=== PATIENT | male | born 1930 | race Two or more races ===

== ENCOUNTER 2017-05-08 11:24 | Inpatient (IN) | payer MEDICARE, OTHER ==
[~2017-05-08] VITALS: Ht 172.7 cm; Wt 54.2 kg
--- NOTE | 2017-05-08 12:38 | RAD ---
Portable AP upright view CXR: Clinical indications: Atrial fibrillation. Comparison: None available. Findings: There is an asymmetric nodular density of the right apex. There is a calcified pleural plaque of the right lateral lower lung zone. No lung consolidation with air bronchograms is seen otherwise. No pleural effusion or pneumothorax is seen. The heart size and mediastinum and pulmonary vasculature and both desmond are unremarkable given AP magnification. IMPRESSION: Right apical nodule. This may represent overlying first rib costal cartilage but due to it's asymmetry, recommend an apical lordotic chest x-ray for further evaluation to exclude a right upper lobe lung nodule.
--- NOTE | 2017-05-08 12:42 | RAD ---
Clinical indications: Give impression. Altered mental status.. Technique: Noncontrast axial cross sectional scanning of the head was performed. IMPRESSION: None available. Findings: No acute intracranial hemorrhage or midline shift or mass-effect or hydrocephalus or extra-axial fluid collection is seen. Mild bilateral periventricular white matter hypodensity is seen consistent with chronic small vessel ischemic disease in this age group. No asymmetric sulci effacement is seen. No skull fracture or pneumocephalus is seen. No opacification of the mastoid sinuses or the paranasal sinuses is seen. The maxillary sinuses are not completely seen in this study. Impression: No acute intracranial hemorrhage is seen. Mild chronic small vessel ischemic disease. PQRS Compliance Statement: One or more of the following individualized dose reduction techniques were utilized for this examination: 1. Automated exposure control 2. Adjustment of the mA and/or kV according to patient size 3. Use of iterative reconstruction technique
[2017-05-08 12:58] LABS: BASO % 1 % (0-3); EOS % 1 % (0-3); HEMATOCRIT 38.3 % (39.0-53.0); HEMOGLOBIN 13.3 g/dL (13.0-17.5); LYMPH # 1.1 x10^3/uL (1.0-4.8); LYMPH % 22 % (24-48); MEAN CORPUSCULAR HEMOGLOBIN 34 pg (25-35); MEAN CORPUSCULAR HGB CONC 35 g/dL (31-37); MEAN CORPUSCULAR VOLUME 98 fL (79-100); MONO # 0.6 x10^3/uL (0.0-1.1); MONO % 11 % (0-9); NEUT # 3.4 x10^3uL (1.8-7.7); NEUT % 66 % (31-73); PLATELET COUNT 261 x10^3/uL (140-400); RED CELL DISTRIBUTION WIDTH 14.5 % (11.5-14.5); WHITE BLOOD COUNT 5.2 x10^3/uL (4.0-11.0)
[2017-05-08 13:09] LABS: ALBUMIN 3.3 g/dL (3.4-5.0); CALCIUM 8.8 mg/dL (8.5-10.1); CREATININE 0.9 mg/dL (0.7-1.3); DIRECT BILIRUBIN 0.2 mg/dL (0.0-0.2); MAGNESIUM 1.9 mg/dL (1.8-2.4); POTASSIUM 3.5 mmol/L (3.5-5.1); TOTAL BILIRUBIN 0.6 mg/dL (0.2-1.0); TOTAL PROTEIN 6.5 g/dL (6.4-8.2)
--- NOTE | 2017-05-08 13:09 | EKG ---
[address] [address] Test Date: 2017-05-08 Test Time: 12:59:57 Pat Name: KATIE BATISTA Department: Room: Gender: M Psychometrist: : 1930 Requested By: KYLIE RHODES Order Number: [id number] Reading MD: Min Shabazz MD Measurements Intervals [place] Rate: 76 P: W[place]: QRS: 23 QRSD: 78 T: 36 QT: 370 QTc: 420 Interpretive Statements SR PACS Electronically Signed On 05-10-2017 13:47:33 CDT by Min Shabazz MD
--- NOTE | 2017-05-08 13:24 | PHYS DOC ---
Adult General Chief Complaint Chief Complaint Suicidal ideation [facility] Patient is an 86-year-old gentleman who presents with suicidal ideation. History is difficult to obtain from the patient. He says he wants to put a gun to his head and ended all. He says it all went down after having a minor surgical procedure 3 weeks ago. He does relate his history of atrial fibrillation. This is chronic. He denies suicidal ideation or attempts in the past. He is here with his 2 sons neither who have DPOA. He says he has diffuse whole-body pain. Denies any chest pain. No palpitations. No shortness of breath. He has a history of AAA has no abdominal pain. He is originally from [place] but speaks Italian rather well Review of Systems Review of Systems Constitutional: Denies fever or chills Eyes: Denies change in visual acuity, redness, or eye pain HENT: Denies nasal congestion or sore throat Respiratory: Denies cough or shortness of breath Cardiovascular: No additional information not addressed in HPI GI: Denies abdominal pain, nausea, vomiting, bloody stools or diarrhea : Denies dysuria or hematuria Musculoskeletal: Denies back pain or joint pain Integument: Denies rash or skin lesions Neurologic: Denies headache, focal weakness or sensory changes Endocrine: Denies polyuria or polydipsia Allergies Allergies Allergies Coded Allergies Type Severity Reaction Last Updated Verified No Known Drug Allergies 05/08/17 No Physical Exam Physical Exam Constitutional: Well developed, well nourished, no acute distress, non-toxic appearance. HENT: Normocephalic, atraumatic, bilateral external ears normal, oropharynx moist, no oral exudates, nose normal. Eyes: PERRLA, EOMI, conjunctiva normal, no discharge. Neck: Normal range of motion, no tenderness, supple, no stridor. Cardiovascular: Irregeularly irregular rate and rhythm; rate controlled. Lungs & Thorax: Bilateral breath sounds clear to auscultation Abdomen: Bowel sounds normal, soft, no tenderness, no masses, no pulsatile masses. Skin: Warm, dry, no erythema, no rash. Back: No tenderness, no CVA tenderness. Extremities: No tenderness, no cyanosis, no clubbing, ROM intact, trace edema. Neurologic: Alert and oriented X 3, normal motor function, normal sensory function, no focal deficits noted. Psychologic:States is suicidal and want to shoot himself Current Patient Data Vital Signs Vital Signs Date Time Temp Pulse Resp B/P (MAP) Pulse Ox O2 Delivery O2 Flow Rate FiO2 05/08/17 13:30 75 18 144/86 (105) 98 Room Air 05/08/17 11:25 97.9 Lab Results Laboratory Tests Test 05/08/17 12:42 05/08/17 13:22 White Blood Count 5.2 x10^3/uL (4.0-11.0) Red Blood Count 3.90 x10^6/uL (4.30-5.70) L Hemoglobin 13.3 g/dL (13.0-17.5) Hematocrit 38.3 % (39.0-53.0) L Mean Corpuscular Volume 98 fL (79-100) Mean Corpuscular Hemoglobin 34 pg (25-35) Mean Corpuscular Hemoglobin Concent 35 g/dL (31-37) Red Cell Distribution Width 14.5 % (11.5-14.5) Platelet Count 261 x10^3/uL (140-400) Neutrophils (%) (Auto) 66 % (31-73) Lymphocytes (%) (Auto) 22 % (24-48) L Monocytes (%) (Auto) 11 % (0-9) H Eosinophils (%) (Auto) 1 % (0-3) Basophils (%) (Auto) 1 % (0-3) Neutrophils # (Auto) 3.4 x10^3uL (1.8-7.7) Lymphocytes # (Auto) 1.1 x10^3/uL (1.0-4.8) Monocytes # (Auto) 0.6 x10^3/uL (0.0-1.1) Eosinophils # (Auto) 0.0 x10^3/uL (0.0-0.7) Basophils # (Auto) 0.0 x10^3/uL (0.0-0.2) Prothrombin Time 9.9 SEC (9.4-11.4) Prothrombin Time INR 1.0 (0.9-1.1) Sodium Level 137 mmol/L (136-145) Potassium Level 3.5 mmol/L (3.5-5.1) Chloride Level 101 mmol/L (98-107) Carbon Dioxide Level 28 mmol/L (21-32) Anion Gap 8 (6-14) Blood Urea Nitrogen 9 mg/dL (8-26) Creatinine 0.9 mg/dL (0.7-1.3) Estimated GFR (Cockcroft-Gault) 80.0 Glucose Level 95 mg/dL (70-99) Calcium Level 8.8 mg/dL (8.5-10.1) Magnesium Level 1.9 mg/dL (1.8-2.4) Total Bilirubin 0.6 mg/dL (0.2-1.0) Direct Bilirubin 0.2 mg/dL (0.0-0.2) Aspartate Amino Transferase (AST) 25 U/L (15-37) Alanine Aminotransferase (ALT) 31 U/L (16-63) Alkaline Phosphatase 50 U/L (46-116) Troponin I Quantitative < 0.017 ng/mL (0-0.055) Total Protein 6.5 g/dL (6.4-8.2) Albumin 3.3 g/dL (3.4-5.0) L Ethyl Alcohol Level < 10 mg/dL (0-10) Urine Collection Type Unknown Urine Color Yellow Urine Clarity Clear Urine pH 7.0 Urine Specific [place] 1.020 Urine Protein Neg (NEG-TRACE) Urine Glucose (UA) Neg mg/dL (NEG) Urine Ketones (Stick) 15 mg/dL (NEG) Urine Blood Mod (NEG) Urine Nitrite Neg (NEG) Urine Bilirubin Neg (NEG) Urine Urobilinogen Dipstick 0.2 mg/dL (0.2 mg/dL) Urine Leukocyte Esterase Neg (NEG) Urine RBC >40 /HPF (0-2) Urine WBC 5-10 /HPF (0-4) Urine Squamous Epithelial Cells Occ /LPF Urine Bacteria Few /HPF (0-FEW) Urine Mucus Slight /LPF Urine Opiates Screen Neg (NEG) Urine Methadone Screen Neg (NEG) Urine Barbiturates Neg (NEG) Urine Phencyclidine Screen Neg (NEG) Urine Amphetamine/Methamphetamine Neg (NEG) Urine Benzodiazepines Screen Neg (NEG) Urine Cocaine Screen Neg (NEG) Urine Cannabinoids Screen Neg (NEG) Urine Ethyl Alcohol Neg (NEG) EKG EKG atrial fibrillation, rate controlled without signs of ischemia.[] Radiology/Procedures Radiology/Procedures []Portable AP upright view CXR: Clinical indications: Atrial fibrillation. Comparison: None available. Findings: There is an asymmetric nodular density of the right apex. There is a calcified pleural plaque of the right lateral lower lung zone. No lung consolidation with air bronchograms is seen otherwise. No pleural effusion or pneumothorax is seen. The heart size and mediastinum and pulmonary vasculature and both desmond are unremarkable given AP magnification. IMPRESSION: Right apical nodule. This may represent overlying first rib costal cartilage but due to it's asymmetry, recommend an apical lordotic chest x-ray for further evaluation to exclude a right upper lobe lung nodule. DICTATED AND SIGNED BY: HUMBERTO ZAIDI MD DATE: 05/08/17 1233 CC: KYLIE RHODES MD; PCP,NO ~ PROCEDURE: CT HEAD WO CONTRAST Clinical indications: Give impression. Altered mental status.. Technique: Noncontrast axial cross sectional scanning of the head was performed. IMPRESSION: None available. Findings: No acute intracranial hemorrhage or midline shift or mass-effect or hydrocephalus or extra-axial fluid collection is seen. Mild bilateral periventricular white matter hypodensity is seen consistent with chronic small vessel ischemic disease in this age group. No asymmetric sulci effacement is seen. No skull fracture or pneumocephalus is seen. No opacification of the mastoid sinuses or the paranasal sinuses is seen. The maxillary sinuses are not completely seen in this study. Impression: No acute intracranial hemorrhage is seen. Mild chronic small vessel ischemic disease. Portable AP upright view CXR: Clinical indications: Right apical nodule. Apical lordotic view.. IMPRESSION: There is a persistent right upper lobe nodule which projects inferior to the anterior costal cartilage of the first rib and therefore may represent a true lung nodule. Therefore, recommend chest CT with IV contrast for further evaluation. Impressions: depression with suicidal ideation Course & Med Decision Making Course & Med Decision Making Pertinent Labs and Imaging studies reviewed. (See chart for details) Labs are essentially normal. EKG is controlled Atria fibrillation. Imaging is normal except for possible right lung nodule. Will order lordotic view. Patient interviewed by air conditioning mechanic industrial tele specialist Dr. Velazquez and is deemed to require inpatient admission. He is medically cleared fo inpt. psych unit. Admission has been arranged to geriatric psychiatry unit. Lordotic view shows persistent lung nodule. I did discuss with Dr. Sandoval the hospitalist who will follow up and consut on atrial Fibrillation and Follow up of the lung nodule. I have shared this plan with the family. Final Impression Final Impression major depressive disorder; suicidal ideation, atrial fibrillation, lung nodule] Problems: Dragon Disclaimer Dragon Disclaimer This electronic medical record was generated, in whole or in part, using a voice recognition dictation system. KYLEI RHODES MD May 08, 2017 13:24
[2017-05-08 13:41] LABS: AMPHETAMINE/METHAMPHETAMINE NEG (NEG); BARBITURATES NEG (NEG); BENZODIAZEPINES NEG (NEG); BILIRUBIN,URINE NEG (NEG); CANNABINOIDS NEG (NEG); CLARITY,URINE CLEAR; COCAINE NEG (NEG); COLOR,URINE YELLOW; GLUCOSE,URINE NEG (NEG); METHADONE NEG (NEG); OPIATES NEG (NEG); PHENCYCLIDINE NEG (NEG)
[2017-05-08 13:42] LABS: BACTERIA,URINE FEW /HPF (0-FEW); NITRITE,URINE NEG (NEG); RBC,URINE >40 /HPF (0-2); SQUAMOUS EPITHELIAL CELL,UR OCC /LPF; UROBILINOGEN,URINE 0.2 mg/dL (0.2 mg/dL)
--- NOTE | 2017-05-08 14:54 | RAD ---
Portable AP upright view CXR: Clinical indications: Right apical nodule. Apical lordotic view.. IMPRESSION: There is a persistent right upper lobe nodule which projects inferior to the anterior costal cartilage of the first rib and therefore may represent a true lung nodule. Therefore, recommend chest CT with IV contrast for further evaluation.
[2017-05-08] MEDS ORDERED: MAG HYDROX/AL HYDROX/SIMETH 30 ML ORAL.SUSP PO PRN (16:15)
[2017-05-08] MEDS ORDERED: METHYL SALICYLATE/MENTHOL TOPICAL OINTMENT 29GM TUBE. TP PRN (16:15)
[2017-05-08] MEDS ORDERED: MAGNESIUM HYDROXIDE 2,400 MG/30 ML ORAL.SUSP. PO PRN (16:15)
[2017-05-08] MEDS ORDERED: ACETAMINOPHEN 325 MG TABLET PO PRN (16:15)
[2017-05-08 16:19] VITALS: BP 134/68
[2017-05-08] MEDS ORDERED: POTA20LI27 PO (17:21)
[2017-05-08] MEDS ORDERED: METO25TA4 PO (17:21)
[2017-05-08] MEDS ORDERED: OLOP2.5D EACHEYE (17:21)
[2017-05-08] MEDS: METOPROLOL TART IMMED RELEASE 25 MG TABLET PO SCH (20:18)
[2017-05-08] MEDS: MIRTAZAPINE 7.5 MG TABLET. PO SCH (20:18)
--- NOTE | 2017-05-08 20:37 | PDOC ---
Exam Óscar Demential Exam: Óscar Note: Please also refer to the separate dictated note~for this date of service dictated separately.~Patient seen individually. Discussed the patient with Nursing staff reviewed the chart.~Reviewed interim history and current functioning. Reviewed vital signs,~Labs/ Radiology~and current medications noted below. Continue current treatment with the changes noted in the dictated addendum note Assessment: Vital Signs: Vital Signs Date Time Temp Pulse Resp B/P (MAP) Pulse Ox O2 Delivery O2 Flow Rate FiO2 05/08/17 20:18 75 134/68 05/08/17 16:19 97.7 14 99 Room Air I&O Intake and Output 05/09/17 07:00 Intake Total 240 ml Balance 240 ml Intake Oral 240 ml Labs: Laboratory Tests Test 05/08/17 12:42 05/08/17 13:22 White Blood Count 5.2 x10^3/uL (4.0-11.0) Red Blood Count 3.90 x10^6/uL (4.30-5.70) L Hemoglobin 13.3 g/dL (13.0-17.5) Hematocrit 38.3 % (39.0-53.0) L Mean Corpuscular Volume 98 fL (79-100) Mean Corpuscular Hemoglobin 34 pg (25-35) Mean Corpuscular Hemoglobin Concent 35 g/dL (31-37) Red Cell Distribution Width 14.5 % (11.5-14.5) Platelet Count 261 x10^3/uL (140-400) Neutrophils (%) (Auto) 66 % (31-73) Lymphocytes (%) (Auto) 22 % (24-48) L Monocytes (%) (Auto) 11 % (0-9) H Eosinophils (%) (Auto) 1 % (0-3) Basophils (%) (Auto) 1 % (0-3) Neutrophils # (Auto) 3.4 x10^3uL (1.8-7.7) Lymphocytes # (Auto) 1.1 x10^3/uL (1.0-4.8) Monocytes # (Auto) 0.6 x10^3/uL (0.0-1.1) Eosinophils # (Auto) 0.0 x10^3/uL (0.0-0.7) Basophils # (Auto) 0.0 x10^3/uL (0.0-0.2) Prothrombin Time 9.9 SEC (9.4-11.4) Prothrombin Time INR 1.0 (0.9-1.1) Sodium Level 137 mmol/L (136-145) Potassium Level 3.5 mmol/L (3.5-5.1) Chloride Level 101 mmol/L (98-107) Carbon Dioxide Level 28 mmol/L (21-32) Anion Gap 8 (6-14) Blood Urea Nitrogen 9 mg/dL (8-26) Creatinine 0.9 mg/dL (0.7-1.3) Estimated GFR (Cockcroft-Gault) 80.0 Glucose Level 95 mg/dL (70-99) Calcium Level 8.8 mg/dL (8.5-10.1) Magnesium Level 1.9 mg/dL (1.8-2.4) Total Bilirubin 0.6 mg/dL (0.2-1.0) Direct Bilirubin 0.2 mg/dL (0.0-0.2) Aspartate Amino Transferase (AST) 25 U/L (15-37) Alanine Aminotransferase (ALT) 31 U/L (16-63) Alkaline Phosphatase 50 U/L (46-116) Troponin I Quantitative < 0.017 ng/mL (0-0.055) Total Protein 6.5 g/dL (6.4-8.2) Albumin 3.3 g/dL (3.4-5.0) L Ethyl Alcohol Level < 10 mg/dL (0-10) Urine Collection Type Unknown Urine Color Yellow Urine Clarity Clear Urine pH 7.0 Urine Specific [place] 1.020 Urine Protein Neg (NEG-TRACE) Urine Glucose (UA) Neg mg/dL (NEG) Urine Ketones (Stick) 15 mg/dL (NEG) Urine Blood Mod (NEG) Urine Nitrite Neg (NEG) Urine Bilirubin Neg (NEG) Urine Urobilinogen Dipstick 0.2 mg/dL (0.2 mg/dL) Urine Leukocyte Esterase Neg (NEG) Urine RBC >40 /HPF (0-2) Urine WBC 5-10 /HPF (0-4) Urine Squamous Epithelial Cells Occ /LPF Urine Bacteria Few /HPF (0-FEW) Urine Mucus Slight /LPF Urine Opiates Screen Neg (NEG) Urine Methadone Screen Neg (NEG) Urine Barbiturates Neg (NEG) Urine Phencyclidine Screen Neg (NEG) Urine Amphetamine/Methamphetamine Neg (NEG) Urine Benzodiazepines Screen Neg (NEG) Urine Cocaine Screen Neg (NEG) Urine Cannabinoids Screen Neg (NEG) Urine Ethyl Alcohol Neg (NEG) Current Medications: Meds: Current Medications Acetaminophen (Tylenol) 650 mg PRN Q6HRS PRN PO PAIN / TEMP; Start 05/08/17 at 16:15 Multi-Ingredient Ointment (Analgesic [place]) 1 nicole PRN QID PRN TP MUSCLE PAIN; Start 05/08/17 at 16:15 Al Hydroxide/Mg Hydroxide (Mylanta Plus Xs) 15 ml PRN AFTMEALHC PRN PO DYSPEPSIA; Start 05/08/17 at 16:15 Magnesium Hydroxide (Milk Of Magnesia) 2,400 mg PRN QHS PRN PO CONSTIPATION; Start 05/08/17 at 16:15 Metoprolol Tartrate (Lopressor) 25 mg BID PO Last administered on 05/08/17 20: 18; Start 05/08/17 at 21:00 Potassium Chloride (KCl Oral Soln) 20 meq DAILY PO ; Start 05/09/17 at 09:00 Ketotifen Fumarate (Zaditor) 1 drop BID OU ; Start 05/08/17 at 21:00 Fluoxetine HCl (PROzac) 20 mg DAILY PO ; Start 05/09/17 at 09:00 Mirtazapine (Remeron) 7.5 mg QHS PO Last administered on 05/08/17 20:18; Start 05/08/17 at 21:00 Olanzapine (ZyPREXA ZYDIS) 2.5 mg PRN Q2HR PRN PO ANXIETY / AGITATION; Start 05/08/17 at 19:00 Active Scripts Active Reported Metoprolol Tartrate 25 Mg Tablet 25 Mg PO BID Potassium Chloride Oral Liquid (Potassium Chloride) 20 Meq/15 Ml Liquid 20 Meq PO DAILY Pataday (Olopatadine Hcl) 2.5 Ml Drops 1 Drop EACHEYE DAILY CHELSEA RINCON MD May 08, 2017 20:37
[2017-05-08] MEDS: KETOTIFEN FUMARATE 0.025% OPHT SOLUTION BOTTLE. OU SCH (21:00)
[2017-05-09 06:09] VITALS: BP 140/79
[2017-05-09 06:46] LABS: ALBUMIN 2.9 g/dL (3.4-5.0); CALCIUM 8.4 mg/dL (8.5-10.1); CREATININE 0.9 mg/dL (0.7-1.3); MAGNESIUM 1.9 mg/dL (1.8-2.4); POTASSIUM 3.3 mmol/L (3.5-5.1); TOTAL BILIRUBIN 0.5 mg/dL (0.2-1.0); TOTAL PROTEIN 5.9 g/dL (6.4-8.2)
[2017-05-09 06:57] LABS: BASO % 1 % (0-3); EOS # 0.1 x10^3/uL (0.0-0.7); EOS % 1 % (0-3); HEMATOCRIT 38.3 % (39.0-53.0); HEMOGLOBIN 13.4 g/dL (13.0-17.5); LYMPH # 1.8 x10^3/uL (1.0-4.8); LYMPH % 37 % (24-48); MEAN CORPUSCULAR HEMOGLOBIN 34 pg (25-35); MEAN CORPUSCULAR HGB CONC 35 g/dL (31-37); MEAN CORPUSCULAR VOLUME 99 fL (79-100); MONO # 0.6 x10^3/uL (0.0-1.1); MONO % 12 % (0-9); NEUT # 2.4 x10^3uL (1.8-7.7); NEUT % 49 % (31-73); PLATELET COUNT 247 x10^3/uL (140-400); RED BLOOD COUNT 3.88 x10^6/uL (4.30-5.70); RED CELL DISTRIBUTION WIDTH 14.2 % (11.5-14.5); WHITE BLOOD COUNT 4.9 x10^3/uL (4.0-11.0)
[2017-05-09] MEDS: METOPROLOL TART IMMED RELEASE 25 MG TABLET PO SCH ×2 (10:06→19:39)
[2017-05-09] MEDS: POTASSIUM CHLORIDE 20 MEQ/15 ML ORAL LIQUID. PO SCH (10:09)
[2017-05-09] MEDS: FLUoxetine HCL 20 MG CAPSULE PO SCH (10:09)
[2017-05-09] MEDS: KETOTIFEN FUMARATE 0.025% OPHT SOLUTION BOTTLE. OU SCH ×2 (10:10→19:43)
[2017-05-09] MEDS ORDERED: POTASSIUM CHLORIDE 20 MEQ TABLET.ER. PO ONE (12:45)
--- NOTE | 2017-05-09 13:04 | HP ---
ADMIT DATE: 05/08/2017 PSYCHIATRIC ADMISSION HISTORY/EVALUATION This is a late entry, date of service 05/08/2017, covers elements not covered in my initial note of 05/08/2017. The patient seen individually evening of 05/08/2017. Discussed with nursing staff, reviewed the chart. IDENTIFYING DATA: I had previously discussed the patient with the nursing staff on several occasions after he presented to the Emergency Room with his family on account of dangerous, out of control behaviors, very confused with question whether he is able to make voluntary decisions. A psychiatric consult was held in the Emergency Room with a tele psychiatry services recommending inpatient hospitalization and the patient's ability to sign in for himself and I have reviewed those records in detail as well. CHIEF COMPLAINT: "I'm okay." HISTORY OF PRESENT ILLNESS: The patient was brought in by the family to the Emergency Room on account of worsening symptoms of depression, suicidal statements, increasing confusion. He has been increasingly irritable, forgetful, decreased restorative sleep, and decreased appetite with weight loss. The patient's son and daughter brought him into the Emergency Room secondary to suicidal ideation. The patient had begun talking about suicide and shooting himself. Given the recent changes and the neurovegetative symptoms and mood symptoms, family became very concerned, brought him to the ER. Tele psychiatrist evaluated the patient with the daughter interpreting as the patient was preferring to speak in Beninese. Nevertheless, he communicated in Liberian with me even though hesitantly. He admits to the suicidal ideation, tense to minimize he has been more suspicious delusional, no active homicidal ideation. PAST PSYCHIATRIC HISTORY: As above. Family states the patient has been depressed off and on periodically throughout his adult life. He also likely has symptoms of PTSD from being near the nuclear tests on the [employer] [place] home as well as the [place]. PAST MEDICAL HISTORY: Positive for dehydration, hemorrhoids, hemorrhoidectomy 3 weeks ago. Appetite has decreased as he is fearful of defecating, consequent to the pain he had experienced previously prior to the hemorrhoidectomy, history of hypertension, atrial fibrillation, diabetes mellitus, status post GA, hyperlipidemia, generalized pain, Accu-Cheks daily. CODE STATUS: Full. DIET: Regular. Ambulates with walker. UA: Reflex to culture. CURRENT PSYCHOTROPICS: Negative on admission, but the telepsychiatrist had recommended Prozac 20 mg a day, which will go ahead and initiate in addition to what is noted below by me. FAMILY HISTORY: Noncontributory. SOCIAL HISTORY: No alcohol or drug abuse, physical, sexual or elder abuse. He is not known to be a perpetrator. MENTAL STATUS EXAMINATION: The patient was seen individually evening of 05/08/2017. He is oriented to himself and situation, unaware of the year when I questioned him, but he was aware of the year when the nursing staff questioned him. He admits to being depressed, feeling hopeless, helpless, worthless with fleeting suicidal ideation, no active intent or plan, no attempt. Speech has some latency, often responses monosyllabic. Abstraction fair, computation impaired, attention span short. Mood and affect depressed, paranoid, delusional. LABORATORY DATA: Reviewed. REVIEW OF SYSTEMS: No CV, , pulmonary, eye, ENT system symptoms on review. Gait unsteady. 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 Rest of diagnoses as above. Probable PTSD. PLAN: Admit to the geropsychiatry unit at [facility]. Request medical followup with Dr. Sandoval/Dr. Ochoa. I will see the patient daily individually from a psychiatric standpoint. Start Prozac 20 mg a day, Remeron 7.5 mg p.o. at bedtime both for his insomnia and to help stimulate the appetite. Zyprexa 2.5 mg q.2 hours p.r.n. psychosis, agitation. May consider prazosin for PTSD symptoms, but we will see how he initially does on the Prozac and Remeron. Make further adjustments post baseline assessment. CHELSEA RINCON MD DR: SHAZIA/shanta JOB#: [id number] / [id number]
--- NOTE | 2017-05-09 13:20 | HP ---
ADMIT DATE: 05/08/2017 REASON FOR ADMISSION TO THE SENIOR BEHAVIORAL UNIT: This is an 86-year-old male who was referred from [facility]. He lives at home with his , but apparently he has not been eating. He has threatened to harm himself. He has been obsessive and anxious about the culture, resistive to female authority, feels helpless and without control. He recently had a hemorrhoid surgery about 3 weeks ago. PAST MEDICAL HISTORY: Anxiety disorder, major depressive disorder, hemorrhoids with surgery, hypertension, atrial fibrillation, SC, increased lipids, diabetes, which he denies and recent hospitalizations for dehydration. MEDICATIONS: The patient has been not taking his medications, but he is supposed to be taking Prozac 20 mg, although he is supposed to be taking metoprolol 25 b.i.d., Pataday 1 drop daily and potassium 20 mEq a day. SOCIAL HISTORY: The patient was in the . He states he was exposed to atomic bomb test in 6. Never smoked. Does not drink. Lives at home with his . 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 REVIEW OF SYSTEMS: The patient feels weak, has some problems passing his urine, has lost a lot of weight from not eating, feels depressed and feels like he might harm himself. No chest pain, no shortness of breath. PHYSICAL EXAMINATION: VITAL SIGNS: Blood pressure 140/79, pulse 69, respirations 18, pulse ox 97% on room air, temperature 97.7. Height 68 inches, weight 121.25 pounds and has a BMI of 18. GENERAL: Very thin, cachectic-appearing male, in no acute distress. He is mildly hard of hearing. HEENT: His TMs were intact without erythema. His eyes were clear. He wears glasses. His nose was patent. His throat was clear. The tongue was midline. NECK: Supple, without adenopathy. LUNGS: Clear to auscultation. CARDIOVASCULAR: Irregular rhythm and rate with a 2/6 systolic murmur heard. ABDOMEN: Soft, nontender. EXTREMITIES: Without edema. SKIN: The patient has some very mild skin breakdown around his buttocks. I checked the hemorrhoidectomy site that was fine. He refused prostate exam. In the hemorrhoidectomy site, I cannot even tell if it was external hemorrhoidectomy, it is completely healed. PSYCHIATRIC: Mood is depressed. He does appear to be alert and oriented, answers questions appropriately. LABORATORY DATA: CBC: Hemoglobin 13.4, hematocrit 38.3. Chemistry: Potassium 3.3, albumin is 3.3. Urinalysis is positive for blood, 5-10 white cells. ASSESSMENT: 1. Major depressive disorder. 2. Anxiety. 3. Atrial fibrillation, questionable duration. 4. Diabetes. His glucoses have been normal. Hemoglobin A1c is pending. 5. Weight loss. 6. Urinary urgency. 7. Hematuria, questionable etiology, we will repeat it. 8. Questionable UTI. 5. Hypokalemia. PLAN: Reconcile medications. Cardiology consult for the AFib. Protein supplements for his protein calorie malnutrition. Might have an underlying cancer that will need to be worked up as soon as he is discharged, but we will continue to monitor. ANA MARÍA LARA DO DR: BIJAN/shanta JOB#: [id number] / [id number]
[2017-05-09 14:20] LABS: THYROID STIM HORMONE (TSH) 1.938 uIU/mL (0.358-3.740)
[2017-05-09 15:41] LABS: BILIRUBIN,URINE NEG (NEG); CLARITY,URINE CLEAR; COLOR,URINE YELLOW; GLUCOSE,URINE NEG (NEG)
[2017-05-09 15:42] LABS: BACTERIA,URINE 0 /HPF (0-FEW); NITRITE,URINE NEG (NEG); RBC,URINE 0 /HPF (0-2); SQUAMOUS EPITHELIAL CELL,UR OCC /LPF; UROBILINOGEN,URINE 0.2 mg/dL (0.2 mg/dL); WBC,URINE OCC /HPF (0-4)
[2017-05-09 16:06] VITALS: BP 114/66
[2017-05-09 18:10] LABS: T3 TOTAL 80 ng/dL (71-180); THYROXINE 8.5 ug/dL (4.5-12.0)
[2017-05-09] MEDS ORDERED: traZODone 50 MG TABLET. PO PRN (18:15)
[2017-05-09] MEDS: MIRTAZAPINE 7.5 MG TABLET. PO SCH (19:40)
[2017-05-09] MEDS: TAMSULOSIN 0.4 MG CAP.ER.24H. PO SCH (19:43)
--- NOTE | 2017-05-09 20:51 | PDOC ---
Exam Óscar Demential Exam: Óscar Note: Please also refer to the separate dictated note~for this date of service dictated separately.~Patient seen individually. Discussed the patient with Nursing staff reviewed the chart.~Reviewed interim history and current functioning. Reviewed vital signs,~Labs/ Radiology~and current medications noted below. Continue current treatment with the changes noted in the dictated addendum note Assessment: Vital Signs: Vital Signs Date Time Temp Pulse Resp B/P (MAP) Pulse Ox O2 Delivery O2 Flow Rate FiO2 05/09/17 19:39 79 110/68 05/09/17 16:06 98.4 18 95 05/08/17 16:19 Room Air I&O Intake and Output 05/10/17 07:00 Intake Total 960 ml Balance 960 ml Intake Oral 960 ml Labs: Laboratory Tests Test 05/09/17 06:18 05/09/17 07:47 05/09/17 15:00 White Blood Count 4.9 x10^3/uL (4.0-11.0) Red Blood Count 3.88 x10^6/uL (4.30-5.70) L Hemoglobin 13.4 g/dL (13.0-17.5) Hematocrit 38.3 % (39.0-53.0) L Mean Corpuscular Volume 99 fL (79-100) Mean Corpuscular Hemoglobin 34 pg (25-35) Mean Corpuscular Hemoglobin Concent 35 g/dL (31-37) Red Cell Distribution Width 14.2 % (11.5-14.5) Platelet Count 247 x10^3/uL (140-400) Neutrophils (%) (Auto) 49 % (31-73) Lymphocytes (%) (Auto) 37 % (24-48) Monocytes (%) (Auto) 12 % (0-9) H Eosinophils (%) (Auto) 1 % (0-3) Basophils (%) (Auto) 1 % (0-3) Neutrophils # (Auto) 2.4 x10^3uL (1.8-7.7) Lymphocytes # (Auto) 1.8 x10^3/uL (1.0-4.8) Monocytes # (Auto) 0.6 x10^3/uL (0.0-1.1) Eosinophils # (Auto) 0.1 x10^3/uL (0.0-0.7) Basophils # (Auto) 0.0 x10^3/uL (0.0-0.2) Sodium Level 138 mmol/L (136-145) Potassium Level 3.3 mmol/L (3.5-5.1) L Chloride Level 102 mmol/L (98-107) Carbon Dioxide Level 28 mmol/L (21-32) Anion Gap 8 (6-14) Blood Urea Nitrogen 9 mg/dL (8-26) Creatinine 0.9 mg/dL (0.7-1.3) Estimated GFR (Cockcroft-Gault) 80.0 BUN/Creatinine Ratio 10 (6-20) Glucose Level 83 mg/dL (70-99) Calcium Level 8.4 mg/dL (8.5-10.1) L Magnesium Level 1.9 mg/dL (1.8-2.4) Total Bilirubin 0.5 mg/dL (0.2-1.0) Aspartate Amino Transferase (AST) 22 U/L (15-37) Alanine Aminotransferase (ALT) 28 U/L (16-63) Alkaline Phosphatase 47 U/L (46-116) Total Protein 5.9 g/dL (6.4-8.2) L Albumin 2.9 g/dL (3.4-5.0) L Albumin/Globulin Ratio 1.0 (1.0-1.7) Triglycerides Level 80 mg/dL (0-150) Cholesterol Level 194 mg/dL (0-200) LDL Cholesterol, Calculated 122 mg/dL (0-100) H VLDL Cholesterol, Calculated 16 mg/dL (0-40) Non-HDL Cholesterol Calculated 138 mg/dL (0-129) H HDL Cholesterol 56 mg/dL (40-60) Cholesterol/HDL Ratio 3.0 Thyroid Stimulating Hormone (TSH) 1.938 uIU/mL (0.358-3.740) Glucose (Fingerstick) 78 mg/dL (70-99) Urine Collection Type Clean catch Urine Color Yellow Urine Clarity Clear Urine pH 7.0 Urine Specific [place] 1.015 Urine Protein Neg (NEG-TRACE) Urine Glucose (UA) Neg mg/dL (NEG) Urine Ketones (Stick) Neg mg/dL (NEG) Urine Blood Neg (NEG) Urine Nitrite Neg (NEG) Urine Bilirubin Neg (NEG) Urine Urobilinogen Dipstick 0.2 mg/dL (0.2 mg/dL) Urine Leukocyte Esterase Neg (NEG) Urine RBC 0 /HPF (0-2) Urine WBC Occ /HPF (0-4) Urine Squamous Epithelial Cells Occ /LPF Urine Bacteria 0 /HPF (0-FEW) Urine Mucus Slight /LPF Current Medications: Meds: Current Medications Acetaminophen (Tylenol) 650 mg PRN Q6HRS PRN PO PAIN / TEMP; Start 05/08/17 at 16:15 Multi-Ingredient Ointment (Analgesic [place]) 1 nicole PRN QID PRN TP MUSCLE PAIN; Start 05/08/17 at 16:15 Al Hydroxide/Mg Hydroxide (Mylanta Plus Xs) 15 ml PRN AFTMEALHC PRN PO DYSPEPSIA; Start 05/08/17 at 16:15 Magnesium Hydroxide (Milk Of Magnesia) 2,400 mg PRN QHS PRN PO CONSTIPATION; Start 05/08/17 at 16:15 Metoprolol Tartrate (Lopressor) 25 mg BID PO Last administered on 05/09/17 19: 39; Start 05/08/17 at 21:00 Potassium Chloride (KCl Oral Soln) 20 meq DAILY PO Last administered on 10:09; Start 05/09/17 at 09:00 Ketotifen Fumarate (Zaditor) 1 drop BID OU Last administered on 05/09/17 19:43 ; Start 05/08/17 at 21:00 Fluoxetine HCl (PROzac) 20 mg DAILY PO Last administered on 05/09/17 10:09; Start 05/09/17 at 09:00 Mirtazapine (Remeron) 7.5 mg QHS PO Last administered on 05/09/17 19:40; Start 05/08/17 at 21:00 Olanzapine (ZyPREXA ZYDIS) 2.5 mg PRN Q2HR PRN PO ANXIETY / AGITATION; Start 05/08/17 at 19:00 Potassium Chloride (Klor-Con) 40 meq 1X ONCE PO Last administered on 12:45; Start 05/09/17 at 12:45; Stop 05/09/17 at 12:46; Status DC Tamsulosin HCl (Flomax) 0.4 mg QHS PO Last administered on 05/09/17 19:43; Start 05/09/17 at 21:00 Trazodone HCl (Desyrel) 50 mg QHS PO Last administered on 05/09/17t 19:42; Start 05/09/17 at 21:00 Trazodone HCl (Desyrel) 50 mg PRN QHS PRN PO INSOMNIA; Start 05/09/17 at 18:15 Active Scripts Active Reported Metoprolol Tartrate 25 Mg Tablet 25 Mg PO BID Potassium Chloride Oral Liquid (Potassium Chloride) 20 Meq/15 Ml Liquid 20 Meq PO DAILY Pataday (Olopatadine Hcl) 2.5 Ml Drops 1 Drop EACHEYE DAILY Diagnosis: Problems: (1) Anxiety disorder (2) Mild cognitive disorder (3) Impulse control disorder (4) Major depressive disorder, recurrent episode CHELSEA RINCON MD May 09, 2017 20:51
[2017-05-09] MEDS ORDERED: traZODone 50 MG TABLET. PO SCH (21:00)
[2017-05-09 21:41] LABS: BASO % 1 % (0-3); EOS # 0.1 x10^3/uL (0.0-0.7); EOS % 1 % (0-3); HEMATOCRIT 33.2 % (39.0-53.0); HEMOGLOBIN 11.3 g/dL (13.0-17.5); LYMPH # 2.6 x10^3/uL (1.0-4.8); LYMPH % 40 % (24-48); MEAN CORPUSCULAR HEMOGLOBIN 34 pg (25-35); MEAN CORPUSCULAR HGB CONC 34 g/dL (31-37); MEAN CORPUSCULAR VOLUME 100 fL (79-100); MONO # 0.8 x10^3/uL (0.0-1.1); MONO % 13 % (0-9); NEUT % 46 % (31-73); PLATELET COUNT 223 x10^3/uL (140-400); RED BLOOD COUNT 3.32 x10^6/uL (4.30-5.70); RED CELL DISTRIBUTION WIDTH 14.5 % (11.5-14.5); WHITE BLOOD COUNT 6.5 x10^3/uL (4.0-11.0)
[2017-05-09 21:48] LABS: ALBUMIN 2.7 g/dL (3.4-5.0); CALCIUM 7.9 mg/dL (8.5-10.1); GFR 70.8; MAGNESIUM 1.9 mg/dL (1.8-2.4); TOTAL BILIRUBIN 0.3 mg/dL (0.2-1.0); TOTAL PROTEIN 5.4 g/dL (6.4-8.2)
[2017-05-10 01:08] LABS: HEMOGLOBIN A1C 5.1 % (4.8-5.6)
[2017-05-10 05:57] VITALS: BP 121/69
[2017-05-10] MEDS: FLUoxetine HCL 20 MG CAPSULE PO SCH (07:23)
[2017-05-10] MEDS: POTASSIUM CHLORIDE 20 MEQ/15 ML ORAL LIQUID. PO SCH (07:23)
[2017-05-10] MEDS: METOPROLOL TART IMMED RELEASE 25 MG TABLET PO SCH ×2 (07:24→20:36)
[2017-05-10] MEDS: KETOTIFEN FUMARATE 0.025% OPHT SOLUTION BOTTLE. OU SCH ×2 (07:25→20:37)
[2017-05-10] MEDS ORDERED: CHOLECALCIFEROL (VITAMIN D3) 50,000 UNIT CAPSULE PO SCH (14:00)
[2017-05-10 16:10] VITALS: BP 98/64
[2017-05-10] MEDS: TAMSULOSIN 0.4 MG CAP.ER.24H. PO SCH (20:36)
--- NOTE | 2017-05-10 23:43 | PDOC ---
Exam Óscar Demential Exam: Óscar Note: Please also refer to the separate dictated note~for this date of service dictated separately.~Patient seen individually. Discussed the patient with Nursing staff reviewed the chart.~Reviewed interim history and current functioning. Reviewed vital signs,~Labs/ Radiology~and current medications noted below. Continue current treatment with the changes noted in the dictated addendum note Assessment: Vital Signs: Vital Signs Date Time Temp Pulse Resp B/P (MAP) Pulse Ox O2 Delivery O2 Flow Rate FiO2 05/10/17 20:36 70 129/86 05/10/17 16:10 98.4 20 98 05/08/17 16:19 Room Air I&O Intake and Output 05/11/17 07:00 Intake Total 420 ml Balance 420 ml Intake Oral 420 ml # Bowel Movements 1 Labs: Laboratory Tests Test 05/10/17 07:10 Glucose (Fingerstick) 79 mg/dL (70-99) Current Medications: Meds: Current Medications Acetaminophen (Tylenol) 650 mg PRN Q6HRS PRN PO PAIN / TEMP; Start 05/08/17 at 16:15 Multi-Ingredient Ointment (Analgesic [place]) 1 nicole PRN QID PRN TP MUSCLE PAIN; Start 05/08/17 at 16:15 Al Hydroxide/Mg Hydroxide (Mylanta Plus Xs) 15 ml PRN AFTMEALHC PRN PO DYSPEPSIA; Start 05/08/17 at 16:15 Magnesium Hydroxide (Milk Of Magnesia) 2,400 mg PRN QHS PRN PO CONSTIPATION; Start 05/08/17 at 16:15 Metoprolol Tartrate (Lopressor) 25 mg BID PO Last administered on 05/10/17 20: 36; Start 05/08/17 at 21:00 Potassium Chloride (KCl Oral Soln) 20 meq DAILY PO Last administered on 07:23; Start 05/09/17 at 09:00 Ketotifen Fumarate (Zaditor) 1 drop BID OU Last administered on 05/10/17 07:25 ; Start 05/08/17 at 21:00; Stop 05/10/17 at 14:28; Status DC Fluoxetine HCl (PROzac) 20 mg DAILY PO Last administered on 05/10/17 07:23; Start 05/09/17 at 09:00; Stop 05/10/17 at 19:26; Status DC Mirtazapine (Remeron) 7.5 mg QHS PO Last administered on 05/09/17 19:40; Start 05/08/17 at 21:00; Stop 05/10/17 at 19:26; Status DC Olanzapine (ZyPREXA ZYDIS) 2.5 mg PRN Q2HR PRN PO ANXIETY / AGITATION; Start 05/08/17 at 19:00 Potassium Chloride (Klor-Con) 40 meq 1X ONCE PO Last administered on 12:45; Start 05/09/17 at 12:45; Stop 05/09/17 at 12:46; Status DC Tamsulosin HCl (Flomax) 0.4 mg QHS PO Last administered on 05/10/17 20:36; Start 05/09/17 at 21:00 Trazodone HCl (Desyrel) 50 mg QHS PO Last administered on 05/09/17 19:42; Start 05/09/17 at 21:00; Stop 05/10/17 at 19:26; Status DC Trazodone HCl (Desyrel) 50 mg PRN QHS PRN PO INSOMNIA; Start 05/09/17 at 18:15 ; Stop 05/10/17 at 19:26; Status DC Vitamin D (Vitamin D3) 50,000 unit WEEKLY PO Last administered on 05/10/17 14: 39; Start 05/10/17 at 14:00 Ketotifen Fumarate (Zaditor) 1 drop BID OU Last administered on 05/10/17 20:37 ; Start 05/10/17 at 14:28 Active Scripts Active Reported Metoprolol Tartrate 25 Mg Tablet 25 Mg PO BID Potassium Chloride Oral Liquid (Potassium Chloride) 20 Meq/15 Ml Liquid 20 Meq PO DAILY Pataday (Olopatadine Hcl) 2.5 Ml Drops 1 Drop EACHEYE DAILY Diagnosis: Problems: (1) Anxiety disorder (2) Mild cognitive disorder (3) Impulse control disorder (4) Major depressive disorder, recurrent episode CHELSEA RINCON MD May 10, 2017 23:43
[2017-05-10 23:56] VITALS: BP 117/80
[2017-05-11 06:10] VITALS: BP 143/88
[2017-05-11] MEDS: KETOTIFEN FUMARATE 0.025% OPHT SOLUTION BOTTLE. OU SCH ×2 (09:14→19:47)
[2017-05-11] MEDS: METOPROLOL TART IMMED RELEASE 25 MG TABLET PO SCH ×2 (09:14→20:13)
[2017-05-11] MEDS: POTASSIUM CHLORIDE 20 MEQ/15 ML ORAL LIQUID. PO SCH (09:14)
[2017-05-11 16:31] VITALS: BP 122/73
--- NOTE | 2017-05-11 18:00 | PDOC ---
Exam Óscar Demential Exam: Óscar Note: Please also refer to the separate dictated note~for this date of service dictated separately.~Patient seen individually. Discussed the patient with Nursing staff reviewed the chart.~Reviewed interim history and current functioning. Reviewed vital signs,~Labs/ Radiology~and current medications noted below. Continue current treatment with the changes noted in the dictated addendum note Assessment: Vital Signs: Vital Signs Date Time Temp Pulse Resp B/P (MAP) Pulse Ox O2 Delivery O2 Flow Rate FiO2 05/11/17 16:31 98.6 77 16 122/73 (89) 97 05/08/17 16:19 Room Air I&O Intake and Output 05/12/17 07:00 Intake Total 360 ml Balance 360 ml Intake Oral 360 ml Labs: Laboratory Tests Test 05/11/17 07:17 Glucose (Fingerstick) 97 mg/dL (70-99) Current Medications: Meds: Current Medications Acetaminophen (Tylenol) 650 mg PRN Q6HRS PRN PO PAIN / TEMP; Start 05/08/17 at 16:15 Multi-Ingredient Ointment (Analgesic [place]) 1 nicole PRN QID PRN TP MUSCLE PAIN; Start 05/08/17 at 16:15 Al Hydroxide/Mg Hydroxide (Mylanta Plus Xs) 15 ml PRN AFTMEALHC PRN PO DYSPEPSIA; Start 05/08/17 at 16:15 Magnesium Hydroxide (Milk Of Magnesia) 2,400 mg PRN QHS PRN PO CONSTIPATION; Start 05/08/17 at 16:15 Metoprolol Tartrate (Lopressor) 25 mg BID PO Last administered on 05/11/17 09: 14; Start 05/08/17 at 21:00 Potassium Chloride (KCl Oral Soln) 20 meq DAILY PO Last administered on 09:14; Start 05/09/17 at 09:00 Ketotifen Fumarate (Zaditor) 1 drop BID OU Last administered on 05/10/17 07:25 ; Start 05/08/17 at 21:00; Stop 05/10/17 at 14:28; Status DC Fluoxetine HCl (PROzac) 20 mg DAILY PO Last administered on 05/10/17 07:23; Start 05/09/17 at 09:00; Stop 05/10/17 at 19:26; Status DC Mirtazapine (Remeron) 7.5 mg QHS PO Last administered on 05/09/17 19:40; Start 05/08/17 at 21:00; Stop 05/10/17 at 19:26; Status DC Olanzapine (ZyPREXA ZYDIS) 2.5 mg PRN Q2HR PRN PO ANXIETY / AGITATION; Start 05/08/17 at 19:00 Potassium Chloride (Klor-Con) 40 meq 1X ONCE PO Last administered on 12:45; Start 05/09/17 at 12:45; Stop 05/09/17 at 12:46; Status DC Tamsulosin HCl (Flomax) 0.4 mg QHS PO Last administered on 05/10/17 20:36; Start 05/09/17 at 21:00 Trazodone HCl (Desyrel) 50 mg QHS PO Last administered on 05/09/17 19:42; Start 05/09/17 at 21:00; Stop 05/10/17 at 19:26; Status DC Trazodone HCl (Desyrel) 50 mg PRN QHS PRN PO INSOMNIA; Start 05/09/17 at 18:15 ; Stop 05/10/17 at 19:26; Status DC Vitamin D (Vitamin D3) 50,000 unit WEEKLY PO Last administered on 05/10/17 14: 39; Start 05/10/17 at 14:00 Ketotifen Fumarate (Zaditor) 1 drop BID OU Last administered on 05/11/17 09:14 ; Start 05/10/17 at 14:28 Active Scripts Active Reported Metoprolol Tartrate 25 Mg Tablet 25 Mg PO BID Potassium Chloride Oral Liquid (Potassium Chloride) 20 Meq/15 Ml Liquid 20 Meq PO DAILY Pataday (Olopatadine Hcl) 2.5 Ml Drops 1 Drop EACHEYE DAILY Diagnosis: Problems: (1) Major depressive disorder, recurrent episode (2) Impulse control disorder (3) Mild cognitive disorder (4) Anxiety disorder CHELSEA RINOCN MD May 11, 2017 18:00
[2017-05-11] MEDS: TAMSULOSIN 0.4 MG CAP.ER.24H. PO SCH (19:47)
--- NOTE | 2017-05-11 20:00 | PDOC ---
Exam Óscar Demential Exam: Óscar Note: Please also refer to the separate dictated note~for this date of service dictated separately.~Patient seen individually. Discussed the patient with Nursing staff reviewed the chart.~Reviewed interim history and current functioning. Reviewed vital signs,~Labs/ Radiology~and current medications noted below. Continue current treatment with the changes noted in the dictated addendum note Assessment: Vital Signs: Vital Signs Date Time Temp Pulse Resp B/P (MAP) Pulse Ox O2 Delivery O2 Flow Rate FiO2 05/11/17 16:31 98.6 77 16 122/73 (89) 97 05/08/17 16:19 Room Air I&O Intake and Output 05/12/17 07:00 Intake Total 660 ml Balance 660 ml Intake Oral 660 ml Labs: Laboratory Tests Test 05/11/17 07:17 Glucose (Fingerstick) 97 mg/dL (70-99) Current Medications: Meds: Current Medications Acetaminophen (Tylenol) 650 mg PRN Q6HRS PRN PO PAIN / TEMP; Start 05/08/17 at 16:15 Multi-Ingredient Ointment (Analgesic [place]) 1 nicole PRN QID PRN TP MUSCLE PAIN; Start 05/08/17 at 16:15 Al Hydroxide/Mg Hydroxide (Mylanta Plus Xs) 15 ml PRN AFTMEALHC PRN PO DYSPEPSIA; Start 05/08/17 at 16:15 Magnesium Hydroxide (Milk Of Magnesia) 2,400 mg PRN QHS PRN PO CONSTIPATION; Start 05/08/17 at 16:15 Metoprolol Tartrate (Lopressor) 25 mg BID PO Last administered on 05/11/17 09: 14; Start 05/08/17 at 21:00 Potassium Chloride (KCl Oral Soln) 20 meq DAILY PO Last administered on 09:14; Start 05/09/17 at 09:00 Ketotifen Fumarate (Zaditor) 1 drop BID OU Last administered on 05/10/17 07:25 ; Start 05/08/17 at 21:00; Stop 05/10/17 at 14:28; Status DC Fluoxetine HCl (PROzac) 20 mg DAILY PO Last administered on 05/10/17 07:23; Start 05/09/17 at 09:00; Stop 05/10/17 at 19:26; Status DC Mirtazapine (Remeron) 7.5 mg QHS PO Last administered on 05/09/17 19:40; Start 05/08/17 at 21:00; Stop 05/10/17 at 19:26; Status DC Olanzapine (ZyPREXA ZYDIS) 2.5 mg PRN Q2HR PRN PO ANXIETY / AGITATION; Start 05/08/17 at 19:00 Potassium Chloride (Klor-Con) 40 meq 1X ONCE PO Last administered on 12:45; Start 05/09/17 at 12:45; Stop 05/09/17 at 12:46; Status DC Tamsulosin HCl (Flomax) 0.4 mg QHS PO Last administered on 05/11/17 19:47; Start 05/09/17 at 21:00 Trazodone HCl (Desyrel) 50 mg QHS PO Last administered on 05/09/17 19:42; Start 05/09/17 at 21:00; Stop 05/10/17 at 19:26; Status DC Trazodone HCl (Desyrel) 50 mg PRN QHS PRN PO INSOMNIA; Start 05/09/17 at 18:15 ; Stop 05/10/17 at 19:26; Status DC Vitamin D (Vitamin D3) 50,000 unit WEEKLY PO Last administered on 05/10/17 14: 39; Start 05/10/17 at 14:00 Ketotifen Fumarate (Zaditor) 1 drop BID OU Last administered on 05/11/17 19:47 ; Start 05/10/17 at 14:28 Active Scripts Active Reported Metoprolol Tartrate 25 Mg Tablet 25 Mg PO BID Potassium Chloride Oral Liquid (Potassium Chloride) 20 Meq/15 Ml Liquid 20 Meq PO DAILY Pataday (Olopatadine Hcl) 2.5 Ml Drops 1 Drop EACHEYE DAILY Diagnosis: Problems: (1) Anxiety disorder (2) Mild cognitive disorder (3) Impulse control disorder (4) Major depressive disorder, recurrent episode CHELSEA RINCON MD May 11, 2017 20:00
[2017-05-12 06:31] VITALS: BP 137/77
[2017-05-12] MEDS ORDERED: CHOL500016 PO (08:00)
[2017-05-12] MEDS ORDERED: ACET325T9 PO (08:00)
[2017-05-12] MEDS ORDERED: KETO5DRO4 EACHEYE (08:01)
[2017-05-12] MEDS ORDERED: MAG360OR24 PO (08:03)
[2017-05-12] MEDS ORDERED: MAGN2400 PO (08:04)
[2017-05-12] MEDS ORDERED: METH29OI TP (08:04)
[2017-05-12] MEDS ORDERED: POTA10TA10 PO (08:06)
[2017-05-12] MEDS ORDERED: TAMS0.4C2 PO (08:07)
[2017-05-12] MEDS: POTASSIUM CHLORIDE 20 MEQ/15 ML ORAL LIQUID. PO SCH (08:34)
[2017-05-12] MEDS: KETOTIFEN FUMARATE 0.025% OPHT SOLUTION BOTTLE. OU SCH (08:35)
--- NOTE | 2017-05-12 09:50 | PN ---
DATE: 05/10/2017 This late entry 05/10/2017 covers elements not covered in my initial note of 05/10/2017. SUBJECTIVE: I met with the patient the evening of 05/10/2017. The previous evening, the patient appeared very sedated, had a rapid response, possibly had a vasovagal episode, received D5 fluid, did much better after this. The family, however, very concerned about his psychotropics, believed they could be contributing to the above episode and wanted discontinued. He has been somewhat obsessed with his toilet all day, clogging up the toilet very repetitive, using paper. Irritable, labile in his mood. REVIEW OF SYSTEMS: No CV, , pulmonary, eye, ENT system symptoms on review. MENTAL STATUS EXAM: Oriented to himself and situation. Speech coherent, has some latency, abstraction fair, computation impaired, language function intact, attention span short. Mood and affect somewhat anxious, labile. LABORATORY DATA: Reviewed. IMPRESSION: Unchanged from initial note. PLAN: Stop the Prozac, Remeron, along with trazodone. Observe baseline. We will make further adjustments as clinically indicated. Review of drug interactions. Risk/benefit ratio favors no further change. CHELSEA RINCON MD DR: SHAZIA/shanta JOB#: [id number] / [id number]
[2017-05-12] MEDS ORDERED: POTA20LI27 PEG (10:32)
[2017-05-12] MEDS ORDERED: OLOP2.5D EACHEYE (10:32)
[2017-05-12] MEDS ORDERED: METO25TA4 PO (10:32)
--- NOTE | 2017-05-12 11:00 | PN ---
DATE: 05/09/2017 PSYCHIATRIC PROGRESS NOTE This is a late entry for date of service 05/09/2017, covers the elements not covered in my initial note of 05/09/2017. SUBJECTIVE: I met with the patient evening of 05/09/2017. The patient slept 2-3/4 hours previous evening, remains depressed, withdrawn, and somewhat forgetful. REVIEW OF SYSTEMS: No CV, , pulmonary, eye, ENT system symptoms on review. MENTAL STATUS EXAM: Oriented to himself and situation. Speech coherent, has some latency. Abstraction fair, computation impaired, language function intact, attention span short. Mood and affect depressed, anxious. LABORATORY DATA: Reviewed. IMPRESSION: Unchanged from initial note. PLAN: Continue current psychotropics including Prozac, Remeron, Zyprexa p.r.n. Reviewed drug interactions. Risk/benefit ratio favors no further change. Add trazodone 50 mg at bedtime, may repeat x 1 p.r.n. insomnia. MAN Huan RINCON MD DR: SHAZIA/shanta JOB#: [id number] / [id number]
--- NOTE | 2017-05-12 18:43 | PDOC ---
Exam Óscar Demential Exam: Óscar Note: Please also refer to the separate dictated note~for this date of service dictated separately.~Patient seen individually. Discussed the patient with Nursing staff reviewed the chart.~Reviewed interim history and current functioning. Reviewed vital signs,~Labs/ Radiology~and current medications noted below. Continue current treatment with the changes noted in the dictated addendum note Assessment: Vital Signs: Vital Signs Date Time Temp Pulse Resp B/P (MAP) Pulse Ox O2 Delivery O2 Flow Rate FiO2 05/12/17 06:31 98.2 101 20 137/77 (97) 94 05/08/17 16:19 Room Air Labs: Laboratory Tests Test 05/12/17 07:05 Glucose (Fingerstick) 88 mg/dL (70-99) Current Medications: Meds: Current Medications Acetaminophen (Tylenol) 650 mg PRN Q6HRS PRN PO PAIN / TEMP; Start 05/08/17 at 16:15; Stop 05/12/17 at 08:39; Status DC Multi-Ingredient Ointment (Analgesic [place]) 1 nicole PRN QID PRN TP MUSCLE PAIN; Start 05/08/17 at 16:15; Stop 05/12/17 at 08:39; Status DC Al Hydroxide/Mg Hydroxide (Mylanta Plus Xs) 15 ml PRN AFTMEALHC PRN PO DYSPEPSIA; Start 05/08/17 at 16:15; Stop 05/12/17 at 08:39; Status DC Magnesium Hydroxide (Milk Of Magnesia) 2,400 mg PRN QHS PRN PO CONSTIPATION; Start 05/08/17 at 16:15; Stop 05/12/17 at 08:39; Status DC Metoprolol Tartrate (Lopressor) 25 mg BID PO Last administered on 05/11/17 09: 14; Start 05/08/17 at 21:00; Stop 05/11/17 at 23:32; Status DC Potassium Chloride (KCl Oral Soln) 20 meq DAILY PO Last administered on 08:34; Start 05/09/17 at 09:00; Stop 05/12/17 at 08:39; Status DC Ketotifen Fumarate (Zaditor) 1 drop BID OU Last administered on 05/10/17 07:25 ; Start 05/08/17 at 21:00; Stop 05/10/17 at 14:28; Status DC Fluoxetine HCl (PROzac) 20 mg DAILY PO Last administered on 05/10/17 07:23; Start 05/09/17 at 09:00; Stop 05/10/17 at 19:26; Status DC Mirtazapine (Remeron) 7.5 mg QHS PO Last administered on 05/09/17 19:40; Start 05/08/17 at 21:00; Stop 05/10/17 at 19:26; Status DC Olanzapine (ZyPREXA ZYDIS) 2.5 mg PRN Q2HR PRN PO ANXIETY / AGITATION; Start 05/08/17 at 19:00; Stop 05/12/17 at 08:39; Status DC Potassium Chloride (Klor-Con) 40 meq 1X ONCE PO Last administered on 12:45; Start 05/09/17 at 12:45; Stop 05/09/17 at 12:46; Status DC Tamsulosin HCl (Flomax) 0.4 mg QHS PO Last administered on 05/11/17 19:47; Start 05/09/17 at 21:00; Stop 05/12/17 at 08:39; Status DC Trazodone HCl (Desyrel) 50 mg QHS PO Last administered on 05/09/17 19:42; Start 05/09/17 at 21:00; Stop 05/10/17 at 19:26; Status DC Trazodone HCl (Desyrel) 50 mg PRN QHS PRN PO INSOMNIA; Start 05/09/17 at 18:15 ; Stop 05/10/17 at 19:26; Status DC Vitamin D (Vitamin D3) 50,000 unit WEEKLY PO Last administered on 05/10/17 14: 39; Start 05/10/17 at 14:00; Stop 05/12/17 at 08:39; Status DC Ketotifen Fumarate (Zaditor) 1 drop BID OU Last administered on 05/12/17 08:35 ; Start 05/10/17 at 14:28; Stop 05/12/17 at 08:39; Status DC Active Scripts Active Reported Potassium Chloride Oral Liquid (Potassium Chloride) 20 Meq/15 Ml Liquid 20 Meq PEG DAILY LAST DOSE GIVEN: DATE: TIME: NEXT DOSE DUE: DATE: TIME: Pataday (Olopatadine Hcl) 2.5 Ml Drops 1 Drop EACHEYE DAILY LAST DOSE GIVEN: DATE: TIME: NEXT DOSE DUE: DATE: TIME: Metoprolol Tartrate 25 Mg Tablet 1 Tab PO BID LAST DOSE GIVEN: DATE: TIME: NEXT DOSE DUE: DATE: TIME: Diagnosis: Problems: (1) Major depressive disorder, recurrent episode (2) Impulse control disorder (3) Mild cognitive disorder (4) Anxiety disorder CHELSEA RINCON MD May 12, 2017 18:43
--- NOTE | 2017-05-13 00:59 | PN ---
DATE: 05/11/2017 This late entry, date of service 05/11/2017, covers elements not covered in my initial note of 05/11/2017. I met with the patient individually in his room evening of 05/11/2017. He has been quite obsessive about his bowels, but no overt behavioral problems noted. Slept 5-3/4 hours previous evening. REVIEW OF SYSTEMS: No CV, , pulmonary, eye, ENT system symptoms on review. Reliability poor. MENTAL STATUS EXAM: Oriented to himself and situation. Speech coherent, has some latency. Abstraction fair, computation impaired, language function intact. Attention span short. Mood and affect somewhat withdrawn. LABORATORY DATA: Reviewed. IMPRESSION: Unchanged from initial note. PLAN: Continue psychotropics unchanged. All psychotropics have been discontinued due to family's concerns about the vasovagal episode he had. We will defer medical management to Dr. Sandoval. CHELSEA RINCON MD DR: SHAZIA/shanta JOB#: [id number] / [id number]
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
== END 2017-05-12 08:38 | disposition short-term general hospital (02) | DRG 885 ==
LOC: ER 11:24 → EDBD 11:24 → EEVIPCON 11:24 → ER 15:22 → GEROPSY 15:40
PROVIDERS: ADMIT Psychiatry & Neurology Psychiatry; ATTEND Psychiatry & Neurology Psychiatry
DX: F33.2 Major depressive disorder, recurrent severe without psychotic features (principal); E46 Unspecified protein-calorie malnutrition; I48.91 Unspecified atrial fibrillation; E11.9 Type 2 diabetes mellitus without complications; R45.851 Suicidal ideations; E87.6 Hypokalemia; E78.5 Hyperlipidemia, unspecified; N39.0 Urinary tract infection, site not specified; Z68.1 Body mass index [BMI] 19.9 or less, adult; R39.15 Urgency of urination; F43.10 Post-traumatic stress disorder, unspecified; F63.9 Impulse disorder, unspecified; G47.00 Insomnia, unspecified; R31.9 Hematuria, unspecified; I10 Essential (primary) hypertension; R91.1 Solitary pulmonary nodule; Z79.899 Other long term (current) drug therapy; Z86.79 Personal history of other diseases of the circulatory system; I25.2 Old myocardial infarction; Z88.8 Allergy status to other drugs, medicaments and biological substances
CPT/HCPCS: 36415; 70450; 71010; 80048; 80053; 80061; 80076; 80307; 81001; 82306; 82607; 82947; 83036; 83540; 83550; 83735; 84436; 84443; 84480; 84484; 85025; 85610; 86592; 86593; 87086; 93005; G0480; 99285-25; G0479

== ENCOUNTER 2017-05-12 08:55 | Inpatient (IN) | payer MEDICARE, OTHER ==
[~2017-05-12] VITALS: Ht 166.4 cm; Wt 54.0 kg
[~2017-05-12 08:55] MED LIST: ACET325T9 PO; CHOL500016 PO; KETO5DRO4 EACHEYE; MAG360OR24 PO; MAGN2400 PO; METH29OI TP; METO25TA4 PO; OLOP2.5D EACHEYE; POTA10TA10 PO; POTA20LI27 PO; TAMS0.4C2 PO
[2017-05-12 09:46] LABS: BASO % 1 % (0-3); EOS % 1 % (0-3); HEMATOCRIT 34.8 % (39.0-53.0); HEMOGLOBIN 11.7 g/dL (13.0-17.5); LYMPH % 23 % (24-48); MEAN CORPUSCULAR HEMOGLOBIN 34 pg (25-35); MEAN CORPUSCULAR HGB CONC 34 g/dL (31-37); MEAN CORPUSCULAR VOLUME 100 fL (79-100); MONO # 0.5 x10^3/uL (0.0-1.1); MONO % 11 % (0-9); NEUT # 2.6 x10^3uL (1.8-7.7); NEUT % 64 % (31-73); PLATELET COUNT 198 x10^3/uL (140-400); RED BLOOD COUNT 3.48 x10^6/uL (4.30-5.70); RED CELL DISTRIBUTION WIDTH 14.2 % (11.5-14.5); WHITE BLOOD COUNT 4.1 x10^3/uL (4.0-11.0)
[2017-05-12 09:53] LABS: ALBUMIN 2.8 g/dL (3.4-5.0); CALCIUM 8.5 mg/dL (8.5-10.1); GFR 70.8; MAGNESIUM 1.9 mg/dL (1.8-2.4); POTASSIUM 4.5 mmol/L (3.5-5.1); TOTAL BILIRUBIN 0.3 mg/dL (0.2-1.0); TOTAL PROTEIN 5.7 g/dL (6.4-8.2)
[2017-05-12] MEDS ORDERED: POTA20LI27 PEG (10:32)
[2017-05-12] MEDS ORDERED: METO25TA4 PO (10:32)
[2017-05-12] MEDS ORDERED: OLOP2.5D EACHEYE (10:32)
[2017-05-12 10:40] VITALS: BP 128/85
[2017-05-12] MEDS ORDERED: MAGNESIUM HYDROXIDE 2,400 MG/30 ML ORAL.SUSP. PO PRN (10:45)
[2017-05-12] MEDS ORDERED: MAG HYDROX/AL HYDROX/SIMETH 30 ML ORAL.SUSP PO PRN (10:45)
[2017-05-12] MEDS ORDERED: ACETAMINOPHEN 325 MG TABLET PO PRN (10:45)
[2017-05-12] MEDS ORDERED: METHYL SALICYLATE/MENTHOL TOPICAL OINTMENT 29GM TUBE. TP PRN (10:45)
--- NOTE | 2017-05-12 10:45 | EKG ---
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
[2017-05-12 15:14] VITALS: BP 111/70
--- NOTE | 2017-05-12 15:31 | PDOC2 ---
CONSULT Date of Admission DATE: 05/12/17 TIME: 15:31 Reason for Consult: Syncope Referring Physician: Dr. Jason Ochoa Chief Complaint Syncope Source: Chart review, Patient History of Present Illness 86-year-old male who is being treated on [facility] unit for major depression has been transferred to telemetry after he had an episode of syncope that appears to be vasovagal. He was apparently on the commode straining when he lost consciousness. He stated that he had on other episode of syncope around recent hemorrhoidectomy procedure. He is not a very good historian but denied any chest pain, orthopnea/PND or palpitations. Past Medical History Anxiety/depression Hypertension Paroxysmal atrial fibrillation Hyperlipidemia Diabetes mellitus type 2 Past Surgical History Hemorrhoidectomy Family History Not contributory Social History Patient is a nonsmoker and a nondrinker. 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 Current Medications Current Medications Acetaminophen (Tylenol) 650 mg PRN Q6HRS PRN PO PAIN/TEMP; Start 05/12/17 at 10 :45 Vitamin D (Vitamin D3) 50,000 unit WEEKLY PO ; Start 05/17/17 at 09:00 Ketotifen Fumarate (Zaditor) 1 drop BID OU ; Start 05/12/17 at 21:00 Al Hydroxide/Mg Hydroxide (Mylanta Plus Xs) 30 ml PRN AFTMEAL PRN PO DYSPEPSIA ; Start 05/12/17 at 10:45 Magnesium Hydroxide (Milk Of Magnesia) 2,400 mg PRN QHS PRN PO CONSTIPATION; Start 05/12/17 at 10:45 Multi-Ingredient Ointment (Analgesic [place]) 1 nicole PRN QID PRN TP MUSCLE PAIN; Start 05/12/17 at 10:45 Potassium Chloride (KCl Oral Soln) 20 meq DAILY PO ; Start 05/13/17 at 09:00 Tamsulosin HCl (Flomax) 0.4 mg QHS PO ; Start 05/12/17 at 21:00 Active Scripts Active Reported Potassium Chloride Oral Liquid (Potassium Chloride) 20 Meq/15 Ml Liquid 20 Meq PEG DAILY LAST DOSE GIVEN: DATE: TIME: NEXT DOSE DUE: DATE: TIME: Pataday (Olopatadine Hcl) 2.5 Ml Drops 1 Drop EACHEYE DAILY LAST DOSE GIVEN: DATE: TIME: NEXT DOSE DUE: DATE: TIME: Metoprolol Tartrate 25 Mg Tablet 1 Tab PO BID LAST DOSE GIVEN: DATE: TIME: NEXT DOSE DUE: DATE: TIME: Allergies: Coded Allergies: bimatoprost (Verified Allergy, Intermediate, 05/09/17) lisinopril (Verified Allergy, Intermediate, 05/09/17) meclofenamic acid (Verified Allergy, Intermediate, 05/09/17) PSYCHOLOGICAL ROS: No: Hallucinations Eyes: No: Loss of vision HEENT: No: Epistaxis ENDOCRINE: No: Palpitations Cardiovascular: No: Chest Pain Gastrointestinal: No: Vomiting, Diarrhea Genitourinary: No: [place] Neurological: YES: Other (syncope), No: Seizures Skin: No: Rash General: Alert, No acute distress HEENT: Atraumatic, PERRLA Lungs: Clear to auscultation Heart: Other (heart rate slightly irregular) Abdomen: Soft Extremities: No edema VITALS Vital Signs Date Time Temp Pulse Resp B/P (MAP) Pulse Ox O2 Delivery O2 Flow Rate FiO2 05/12/17 15:14 98.0 83 20 111/70 (84) 98 Room Air Labs Laboratory Tests Test 05/12/17 09:33 White Blood Count 4.1 x10^3/uL (4.0-11.0) Red Blood Count 3.48 x10^6/uL (4.30-5.70) Hemoglobin 11.7 g/dL (13.0-17.5) Hematocrit 34.8 % (39.0-53.0) Mean Corpuscular Volume 100 fL (79-100) Mean Corpuscular Hemoglobin 34 pg (25-35) Mean Corpuscular Hemoglobin Concent 34 g/dL (31-37) Red Cell Distribution Width 14.2 % (11.5-14.5) Platelet Count 198 x10^3/uL (140-400) Neutrophils (%) (Auto) 64 % (31-73) Lymphocytes (%) (Auto) 23 % (24-48) Monocytes (%) (Auto) 11 % (0-9) Eosinophils (%) (Auto) 1 % (0-3) Basophils (%) (Auto) 1 % (0-3) Neutrophils # (Auto) 2.6 x10^3uL (1.8-7.7) Lymphocytes # (Auto) 1.0 x10^3/uL (1.0-4.8) Monocytes # (Auto) 0.5 x10^3/uL (0.0-1.1) Eosinophils # (Auto) 0.0 x10^3/uL (0.0-0.7) Basophils # (Auto) 0.0 x10^3/uL (0.0-0.2) Sodium Level 138 mmol/L (136-145) Potassium Level 4.5 mmol/L (3.5-5.1) Chloride Level 102 mmol/L (98-107) Carbon Dioxide Level 30 mmol/L (21-32) Anion Gap 6 (6-14) Blood Urea Nitrogen 11 mg/dL (8-26) Creatinine 1.0 mg/dL (0.7-1.3) Estimated GFR (Cockcroft-Gault) 70.8 BUN/Creatinine Ratio 11 (6-20) Glucose Level 136 mg/dL (70-99) Calcium Level 8.5 mg/dL (8.5-10.1) Magnesium Level 1.9 mg/dL (1.8-2.4) Total Bilirubin 0.3 mg/dL (0.2-1.0) Aspartate Amino Transf (AST/SGOT) 19 U/L (15-37) Alanine Aminotransferase (ALT/SGPT) 27 U/L (16-63) Alkaline Phosphatase 49 U/L (46-116) Total Protein 5.7 g/dL (6.4-8.2) Albumin 2.8 g/dL (3.4-5.0) Albumin/Globulin Ratio 1.0 (1.0-1.7) Assessment/Plan 1. Syncope most probably vasovagal. Telemetry did not show any significant bradycardia or pauses. Check 2-D echo to rule out any structural abnormalities. We will consider event monitor on discharge. 2. Paroxysmal atrial fibrillation. Patient was thought to be in atrial fibrillation upon transfer to telemetry. However, review of telemetry showed sinus rhythm with frequent PACs and a few brief runs of atrial tachycardia without any significant episodes of atrial fibrillation. Agree with resuming metoprolol. 3. Anxiety/depression/psychosis: Treat per primary team Thank you for your consultation Problems: CHASE MALDONADO MD May 12, 2017 15:31
[2017-05-12 15:37] LABS: BASO % 1 % (0-3); EOS # 0.1 x10^3/uL (0.0-0.7); EOS % 2 % (0-3); HEMATOCRIT 31.8 % (39.0-53.0); LYMPH # 1.5 x10^3/uL (1.0-4.8); LYMPH % 32 % (24-48); MEAN CORPUSCULAR HEMOGLOBIN 34 pg (25-35); MEAN CORPUSCULAR HGB CONC 35 g/dL (31-37); MEAN CORPUSCULAR VOLUME 98 fL (79-100); MONO # 0.6 x10^3/uL (0.0-1.1); MONO % 13 % (0-9); NEUT # 2.4 x10^3uL (1.8-7.7); NEUT % 53 % (31-73); PLATELET COUNT 184 x10^3/uL (140-400); RED BLOOD COUNT 3.24 x10^6/uL (4.30-5.70); RED CELL DISTRIBUTION WIDTH 14.1 % (11.5-14.5); WHITE BLOOD COUNT 4.6 x10^3/uL (4.0-11.0)
[2017-05-12 15:42] LABS: ALBUMIN 2.7 g/dL (3.4-5.0); CALCIUM 8.3 mg/dL (8.5-10.1); CREATININE 0.8 mg/dL (0.7-1.3); GFR 91.7; POTASSIUM 3.8 mmol/L (3.5-5.1); TOTAL BILIRUBIN 0.3 mg/dL (0.2-1.0); TOTAL PROTEIN 5.4 g/dL (6.4-8.2)
[2017-05-12] MEDS ORDERED: CONTRAST GIVEN MC PRN (17:45)
[2017-05-12] MEDS ORDERED: IOHEXOL 300 MG/ML 75 ML VIAL. IV ONE ×2 (17:45→18:00)
--- NOTE | 2017-05-12 19:27 | HP ---
ADMIT DATE: 05/12/2017 The patient is an 86-year-old male patient who was transferred from [facility] on account of two episodes of vasovagal attack with syncope when he is sitting in the toilet and straining. According to the nursing staff, he apparently lost consciousness and they have to do sternal rubs before he turned around and responds. He was also on metoprolol that was not disconnected and he has recent hemorrhoidectomy and he is obviously having severe pain whenever he strains. He is also in atrial fibrillation and basically was transferred down to [address] [place] [address], on telemetry bed and to consult the cardiology team for further evaluation of his syncopal episode. PAST MEDICAL HISTORY: Significant for anxiety disorder, major depressive disorder, hemorrhoids, status post hemorrhoidectomy; hypertension, atrial fibrillation, myocardial infarction, hyperlipidemia, type 2 diabetes, and apparently recent hospitalization for dehydration. PAST SURGICAL HISTORY: Significant for hemorrhoidectomy. HISTORY OF PRESENT ILLNESS: The patient is an 86-year-old male who was referred from [facility]. He lives at home with his and apparently has not been eating, has been threatening to harm himself, has been obsessive and anxious about the culture resistive to female authority, feels helpless and without control and was admitted to [facility] for inpatient psychiatric stabilization. SOCIAL HISTORY: The patient was in the . He states he was exposed to atomic bomb test in 1956, never smoked, does not drink alcohol. Lives at home with his . 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 REVIEW OF SYSTEMS: The patient was lethargic and I could not get any useful information from him. ALLERGIES: He is allergic to BIMATOPROST, LISINOPRIL, MECLOFENAMIC ACID. MEDICATIONS: Include acetaminophen 650 mg every 6 hours, diclofenac, cholecalciferol, vitamin D 50,000 units p.o. weekly. He is also on Zaditor 1 drop to both eyes twice a day, Mylanta 30 mL after meals, milk of magnesia 30 mL p.o. daily p.r.n. for constipation, potassium chloride 20 mEq once a day, and tamsulosin 0.4 mg at bedtime. PHYSICAL EXAMINATION: GENERAL: When I saw him this afternoon, he was resting slightly, propped up in bed, in no apparent respiratory distress. He was pale, but not jaundiced, cyanosis or thyromegaly. No jugular venous distention. No limb edema. VITAL SIGNS: His heart rate was 73, blood pressure was 128/85, temperature was 98.1, respiratory rate 20, and oxygen saturation was 99%. HEAD, EYES, EARS, NOSE, AND THROAT: Normocephalic, atraumatic. NECK: Supple. HEART: Showed normal first and second heart sounds with no gallop, rub or murmur. CHEST: Clear to auscultation. No crepitation or rhonchi. ABDOMEN: Distended, soft, and nontender. No guarding or rigidity. No organomegaly. All hernial orifices intact. Bowel sounds normal. NEUROLOGIC: He was very lethargic, but arousable. All his cranial nerves are intact. He seemed to be able to move all his extremities without difficulty, although he is mostly bed bound. LABORATORY DATA: As of this morning showed a white cell count 4100, hemoglobin 11.7, hematocrit 34.8, MCV 100, platelet count of 198,000 with a manual differential showed 64% polymorphs, 3% lymphocytes, 11% monocytes. Serum sodium 138, potassium 4.5, chloride 102, bicarbonate 30, anion gap of 6, BUN 11, creatinine 1, estimated GFR was 17 mL per minute. His glucose was 136, calcium was 8.5, magnesium was 1.9. Total bilirubin, AST, ALT, alkaline phosphatase were normal. Total protein 5.7, albumin 2.8. IMPRESSION: In summary, this is an 86-year-old male patient who was originally admitted to [facility] on 05/08/2017, on the account of dangerous out of control behavior, very confused with questions whether he is able to make voluntary decision. Psychiatric consult was held in the Emergency Room with a tele-psychiatry service recommending inpatient hospitalization, the patient's ability to sign in for himself. Apparently, he has worsening symptoms of depression, suicidal statement, increasing confusion. He has been increasingly irritable, forgetful, and decreased restorative sleep, decreased appetite with weight loss. The patient's son and daughter brought him into the Emergency Room secondary to suicidal ideation. The patient has begun talking about suicide and shooting himself and given the recent changes, neurovegetative symptoms and mood symptoms, family became very concerned and was brought to the Emergency Room where he was evaluated and admitted to [facility] for inpatient psychiatric stabilization. While at that unit, he had apparently two episodes of syncope. This seemed to be almost like micturition syncope with vasovagal attack. The patient lost consciousness. He was also on beta-blockers that was eventually discontinued and was admitted to [address] [place] [address] for further evaluation. He will be on telemetry bed. We will arrange for him to have bilateral carotid Doppler ultrasound and echocardiogram. We will consult the patient safety attendant. We will check his orthostatics and decide on further management accordingly. His lab work showed no evidence of leukocytosis. There is no evidence of dehydration. His serum sodium, potassium, magnesium, and calcium were all within normal range. CHANTEL DELGADO MD DR: GUIDO/shanta JOB#: [id number] / [id number]
--- NOTE | 2017-05-12 19:38 | RAD ---
CTA scan of the Chest with Contrast (Pulmonary Embolism protocol) 05/12/2017 Clinical History: Chest pain with elevated d-dimer. Technique: After the intravenous administration of 75 cc of Omnipaque 300, contiguous, 0.625 mm axial sections were obtained through the chest. 3 mm axial and 3D MIP coronal and sagittal reconstructed images were obtained. One or more of the following individualized dose reduction techniques were utilized for this study: 1. Automated exposure control. 2. Adjustment of the mA and/or kV according to patient size. 3. Use of iterative reconstruction technique. Findings: No filling defect is seen within the major branches of either pulmonary artery. There is no CT evidence of pulmonary embolism. Scattered atherosclerotic plaque formation seen involving the thoracic aorta and its branches. The thoracic aorta is tortuous but tapers normally. The heart is mildly enlarged. Minimal dependent subsegmental atelectasis is seen involving both lungs. Calcified right pleural plaque is noted. No area of consolidation is seen. No pleural effusion or pneumothorax is seen. Impression: There is no CT evidence of pulmonary embolism. Electronically signed by: True Curry MD (05/12/2017 7:34 PM) [facility]
[2017-05-12 19:57] VITALS: BP 121/73
[2017-05-12] MEDS: KETOTIFEN FUMARATE 0.025% OPHT SOLUTION BOTTLE. OU SCH (21:25)
[2017-05-12] MEDS: ENOXAPARIN ** NOTE DOSE ** SYRINGE SQ SCH (21:26)
[2017-05-12] MEDS: TAMSULOSIN 0.4 MG CAP.ER.24H. PO SCH (21:26)
[2017-05-13] VITALS (10 sets, daily range): BP systolic 101–131; BP diastolic 59–86
[2017-05-13 07:05] LABS: BASO % 1 % (0-3); EOS # 0.1 x10^3/uL (0.0-0.7); EOS % 1 % (0-3); HEMATOCRIT 34.3 % (39.0-53.0); LYMPH # 1.5 x10^3/uL (1.0-4.8); LYMPH % 36 % (24-48); MEAN CORPUSCULAR HEMOGLOBIN 34 pg (25-35); MEAN CORPUSCULAR HGB CONC 35 g/dL (31-37); MEAN CORPUSCULAR VOLUME 98 fL (79-100); MONO # 0.5 x10^3/uL (0.0-1.1); MONO % 12 % (0-9); NEUT # 2.1 x10^3uL (1.8-7.7); NEUT % 50 % (31-73); PLATELET COUNT 176 x10^3/uL (140-400); RED BLOOD COUNT 3.51 x10^6/uL (4.30-5.70); WHITE BLOOD COUNT 4.2 x10^3/uL (4.0-11.0)
[2017-05-13 07:19] LABS: ALBUMIN 2.8 g/dL (3.4-5.0); CALCIUM 8.3 mg/dL (8.5-10.1); CREATININE 0.7 mg/dL (0.7-1.3); GFR 106.9; POTASSIUM 3.9 mmol/L (3.5-5.1); TOTAL BILIRUBIN 0.4 mg/dL (0.2-1.0); TOTAL PROTEIN 5.6 g/dL (6.4-8.2)
--- NOTE | 2017-05-13 07:42 | CARD ---
APPROVED REPORT EXAM: Two-dimensional and M-mode echocardiogram with Doppler and color Doppler. Other Information Quality : GoodHR: 72bpm Rhythm : NSR INDICATION Syncope 2D DIMENSIONS Left Atrium(2D)3.0 (1.6-4.0cm)IVSd1.0 (0.7-1.1cm) Aortic Root(2D)2.9 (2.0-3.7cm)LVDd3.1 (3.9-5.9cm) LVOT Diameter2.3 (1.8-2.4cm)PWd1.0 (0.7-1.1cm) LA Bbuprm93 (18-58mL)LVDs2.3 (2.5-4.0cm) FS (%) 24.4 %SV18.9 ml Aortic Valve AoV Peak Bruce.96.1cm/sAoV VTI19.8cm AO Peak GR.3.7mmHgLVOT Peak Bruce.73.2cm/s LVOT VTI 15.34cmAO Mean GR.2mmHg MAIKEL (VMAX)3.32ya7BES (VTI)3.11cm2 AI P 1/2 [id number] Mitral Valve MV E Usnipiik21.6cm/sMV E Peak Gr.2mmHg MV DECEL [id number] A Uwhmcvlu31.1cm/s MV E Mean Gr.1mmHgE/A Ratio0.9 MV A [id number] Tricuspid Valve TR P. Osdwbygz088uf/sTR Peak Gr.33mmHg LEFT VENTRICLE The left ventricle is normal size. There is normal left ventricular wall thickness. Left ventricle ej ection fraction is normal. The Ejection Fraction is 55%. There is normal LV segmental wall motion. Tr ansmitral Doppler flow pattern is Grade I-abnormal relaxation pattern. No left ventricle thrombus not ed on this study. There is no ventricular septal defect visualized. There is no left ventricular aneu rysm. There is no mass noted in the left ventricle. RIGHT VENTRICLE The right ventricle is normal size. There is normal right ventricular wall thickness. The right ventr icular systolic function is normal. ATRIA The left atrium size is normal. The right atrium size is normal. The interatrial septum is intact wit h no evidence for an atrial septal defect or patent foramen ovale as noted on 2-D or Doppler imaging. AORTIC VALVE The aortic valve is normal in structure and function. Doppler and Color Flow revealed mild aortic reg urgitation. There is no significant aortic valvular stenosis. There is no aortic valvular vegetation. MITRAL VALVE The mitral valve is normal in structure and function. There is no evidence of mitral valve prolapse. There is no mitral valve stenosis. Doppler and Color-flow revealed mild mitral regurgitation. TRICUSPID VALVE The tricuspid valve is normal in structure and function. Doppler and Color Flow revealed mild to mode rate tricuspid regurgitation. The PA pressure was estimated at 38 mmHg. There is no tricuspid valve p rolapse or vegetation. There is no tricuspid valve stenosis. PULMONIC VALVE The pulmonary valve is normal in structure and function. Doppler and Color Flow revealed no pulmonic valvular regurgitation. There is no pulmonic valvular stenosis. GREAT VESSELS The aortic root is normal in size. The ascending aorta is normal in size. The IVC is normal in size a nd collapses >50% with inspiration. PERICARDIAL EFFUSION There is no pleural effusion. There is no evidence of significant pericardial effusion. Critical Notification Critical Value: No <Conclusion> Left ventricle ejection fraction is normal. The Ejection Fraction is 55%. There is normal LV segmental wall motion. Mild aortic regurgitation. Mild mitral regurgitation. Mild to moderate tricuspid regurgitation. The PA pressure was estimated at 38 mmHg. There is no evidence of significant pericardial effusion.
--- NOTE | 2017-05-13 07:58 | RAD ---
EXAM: Carotid Doppler sonogram. HISTORY: Recurring syncope. TECHNIQUE: [place] scale and color Doppler sonographic evaluation of the neck with spectral waveform analysis was performed and static images are submitted for review. FINDINGS: RIGHT: The peak systolic velocity within the common carotid artery is 46 cm/sec. The peak systolic velocity within the internal carotid artery is 54 cm/sec and the end diastolic velocity within the internal carotid artery is 14 cm/sec. The ICA/CCA ratio is 1.2. Grayscale images demonstrate no significant plaquing. LEFT: The peak systolic velocity within the common carotid artery is 51 cm/sec. The peak systolic velocity within the internal carotid artery is 63 cm/sec and the end diastolic velocity within the internal carotid artery is 15 cm/sec. The ICA/CCA ratio is 1.2. Grayscale images demonstrate no significant plaquing. There is antegrade flow within both vertebral arteries. IMPRESSION: 1. No evidence of hemodynamically significant stenosis. PQRS Compliance Statement - Stenosis calculations for CT, MR and conventional angiography are based upon measurement of the distal ICA diameter in accordance with the NASCET methodology. Stenosis calculations for carotid ultrasound studies are derived from validated velocity criteria which are known to correlate with the NASCET methodology.
[2017-05-13] MEDS: KETOTIFEN FUMARATE 0.025% OPHT SOLUTION BOTTLE. OU SCH ×2 (08:12→21:12)
[2017-05-13] MEDS: POTASSIUM CHLORIDE 20 MEQ/15 ML ORAL LIQUID. PO SCH (08:12)
[2017-05-13] MEDS: ENOXAPARIN ** NOTE DOSE ** SYRINGE SQ SCH ×2 (08:13→21:12)
[2017-05-13] MEDS ORDERED: ADENOSINE 6 MG/2 ML VIAL IV ONE (08:28)
[2017-05-13] MEDS ORDERED: METOPROLOL TART IMMED RELEASE 25 MG TABLET PO ONE (09:00)
--- NOTE | 2017-05-13 09:02 | PDOC ---
MATTHEW RUCKER APRN 05/13/17 0902: PROGRESS NOTES Assessment 1. SVT - V rates 180-200. Resume rate control medications. 2. syncope - ? secondary to #1. 3. PAF - remains sinus rhythm with frequent PACs and recurrent short episodes of SVT lasting up to ~20 seconds. 4. Problems: Subjective Mr Butt was up on toilet when he apparently had onset of SVT with rates up to 200 bpm. He was assisted back to bed and vagal maneuvers attempted by nursing. SVT resolved spontaneously prior to any medications. Currently in sinus tachycardia with rates of about 110 bpm and frequent PACs. He was reported as asymptomatic by nursing staff during the episode and he currently denies any symptoms. He complains of general fatigue and malaise. Objective Vital Signs Date Time Temp Pulse Resp B/P (MAP) Pulse Ox O2 Delivery O2 Flow Rate FiO2 05/13/17 05:04 98.4 90 17 120/71 (87) 98 Room Air Abdomen: Normal bowel sounds, Soft, No tenderness Heart: Other (irregular rate, normal S1/S2, no S3/S4, no significant murmurs, clicks or rubs) General: Alert, Cooperative, No acute distress HEENT: Atraumatic, EOMI Lungs: Clear to auscultation, Normal air movement Neuro: Normal speech Psych/Mental Status: Mental status NL, Other (flat affect) Review of Relevant I have reviewed the following items abdulaziz (where applicable) has been applied. Labs Laboratory Tests Test 05/12/17 09:33 05/12/17 13:45 05/12/17 15:09 05/13/17 06:38 White Blood Count 4.1 x10^3/uL (4.0-11.0) 4.6 x10^3/uL (4.0-11.0) 4.2 x10^3/uL (4.0-11.0) Red Blood Count 3.48 x10^6/uL (4.30-5.70) 3.24 x10^6/uL (4.30-5.70) 3.51 x10^6/uL (4.30-5.70) Hemoglobin 11.7 g/dL (13.0-17.5) 11.0 g/dL (13.0-17.5) 12.0 g/dL (13.0-17.5) Hematocrit 34.8 % (39.0-53.0) 31.8 % (39.0-53.0) 34.3 % (39.0-53.0) Mean Corpuscular Volume 100 fL (79-100) 98 fL (79-100) 98 fL (79-100) Mean Corpuscular Hemoglobin 34 pg (25-35) 34 pg (25-35) 34 pg (25-35) Mean Corpuscular Hemoglobin Concent 34 g/dL (31-37) 35 g/dL (31-37) 35 g/dL (31-37) Red Cell Distribution Width 14.2 % (11.5-14.5) 14.1 % (11.5-14.5) 14.0 % (11.5-14.5) Platelet Count 198 x10^3/uL (140-400) 184 x10^3/uL (140-400) 176 x10^3/uL (140-400) Neutrophils (%) (Auto) 64 % (31-73) 53 % (31-73) 50 % (31-73) Lymphocytes (%) (Auto) 23 % (24-48) 32 % (24-48) 36 % (24-48) Monocytes (%) (Auto) 11 % (0-9) 13 % (0-9) 12 % (0-9) Eosinophils (%) (Auto) 1 % (0-3) 2 % (0-3) 1 % (0-3) Basophils (%) (Auto) 1 % (0-3) 1 % (0-3) 1 % (0-3) Neutrophils # (Auto) 2.6 x10^3uL (1.8-7.7) 2.4 x10^3uL (1.8-7.7) 2.1 x10^3uL (1.8-7.7) Lymphocytes # (Auto) 1.0 x10^3/uL (1.0-4.8) 1.5 x10^3/uL (1.0-4.8) 1.5 x10^3/uL (1.0-4.8) Monocytes # (Auto) 0.5 x10^3/uL (0.0-1.1) 0.6 x10^3/uL (0.0-1.1) 0.5 x10^3/uL (0.0-1.1) Eosinophils # (Auto) 0.0 x10^3/uL (0.0-0.7) 0.1 x10^3/uL (0.0-0.7) 0.1 x10^3/uL (0.0-0.7) Basophils # (Auto) 0.0 x10^3/uL (0.0-0.2) 0.0 x10^3/uL (0.0-0.2) 0.0 x10^3/uL (0.0-0.2) Sodium Level 138 mmol/L (136-145) 138 mmol/L (136-145) 136 mmol/L (136-145) Potassium Level 4.5 mmol/L (3.5-5.1) 3.8 mmol/L (3.5-5.1) 3.9 mmol/L (3.5-5.1) Chloride Level 102 mmol/L (98-107) 103 mmol/L (98-107) 102 mmol/L (98-107) Carbon Dioxide Level 30 mmol/L (21-32) 26 mmol/L (21-32) 27 mmol/L (21-32) Anion Gap 6 (6-14) 9 (6-14) 7 (6-14) Blood Urea Nitrogen 11 mg/dL (8-26) 11 mg/dL (8-26) 8 mg/dL (8-26) Creatinine 1.0 mg/dL (0.7-1.3) 0.8 mg/dL (0.7-1.3) 0.7 mg/dL (0.7-1.3) Estimated GFR (Cockcroft-Gault) 70.8 91.7 106.9 BUN/Creatinine Ratio 11 (6-20) 14 (6-20) 11 (6-20) Glucose Level 136 mg/dL (70-99) 137 mg/dL (70-99) 91 mg/dL (70-99) Calcium Level 8.5 mg/dL (8.5-10.1) 8.3 mg/dL (8.5-10.1) 8.3 mg/dL (8.5-10.1) Magnesium Level 1.9 mg/dL (1.8-2.4) Total Bilirubin 0.3 mg/dL (0.2-1.0) 0.3 mg/dL (0.2-1.0) 0.4 mg/dL (0.2-1.0) Aspartate Amino Transf (AST/SGOT) 19 U/L (15-37) 19 U/L (15-37) 21 U/L (15-37) Alanine Aminotransferase (ALT/SGPT) 27 U/L (16-63) 26 U/L (16-63) 26 U/L (16-63) Alkaline Phosphatase 49 U/L (46-116) 45 U/L (46-116) 48 U/L (46-116) Total Protein 5.7 g/dL (6.4-8.2) 5.4 g/dL (6.4-8.2) 5.6 g/dL (6.4-8.2) Albumin 2.8 g/dL (3.4-5.0) 2.7 g/dL (3.4-5.0) 2.8 g/dL (3.4-5.0) Albumin/Globulin Ratio 1.0 (1.0-1.7) 1.0 (1.0-1.7) 1.0 (1.0-1.7) Nasal Screen MRSA (PCR) Negative (Negative) D-Dimer (Kailyn) 5.33 mg/L (0.00-0.50) Troponin I Quantitative < 0.017 ng/mL (0-0.055) Medications Current Medications Acetaminophen (Tylenol) 650 mg PRN Q6HRS PRN PO PAIN/TEMP; Start 05/12/17 at 10 :45 Vitamin D (Vitamin D3) 50,000 unit WEEKLY PO ; Start 05/17/17 at 09:00 Ketotifen Fumarate (Zaditor) 1 drop BID OU Last administered on 05/13/17t 08:12 ; Start 05/12/17 at 21:00 Al Hydroxide/Mg Hydroxide (Mylanta Plus Xs) 30 ml PRN AFTMEAL PRN PO DYSPEPSIA ; Start 05/12/17 at 10:45 Magnesium Hydroxide (Milk Of Magnesia) 2,400 mg PRN QHS PRN PO CONSTIPATION; Start 05/12/17 at 10:45 Multi-Ingredient Ointment (Analgesic [place]) 1 nicole PRN QID PRN TP MUSCLE PAIN; Start 05/12/17 at 10:45 Potassium Chloride (KCl Oral Soln) 20 meq DAILY PO Last administered on 08:12; Start 05/13/17 at 09:00 Tamsulosin HCl (Flomax) 0.4 mg QHS PO Last administered on 05/12/17 21:26; Start 05/12/17 at 21:00 Iohexol (Omnipaque 300 Mg/ml) 75 ml 1X ONCE IV Last administered on 05/12/17 18:19; Start 05/12/17 at 17:45; Stop 05/12/17 at 17:46; Status DC Info (Do NOT chart on this entry -- for MONITORING) 1 each PRN DAILY PRN MC SEE COMMENTS; Start 05/12/17 at 17:45; Stop 05/14/17 at 17:44 Enoxaparin Sodium (Lovenox 60mg Syringe) 50 mg BID SQ Last administered on 05/13 08:13; Start 05/12/17 at 21:00 Iohexol (Omnipaque 300 Mg/ml) 75 ml 1X ONCE IV ; Start 05/12/17 at 18:00; Stop 05/12/17 at 18:03; Status DC Adenosine (Adenocard) 6 mg STK-MED ONCE IV ; Start 05/13/17 at 08:28; Stop 05/13 at 08:29; Status DC Active Scripts Active Reported Potassium Chloride Oral Liquid (Potassium Chloride) 20 Meq/15 Ml Liquid 20 Meq PEG DAILY LAST DOSE GIVEN: DATE: TIME: NEXT DOSE DUE: DATE: TIME: Pataday (Olopatadine Hcl) 2.5 Ml Drops 1 Drop EACHEYE DAILY LAST DOSE GIVEN: DATE: TIME: NEXT DOSE DUE: DATE: TIME: Metoprolol Tartrate 25 Mg Tablet 1 Tab PO BID LAST DOSE GIVEN: DATE: TIME: NEXT DOSE DUE: DATE: TIME: Vitals/I & O Vital Sign - Last 24 Hours 05/12/17 05/12/17 05/12/17 05/12/17 10:40 12:13 15:14 19:57 Temp 98.1 98.0 98.3 Pulse 73 83 63 Resp 20 20 18 B/P (MAP) 128/85 (99) 111/70 (84) 121/73 (89) Pulse Ox 99 98 98 O2 Delivery Room Air Room Air Room Air Room Air 05/12/17 05/13/17 05/13/17 20:00 00:01 05:04 Temp 98.4 Pulse 81 90 Resp 16 17 B/P (MAP) 131/86 (101) 120/71 (87) Pulse Ox 99 98 O2 Delivery Room Air Room Air Room Air CHASE MALDONADO MD 05/13/17 1458: PROGRESS NOTES Assessment Patient seen and examined. Agree with [employer]'s assessment and plan. Episode of SVT noted. Presently in sinus rhythm with PACs. Start flecainide for rhythm maintenance. 2-D echo showed normal LV systolic function. Problems: MATTHEW RUCKER APRN May 13, 2017 09:02 CHASE MALDONADO MD May 13, 2017 14:58
[2017-05-13] MEDS: METOPROLOL TART IMMED RELEASE 25 MG TABLET PO SCH ×3 (12:07→23:57)
[2017-05-13] MEDS: traMADol 50 MG TABLET PO PRN (18:42)
[2017-05-13] MEDS: TAMSULOSIN 0.4 MG CAP.ER.24H. PO SCH (21:11)
[2017-05-13] MEDS: DOCUSATE SODIUM 100 MG CAPSULE PO SCH (21:11)
[2017-05-13] MEDS: FLECAINIDE 50 MG TABLET. PO SCH (21:12)
--- NOTE | 2017-05-13 21:37 | PDOC ---
Exam Óscar Demential Exam: Óscar Note: Please also refer to the separate dictated note~for this date of service dictated separately.~Patient seen individually. Discussed the patient with Nursing staff reviewed the chart.~Reviewed interim history and current functioning. Reviewed vital signs,~Labs/ Radiology~and current medications noted below. Continue current treatment with the changes noted in the dictated addendum note Assessment: Vital Signs: Vital Signs Date Time Temp Pulse Resp B/P (MAP) Pulse Ox O2 Delivery O2 Flow Rate FiO2 05/13/17 21:12 89 102/66 05/13/17 20:09 98.1 20 93 Room Air I&O Intake and Output 05/14/17 07:00 Intake Total 360 ml Output Total 1 ml Balance 359 ml Intake Oral 360 ml Output Stool Total 1 ml # Voids 8 Labs: Laboratory Tests Test 05/13/17 06:30 05/13/17 06:38 Magnesium Level 1.7 mg/dL (1.8-2.4) L White Blood Count 4.2 x10^3/uL (4.0-11.0) Red Blood Count 3.51 x10^6/uL (4.30-5.70) L Hemoglobin 12.0 g/dL (13.0-17.5) L Hematocrit 34.3 % (39.0-53.0) L Mean Corpuscular Volume 98 fL (79-100) Mean Corpuscular Hemoglobin 34 pg (25-35) Mean Corpuscular Hemoglobin Concent 35 g/dL (31-37) Red Cell Distribution Width 14.0 % (11.5-14.5) Platelet Count 176 x10^3/uL (140-400) Neutrophils (%) (Auto) 50 % (31-73) Lymphocytes (%) (Auto) 36 % (24-48) Monocytes (%) (Auto) 12 % (0-9) H Eosinophils (%) (Auto) 1 % (0-3) Basophils (%) (Auto) 1 % (0-3) Neutrophils # (Auto) 2.1 x10^3uL (1.8-7.7) Lymphocytes # (Auto) 1.5 x10^3/uL (1.0-4.8) Monocytes # (Auto) 0.5 x10^3/uL (0.0-1.1) Eosinophils # (Auto) 0.1 x10^3/uL (0.0-0.7) Basophils # (Auto) 0.0 x10^3/uL (0.0-0.2) Sodium Level 136 mmol/L (136-145) Potassium Level 3.9 mmol/L (3.5-5.1) Chloride Level 102 mmol/L (98-107) Carbon Dioxide Level 27 mmol/L (21-32) Anion Gap 7 (6-14) Blood Urea Nitrogen 8 mg/dL (8-26) Creatinine 0.7 mg/dL (0.7-1.3) Estimated GFR (Cockcroft-Gault) 106.9 BUN/Creatinine Ratio 11 (6-20) Glucose Level 91 mg/dL (70-99) Calcium Level 8.3 mg/dL (8.5-10.1) L Total Bilirubin 0.4 mg/dL (0.2-1.0) Aspartate Amino Transferase (AST) 21 U/L (15-37) Alanine Aminotransferase (ALT) 26 U/L (16-63) Alkaline Phosphatase 48 U/L (46-116) Total Protein 5.6 g/dL (6.4-8.2) L Albumin 2.8 g/dL (3.4-5.0) L Albumin/Globulin Ratio 1.0 (1.0-1.7) Current Medications: Meds: Current Medications Acetaminophen (Tylenol) 650 mg PRN Q6HRS PRN PO PAIN/TEMP Last administered on 05/13/17 13:22; Start 05/12/17 at 10:45 Vitamin D (Vitamin D3) 50,000 unit WEEKLY PO ; Start 05/17/17 at 09:00 Ketotifen Fumarate (Zaditor) 1 drop BID OU Last administered on 05/13/17 21:12 ; Start 05/12/17 at 21:00 Al Hydroxide/Mg Hydroxide (Mylanta Plus Xs) 30 ml PRN AFTMEAL PRN PO DYSPEPSIA ; Start 05/12/17 at 10:45 Magnesium Hydroxide (Milk Of Magnesia) 2,400 mg PRN QHS PRN PO CONSTIPATION; Start 05/12/17 at 10:45 Multi-Ingredient Ointment (Analgesic [place]) 1 nicole PRN QID PRN TP MUSCLE PAIN; Start 05/12/17 at 10:45 Potassium Chloride (KCl Oral Soln) 20 meq DAILY PO Last administered on 08:12; Start 05/13/17 at 09:00 Tamsulosin HCl (Flomax) 0.4 mg QHS PO Last administered on 05/13/17 21:11; Start 05/12/17 at 21:00 Iohexol (Omnipaque 300 Mg/ml) 75 ml 1X ONCE IV Last administered on 05/12/17 18:19; Start 05/12/17 at 17:45; Stop 05/12/17 at 17:46; Status DC Info (Do NOT chart on this entry -- for MONITORING) 1 each PRN DAILY PRN MC SEE COMMENTS; Start 05/12/17 at 17:45; Stop 05/14/17 at 17:44 Enoxaparin Sodium (Lovenox 60mg Syringe) 50 mg BID SQ Last administered on 05/13 21:12; Start 05/12/17 at 21:00 Iohexol (Omnipaque 300 Mg/ml) 75 ml 1X ONCE IV ; Start 05/12/17 at 18:00; Stop 05/12/17 at 18:03; Status DC Adenosine (Adenocard) 6 mg STK-MED ONCE IV ; Start 05/13/17 at 08:28; Stop 05/13 at 08:29; Status DC Metoprolol Tartrate (Lopressor) 12.5 mg Q6HRS PO Last administered on 18:43; Start 05/13/17 at 12:00 Metoprolol Tartrate (Lopressor) 12.5 mg 1X ONCE PO Last administered on 09:18; Start 05/13/17 at 09:00; Stop 05/13/17 at 09:03; Status DC Tramadol HCl (Ultram) 50 mg Q4H PRN PO PAIN Last administered on 05/13/17 18: 42; Start 05/13/17 at 14:45 Docusate Sodium (Colace) 100 mg BID PO Last administered on 05/13/17 21:11; Start 05/13/17 at 21:00 Flecainide Acetate (Tambocor) 50 mg Q12HR PO Last administered on 05/13/17 21: 12; Start 05/13/17 at 21:00 Active Scripts Active Reported Potassium Chloride Oral Liquid (Potassium Chloride) 20 Meq/15 Ml Liquid 20 Meq PEG DAILY LAST DOSE GIVEN: DATE: TIME: NEXT DOSE DUE: DATE: TIME: (Olopatadine Hcl) 2.5 Ml Drops 1 Drop EACHEYE DAILY LAST DOSE GIVEN: DATE: TIME: NEXT DOSE DUE: DATE: TIME: Metoprolol Tartrate 25 Mg Tablet 1 Tab PO BID LAST DOSE GIVEN: DATE: TIME: NEXT DOSE DUE: DATE: TIME: Diagnosis: Problems: (1) Anxiety disorder (2) Mild cognitive disorder (3) Impulse control disorder (4) Major depressive disorder, recurrent episode CHELSEA RINCON MD May 13, 2017 21:37
[2017-05-14] MEDS: traMADol 50 MG TABLET PO PRN ×2 (04:51→20:54)
[2017-05-14] MEDS: METOPROLOL TART IMMED RELEASE 25 MG TABLET PO SCH ×2 (04:52→20:55)
[2017-05-14 05:17] VITALS: BP 111/76
[2017-05-14 06:57] LABS: C REACTIVE PROTEIN 1.3 mg/L (0-3.3); CALCIUM 8.2 mg/dL (8.5-10.1); CREATININE 0.9 mg/dL (0.7-1.3); MAGNESIUM 1.8 mg/dL (1.8-2.4); POTASSIUM 4.2 mmol/L (3.5-5.1)
--- NOTE | 2017-05-14 07:11 | PN ---
DATE: 05/13/2017 SUBJECTIVE: The patient is resting, slightly propped up in bed, in no apparent distress, definitely more awake, alert. On questioning him, he is complaining of pain, which he describes all over. Apparently has another syncopal episode during which he was in SVT with a heart rate up to 200 for which he was seen by the Cardiology team and his metoprolol was resumed. He apparently has had an echocardiogram done yesterday, which showed that his left ventricular ejection fraction is normal, ejection of 55%, normal left ventricular segmental wall motion, mild aortic regurgitation, mild mitral regurgitation, [id number] tricuspid regurgitation. His pulmonary artery pressure was estimated 38 mmHg with no evidence of significant pericardial effusion. He has also bilateral carotid Doppler ultrasound, which no evidence of hemodynamically significant stenosis. The D-dimer was high, so I did order a CT angio of the chest, which showed that there is no filling defect seen within the major branches either pulmonary artery. There is no CT evidence of pulmonary embolism. Has scattered atherosclerotic plaque formation seen involving the thoracic aorta and its branches. The thoracic aorta is tortuous, but tapers normally. The heart is mildly enlarged. He has also minimal dependent subsegmental atelectasis seen involving both lungs, calcified right lower plaque noted. No area of consolidation is seen. No pleural effusion or pneumothorax seen. PHYSICAL EXAMINATION: GENERAL: When I examined him this afternoon, he was resting slightly propped up in bed, in no apparent respiratory distress. He was pale, somewhat cachectic, but not jaundiced, cyanosis, or thyromegaly. No jugular venous distension. No limb edema. VITAL SIGNS: His heart rate was 83, blood pressure 120/81, temperature was 97.9, respiratory rate was 18 and oxygen saturation was 96%. HEAD, EYES, EARS, NOSE AND THROAT: Showed normocephalic, atraumatic. NECK: Supple. HEART: Showed normal first and second heart sounds with no gallop, rub or murmur. CHEST: Clear to auscultation. No crepitation or rhonchi. ABDOMEN: Distended, soft, nontender. No guarding or rigidity. No organomegaly. Hernial orifices intact. Bowel sounds normal. NEUROLOGIC: He was awake, alert, responding appropriately. Cranial nerves intact. He moves extremities without difficulty, actually managed to walk with a walker. His intake over the last 24 hours; intake and output incompletely recorded. LABORATORY DATA: As of this morning showed a serum sodium 136, potassium 3.9, chloride 102, bicarbonate 27, anion gap of 7, BUN 8, creatinine 0.7, estimated GFR was 170 mL per minute. His glucose was 91, calcium was 8.3, magnesium was 1.7. Total bilirubin, AST, ALT, alkaline phosphatase were normal. Total protein was 5.6, albumin 2.8. White cell count was 4200, hemoglobin 12, hematocrit 34, MCV 98 and platelet count of 176,000. His D-dimer was high at 5.53. The nasal screen for MRSA PCR was negative. ASSESSMENT: Recurrent syncopal episode twice at [facility] and [place] was noted to have SVT with a ventricular rate of 180-200, syncopal episode most likely due to recurrent episode of SVT. The patient is known to have paroxysmal atrial fibrillation, but he is currently in sinus rhythm with frequent PACs and recurrent short episodes of supraventricular tachycardia lasting up to about 20 seconds. Other issues include obviously pain mostly around the perianal area as he is status post hemorrhoidectomy, hypertension, hyperlipidemia, type 2 diabetes. PLAN: My plan is to continue with the beta blockers. For his pain, I will add tramadol 50 mg every 4 hours as needed. We will continue to monitor him and adjust beta blockers to control the heart rate. CHANTEL DELGADO MD DR: GUIDO/shanta JOB#: [id number] / [id number]
[2017-05-14] MEDS: DOCUSATE SODIUM 100 MG CAPSULE PO SCH ×2 (10:23→20:53)
[2017-05-14] MEDS: FLECAINIDE 50 MG TABLET. PO SCH ×2 (10:23→20:54)
[2017-05-14] MEDS: KETOTIFEN FUMARATE 0.025% OPHT SOLUTION BOTTLE. OU SCH ×2 (10:23→20:52)
[2017-05-14] MEDS: POTASSIUM CHLORIDE 20 MEQ/15 ML ORAL LIQUID. PO SCH (10:23)
[2017-05-14] MEDS: ENOXAPARIN ** NOTE DOSE ** SYRINGE SQ SCH ×2 (10:24→20:53)
--- NOTE | 2017-05-14 10:30 | PDOC ---
PROGRESS NOTES Assessment 1. SVT - no new. Normal LV function. Denies history of coronary artery disease. Continue metoprolol and Flecainide started yesterday. 2. syncope - ? secondary to #1. No new episodes. 3. PAF - remains sinus with PACs. 4. anxiety/depression Problems: Subjective no chest pain, no dyspnea, no palpitations, no lightheadedness or new syncope Objective Vital Signs Date Time Temp Pulse Resp B/P (MAP) Pulse Ox O2 Delivery O2 Flow Rate FiO2 05/14/17 10:23 62 111/76 05/14/17 06:00 18 98 Room Air 05/14/17 05:17 98.1 Intake and Output 05/15/17 07:00 # Voids 1 Abdomen: Normal bowel sounds, Soft, No tenderness Heart: Regular rate, Normal S1, Normal S2 Extremities: No cyanosis, No edema, Normal pulses General: Alert, Oriented X3, Cooperative Lungs: Clear to auscultation, Normal air movement Neuro: Normal speech, Strength at 5/5 X4 ext Psych/Mental Status: Mental status NL, Mood NL Review of Relevant I have reviewed the following items abdulaziz (where applicable) has been applied. Labs Laboratory Tests Test 05/12/17 13:45 05/12/17 15:09 05/13/17 06:30 05/13/17 06:38 Nasal Screen MRSA (PCR) Negative (Negative) White Blood Count 4.6 x10^3/uL (4.0-11.0) 4.2 x10^3/uL (4.0-11.0) Red Blood Count 3.24 x10^6/uL (4.30-5.70) 3.51 x10^6/uL (4.30-5.70) Hemoglobin 11.0 g/dL (13.0-17.5) 12.0 g/dL (13.0-17.5) Hematocrit 31.8 % (39.0-53.0) 34.3 % (39.0-53.0) Mean Corpuscular Volume 98 fL (79-100) 98 fL (79-100) Mean Corpuscular Hemoglobin 34 pg (25-35) 34 pg (25-35) Mean Corpuscular Hemoglobin Concent 35 g/dL (31-37) 35 g/dL (31-37) Red Cell Distribution Width 14.1 % (11.5-14.5) 14.0 % (11.5-14.5) Platelet Count 184 x10^3/uL (140-400) 176 x10^3/uL (140-400) Neutrophils (%) (Auto) 53 % (31-73) 50 % (31-73) Lymphocytes (%) (Auto) 32 % (24-48) 36 % (24-48) Monocytes (%) (Auto) 13 % (0-9) 12 % (0-9) Eosinophils (%) (Auto) 2 % (0-3) 1 % (0-3) Basophils (%) (Auto) 1 % (0-3) 1 % (0-3) Neutrophils # (Auto) 2.4 x10^3uL (1.8-7.7) 2.1 x10^3uL (1.8-7.7) Lymphocytes # (Auto) 1.5 x10^3/uL (1.0-4.8) 1.5 x10^3/uL (1.0-4.8) Monocytes # (Auto) 0.6 x10^3/uL (0.0-1.1) 0.5 x10^3/uL (0.0-1.1) Eosinophils # (Auto) 0.1 x10^3/uL (0.0-0.7) 0.1 x10^3/uL (0.0-0.7) Basophils # (Auto) 0.0 x10^3/uL (0.0-0.2) 0.0 x10^3/uL (0.0-0.2) D-Dimer (Kailyn) 5.33 mg/L (0.00-0.50) Sodium Level 138 mmol/L (136-145) 136 mmol/L (136-145) Potassium Level 3.8 mmol/L (3.5-5.1) 3.9 mmol/L (3.5-5.1) Chloride Level 103 mmol/L (98-107) 102 mmol/L (98-107) Carbon Dioxide Level 26 mmol/L (21-32) 27 mmol/L (21-32) Anion Gap 9 (6-14) 7 (6-14) Blood Urea Nitrogen 11 mg/dL (8-26) 8 mg/dL (8-26) Creatinine 0.8 mg/dL (0.7-1.3) 0.7 mg/dL (0.7-1.3) Estimated GFR (Cockcroft-Gault) 91.7 106.9 BUN/Creatinine Ratio 14 (6-20) 11 (6-20) Glucose Level 137 mg/dL (70-99) 91 mg/dL (70-99) Calcium Level 8.3 mg/dL (8.5-10.1) 8.3 mg/dL (8.5-10.1) Total Bilirubin 0.3 mg/dL (0.2-1.0) 0.4 mg/dL (0.2-1.0) Aspartate Amino Transf (AST/SGOT) 19 U/L (15-37) 21 U/L (15-37) Alanine Aminotransferase (ALT/SGPT) 26 U/L (16-63) 26 U/L (16-63) Alkaline Phosphatase 45 U/L (46-116) 48 U/L (46-116) Troponin I Quantitative < 0.017 ng/mL (0-0.055) Total Protein 5.4 g/dL (6.4-8.2) 5.6 g/dL (6.4-8.2) Albumin 2.7 g/dL (3.4-5.0) 2.8 g/dL (3.4-5.0) Albumin/Globulin Ratio 1.0 (1.0-1.7) 1.0 (1.0-1.7) Thyroid Stimulating Hormone (TSH) 1.125 uIU/mL (0.358-3.740) Magnesium Level 1.7 mg/dL (1.8-2.4) Test 05/14/17 06:34 Erythrocyte Sedimentation Rate 9 (0-15) Sodium Level 135 mmol/L (136-145) Potassium Level 4.2 mmol/L (3.5-5.1) Chloride Level 102 mmol/L (98-107) Carbon Dioxide Level 30 mmol/L (21-32) Anion Gap 3 (6-14) Blood Urea Nitrogen 10 mg/dL (8-26) Creatinine 0.9 mg/dL (0.7-1.3) Estimated GFR (Cockcroft-Gault) 80.0 Glucose Level 95 mg/dL (70-99) Calcium Level 8.2 mg/dL (8.5-10.1) Magnesium Level 1.8 mg/dL (1.8-2.4) C-Reactive Protein 1.3 mg/L (0-3.3) Medications Current Medications Acetaminophen (Tylenol) 650 mg PRN Q6HRS PRN PO PAIN/TEMP Last administered on 05/13/17 13:22; Start 05/12/17 at 10:45 Vitamin D (Vitamin D3) 50,000 unit WEEKLY PO ; Start 05/17/17 at 09:00 Ketotifen Fumarate (Zaditor) 1 drop BID OU Last administered on 05/14/17 10:23 ; Start 05/12/17 at 21:00 Al Hydroxide/Mg Hydroxide (Mylanta Plus Xs) 30 ml PRN AFTMEAL PRN PO DYSPEPSIA ; Start 05/12/17 at 10:45 Magnesium Hydroxide (Milk Of Magnesia) 2,400 mg PRN QHS PRN PO CONSTIPATION; Start 05/12/17 at 10:45 Multi-Ingredient Ointment (Analgesic [place]) 1 nicole PRN QID PRN TP MUSCLE PAIN; Start 05/12/17 at 10:45 Potassium Chloride (KCl Oral Soln) 20 meq DAILY PO Last administered on 10:23; Start 05/13/17 at 09:00 Tamsulosin HCl (Flomax) 0.4 mg QHS PO Last administered on 05/13/17 21:11; Start 05/12/17 at 21:00 Iohexol (Omnipaque 300 Mg/ml) 75 ml 1X ONCE IV Last administered on 05/12/17 18:19; Start 05/12/17 at 17:45; Stop 05/12/17 at 17:46; Status DC Info (Do NOT chart on this entry -- for MONITORING) 1 each PRN DAILY PRN MC SEE COMMENTS; Start 05/12/17 at 17:45; Stop 05/14/17 at 17:44 Enoxaparin Sodium (Lovenox 60mg Syringe) 50 mg BID SQ Last administered on 05/14 10:24; Start 05/12/17 at 21:00 Iohexol (Omnipaque 300 Mg/ml) 75 ml 1X ONCE IV ; Start 05/12/17 at 18:00; Stop 05/12/17 at 18:03; Status DC Adenosine (Adenocard) 6 mg STK-MED ONCE IV ; Start 05/13/17 at 08:28; Stop 05/13 at 08:29; Status DC Metoprolol Tartrate (Lopressor) 12.5 mg Q6HRS PO Last administered on 04:52; Start 05/13/17 at 12:00 Metoprolol Tartrate (Lopressor) 12.5 mg 1X ONCE PO Last administered on 09:18; Start 05/13/17 at 09:00; Stop 05/13/17 at 09:03; Status DC Tramadol HCl (Ultram) 50 mg Q4H PRN PO PAIN Last administered on 05/14/17 04: 51; Start 05/13/17 at 14:45 Docusate Sodium (Colace) 100 mg BID PO Last administered on 05/14/17 10:23; Start 05/13/17 at 21:00 Flecainide Acetate (Tambocor) 50 mg Q12HR PO Last administered on 05/14/17 10: 23; Start 05/13/17 at 21:00 Active Scripts Active Reported Potassium Chloride Oral Liquid (Potassium Chloride) 20 Meq/15 Ml Liquid 20 Meq PEG DAILY LAST DOSE GIVEN: DATE: TIME: NEXT DOSE DUE: DATE: TIME: Pataday (Olopatadine Hcl) 2.5 Ml Drops 1 Drop EACHEYE DAILY LAST DOSE GIVEN: DATE: TIME: NEXT DOSE DUE: DATE: TIME: Metoprolol Tartrate 25 Mg Tablet 1 Tab PO BID LAST DOSE GIVEN: DATE: TIME: NEXT DOSE DUE: DATE: TIME: Vitals/I & O Vital Sign - Last 24 Hours 05/13/17 05/13/17 05/13/17 05/13/17 10:52 10:58 12:07 15:25 Temp 97.9 97.9 Pulse 94 77 83 68 Resp 18 20 B/P (MAP) 101/59 (73) 120/81 101/65 (77) Pulse Ox 96 98 O2 Delivery Room Air Room Air 05/13/17 05/13/17 05/13/17 05/13/17 18:43 20:00 20:09 21:12 Temp 98.1 Pulse 76 89 89 Resp 20 B/P (MAP) 97/65 102/66 (78) 102/66 Pulse Ox 93 O2 Delivery Room Air Room Air 05/13/17 05/13/17 05/14/17 05/14/17 22:50 23:57 04:51 04:52 Temp 98.3 Pulse 76 58 62 Resp 20 20 B/P (MAP) 105/65 (78) 105/65 111/76 Pulse Ox 95 95 O2 Delivery Room Air Room Air 05/14/17 05/14/17 05/14/17 05:17 06:00 10:23 Temp 98.1 Pulse 62 62 Resp 20 18 B/P (MAP) 111/76 (88) 111/76 Pulse Ox 98 98 O2 Delivery Room Air Room Air MATTHEW RUCKER APRN May 14, 2017 10:30
[2017-05-14 11:07] VITALS: BP 106/72
[2017-05-14 14:56] VITALS: BP 101/64
--- NOTE | 2017-05-14 15:04 | PDOC ---
Exam Óscar Demential Exam: Óscar Note: Please also refer to the separate dictated note~for this date of service dictated separately.~Patient seen individually. Discussed the patient with Nursing staff reviewed the chart.~Reviewed interim history and current functioning. Reviewed vital signs,~Labs/ Radiology~and current medications noted below. Continue current treatment with the changes noted in the dictated addendum note Assessment: Vital Signs: Vital Signs Date Time Temp Pulse Resp B/P (MAP) Pulse Ox O2 Delivery O2 Flow Rate FiO2 05/14/17 14:56 97.8 65 20 101/64 (76) 99 Room Air I&O Intake and Output 05/15/17 07:00 Intake Total 120 ml Balance 120 ml Intake Oral 120 ml # Voids 1 Labs: Laboratory Tests Test 05/14/17 06:34 Erythrocyte Sedimentation Rate 9 (0-15) Sodium Level 135 mmol/L (136-145) L Potassium Level 4.2 mmol/L (3.5-5.1) Chloride Level 102 mmol/L (98-107) Carbon Dioxide Level 30 mmol/L (21-32) Anion Gap 3 (6-14) L Blood Urea Nitrogen 10 mg/dL (8-26) Creatinine 0.9 mg/dL (0.7-1.3) Estimated GFR (Cockcroft-Gault) 80.0 Glucose Level 95 mg/dL (70-99) Calcium Level 8.2 mg/dL (8.5-10.1) L Magnesium Level 1.8 mg/dL (1.8-2.4) C-Reactive Protein 1.3 mg/L (0-3.3) Current Medications: Meds: Current Medications Acetaminophen (Tylenol) 650 mg PRN Q6HRS PRN PO PAIN/TEMP Last administered on 05/13/17 13:22; Start 05/12/17 at 10:45 Vitamin D (Vitamin D3) 50,000 unit WEEKLY PO ; Start 05/17/17 at 09:00 Ketotifen Fumarate (Zaditor) 1 drop BID OU Last administered on 05/14/17 10:23 ; Start 05/12/17 at 21:00 Al Hydroxide/Mg Hydroxide (Mylanta Plus Xs) 30 ml PRN AFTMEAL PRN PO DYSPEPSIA ; Start 05/12/17 at 10:45 Magnesium Hydroxide (Milk Of Magnesia) 2,400 mg PRN QHS PRN PO CONSTIPATION; Start 05/12/17 at 10:45 Multi-Ingredient Ointment (Analgesic [place]) 1 nicole PRN QID PRN TP MUSCLE PAIN; Start 05/12/17 at 10:45 Potassium Chloride (KCl Oral Soln) 20 meq DAILY PO Last administered on 10:23; Start 05/13/17 at 09:00 Tamsulosin HCl (Flomax) 0.4 mg QHS PO Last administered on 05/13/17 21:11; Start 05/12/17 at 21:00 Iohexol (Omnipaque 300 Mg/ml) 75 ml 1X ONCE IV Last administered on 05/12/17 18:19; Start 05/12/17 at 17:45; Stop 05/12/17 at 17:46; Status DC Info (Do NOT chart on this entry -- for MONITORING) 1 each PRN DAILY PRN MC SEE COMMENTS; Start 05/12/17 at 17:45; Stop 05/14/17 at 17:44 Enoxaparin Sodium (Lovenox 60mg Syringe) 50 mg BID SQ Last administered on 05/14 10:24; Start 05/12/17 at 21:00 Iohexol (Omnipaque 300 Mg/ml) 75 ml 1X ONCE IV ; Start 05/12/17 at 18:00; Stop 05/12/17 at 18:03; Status DC Adenosine (Adenocard) 6 mg STK-MED ONCE IV ; Start 05/13/17 at 08:28; Stop 05/13 at 08:29; Status DC Metoprolol Tartrate (Lopressor) 12.5 mg Q6HRS PO Last administered on 04:52; Start 05/13/17 at 12:00; Stop 05/14/17 at 10:32; Status DC Metoprolol Tartrate (Lopressor) 12.5 mg 1X ONCE PO Last administered on 09:18; Start 05/13/17 at 09:00; Stop 05/13/17 at 09:03; Status DC Tramadol HCl (Ultram) 50 mg Q4H PRN PO PAIN Last administered on 05/14/17 04: 51; Start 05/13/17 at 14:45 Docusate Sodium (Colace) 100 mg BID PO Last administered on 05/14/17 10:23; Start 05/13/17 at 21:00 Flecainide Acetate (Tambocor) 50 mg Q12HR PO Last administered on 05/14/17 10: 23; Start 05/13/17 at 21:00 Metoprolol Tartrate (Lopressor) 25 mg BID PO ; Start 05/14/17 at 21:00 Active Scripts Active Reported Potassium Chloride Oral Liquid (Potassium Chloride) 20 Meq/15 Ml Liquid 20 Meq PEG DAILY LAST DOSE GIVEN: DATE: TIME: NEXT DOSE DUE: DATE: TIME: Pataday (Olopatadine Hcl) 2.5 Ml Drops 1 Drop EACHEYE DAILY LAST DOSE GIVEN: DATE: TIME: NEXT DOSE DUE: DATE: TIME: Metoprolol Tartrate 25 Mg Tablet 1 Tab PO BID LAST DOSE GIVEN: DATE: TIME: NEXT DOSE DUE: DATE: TIME: Diagnosis: Problems: (1) Major depressive disorder, recurrent episode (2) Impulse control disorder (3) Mild cognitive disorder (4) Anxiety disorder CHELSEA RINCON MD May 14, 2017 15:04
[2017-05-14 19:00] VITALS: BP 122/78
[2017-05-14] MEDS: TAMSULOSIN 0.4 MG CAP.ER.24H. PO SCH (20:53)
--- NOTE | 2017-05-14 21:38 | PDOC ---
Exam Óscar Demential Exam: Óscar Note: Please also refer to the separate dictated note~for this date of service dictated separately.~Patient seen individually. Discussed the patient with Nursing staff reviewed the chart.~Reviewed interim history and current functioning. Reviewed vital signs,~Labs/ Radiology~and current medications noted below. Continue current treatment with the changes noted in the dictated addendum note Assessment: Vital Signs: Vital Signs Date Time Temp Pulse Resp B/P (MAP) Pulse Ox O2 Delivery O2 Flow Rate FiO2 05/14/17 20:55 61 122/78 05/14/17 20:54 18 97 Room Air 05/14/17 19:00 98.2 I&O Intake and Output 05/15/17 07:00 Intake Total 240 ml Balance 240 ml Intake Oral 240 ml # Voids 2 # Bowel Movements 1 Labs: Laboratory Tests Test 05/14/17 06:34 Erythrocyte Sedimentation Rate 9 (0-15) Sodium Level 135 mmol/L (136-145) L Potassium Level 4.2 mmol/L (3.5-5.1) Chloride Level 102 mmol/L (98-107) Carbon Dioxide Level 30 mmol/L (21-32) Anion Gap 3 (6-14) L Blood Urea Nitrogen 10 mg/dL (8-26) Creatinine 0.9 mg/dL (0.7-1.3) Estimated GFR (Cockcroft-Gault) 80.0 Glucose Level 95 mg/dL (70-99) Calcium Level 8.2 mg/dL (8.5-10.1) L Magnesium Level 1.8 mg/dL (1.8-2.4) C-Reactive Protein 1.3 mg/L (0-3.3) Current Medications: Meds: Current Medications Acetaminophen (Tylenol) 650 mg PRN Q6HRS PRN PO PAIN/TEMP Last administered on 05/13/17 13:22; Start 05/12/17 at 10:45 Vitamin D (Vitamin D3) 50,000 unit WEEKLY PO ; Start 05/17/17 at 09:00 Ketotifen Fumarate (Zaditor) 1 drop BID OU Last administered on 05/14/17 20:52 ; Start 05/12/17 at 21:00 Al Hydroxide/Mg Hydroxide (Mylanta Plus Xs) 30 ml PRN AFTMEAL PRN PO DYSPEPSIA ; Start 05/12/17 at 10:45 Magnesium Hydroxide (Milk Of Magnesia) 2,400 mg PRN QHS PRN PO CONSTIPATION; Start 05/12/17 at 10:45 Multi-Ingredient Ointment (Analgesic [place]) 1 nicole PRN QID PRN TP MUSCLE PAIN; Start 05/12/17 at 10:45 Potassium Chloride (KCl Oral Soln) 20 meq DAILY PO Last administered on 10:23; Start 05/13/17 at 09:00 Tamsulosin HCl (Flomax) 0.4 mg QHS PO Last administered on 05/14/17 20:53; Start 05/12/17 at 21:00 Iohexol (Omnipaque 300 Mg/ml) 75 ml 1X ONCE IV Last administered on 05/12/17 18:19; Start 05/12/17 at 17:45; Stop 05/12/17 at 17:46; Status DC Info (Do NOT chart on this entry -- for MONITORING) 1 each PRN DAILY PRN MC SEE COMMENTS; Start 05/12/17 at 17:45; Stop 05/14/17 at 17:44; Status DC Enoxaparin Sodium (Lovenox 60mg Syringe) 50 mg BID SQ Last administered on 05/14 20:53; Start 05/12/17 at 21:00 Iohexol (Omnipaque 300 Mg/ml) 75 ml 1X ONCE IV ; Start 05/12/17 at 18:00; Stop 05/12/17 at 18:03; Status DC Adenosine (Adenocard) 6 mg STK-MED ONCE IV ; Start 05/13/17 at 08:28; Stop 05/13 at 08:29; Status DC Metoprolol Tartrate (Lopressor) 12.5 mg Q6HRS PO Last administered on 04:52; Start 05/13/17 at 12:00; Stop 05/14/17 at 10:32; Status DC Metoprolol Tartrate (Lopressor) 12.5 mg 1X ONCE PO Last administered on 09:18; Start 05/13/17 at 09:00; Stop 05/13/17 at 09:03; Status DC Tramadol HCl (Ultram) 50 mg Q4H PRN PO PAIN Last administered on 05/14/17 20: 54; Start 05/13/17 at 14:45 Docusate Sodium (Colace) 100 mg BID PO Last administered on 05/14/17 20:53; Start 05/13/17 at 21:00 Flecainide Acetate (Tambocor) 50 mg Q12HR PO Last administered on 05/14/17 20: 54; Start 05/13/17 at 21:00 Metoprolol Tartrate (Lopressor) 25 mg BID PO Last administered on 05/14/17 20: 55; Start 05/14/17 at 21:00 Active Scripts Active Reported Potassium Chloride Oral Liquid (Potassium Chloride) 20 Meq/15 Ml Liquid 20 Meq PEG DAILY LAST DOSE GIVEN: DATE: TIME: NEXT DOSE DUE: DATE: TIME: Pataday (Olopatadine Hcl) 2.5 Ml Drops 1 Drop EACHEYE DAILY LAST DOSE GIVEN: DATE: TIME: NEXT DOSE DUE: DATE: TIME: Metoprolol Tartrate 25 Mg Tablet 1 Tab PO BID LAST DOSE GIVEN: DATE: TIME: NEXT DOSE DUE: DATE: TIME: Diagnosis: Problems: (1) Anxiety disorder (2) Mild cognitive disorder (3) Impulse control disorder (4) Major depressive disorder, recurrent episode CHELSEA RINCON MD May 14, 2017 21:38
[2017-05-14 23:00] VITALS: BP 116/72
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
[2017-05-15 05:13] VITALS: BP 124/72
--- NOTE | 2017-05-15 05:55 | PN ---
DATE: 05/14/2017 SUBJECTIVE: The patient is resting, slightly propped up in bed, no apparent distress. He is more awake, responsive and active. He apparently has had no further episodes of syncope, no further episodes of SVT. He is now on metoprolol 25 mg p.o. b.i.d. He has been up and about walking with a walker, seemed to be steady. He apparently does not qualify to go up to [facility] and our caseworker is working with his family to find placement. On questioning him, he denied any complaint except pain in his perineal area because of the recent hemorrhoidectomy, although he had bowel movement without difficulty today. PHYSICAL EXAMINATION: GENERAL: When I examined him, he looked pale, cachectic, but no jaundice, cyanosis, or thyromegaly. No jugular venous distention. No limb edema. VITAL SIGNS: His heart rate was 65, blood pressure was 101/64, temperature was 97.8, respiratory rate 20, and oxygen saturation was 99%. HEAD, EYES, EARS, NOSE AND THROAT: Normocephalic, atraumatic. NECK: Supple. HEART: Showed normal first and second heart sounds with no gallop, rub or murmur. CHEST: Clear to auscultation. No crepitation or rhonchi. ABDOMEN: Distended, soft, nontender. No guarding or rigidity. No organomegaly. Hernial orifices intact. Bowel sounds normal. NEUROLOGIC: He was definitely more awake, alert, responsive. All his cranial nerves are intact. He moves extremities without difficulty. His intake over the last 24 hours and output were incompletely recorded. LABORATORY DATA: This morning showed a serum sodium 135, potassium 4.2, chloride 102, bicarbonate 30, anion gap of 3, BUN 10, creatinine 0.9, estimated GFR was 80 mL per minute. His glucose was 95, calcium was 8.2, magnesium 1.8. Total bilirubin 3, AST, ALT, alkaline phosphatase were normal. His total protein was 5.6, albumin 2.8. His white cell count was 4200, hemoglobin 12, hematocrit 34, MCV 98 and platelet count of 176,000 with normal manual differential. His D-dimer was high at 5.33 mg/dL. ASSESSMENT: 1. Recurrent syncopal episode twice at [facility] and once out in the morning. 2. The patient was found to be in supraventricular tachycardia with ventricular rate of 180 to 100. 3. Paroxysmal atrial fibrillation. The patient was started on metoprolol. He is now on 25 mg twice a day and his heart rate is well controlled. He has no further episode of syncope and no further episode of supraventricular tachycardia. 3. Other medical problems including hypertension, hyperlipidemia, type 2 diabetes. PLAN: Obviously to continue with all his current medication and await arrangement by the caseworker for long-term placement. CHANTEL DELGADO MD DR: GUIDO/shanta JOB#: [id number] / [id number]
[2017-05-15] MEDS: KETOTIFEN FUMARATE 0.025% OPHT SOLUTION BOTTLE. OU SCH (08:09)
[2017-05-15] MEDS: ENOXAPARIN ** NOTE DOSE ** SYRINGE SQ SCH (08:10)
[2017-05-15] MEDS: METOPROLOL TART IMMED RELEASE 25 MG TABLET PO SCH (08:11)
[2017-05-15] MEDS: FLECAINIDE 50 MG TABLET. PO SCH (08:11)
[2017-05-15] MEDS: DOCUSATE SODIUM 100 MG CAPSULE PO SCH (08:12)
[2017-05-15] MEDS: POTASSIUM CHLORIDE 20 MEQ/15 ML ORAL LIQUID. PO SCH (08:12)
[2017-05-15 10:43] VITALS: BP 95/61
--- NOTE | 2017-05-15 12:19 | EKG ---
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
--- NOTE | 2017-05-15 12:26 | EKG ---
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
--- NOTE | 2017-05-15 12:33 | EKG ---
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
[2017-05-15] MEDS ORDERED: FLEC100T PO (14:13)
[2017-05-15] MEDS ORDERED: KETO5DRO4 EACHEYE (14:13)
[2017-05-15] MEDS ORDERED: DOCU-109 PO (14:13)
[2017-05-15] MEDS ORDERED: CHOL500016 PO (14:13)
[2017-05-15] MEDS ORDERED: ACET325T9 PO (14:13)
[2017-05-15] MEDS ORDERED: MAGN2400 PO (14:26)
[2017-05-15] MEDS ORDERED: POTA10TA10 PO (14:26)
[2017-05-15] MEDS ORDERED: TRAM50TA PO (14:26)
[2017-05-15] MEDS ORDERED: TAMS0.4C97 PO (14:26)
[2017-05-15] MEDS ORDERED: MAG-70 PO (14:40)
[2017-05-15] MEDS ORDERED: ENOX40DI SQ (14:40)
[2017-05-15] MEDS ORDERED: METH29OI TP (14:40)
--- NOTE | 2017-05-15 23:42 | DS ---
DATE OF DISCHARGE: 05/15/2017 HISTORY OF PRESENT ILLNESS: The patient is an 86-year-old male patient who was transferred from [facility] on account of 2 episodes of vasovagal attack with syncope when he was sitting on the toilet and straining. According to the nursing staff, he lost consciousness and they have to do sternal rubs for it and responded, he was on metoprolol and this was discontinued and has had recent hemorrhoidectomy, and is having severe pain whenever he goes to the toilet. He is also in atrial fibrillation and basically was transferred to [facility], telemetry with consulting cardiology team for further evaluation of his syncopal episode. While in [facility], he also developed an episode of supraventricular tachycardia, his heart rate went up to 180-200. HOSPITAL COURSE: His D-dimer was elevated and we did a CT angio of the chest, which showed no evidence of pulmonary emboli. He was started on metoprolol 12.5 mg twice a day and was increased to 25 mg twice a day and Tambocor was added 50 mg twice a day. The patient has had no further episodes of syncope, no further episode of supraventricular tachycardia. He has been hemodynamically stable, has been up and about walking with a walker with standby assist. He was evaluated by the Psych team and he does not meet any criteria to go back to [facility] and his is unable to take care of him at home at least for the time being and decision was made to discharge him to swing bed to improve his mobility. PHYSICAL EXAMINATION: GENERAL: When I saw him this afternoon, he was resting slightly propped up in bed, in no apparent respiratory distress, pale, no jaundice, cyanosis or thyromegaly. No jugular venous distention. No lower limb edema. VITAL SIGNS: His heart rate was 63, blood pressure was 95/61, his temperature was 98, respiratory rate was 16, and oxygen saturation was 98%. HEAD, EYES, EARS, NOSE, AND THROAT: Showed normocephalic, atraumatic. NECK: Supple. HEART: Showed normal first and second heart sounds with no gallop, rub or murmur. CHEST: Clear to auscultation. No crepitation or rhonchi. ABDOMEN: Distended, soft, nontender. No guarding or rigidity. No organomegaly. Hernial orifices intact. Bowel sounds normal. NEUROLOGIC: He is awake, alert, responding appropriately. All cranial nerves intact. EXTREMITIES: He moves extremities without difficulty, ambulates with a walker. LABORATORY DATA: Showed his white cell count was 4,200, hemoglobin 12, hematocrit 34, MCV 98, and platelet count of 176,000. His serum sodium was 135, potassium 4.2, chloride 102, bicarbonate 30, anion gap of 3, BUN 10, creatinine 0.9. His estimated GFR was 80 mL per minute. His glucose was 95, calcium was 8.2, magnesium was 1.8. His total bilirubin, AST, ALT, alkaline phosphatase were normal. Total protein was 5.6, albumin 2.8. His TSH was 1.125, C-reactive protein was 1.3 and sedimentation rate was 9 mm per hour. His D-dimer was high at 5.33 mg/dL. However, CT angio was negative. He has also bilateral carotid Doppler ultrasound, which showed that there is no evidence of hemodynamically significant stenosis. DISCHARGE MEDICATIONS: The patient will be discharged to Swing Bed to continue on following medications: Vitamin D 50,000 units p.o. once a week, metoprolol tartrate 25 mg p.o. b.i.d., flecainide acetate 50 mg twice a day, Colace 100 mg twice a day, tramadol 50 mg every 4 hours as needed, potassium chloride 20 mEq once a day, Lovenox 30 mg subcutaneously once a day, Flomax 0.4 mg at bedtime, Zaditor 1 drop to both eyes twice a day, multi-ingredient ointment 4 times a day, milk of magnesia 30 mL p.o. daily p.r.n. for constipation, Mylanta 30 mL p.o. 4 times a day, and Tylenol 650 mg once a day. FINAL DISCHARGE DIAGNOSES: 1. Recurrent syncopal episode twice at [facility] and once in the [facility]. 2. The patient was found to be in supraventricular tachycardia with ventricular rate up to 180-200. 3. Paroxysmal atrial fibrillation. 4. Hypertension. 5. Hyperlipidemia. 6. Type 2 diabetes. 7. Benign prostatic hypertrophy. CHANTEL DELGADO MD DR: GUIDO/shanta JOB#: [id number] / [id number]
[2017-05-16] MEDS ORDERED: ENOXAPARIN ** NOTE DOSE ** SYRINGE SQ SCH (09:00)
--- NOTE | 2017-05-17 01:39 | PN ---
DATE: 05/14/2017 PSYCHIATRIC PROGRESS NOTE This late entry date of 05/14/2017 covers elements not covered in my initial note of 05/14/2017. I met with the patient individually, discussed with nursing staff previously. Discussed with social service and nursing staff on the [facility] regarding possible transfer back to the [facility]. Apparently, the patient is doing reasonably well from a psychiatric standpoint. Denies suicidal ideation, and I will defer to the family for any further symptoms, then may have noticed prompting consideration for readmission to the [facility], failing which he may be transitioned to a lower level of care. REVIEW OF SYSTEMS: No CV, , pulmonary, eye, ENT system symptoms on review. MENTAL STATUS EXAMINATION: Oriented to himself and situation. Speech coherent, abstraction fair, computation impaired, language function intact. Attention span short. LABORATORY DATA: Reviewed. IMPRESSION: Unchanged from initial note. PLAN: Keep the patient off all psychotropics and we will await feedback from the family before reconsidering transfer back to the [facility] or discharge home. CHELSEA RINCON MD DR: SHAZIA/shanta JOB#: [id number] / [id number]
[2017-05-17] MEDS ORDERED: CHOLECALCIFEROL (VITAMIN D3) 50,000 UNIT CAPSULE PO SCH (09:00)
== END 2017-05-15 14:43 | disposition swing bed (61) | DRG 308 ==
LOC: 1 SOUTH 08:55
PROVIDERS: ADMIT Internal Medicine; ATTEND Internal Medicine
DX: I47.1 Supraventricular tachycardia (principal); E43 Unspecified severe protein-calorie malnutrition; R45.851 Suicidal ideations; I48.0 Paroxysmal atrial fibrillation; E11.9 Type 2 diabetes mellitus without complications; E86.0 Dehydration; F33.9 Major depressive disorder, recurrent, unspecified; Z68.1 Body mass index [BMI] 19.9 or less, adult; E78.5 Hyperlipidemia, unspecified; I08.3 Combined rheumatic disorders of mitral, aortic and tricuspid valves; F29 Unspecified psychosis not due to a substance or known physiological condition; F41.9 Anxiety disorder, unspecified; F63.9 Impulse disorder, unspecified; G47.00 Insomnia, unspecified; I10 Essential (primary) hypertension; N40.0 Benign prostatic hyperplasia without lower urinary tract symptoms; F43.10 Post-traumatic stress disorder, unspecified; G31.84 Mild cognitive impairment of uncertain or unknown etiology; I25.2 Old myocardial infarction; Z88.8 Allergy status to other drugs, medicaments and biological substances
CPT/HCPCS: 36415; 71275; 80048; 80053; 83735; 84443; 84484; 85025; 85379; 85651; 86140; 87641; 93005; 93306; 93880; J1650; Q9967

== ENCOUNTER 2017-05-15 14:45 | Inpatient (IN) | payer MEDICARE, OTHER ==
[~2017-05-15] VITALS: Ht 172.7 cm; Wt 53.6 kg
[~2017-05-15 14:45] MED LIST changes: +DOCU-109 PO; +ENOX40DI SQ; +FLEC100T PO; +MAG-70 PO; +POTA20LI27 PEG; +TAMS0.4C97 PO; +TRAM50TA PO
[2017-05-15 14:59] VITALS: BP 104/67
[2017-05-15] MEDS ORDERED: MAG HYDROX/AL HYDROX/SIMETH 30 ML ORAL.SUSP PO PRN (15:15)
[2017-05-15] MEDS ORDERED: ACETAMINOPHEN 325 MG TABLET PO PRN (15:15)
[2017-05-15] MEDS ORDERED: METHYL SALICYLATE/MENTHOL TOPICAL OINTMENT 29GM TUBE. TP PRN (15:15)
[2017-05-15] MEDS ORDERED: MAGNESIUM HYDROXIDE 2,400 MG/30 ML ORAL.SUSP. PO PRN (15:30)
[2017-05-15 19:20] VITALS: BP 119/77
[2017-05-15] MEDS: KETOTIFEN FUMARATE 0.025% OPHT SOLUTION BOTTLE. OU SCH (20:10)
[2017-05-15] MEDS: FLECAINIDE 50 MG TABLET. PO SCH (20:10)
[2017-05-15] MEDS: DOCUSATE SODIUM 100 MG CAPSULE PO SCH (20:10)
[2017-05-15] MEDS: METOPROLOL TART IMMED RELEASE 25 MG TABLET PO SCH (20:11)
[2017-05-15] MEDS: TAMSULOSIN 0.4 MG CAP.ER.24H. PO SCH (20:11)
[2017-05-16 05:50] VITALS: BP 119/70
[2017-05-16] MEDS: KETOTIFEN FUMARATE 0.025% OPHT SOLUTION BOTTLE. OU SCH ×2 (09:00→20:42)
[2017-05-16] MEDS: DOCUSATE SODIUM 100 MG CAPSULE PO SCH ×2 (09:44→20:42)
[2017-05-16] MEDS: METOPROLOL TART IMMED RELEASE 25 MG TABLET PO SCH ×2 (09:45→20:42)
[2017-05-16] MEDS: FLECAINIDE 50 MG TABLET. PO SCH ×2 (09:45→20:42)
[2017-05-16] MEDS: ENOXAPARIN 40 MG/0.4 ML DISP.SYRIN. SQ SCH (09:46)
[2017-05-16] MEDS: POTASSIUM CHLORIDE 20 MEQ/15 ML ORAL LIQUID. PO SCH (09:46)
[2017-05-16 18:02] VITALS: BP 130/75
[2017-05-16] MEDS: traMADol 50 MG TABLET PO PRN (20:42)
[2017-05-16] MEDS: TAMSULOSIN 0.4 MG CAP.ER.24H. PO SCH (20:42)
[2017-05-17 06:06] VITALS: BP 110/74
[2017-05-17] MEDS: KETOTIFEN FUMARATE 0.025% OPHT SOLUTION BOTTLE. OU SCH ×2 (09:00→20:20)
[2017-05-17] MEDS ORDERED: CHOLECALCIFEROL (VITAMIN D3) 50,000 UNIT CAPSULE PO SCH (09:00)
[2017-05-17] MEDS ORDERED: NON FORMULARY ITEM (Cholecalciferol (Vitamin D3) (Vitamin D3) 50,000 UNIT) PO SCH (09:00)
[2017-05-17] MEDS: ENOXAPARIN 40 MG/0.4 ML DISP.SYRIN. SQ SCH (09:24)
[2017-05-17] MEDS: POTASSIUM CHLORIDE 20 MEQ/15 ML ORAL LIQUID. PO SCH (09:24)
[2017-05-17] MEDS: FLECAINIDE 50 MG TABLET. PO SCH ×2 (09:26→21:32)
[2017-05-17] MEDS: DOCUSATE SODIUM 100 MG CAPSULE PO SCH ×2 (09:31→20:20)
[2017-05-17] MEDS: METOPROLOL TART IMMED RELEASE 25 MG TABLET PO SCH ×2 (09:31→20:20)
[2017-05-17 18:10] VITALS: BP 119/76
[2017-05-17] MEDS: TAMSULOSIN 0.4 MG CAP.ER.24H. PO SCH (20:20)
[2017-05-18 05:32] VITALS: BP 127/71
[2017-05-18] MEDS: FLECAINIDE 50 MG TABLET. PO SCH ×2 (08:54→19:55)
[2017-05-18] MEDS: METOPROLOL TART IMMED RELEASE 25 MG TABLET PO SCH ×2 (08:54→19:56)
[2017-05-18] MEDS: POTASSIUM CHLORIDE 20 MEQ/15 ML ORAL LIQUID. PO SCH (08:54)
[2017-05-18] MEDS: DOCUSATE SODIUM 100 MG CAPSULE PO SCH ×2 (08:54→19:55)
[2017-05-18] MEDS: ENOXAPARIN 40 MG/0.4 ML DISP.SYRIN. SQ SCH (08:55)
[2017-05-18] MEDS: KETOTIFEN FUMARATE 0.025% OPHT SOLUTION BOTTLE. OU SCH ×2 (08:58→19:54)
[2017-05-18 17:49] VITALS: BP 118/72
[2017-05-18] MEDS: TAMSULOSIN 0.4 MG CAP.ER.24H. PO SCH (19:55)
[2017-05-19] MEDS: traMADol 50 MG TABLET PO PRN ×2 (00:42→20:22)
[2017-05-19 06:41] VITALS: BP 108/64
[2017-05-19] MEDS: KETOTIFEN FUMARATE 0.025% OPHT SOLUTION BOTTLE. OU SCH ×2 (09:06→20:22)
[2017-05-19] MEDS: METOPROLOL TART IMMED RELEASE 25 MG TABLET PO SCH ×2 (09:07→20:20)
[2017-05-19] MEDS: POTASSIUM CHLORIDE 20 MEQ/15 ML ORAL LIQUID. PO SCH (09:07)
[2017-05-19] MEDS: FLECAINIDE 50 MG TABLET. PO SCH ×2 (09:07→20:21)
[2017-05-19] MEDS: DOCUSATE SODIUM 100 MG CAPSULE PO SCH ×2 (09:07→20:20)
[2017-05-19] MEDS: ENOXAPARIN 40 MG/0.4 ML DISP.SYRIN. SQ SCH (09:07)
[2017-05-19 18:26] VITALS: BP 124/76
[2017-05-19] MEDS: TAMSULOSIN 0.4 MG CAP.ER.24H. PO SCH (20:20)
[2017-05-20 05:13] VITALS: BP 113/66
[2017-05-20] MEDS: ENOXAPARIN 40 MG/0.4 ML DISP.SYRIN. SQ SCH (08:39)
[2017-05-20] MEDS: METOPROLOL TART IMMED RELEASE 25 MG TABLET PO SCH (08:40)
[2017-05-20] MEDS: DOCUSATE SODIUM 100 MG CAPSULE PO SCH (08:40)
[2017-05-20] MEDS: POTASSIUM CHLORIDE 20 MEQ/15 ML ORAL LIQUID. PO SCH (08:40)
[2017-05-20 08:41] VITALS: BP 113/66
[2017-05-20] MEDS: KETOTIFEN FUMARATE 0.025% OPHT SOLUTION BOTTLE. OU SCH (08:41)
[2017-05-20] MEDS: FLECAINIDE 50 MG TABLET. PO SCH (08:41)
[2017-05-20] MEDS ORDERED: FLEC100T PO (10:28)
[2017-05-20] MEDS ORDERED: METO25TA4 PO (10:28)
--- NOTE | 2017-05-20 10:36 | PDOC3 ---
Discharge Summary Visit Information Date of Admission: May 15, 2017 Date of Discharge: May 20, 2017 Admitting Diagnosis Comments FINAL DISCHARGE DIAGNOSES: 1. Recurrent syncopal episode twice at [facility] and once in the [facility]. 2. The patient was found to be in supraventricular tachycardia with ventricular rate up to 180-200. 3. Paroxysmal atrial fibrillation. 4. Hypertension. 5. Hyperlipidemia. 6. Type 2 diabetes. 7. Benign prostatic hypertrophy. 8. weakness Problems: Brief Hospital Course Allergies Allergies Coded Allergies Type Severity Reaction Last Updated Verified bimatoprost Allergy Intermediate 05/09/17 Yes lisinopril Allergy Intermediate 05/09/17 Yes meclofenamic acid Allergy Intermediate 05/09/17 Yes Vital Signs Vital Signs Date Time Temp Pulse Resp B/P (MAP) Pulse Ox O2 Delivery O2 Flow Rate FiO2 05/20/17 09:32 Room Air 05/20/17 08:41 53 113/66 05/20/17 05:13 98.4 16 98 Brief Hospital Course Mr. Butt is an 86-year-old male patient who was transferred from [facility] on account of 2 episodes of vasovagal attack with syncope when he was sitting on the toilet and straining. According to the nursing staff, he lost consciousness and they have to do sternal rubs for it and responded, he was on metoprolol and this was discontinued and has had recent hemorrhoidectomy, and is having severe pain whenever he goes to the toilet. He is also in atrial fibrillation and basically was transferred to [facility], telemetry with consulting cardiology team for further evaluation of his syncopal episode. While in [facility], he also developed an episode of supraventricular tachycardia, his heart rate went up to 180-200. He was treated and then transferred to the [facility] Bed due to weakness. He did well with PT and OT and was ready for discharge on 05/20. Discharge Information Condition at Discharge: Improved Disposition/Orders: D/C to Home w/ HH Dischare Medications Current Medications Acetaminophen (Tylenol) 650 mg PRN Q6HRS PRN PO PAIN; Start 05/15/17 at 15:15 Docusate Sodium (Colace) 100 mg BID PO Last administered on 05/20/17 08:40; Start 05/15/17 at 21:00 Enoxaparin Sodium (Lovenox) 40 mg DAILY SQ Last administered on 05/20/17 08: 39; Start 05/16/17 at 09:00 Ketotifen Fumarate (Zaditor) 1 drop BID OU Last administered on 05/20/17 08: 41; Start 05/15/17 at 21:00 Al Hydroxide/Mg Hydroxide (Mylanta Plus Xs) 30 ml PRN AFTMEAL PRN PO DYSPEPSIA ; Start 05/15/17 at 15:15 Multi-Ingredient Ointment (Analgesic [place]) 1 nicole PRN QID PRN TP MUSCLE PAIN; Start 05/15/17 at 15:15 Metoprolol Tartrate (Lopressor) 25 mg BID PO Last administered on 05/19/17 20 :20; Start 05/15/17 at 21:00 Tamsulosin HCl (Flomax) 0.4 mg HS PO Last administered on 05/19/17 20:20; Start 05/15/17 at 21:00 Tramadol HCl (Ultram) 50 mg PRN Q4HRS PRN PO PAIN Last administered on 20:22; Start 05/15/17 at 15:15 Non-Formulary Medication 50,000 unit WEEKLY PO ; Start 05/17/17 at 09:00; Stop 05/17/17 at 09:00; Status DC Flecainide Acetate (Tambocor) 50 mg Q12HR PO Last administered on 05/20/17 08 :41; Start 05/15/17 at 21:00 Magnesium Hydroxide (Milk Of Magnesia) 2,400 mg PRN QHS PRN PO CONSTIPATION; Start 05/15/17 at 15:30 Potassium Chloride (KCl Oral Soln) 20 meq DAILY PO Last administered on 08:40; Start 05/16/17 at 09:00 Vitamin D (Vitamin D3) 50,000 unit WEEKLY PO Last administered on 05/17/17 09 :27; Start 05/17/17 at 09:00 Active Scripts Active Reported Lovenox (Enoxaparin Sodium) 40 Mg/0.4 Ml Disp.syrin 0.4 Ml SQ DAILY Analgesic [place] (Methyl Salicylate/Menthol) 28 Gm Oint...g. 1 Gm TP PRN QID PRN Antacid Suspension (Mag Hydrox/Al Hydrox/Simeth) 355 Ml Oral.susp 355 Ml PO PRN AFTMEAL PRN Milk Of Magnesia (Magnesium Hydroxide) 2,400 Mg/10 Ml Oral.susp 2,400 Mg PO PRN QHS PRN Flomax (Tamsulosin Hcl) 0.4 Mg Cap.er.24h 1 Cap PO HS Tramadol Hcl (Tramadol HCl) 50 Mg Tablet 50 Mg PO PRN Q4HRS PRN Zaditor (Ketotifen Fumarate) 5 Ml Drops 1 Drop EACHEYE BID Vitamin D3 (Cholecalciferol (Vitamin D3)) 5,000 Unit Tablet 50,000 Unit PO WEEKLY Tylenol (Acetaminophen) 325 Mg Tablet 650 Mg PO PRN Q6HRS PRN Colace (Docusate Sodium) 100 Mg Capsule 1 Cap PO BID Flecainide Acetate 100 Mg Tablet 50 Mg PO Q12HR Potassium Chloride Oral Liquid (Potassium Chloride) 20 Meq/15 Ml Liquid 20 Meq PEG DAILY LAST DOSE GIVEN: DATE: TIME: NEXT DOSE DUE: DATE: TIME: Metoprolol Tartrate 25 Mg Tablet 1 Tab PO BID LAST DOSE GIVEN: DATE: TIME: NEXT DOSE DUE: DATE: TIME: Patient Instructions Patient Instuctions meds reconciled. Will have home health. ANA MARÍA LARA DO May 20, 2017 10:36
== END 2017-05-20 12:07 | disposition home health service (06) | DRG 312 ==
LOC: 1 SOUTH 14:45 → LND 05-17 16:33
PROVIDERS: ADMIT Internal Medicine; ATTEND Internal Medicine
DX: R55 Syncope and collapse (principal); I48.0 Paroxysmal atrial fibrillation; E11.9 Type 2 diabetes mellitus without complications; I47.1 Supraventricular tachycardia; R53.1 Weakness; E78.5 Hyperlipidemia, unspecified; I10 Essential (primary) hypertension; K59.00 Constipation, unspecified; N40.0 Benign prostatic hyperplasia without lower urinary tract symptoms; Z79.899 Other long term (current) drug therapy; Z88.8 Allergy status to other drugs, medicaments and biological substances
CPT/HCPCS: J1650; 97112; 97116; 97530; 97535

== ENCOUNTER 2017-06-18 20:58 | Inpatient (IN) | payer MEDICARE, OTHER ==
[~2017-06-18] VITALS: Ht 165.1 cm; Wt 50.9 kg
[~2017-06-18 20:58] MED LIST changes: -POTA20LI27 PEG
--- NOTE | 2017-06-18 21:56 | RAD ---
CT Head W/O Contrast: History: ALTERED MENTAL STATUS, PSYCH EVAL Comparison: none Axial images were obtained without contrast. There is marked diffuse atrophy. There is no mass effect, extraaxial fluid collections or hydrocephalus. There is no focal loss of suarez-white matter distinction to suggest acute ischemia, i.e. stroke. Impression: No acute findings. RS Compliance Statement: One or more of the following individualized dose reduction techniques were utilized for this examination: 1. Automated exposure control 2. Adjustment of the mA and/or kV according to patient size 3. Use of iterative reconstruction technique Electronically signed by: Roderick Messina III, MD (06/18/2017 9:53 PM) [facility]
[2017-06-18 22:09] LABS: BASO % 1 % (0-3); EOS # 0.1 x10^3/uL (0.0-0.7); EOS % 3 % (0-3); HEMATOCRIT 37.5 % (39.0-53.0); HEMOGLOBIN 12.9 g/dL (13.0-17.5); LYMPH % 19 % (24-48); MEAN CORPUSCULAR HEMOGLOBIN 33 pg (25-35); MEAN CORPUSCULAR HGB CONC 34 g/dL (31-37); MEAN CORPUSCULAR VOLUME 97 fL (79-100); MONO # 0.6 x10^3/uL (0.0-1.1); MONO % 11 % (0-9); NEUT # 3.6 x10^3uL (1.8-7.7); NEUT % 67 % (31-73); PLATELET COUNT 201 x10^3/uL (140-400); RED BLOOD COUNT 3.87 x10^6/uL (4.30-5.70); RED CELL DISTRIBUTION WIDTH 13.5 % (11.5-14.5); WHITE BLOOD COUNT 5.3 x10^3/uL (4.0-11.0)
--- NOTE | 2017-06-18 22:15 | EKG ---
[address] [address] Test Date: 2017-06-18 Test Time: 21:15:42 Pat Name: KATIE BATISTA Department: Room: Gender: [facility]: MIA : 1930 Requested By: FANNIE BASURTO Order Number: [id number] Reading MD: Min Shabazz MD Measurements Intervals [place] Rate: 58 P: -5 WV: 212 QRS: -6 QRSD: 88 T: 12 QT: 510 QTc: 505 Interpretive Statements SINUS RHYTHM LEFTWARD AXIS Electronically Signed On 06-24-2017 14:27:24 CALL PERSON by Min Shabazz MD
[2017-06-18 22:23] LABS: ALBUMIN 3.2 g/dL (3.4-5.0); ALBUMIN/GLOBULIN RATIO 0.9 (1.0-1.7); BARBITURATES NEG (NEG); BENZODIAZEPINES NEG (NEG); CALCIUM 9.1 mg/dL (8.5-10.1); CANNABINOIDS NEG (NEG); COCAINE NEG (NEG); GFR 70.7; METHADONE NEG (NEG); OPIATES NEG (NEG); PHENCYCLIDINE NEG (NEG); POTASSIUM 3.7 mmol/L (3.5-5.1); TOTAL BILIRUBIN 0.3 mg/dL (0.2-1.0); TOTAL PROTEIN 6.7 g/dL (6.4-8.2)
[2017-06-18 22:24] LABS: AMPHETAMINE/METHAMPHETAMINE NEG (NEG)
[2017-06-18 22:26] LABS: ACETAMIN < 2.0 mcg/mL (10-30); ETHANOL < 10 mg/dL (0-10); SALIC 0.6 mg/dL (2.8-20.0)
--- NOTE | 2017-06-18 22:45 | PHYS DOC ---
Past History Past Medical History: A-Fib, GERD, Glaucoma, Hypertension Past Surgical History: Other Alcohol Use: Occasionally Drug Use: None Adult General Chief Complaint Chief Complaint: PSYCH EVALUATION HPI HPI Patient is a 87-year-old male presenting to the emergency department for evaluation of increased confusion and agitation and has been violent towards his . Patient denies any medical complaints including pain fevers chills nausea vomiting. He says that he is more confused than usual. Per daughter he is more violent and agitated but has not become physical. They are hoping for a psychiatric assessment. Review of Systems Review of Systems Constitutional: Denies fever or chills [] Eyes: Denies change in visual acuity, redness, or eye pain [] HENT: Denies nasal congestion or sore throat [] Respiratory: Denies cough or shortness of breath [] Cardiovascular: No additional information not addressed in HPI [] GI: Denies abdominal pain, nausea, vomiting, bloody stools or diarrhea [] : Denies dysuria or hematuria [] Musculoskeletal: Denies back pain or joint pain [] Integument: Denies rash or skin lesions [] Neurologic: Denies headache, focal weakness or sensory changes [] Endocrine: Denies polyuria or polydipsia [] All other systems were reviewed and found to be within normal limits, except as documented in this note. Allergies Allergies Allergies Coded Allergies Type Severity Reaction Last Updated Verified bimatoprost Allergy Intermediate 05/09/17 Yes lisinopril Allergy Intermediate 05/09/17 Yes meclofenamic acid Allergy Intermediate 05/09/17 Yes Physical Exam Physical Exam Constitutional: Well developed, well nourished, no acute distress, non-toxic appearance. [] HENT: Normocephalic, atraumatic, bilateral external ears normal, oropharynx moist, no oral exudates, nose normal. [] Eyes: PERRLA, EOMI, conjunctiva normal, no discharge. [] Neck: Normal range of motion, no tenderness, supple, no stridor. [] Cardiovascular:Heart rate regular rhythm, no murmur [] Lungs & Thorax: Bilateral breath sounds clear to auscultation [] Abdomen: Bowel sounds normal, soft, no tenderness, no masses, no pulsatile masses. [] Skin: Warm, dry, no erythema, no rash. [] Back: No tenderness, no CVA tenderness. [] Extremities: No tenderness, no cyanosis, no clubbing, ROM intact, no edema. [] Neurologic: Alert and oriented X 2, normal motor function, normal sensory function, no focal deficits noted. [] P Current Patient Data Vital Signs Vital Signs Date Time Temp Pulse Resp B/P (MAP) Pulse Ox O2 Delivery O2 Flow Rate FiO2 06/18/17 21:00 97.4 64 20 98 Room Air Lab Results Laboratory Tests Test 06/18/17 21:44 Sodium Level 141 mmol/L (136-145) Potassium Level 3.7 mmol/L (3.5-5.1) Chloride Level 104 mmol/L (98-107) Carbon Dioxide Level 28 mmol/L (21-32) Anion Gap 9 (6-14) Blood Urea Nitrogen 16 mg/dL (8-26) Creatinine 1.0 mg/dL (0.7-1.3) Estimated GFR (Cockcroft-Gault) 70.7 BUN/Creatinine Ratio 16 (6-20) Glucose Level 150 mg/dL (70-99) H Calcium Level 9.1 mg/dL (8.5-10.1) Magnesium Level 2.0 mg/dL (1.8-2.4) Total Bilirubin 0.3 mg/dL (0.2-1.0) Aspartate Amino Transferase (AST) 22 U/L (15-37) Alanine Aminotransferase (ALT) 19 U/L (16-63) Alkaline Phosphatase 73 U/L (46-116) Troponin I Quantitative < 0.017 ng/mL (0-0.055) Total Protein 6.7 g/dL (6.4-8.2) Albumin 3.2 g/dL (3.4-5.0) L Albumin/Globulin Ratio 0.9 (1.0-1.7) L Salicylates Level 0.6 mg/dL (2.8-20.0) L Salicylate Last Dose Date 06/18/17 Salicylate Last Dose Time Unknown Urine Opiates Screen Neg (NEG) Urine Methadone Screen Neg (NEG) Acetaminophen Level < 2.0 mcg/mL (10-30) L Acetaminophen Last Dose Date 06/18/17 Acetaminophen Last Dose Time Unknown Urine Barbiturates Neg (NEG) Urine Phencyclidine Screen Neg (NEG) Urine Amphetamine/Methamphetamine Neg (NEG) Urine Benzodiazepines Screen Neg (NEG) Urine Cocaine Screen Neg (NEG) Urine Cannabinoids Screen Neg (NEG) Ethyl Alcohol Level < 10 mg/dL (0-10) Urine Ethyl Alcohol Neg (NEG) EKG EKG Sinus rhythm at 58 beats per minutes with leftward axis no obvious ST elevation or depression and normal T waves and prolonged QTC Radiology/Procedures Radiology/Procedures CT Head W/O Contrast: History: ALTERED MENTAL STATUS, PSYCH EVAL Comparison: none Axial images were obtained without contrast. There is marked diffuse atrophy. There is no mass effect, extraaxial fluid collections or hydrocephalus. There is no focal loss of suarez-white matter distinction to suggest acute ischemia, i.e. stroke. Impression: No acute findings. PQRS Compliance Statement: One or more of the following individualized dose reduction techniques were utilized for this examination: 1. Automated exposure control 2. Adjustment of the mA and/or kV according to patient size 3. Use of iterative reconstruction technique Electronically signed by: Kristin Messina III, MD (06/18/2017 9:53 PM) [facility] DICTATED AND SIGNED BY: KRISTIN MESSINA III, MD DATE: 06/18/172145 Course & Med Decision Making Course & Med Decision Making Patient is pleasantly confused in the emergency department and he has no medical complaints and he is medically cleared from my standpoint. Patient accepted by the geriatric psychiatry floor for further evaluation and treatment. Dragon Disclaimer Dragon Disclaimer This electronic medical record was generated, in whole or in part, using a voice recognition dictation system. Departure Departure: Impression: Primary Impression: Mild cognitive disorder Additional Impression: Impulse control disorder Disposition: 09 ADMITTED INPATIENT Admitting Physician: Other Condition: STABLE Referrals: PCP,NO (PCP) Problem Qualifiers FANNIE BASURTO DO Jun 18, 2017 22:45
[2017-06-18 23:03] LABS: BILIRUBIN,URINE NEG (NEG); CLARITY,URINE CLEAR; COLOR,URINE YELLOW; GLUCOSE,URINE NEG (NEG); NITRITE,URINE NEG (NEG); UROBILINOGEN,URINE 0.2 mg/dL (0.2 mg/dL)
[2017-06-18 23:05] LABS: BACTERIA,URINE 0 /HPF (0-FEW); RBC,URINE OCC /HPF (0-2)
--- NOTE | 2017-06-19 00:03 | NUR ---
CALLED SPECIALIST EARLY CHILDHOOD LEAD TEACHER AT [phone]
--- NOTE | 2017-06-19 00:05 | NUR ---
RECALLED SPECIALIST POSTDOCTORAL RESEARCH FELLOW AT [phone]
[2017-06-19] MEDS ORDERED: ACETAMINOPHEN 325 MG TABLET PO PRN ×2 (04:00→05:30)
[2017-06-19] MEDS ORDERED: MAG HYDROX/AL HYDROX/SIMETH 30 ML ORAL.SUSP PO PRN (04:00)
[2017-06-19] MEDS ORDERED: MAGNESIUM HYDROXIDE 2,400 MG/30 ML ORAL.SUSP. PO PRN (04:00)
--- NOTE | 2017-06-19 04:00 | NUR ---
Admission Note with Justification for Admission to [facility] Patient admitted to [facility] for protective oversight for emergency stabilization of acute psychiatric crisis. Pt admitted from: Home Mode of arrival: EMS Accompanied By: [facility] Staff Precipitating behaviors that initiated intake and admission: Increasing agitation and aggression toward , refusing medications, refusing to eat Description of failure of out patient attempts at stabilization in previous setting list behavior and medication trials: Patient refusing medications and aggressive towards at home. Behaviors and assessment findings upon admission: Patient is calm and compliant with assessment and cares upon arrival. Patient is alert and oriented to Date, Location, Name however patient displays some confusion regarding the reason for his admission. Patient skin assessment shows no wounds or rashes. Patient reports that he always has some pain in his testicles and some pain when defecating R/T hemorrhoid surgery. Patient lung sounds are clear, heart regular and bowels are active. Skin turgor is elastic. Patient is currently resting in bed. Plan: Admit for protective oversight for adjustment and stabilization of medications, behaviors and mood. Intense treatment regimen including groups, medication adjustments, therapy, consistent regimen for ADL's, self care, and sleep hygiene. Daily monitoring by Inpatient staff, Psychiatry, and Medical Physician.
[2017-06-19 04:51] VITALS: BP 161/96
[2017-06-19 06:15] VITALS: BP 153/89
[2017-06-19] MEDS: METOPROLOL TART IMMED RELEASE 25 MG TABLET PO SCH ×2 (08:28→20:21)
[2017-06-19] MEDS: POTASSIUM CHLORIDE 20 MEQ/15 ML ORAL LIQUID. PO SCH (08:28)
[2017-06-19] MEDS: DOCUSATE SODIUM 100 MG CAPSULE PO SCH ×2 (08:28→20:21)
[2017-06-19] MEDS: CHOLECALCIFEROL (VITAMIN D3) 50,000 UNIT CAPSULE PO SCH (08:28)
--- NOTE | 2017-06-19 09:00 | NUR ---
Behavior Intervention Response and Plan: BIRP Note: Behavior: Assumed Care of patient, patient located in Dining Room at shift change. Patient exhibited the following behavior Disorganized, Withdrawn, Interactive. Brief assessment on rounds of vital signs, medication needs, lab studies, and pain. Treatment plan problems 1 & 2. Intervention: Patient assessed and the following interventions initiated safety checks 15 Minute Checks Cognitive Assessment , Head to toe Assessment , Medications. Response: After interactions and interventions patient responded in the following manner, Calm , Appropriate ,Compliant. Continue to assess behaviors and condition will continue to monitor throughout the shift as needed. Patient educated on ADL's, and hand hygiene. Plan: Continue to monitor Master Treatment Plan for patient's progress toward short term goals of Decreased Agitation, No harm To self/ others, vermin exterminator goals to return to previous living setting vs placement. Continue to assess patient for changes in above assessment. Monitor for medication needs, pain, and safety concerns. Hourly rounding performed to ensure safe environment.
[2017-06-19] MEDS: KETOTIFEN FUMARATE 0.025% OPHT SOLUTION BOTTLE. OU SCH ×2 (10:19→20:21)
[2017-06-19] MEDS: FLECAINIDE 50 MG TABLET. PO SCH ×2 (12:36→20:23)
[2017-06-19 16:32] VITALS: BP 106/74
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
--- NOTE | 2017-06-19 17:48 | NUR ---
SW reviewed pt insurance upon admit. Face sheet, csnap and intake state pt's insurance is Medicare A, B, no C as primary and for Life as secondary. No auth required.
--- NOTE | 2017-06-19 18:15 | NUR ---
Activity Therapy Assessment. Patient entered the activities office and introduced himself to the therapist. Patient made eye contact and was able to communicate verbally. Patient discussed where he was from, his name, and was using a walker to be ambulate. 19 Jun 2017 @8229.
[2017-06-19 20:08] LABS: T3 TOTAL 81 ng/dL (71-180); THYROXINE 6.2 ug/dL (4.5-12.0)
--- NOTE | 2017-06-19 20:11 | PDOC ---
Exam Note: Óscar Note: Please also refer to the separate dictated note~for this date of service dictated separately.~Patient seen individually. Discussed the patient with Nursing staff reviewed the chart.~Reviewed interim history and current functioning. Reviewed vital signs,~Labs/ Radiology~and current medications noted below. Continue current treatment with the changes noted in the dictated addendum note Assessment: Vital Signs: Vital Signs Date Time Temp Pulse Resp B/P (MAP) Pulse Ox O2 Delivery O2 Flow Rate FiO2 06/19/17 16:32 97.8 73 18 106/74 (85) 98 06/19/17 04:51 99.0 06/18/17 21:00 Room Air Labs: Laboratory Tests Test 06/18/17 21:44 White Blood Count 5.3 x10^3/uL (4.0-11.0) Red Blood Count 3.87 x10^6/uL (4.30-5.70) L Hemoglobin 12.9 g/dL (13.0-17.5) L Hematocrit 37.5 % (39.0-53.0) L Mean Corpuscular Volume 97 fL (79-100) Mean Corpuscular Hemoglobin 33 pg (25-35) Mean Corpuscular Hemoglobin Concent 34 g/dL (31-37) Red Cell Distribution Width 13.5 % (11.5-14.5) Platelet Count 201 x10^3/uL (140-400) Neutrophils (%) (Auto) 67 % (31-73) Lymphocytes (%) (Auto) 19 % (24-48) L Monocytes (%) (Auto) 11 % (0-9) H Eosinophils (%) (Auto) 3 % (0-3) Basophils (%) (Auto) 1 % (0-3) Neutrophils # (Auto) 3.6 x10^3uL (1.8-7.7) Lymphocytes # (Auto) 1.0 x10^3/uL (1.0-4.8) Monocytes # (Auto) 0.6 x10^3/uL (0.0-1.1) Eosinophils # (Auto) 0.1 x10^3/uL (0.0-0.7) Basophils # (Auto) 0.0 x10^3/uL (0.0-0.2) Urine Collection Type Unknown Urine Color Yellow Urine Clarity Clear Urine pH 5.0 Urine Specific [place] 1.015 Urine Protein Neg (NEG-TRACE) Urine Glucose (UA) Neg mg/dL (NEG) Urine Ketones (Stick) Neg mg/dL (NEG) Urine Blood Neg (NEG) Urine Nitrite Neg (NEG) Urine Bilirubin Neg (NEG) Urine Urobilinogen Dipstick 0.2 mg/dL (0.2 mg/dL) Urine Leukocyte Esterase Neg (NEG) Urine RBC Occ /HPF (0-2) Urine WBC 1-4 /HPF (0-4) Urine Squamous Epithelial Cells None /LPF Urine Bacteria 0 /HPF (0-FEW) Urine Mucus Slight /LPF Sodium Level 141 mmol/L (136-145) Potassium Level 3.7 mmol/L (3.5-5.1) Chloride Level 104 mmol/L (98-107) Carbon Dioxide Level 28 mmol/L (21-32) Anion Gap 9 (6-14) Blood Urea Nitrogen 16 mg/dL (8-26) Creatinine 1.0 mg/dL (0.7-1.3) Estimated GFR (Cockcroft-Gault) 70.7 BUN/Creatinine Ratio 16 (6-20) Glucose Level 150 mg/dL (70-99) H Calcium Level 9.1 mg/dL (8.5-10.1) Magnesium Level 2.0 mg/dL (1.8-2.4) Iron Level 54 ug/dL (65-175) L Total Iron Binding Capacity 367 ug/dL (250-450) Iron Saturation 15 % (15-34) Total Bilirubin 0.3 mg/dL (0.2-1.0) Aspartate Amino Transferase (AST) 22 U/L (15-37) Alanine Aminotransferase (ALT) 19 U/L (16-63) Alkaline Phosphatase 73 U/L (46-116) Troponin I Quantitative < 0.017 ng/mL (0-0.055) Total Protein 6.7 g/dL (6.4-8.2) Albumin 3.2 g/dL (3.4-5.0) L Albumin/Globulin Ratio 0.9 (1.0-1.7) L Triglycerides Level 172 mg/dL (0-150) H Cholesterol Level 208 mg/dL (0-200) H LDL Cholesterol, Calculated 115 mg/dL (0-100) H VLDL Cholesterol, Calculated 34 mg/dL (0-40) Non-HDL Cholesterol Calculated 149 mg/dL (0-129) H HDL Cholesterol 59 mg/dL (40-60) Cholesterol/HDL Ratio 3.0 Vitamin B12 Level 472 pg/mL (247-911) 25-Hydroxy Vitamin D Total 30.8 ng/mL (30-100) Thyroid Stimulating Hormone (TSH) 1.496 uIU/mL (0.358-3.740) Thyroxine (T4) 6.2 ug/dL (4.5-12.0) Total Triiodothyronine (TT3) 81 ng/dL (71-180) Salicylates Level 0.6 mg/dL (2.8-20.0) L Salicylate Last Dose Date 06/18/17 Salicylate Last Dose Time Unknown Urine Opiates Screen Neg (NEG) Urine Methadone Screen Neg (NEG) Acetaminophen Level < 2.0 mcg/mL (10-30) L Acetaminophen Last Dose Date 06/18/17 Acetaminophen Last Dose Time Unknown Urine Barbiturates Neg (NEG) Urine Phencyclidine Screen Neg (NEG) Urine Amphetamine/Methamphetamine Neg (NEG) Urine Benzodiazepines Screen Neg (NEG) Urine Cocaine Screen Neg (NEG) Urine Cannabinoids Screen Neg (NEG) Ethyl Alcohol Level < 10 mg/dL (0-10) Urine Ethyl Alcohol Neg (NEG) Rapid Plasma Reagin Pending Current Medications: Meds: Current Medications Acetaminophen (Tylenol) 650 mg PRN Q6HRS PRN PO PAIN / TEMP; Start 06/19/17 at 04:00; Stop 06/19/17 at 19:17; Status DC Al Hydroxide/Mg Hydroxide (Mylanta Plus Xs) 15 ml PRN AFTMEALHC PRN PO DYSPEPSIA; Start 06/19/17 at 04:00 Magnesium Hydroxide (Milk Of Magnesia) 2,400 mg PRN QHS PRN PO CONSTIPATION; Start 06/19/17 at 04:00 Olanzapine (ZyPREXA ZYDIS) 1.25 mg PRN Q2HR PRN PO PSYCHOSIS; Start 06/19/17 at 04:00 Acetaminophen (Tylenol) 650 mg PRN Q6HRS PRN PO PAIN; Start 06/19/17 at 05:30 Docusate Sodium (Colace) 100 mg BID PO Last administered on 06/19/17t 08:28; Start 06/19/17 at 09:00 Ketotifen Fumarate (Zaditor) 1 drop BID OU Last administered on 06/19/17 10: 19; Start 06/19/17 at 09:00 Metoprolol Tartrate (Lopressor) 25 mg BID PO Last administered on 06/19/17 08 :28; Start 06/19/17 at 09:00 Potassium Chloride (KCl Oral Soln) 20 meq DAILY08 PO Last administered on 06/19 08:28; Start 06/19/17 at 08:00 Tamsulosin HCl (Flomax) 0.4 mg HS PO ; Start 06/19/17 at 21:00 Vitamin D (Vitamin D3) 50,000 unit WEEKLY PO Last administered on 06/19/17 08 :28; Start 06/19/17 at 09:00 Flecainide Acetate (Tambocor) 50 mg Q12HR PO Last administered on 06/19/17 12 :36; Start 06/19/17 at 09:00 Memantine (Namenda) 5 mg DAILY PO ; Start 06/20/17 at 09:00 Quetiapine Fumarate (SEROquel) 12.5 mg QHS PO ; Start 06/19/17 at 21:00 Active Scripts Active Flecainide Acetate 100 Mg Tablet 50 Mg PO Q12HR 90 Days Metoprolol Tartrate 25 Mg Tablet 1 Tab PO BID 90 Days LAST DOSE GIVEN: DATE: TIME: NEXT DOSE DUE: DATE: TIME: Reported Flomax (Tamsulosin Hcl) 0.4 Mg Cap.er.24h 1 Cap PO HS Zaditor (Ketotifen Fumarate) 5 Ml Drops 1 Drop EACHEYE BID Vitamin D3 (Cholecalciferol (Vitamin D3)) 5,000 Unit Tablet 50,000 Unit PO WEEKLY Tylenol (Acetaminophen) 325 Mg Tablet 650 Mg PO PRN Q6HRS PRN Colace (Docusate Sodium) 100 Mg Capsule 1 Cap PO BID Potassium Chloride Oral Liquid (Potassium Chloride) 20 Meq/15 Ml Liquid 20 Meq PEG DAILY LAST DOSE GIVEN: DATE: TIME: NEXT DOSE DUE: DATE: TIME: I have reviewed the current psychotropics carefully including drug interactions. Risk benefit ratio favors no change other than as noted in my dictated progress note. Diagnosis: Problems: (1) Anxiety disorder (2) Mild cognitive disorder (3) Impulse control disorder (4) Major depressive disorder, recurrent episode CHELSEA RINCON MD Jun 19, 2017 20:11
[2017-06-19] MEDS: TAMSULOSIN 0.4 MG CAP.ER.24H. PO SCH (20:21)
[2017-06-19] MEDS ORDERED: QUEtiapine 25 MG TABLET. PO SCH (21:00)
--- NOTE | 2017-06-19 22:51 | HP ---
ADMIT DATE: 06/19/2017 This note covers elements not covered in my initial note of 06/19/2017. IDENTIFYING DATA: The patient is an 87-year-old male who is referred to us from the Emergency Room at [facility] where he presented with his family on account of increasing agitation, aggression, verbally abusive. He was previously discharged from [facility] on 06/18/2017, refusing his medications, refusing to eat, threatening to his . He has had sleep and appetite changes. Behaviors have been unmanageable and referred for inpatient psychiatric stabilization. He has been confused, increasingly depressed. He is referred by Dr. Marli Gaines, his primary care physician. CHIEF COMPLAINT: "I need to get home." HISTORY OF PRESENT ILLNESS: The patient has a history of major depressive disorder, impulse control disorder, anxiety disorder and worsening confusion. He was here briefly about a month back and reportedly has been at [facility] as well recently. He appeared more confused, delusional, agitated with marked mood lability, worsening symptoms of depression. Behaviors have been deemed dangerous at the home. No clear symptoms of bipolar disorder. No active suicidal or homicidal ideation. PAST PSYCHIATRIC HISTORY: As above. MEDICAL HISTORY: Positive for syncope, atrial fibrillation, PSVT, diabetes mellitus, chronic constipation, BPH, hypertension, hyperlipidemia. Accu-Cheks daily. Diet is regular. Ambulates ad linwood with walker. CODE STATUS: Full code. CURRENT PSYCHOTROPICS: Namenda 5 mg daily, Seroquel 12.5 mg at bedtime, is being started. While in the Emergency Room at [facility], he was seen by the tele medicine psychiatry service and recommended for inpatient psychiatric stabilization. FAMILY HISTORY: Noncontributory. SOCIAL HISTORY: The patient lives at home with his . No alcohol or drug abuse, physical, sexual or elder abuse history is noted. Not known to be a perpetrator. ASSETS: Supportive family. ALLERGIES: Bimatoprost, lisinopril, meclofenamic acid. FAMILY HISTORY: Noncontributory. SOCIAL HISTORY: No alcohol, drug abuse, physical, sexual or elder abuse. Not known to be a perpetrator. MENTAL STATUS EXAMINATION: The patient was seen individually evening of 06/19/2017. He is oriented to himself, situation at times. Speech coherent, abstraction fair, computation impaired, language function intact, attention span short. Mood and affect appears depressed, anxious, somewhat labile. LABORATORY DATA: Reviewed. PLAN: Further adjustments as clinically indicated. MAN Huan RINCON MD DR: SHAZIA/shanta JOB#: [id number] / [id number]
--- NOTE | 2017-06-19 23:02 | NUR ---
Behavior Intervention Response and Plan: BIRP Note: Behavior: Assumed Care of patient, patient located in Hallway at shift change. Patient exhibited the following behavior Calm, Withdrawn, Disorganized. Brief assessment on rounds of vital signs, medication needs, lab studies, and pain. Treatment plan problems 1 and 2. Intervention: Patient assessed and the following interventions initiated safety checks 15 Minute Checks Cognitive Assessment , Head to toe Assessment , Medications. Response: After interactions and interventions patient responded in the following manner, Calm , Compliant ,Cooperative. Continue to assess behaviors and condition will continue to monitor throughout the shift as needed. Patient educated on ADL's, and hand hygiene. 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 Continue to assess patient for changes in above assessment. Monitor for medication needs, pain, and safety concerns. Hourly rounding performed to ensure safe environment.
[2017-06-20 01:07] LABS: HEMOGLOBIN A1C 5.3 % (4.8-5.6)
[2017-06-20 05:52] VITALS: BP 116/59
[2017-06-20] MEDS: POTASSIUM CHLORIDE 20 MEQ/15 ML ORAL LIQUID. PO SCH (07:59)
[2017-06-20] MEDS: METOPROLOL TART IMMED RELEASE 25 MG TABLET PO SCH ×3 (07:59→20:54)
[2017-06-20] MEDS: DOCUSATE SODIUM 100 MG CAPSULE PO SCH ×3 (07:59→20:53)
[2017-06-20] MEDS: FLECAINIDE 50 MG TABLET. PO SCH ×3 (07:59→21:00)
[2017-06-20] MEDS: MEMANTINE 5 MG TABLET. PO SCH ×2 (08:00→09:00)
[2017-06-20] MEDS: KETOTIFEN FUMARATE 0.025% OPHT SOLUTION BOTTLE. OU SCH ×3 (08:00→21:00)
--- NOTE | 2017-06-20 08:45 | NUR ---
Patient refusing to eat, drink, or take meds at this time. Will attempt to provide meds at a later time
--- NOTE | 2017-06-20 08:45 | NUR ---
Behavior Intervention Response and Plan: BIRP Note: Behavior: Assumed Care of patient, patient located in Dining Room at shift change. Patient exhibited the following behavior Withdrawn, Non Compliant with Meds, Disorganized. Brief assessment on rounds of vital signs, medication needs, lab studies, and pain. Treatment plan problems 1 & 2. Intervention: Patient assessed and the following interventions initiated safety checks 15 Minute Checks Cognitive Assessment , Head to toe Assessment , Medications. Response: After interactions and interventions patient responded in the following manner, Calm , Appropriate ,Cooperative. Continue to assess behaviors and condition will continue to monitor throughout the shift as needed. Patient educated on ADL's, and hand hygiene. 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 Continue to assess patient for changes in above assessment. Monitor for medication needs, pain, and safety concerns. Hourly rounding performed to ensure safe environment.
--- NOTE | 2017-06-20 10:00 | NUR ---
Patient still refusing to take morning meds. Will monitor for behaviours.
--- NOTE | 2017-06-20 13:24 | NUR ---
TOI has attempted to talk w/pt. 2 different times today, the first being during breakfast and then again later in the morning while sitting in the day room. Pt. looked at SW briefly, but then refused to answer, nod or provide any kind of answer . TOI will attempt to write down the request to contact pt's dtr to proceed w/planning for dc.
[2017-06-20 16:54] VITALS: BP 104/63
--- NOTE | 2017-06-20 17:36 | NUR ---
Patient has been standing in place in the dayroom since lunchtime. patient shuffles his feet, and fidgets with his hands a tthimes, otherwise he does not move from the spot in the day room. He does not answer any questions, has not spoken all day, and refuses all foods, drinks, and medicines. Patient becomes extremely agitated during attempts to place him in a wheelchair or remove him from the day room. Will monitor for additional behaviors and report to .
[2017-06-20] MEDS: TAMSULOSIN 0.4 MG CAP.ER.24H. PO SCH (20:53)
[2017-06-20] MEDS: risperiDONE ORAL 1 MG/ML 30ml BOTTLE. SL SCH (21:00)
--- NOTE | 2017-06-20 23:59 | NUR ---
Behavior Intervention Response and Plan: BIRP Note: Behavior: Assumed Care of patient, patient located in Day Room at shift change. Patient exhibited the following behavior Non Compliant, Resistive, Delusions. Brief assessment on rounds of vital signs, medication needs, lab studies, and pain. Treatment plan problems 1-2. Intervention: Patient assessed and the following interventions initiated safety checks 15 Minute Checks Cognitive Assessment , Head to toe Assessment , Medications. Response: After interactions and interventions patient responded in the following manner, Withdrawn , Anxious ,Delusions. Continue to assess behaviors and condition will continue to monitor throughout the shift as needed. Patient educated on ADL's, and hand hygiene. 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 Continue to assess patient for changes in above assessment. Monitor for medication needs, pain, and safety concerns. Hourly rounding performed to ensure safe environment.
[2017-06-21 06:18] VITALS: BP 153/83
[2017-06-21] MEDS: POTASSIUM CHLORIDE 20 MEQ/15 ML ORAL LIQUID. PO SCH (08:00)
[2017-06-21] MEDS: DOCUSATE SODIUM 100 MG CAPSULE PO SCH ×2 (08:29→20:52)
[2017-06-21] MEDS: KETOTIFEN FUMARATE 0.025% OPHT SOLUTION BOTTLE. OU SCH ×2 (08:29→20:51)
[2017-06-21] MEDS: FLECAINIDE 50 MG TABLET. PO SCH ×2 (08:30→20:53)
[2017-06-21] MEDS: METOPROLOL TART IMMED RELEASE 25 MG TABLET PO SCH ×2 (08:30→20:52)
[2017-06-21] MEDS: MEMANTINE 5 MG TABLET. PO SCH (08:30)
--- NOTE | 2017-06-21 10:32 | PDOC ---
Exam Note: Óscar Note: This is late entry for date of service 06/20/2017.Please also refer to the separate dictated note~for this date of service dictated separately.~Patient seen individually. Discussed the patient with Nursing staff reviewed the chart.~ Reviewed interim history and current functioning. Reviewed vital signs,~Labs/ Radiology~and current medications noted below. Continue current treatment with the changes noted in the dictated addendum note Assessment: Vital Signs: VS - Last 72 Hours, by Label Date Time Temp Pulse Resp B/P (MAP) Pulse Ox O2 Delivery O2 Flow Rate FiO2 06/21/17 08:30 70 153/83 06/21/17 08:30 70 153/83 06/21/17 06:18 97.2 70 16 153/83 (106) 99 06/20/17 20:54 52 104/63 06/20/17 16:54 98.0 52 16 104/63 (77) 95 Room Air 06/20/17 05:52 98.0 59 16 116/59 (78) 100 Room Air 06/19/17 20:23 67 119/73 06/19/17 20:21 67 119/73 06/19/17 16:32 97.8 73 18 106/74 (85) 98 06/19/17 12:36 60 153/89 06/19/17 08:28 60 153/89 06/19/17 06:15 97.7 60 18 153/89 (110) 96 06/19/17 04:51 98.2 62 161/96 (117) 99.0 06/18/17 21:00 97.4 64 20 98 Room Air Vital Signs Date Time Temp Pulse Resp B/P (MAP) Pulse Ox O2 Delivery O2 Flow Rate FiO2 06/21/17 08:30 70 153/83 06/21/17 06:18 97.2 16 99 06/20/17 16:54 Room Air 06/19/17 04:51 99.0 I&O Intake and Output 06/21/17 07:00 Intake Total 0 ml Balance 0 ml Intake Oral 0 ml Current Medications: Meds: Current Medications Acetaminophen (Tylenol) 650 mg PRN Q6HRS PRN PO PAIN / TEMP; Start 06/19/17 at 04:00; Stop 06/19/17 at 19:17; Status DC Al Hydroxide/Mg Hydroxide (Mylanta Plus Xs) 15 ml PRN AFTMEALHC PRN PO DYSPEPSIA; Start 06/19/17 at 04:00 Magnesium Hydroxide (Milk Of Magnesia) 2,400 mg PRN QHS PRN PO CONSTIPATION; Start 06/19/17 at 04:00 Olanzapine (ZyPREXA ZYDIS) 1.25 mg PRN Q2HR PRN PO PSYCHOSIS; Start 06/19/17 at 04:00 Acetaminophen (Tylenol) 650 mg PRN Q6HRS PRN PO PAIN; Start 06/19/17 at 05:30 Docusate Sodium (Colace) 100 mg BID PO Last administered on 06/20/17 20:53; Start 06/19/17 at 09:00 Ketotifen Fumarate (Zaditor) 1 drop BID OU Last administered on 06/19/17 20: 21; Start 06/19/17 at 09:00 Metoprolol Tartrate (Lopressor) 25 mg BID PO Last administered on 06/19/17 20 :21; Start 06/19/17 at 09:00 Potassium Chloride (KCl Oral Soln) 20 meq DAILY08 PO Last administered on 06/20 07:59; Start 06/19/17 at 08:00 Tamsulosin HCl (Flomax) 0.4 mg HS PO Last administered on 06/20/17 20:53; Start 06/19/17 at 21:00 Vitamin D (Vitamin D3) 50,000 unit WEEKLY PO Last administered on 06/19/17 08 :28; Start 06/19/17 at 09:00 Flecainide Acetate (Tambocor) 50 mg Q12HR PO Last administered on 06/19/17 20 :23; Start 06/19/17 at 09:00 Memantine (Namenda) 5 mg DAILY PO ; Start 06/20/17 at 09:00 Quetiapine Fumarate (SEROquel) 12.5 mg QHS PO Last administered on 06/19/17 20:22; Start 06/19/17 at 21:00; Stop 06/20/17 at 19:25; Status DC Risperidone (RisperDAL) 0.25 mg QHS SL ; Start 06/20/17 at 21:00 Fluoxetine HCl (PROzac) 10 mg DAILY PO ; Start 06/21/17 at 09:00 Active Scripts Active Flecainide Acetate 100 Mg Tablet 50 Mg PO Q12HR 90 Days Metoprolol Tartrate 25 Mg Tablet 1 Tab PO BID 90 Days LAST DOSE GIVEN: DATE: TIME: NEXT DOSE DUE: DATE: TIME: Reported Flomax (Tamsulosin Hcl) 0.4 Mg Cap.er.24h 1 Cap PO HS Zaditor (Ketotifen Fumarate) 5 Ml Drops 1 Drop EACHEYE BID Vitamin D3 (Cholecalciferol (Vitamin D3)) 5,000 Unit Tablet 50,000 Unit PO WEEKLY Tylenol (Acetaminophen) 325 Mg Tablet 650 Mg PO PRN Q6HRS PRN Colace (Docusate Sodium) 100 Mg Capsule 1 Cap PO BID Potassium Chloride Oral Liquid (Potassium Chloride) 20 Meq/15 Ml Liquid 20 Meq PEG DAILY LAST DOSE GIVEN: DATE: TIME: NEXT DOSE DUE: DATE: TIME: I have reviewed the current psychotropics carefully including drug interactions. Risk benefit ratio favors no change other than as noted in my dictated progress note. Diagnosis: Problems: (1) Anxiety disorder (2) Mild cognitive disorder (3) Impulse control disorder (4) Major depressive disorder, recurrent episode CHELSEA RINCON MD Jun 21, 2017 10:32
--- NOTE | 2017-06-21 11:22 | NUR ---
Behavior Intervention Response and Plan: BIRP Note: Behavior: Assumed Care of patient, patient located in Patient Room at shift change. Patient exhibited the following behavior Withdrawn, Non Compliant, Resistive. Brief assessment on rounds of vital signs, medication needs, lab studies, and pain. Treatment plan problems . Intervention: Patient assessed and the following interventions initiated safety checks 15 Minute Checks Cognitive Assessment , Head to toe Assessment , Medications. Response: After interactions and interventions patient responded in the following manner, Non Compliant , Calm ,Withdrawn. Continue to assess behaviors and condition will continue to monitor throughout the shift as needed. Patient educated on ADL's, and hand hygiene. 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 Continue to assess patient for changes in above assessment. Monitor for medication needs, pain, and safety concerns. Hourly rounding performed to ensure safe environment.
[2017-06-21 16:39] VITALS: BP 136/84
--- NOTE | 2017-06-21 18:33 | NUR ---
pt refused to get up for meals. pt brought down to supper with resistance. drank 1/2 boost. has refused medication. keeps eyes closed.
--- NOTE | 2017-06-21 20:30 | NUR ---
Nursing Note: Call placed to pt daughter, Allison, as requested by Dr. Porter. Spoke with daughter requesting a member of the family be present at meal times in order to attempt to encourage pt to eat and drink as he is currently refusing to do so. Allison stated that she was out of town currently, her mother is unable to do so due to her age/health, but that she was going to contact her brother to see if he would be willing to do so.
[2017-06-21] MEDS: TAMSULOSIN 0.4 MG CAP.ER.24H. PO SCH (20:52)
[2017-06-21] MEDS: risperiDONE ORAL 1 MG/ML 30ml BOTTLE. SL SCH (20:53)
--- NOTE | 2017-06-21 21:00 | NUR ---
Nursing Note: Pt refused all HS medications, refused to answer any questions. Attempted to give pt sips of water, pt opened his mouth, however, pt let water run out.
--- NOTE | 2017-06-21 21:46 | PDOC ---
Exam Note: Óscar Note: Please also refer to the separate dictated note~for this date of service dictated separately.~Patient seen individually. Discussed the patient with Nursing staff reviewed the chart.~Reviewed interim history and current functioning. Reviewed vital signs,~Labs/ Radiology~and current medications noted below. Continue current treatment with the changes noted in the dictated addendum note Assessment: Vital Signs: Vital Signs Date Time Temp Pulse Resp B/P (MAP) Pulse Ox O2 Delivery O2 Flow Rate FiO2 06/21/17 20:53 73 136/84 06/21/17 16:39 96.8 16 97 06/20/17 16:54 Room Air 06/19/17 04:51 99.0 I&O Intake and Output 06/21/17 07:00 Intake Total 0 ml Balance 0 ml Intake Oral 0 ml Current Medications: Meds: Current Medications Acetaminophen (Tylenol) 650 mg PRN Q6HRS PRN PO PAIN / TEMP; Start 06/19/17 at 04:00; Stop 06/19/17 at 19:17; Status DC Al Hydroxide/Mg Hydroxide (Mylanta Plus Xs) 15 ml PRN AFTMEALHC PRN PO DYSPEPSIA; Start 06/19/17 at 04:00 Magnesium Hydroxide (Milk Of Magnesia) 2,400 mg PRN QHS PRN PO CONSTIPATION; Start 06/19/17 at 04:00 Olanzapine (ZyPREXA ZYDIS) 1.25 mg PRN Q2HR PRN PO PSYCHOSIS; Start 06/19/17 at 04:00 Acetaminophen (Tylenol) 650 mg PRN Q6HRS PRN PO PAIN; Start 06/19/17 at 05:30 Docusate Sodium (Colace) 100 mg BID PO Last administered on 06/20/17 20:53; Start 06/19/17 at 09:00 Ketotifen Fumarate (Zaditor) 1 drop BID OU Last administered on 06/19/17 20: 21; Start 06/19/17 at 09:00 Metoprolol Tartrate (Lopressor) 25 mg BID PO Last administered on 06/19/17 20 :21; Start 06/19/17 at 09:00 Potassium Chloride (KCl Oral Soln) 20 meq DAILY08 PO Last administered on 06/20 07:59; Start 06/19/17 at 08:00 Tamsulosin HCl (Flomax) 0.4 mg HS PO Last administered on 06/20/17 20:53; Start 06/19/17 at 21:00 Vitamin D (Vitamin D3) 50,000 unit WEEKLY PO Last administered on 06/19/17 08 :28; Start 06/19/17 at 09:00 Flecainide Acetate (Tambocor) 50 mg Q12HR PO Last administered on 06/19/17 20 :23; Start 06/19/17 at 09:00 Memantine (Namenda) 5 mg DAILY PO ; Start 06/20/17 at 09:00 Quetiapine Fumarate (SEROquel) 12.5 mg QHS PO Last administered on 06/19/17 20:22; Start 06/19/17 at 21:00; Stop 06/20/17 at 19:25; Status DC Risperidone (RisperDAL) 0.25 mg QHS SL ; Start 06/20/17 at 21:00 Fluoxetine HCl (PROzac) 10 mg DAILY PO ; Start 06/21/17 at 09:00 Active Scripts Active Flecainide Acetate 100 Mg Tablet 50 Mg PO Q12HR 90 Days Metoprolol Tartrate 25 Mg Tablet 1 Tab PO BID 90 Days LAST DOSE GIVEN: DATE: TIME: NEXT DOSE DUE: DATE: TIME: Reported Flomax (Tamsulosin Hcl) 0.4 Mg Cap.er.24h 1 Cap PO HS Zaditor (Ketotifen Fumarate) 5 Ml Drops 1 Drop EACHEYE BID Vitamin D3 (Cholecalciferol (Vitamin D3)) 5,000 Unit Tablet 50,000 Unit PO WEEKLY Tylenol (Acetaminophen) 325 Mg Tablet 650 Mg PO PRN Q6HRS PRN Colace (Docusate Sodium) 100 Mg Capsule 1 Cap PO BID Potassium Chloride Oral Liquid (Potassium Chloride) 20 Meq/15 Ml Liquid 20 Meq PEG DAILY LAST DOSE GIVEN: DATE: TIME: NEXT DOSE DUE: DATE: TIME: I have reviewed the current psychotropics carefully including drug interactions. Risk benefit ratio favors no change other than as noted in my dictated progress note. Diagnosis: Problems: (1) Anxiety disorder (2) Mild cognitive disorder (3) Impulse control disorder (4) Major depressive disorder, recurrent episode CHELSEA RINCON MD Jun 21, 2017 21:45
--- NOTE | 2017-06-21 22:20 | NUR ---
Behavior Intervention Response and Plan: BIRP Note: Behavior: Assumed Care of patient, patient located in Day Room at shift change. Patient exhibited the following behavior Withdrawn, Non Compliant with Meds, Resistive. Brief assessment on rounds of vital signs, medication needs, lab studies, and pain. Treatment plan problems 1 and 2. Intervention: Patient assessed and the following interventions initiated safety checks 15 Minute Checks Cognitive Assessment , Head to toe Assessment , Medications. Response: After interactions and interventions patient responded in the following manner, Resistive , Withdrawn ,Non Compliant with Meds. Continue to assess behaviors and condition will continue to monitor throughout the shift as needed. Patient educated on ADL's, and hand hygiene. Plan: Continue to monitor Master Treatment Plan for patient's progress toward short term goals of Decreased Agitation, Improved Mood, intermediate goals to return to previous living setting vs placement. Continue to assess patient for changes in above assessment. Monitor for medication needs, pain, and safety concerns. Hourly rounding performed to ensure safe environment.
[2017-06-22 03:19] VITALS: BP 158/87
--- NOTE | 2017-06-22 05:00 | NUR ---
Nursing Note: Pt c/o headache this morning. PRN Tylenol administered as ordered, pt compliant w/meds and took several sips of water as well.
[2017-06-22 05:51] VITALS: BP 149/77
[2017-06-22] MEDS: MEMANTINE 5 MG TABLET. PO SCH ×2 (07:42→09:00)
[2017-06-22] MEDS: POTASSIUM CHLORIDE 20 MEQ/15 ML ORAL LIQUID. PO SCH ×2 (07:42→08:00)
[2017-06-22] MEDS: DOCUSATE SODIUM 100 MG CAPSULE PO SCH ×3 (07:42→20:22)
[2017-06-22] MEDS: FLECAINIDE 50 MG TABLET. PO SCH ×3 (07:43→20:23)
[2017-06-22] MEDS: METOPROLOL TART IMMED RELEASE 25 MG TABLET PO SCH ×3 (07:43→20:23)
[2017-06-22] MEDS: KETOTIFEN FUMARATE 0.025% OPHT SOLUTION BOTTLE. OU SCH ×3 (07:44→20:24)
--- NOTE | 2017-06-22 09:03 | PN ---
DATE: 06/20/2017 This is a late entry for 06/20/2017 and covers elements not covered in my initial note of 06/20/2017. I met with the patient in the evening of 06/20/2017. Slept 6-1/2 hours. Appetite is poor. He almost appeared catatonic, not verbally interactive. Refused to speak as I met with him. REVIEW OF SYSTEMS: Ambulation impaired, with a walker. No CV, , pulmonary, eye system symptoms on review. Reliability poor. MENTAL STATUS EXAM: Difficult to assess his orientation. Speech is not verbal at all. Associations loose, language function intact, attention span short. Mood and affect extremely depressed, psychotic. LABORATORY DATA: Reviewed. IMPRESSION: Major depressive disorder with psychotic features. Rest unchanged. PLAN: Change Seroquel to liquid Risperdal 0.25 mg at bedtime. Consider other psychotropics, liquids for ease of administration. Adjust as clinically indicated. CHELSEA RINCON MD DR: SHAZIA/shanta JOB#: [id number] / [id number]
--- NOTE | 2017-06-22 09:12 | PN ---
DATE: 06/21/2017 PSYCHIATRIC PROGRESS NOTE This note covers elements not covered in my initial note 06/21/2017. SUBJECTIVE: The patient has had no oral intake, just half a boost during the whole day. Nursing staff will call the family and see if they are able to visit him during mealtimes to help feed him since he might have a better intake from them. REVIEW OF SYSTEMS: Ambulation impaired. He is oblivious of his surroundings, staring off, not responding verbally. MENTAL STATUS EXAM: Abstraction fair, computation impaired, language function intact, attention span short. Mood and affect depressed. LABORATORY DATA: Reviewed. IMPRESSION: Major depressive disorder, recurrent, severe with psychotic features; cognitive disorder, unspecified. Rest unchanged. PLAN: Continue psychotropics mentioned in my initial note just as indicated. MAN Huan RINCON MD DR: SHAZIA/shanta JOB#: [id number] / [id number]
[2017-06-22 09:49] LABS: BASO % 0 % (0-3); EOS % 1 % (0-3); HEMATOCRIT 40.8 % (39.0-53.0); HEMOGLOBIN 13.9 g/dL (13.0-17.5); LYMPH # 1.3 x10^3/uL (1.0-4.8); LYMPH % 23 % (24-48); MEAN CORPUSCULAR HEMOGLOBIN 33 pg (25-35); MEAN CORPUSCULAR HGB CONC 34 g/dL (31-37); MEAN CORPUSCULAR VOLUME 97 fL (79-100); MONO # 0.5 x10^3/uL (0.0-1.1); MONO % 8 % (0-9); NEUT # 3.8 x10^3uL (1.8-7.7); NEUT % 68 % (31-73); PLATELET COUNT 231 x10^3/uL (140-400); RED BLOOD COUNT 4.22 x10^6/uL (4.30-5.70); RED CELL DISTRIBUTION WIDTH 13.4 % (11.5-14.5); WHITE BLOOD COUNT 5.6 x10^3/uL (4.0-11.0)
--- NOTE | 2017-06-22 09:56 | NUR ---
Behavior Intervention Response and Plan: BIRP Note: Behavior: Assumed Care of patient, patient located in Patient Room at shift change. Patient exhibited the following behavior Withdrawn, Non Compliant, Resistive. Brief assessment on rounds of vital signs, medication needs, lab studies, and pain. Treatment plan problems . Intervention: Patient assessed and the following interventions initiated safety checks 15 Minute Checks Cognitive Assessment , Head to toe Assessment , Medications. Response: After interactions and interventions patient responded in the following manner, Non Compliant , Calm ,Withdrawn. Continue to assess behaviors and condition will continue to monitor throughout the shift as needed. Patient educated on ADL's, and hand hygiene. 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 Continue to assess patient for changes in above assessment. Monitor for medication needs, pain, and safety concerns. Hourly rounding performed to ensure safe environment.
[2017-06-22 10:10] LABS: ALBUMIN 3.3 g/dL (3.4-5.0); ALBUMIN/GLOBULIN RATIO 0.9 (1.0-1.7); CALCIUM 9.5 mg/dL (8.5-10.1); CREATININE 0.7 mg/dL (0.7-1.3); GFR 106.7; POTASSIUM 3.8 mmol/L (3.5-5.1); TOTAL BILIRUBIN 0.4 mg/dL (0.2-1.0); TOTAL PROTEIN 6.8 g/dL (6.4-8.2)
[2017-06-22 16:08] VITALS: BP 145/96
--- NOTE | 2017-06-22 18:24 | NUR ---
Son came at noon to encourage pt to eat. unable to get him to eat anything. Did take communion in afternoon. at supper when nurse asked him if he wanted hospice pt stated "NO". when asked why he won't eat stated he can't swallow. will inform in am.
--- NOTE | 2017-06-22 20:15 | PDOC ---
Exam Note: Óscar Note: Please also refer to the separate dictated note~for this date of service dictated separately.~Patient seen individually. Discussed the patient with Nursing staff reviewed the chart.~Reviewed interim history and current functioning. Reviewed vital signs,~Labs/ Radiology~and current medications noted below. Continue current treatment with the changes noted in the dictated addendum note Assessment: Vital Signs: Vital Signs Date Time Temp Pulse Resp B/P (MAP) Pulse Ox O2 Delivery O2 Flow Rate FiO2 06/22/17 16:08 97.8 92 18 145/96 (112) 98 06/22/17 03:19 Room Air 06/19/17 04:51 99.0 I&O Intake and Output 06/22/17 07:00 Intake Total 240 ml Balance 240 ml Intake Oral 240 ml Labs: Laboratory Tests Test 06/22/17 09:11 White Blood Count 5.6 x10^3/uL (4.0-11.0) Red Blood Count 4.22 x10^6/uL (4.30-5.70) L Hemoglobin 13.9 g/dL (13.0-17.5) Hematocrit 40.8 % (39.0-53.0) Mean Corpuscular Volume 97 fL (79-100) Mean Corpuscular Hemoglobin 33 pg (25-35) Mean Corpuscular Hemoglobin Concent 34 g/dL (31-37) Red Cell Distribution Width 13.4 % (11.5-14.5) Platelet Count 231 x10^3/uL (140-400) Neutrophils (%) (Auto) 68 % (31-73) Lymphocytes (%) (Auto) 23 % (24-48) L Monocytes (%) (Auto) 8 % (0-9) Eosinophils (%) (Auto) 1 % (0-3) Basophils (%) (Auto) 0 % (0-3) Neutrophils # (Auto) 3.8 x10^3uL (1.8-7.7) Lymphocytes # (Auto) 1.3 x10^3/uL (1.0-4.8) Monocytes # (Auto) 0.5 x10^3/uL (0.0-1.1) Eosinophils # (Auto) 0.0 x10^3/uL (0.0-0.7) Basophils # (Auto) 0.0 x10^3/uL (0.0-0.2) Sodium Level 141 mmol/L (136-145) Potassium Level 3.8 mmol/L (3.5-5.1) Chloride Level 103 mmol/L (98-107) Carbon Dioxide Level 22 mmol/L (21-32) Anion Gap 16 (6-14) H Blood Urea Nitrogen 14 mg/dL (8-26) Creatinine 0.7 mg/dL (0.7-1.3) Estimated GFR (Cockcroft-Gault) 106.7 BUN/Creatinine Ratio 20 (6-20) Glucose Level 85 mg/dL (70-99) Calcium Level 9.5 mg/dL (8.5-10.1) Total Bilirubin 0.4 mg/dL (0.2-1.0) Aspartate Amino Transferase (AST) 18 U/L (15-37) Alanine Aminotransferase (ALT) 18 U/L (16-63) Alkaline Phosphatase 75 U/L (46-116) Total Protein 6.8 g/dL (6.4-8.2) Albumin 3.3 g/dL (3.4-5.0) L Albumin/Globulin Ratio 0.9 (1.0-1.7) L Current Medications: Meds: Current Medications Acetaminophen (Tylenol) 650 mg PRN Q6HRS PRN PO PAIN / TEMP; Start 06/19/17 at 04:00; Stop 06/19/17 at 19:17; Status DC Al Hydroxide/Mg Hydroxide (Mylanta Plus Xs) 15 ml PRN AFTMEALHC PRN PO DYSPEPSIA; Start 06/19/17 at 04:00 Magnesium Hydroxide (Milk Of Magnesia) 2,400 mg PRN QHS PRN PO CONSTIPATION; Start 06/19/17 at 04:00 Olanzapine (ZyPREXA ZYDIS) 1.25 mg PRN Q2HR PRN PO PSYCHOSIS; Start 06/19/17 at 04:00 Acetaminophen (Tylenol) 650 mg PRN Q6HRS PRN PO PAIN Last administered on 06/22 04:58; Start 06/19/17 at 05:30 Docusate Sodium (Colace) 100 mg BID PO Last administered on 06/20/17 20:53; Start 06/19/17 at 09:00 Ketotifen Fumarate (Zaditor) 1 drop BID OU Last administered on 06/19/17 20: 21; Start 06/19/17 at 09:00 Metoprolol Tartrate (Lopressor) 25 mg BID PO Last administered on 06/19/17 20 :21; Start 06/19/17 at 09:00 Potassium Chloride (KCl Oral Soln) 20 meq DAILY08 PO Last administered on 06/20 07:59; Start 06/19/17 at 08:00 Tamsulosin HCl (Flomax) 0.4 mg HS PO Last administered on 06/20/17 20:53; Start 06/19/17 at 21:00 Vitamin D (Vitamin D3) 50,000 unit WEEKLY PO Last administered on 06/19/17 08 :28; Start 06/19/17 at 09:00 Flecainide Acetate (Tambocor) 50 mg Q12HR PO Last administered on 06/19/17 20 :23; Start 06/19/17 at 09:00 Memantine (Namenda) 5 mg DAILY PO ; Start 06/20/17 at 09:00 Quetiapine Fumarate (SEROquel) 12.5 mg QHS PO Last administered on 06/19/17 20:22; Start 06/19/17 at 21:00; Stop 06/20/17 at 19:25; Status DC Risperidone (RisperDAL) 0.25 mg QHS SL ; Start 06/20/17 at 21:00 Fluoxetine HCl (PROzac) 10 mg DAILY PO ; Start 06/21/17 at 09:00 Active Scripts Active Flecainide Acetate 100 Mg Tablet 50 Mg PO Q12HR 90 Days Metoprolol Tartrate 25 Mg Tablet 1 Tab PO BID 90 Days LAST DOSE GIVEN: DATE: TIME: NEXT DOSE DUE: DATE: TIME: Reported Flomax (Tamsulosin Hcl) 0.4 Mg Cap.er.24h 1 Cap PO HS Zaditor (Ketotifen Fumarate) 5 Ml Drops 1 Drop EACHEYE BID Vitamin D3 (Cholecalciferol (Vitamin D3)) 5,000 Unit Tablet 50,000 Unit PO WEEKLY Tylenol (Acetaminophen) 325 Mg Tablet 650 Mg PO PRN Q6HRS PRN Colace (Docusate Sodium) 100 Mg Capsule 1 Cap PO BID Potassium Chloride Oral Liquid (Potassium Chloride) 20 Meq/15 Ml Liquid 20 Meq PEG DAILY LAST DOSE GIVEN: DATE: TIME: NEXT DOSE DUE: DATE: TIME: I have reviewed the current psychotropics carefully including drug interactions. Risk benefit ratio favors no change other than as noted in my dictated progress note. Diagnosis: Problems: (1) Cardiac syncope (2) Syncopal episodes (3) PSVT (paroxysmal supraventricular tachycardia) (4) Weakness (5) Anxiety disorder (6) Mild cognitive disorder (7) Impulse control disorder (8) Major depressive disorder, recurrent episode CHELSEA RINCON MD Jun 22, 2017 20:15
[2017-06-22] MEDS: TAMSULOSIN 0.4 MG CAP.ER.24H. PO SCH (20:22)
[2017-06-22] MEDS: risperiDONE ORAL 1 MG/ML 30ml BOTTLE. SL SCH (20:23)
--- NOTE | 2017-06-22 23:35 | NUR ---
Behavior Intervention Response and Plan: BIRP Note: Behavior: Assumed Care of patient, patient located in Day Room at shift change. Patient exhibited the following behavior Cooperative, Compliant, Calm. Brief assessment on rounds of vital signs, medication needs, lab studies, and pain. Treatment plan problems 1-2. Intervention: Patient assessed and the following interventions initiated safety checks 15 Minute Checks Cognitive Assessment , Head to toe Assessment , Medications. Response: After interactions and interventions patient responded in the following manner, Compliant , Cooperative ,Withdrawn. Continue to assess behaviors and condition will continue to monitor throughout the shift as needed. Patient educated on ADL's, and hand hygiene. 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 Continue to assess patient for changes in above assessment. Monitor for medication needs, pain, and safety concerns. Hourly rounding performed to ensure safe environment.
[2017-06-23 06:36] VITALS: BP 114/75
[2017-06-23] MEDS: DOCUSATE SODIUM 100 MG CAPSULE PO SCH ×2 (08:02→19:29)
[2017-06-23] MEDS: POTASSIUM CHLORIDE 20 MEQ/15 ML ORAL LIQUID. PO SCH (08:02)
[2017-06-23] MEDS: MEMANTINE 5 MG TABLET. PO SCH (08:02)
[2017-06-23] MEDS: METOPROLOL TART IMMED RELEASE 25 MG TABLET PO SCH ×2 (08:03→19:29)
[2017-06-23] MEDS: FLECAINIDE 50 MG TABLET. PO SCH ×2 (08:06→19:29)
[2017-06-23] MEDS: KETOTIFEN FUMARATE 0.025% OPHT SOLUTION BOTTLE. OU SCH ×2 (08:06→19:30)
--- NOTE | 2017-06-23 08:20 | NUR ---
Behavior Intervention Response and Plan: BIRP Note: Behavior: Assumed Care of patient, patient located in Dining Room at shift change. Patient exhibited the following behavior Disorganized, Withdrawn, Interactive. Brief assessment on rounds of vital signs, medication needs, lab studies, and pain. Treatment plan problems 1 & 2. Intervention: Patient assessed and the following interventions initiated safety checks 15 Minute Checks Cognitive Assessment , Head to toe Assessment , Medications. Response: After interactions and interventions patient responded in the following manner, Calm , Appropriate ,Compliant. Continue to assess behaviors and condition will continue to monitor throughout the shift as needed. Patient educated on ADL's, and hand hygiene. Plan: Continue to monitor Master Treatment Plan for patient's progress toward short term goals of Decreased Anxiety, No harm To self/ others, senior living goals to return to previous living setting vs placement. Continue to assess patient for changes in above assessment. Monitor for medication needs, pain, and safety concerns. Hourly rounding performed to ensure safe environment.
--- NOTE | 2017-06-23 15:45 | NUR ---
Jaya Butt Admitted: 19 Jun 2017 Assessment: 23 Jun 2017 Activity Therapy Assessment: Patient was lying in his bed during the assessment. He was awake and alert and made eye contact throughout the assessment. Patient can recall past events and family however he did know some information like his exact birthdate. Patient spends most of his time in his room or isolated within the hallways. Patient can communicate however at times he may be quiet. Patient shows little interest in groups and stated he will not fell like participating in groups until he can contact some of his family. Patient uses a walker to ambulate. Initial Treatment Goals: To participate in 1 group per week.
[2017-06-23 16:01] VITALS: BP 113/68
--- NOTE | 2017-06-23 17:16 | NUR ---
SW verified w/medical records no previous DPOA paperwork from previous stay in 05/2017. Current chart states pt is a self-sign. SW contacted pt's son, Jaya Rich regarding dc plans. Pt. verified pt is in fact a self sign. SW inquired about family pursuing Guardianship of Pt. and Pt's son was not aware of any plans. TOI stated pt would not be forced to dc to a NH since he is his own person and likely would not agree to not returning home. TOI also asked about financials as it does not appear Pt. has Medicaid. SW asked about a retirement care policy or savings/assets. Pt's son stated he did not have funds for placement, but that he couldn't return home. TOI again stated w/o Guardianship, SW could not compel pt. to dc to a NH. Pt's son asked this SW to contact his sister to further discuss the Medicaid as he thought she may have started to complete the form. Again, TOI stated pt. would have to sign the document before it could be turned in complete. TOI will follow up in the am.
[2017-06-23] MEDS: risperiDONE ORAL 1 MG/ML 30ml BOTTLE. SL SCH (19:29)
[2017-06-23] MEDS: TAMSULOSIN 0.4 MG CAP.ER.24H. PO SCH (19:29)
--- NOTE | 2017-06-23 20:05 | PDOC ---
Exam Note: Óscar Note: Please also refer to the separate dictated note~for this date of service dictated separately.~Patient seen individually. Discussed the patient with Nursing staff reviewed the chart.~Reviewed interim history and current functioning. Reviewed vital signs,~Labs/ Radiology~and current medications noted below. Continue current treatment with the changes noted in the dictated addendum note Assessment: Vital Signs: Vital Signs Date Time Temp Pulse Resp B/P (MAP) Pulse Ox O2 Delivery O2 Flow Rate FiO2 06/23/17 19:29 70 113/68 06/23/17 16:01 97.7 18 97 06/22/17 03:19 Room Air 06/19/17 04:51 99.0 I&O Intake and Output 06/23/17 07:00 Intake Total 600 ml Balance 600 ml Intake Oral 600 ml # Voids 2 Labs: Laboratory Tests Test 06/22/17 20:07 Group A Streptococcus Rapid Negative (NEGATIVE) Current Medications: Meds: Current Medications Acetaminophen (Tylenol) 650 mg PRN Q6HRS PRN PO PAIN / TEMP; Start 06/19/17 at 04:00; Stop 06/19/17 at 19:17; Status DC Al Hydroxide/Mg Hydroxide (Mylanta Plus Xs) 15 ml PRN AFTMEALHC PRN PO DYSPEPSIA; Start 06/19/17 at 04:00 Magnesium Hydroxide (Milk Of Magnesia) 2,400 mg PRN QHS PRN PO CONSTIPATION; Start 06/19/17 at 04:00 Olanzapine (ZyPREXA ZYDIS) 1.25 mg PRN Q2HR PRN PO PSYCHOSIS; Start 06/19/17 at 04:00 Acetaminophen (Tylenol) 650 mg PRN Q6HRS PRN PO PAIN Last administered on 06/22 04:58; Start 06/19/17 at 05:30 Docusate Sodium (Colace) 100 mg BID PO Last administered on 06/23/17 19:29; Start 06/19/17 at 09:00 Ketotifen Fumarate (Zaditor) 1 drop BID OU Last administered on 06/23/17 19: 30; Start 06/19/17 at 09:00 Metoprolol Tartrate (Lopressor) 25 mg BID PO Last administered on 06/23/17 19 :29; Start 06/19/17 at 09:00 Potassium Chloride (KCl Oral Soln) 20 meq DAILY08 PO Last administered on 06/23 08:02; Start 06/19/17 at 08:00 Tamsulosin HCl (Flomax) 0.4 mg HS PO Last administered on 06/23/17 19:29; Start 06/19/17 at 21:00 Vitamin D (Vitamin D3) 50,000 unit WEEKLY PO Last administered on 06/19/17 08 :28; Start 06/19/17 at 09:00 Flecainide Acetate (Tambocor) 50 mg Q12HR PO Last administered on 06/23/17 19 :29; Start 06/19/17 at 09:00 Memantine (Namenda) 5 mg DAILY PO Last administered on 06/23/17 08:02; Start 06/20/17 at 09:00 Quetiapine Fumarate (SEROquel) 12.5 mg QHS PO Last administered on 06/19/17 20:22; Start 06/19/17 at 21:00; Stop 06/20/17 at 19:25; Status DC Risperidone (RisperDAL) 0.25 mg QHS SL Last administered on 06/23/17 19:29; Start 06/20/17 at 21:00 Fluoxetine HCl (PROzac) 10 mg DAILY PO Last administered on 06/23/17 08:06; Start 06/21/17 at 09:00 Active Scripts Active Flecainide Acetate 100 Mg Tablet 50 Mg PO Q12HR 90 Days Metoprolol Tartrate 25 Mg Tablet 1 Tab PO BID 90 Days LAST DOSE GIVEN: DATE: TIME: NEXT DOSE DUE: DATE: TIME: Reported Flomax (Tamsulosin Hcl) 0.4 Mg Cap.er.24h 1 Cap PO HS Zaditor (Ketotifen Fumarate) 5 Ml Drops 1 Drop EACHEYE BID Vitamin D3 (Cholecalciferol (Vitamin D3)) 5,000 Unit Tablet 50,000 Unit PO WEEKLY Tylenol (Acetaminophen) 325 Mg Tablet 650 Mg PO PRN Q6HRS PRN Colace (Docusate Sodium) 100 Mg Capsule 1 Cap PO BID Potassium Chloride Oral Liquid (Potassium Chloride) 20 Meq/15 Ml Liquid 20 Meq PEG DAILY LAST DOSE GIVEN: DATE: TIME: NEXT DOSE DUE: DATE: TIME: I have reviewed the current psychotropics carefully including drug interactions. Risk benefit ratio favors no change other than as noted in my dictated progress note. Diagnosis: Problems: (1) Anxiety disorder (2) Mild cognitive disorder (3) Impulse control disorder (4) Major depressive disorder, recurrent episode CHELSEA RINCON MD Jun 23, 2017 20:05
--- NOTE | 2017-06-23 21:29 | NUR ---
Behavior Intervention Response and Plan: BIRP Note: Behavior: Assumed Care of patient, patient located in Patient Room at shift change. Patient exhibited the following behavior Calm, Cooperative, Withdrawn. Brief assessment on rounds of vital signs, medication needs, lab studies, and pain. Treatment plan problems 1 and 2. Intervention: Patient assessed and the following interventions initiated safety checks 15 Minute Checks Cognitive Assessment , Head to toe Assessment , Medications. Response: After interactions and interventions patient responded in the following manner, Calm , Compliant ,Cooperative. Continue to assess behaviors and condition will continue to monitor throughout the shift as needed. Patient educated on ADL's, and hand hygiene. Plan: Continue to monitor Master Treatment Plan for patient's progress toward short term goals of Decreased Aggression, Improved Mood, director long term care goals to return to previous living setting vs placement. Continue to assess patient for changes in above assessment. Monitor for medication needs, pain, and safety concerns. Hourly rounding performed to ensure safe environment.
[2017-06-24 06:24] VITALS: BP 106/65
--- NOTE | 2017-06-24 07:25 | PN ---
DATE: 06/22/2017 This is a late entry for 06/22/2017 and covers the elements not covered in my initial note of 06/22/2017. SUBJECTIVE: I met with the patient in the evening of 06/22/2017. The patient complains of sore throat and gives this as the reason that he is unable to eat. He has had no oral intake, noncompliant with medications. Son was here to help feed lunch, did not eat much, took communion, does not want hospice. He states he cannot swallow. We did do a strep test and I will defer it to Dr. Ochoa. REVIEW OF SYSTEMS: Positive for poor appetite, tiredness. No CV, , pulmonary, eye system symptoms on review. Reliability poor. MENTAL STATUS EXAM: Oriented to himself. Insight limited, judgment marginal, language function intact, attention span short. Mood and affect is depressed, somewhat paranoid. No active suicidal or homicidal ideation. LABORATORY DATA: Reviewed. IMPRESSION: Major depressive disorder, recurrent with psychotic features; cognitive disorder, unspecified. Rest unchanged. PLAN: Continue psychotropics mentioned in my initial note. Adjust further as clinically indicated. MAN Huan RINCON MD DR: SHAZIA/shanta JOB#: [id number] / [id number]
[2017-06-24] MEDS: POTASSIUM CHLORIDE 20 MEQ/15 ML ORAL LIQUID. PO SCH ×2 (08:00→09:48)
[2017-06-24] MEDS: FLECAINIDE 50 MG TABLET. PO SCH ×3 (09:00→20:19)
[2017-06-24] MEDS: MEMANTINE 5 MG TABLET. PO SCH ×2 (09:00→09:47)
[2017-06-24] MEDS: DOCUSATE SODIUM 100 MG CAPSULE PO SCH ×3 (09:00→20:19)
[2017-06-24] MEDS: KETOTIFEN FUMARATE 0.025% OPHT SOLUTION BOTTLE. OU SCH ×3 (09:00→20:19)
[2017-06-24] MEDS: METOPROLOL TART IMMED RELEASE 25 MG TABLET PO SCH ×3 (09:00→20:19)
--- NOTE | 2017-06-24 09:57 | NUR ---
Patient appears catatonic this AM when staff went to assist him out of bed. Patient has eyes open, but will not respond to staff verbally; VS taken and WNL: 129/[id number]% RA-99.1. Staff assisted him to dining room for breakfast, but he would not eat or drink or answer any questions. Patient now in day room sitting in w/c, staring ahead of him, still not responding to this nurse. Nurse attempted to administer medication, but he is not cooperating at this time, will continue to monitor. Addendum: 06/24/17 at 1256 by JOVANI BARRETT RN Patient continues to be non-verbal with staff, appears depressed, flat affect. He will not take any medications after multiple attempts. Nurse attempted offering patient other foods and fluids i.e. soup, hot tea, ice cream, but patient continues to refuse anything PO, will continue to monitor.
--- NOTE | 2017-06-24 10:15 | NUR ---
TOI contacted Pt's dtr, Allison, regarding dc plans as Pt. is a self sign, but not safe to return home. Allison stated there is not currently DPOA or Guardianship paperwork the family started after previous admit to this facility in 05/2017. TOI stated this would be required if family did not want pt to return home due to safety concerns. TOI also asked about Medicaid and verified the pt and pt's does not have a financial means to pay for a facility. Allison stated her mother, pt's , did not want the government to become involved in her financial affairs as she does not want the government to take her house away. TOI attempted to explain how Medicaid works w/dividing assets for pt's to be able to remain in the home and pt to enter a NH. TOI stated pt's would need to decide if she would like for pt to return home due to lack of financials and Guardianship, or to move forward w/Guardianship and apply for Medicaid. Allison stated she would be talking w/her mother today as dc planning needs to begin. It should be noted all of the above issues were previously discussed by TOI upon admit to this facility in 05/2017. It appears family has not pursued the issues since dc. SW will continue to follow up w/family to ensure there is progress towards dc plans.
--- NOTE | 2017-06-24 10:51 | NUR ---
Behavior Intervention Response and Plan: BIRP Note: Behavior: Assumed Care of patient, patient located in Day Room at shift change. Patient exhibited the following behavior Non Compliant, Withdrawn, Non Compliant with Meds. Brief assessment on rounds of vital signs, medication needs, lab studies, and pain. Treatment plan problems . Intervention: Patient assessed and the following interventions initiated safety checks 15 Minute Checks Cognitive Assessment , Head to toe Assessment , Oral Hydration. Response: After interactions and interventions patient responded in the following manner, Calm , Withdrawn ,Non Compliant with Meds. Continue to assess behaviors and condition will continue to monitor throughout the shift as needed. Patient educated on ADL's, and hand hygiene. Plan: Continue to monitor Master Treatment Plan for patient's progress toward short term goals of Decreased Anxiety, Decreased Aggression, shelter goals to return to previous living setting vs placement. Continue to assess patient for changes in above assessment. Monitor for medication needs, pain, and safety concerns. Hourly rounding performed to ensure safe environment.
[2017-06-24 15:41] VITALS: BP 143/88
--- NOTE | 2017-06-24 17:31 | NUR ---
Granddaughter visited patient during evening time and was concerned about patient. Nurse explained his behaviors today versus yesterday. Granddaughter attempted to get patient to take his medications and drink some fluids, but he refused, and would only nod or shake his head. Dr. bowling notified and new orders received see SEP.
--- NOTE | 2017-06-24 20:09 | PDOC ---
Exam Note: Óscar Note: Please also refer to the separate dictated note~for this date of service dictated separately.~Patient seen individually. Discussed the patient with Nursing staff reviewed the chart.~Reviewed interim history and current functioning. Reviewed vital signs,~Labs/ Radiology~and current medications noted below. Continue current treatment with the changes noted in the dictated addendum note Assessment: Vital Signs: Vital Signs Date Time Temp Pulse Resp B/P (MAP) Pulse Ox O2 Delivery O2 Flow Rate FiO2 06/24/17 15:41 97.4 68 18 143/88 (106) 98 06/22/17 03:19 Room Air 06/19/17 04:51 99.0 I&O Intake and Output 06/24/17 07:00 Intake Total 1320 ml Balance 1320 ml Intake Oral 1320 ml Current Medications: Meds: Current Medications Acetaminophen (Tylenol) 650 mg PRN Q6HRS PRN PO PAIN / TEMP; Start 06/19/17 at 04:00; Stop 06/19/17 at 19:17; Status DC Al Hydroxide/Mg Hydroxide (Mylanta Plus Xs) 15 ml PRN AFTMEALHC PRN PO DYSPEPSIA; Start 06/19/17 at 04:00 Magnesium Hydroxide (Milk Of Magnesia) 2,400 mg PRN QHS PRN PO CONSTIPATION; Start 06/19/17 at 04:00 Olanzapine (ZyPREXA ZYDIS) 1.25 mg PRN Q2HR PRN PO PSYCHOSIS; Start 06/19/17 at 04:00 Acetaminophen (Tylenol) 650 mg PRN Q6HRS PRN PO PAIN Last administered on 06/22 04:58; Start 06/19/17 at 05:30 Docusate Sodium (Colace) 100 mg BID PO Last administered on 06/23/17 19:29; Start 06/19/17 at 09:00 Ketotifen Fumarate (Zaditor) 1 drop BID OU Last administered on 06/23/17 19: 30; Start 06/19/17 at 09:00 Metoprolol Tartrate (Lopressor) 25 mg BID PO Last administered on 06/23/17 19 :29; Start 06/19/17 at 09:00 Potassium Chloride (KCl Oral Soln) 20 meq DAILY08 PO Last administered on 06/23 08:02; Start 06/19/17 at 08:00 Tamsulosin HCl (Flomax) 0.4 mg HS PO Last administered on 06/23/17 19:29; Start 06/19/17 at 21:00 Vitamin D (Vitamin D3) 50,000 unit WEEKLY PO Last administered on 06/19/17 08 :28; Start 06/19/17 at 09:00 Flecainide Acetate (Tambocor) 50 mg Q12HR PO Last administered on 06/23/17 19 :29; Start 06/19/17 at 09:00 Memantine (Namenda) 5 mg DAILY PO Last administered on 06/23/17 08:02; Start 06/20/17 at 09:00 Quetiapine Fumarate (SEROquel) 12.5 mg QHS PO Last administered on 06/19/17 20:22; Start 06/19/17 at 21:00; Stop 06/20/17 at 19:25; Status DC Risperidone (RisperDAL) 0.25 mg QHS SL Last administered on 06/23/17 19:29; Start 06/20/17 at 21:00; Stop 06/24/17 at 17:36; Status DC Fluoxetine HCl (PROzac) 10 mg DAILY PO Last administered on 06/23/17 08:06; Start 06/21/17 at 09:00; Stop 06/24/17 at 17:36; Status DC Fluoxetine HCl (PROzac) 20 mg DAILY PO ; Start 06/25/17 at 09:00 Risperidone (RisperDAL) 0.5 mg QHS SL ; Start 06/24/17 at 21:00 Active Scripts Active Flecainide Acetate 100 Mg Tablet 50 Mg PO Q12HR 90 Days Metoprolol Tartrate 25 Mg Tablet 1 Tab PO BID 90 Days LAST DOSE GIVEN: DATE: TIME: NEXT DOSE DUE: DATE: TIME: Reported Flomax (Tamsulosin Hcl) 0.4 Mg Cap.er.24h 1 Cap PO HS Zaditor (Ketotifen Fumarate) 5 Ml Drops 1 Drop EACHEYE BID Vitamin D3 (Cholecalciferol (Vitamin D3)) 5,000 Unit Tablet 50,000 Unit PO WEEKLY Tylenol (Acetaminophen) 325 Mg Tablet 650 Mg PO PRN Q6HRS PRN Colace (Docusate Sodium) 100 Mg Capsule 1 Cap PO BID Potassium Chloride Oral Liquid (Potassium Chloride) 20 Meq/15 Ml Liquid 20 Meq PEG DAILY LAST DOSE GIVEN: DATE: TIME: NEXT DOSE DUE: DATE: TIME: I have reviewed the current psychotropics carefully including drug interactions. Risk benefit ratio favors no change other than as noted in my dictated progress note. Diagnosis: Problems: (1) Anxiety disorder (2) Mild cognitive disorder (3) Impulse control disorder (4) Major depressive disorder, recurrent episode CHELSEA RINCON MD Jun 24, 2017 20:09
[2017-06-24] MEDS: TAMSULOSIN 0.4 MG CAP.ER.24H. PO SCH (20:19)
[2017-06-24] MEDS: risperiDONE ORAL 1 MG/ML 30ml BOTTLE. SL SCH (20:19)
[2017-06-24 21:25] VITALS: BP 136/78
--- NOTE | 2017-06-24 22:06 | NUR ---
Behavior Intervention Response and Plan: BIRP Note: Behavior: Assumed Care of patient, patient located in Patient Room at shift change. Patient exhibited the following behavior Withdrawn, Non Compliant with Meds, Resistive. Brief assessment on rounds of vital signs, medication needs, lab studies, and pain. Treatment plan problems 1 and 2. Intervention: Patient assessed and the following interventions initiated safety checks 15 Minute Checks Head to toe Assessment , Medications , Oral Hydration. Response: After interactions and interventions patient responded in the following manner, Non Compliant with Meds , Drowsy ,Resistive. Continue to assess behaviors and condition will continue to monitor throughout the shift as needed. Patient educated on ADL's, and hand hygiene. Plan: Continue to monitor Master Treatment Plan for patient's progress toward short term goals of Medication Compliance, Improved Mood, terminal operations manager goals to return to previous living setting vs placement. Continue to assess patient for changes in above assessment. Monitor for medication needs, pain, and safety concerns. Hourly rounding performed to ensure safe environment.
[2017-06-25 05:54] VITALS: BP 136/78
--- NOTE | 2017-06-25 06:19 | PN ---
DATE: 06/23/2017 PSYCHIATRIC PROGRESS NOTE This late entry 06/23/2017 covers elements not covered in my initial note of 06/23/2017. I met with the patient in the evening of 06/23/2017. Per nursing report, the patient has done much better, alert, oriented x 3, still withdrawn, but more verbal. His appetite is much better. Streptococcus throat culture was negative, sent to culture, however. Labs are reasonable. REVIEW OF SYSTEMS: Ambulation impaired, in walker. No CV, , pulmonary, eye, ENT system symptoms on review. Much more verbal, interactive, pleasant, smiling as I met with him, quite a change from the day before. MENTAL STATUS EXAM: Abstraction fair, computation impaired, language function intact. Mood and affect showing improvement. No active suicidal or homicidal ideation. LABORATORY DATA: Reviewed. IMPRESSION: Unchanged from initial note, major depressive disorder, recurrent with psychotic features, in partial remission; cognitive disorder, unspecified. PLAN: Continue current psychotropics, Risperdal 0.25 mg at bedtime, Namenda, Prozac, along with Zyprexa p.r.n. MAN Huan RINCON MD DR: SHAZIA/shanta JOB#: [id number] / [id number]
[2017-06-25] MEDS: POTASSIUM CHLORIDE 20 MEQ/15 ML ORAL LIQUID. PO SCH (08:00)
[2017-06-25 08:01] LABS: HEMOGLOBIN 13.2 g/dL (13.0-17.5); RED BLOOD COUNT 4.05 x10^6/uL (4.30-5.70); RED CELL DISTRIBUTION WIDTH 13.4 % (11.5-14.5); WHITE BLOOD COUNT 3.8 x10^3/uL (4.0-11.0)
[2017-06-25 08:11] LABS: ALBUMIN/GLOBULIN RATIO 0.9 (1.0-1.7); CALCIUM 9.2 mg/dL (8.5-10.1); CREATININE 0.8 mg/dL (0.7-1.3); GFR 91.4; POTASSIUM 3.3 mmol/L (3.5-5.1); TOTAL BILIRUBIN 0.4 mg/dL (0.2-1.0); TOTAL PROTEIN 6.3 g/dL (6.4-8.2)
[2017-06-25] MEDS: MEMANTINE 5 MG TABLET. PO SCH (09:00)
[2017-06-25] MEDS: KETOTIFEN FUMARATE 0.025% OPHT SOLUTION BOTTLE. OU SCH ×2 (09:00→20:09)
[2017-06-25] MEDS: FLECAINIDE 50 MG TABLET. PO SCH ×2 (09:00→20:35)
[2017-06-25] MEDS: DOCUSATE SODIUM 100 MG CAPSULE PO SCH ×2 (09:00→20:09)
[2017-06-25] MEDS: METOPROLOL TART IMMED RELEASE 25 MG TABLET PO SCH ×2 (09:00→20:34)
--- NOTE | 2017-06-25 10:00 | NUR ---
Behavior Intervention Response and Plan: BIRP Note: Behavior: Assumed Care of patient, patient located in Dining Room at shift change. Patient exhibited the following behavior Disorganized, Compliant, Cooperative. Brief assessment on rounds of vital signs, medication needs, lab studies, and pain. Treatment plan problems . Intervention: Patient assessed and the following interventions initiated safety checks 15 Minute Checks Cognitive Assessment , Head to toe Assessment , Medications. Response: After interactions and interventions patient responded in the following manner, Calm , Cooperative ,Drowsy. Continue to assess behaviors and condition will continue to monitor throughout the shift as needed. Patient educated on ADL's, and hand hygiene. Plan: Continue to monitor Master Treatment Plan for patient's progress toward short term goals of Decreased Anxiety, Medication Compliance, meterman goals to return to previous living setting vs placement. Continue to assess patient for changes in above assessment. Monitor for medication needs, pain, and safety concerns. Hourly rounding performed to ensure safe environment.
--- NOTE | 2017-06-25 15:00 | NUR ---
WEEKLY THERAPEUTIC RECREATION NOTE Date of Admission: 06/19/2017 Date of AT Assessment: 06/23/2017 Goal aimed: to increase time management and leisure awareness Initial goal: Pt. will participate in at least one group a week. Weekly progress towards goal: did not meet Group participation level: Zero participation, besides a few coffee groups. Behaviors observed: Pt. alternates between days of alertness (able to carry conversations) and days of absence (not responding to staff, staring blankly) Plan: no changes towards goal
[2017-06-25 15:38] VITALS: BP 118/76
--- NOTE | 2017-06-25 17:27 | NUR ---
SW observed pt ambulating w/his walker in the hallway. SW stopped to talk w/pt and he has refused to communicate w/SW up to this point. Pt very talkative, stating he was hungry. SW offered pt a snack and observed pt actually eating the snack. SW provided pt w/positive feedback regarding being up and out of bed and talking w/staff.
[2017-06-25] MEDS: TAMSULOSIN 0.4 MG CAP.ER.24H. PO SCH (20:09)
[2017-06-25] MEDS: risperiDONE ORAL 1 MG/ML 30ml BOTTLE. SL SCH (20:10)
[2017-06-25 20:33] VITALS: BP 106/70
--- NOTE | 2017-06-25 21:26 | PDOC ---
Exam Note: Óscar Note: Please also refer to the separate dictated note~for this date of service dictated separately.~Patient seen individually. Discussed the patient with Nursing staff reviewed the chart.~Reviewed interim history and current functioning. Reviewed vital signs,~Labs/ Radiology~and current medications noted below. Continue current treatment with the changes noted in the dictated addendum note Assessment: Vital Signs: Vital Signs Date Time Temp Pulse Resp B/P (MAP) Pulse Ox O2 Delivery O2 Flow Rate FiO2 06/25/17 20:35 70 106/70 06/25/17 20:33 18 Room Air 06/25/17 15:38 97.6 98 I&O Intake and Output 06/25/17 07:00 Intake Total 0 ml Balance 0 ml Intake Oral 0 ml Labs: Laboratory Tests Test 06/25/17 07:33 White Blood Count 3.8 x10^3/uL (4.0-11.0) L Red Blood Count 4.05 x10^6/uL (4.30-5.70) L Hemoglobin 13.2 g/dL (13.0-17.5) Hematocrit 39.0 % (39.0-53.0) Mean Corpuscular Volume 96 fL (79-100) Mean Corpuscular Hemoglobin 33 pg (25-35) Mean Corpuscular Hemoglobin Concent 34 g/dL (31-37) Red Cell Distribution Width 13.4 % (11.5-14.5) Platelet Count 194 x10^3/uL (140-400) Sodium Level 139 mmol/L (136-145) Potassium Level 3.3 mmol/L (3.5-5.1) L Chloride Level 101 mmol/L (98-107) Carbon Dioxide Level 29 mmol/L (21-32) Anion Gap 9 (6-14) Blood Urea Nitrogen 11 mg/dL (8-26) Creatinine 0.8 mg/dL (0.7-1.3) Estimated GFR (Cockcroft-Gault) 91.4 BUN/Creatinine Ratio 14 (6-20) Glucose Level 185 mg/dL (70-99) H Calcium Level 9.2 mg/dL (8.5-10.1) Total Bilirubin 0.4 mg/dL (0.2-1.0) Aspartate Amino Transferase (AST) 17 U/L (15-37) Alanine Aminotransferase (ALT) 17 U/L (16-63) Alkaline Phosphatase 64 U/L (46-116) Total Protein 6.3 g/dL (6.4-8.2) L Albumin 3.0 g/dL (3.4-5.0) L Albumin/Globulin Ratio 0.9 (1.0-1.7) L Current Medications: Meds: Current Medications Acetaminophen (Tylenol) 650 mg PRN Q6HRS PRN PO PAIN / TEMP; Start 06/19/17 at 04:00; Stop 06/19/17 at 19:17; Status DC Al Hydroxide/Mg Hydroxide (Mylanta Plus Xs) 15 ml PRN AFTMEALHC PRN PO DYSPEPSIA; Start 06/19/17 at 04:00 Magnesium Hydroxide (Milk Of Magnesia) 2,400 mg PRN QHS PRN PO CONSTIPATION; Start 06/19/17 at 04:00 Olanzapine (ZyPREXA ZYDIS) 1.25 mg PRN Q2HR PRN PO PSYCHOSIS; Start 06/19/17 at 04:00 Acetaminophen (Tylenol) 650 mg PRN Q6HRS PRN PO PAIN Last administered on 06/22 04:58; Start 06/19/17 at 05:30 Docusate Sodium (Colace) 100 mg BID PO Last administered on 06/25/17 20:09; Start 06/19/17 at 09:00 Ketotifen Fumarate (Zaditor) 1 drop BID OU Last administered on 06/25/17 20: 09; Start 06/19/17 at 09:00 Metoprolol Tartrate (Lopressor) 25 mg BID PO Last administered on 06/25/17 09 :00; Start 06/19/17 at 09:00 Potassium Chloride (KCl Oral Soln) 20 meq DAILY08 PO Last administered on 06/25 08:00; Start 06/19/17 at 08:00 Tamsulosin HCl (Flomax) 0.4 mg HS PO Last administered on 06/25/17 20:09; Start 06/19/17 at 21:00 Vitamin D (Vitamin D3) 50,000 unit WEEKLY PO Last administered on 06/19/17 08 :28; Start 06/19/17 at 09:00 Flecainide Acetate (Tambocor) 50 mg Q12HR PO Last administered on 06/25/17 09 :00; Start 06/19/17 at 09:00 Memantine (Namenda) 5 mg DAILY PO Last administered on 06/25/17 09:00; Start 06/20/17 at 09:00 Quetiapine Fumarate (SEROquel) 12.5 mg QHS PO Last administered on 06/19/17 20:22; Start 06/19/17 at 21:00; Stop 06/20/17 at 19:25; Status DC Risperidone (RisperDAL) 0.25 mg QHS SL Last administered on 06/23/17 19:29; Start 06/20/17 at 21:00; Stop 06/24/17 at 17:36; Status DC Fluoxetine HCl (PROzac) 10 mg DAILY PO Last administered on 06/23/17 08:06; Start 06/21/17 at 09:00; Stop 06/24/17 at 17:36; Status DC Fluoxetine HCl (PROzac) 20 mg DAILY PO Last administered on 06/25/17 09:00; Start 06/25/17 at 09:00 Risperidone (RisperDAL) 0.5 mg QHS SL Last administered on 06/25/17 20:10; Start 06/24/17 at 21:00 Active Scripts Active Flecainide Acetate 100 Mg Tablet 50 Mg PO Q12HR 90 Days Metoprolol Tartrate 25 Mg Tablet 1 Tab PO BID 90 Days LAST DOSE GIVEN: DATE: TIME: NEXT DOSE DUE: DATE: TIME: Reported Flomax (Tamsulosin Hcl) 0.4 Mg Cap.er.24h 1 Cap PO HS Zaditor (Ketotifen Fumarate) 5 Ml Drops 1 Drop EACHEYE BID Vitamin D3 (Cholecalciferol (Vitamin D3)) 5,000 Unit Tablet 50,000 Unit PO WEEKLY Tylenol (Acetaminophen) 325 Mg Tablet 650 Mg PO PRN Q6HRS PRN Colace (Docusate Sodium) 100 Mg Capsule 1 Cap PO BID Potassium Chloride Oral Liquid (Potassium Chloride) 20 Meq/15 Ml Liquid 20 Meq PEG DAILY LAST DOSE GIVEN: DATE: TIME: NEXT DOSE DUE: DATE: TIME: I have reviewed the current psychotropics carefully including drug interactions. Risk benefit ratio favors no change other than as noted in my dictated progress note. Diagnosis: Problems: (1) Anxiety disorder (2) Mild cognitive disorder (3) Impulse control disorder (4) Major depressive disorder, recurrent episode CHELSEA RINCON MD Jun 25, 2017 21:26
--- NOTE | 2017-06-25 22:37 | NUR ---
Behavior Intervention Response and Plan: BIRP Note: Behavior: Assumed Care of patient, patient located in Patient Room at shift change. Patient exhibited the following behavior Calm, Withdrawn, Disorganized. Brief assessment on rounds of vital signs, medication needs, lab studies, and pain. Treatment plan problems 1 and 2. Intervention: Patient assessed and the following interventions initiated safety checks 15 Minute Checks Cognitive Assessment , Head to toe Assessment , Medications. Response: After interactions and interventions patient responded in the following manner, Calm , Compliant ,Cooperative. Continue to assess behaviors and condition will continue to monitor throughout the shift as needed. Patient educated on ADL's, and hand hygiene. Plan: Continue to monitor Master Treatment Plan for patient's progress toward short term goals of Decreased Agitation, Decreased Anxiety, jail goals to return to previous living setting vs placement. Continue to assess patient for changes in above assessment. Monitor for medication needs, pain, and safety concerns. Hourly rounding performed to ensure safe environment.
[2017-06-25 22:44] VITALS: BP 95/58
--- NOTE | 2017-06-26 03:16 | PN ---
DATE: 06/24/2017 This late entry 06/24/2017 covers elements not covered in my initial note 06/24/2017. SUBJECTIVE: I met with the patient evening of 06/24/2017 in his room. The patient remains extremely depressed, withdrawn. He is not interactive like he was a day before and he has not had much to eat all day, noncompliant with his medications, reportedly "not a good day" per nursing report. His granddaughter visited, but he did not even interact with her. REVIEW OF SYSTEMS: Ambulation impaired, lying in bed, not very interactive. No CV, , pulmonary, eye system symptoms on review. MENTAL STATUS EXAM: Oriented to himself and situation. Speech moderate latency, often responses monosyllabic. Abstraction fair, computation impaired, language function intact, attention span short. Mood and affect remained depressed. He is paranoid. LABORATORY DATA: Reviewed. IMPRESSION: Major depressive disorder with possible psychotic features; cognitive disorder, unspecified. Rest unchanged from initial note. PLAN: Increase Risperdal from 0.25 mg at bedtime to 0.5 mg at bedtime, increase liquid Prozac from 10 mg a day to 20 mg a day. Maintain Namenda 5 mg daily, Zyprexa p.r.n. Reviewed drug interactions risk/benefit ratio favors no further. MAN Huan RINCON MD DR: SHAZIA/hsanta JOB#: [id number] / [id number]
[2017-06-26 05:45] VITALS: BP 118/78
[2017-06-26] MEDS: DOCUSATE SODIUM 100 MG CAPSULE PO SCH ×2 (08:07→19:41)
[2017-06-26] MEDS: MEMANTINE 5 MG TABLET. PO SCH (08:07)
[2017-06-26] MEDS: FLECAINIDE 50 MG TABLET. PO SCH ×2 (08:07→19:43)
[2017-06-26] MEDS: METOPROLOL TART IMMED RELEASE 25 MG TABLET PO SCH ×2 (08:07→19:41)
[2017-06-26] MEDS: POTASSIUM CHLORIDE 20 MEQ/15 ML ORAL LIQUID. PO SCH (08:08)
[2017-06-26] MEDS: KETOTIFEN FUMARATE 0.025% OPHT SOLUTION BOTTLE. OU SCH ×2 (08:10→21:00)
[2017-06-26] MEDS: CHOLECALCIFEROL (VITAMIN D3) 50,000 UNIT CAPSULE PO SCH (08:12)
--- NOTE | 2017-06-26 11:54 | NUR ---
Behavior Intervention Response and Plan: BIRP Note: Behavior: Assumed Care of patient, patient located in Patient Room at shift change. Patient exhibited the following behavior Interactive, Disorganized, Compliant. Brief assessment on rounds of vital signs, medication needs, lab studies, and pain. Treatment plan problems . Intervention: Patient assessed and the following interventions initiated safety checks 15 Minute Checks Cognitive Assessment , Head to toe Assessment , Medications. Response: After interactions and interventions patient responded in the following manner, Interactive , Non Compliant ,Withdrawn. Continue to assess behaviors and condition will continue to monitor throughout the shift as needed. Patient educated on ADL's, and hand hygiene. 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 Continue to assess patient for changes in above assessment. Monitor for medication needs, pain, and safety concerns. Hourly rounding performed to ensure safe environment.
[2017-06-26 15:59] VITALS: BP 138/85
[2017-06-26] MEDS: TAMSULOSIN 0.4 MG CAP.ER.24H. PO SCH (19:41)
[2017-06-26] MEDS: risperiDONE ORAL 1 MG/ML 30ml BOTTLE. SL SCH (19:43)
--- NOTE | 2017-06-26 20:05 | PDOC ---
Exam Note: Óscar Note: Please also refer to the separate dictated note~for this date of service dictated separately.~Patient seen individually. Discussed the patient with Nursing staff reviewed the chart.~Reviewed interim history and current functioning. Reviewed vital signs,~Labs/ Radiology~and current medications noted below. Continue current treatment with the changes noted in the dictated addendum note Assessment: Vital Signs: Vital Signs Date Time Temp Pulse Resp B/P (MAP) Pulse Ox O2 Delivery O2 Flow Rate FiO2 06/26/17 19:43 71 138/85 06/26/17 15:59 97.4 20 97 Room Air I&O Intake and Output 06/26/17 07:00 Intake Total 960 ml Balance 960 ml Intake Oral 960 ml # Voids 1 # Bowel Movements 1 Current Medications: Meds: Current Medications Acetaminophen (Tylenol) 650 mg PRN Q6HRS PRN PO PAIN / TEMP; Start 06/19/17 at 04:00; Stop 06/19/17 at 19:17; Status DC Al Hydroxide/Mg Hydroxide (Mylanta Plus Xs) 15 ml PRN AFTMEALHC PRN PO DYSPEPSIA; Start 06/19/17 at 04:00 Magnesium Hydroxide (Milk Of Magnesia) 2,400 mg PRN QHS PRN PO CONSTIPATION; Start 06/19/17 at 04:00 Olanzapine (ZyPREXA ZYDIS) 1.25 mg PRN Q2HR PRN PO PSYCHOSIS; Start 06/19/17 at 04:00 Acetaminophen (Tylenol) 650 mg PRN Q6HRS PRN PO PAIN Last administered on 06/22 04:58; Start 06/19/17 at 05:30 Docusate Sodium (Colace) 100 mg BID PO Last administered on 06/26/17 19:41; Start 06/19/17 at 09:00 Ketotifen Fumarate (Zaditor) 1 drop BID OU Last administered on 06/26/17 08: 10; Start 06/19/17 at 09:00 Metoprolol Tartrate (Lopressor) 25 mg BID PO Last administered on 06/26/17 08 :07; Start 06/19/17 at 09:00; Stop 06/26/17 at 18:01; Status DC Potassium Chloride (KCl Oral Soln) 20 meq DAILY08 PO Last administered on 06/26 08:08; Start 06/19/17 at 08:00 Tamsulosin HCl (Flomax) 0.4 mg HS PO Last administered on 06/25/17 20:09; Start 06/19/17 at 21:00; Stop 06/26/17 at 18:02; Status DC Vitamin D (Vitamin D3) 50,000 unit WEEKLY PO Last administered on 06/26/17 08 :12; Start 06/19/17 at 09:00 Flecainide Acetate (Tambocor) 50 mg Q12HR PO Last administered on 06/26/17 19 :43; Start 06/19/17 at 09:00 Memantine (Namenda) 5 mg DAILY PO Last administered on 06/26/17 08:07; Start 06/20/17 at 09:00; Stop 06/26/17 at 10:40; Status DC Quetiapine Fumarate (SEROquel) 12.5 mg QHS PO Last administered on 06/19/17 20:22; Start 06/19/17 at 21:00; Stop 06/20/17 at 19:25; Status DC Risperidone (RisperDAL) 0.25 mg QHS SL Last administered on 06/23/17 19:29; Start 06/20/17 at 21:00; Stop 06/24/17 at 17:36; Status DC Fluoxetine HCl (PROzac) 10 mg DAILY PO Last administered on 06/23/17 08:06; Start 06/21/17 at 09:00; Stop 06/24/17 at 17:36; Status DC Fluoxetine HCl (PROzac) 20 mg DAILY PO Last administered on 06/26/17 08:07; Start 06/25/17 at 09:00 Risperidone (RisperDAL) 0.5 mg QHS SL Last administered on 06/26/17 19:43; Start 06/24/17 at 21:00 Memantine (Namenda) 10 mg DAILY PO ; Start 06/27/17 at 09:00; Stop 06/30/17 at 08:59 Memantine (Namenda) 10 mg BID PO ; Start 06/30/17 at 09:00 Metoprolol Tartrate (Lopressor) 12.5 mg BID PO Last administered on 06/26/17 19:41; Start 06/26/17 at 21:00 Tamsulosin HCl (Flomax) 0.8 mg HS PO Last administered on 06/26/17t 19:41; Start 06/26/17 at 21:00 Active Scripts Active Flecainide Acetate 100 Mg Tablet 50 Mg PO Q12HR 90 Days Metoprolol Tartrate 25 Mg Tablet 1 Tab PO BID 90 Days LAST DOSE GIVEN: DATE: TIME: NEXT DOSE DUE: DATE: TIME: Reported Flomax (Tamsulosin Hcl) 0.4 Mg Cap.er.24h 1 Cap PO HS Zaditor (Ketotifen Fumarate) 5 Ml Drops 1 Drop EACHEYE BID Vitamin D3 (Cholecalciferol (Vitamin D3)) 5,000 Unit Tablet 50,000 Unit PO WEEKLY Tylenol (Acetaminophen) 325 Mg Tablet 650 Mg PO PRN Q6HRS PRN Colace (Docusate Sodium) 100 Mg Capsule 1 Cap PO BID Potassium Chloride Oral Liquid (Potassium Chloride) 20 Meq/15 Ml Liquid 20 Meq PEG DAILY LAST DOSE GIVEN: DATE: TIME: NEXT DOSE DUE: DATE: TIME: I have reviewed the current psychotropics carefully including drug interactions. Risk benefit ratio favors no change other than as noted in my dictated progress note. Diagnosis: Problems: (1) Anxiety disorder (2) Mild cognitive disorder (3) Impulse control disorder (4) Major depressive disorder, recurrent episode CHELSEA RINCON MD Jun 26, 2017 20:05
--- NOTE | 2017-06-27 00:57 | NUR ---
Behavior Intervention Response and Plan: BIRP Note: Behavior: Assumed Care of patient, patient located in Patient Room at shift change. Patient exhibited the following behavior Withdrawn, Compliant, Calm. Brief assessment on rounds of vital signs, medication needs, lab studies, and pain. Treatment plan problems Alteration in Mood and Fall Risk. Intervention: Patient assessed and the following interventions initiated safety checks 15 Minute Checks Cognitive Assessment , Head to toe Assessment , Medications. Response: After interactions and interventions patient responded in the following manner, Calm , Compliant ,Withdrawn. Continue to assess behaviors and condition will continue to monitor throughout the shift as needed. Patient educated on ADL's, and hand hygiene. Plan: Continue to monitor Master Treatment Plan for patient's progress toward short term goals of Decreased Agitation, Medication Compliance, retirement goals to return to previous living setting vs placement. Continue to assess patient for changes in above assessment. Monitor for medication needs, pain, and safety concerns. Hourly rounding performed to ensure safe environment.
[2017-06-27 05:44] VITALS: BP 112/68
[2017-06-27] MEDS: POTASSIUM CHLORIDE 20 MEQ/15 ML ORAL LIQUID. PO SCH (07:48)
[2017-06-27] MEDS: DOCUSATE SODIUM 100 MG CAPSULE PO SCH ×2 (07:48→19:33)
[2017-06-27] MEDS: METOPROLOL TART IMMED RELEASE 25 MG TABLET PO SCH ×2 (07:49→19:33)
[2017-06-27] MEDS: KETOTIFEN FUMARATE 0.025% OPHT SOLUTION BOTTLE. OU SCH ×2 (07:50→19:34)
[2017-06-27] MEDS: FLECAINIDE 50 MG TABLET. PO SCH ×2 (07:51→19:33)
[2017-06-27] MEDS: MEMANTINE 5 MG TABLET. PO SCH (07:51)
--- NOTE | 2017-06-27 11:50 | NUR ---
Behavior Intervention Response and Plan: BIRP Note: Behavior: Assumed Care of patient, patient located in Dining Room at shift change. Patient exhibited the following behavior Withdrawn, Compliant, Calm. Brief assessment on rounds of vital signs, medication needs, lab studies, and pain. Treatment plan problems . Intervention: Patient assessed and the following interventions initiated safety checks 15 Minute Checks Cognitive Assessment , Head to toe Assessment , Medications. Response: After interactions and interventions patient responded in the following manner, Calm , Compliant ,Withdrawn. Continue to assess behaviors and condition will continue to monitor throughout the shift as needed. Patient educated on ADL's, and hand hygiene. 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 Continue to assess patient for changes in above assessment. Monitor for medication needs, pain, and safety concerns. Hourly rounding performed to ensure safe environment.
--- NOTE | 2017-06-27 14:34 | NUR ---
SW Weekly Progress Note Pt has had several "good" days this week, actually speaking w/SW and eating meals. SW contacted pt's son and dtr to further discuss dc plans. Pt is a self sign w/no payer source for a LTC placement. PT's refuses to apply for Medicaid and the children have not pursued Guardianship since pt's admit in 05/2017. TOI told both children pt would have to return home if Guardianship is not established and a payer source is not considered for placement. TOI will follow up w/family early next week.
--- NOTE | 2017-06-27 16:07 | NUR ---
Pt up for meals. has been compliant with meds and cares. withdrawn to room.
[2017-06-27 16:14] VITALS: BP 147/84
[2017-06-27] MEDS: risperiDONE ORAL 1 MG/ML 30ml BOTTLE. SL SCH (19:32)
[2017-06-27] MEDS: TAMSULOSIN 0.4 MG CAP.ER.24H. PO SCH (19:33)
--- NOTE | 2017-06-27 21:59 | NUR ---
Behavior Intervention Response and Plan: BIRP Note: Behavior: Assumed Care of patient, patient located in Patient Room at shift change. Patient exhibited the following behavior Withdrawn, Irritable, Resistive. Brief assessment on rounds of vital signs, medication needs, lab studies, and pain. Treatment plan problems Alteration in Mood and Fall Risk. Intervention: Patient assessed and the following interventions initiated safety checks 15 Minute Checks Cognitive Assessment , Head to toe Assessment , Medications. Response: After interactions and interventions patient responded in the following manner, Resistive, Compliant ,Withdrawn. Continue to assess behaviors and condition will continue to monitor throughout the shift as needed. Patient educated on ADL's, and hand hygiene. 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 Continue to assess patient for changes in above assessment. Monitor for medication needs, pain, and safety concerns. Hourly rounding performed to ensure safe environment.
--- NOTE | 2017-06-27 22:16 | PDOC ---
Exam Note: Óscar Note: Please also refer to the separate dictated note~for this date of service dictated separately.~Patient seen individually. Discussed the patient with Nursing staff reviewed the chart.~Reviewed interim history and current functioning. Reviewed vital signs,~Labs/ Radiology~and current medications noted below. Continue current treatment with the changes noted in the dictated addendum note Assessment: Vital Signs: Vital Signs Date Time Temp Pulse Resp B/P (MAP) Pulse Ox O2 Delivery O2 Flow Rate FiO2 06/27/17 19:33 87 147/84 06/27/17 16:14 97.8 17 96 06/26/17 15:59 Room Air I&O Intake and Output 06/27/17 07:00 Intake Total 1080 ml Balance 1080 ml Intake Oral 1080 ml Current Medications: Meds: Current Medications Acetaminophen (Tylenol) 650 mg PRN Q6HRS PRN PO PAIN / TEMP; Start 06/19/17 at 04:00; Stop 06/19/17 at 19:17; Status DC Al Hydroxide/Mg Hydroxide (Mylanta Plus Xs) 15 ml PRN AFTMEALHC PRN PO DYSPEPSIA; Start 06/19/17 at 04:00 Magnesium Hydroxide (Milk Of Magnesia) 2,400 mg PRN QHS PRN PO CONSTIPATION; Start 06/19/17 at 04:00 Olanzapine (ZyPREXA ZYDIS) 1.25 mg PRN Q2HR PRN PO PSYCHOSIS; Start 06/19/17 at 04:00 Acetaminophen (Tylenol) 650 mg PRN Q6HRS PRN PO PAIN Last administered on 06/22 04:58; Start 06/19/17 at 05:30 Docusate Sodium (Colace) 100 mg BID PO Last administered on 06/27/17 19:33; Start 06/19/17 at 09:00 Ketotifen Fumarate (Zaditor) 1 drop BID OU Last administered on 06/27/17 19: 34; Start 06/19/17 at 09:00 Metoprolol Tartrate (Lopressor) 25 mg BID PO Last administered on 06/26/17 08 :07; Start 06/19/17 at 09:00; Stop 06/26/17 at 18:01; Status DC Potassium Chloride (KCl Oral Soln) 20 meq DAILY08 PO Last administered on 06/27 07:48; Start 06/19/17 at 08:00 Tamsulosin HCl (Flomax) 0.4 mg HS PO Last administered on 06/25/17 20:09; Start 06/19/17 at 21:00; Stop 06/26/17 at 18:02; Status DC Vitamin D (Vitamin D3) 50,000 unit WEEKLY PO Last administered on 06/26/17 08 :12; Start 06/19/17 at 09:00 Flecainide Acetate (Tambocor) 50 mg Q12HR PO Last administered on 06/27/17 19 :33; Start 06/19/17 at 09:00 Memantine (Namenda) 5 mg DAILY PO Last administered on 06/26/17 08:07; Start 06/20/17 at 09:00; Stop 06/26/17 at 10:40; Status DC Quetiapine Fumarate (SEROquel) 12.5 mg QHS PO Last administered on 06/19/17 20:22; Start 06/19/17 at 21:00; Stop 06/20/17 at 19:25; Status DC Risperidone (RisperDAL) 0.25 mg QHS SL Last administered on 06/23/17 19:29; Start 06/20/17 at 21:00; Stop 06/24/17 at 17:36; Status DC Fluoxetine HCl (PROzac) 10 mg DAILY PO Last administered on 06/23/17 08:06; Start 06/21/17 at 09:00; Stop 06/24/17 at 17:36; Status DC Fluoxetine HCl (PROzac) 20 mg DAILY PO Last administered on 06/27/17 07:50; Start 06/25/17 at 09:00; Stop 06/27/17 at 17:51; Status DC Risperidone (RisperDAL) 0.5 mg QHS SL Last administered on 06/27/17 19:32; Start 06/24/17 at 21:00 Memantine (Namenda) 10 mg DAILY PO Last administered on 06/27/17 07:51; Start 06/27/17 at 09:00; Stop 06/30/17 at 08:59 Memantine (Namenda) 10 mg BID PO ; Start 06/30/17 at 09:00 Metoprolol Tartrate (Lopressor) 12.5 mg BID PO Last administered on 06/27/17 19:33; Start 06/26/17 at 21:00 Tamsulosin HCl (Flomax) 0.8 mg HS PO Last administered on 06/27/17 19:33; Start 06/26/17 at 21:00 Fluoxetine HCl (PROzac) 30 mg DAILY PO ; Start 06/28/17 at 09:00 Active Scripts Active Flecainide Acetate 100 Mg Tablet 50 Mg PO Q12HR 90 Days Metoprolol Tartrate 25 Mg Tablet 1 Tab PO BID 90 Days LAST DOSE GIVEN: DATE: TIME: NEXT DOSE DUE: DATE: TIME: Reported Flomax (Tamsulosin Hcl) 0.4 Mg Cap.er.24h 1 Cap PO HS Zaditor (Ketotifen Fumarate) 5 Ml Drops 1 Drop EACHEYE BID Vitamin D3 (Cholecalciferol (Vitamin D3)) 5,000 Unit Tablet 50,000 Unit PO WEEKLY Tylenol (Acetaminophen) 325 Mg Tablet 650 Mg PO PRN Q6HRS PRN Colace (Docusate Sodium) 100 Mg Capsule 1 Cap PO BID Potassium Chloride Oral Liquid (Potassium Chloride) 20 Meq/15 Ml Liquid 20 Meq PEG DAILY LAST DOSE GIVEN: DATE: TIME: NEXT DOSE DUE: DATE: TIME: I have reviewed the current psychotropics carefully including drug interactions. Risk benefit ratio favors no change other than as noted in my dictated progress note. Diagnosis: Problems: (1) Anxiety disorder (2) Mild cognitive disorder (3) Impulse control disorder (4) Major depressive disorder, recurrent episode CHELSEA RINCON MD Jun 27, 2017 22:16
--- NOTE | 2017-06-28 00:37 | PN ---
DATE: 06/25/2017 This is a late entry 06/25, covers elements not covered in my initial note 06/25. I met with the patient in the evening of 06/25. The patient has been more interactive, which is a big change from the day before. He has been eating better as well. REVIEW OF SYSTEMS: Ambulation impaired, with a walker. No CV, , pulmonary, eye system symptoms on review. MENTAL STATUS EXAM: Oriented to himself and situation. Speech moderate latency, often responses monosyllabic. Abstraction fair, computation impaired, language function intact, attention span short. Mood and affect showing some improvement, less psychotic, less catatonic. LABORATORY DATA: Reviewed. IMPRESSION: Major depressive disorder with psychotic features; cognitive disorder, unspecified. Rest unchanged. PLAN: Continue psychotropics mentioned in my initial note including the increased Risperdal 0.5 mg at bedtime. Adjust as clinically indicated. MAN Huan RINCON MD DR: SHAZIA/shanta JOB#: [id number] / [id number]
--- NOTE | 2017-06-28 01:00 | PN ---
DATE: 06/26/2017 This is a late entry for 06/26/2017 covers elements not covered in my initial note of 06/26/2017, SUBJECTIVE: The patient was staffed at treatment team meeting with the entire team in the morning of 06/26/2017 seen individually in the evening of 06/26/2017. Overall, the patient has been calmer, eating and drinking better, more interactive, which is a change for him. REVIEW OF SYSTEMS: Ambulation impaired with walker. No CV, , pulmonary, eye, ENT system symptoms on review. MENTAL STATUS EXAM: Reasonably oriented. Speech is coherent, abstraction fair, computation impaired, language function intact. Mood and affect is improved. LABORATORY DATA: Reviewed. IMPRESSION: Major depressive disorder with psychotic features in partial remission; cognitive disorder, unspecified. Rest unchanged from initial note. PLAN: Increase Namenda from 5 mg daily to 10 mg a day for 3 days, then 10 mg twice a day. Continue Prozac and Risperdal at current dosage. Adjust further as clinically indicated. MAN Huan RINCON MD DR: SHAZIA/shanta JOB#: [id number] / [id number]
[2017-06-28 05:35] VITALS: BP 132/78
[2017-06-28] MEDS: DOCUSATE SODIUM 100 MG CAPSULE PO SCH ×2 (07:27→19:41)
[2017-06-28] MEDS: POTASSIUM CHLORIDE 20 MEQ/15 ML ORAL LIQUID. PO SCH (07:27)
[2017-06-28] MEDS: METOPROLOL TART IMMED RELEASE 25 MG TABLET PO SCH ×2 (07:28→19:42)
[2017-06-28] MEDS: MEMANTINE 5 MG TABLET. PO SCH (07:28)
[2017-06-28] MEDS: FLECAINIDE 50 MG TABLET. PO SCH ×2 (07:29→19:42)
[2017-06-28] MEDS: KETOTIFEN FUMARATE 0.025% OPHT SOLUTION BOTTLE. OU SCH ×2 (07:29→19:41)
--- NOTE | 2017-06-28 11:17 | NUR ---
Behavior Intervention Response and Plan: BIRP Note: Behavior: Assumed Care of patient, patient located in Dining Room at shift change. Patient exhibited the following behavior Withdrawn, Compliant, Calm. Brief assessment on rounds of vital signs, medication needs, lab studies, and pain. Treatment plan problems . Intervention: Patient assessed and the following interventions initiated safety checks 15 Minute Checks Cognitive Assessment , Head to toe Assessment , Medications. Response: After interactions and interventions patient responded in the following manner, Calm , Compliant ,Withdrawn. Continue to assess behaviors and condition will continue to monitor throughout the shift as needed. Patient educated on ADL's, and hand hygiene. 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 Continue to assess patient for changes in above assessment. Monitor for medication needs, pain, and safety concerns. Hourly rounding performed to ensure safe environment.
[2017-06-28 15:58] VITALS: BP 119/74
--- NOTE | 2017-06-28 16:00 | NUR ---
pt up to meals. compliant with meds and cares. withdrawn to room.
[2017-06-28 16:05] VITALS: BP 119/74
[2017-06-28] MEDS: TAMSULOSIN 0.4 MG CAP.ER.24H. PO SCH (19:41)
[2017-06-28] MEDS: risperiDONE ORAL 1 MG/ML 30ml BOTTLE. SL SCH (19:43)
--- NOTE | 2017-06-28 21:22 | PDOC ---
Exam Note: Óscar Note: Please also refer to the separate dictated note~for this date of service dictated separately.~Patient seen individually. Discussed the patient with Nursing staff reviewed the chart.~Reviewed interim history and current functioning. Reviewed vital signs,~Labs/ Radiology~and current medications noted below. Continue current treatment with the changes noted in the dictated addendum note Assessment: Vital Signs: Vital Signs Date Time Temp Pulse Resp B/P (MAP) Pulse Ox O2 Delivery O2 Flow Rate FiO2 06/28/17 19:42 65 119/74 06/28/17 16:05 97.9 16 98 Room Air I&O Intake and Output 06/28/17 07:00 Intake Total 360 ml Balance 360 ml Intake Oral 360 ml Current Medications: Meds: Current Medications Acetaminophen (Tylenol) 650 mg PRN Q6HRS PRN PO PAIN / TEMP; Start 06/19/17 at 04:00; Stop 06/19/17 at 19:17; Status DC Al Hydroxide/Mg Hydroxide (Mylanta Plus Xs) 15 ml PRN AFTMEALHC PRN PO DYSPEPSIA; Start 06/19/17 at 04:00 Magnesium Hydroxide (Milk Of Magnesia) 2,400 mg PRN QHS PRN PO CONSTIPATION; Start 06/19/17 at 04:00 Olanzapine (ZyPREXA ZYDIS) 1.25 mg PRN Q2HR PRN PO PSYCHOSIS; Start 06/19/17 at 04:00 Acetaminophen (Tylenol) 650 mg PRN Q6HRS PRN PO PAIN Last administered on 06/22 04:58; Start 06/19/17 at 05:30 Docusate Sodium (Colace) 100 mg BID PO Last administered on 06/28/17 19:41; Start 06/19/17 at 09:00 Ketotifen Fumarate (Zaditor) 1 drop BID OU Last administered on 06/28/17 19: 41; Start 06/19/17 at 09:00 Metoprolol Tartrate (Lopressor) 25 mg BID PO Last administered on 06/26/17 08 :07; Start 06/19/17 at 09:00; Stop 06/26/17 at 18:01; Status DC Potassium Chloride (KCl Oral Soln) 20 meq DAILY08 PO Last administered on 06/28 07:27; Start 06/19/17 at 08:00 Tamsulosin HCl (Flomax) 0.4 mg HS PO Last administered on 06/25/17 20:09; Start 06/19/17 at 21:00; Stop 06/26/17 at 18:02; Status DC Vitamin D (Vitamin D3) 50,000 unit WEEKLY PO Last administered on 06/26/17 08 :12; Start 06/19/17 at 09:00 Flecainide Acetate (Tambocor) 50 mg Q12HR PO Last administered on 06/28/17 19 :42; Start 06/19/17 at 09:00 Memantine (Namenda) 5 mg DAILY PO Last administered on 06/26/17 08:07; Start 06/20/17 at 09:00; Stop 06/26/17 at 10:40; Status DC Quetiapine Fumarate (SEROquel) 12.5 mg QHS PO Last administered on 06/19/17 20:22; Start 06/19/17 at 21:00; Stop 06/20/17 at 19:25; Status DC Risperidone (RisperDAL) 0.25 mg QHS SL Last administered on 06/23/17 19:29; Start 06/20/17 at 21:00; Stop 06/24/17 at 17:36; Status DC Fluoxetine HCl (PROzac) 10 mg DAILY PO Last administered on 06/23/17 08:06; Start 06/21/17 at 09:00; Stop 06/24/17 at 17:36; Status DC Fluoxetine HCl (PROzac) 20 mg DAILY PO Last administered on 06/27/17 07:50; Start 06/25/17 at 09:00; Stop 06/27/17 at 17:51; Status DC Risperidone (RisperDAL) 0.5 mg QHS SL Last administered on 06/28/17 19:43; Start 06/24/17 at 21:00 Memantine (Namenda) 10 mg DAILY PO Last administered on 06/28/17 07:28; Start 06/27/17 at 09:00; Stop 06/30/17 at 08:59 Memantine (Namenda) 10 mg BID PO ; Start 06/30/17 at 09:00 Metoprolol Tartrate (Lopressor) 12.5 mg BID PO Last administered on 06/28/17 19:42; Start 06/26/17 at 21:00 Tamsulosin HCl (Flomax) 0.8 mg HS PO Last administered on 06/28/17 19:41; Start 06/26/17 at 21:00 Fluoxetine HCl (PROzac) 30 mg DAILY PO Last administered on 06/28/17 07:29; Start 06/28/17 at 09:00 Active Scripts Active Flecainide Acetate 100 Mg Tablet 50 Mg PO Q12HR 90 Days Metoprolol Tartrate 25 Mg Tablet 1 Tab PO BID 90 Days LAST DOSE GIVEN: DATE: TIME: NEXT DOSE DUE: DATE: TIME: Reported Flomax (Tamsulosin Hcl) 0.4 Mg Cap.er.24h 1 Cap PO HS Zaditor (Ketotifen Fumarate) 5 Ml Drops 1 Drop EACHEYE BID Vitamin D3 (Cholecalciferol (Vitamin D3)) 5,000 Unit Tablet 50,000 Unit PO WEEKLY Tylenol (Acetaminophen) 325 Mg Tablet 650 Mg PO PRN Q6HRS PRN Colace (Docusate Sodium) 100 Mg Capsule 1 Cap PO BID Potassium Chloride Oral Liquid (Potassium Chloride) 20 Meq/15 Ml Liquid 20 Meq PEG DAILY LAST DOSE GIVEN: DATE: TIME: NEXT DOSE DUE: DATE: TIME: I have reviewed the current psychotropics carefully including drug interactions. Risk benefit ratio favors no change other than as noted in my dictated progress note. Diagnosis: Problems: (1) Syncopal episodes (2) Weakness (3) PSVT (paroxysmal supraventricular tachycardia) (4) Cardiac syncope (5) Anxiety disorder (6) Mild cognitive disorder (7) Impulse control disorder (8) Major depressive disorder, recurrent episode CHELSEA RINCON MD Jun 28, 2017 21:22
--- NOTE | 2017-06-28 22:14 | NUR ---
Behavior Intervention Response and Plan: BIRP Note: Behavior: Assumed Care of patient, patient located in Patient Room at shift change. Patient exhibited the following behavior Withdrawn, Compliant, Calm. Brief assessment on rounds of vital signs, medication needs, lab studies, and pain. Treatment plan problems Alteration in Mood and Fall Risk. Intervention: Patient assessed and the following interventions initiated safety checks 15 Minute Checks Cognitive Assessment , Head to toe Assessment , Medications. Response: After interactions and interventions patient responded in the following manner, Calm , Compliant ,Withdrawn. Continue to assess behaviors and condition will continue to monitor throughout the shift as needed. Patient educated on ADL's, and hand hygiene. Plan: Continue to monitor Master Treatment Plan for patient's progress toward short term goals of Decreased Agitation, Medication Compliance, [facility] goals to return to previous living setting vs placement. Continue to assess patient for changes in above assessment. Monitor for medication needs, pain, and safety concerns. Hourly rounding performed to ensure safe environment.
[2017-06-29 06:25] VITALS: BP 113/62
[2017-06-29] MEDS: POTASSIUM CHLORIDE 20 MEQ/15 ML ORAL LIQUID. PO SCH (07:58)
[2017-06-29] MEDS: METOPROLOL TART IMMED RELEASE 25 MG TABLET PO SCH ×2 (07:59→19:32)
[2017-06-29] MEDS: DOCUSATE SODIUM 100 MG CAPSULE PO SCH ×2 (08:00→19:31)
[2017-06-29] MEDS: MEMANTINE 5 MG TABLET. PO SCH (08:00)
[2017-06-29] MEDS: FLECAINIDE 50 MG TABLET. PO SCH ×2 (08:01→19:33)
[2017-06-29] MEDS: KETOTIFEN FUMARATE 0.025% OPHT SOLUTION BOTTLE. OU SCH ×2 (08:03→19:33)
--- NOTE | 2017-06-29 10:08 | NUR ---
Behavior Intervention Response and Plan: BIRP Note: Behavior: Assumed Care of patient, patient located in Dining Room at shift change. Patient exhibited the following behavior Withdrawn, Compliant, Calm. Brief assessment on rounds of vital signs, medication needs, lab studies, and pain. Treatment plan problems . Intervention: Patient assessed and the following interventions initiated safety checks 15 Minute Checks Cognitive Assessment , Head to toe Assessment , Medications. Response: After interactions and interventions patient responded in the following manner, Calm , Compliant ,Withdrawn. Continue to assess behaviors and condition will continue to monitor throughout the shift as needed. Patient educated on ADL's, and hand hygiene. 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 Continue to assess patient for changes in above assessment. Monitor for medication needs, pain, and safety concerns. Hourly rounding performed to ensure safe environment.
[2017-06-29 16:01] VITALS: BP 162/91
--- NOTE | 2017-06-29 19:13 | PN ---
DATE: 06/27/2017 This is a late entry, covers the elements not covered in my initial note 06/27/2017. SUBJECTIVE: The patient was seen individually evening of 06/27/2017, has had a better day on 06/27/2017, ate his breakfast, no lunch, more communicative ambulating with a walker. REVIEW OF SYSTEMS: No CV, , pulmonary, eye, ENT system symptoms on review. Reliability fair. MENTAL STATUS EXAM: Oriented to himself and situation. Speech moderate latency, often responses monosyllabic. Abstraction fair, computation impaired. Mood and affect showing some improvement, more forthcoming verbal as I met with him. LABORATORY DATA: Reviewed. 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 Rest unchanged from initial note. PLAN: Increase Prozac from 20 mg a day, liquid to 30 mg a day. Rest unchanged per initial note. MAN Huan RINCON MD DR: SHAZIA/shanta JOB#: [id number] / [id number]
--- NOTE | 2017-06-29 19:17 | PN ---
DATE: 06/28/2017 This is a late entry, covers the elements not covered in my initial note 06/28/2017. SUBJECTIVE: I met with the patient evening of 06/28/2017. The patient has had a better day on 06/28/2017, more out to the dining room, he ambulates for breakfast, came out of his room much more even the previous evening. REVIEW OF SYSTEMS: Ambulation impaired with walker. No CV, , pulmonary, eye, ENT system symptoms on review. MENTAL STATUS EXAM: Speech moderate latency, coherent, pleasant, smiling as I met with him. Abstraction fair, computation impaired, language function intact, attention span short. Mood and affect still depressed, but improved, less psychotic. LABORATORY DATA: Reviewed. IMPRESSION: Major depressive disorder with psychotic features. Rest unchanged from initial note. PLAN: Namenda was increased to 10 mg daily for 3 days, then 10 mg b.i.d. Rest psychotropics unchanged from initial note. MAN Huan RINCON MD DR: SHAZIA/shanta JOB#: [id number] / [id number]
[2017-06-29] MEDS: TAMSULOSIN 0.4 MG CAP.ER.24H. PO SCH (19:31)
[2017-06-29] MEDS: risperiDONE ORAL 1 MG/ML 30ml BOTTLE. SL SCH (19:33)
--- NOTE | 2017-06-29 19:57 | NUR ---
pt up for meals. ambulating in halls for exercise/ out to day room at times. has had a good appetite and is compliant with meds and cares.
--- NOTE | 2017-06-29 20:16 | PDOC ---
Exam Note: Óscar Note: Please also refer to the separate dictated note~for this date of service dictated separately.~Patient seen individually. Discussed the patient with Nursing staff reviewed the chart.~Reviewed interim history and current functioning. Reviewed vital signs,~Labs/ Radiology~and current medications noted below. Continue current treatment with the changes noted in the dictated addendum note Assessment: Vital Signs: Vital Signs Date Time Temp Pulse Resp B/P (MAP) Pulse Ox O2 Delivery O2 Flow Rate FiO2 06/29/17 19:33 65 162/91 06/29/17 16:01 97.4 20 98 06/28/17 16:05 Room Air I&O Intake and Output 06/29/17 07:00 Intake Total 1080 ml Balance 1080 ml Intake Oral 1080 ml Current Medications: Meds: Current Medications Acetaminophen (Tylenol) 650 mg PRN Q6HRS PRN PO PAIN / TEMP; Start 06/19/17 at 04:00; Stop 06/19/17 at 19:17; Status DC Al Hydroxide/Mg Hydroxide (Mylanta Plus Xs) 15 ml PRN AFTMEALHC PRN PO DYSPEPSIA; Start 06/19/17 at 04:00 Magnesium Hydroxide (Milk Of Magnesia) 2,400 mg PRN QHS PRN PO CONSTIPATION; Start 06/19/17 at 04:00 Olanzapine (ZyPREXA ZYDIS) 1.25 mg PRN Q2HR PRN PO PSYCHOSIS; Start 06/19/17 at 04:00 Acetaminophen (Tylenol) 650 mg PRN Q6HRS PRN PO PAIN Last administered on 06/22 04:58; Start 06/19/17 at 05:30 Docusate Sodium (Colace) 100 mg BID PO Last administered on 06/29/17 19:31; Start 06/19/17 at 09:00 Ketotifen Fumarate (Zaditor) 1 drop BID OU Last administered on 06/29/17 19: 33; Start 06/19/17 at 09:00 Metoprolol Tartrate (Lopressor) 25 mg BID PO Last administered on 06/26/17 08 :07; Start 06/19/17 at 09:00; Stop 06/26/17 at 18:01; Status DC Potassium Chloride (KCl Oral Soln) 20 meq DAILY08 PO Last administered on 06/29 07:58; Start 06/19/17 at 08:00 Tamsulosin HCl (Flomax) 0.4 mg HS PO Last administered on 06/25/17 20:09; Start 06/19/17 at 21:00; Stop 06/26/17 at 18:02; Status DC Vitamin D (Vitamin D3) 50,000 unit WEEKLY PO Last administered on 06/26/17 08 :12; Start 06/19/17 at 09:00 Flecainide Acetate (Tambocor) 50 mg Q12HR PO Last administered on 06/29/17 19 :33; Start 06/19/17 at 09:00 Memantine (Namenda) 5 mg DAILY PO Last administered on 06/26/17 08:07; Start 06/20/17 at 09:00; Stop 06/26/17 at 10:40; Status DC Quetiapine Fumarate (SEROquel) 12.5 mg QHS PO Last administered on 06/19/17 20:22; Start 06/19/17 at 21:00; Stop 06/20/17 at 19:25; Status DC Risperidone (RisperDAL) 0.25 mg QHS SL Last administered on 06/23/17 19:29; Start 06/20/17 at 21:00; Stop 06/24/17 at 17:36; Status DC Fluoxetine HCl (PROzac) 10 mg DAILY PO Last administered on 06/23/17 08:06; Start 06/21/17 at 09:00; Stop 06/24/17 at 17:36; Status DC Fluoxetine HCl (PROzac) 20 mg DAILY PO Last administered on 06/27/17 07:50; Start 06/25/17 at 09:00; Stop 06/27/17 at 17:51; Status DC Risperidone (RisperDAL) 0.5 mg QHS SL Last administered on 06/29/17 19:33; Start 06/24/17 at 21:00 Memantine (Namenda) 10 mg DAILY PO Last administered on 06/29/17 08:00; Start 06/27/17 at 09:00; Stop 06/30/17 at 08:59 Memantine (Namenda) 10 mg BID PO ; Start 06/30/17 at 09:00 Metoprolol Tartrate (Lopressor) 12.5 mg BID PO Last administered on 06/29/17 19:32; Start 06/26/17 at 21:00; Stop 06/29/17 at 20:06; Status DC Tamsulosin HCl (Flomax) 0.8 mg HS PO Last administered on 06/29/17 19:31; Start 06/26/17 at 21:00 Fluoxetine HCl (PROzac) 30 mg DAILY PO Last administered on 06/29/17 08:03; Start 06/28/17 at 09:00 Carvedilol (Coreg) 3.125 mg BIDWMEALS PO ; Start 06/30/17 at 08:00 Active Scripts Active Flecainide Acetate 100 Mg Tablet 50 Mg PO Q12HR 90 Days Metoprolol Tartrate 25 Mg Tablet 1 Tab PO BID 90 Days LAST DOSE GIVEN: DATE: TIME: NEXT DOSE DUE: DATE: TIME: Reported Flomax (Tamsulosin Hcl) 0.4 Mg Cap.er.24h 1 Cap PO HS Zaditor (Ketotifen Fumarate) 5 Ml Drops 1 Drop EACHEYE BID Vitamin D3 (Cholecalciferol (Vitamin D3)) 5,000 Unit Tablet 50,000 Unit PO WEEKLY Tylenol (Acetaminophen) 325 Mg Tablet 650 Mg PO PRN Q6HRS PRN Colace (Docusate Sodium) 100 Mg Capsule 1 Cap PO BID Potassium Chloride Oral Liquid (Potassium Chloride) 20 Meq/15 Ml Liquid 20 Meq PEG DAILY LAST DOSE GIVEN: DATE: TIME: NEXT DOSE DUE: DATE: TIME: I have reviewed the current psychotropics carefully including drug interactions. Risk benefit ratio favors no change other than as noted in my dictated progress note. Diagnosis: Problems: (1) Weakness (2) PSVT (paroxysmal supraventricular tachycardia) (3) Cardiac syncope (4) Anxiety disorder (5) Mild cognitive disorder (6) Impulse control disorder (7) Major depressive disorder, recurrent episode CHELSEA RINCON MD Jun 29, 2017 20:16
--- NOTE | 2017-06-29 23:53 | NUR ---
Behavior Intervention Response and Plan: BIRP Note: Behavior: Assumed Care of patient, patient located in Dining Room at shift change. Patient exhibited the following behavior Withdrawn, Compliant, Calm. Brief assessment on rounds of vital signs, medication needs, lab studies, and pain. Treatment plan problems 1-2. Intervention: Patient assessed and the following interventions initiated safety checks 15 Minute Checks Cognitive Assessment , Head to toe Assessment , Medications. Response: After interactions and interventions patient responded in the following manner, Calm , Compliant ,Withdrawn. Continue to assess behaviors and condition will continue to monitor throughout the shift as needed. Patient educated on ADL's, and hand hygiene. 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 Continue to assess patient for changes in above assessment. Monitor for medication needs, pain, and safety concerns. Hourly rounding performed to ensure safe environment.
[2017-06-30 05:54] VITALS: BP 90/60
[2017-06-30] MEDS: CARVEDILOL 3.125 MG TABLET PO SCH ×2 (07:39→16:47)
--- NOTE | 2017-06-30 09:00 | NUR ---
Held coreg and BP medication due to vital signs, 90/60 hr 58. Will continue to monitor.
[2017-06-30] MEDS: DOCUSATE SODIUM 100 MG CAPSULE PO SCH ×2 (09:24→19:26)
[2017-06-30] MEDS: POTASSIUM CHLORIDE 20 MEQ/15 ML ORAL LIQUID. PO SCH (09:24)
[2017-06-30] MEDS: KETOTIFEN FUMARATE 0.025% OPHT SOLUTION BOTTLE. OU SCH ×2 (09:25→19:28)
[2017-06-30] MEDS: MEMANTINE 10 MG TABLET. PO SCH ×2 (09:27→19:26)
[2017-06-30] MEDS: FLECAINIDE 50 MG TABLET. PO SCH ×3 (09:28→19:28)
--- NOTE | 2017-06-30 11:24 | NUR ---
patient in bed, withdrawn to room. Compliant with medications given whole and liquid meds given in orange juice. Stated that he "doesn't feel right". Showing reluctance to come out of room, seems to be r/t noise of other patients in day room at this time. Will continue to monitor.
--- NOTE | 2017-06-30 11:26 | NUR ---
Behavior Intervention Response and Plan: BIRP Note: Behavior: Assumed Care of patient, patient located in Patient Room at shift change. Patient exhibited the following behavior Calm, Compliant, Withdrawn. Brief assessment on rounds of vital signs, medication needs, lab studies, and pain. Treatment plan problems 1 and 2. Intervention: Patient assessed and the following interventions initiated safety checks 15 Minute Checks Cognitive Assessment , Head to toe Assessment , Medications. Response: After interactions and interventions patient responded in the following manner, Calm , Withdrawn ,Compliant. Continue to assess behaviors and condition will continue to monitor throughout the shift as needed. Patient educated on ADL's, and hand hygiene. 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 Continue to assess patient for changes in above assessment. Monitor for medication needs, pain, and safety concerns. Hourly rounding performed to ensure safe environment.
[2017-06-30 16:11] VITALS: BP 134/70
[2017-06-30] MEDS: TAMSULOSIN 0.4 MG CAP.ER.24H. PO SCH (19:26)
[2017-06-30] MEDS: risperiDONE ORAL 1 MG/ML 30ml BOTTLE. SL SCH (19:27)
--- NOTE | 2017-06-30 20:13 | PDOC ---
Exam Note: Óscar Note: Please also refer to the separate dictated note~for this date of service dictated separately.~Patient seen individually. Discussed the patient with Nursing staff reviewed the chart.~Reviewed interim history and current functioning. Reviewed vital signs,~Labs/ Radiology~and current medications noted below. Continue current treatment with the changes noted in the dictated addendum note Assessment: Vital Signs: Vital Signs Date Time Temp Pulse Resp B/P (MAP) Pulse Ox O2 Delivery O2 Flow Rate FiO2 06/30/17 19:28 75 134/70 06/30/17 16:11 96.7 18 96 Room Air I&O Intake and Output 06/30/17 06:59 Intake Total 1080 ml Balance 1080 ml Intake Oral 1080 ml Current Medications: Meds: Current Medications Acetaminophen (Tylenol) 650 mg PRN Q6HRS PRN PO PAIN / TEMP; Start 06/19/17 at 04:00; Stop 06/19/17 at 19:17; Status DC Al Hydroxide/Mg Hydroxide (Mylanta Plus Xs) 15 ml PRN AFTMEALHC PRN PO DYSPEPSIA; Start 06/19/17 at 04:00 Magnesium Hydroxide (Milk Of Magnesia) 2,400 mg PRN QHS PRN PO CONSTIPATION; Start 06/19/17 at 04:00 Olanzapine (ZyPREXA ZYDIS) 1.25 mg PRN Q2HR PRN PO PSYCHOSIS; Start 06/19/17 at 04:00 Acetaminophen (Tylenol) 650 mg PRN Q6HRS PRN PO PAIN Last administered on 06/22 04:58; Start 06/19/17 at 05:30 Docusate Sodium (Colace) 100 mg BID PO Last administered on 06/30/17 19:26; Start 06/19/17 at 09:00 Ketotifen Fumarate (Zaditor) 1 drop BID OU Last administered on 06/30/17 19: 28; Start 06/19/17 at 09:00 Metoprolol Tartrate (Lopressor) 25 mg BID PO Last administered on 06/26/17 08 :07; Start 06/19/17 at 09:00; Stop 06/26/17 at 18:01; Status DC Potassium Chloride (KCl Oral Soln) 20 meq DAILY08 PO Last administered on 06/30 09:24; Start 06/19/17 at 08:00 Tamsulosin HCl (Flomax) 0.4 mg HS PO Last administered on 06/25/17 20:09; Start 06/19/17 at 21:00; Stop 06/26/17 at 18:02; Status DC Vitamin D (Vitamin D3) 50,000 unit WEEKLY PO Last administered on 06/26/17 08 :12; Start 06/19/17 at 09:00 Flecainide Acetate (Tambocor) 50 mg Q12HR PO Last administered on 06/30/17 19 :28; Start 06/19/17 at 09:00 Memantine (Namenda) 5 mg DAILY PO Last administered on 06/26/17 08:07; Start 06/20/17 at 09:00; Stop 06/26/17 at 10:40; Status DC Quetiapine Fumarate (SEROquel) 12.5 mg QHS PO Last administered on 06/19/17 20:22; Start 06/19/17 at 21:00; Stop 06/20/17 at 19:25; Status DC Risperidone (RisperDAL) 0.25 mg QHS SL Last administered on 06/23/17 19:29; Start 06/20/17 at 21:00; Stop 06/24/17 at 17:36; Status DC Fluoxetine HCl (PROzac) 10 mg DAILY PO Last administered on 06/23/17 08:06; Start 06/21/17 at 09:00; Stop 06/24/17 at 17:36; Status DC Fluoxetine HCl (PROzac) 20 mg DAILY PO Last administered on 06/27/17 07:50; Start 06/25/17 at 09:00; Stop 06/27/17 at 17:51; Status DC Risperidone (RisperDAL) 0.5 mg QHS SL Last administered on 06/30/17 19:27; Start 06/24/17 at 21:00 Memantine (Namenda) 10 mg DAILY PO Last administered on 06/29/17 08:00; Start 06/27/17 at 09:00; Stop 06/30/17 at 09:00; Status DC Memantine (Namenda) 10 mg BID PO Last administered on 06/30/17 19:26; Start 06/30/17 at 09:00 Metoprolol Tartrate (Lopressor) 12.5 mg BID PO Last administered on 06/29/17 19:32; Start 06/26/17 at 21:00; Stop 06/29/17 at 20:06; Status DC Tamsulosin HCl (Flomax) 0.8 mg HS PO Last administered on 06/30/17 19:26; Start 06/26/17 at 21:00 Fluoxetine HCl (PROzac) 30 mg DAILY PO Last administered on 06/30/17 09:28; Start 06/28/17 at 09:00 Carvedilol (Coreg) 3.125 mg BIDWMEALS PO Last administered on 06/30/17 16:47 ; Start 06/30/17 at 08:00 Active Scripts Active Flecainide Acetate 100 Mg Tablet 50 Mg PO Q12HR 90 Days Metoprolol Tartrate 25 Mg Tablet 1 Tab PO BID 90 Days LAST DOSE GIVEN: DATE: TIME: NEXT DOSE DUE: DATE: TIME: Reported Flomax (Tamsulosin Hcl) 0.4 Mg Cap.er.24h 1 Cap PO HS Zaditor (Ketotifen Fumarate) 5 Ml Drops 1 Drop EACHEYE BID Vitamin D3 (Cholecalciferol (Vitamin D3)) 5,000 Unit Tablet 50,000 Unit PO WEEKLY Tylenol (Acetaminophen) 325 Mg Tablet 650 Mg PO PRN Q6HRS PRN Colace (Docusate Sodium) 100 Mg Capsule 1 Cap PO BID Potassium Chloride Oral Liquid (Potassium Chloride) 20 Meq/15 Ml Liquid 20 Meq PEG DAILY LAST DOSE GIVEN: DATE: TIME: NEXT DOSE DUE: DATE: TIME: I have reviewed the current psychotropics carefully including drug interactions. Risk benefit ratio favors no change other than as noted in my dictated progress note. Diagnosis: Problems: (1) Anxiety disorder (2) Mild cognitive disorder (3) Impulse control disorder (4) Major depressive disorder, recurrent episode CHELSEA RINCON MD Jun 30, 2017 20:13
--- NOTE | 2017-06-30 21:55 | PN ---
DATE: 06/29/2017 PSYCHIATRIC PROGRESS NOTE This is a late entry for 06/29/2017 covers elements not covered in my initial note of 06/29/2017. SUBJECTIVE: I met with the patient evening of 06/29/2017. The patient's appetite is better. He is more interactive, compliant with his medications and meals. REVIEW OF SYSTEMS: Ambulation impaired with walker. No CV, , pulmonary, eye, ENT system symptoms on review. MENTAL STATUS EXAM: Reasonably oriented to himself and situation. Speech moderate latency, coherent. Abstraction fair, computation impaired, language function intact. Mood and affect still depressed, but showing improvement. LABORATORY DATA: Reviewed. IMPRESSION: Major depressive disorder with psychotic features; cognitive disorder, unspecified. Rest unchanged from initial note. PLAN: Continue psychotropics mentioned in my initial note. MAN Huan RINCON MD DR: SHAZIA/shanta JOB#: [id number] / [id number]
--- NOTE | 2017-06-30 22:07 | NUR ---
Behavior Intervention Response and Plan: BIRP Note: Behavior: Assumed Care of patient, patient located in Patient Room at shift change. Patient exhibited the following behavior Withdrawn, Compliant, Calm. Brief assessment on rounds of vital signs, medication needs, lab studies, and pain. Treatment plan problems Alteration in Mood and Fall Risk. Intervention: Patient assessed and the following interventions initiated safety checks 15 Minute Checks Cognitive Assessment , Head to toe Assessment , Medications. Response: After interactions and interventions patient responded in the following manner, Calm , Compliant ,Withdrawn. Continue to assess behaviors and condition will continue to monitor throughout the shift as needed. Patient educated on ADL's, and hand hygiene. Plan: Continue to monitor Master Treatment Plan for patient's progress toward short term goals of Decreased Agitation, Medication Compliance, nursing home goals to return to previous living setting vs placement. Continue to assess patient for changes in above assessment. Monitor for medication needs, pain, and safety concerns. Hourly rounding performed to ensure safe environment.
[2017-07-01 05:19] VITALS: BP 140/82
[2017-07-01] MEDS: POTASSIUM CHLORIDE 20 MEQ/15 ML ORAL LIQUID. PO SCH (08:01)
[2017-07-01] MEDS: MEMANTINE 10 MG TABLET. PO SCH ×2 (08:02→20:11)
[2017-07-01] MEDS: CARVEDILOL 3.125 MG TABLET PO SCH ×2 (08:02→16:59)
[2017-07-01] MEDS: FLECAINIDE 50 MG TABLET. PO SCH ×2 (08:02→20:12)
[2017-07-01] MEDS: KETOTIFEN FUMARATE 0.025% OPHT SOLUTION BOTTLE. OU SCH ×2 (08:03→20:12)
[2017-07-01] MEDS: DOCUSATE SODIUM 100 MG CAPSULE PO SCH ×2 (08:03→20:11)
--- NOTE | 2017-07-01 08:10 | NUR ---
SW stopped by pt's room as pt was sitting up in bed. SW said hello and asked how pt was doing. Pt stated he was not doing well as he needed to brush his teeth. SW assisted pt in finding his toothbrush and pt was happy.
--- NOTE | 2017-07-01 08:55 | NUR ---
Behavior Intervention Response and Plan: BIRP Note: Behavior: Assumed Care of patient, patient located in Patient Room at shift change. Patient exhibited the following behavior Disorganized, Withdrawn, Interactive. Brief assessment on rounds of vital signs, medication needs, lab studies, and pain. Treatment plan problems 1 & 2. Intervention: Patient assessed and the following interventions initiated safety checks 15 Minute Checks Cognitive Assessment , Head to toe Assessment , Medications. Response: After interactions and interventions patient responded in the following manner, Calm , Appropriate ,Compliant. Continue to assess behaviors and condition will continue to monitor throughout the shift as needed. Patient educated on ADL's, and hand hygiene. Plan: Continue to monitor Master Treatment Plan for patient's progress toward short term goals of Decreased Agitation, Decreased Aggression, group home goals to return to previous living setting vs placement. Continue to assess patient for changes in above assessment. Monitor for medication needs, pain, and safety concerns. Hourly rounding performed to ensure safe environment.
[2017-07-01 15:54] VITALS: BP 139/74
--- NOTE | 2017-07-01 17:17 | NUR ---
Per EMR, patient has not had a bowel movement since 06/25/17. Patient stated that he has not had a BM 'in a while'. Offered patient milk of magnesia which was declined. Patient self toilets and has active bowel sounds. Will monitor for s/sx of constipation.
--- NOTE | 2017-07-01 17:30 | NUR ---
SW met w/pt's dtr and son in law from [place] to discuss dc plans. SW shared other children had been contacted by this SW and SW during previous admit and directed on how to proceed w/next steps for Guardianship and placement. They are interested in seeing if pt qualifies [facility] as [facility] already 40% connected. SW provided directives on Guardianship thru a elder employment law attorney and the need to convince pt's to apply for Medicaid if pt is truly unable to return home. SW provided contact number for follow up and is available for any further questions that may arise. 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
--- NOTE | 2017-07-01 20:10 | PDOC ---
Exam Note: Óscar Note: Please also refer to the separate dictated note~for this date of service dictated separately.~Patient seen individually. Discussed the patient with Nursing staff reviewed the chart.~Reviewed interim history and current functioning. Reviewed vital signs,~Labs/ Radiology~and current medications noted below. Continue current treatment with the changes noted in the dictated addendum note Assessment: Vital Signs: Vital Signs Date Time Temp Pulse Resp B/P (MAP) Pulse Ox O2 Delivery O2 Flow Rate FiO2 07/01/17 16:59 65 139/74 07/01/17 15:54 98.0 19 98 06/30/17 16:11 Room Air I&O Intake and Output 07/01/17 07:00 Intake Total 700 ml Balance 700 ml Intake Oral 700 ml # Voids 3 Current Medications: Meds: Current Medications Acetaminophen (Tylenol) 650 mg PRN Q6HRS PRN PO PAIN / TEMP; Start 06/19/17 at 04:00; Stop 06/19/17 at 19:17; Status DC Al Hydroxide/Mg Hydroxide (Mylanta Plus Xs) 15 ml PRN AFTMEALHC PRN PO DYSPEPSIA; Start 06/19/17 at 04:00 Magnesium Hydroxide (Milk Of Magnesia) 2,400 mg PRN QHS PRN PO CONSTIPATION; Start 06/19/17 at 04:00 Olanzapine (ZyPREXA ZYDIS) 1.25 mg PRN Q2HR PRN PO PSYCHOSIS; Start 06/19/17 at 04:00 Acetaminophen (Tylenol) 650 mg PRN Q6HRS PRN PO PAIN Last administered on 06/22 04:58; Start 06/19/17 at 05:30 Docusate Sodium (Colace) 100 mg BID PO Last administered on 07/01/17 08:03; Start 06/19/17 at 09:00 Ketotifen Fumarate (Zaditor) 1 drop BID OU Last administered on 07/01/17 08: 03; Start 06/19/17 at 09:00 Metoprolol Tartrate (Lopressor) 25 mg BID PO Last administered on 06/26/17 08 :07; Start 06/19/17 at 09:00; Stop 06/26/17 at 18:01; Status DC Potassium Chloride (KCl Oral Soln) 20 meq DAILY08 PO Last administered on 07/01 08:01; Start 06/19/17 at 08:00 Tamsulosin HCl (Flomax) 0.4 mg HS PO Last administered on 06/25/17 20:09; Start 06/19/17 at 21:00; Stop 06/26/17 at 18:02; Status DC Vitamin D (Vitamin D3) 50,000 unit WEEKLY PO Last administered on 06/26/17 08 :12; Start 06/19/17 at 09:00 Flecainide Acetate (Tambocor) 50 mg Q12HR PO Last administered on 07/01/17 08 :02; Start 06/19/17 at 09:00 Memantine (Namenda) 5 mg DAILY PO Last administered on 06/26/17 08:07; Start 06/20/17 at 09:00; Stop 06/26/17 at 10:40; Status DC Quetiapine Fumarate (SEROquel) 12.5 mg QHS PO Last administered on 06/19/17 20:22; Start 06/19/17 at 21:00; Stop 06/20/17 at 19:25; Status DC Risperidone (RisperDAL) 0.25 mg QHS SL Last administered on 06/23/17 19:29; Start 06/20/17 at 21:00; Stop 06/24/17 at 17:36; Status DC Fluoxetine HCl (PROzac) 10 mg DAILY PO Last administered on 06/23/17 08:06; Start 06/21/17 at 09:00; Stop 06/24/17 at 17:36; Status DC Fluoxetine HCl (PROzac) 20 mg DAILY PO Last administered on 06/27/17 07:50; Start 06/25/17 at 09:00; Stop 06/27/17 at 17:51; Status DC Risperidone (RisperDAL) 0.5 mg QHS SL Last administered on 06/30/17 19:27; Start 06/24/17 at 21:00 Memantine (Namenda) 10 mg DAILY PO Last administered on 06/29/17 08:00; Start 06/27/17 at 09:00; Stop 06/30/17 at 09:00; Status DC Memantine (Namenda) 10 mg BID PO Last administered on 07/01/17 08:02; Start 06/30/17 at 09:00 Metoprolol Tartrate (Lopressor) 12.5 mg BID PO Last administered on 06/29/17 19:32; Start 06/26/17 at 21:00; Stop 06/29/17 at 20:06; Status DC Tamsulosin HCl (Flomax) 0.8 mg HS PO Last administered on 06/30/17 19:26; Start 06/26/17 at 21:00 Fluoxetine HCl (PROzac) 30 mg DAILY PO Last administered on 07/01/17 08:03; Start 06/28/17 at 09:00 Carvedilol (Coreg) 3.125 mg BIDWMEALS PO Last administered on 07/01/17 16:59 ; Start 06/30/17 at 08:00 Active Scripts Active Flecainide Acetate 100 Mg Tablet 50 Mg PO Q12HR 90 Days Metoprolol Tartrate 25 Mg Tablet 1 Tab PO BID 90 Days LAST DOSE GIVEN: DATE: TIME: NEXT DOSE DUE: DATE: TIME: Reported Flomax (Tamsulosin Hcl) 0.4 Mg Cap.er.24h 1 Cap PO HS Zaditor (Ketotifen Fumarate) 5 Ml Drops 1 Drop EACHEYE BID Vitamin D3 (Cholecalciferol (Vitamin D3)) 5,000 Unit Tablet 50,000 Unit PO WEEKLY Tylenol (Acetaminophen) 325 Mg Tablet 650 Mg PO PRN Q6HRS PRN Colace (Docusate Sodium) 100 Mg Capsule 1 Cap PO BID Potassium Chloride Oral Liquid (Potassium Chloride) 20 Meq/15 Ml Liquid 20 Meq PEG DAILY LAST DOSE GIVEN: DATE: TIME: NEXT DOSE DUE: DATE: TIME: I have reviewed the current psychotropics carefully including drug interactions. Risk benefit ratio favors no change other than as noted in my dictated progress note. Diagnosis: Problems: (1) Anxiety disorder (2) Mild cognitive disorder (3) Impulse control disorder (4) Major depressive disorder, recurrent episode CHELSEA RINCON MD Jul 01, 2017 20:10
[2017-07-01] MEDS: TAMSULOSIN 0.4 MG CAP.ER.24H. PO SCH (20:11)
[2017-07-01] MEDS: risperiDONE ORAL 1 MG/ML 30ml BOTTLE. SL SCH (20:13)
--- NOTE | 2017-07-01 20:49 | NUR ---
Pt was asked if he had BM today, pt stated "a little bit". Pt was then offered PRN MOM however pt declined at this time stating, "no, I don't need it right now". Pt abdomen soft, non-tender to palpation with active bowel sounds.
--- NOTE | 2017-07-01 21:39 | NUR ---
Behavior Intervention Response and Plan: BIRP Note: Behavior: Assumed Care of patient, patient located in Patient Room at shift change. Patient exhibited the following behavior Calm, Withdrawn, Cooperative. Brief assessment on rounds of vital signs, medication needs, lab studies, and pain. Treatment plan problems 1 and 2. Intervention: Patient assessed and the following interventions initiated safety checks 15 Minute Checks Cognitive Assessment , Head to toe Assessment , Medications. Response: After interactions and interventions patient responded in the following manner, Calm , Compliant ,Cooperative. Continue to assess behaviors and condition will continue to monitor throughout the shift as needed. Patient educated on ADL's, and hand hygiene. Plan: Continue to monitor Master Treatment Plan for patient's progress toward short term goals of Improved Mood, Decreased Agitation, nursing home goals to return to previous living setting vs placement. Continue to assess patient for changes in above assessment. Monitor for medication needs, pain, and safety concerns. Hourly rounding performed to ensure safe environment.
[2017-07-02 05:10] VITALS: BP 129/76
[2017-07-02 07:08] LABS: BASO % 1 % (0-3); EOS # 0.3 x10^3/uL (0.0-0.7); EOS % 6 % (0-3); HEMATOCRIT 34.3 % (39.0-53.0); HEMOGLOBIN 11.8 g/dL (13.0-17.5); LYMPH # 1.3 x10^3/uL (1.0-4.8); LYMPH % 27 % (24-48); MEAN CORPUSCULAR HEMOGLOBIN 33 pg (25-35); MEAN CORPUSCULAR HGB CONC 34 g/dL (31-37); MEAN CORPUSCULAR VOLUME 96 fL (79-100); MONO # 0.5 x10^3/uL (0.0-1.1); MONO % 10 % (0-9); NEUT # 2.7 x10^3uL (1.8-7.7); NEUT % 57 % (31-73); PLATELET COUNT 173 x10^3/uL (140-400); RED BLOOD COUNT 3.57 x10^6/uL (4.30-5.70); RED CELL DISTRIBUTION WIDTH 13.6 % (11.5-14.5); WHITE BLOOD COUNT 4.8 x10^3/uL (4.0-11.0)
[2017-07-02 07:25] LABS: ALBUMIN 2.9 g/dL (3.4-5.0); CALCIUM 8.7 mg/dL (8.5-10.1); CREATININE 0.7 mg/dL (0.7-1.3); GFR 106.7; MAGNESIUM 1.9 mg/dL (1.8-2.4); POTASSIUM 3.8 mmol/L (3.5-5.1); TOTAL BILIRUBIN 0.3 mg/dL (0.2-1.0); TOTAL PROTEIN 5.8 g/dL (6.4-8.2)
[2017-07-02] MEDS: KETOTIFEN FUMARATE 0.025% OPHT SOLUTION BOTTLE. OU SCH ×2 (09:00→19:58)
[2017-07-02] MEDS: POTASSIUM CHLORIDE 20 MEQ/15 ML ORAL LIQUID. PO SCH (09:24)
[2017-07-02] MEDS: MEMANTINE 10 MG TABLET. PO SCH ×2 (09:24→19:58)
[2017-07-02] MEDS: CARVEDILOL 3.125 MG TABLET PO SCH ×2 (09:25→17:11)
[2017-07-02] MEDS: DOCUSATE SODIUM 100 MG CAPSULE PO SCH ×2 (09:25→19:58)
[2017-07-02] MEDS: FLECAINIDE 50 MG TABLET. PO SCH ×2 (09:25→19:59)
--- NOTE | 2017-07-02 09:30 | NUR ---
Behavior Intervention Response and Plan: BIRP Note: Behavior: Assumed Care of patient, patient located in Patient Room at shift change. Patient exhibited the following behavior Calm, Appropriate, Cooperative. Brief assessment on rounds of vital signs, medication needs, lab studies, and pain. Treatment plan problems . Intervention: Patient assessed and the following interventions initiated safety checks 15 Minute Checks Head to toe Assessment , Cognitive Assessment , Medications. Response: After interactions and interventions patient responded in the following manner, Withdrawn , Disorganized ,Compliant. Continue to assess behaviors and condition will continue to monitor throughout the shift as needed. Patient educated on ADL's, and hand hygiene. 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 Continue to assess patient for changes in above assessment. Monitor for medication needs, pain, and safety concerns. Hourly rounding performed to ensure safe environment.
--- NOTE | 2017-07-02 12:13 | PN ---
DATE: 06/30/2017 PSYCHIATRIC PROGRESS NOTE This is a late entry 06/30/2017, covers elements not covered in my initial note 06/30/2017. SUBJECTIVE: I met with the patient the evening of 06/30/2017. The patient slept 7-1/2 hours previous evening. I met with him in his room at length, reluctant to leave his room, eating better, but withdrawn to room between meals. REVIEW OF SYSTEMS: Ambulation impaired with walker. No CV, , pulmonary, eye, ENT system symptoms on review. MENTAL STATUS EXAM: Oriented to himself and situation. Speech has some latency, coherent. Abstraction fair, computation impaired, language function intact. Mood and affect still somewhat withdrawn, showing improvement. LABORATORY DATA: Reviewed. IMPRESSION: Major depressive disorder with psychotic features in partial remission. Rest unchanged. PLAN: Continue psychotropics mentioned in my initial note. Adjust further as clinically indicated. MAN Huan RINCON MD DR: SHAZIA/shanta JOB#: [id number] / [id number]
--- NOTE | 2017-07-02 14:48 | NUR ---
SW received call from pt's dtr's , Sagar regarding completing a Medicaid application. SW advised him to obtain a copy of the application online. TOI explained, briefly, how the division of assets work so that pt's could feel more at ease about knowing she will be able to keep some of the assets for her living. SW verified pt's PCP and Pharmacy. SW offered additional assistance, if needed, to just call SW.
--- NOTE | 2017-07-02 15:00 | NUR ---
WEEKLY THERAPEUTIC RECREATION NOTE Date of Admission: 06/19/2017 Date of AT Assessment: 06/23/2017 Goal aimed: to increase time management and leisure awareness Initial goal: Pt. will participate in at least one group a week. Weekly progress towards goal: did not achieve Group participation level: Zero participation, besides a few coffee groups. Behaviors observed: Chooses to stay in room when invited to activities. Usually sits in bed, awake. Plan: no changes towards goal
[2017-07-02 16:05] VITALS: BP 143/82
--- NOTE | 2017-07-02 19:53 | PDOC ---
Exam Note: Óscar Note: Please also refer to the separate dictated note~for this date of service dictated separately.~Patient seen individually. Discussed the patient with Nursing staff reviewed the chart.~Reviewed interim history and current functioning. Reviewed vital signs,~Labs/ Radiology~and current medications noted below. Continue current treatment with the changes noted in the dictated addendum note Assessment: Vital Signs: Vital Signs Date Time Temp Pulse Resp B/P (MAP) Pulse Ox O2 Delivery O2 Flow Rate FiO2 07/02/17 17:11 58 143/82 07/02/17 16:05 97.4 18 100 06/30/17 16:11 Room Air I&O Intake and Output 07/02/17 06:59 Intake Total 820 ml Balance 820 ml Intake Oral 820 ml # Voids 3 Labs: Laboratory Tests Test 07/02/17 06:34 White Blood Count 4.8 x10^3/uL (4.0-11.0) Red Blood Count 3.57 x10^6/uL (4.30-5.70) L Hemoglobin 11.8 g/dL (13.0-17.5) L Hematocrit 34.3 % (39.0-53.0) L Mean Corpuscular Volume 96 fL (79-100) Mean Corpuscular Hemoglobin 33 pg (25-35) Mean Corpuscular Hemoglobin Concent 34 g/dL (31-37) Red Cell Distribution Width 13.6 % (11.5-14.5) Platelet Count 173 x10^3/uL (140-400) Neutrophils (%) (Auto) 57 % (31-73) Lymphocytes (%) (Auto) 27 % (24-48) Monocytes (%) (Auto) 10 % (0-9) H Eosinophils (%) (Auto) 6 % (0-3) H Basophils (%) (Auto) 1 % (0-3) Neutrophils # (Auto) 2.7 x10^3uL (1.8-7.7) Lymphocytes # (Auto) 1.3 x10^3/uL (1.0-4.8) Monocytes # (Auto) 0.5 x10^3/uL (0.0-1.1) Eosinophils # (Auto) 0.3 x10^3/uL (0.0-0.7) Basophils # (Auto) 0.0 x10^3/uL (0.0-0.2) Sodium Level 139 mmol/L (136-145) Potassium Level 3.8 mmol/L (3.5-5.1) Chloride Level 104 mmol/L (98-107) Carbon Dioxide Level 29 mmol/L (21-32) Anion Gap 6 (6-14) Blood Urea Nitrogen 9 mg/dL (8-26) Creatinine 0.7 mg/dL (0.7-1.3) Estimated GFR (Cockcroft-Gault) 106.7 BUN/Creatinine Ratio 13 (6-20) Glucose Level 89 mg/dL (70-99) Calcium Level 8.7 mg/dL (8.5-10.1) Magnesium Level 1.9 mg/dL (1.8-2.4) Total Bilirubin 0.3 mg/dL (0.2-1.0) Aspartate Amino Transferase (AST) 16 U/L (15-37) Alanine Aminotransferase (ALT) 19 U/L (16-63) Alkaline Phosphatase 59 U/L (46-116) Total Protein 5.8 g/dL (6.4-8.2) L Albumin 2.9 g/dL (3.4-5.0) L Albumin/Globulin Ratio 1.0 (1.0-1.7) Current Medications: Meds: Current Medications Acetaminophen (Tylenol) 650 mg PRN Q6HRS PRN PO PAIN / TEMP; Start 06/19/17 at 04:00; Stop 06/19/17 at 19:17; Status DC Al Hydroxide/Mg Hydroxide (Mylanta Plus Xs) 15 ml PRN AFTMEALHC PRN PO DYSPEPSIA; Start 06/19/17 at 04:00 Magnesium Hydroxide (Milk Of Magnesia) 2,400 mg PRN QHS PRN PO CONSTIPATION; Start 06/19/17 at 04:00 Olanzapine (ZyPREXA ZYDIS) 1.25 mg PRN Q2HR PRN PO PSYCHOSIS; Start 06/19/17 at 04:00 Acetaminophen (Tylenol) 650 mg PRN Q6HRS PRN PO PAIN Last administered on 06/22 04:58; Start 06/19/17 at 05:30 Docusate Sodium (Colace) 100 mg BID PO Last administered on 07/02/17 09:25; Start 06/19/17 at 09:00 Ketotifen Fumarate (Zaditor) 1 drop BID OU Last administered on 07/02/17 09: 00; Start 06/19/17 at 09:00 Metoprolol Tartrate (Lopressor) 25 mg BID PO Last administered on 06/26/17 08 :07; Start 06/19/17 at 09:00; Stop 06/26/17 at 18:01; Status DC Potassium Chloride (KCl Oral Soln) 20 meq DAILY08 PO Last administered on 07/02 09:24; Start 06/19/17 at 08:00 Tamsulosin HCl (Flomax) 0.4 mg HS PO Last administered on 06/25/17 20:09; Start 06/19/17 at 21:00; Stop 06/26/17 at 18:02; Status DC Vitamin D (Vitamin D3) 50,000 unit WEEKLY PO Last administered on 06/26/17 08 :12; Start 06/19/17 at 09:00 Flecainide Acetate (Tambocor) 50 mg Q12HR PO Last administered on 07/02/17 09 :25; Start 06/19/17 at 09:00 Memantine (Namenda) 5 mg DAILY PO Last administered on 06/26/17 08:07; Start 06/20/17 at 09:00; Stop 06/26/17 at 10:40; Status DC Quetiapine Fumarate (SEROquel) 12.5 mg QHS PO Last administered on 06/19/17 20:22; Start 06/19/17 at 21:00; Stop 06/20/17 at 19:25; Status DC Risperidone (RisperDAL) 0.25 mg QHS SL Last administered on 06/23/17 19:29; Start 06/20/17 at 21:00; Stop 06/24/17 at 17:36; Status DC Fluoxetine HCl (PROzac) 10 mg DAILY PO Last administered on 06/23/17 08:06; Start 06/21/17 at 09:00; Stop 06/24/17 at 17:36; Status DC Fluoxetine HCl (PROzac) 20 mg DAILY PO Last administered on 06/27/17 07:50; Start 06/25/17 at 09:00; Stop 06/27/17 at 17:51; Status DC Risperidone (RisperDAL) 0.5 mg QHS SL Last administered on 07/01/17 20:13; Start 06/24/17 at 21:00 Memantine (Namenda) 10 mg DAILY PO Last administered on 06/29/17 08:00; Start 06/27/17 at 09:00; Stop 06/30/17 at 09:00; Status DC Memantine (Namenda) 10 mg BID PO Last administered on 07/02/17 09:24; Start 06/30/17 at 09:00 Metoprolol Tartrate (Lopressor) 12.5 mg BID PO Last administered on 06/29/17 19:32; Start 06/26/17 at 21:00; Stop 06/29/17 at 20:06; Status DC Tamsulosin HCl (Flomax) 0.8 mg HS PO Last administered on 07/01/17 20:11; Start 06/26/17 at 21:00 Fluoxetine HCl (PROzac) 30 mg DAILY PO Last administered on 07/02/17 09:00; Start 06/28/17 at 09:00 Carvedilol (Coreg) 3.125 mg BIDWMEALS PO Last administered on 07/02/17 17:11 ; Start 06/30/17 at 08:00 Active Scripts Active Flecainide Acetate 100 Mg Tablet 50 Mg PO Q12HR 90 Days Metoprolol Tartrate 25 Mg Tablet 1 Tab PO BID 90 Days LAST DOSE GIVEN: DATE: TIME: NEXT DOSE DUE: DATE: TIME: Reported Flomax (Tamsulosin Hcl) 0.4 Mg Cap.er.24h 1 Cap PO HS Zaditor (Ketotifen Fumarate) 5 Ml Drops 1 Drop EACHEYE BID Vitamin D3 (Cholecalciferol (Vitamin D3)) 5,000 Unit Tablet 50,000 Unit PO WEEKLY Tylenol (Acetaminophen) 325 Mg Tablet 650 Mg PO PRN Q6HRS PRN Colace (Docusate Sodium) 100 Mg Capsule 1 Cap PO BID Potassium Chloride Oral Liquid (Potassium Chloride) 20 Meq/15 Ml Liquid 20 Meq PEG DAILY LAST DOSE GIVEN: DATE: TIME: NEXT DOSE DUE: DATE: TIME: I have reviewed the current psychotropics carefully including drug interactions. Risk benefit ratio favors no change other than as noted in my dictated progress note. Diagnosis: Problems: (1) Anxiety disorder (2) Mild cognitive disorder (3) Impulse control disorder (4) Major depressive disorder, recurrent episode CHELSEA RINCON MD Jul 02, 2017 19:53
[2017-07-02] MEDS: TAMSULOSIN 0.4 MG CAP.ER.24H. PO SCH (19:58)
[2017-07-02] MEDS: risperiDONE ORAL 1 MG/ML 30ml BOTTLE. SL SCH (19:59)
--- NOTE | 2017-07-03 01:04 | NUR ---
Behavior Intervention Response and Plan: BIRP Note: Behavior: Assumed Care of patient, patient located in Patient Room at shift change. Patient exhibited the following behavior Calm, Withdrawn, Sleeping. Brief assessment on rounds of vital signs, medication needs, lab studies, and pain. Treatment plan problems 1 and 2. Intervention: Patient assessed and the following interventions initiated safety checks 15 Minute Checks Cognitive Assessment , Head to toe Assessment , Medications. Response: After interactions and interventions patient responded in the following manner, Calm , Compliant ,Cooperative. Continue to assess behaviors and condition will continue to monitor throughout the shift as needed. Patient educated on ADL's, and hand hygiene. 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 Continue to assess patient for changes in above assessment. Monitor for medication needs, pain, and safety concerns. Hourly rounding performed to ensure safe environment.
[2017-07-03 06:05] VITALS: BP 129/79
--- NOTE | 2017-07-03 08:57 | PN ---
DATE: 07/01/2017 This late entry 07/01/2017 covers elements not covered in my initial note 07/01/2017, met with the patient in the evening of 07/01/2017. Briefly met with the patient's daughter and son-in-law who are visiting from [place]. He has been withdrawn to his room, aware that he is in the hospital, did not remember the name of the hospital or the city. Appetite is better. REVIEW OF SYSTEMS: Ambulation impaired with a walker. No CV, , pulmonary, eye, ENT system symptoms on review. MENTAL STATUS EXAM: Oriented to himself and situation. Speech moderate latency, coherent. Abstraction fair, computation impaired, language function intact. Mood and affect still somewhat withdrawn, but showing improvement. LABORATORY DATA: Reviewed. IMPRESSION: Major depressive disorder with psychotic features, in partial remission. Rest unchanged from before; cognitive disorder, unspecified. PLAN: Continue psychotropics mentioned in my initial note. Prozac 30 mg a day, Risperdal 0.5 mg at bedtime, Namenda 10 mg b.i.d., Zyprexa p.r.n. MAN Huan RINCON MD DR: SHAZIA/shanta JOB#: [id number] / [id number]
[2017-07-03] MEDS: MEMANTINE 10 MG TABLET. PO SCH ×2 (09:57→19:29)
[2017-07-03] MEDS: FLECAINIDE 50 MG TABLET. PO SCH ×2 (09:57→19:45)
[2017-07-03] MEDS: POTASSIUM CHLORIDE 20 MEQ/15 ML ORAL LIQUID. PO SCH (09:57)
[2017-07-03] MEDS: CARVEDILOL 3.125 MG TABLET PO SCH ×2 (09:58→17:13)
[2017-07-03] MEDS: DOCUSATE SODIUM 100 MG CAPSULE PO SCH ×2 (09:58→19:29)
[2017-07-03] MEDS: KETOTIFEN FUMARATE 0.025% OPHT SOLUTION BOTTLE. OU SCH ×2 (09:59→19:30)
[2017-07-03] MEDS: CHOLECALCIFEROL (VITAMIN D3) 50,000 UNIT CAPSULE PO SCH (09:59)
--- NOTE | 2017-07-03 10:57 | NUR ---
SW was asked by Plumber Supervisor to review paperwork brought by Pt's dtr Sarah and her , Sagar. They met w/this SW in SW's office and presented [facility] forms to have pt complete. Sagar stated he was attempting to access pt's records at [facility] to submit for review to see if pt could be considered for an increase in his [facility] w/the [facility]. SW reviewed the forms, which were highlighted by the [facility] for pt's completion. One of the documents asked for pt. to provide DPOA permission to access the [facility] records. SW asked Sagar if he was aware the form was either asking for DPOA signature, which he is not the DPOA, or if the form was providing permission for Sagar to act as the DPOA. Sagar was unsure, but stated the form needed to be completed so that they could move forward w/communicating w/the [facility]. SW stated pt would not be able to sign DPOA paperwork while on this unit and have it be invoked for Sagar to act on his behalf since pt signed himself on the unit. SW explained it would be a conflict of interest while pt is on this unit. Sagar became very verbally aggressive w/this , accusing this SW of refusing to assist the pt. Sagar and his said that the man at the [facility] would not be available to meet w/on Friday and they would be flying back to [place] on Friday, thus this needed to be accomplished today. SW offered to have pt. ready for dc today so they could take the [facility] to the [facility] to continue working on the paperwork. Pt. is scheduled for dc on Friday, which family is already aware. Sagar stated the pt would not be able to navigate the [facility], even w/his help. TOI stated then the form for signature is not able to be accomplished at this time as his intentions are to "invoke DPOA due to pt's incapacitated status". Sagar refused to complete this discussion, standing up, yelling at this SW and storming out of the office. Pt's , Sarah followed, then came back into the office asking again, the reason why the paperwork could not be signed. This SW stated the conversation was over, this SW would not continue to be disrespected by either of them and the way there were speaking and treating this SW was not ok. Sarah then stormed out of the SW office calling this SW a "fucking bitch". Other employees in the dining room witnessed them both storming out of the office and heard Sarah call this SW a name. Sagar and Sarah requested to speak w/a supervisor spinning. They waiting in the elevator hallway until Customer Service Teller was available. SW briefed Dr. Porter and Chitra Alaniz of the situation and stated this SW was not comfortable w/allowing the pt to sign said paperwork at this time. Dr. Brittany Alaniz spoke w/family and determined pt could sign said paperwork.
--- NOTE | 2017-07-03 13:56 | NUR ---
[facility] Social Work Discharge Planning Form Patient Name KATIE BATISTA Admit Date: 06/19/17 DISCHARGE PLAN Discharge Destination: return home Transportation: family to hop picker 07/04/17 Special Instructions/Notes: Please fax dc summary to PCP DISCHARGE TO HOME: Address: [address] [place] [id number] Responsible [employer]: self Pharmacy: [facility] @ [address] [address] PHONE: [phone] Psychiatrist/Mental Health Follow Up: [address] [address] PHONE: [phone] Walk in appointments for starting services any time Friday thru from 9:0-2:00. Please request Psychiatrist services for medication follow up Primary Care Follow Up: Dr. Nany Gaines @ [address] [place] [address] PHONE: [phone] FAX: [phone] FOLLOW UP APPOINTMENT SCHEDULED FOR TUESDAY, JULY 11, 2017 @ 1:00pm.
[2017-07-03 16:04] VITALS: BP 120/77
--- NOTE | 2017-07-03 16:05 | NUR ---
Behavior Intervention Response and Plan: BIRP Note: Behavior: Assumed Care of patient, patient located in Patient Room at shift change. Patient exhibited the following behavior Calm, Withdrawn, Compliant. Brief assessment on rounds of vital signs, medication needs, lab studies, and pain. Treatment plan problems 1 and 2. Intervention: Patient assessed and the following interventions initiated safety checks 15 Minute Checks Cognitive Assessment , Head to toe Assessment , Medications. Response: After interactions and interventions patient responded in the following manner, Calm , Able to Focus on Task ,Compliant. Continue to assess behaviors and condition will continue to monitor throughout the shift as needed. Patient educated on ADL's, and hand hygiene. 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 Continue to assess patient for changes in above assessment. Monitor for medication needs, pain, and safety concerns. Hourly rounding performed to ensure safe environment.
--- NOTE | 2017-07-03 17:27 | NUR ---
patient refusing to come out of his room for dinner. Able to convince pt with much encouragement to come to dining room for dinner.
[2017-07-03] MEDS: TAMSULOSIN 0.4 MG CAP.ER.24H. PO SCH (19:28)
[2017-07-03] MEDS: risperiDONE ORAL 1 MG/ML 30ml BOTTLE. SL SCH (19:30)
--- NOTE | 2017-07-03 19:58 | PDOC ---
Exam Note: Óscar Note: Please also refer to the separate dictated note~for this date of service dictated separately.~Patient seen individually. Discussed the patient with Nursing staff reviewed the chart.~Reviewed interim history and current functioning. Reviewed vital signs,~Labs/ Radiology~and current medications noted below. Continue current treatment with the changes noted in the dictated addendum note Assessment: Vital Signs: Vital Signs Date Time Temp Pulse Resp B/P (MAP) Pulse Ox O2 Delivery O2 Flow Rate FiO2 07/03/17 19:45 61 117/64 07/03/17 16:04 97.8 18 99 Room Air I&O Intake and Output 07/03/17 07:00 Intake Total 540 ml Balance 540 ml Intake Oral 540 ml # Voids 3 # Bowel Movements 1 Current Medications: Meds: Current Medications Acetaminophen (Tylenol) 650 mg PRN Q6HRS PRN PO PAIN / TEMP; Start 06/19/17 at 04:00; Stop 06/19/17 at 19:17; Status DC Al Hydroxide/Mg Hydroxide (Mylanta Plus Xs) 15 ml PRN AFTMEALHC PRN PO DYSPEPSIA; Start 06/19/17 at 04:00 Magnesium Hydroxide (Milk Of Magnesia) 2,400 mg PRN QHS PRN PO CONSTIPATION; Start 06/19/17 at 04:00 Olanzapine (ZyPREXA ZYDIS) 1.25 mg PRN Q2HR PRN PO PSYCHOSIS; Start 06/19/17 at 04:00 Acetaminophen (Tylenol) 650 mg PRN Q6HRS PRN PO PAIN Last administered on 06/22 04:58; Start 06/19/17 at 05:30 Docusate Sodium (Colace) 100 mg BID PO Last administered on 07/03/17 19:29; Start 06/19/17 at 09:00 Ketotifen Fumarate (Zaditor) 1 drop BID OU Last administered on 07/03/17 19: 30; Start 06/19/17 at 09:00 Metoprolol Tartrate (Lopressor) 25 mg BID PO Last administered on 06/26/17 08 :07; Start 06/19/17 at 09:00; Stop 06/26/17 at 18:01; Status DC Potassium Chloride (KCl Oral Soln) 20 meq DAILY08 PO Last administered on 07/03 09:57; Start 06/19/17 at 08:00 Tamsulosin HCl (Flomax) 0.4 mg HS PO Last administered on 06/25/17 20:09; Start 06/19/17 at 21:00; Stop 06/26/17 at 18:02; Status DC Vitamin D (Vitamin D3) 50,000 unit WEEKLY PO Last administered on 07/03/17 09 :59; Start 06/19/17 at 09:00 Flecainide Acetate (Tambocor) 50 mg Q12HR PO Last administered on 07/03/17 19 :45; Start 06/19/17 at 09:00 Memantine (Namenda) 5 mg DAILY PO Last administered on 06/26/17 08:07; Start 06/20/17 at 09:00; Stop 06/26/17 at 10:40; Status DC Quetiapine Fumarate (SEROquel) 12.5 mg QHS PO Last administered on 06/19/17 20:22; Start 06/19/17 at 21:00; Stop 06/20/17 at 19:25; Status DC Risperidone (RisperDAL) 0.25 mg QHS SL Last administered on 06/23/17 19:29; Start 06/20/17 at 21:00; Stop 06/24/17 at 17:36; Status DC Fluoxetine HCl (PROzac) 10 mg DAILY PO Last administered on 06/23/17 08:06; Start 06/21/17 at 09:00; Stop 06/24/17 at 17:36; Status DC Fluoxetine HCl (PROzac) 20 mg DAILY PO Last administered on 06/27/17 07:50; Start 06/25/17 at 09:00; Stop 06/27/17 at 17:51; Status DC Risperidone (RisperDAL) 0.5 mg QHS SL Last administered on 07/03/17 19:30; Start 06/24/17 at 21:00 Memantine (Namenda) 10 mg DAILY PO Last administered on 06/29/17 08:00; Start 06/27/17 at 09:00; Stop 06/30/17 at 09:00; Status DC Memantine (Namenda) 10 mg BID PO Last administered on 07/03/17 19:29; Start 06/30/17 at 09:00 Metoprolol Tartrate (Lopressor) 12.5 mg BID PO Last administered on 06/29/17 19:32; Start 06/26/17 at 21:00; Stop 06/29/17 at 20:06; Status DC Tamsulosin HCl (Flomax) 0.8 mg HS PO Last administered on 07/03/17 19:28; Start 06/26/17 at 21:00 Fluoxetine HCl (PROzac) 30 mg DAILY PO Last administered on 07/03/17 09:57; Start 06/28/17 at 09:00 Carvedilol (Coreg) 3.125 mg BIDWMEALS PO Last administered on 07/03/17 17:13 ; Start 06/30/17 at 08:00 Active Scripts Active Flecainide Acetate 100 Mg Tablet 50 Mg PO Q12HR 90 Days Metoprolol Tartrate 25 Mg Tablet 1 Tab PO BID 90 Days LAST DOSE GIVEN: DATE: TIME: NEXT DOSE DUE: DATE: TIME: Reported Flomax (Tamsulosin Hcl) 0.4 Mg Cap.er.24h 1 Cap PO HS Zaditor (Ketotifen Fumarate) 5 Ml Drops 1 Drop EACHEYE BID Vitamin D3 (Cholecalciferol (Vitamin D3)) 5,000 Unit Tablet 50,000 Unit PO WEEKLY Tylenol (Acetaminophen) 325 Mg Tablet 650 Mg PO PRN Q6HRS PRN Colace (Docusate Sodium) 100 Mg Capsule 1 Cap PO BID Potassium Chloride Oral Liquid (Potassium Chloride) 20 Meq/15 Ml Liquid 20 Meq PEG DAILY LAST DOSE GIVEN: DATE: TIME: NEXT DOSE DUE: DATE: TIME: I have reviewed the current psychotropics carefully including drug interactions. Risk benefit ratio favors no change other than as noted in my dictated progress note. Diagnosis: Problems: (1) Syncopal episodes (2) Weakness (3) PSVT (paroxysmal supraventricular tachycardia) (4) Cardiac syncope (5) Anxiety disorder (6) Mild cognitive disorder (7) Impulse control disorder (8) Major depressive disorder, recurrent episode CHELSEA RINCON MD Jul 03, 2017 19:58
--- NOTE | 2017-07-03 22:37 | NUR ---
Behavior Intervention Response and Plan: BIRP Note: Behavior: Assumed Care of patient, patient located in Patient Room at shift change. Patient exhibited the following behavior Drowsy, Withdrawn, Compliant. Brief assessment on rounds of vital signs, medication needs, lab studies, and pain. Treatment plan problems Alteration in Mood and Fall Risk. Intervention: Patient assessed and the following interventions initiated safety checks 15 Minute Checks Cognitive Assessment , Medications , Oral Hydration. Response: After interactions and interventions patient responded in the following manner, Calm , Compliant ,Drowsy. Continue to assess behaviors and condition will continue to monitor throughout the shift as needed. Patient educated on ADL's, and hand hygiene. Plan: Continue to monitor Master Treatment Plan for patient's progress toward short term goals of Decreased Agitation, Decreased Anxiety, superintendent terminal goals to return to previous living setting vs placement. Continue to assess patient for changes in above assessment. Monitor for medication needs, pain, and safety concerns. Hourly rounding performed to ensure safe environment.
[2017-07-04 05:59] VITALS: BP 150/92
[2017-07-04] MEDS: MEMANTINE 10 MG TABLET. PO SCH ×2 (08:25→20:34)
[2017-07-04] MEDS: POTASSIUM CHLORIDE 20 MEQ/15 ML ORAL LIQUID. PO SCH (08:25)
[2017-07-04] MEDS: CARVEDILOL 3.125 MG TABLET PO SCH ×2 (08:26→17:51)
[2017-07-04] MEDS: DOCUSATE SODIUM 100 MG CAPSULE PO SCH ×2 (08:26→20:34)
[2017-07-04] MEDS: FLECAINIDE 50 MG TABLET. PO SCH ×2 (08:29→20:33)
[2017-07-04] MEDS: KETOTIFEN FUMARATE 0.025% OPHT SOLUTION BOTTLE. OU SCH ×2 (08:29→20:34)
--- NOTE | 2017-07-04 09:21 | NUR ---
TOI spoke w/Dr. Porter who initially canceled discharge for today due to concerns w/pt returning home w/his . SW provided additional information regarding the current situation involving the lack of Guardianship for pt and pt's 's unwillingness to complete a Medicaid application form. Pt's dtr Sarah and son in law Sagar are attempting to qualify pt for additional [facility]ness w[facility] for possible [facility], however, that is a process and will not be completed immediately. The fact of lack of Guardianship still remains as well. 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 TOI asked for additional ideas for dc and Dr. Porter offered possible assisted living in the area. This SW has been told the family does not have the financial means to pay for placement. TOI was advised by Dr. Porter to contact pt's dtr and son in law and discuss the possibility of pt remaining at this hospital, at least thru the weekend, if the family is continuing to work on additional placement/support options. SW attempted to contact Sagar, left a message. Sagar will likely arrive to apple picking supervisor pt in which SW will provide the information as requested by Dr. Porter and allow the family to decide on the dc date and plan.
[2017-07-04] MEDS ORDERED: FLUO40CA9 PO (09:34)
[2017-07-04] MEDS ORDERED: MAG360OR24 PO (09:42)
[2017-07-04] MEDS ORDERED: MAG355OR12 PO (09:42)
[2017-07-04] MEDS ORDERED: MAGN2400 PO (09:44)
[2017-07-04] MEDS ORDERED: MEMA10TA PO (09:45)
[2017-07-04] MEDS ORDERED: OLAN5TAB9 PO (09:47)
[2017-07-04] MEDS ORDERED: CARV3.12 PO (09:53)
[2017-07-04] MEDS ORDERED: RISP0.5T3 PO (09:56)
[2017-07-04] MEDS ORDERED: RISP0.5T24 SL (09:59)
--- NOTE | 2017-07-04 13:30 | NUR ---
Elvis w/[facility] came to facility to assess pt for possible placement. Per Elvis, family toured the facility earlier this am. TOI introduced Elvis to pt as pt lay in bed. Pt verbalized he felt like he was living in a dream. SW asked pt if he would be willing to go and live at a new apartment where people would be available to help w/his meals, laundry, house cleaning and help take care of pt. PT put his hands over his head, shaking his head, stating "this can't be reality". TOI and Elvis asked pt several times if he would be willing to stay at a new place and pt did not verbalize yes. SW provided Elvis w/pt information for review. SW stated SW would contact the family and see if they would be able to meet w/pt to help him to understand his need for assistance. TOI left a 2nd message for pt's son in law, Sagar to further discuss dc plans. Toi then contacted pt's dtr, Allison as TOI has been unable to reach Sagar. Allison told this SW to contact her sister, Sarah, as she is the one who has been working on this. TOI stated TOI has left 2 messages for Sagar, who has not returned a call at this time. Allison then became angry w/this TOI, telling this TOI to call Sarah. TOI stated TOI did not have Sarah's phone number. Allison yelled the phone at . TOI asked if Allison was upset w/this TOI. Allison yelled, "you know damn well what you did", and then hung the phone up on . TOI then contacted Sarah at the number provided by Allison, . Sarah was very pleasant to TOI as TOI stated [facility] had been out to assess pt, but he was not agreeable at this time to go. TOI asked if family had plans to meet w/pt today to help further convince him to go to residence, as [facility] requires pt to willingly sign himself into facility. Sarah stated she would talk w/her , who was sitting right beside her about coming to facility. TOI offered for them to come before visiting hours so they have sufficient time to coordinate everything. TOI asked they contact TOI when they know what time they would be on unit. SW notified Payroll Services Analyst of their possible presence on the unit prior to visiting hours, and to also assist w/any potential issues that may arise.
--- NOTE | 2017-07-04 14:38 | NUR ---
SW received call from Elvis at [facility] stating pt's family had just left the facility regarding possible admit. Elvis asked the family about pt's previous admit to this facility in May and pt's history of aggression. Per Elvis, family was very evasive w/their information, stating they are not able to provide details about the previous admit. Elvis encouraged family to follow up w/this , however, Sagar stated he would not be coordinating efforts w/[facility] at this time. Elvis does not feel [facility] can meet pt's needs based on the admit information provided by this facility. Elvis reported to family pt is not agreeable to admitting to the facility and pt was not even agreeable to stand for them to do a physical evaluation. Pt's family was given the referral packet and encouraged to follow up w/[facility] skilled facility. Family left [facility] and was headed directly to the skilled facility. SW has not received a return call from family nor have they arrived on this unit to discuss dc plans w/pt. Aluminum Boat Inspector updated w/current situation. RN advised to only meet w/family in the presence of Aluminum Boat Inspector.
[2017-07-04 16:02] VITALS: BP 150/71
--- NOTE | 2017-07-04 17:02 | NUR ---
SW was requested by pt's family, dtr Jennifer, her Sagar and pt's son Matt to further discuss dc plans. TOI requested Property Claims Manager to be present for the meeting. Family reported to SW they were told "No" by Elvis at [facility], and they reported understanding the reasons. They then spoke w/the [facility] who told the family they required $200,000 up front and then $8000/month in fees. The family is not able to provide this financially for pt at this time. Sagar reported they have been in touch w/a second mate and hope to be establishing Guardianship soon. SW offered a possible alternative to family in the interim of hiring private duty in home care for a few hours a day. Family is unsure if pt and his would allow for someone to come into their home to assist them. SW also offered home health, but explained that would be very short term. Family is supportive of private duty care and asked this SW for referrals. SW provided family w/a list generated from the [employer], and indicated to family the list is not inclusive to people w/a Dementia diagnosis, it is just provided by that organization. Family was very appreciative of the referral list. SW assisted family w/questions to ask as they contact various agencies. Family is supportive of pt remaining at this facility until mid next week. They will be leaving for [place] on Friday and have asked pt's son, Jaya, to be the contact for further planning. Sw will follow up w/Jaya next week to see if pt's would be willing to allow for an agency to assist in the home. Jaya Keith and Sarah shook this SW's hand, stated they were very appreciative of the help this SW has provided. SW reiterated this SW only wants what is best for pt, and acknowledged the difficulty the family has endured in navigating the legal system this week.
--- NOTE | 2017-07-04 17:51 | PDOC ---
Exam Note: Óscar Note: Please also refer to the separate dictated note~for this date of service dictated separately.~Patient seen individually. Discussed the patient with Nursing staff reviewed the chart.~Reviewed interim history and current functioning. Reviewed vital signs,~Labs/ Radiology~and current medications noted below. Continue current treatment with the changes noted in the dictated addendum note Assessment: Vital Signs: Vital Signs Date Time Temp Pulse Resp B/P (MAP) Pulse Ox O2 Delivery O2 Flow Rate FiO2 07/04/17 16:02 97.0 64 16 150/71 (97) 95 07/03/17 16:04 Room Air I&O Intake and Output 07/04/17 06:59 Intake Total 540 ml Balance 540 ml Intake Oral 540 ml Current Medications: Meds: Current Medications Acetaminophen (Tylenol) 650 mg PRN Q6HRS PRN PO PAIN / TEMP; Start 06/19/17 at 04:00; Stop 06/19/17 at 19:17; Status DC Al Hydroxide/Mg Hydroxide (Mylanta Plus Xs) 15 ml PRN AFTMEALHC PRN PO DYSPEPSIA; Start 06/19/17 at 04:00 Magnesium Hydroxide (Milk Of Magnesia) 2,400 mg PRN QHS PRN PO CONSTIPATION; Start 06/19/17 at 04:00 Olanzapine (ZyPREXA ZYDIS) 1.25 mg PRN Q2HR PRN PO PSYCHOSIS; Start 06/19/17 at 04:00 Acetaminophen (Tylenol) 650 mg PRN Q6HRS PRN PO PAIN Last administered on 06/22 04:58; Start 06/19/17 at 05:30 Docusate Sodium (Colace) 100 mg BID PO Last administered on 07/04/17 08:26; Start 06/19/17 at 09:00 Ketotifen Fumarate (Zaditor) 1 drop BID OU Last administered on 07/04/17 08: 29; Start 06/19/17 at 09:00 Metoprolol Tartrate (Lopressor) 25 mg BID PO Last administered on 06/26/17 08 :07; Start 06/19/17 at 09:00; Stop 06/26/17 at 18:01; Status DC Potassium Chloride (KCl Oral Soln) 20 meq DAILY08 PO Last administered on 07/04 08:25; Start 06/19/17 at 08:00 Tamsulosin HCl (Flomax) 0.4 mg HS PO Last administered on 06/25/17 20:09; Start 06/19/17 at 21:00; Stop 06/26/17 at 18:02; Status DC Vitamin D (Vitamin D3) 50,000 unit WEEKLY PO Last administered on 07/03/17 09 :59; Start 06/19/17 at 09:00 Flecainide Acetate (Tambocor) 50 mg Q12HR PO Last administered on 07/04/17 08 :29; Start 06/19/17 at 09:00 Memantine (Namenda) 5 mg DAILY PO Last administered on 06/26/17 08:07; Start 06/20/17 at 09:00; Stop 06/26/17 at 10:40; Status DC Quetiapine Fumarate (SEROquel) 12.5 mg QHS PO Last administered on 06/19/17 20:22; Start 06/19/17 at 21:00; Stop 06/20/17 at 19:25; Status DC Risperidone (RisperDAL) 0.25 mg QHS SL Last administered on 06/23/17 19:29; Start 06/20/17 at 21:00; Stop 06/24/17 at 17:36; Status DC Fluoxetine HCl (PROzac) 10 mg DAILY PO Last administered on 06/23/17 08:06; Start 06/21/17 at 09:00; Stop 06/24/17 at 17:36; Status DC Fluoxetine HCl (PROzac) 20 mg DAILY PO Last administered on 06/27/17 07:50; Start 06/25/17 at 09:00; Stop 06/27/17 at 17:51; Status DC Risperidone (RisperDAL) 0.5 mg QHS SL Last administered on 07/03/17 19:30; Start 06/24/17 at 21:00 Memantine (Namenda) 10 mg DAILY PO Last administered on 06/29/17 08:00; Start 06/27/17 at 09:00; Stop 06/30/17 at 09:00; Status DC Memantine (Namenda) 10 mg BID PO Last administered on 07/04/17 08:25; Start 06/30/17 at 09:00 Metoprolol Tartrate (Lopressor) 12.5 mg BID PO Last administered on 06/29/17 19:32; Start 06/26/17 at 21:00; Stop 06/29/17 at 20:06; Status DC Tamsulosin HCl (Flomax) 0.8 mg HS PO Last administered on 07/03/17 19:28; Start 06/26/17 at 21:00 Fluoxetine HCl (PROzac) 30 mg DAILY PO Last administered on 07/04/17 08:28; Start 06/28/17 at 09:00; Stop 07/04/17 at 17:00; Status DC Carvedilol (Coreg) 3.125 mg BIDWMEALS PO Last administered on 07/04/17 08:26 ; Start 06/30/17 at 08:00 Fluoxetine HCl (PROzac) 40 mg DAILY PO ; Start 07/05/17 at 09:00 Active Scripts Active Flecainide Acetate 100 Mg Tablet 50 Mg PO Q12HR 90 Days Metoprolol Tartrate 25 Mg Tablet 1 Tab PO BID 90 Days LAST DOSE GIVEN: DATE: TIME: NEXT DOSE DUE: DATE: TIME: Reported Risperdal (Risperidone) 0.5 Mg Tablet 0.5 Mg SL QHS Risperidone 0.5 Mg Tablet 0.5 Mg PO QHS Coreg (Carvedilol) 3.125 Mg Tablet 3.125 Mg PO BIDWMEALS Olanzapine 5 Mg Tablet 1.25 Mg PO PRN PRN Namenda (Memantine Hcl) 10 Mg Tablet 10 Mg PO BID Milk Of Magnesia (Magnesium Hydroxide) 2,400 Mg/10 Ml Oral.susp 2,400 Mg PO PRN Maalox Maximum Strength Susp (Mag Hydrox/Al Hydrox/Simeth) 355 Ml Oral.susp 15 Ml PO PRN Alum-Mag Hydroxide-Simeth Liq (Mag Hydrox/Al Hydrox/Simeth) 360 Ml Oral.susp 15 Ml PO PRN Prozac (Fluoxetine Hcl) 40 Mg Capsule 30 Mg PO DAILY Flomax (Tamsulosin Hcl) 0.4 Mg Cap.er.24h 1 Cap PO HS Zaditor (Ketotifen Fumarate) 5 Ml Drops 1 Drop EACHEYE BID Vitamin D3 (Cholecalciferol (Vitamin D3)) 5,000 Unit Tablet 50,000 Unit PO WEEKLY Tylenol (Acetaminophen) 325 Mg Tablet 650 Mg PO PRN Q6HRS PRN Colace (Docusate Sodium) 100 Mg Capsule 1 Cap PO BID Potassium Chloride Oral Liquid (Potassium Chloride) 20 Meq/15 Ml Liquid 20 Meq PEG DAILY LAST DOSE GIVEN: DATE: TIME: NEXT DOSE DUE: DATE: TIME: I have reviewed the current psychotropics carefully including drug interactions. Risk benefit ratio favors no change other than as noted in my dictated progress note. Diagnosis: Problems: (1) Major depressive disorder, recurrent episode (2) Impulse control disorder (3) Mild cognitive disorder (4) Anxiety disorder CHELSEA RINCON MD Jul 04, 2017 17:51
--- NOTE | 2017-07-04 18:27 | NUR ---
Behavior Intervention Response and Plan: BIRP Note: Behavior: Assumed Care of patient, patient located in Patient Room at shift change. Patient exhibited the following behavior Withdrawn, Compliant, Anxious. Brief assessment on rounds of vital signs, medication needs, lab studies, and pain. Treatment plan problems Alteration in Mood and Fall risk. Intervention: Patient assessed and the following interventions initiated safety checks 15 Minute Checks Oral Hydration , Medications , Cognitive Assessment. Response: After interactions and interventions patient responded in the following manner, Withdrawn , Disorganized ,Anxious. Continue to assess behaviors and condition will continue to monitor throughout the shift as needed. Patient educated on ADL's, and hand hygiene. Plan: Continue to monitor Master Treatment Plan for patient's progress toward short term goals of Decreased Agitation, Decreased Aggression, intermediate goals to return to previous living setting vs placement. Continue to assess patient for changes in above assessment. Monitor for medication needs, pain, and safety concerns. Hourly rounding performed to ensure safe environment.
--- NOTE | 2017-07-04 19:56 | PDOC ---
Exam Note: Óscar Note: Please also refer to the separate dictated note~for this date of service dictated separately.~Patient seen individually. Discussed the patient with Nursing staff reviewed the chart.~Reviewed interim history and current functioning. Reviewed vital signs,~Labs/ Radiology~and current medications noted below. Continue current treatment with the changes noted in the dictated addendum note Assessment: Vital Signs: Vital Signs Date Time Temp Pulse Resp B/P (MAP) Pulse Ox O2 Delivery O2 Flow Rate FiO2 07/04/17 17:51 64 150/71 07/04/17 16:02 97.0 16 95 07/03/17 16:04 Room Air I&O Intake and Output 07/04/17 07:00 Intake Total 540 ml Balance 540 ml Intake Oral 540 ml Current Medications: Meds: Current Medications Acetaminophen (Tylenol) 650 mg PRN Q6HRS PRN PO PAIN / TEMP; Start 06/19/17 at 04:00; Stop 06/19/17 at 19:17; Status DC Al Hydroxide/Mg Hydroxide (Mylanta Plus Xs) 15 ml PRN AFTMEALHC PRN PO DYSPEPSIA; Start 06/19/17 at 04:00 Magnesium Hydroxide (Milk Of Magnesia) 2,400 mg PRN QHS PRN PO CONSTIPATION; Start 06/19/17 at 04:00 Olanzapine (ZyPREXA ZYDIS) 1.25 mg PRN Q2HR PRN PO PSYCHOSIS; Start 06/19/17 at 04:00 Acetaminophen (Tylenol) 650 mg PRN Q6HRS PRN PO PAIN Last administered on 06/22 04:58; Start 06/19/17 at 05:30 Docusate Sodium (Colace) 100 mg BID PO Last administered on 07/04/17 08:26; Start 06/19/17 at 09:00 Ketotifen Fumarate (Zaditor) 1 drop BID OU Last administered on 07/04/17 08: 29; Start 06/19/17 at 09:00 Metoprolol Tartrate (Lopressor) 25 mg BID PO Last administered on 06/26/17 08 :07; Start 06/19/17 at 09:00; Stop 06/26/17 at 18:01; Status DC Potassium Chloride (KCl Oral Soln) 20 meq DAILY08 PO Last administered on 07/04 08:25; Start 06/19/17 at 08:00 Tamsulosin HCl (Flomax) 0.4 mg HS PO Last administered on 06/25/17 20:09; Start 06/19/17 at 21:00; Stop 06/26/17 at 18:02; Status DC Vitamin D (Vitamin D3) 50,000 unit WEEKLY PO Last administered on 07/03/17 09 :59; Start 06/19/17 at 09:00 Flecainide Acetate (Tambocor) 50 mg Q12HR PO Last administered on 07/04/17 08 :29; Start 06/19/17 at 09:00 Memantine (Namenda) 5 mg DAILY PO Last administered on 06/26/17 08:07; Start 06/20/17 at 09:00; Stop 06/26/17 at 10:40; Status DC Quetiapine Fumarate (SEROquel) 12.5 mg QHS PO Last administered on 06/19/17 20:22; Start 06/19/17 at 21:00; Stop 06/20/17 at 19:25; Status DC Risperidone (RisperDAL) 0.25 mg QHS SL Last administered on 06/23/17 19:29; Start 06/20/17 at 21:00; Stop 06/24/17 at 17:36; Status DC Fluoxetine HCl (PROzac) 10 mg DAILY PO Last administered on 06/23/17 08:06; Start 06/21/17 at 09:00; Stop 06/24/17 at 17:36; Status DC Fluoxetine HCl (PROzac) 20 mg DAILY PO Last administered on 06/27/17 07:50; Start 06/25/17 at 09:00; Stop 06/27/17 at 17:51; Status DC Risperidone (RisperDAL) 0.5 mg QHS SL Last administered on 07/03/17 19:30; Start 06/24/17 at 21:00 Memantine (Namenda) 10 mg DAILY PO Last administered on 06/29/17 08:00; Start 06/27/17 at 09:00; Stop 06/30/17 at 09:00; Status DC Memantine (Namenda) 10 mg BID PO Last administered on 07/04/17 08:25; Start 06/30/17 at 09:00 Metoprolol Tartrate (Lopressor) 12.5 mg BID PO Last administered on 06/29/17 19:32; Start 06/26/17 at 21:00; Stop 06/29/17 at 20:06; Status DC Tamsulosin HCl (Flomax) 0.8 mg HS PO Last administered on 07/03/17 19:28; Start 06/26/17 at 21:00 Fluoxetine HCl (PROzac) 30 mg DAILY PO Last administered on 07/04/17 08:28; Start 06/28/17 at 09:00; Stop 07/04/17 at 17:00; Status DC Carvedilol (Coreg) 3.125 mg BIDWMEALS PO Last administered on 07/04/17 17:51 ; Start 06/30/17 at 08:00 Fluoxetine HCl (PROzac) 40 mg DAILY PO ; Start 07/05/17 at 09:00 Active Scripts Active Flecainide Acetate 100 Mg Tablet 50 Mg PO Q12HR 90 Days Metoprolol Tartrate 25 Mg Tablet 1 Tab PO BID 90 Days LAST DOSE GIVEN: DATE: TIME: NEXT DOSE DUE: DATE: TIME: Reported Risperdal (Risperidone) 0.5 Mg Tablet 0.5 Mg SL QHS Risperidone 0.5 Mg Tablet 0.5 Mg PO QHS Coreg (Carvedilol) 3.125 Mg Tablet 3.125 Mg PO BIDWMEALS Olanzapine 5 Mg Tablet 1.25 Mg PO PRN PRN Namenda (Memantine Hcl) 10 Mg Tablet 10 Mg PO BID Milk Of Magnesia (Magnesium Hydroxide) 2,400 Mg/10 Ml Oral.susp 2,400 Mg PO PRN Maalox Maximum Strength Susp (Mag Hydrox/Al Hydrox/Simeth) 355 Ml Oral.susp 15 Ml PO PRN Alum-Mag Hydroxide-Simeth Liq (Mag Hydrox/Al Hydrox/Simeth) 360 Ml Oral.susp 15 Ml PO PRN Prozac (Fluoxetine Hcl) 40 Mg Capsule 30 Mg PO DAILY Flomax (Tamsulosin Hcl) 0.4 Mg Cap.er.24h 1 Cap PO HS Zaditor (Ketotifen Fumarate) 5 Ml Drops 1 Drop EACHEYE BID Vitamin D3 (Cholecalciferol (Vitamin D3)) 5,000 Unit Tablet 50,000 Unit PO WEEKLY Tylenol (Acetaminophen) 325 Mg Tablet 650 Mg PO PRN Q6HRS PRN Colace (Docusate Sodium) 100 Mg Capsule 1 Cap PO BID Potassium Chloride Oral Liquid (Potassium Chloride) 20 Meq/15 Ml Liquid 20 Meq PEG DAILY LAST DOSE GIVEN: DATE: TIME: NEXT DOSE DUE: DATE: TIME: I have reviewed the current psychotropics carefully including drug interactions. Risk benefit ratio favors no change other than as noted in my dictated progress note. Diagnosis: Problems: (1) Anxiety disorder (2) Mild cognitive disorder (3) Impulse control disorder (4) Major depressive disorder, recurrent episode CHELSEA RINCON MD Jul 04, 2017 19:56
[2017-07-04] MEDS: TAMSULOSIN 0.4 MG CAP.ER.24H. PO SCH (20:34)
[2017-07-04] MEDS: risperiDONE ORAL 1 MG/ML 30ml BOTTLE. SL SCH (20:35)
--- NOTE | 2017-07-05 01:45 | NUR ---
Behavior Intervention Response and Plan: BIRP Note: Behavior: Assumed Care of patient, patient located in Patient Room at shift change. Patient exhibited the following behavior Withdrawn, Calm, Compliant. Brief assessment on rounds of vital signs, medication needs, lab studies, and pain. Treatment plan problems Alteration in Mood and Fall Risk. Intervention: Patient assessed and the following interventions initiated safety checks 15 Minute Checks Cognitive Assessment , Medications , Oral Hydration. Response: After interactions and interventions patient responded in the following manner, Calm , Compliant ,Withdrawn. Continue to assess behaviors and condition will continue to monitor throughout the shift as needed. Patient educated on ADL's, and hand hygiene. 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 Continue to assess patient for changes in above assessment. Monitor for medication needs, pain, and safety concerns. Hourly rounding performed to ensure safe environment.
[2017-07-05 06:06] VITALS: BP 124/72
[2017-07-05] MEDS: MEMANTINE 10 MG TABLET. PO SCH ×2 (07:48→20:18)
[2017-07-05] MEDS: POTASSIUM CHLORIDE 20 MEQ/15 ML ORAL LIQUID. PO SCH (07:48)
[2017-07-05] MEDS: CARVEDILOL 3.125 MG TABLET PO SCH ×2 (07:48→18:05)
[2017-07-05] MEDS: DOCUSATE SODIUM 100 MG CAPSULE PO SCH ×2 (07:48→20:17)
[2017-07-05] MEDS: FLECAINIDE 50 MG TABLET. PO SCH ×2 (07:51→20:24)
[2017-07-05] MEDS: KETOTIFEN FUMARATE 0.025% OPHT SOLUTION BOTTLE. OU SCH ×2 (07:51→20:25)
--- NOTE | 2017-07-05 09:13 | NUR ---
Behavior Intervention Response and Plan: BIRP Note: Behavior: Assumed Care of patient, patient located in Dining Room at shift change. Patient exhibited the following behavior Withdrawn, Compliant, Calm. Brief assessment on rounds of vital signs, medication needs, lab studies, and pain. Treatment plan problems . Intervention: Patient assessed and the following interventions initiated safety checks 15 Minute Checks Cognitive Assessment , Head to toe Assessment , Medications. Response: After interactions and interventions patient responded in the following manner, Calm , Compliant ,Withdrawn. Continue to assess behaviors and condition will continue to monitor throughout the shift as needed. Patient educated on ADL's, and hand hygiene. 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 Continue to assess patient for changes in above assessment. Monitor for medication needs, pain, and safety concerns. Hourly rounding performed to ensure safe environment.
--- NOTE | 2017-07-05 10:20 | PN ---
DATE: 07/02/2017 This is a late entry, covers the elements not covered in my initial note 07/02/2017. SUBJECTIVE: The patient remains somewhat isolative, withdrawn, spends much time in his room, does come out for meals. Appetite is better. REVIEW OF SYSTEMS: Ambulation impaired with walker. No CV, , pulmonary, eye, ENT system symptoms on review. Does have some tremors, anxious. MENTAL STATUS EXAM: Oriented to himself and situation. Speech moderate latency, often response is monosyllabic. Abstraction fair, computation impaired, language function intact. Mood and affect still somewhat withdrawn, depressed. No active suicidal ideation. LABORATORY DATA: Reviewed. IMPRESSION: Major depressive disorder with psychotic features. Rest unchanged from initial note. PLAN: Continue psychotropics as mentioned in my initial note, adjust as indicated. MAN Huan RINCON MD DR: SHAZIA/shanta JOB#: [id number] / [id number]
--- NOTE | 2017-07-05 10:42 | PN ---
DATE: 07/04/2017 This is a late entry 07/03/2017, covers elements not covered in my initial note on 07/03/2017. SUBJECTIVE: The patient was staffed at a treatment team meeting at length morning of 07/03/2017 and also met with the patient's daughter and son-in-law in the morning since they wanted him to sign power of deputy county attorney papers, so that they could represent him at the [place] for his placement options. Also, met at great length with the entire family and the patient's evening of 07/03/2017 to discuss their concerns about the patient returning home with his . The herself is in a wheelchair, and it is just the two of them at home. The one daughter who was involved in his care. He is going to have knee surgery and will not be able to assist them. Neither one of them can drive or go for any grocery shopping. So, the psychosocial placement options are concerning necessitating us postponing the discharge, still we can make sure we have done all we can to help them find appropriate placement. Morning of 07/04/2017, I have discussed this with Sheila as well, and in the evening of 07/03/2017 with the nursing staff. He tries to come out at times for meals. Appetite is a little better at times, but on 07/03/2017, did not come out for breakfast and lunch. Said he was afraid. Slept 7 hours previous evening. REVIEW OF SYSTEMS: Ambulation impaired with walker. No CV, , pulmonary, eye system symptoms on review. Has some tremors. MENTAL STATUS EXAM: Speech has some latency, often responses monosyllabic. Abstraction fair, computation impaired, language function intact. Mood and affect somewhat depressed. LABORATORY DATA: Reviewed. IMPRESSION: Major depressive disorder with psychotic features; cognitive disorder, unspecified. PLAN: From a psychiatric standpoint, continue current psychotropics mentioned in my initial note. Prozac is at 30 mg a day starting 07/04/2017. We will increase it to 40 mg a day. Continue Risperdal at current dosage. MAN Huan RINCON MD DR: SHAZIA/shanta JOB#: [id number] / [id number]
--- NOTE | 2017-07-05 15:09 | NUR ---
Pt up to meals with encouragement. compliant with meds and cares. family to see at noon. visit went well. pt sitting up in bed awake.
[2017-07-05 15:53] VITALS: BP 149/89
--- NOTE | 2017-07-05 19:05 | PDOC ---
Exam Note: Óscar Note: Please also refer to the separate dictated note~for this date of service dictated separately.~Patient seen individually. Discussed the patient with Nursing staff reviewed the chart.~Reviewed interim history and current functioning. Reviewed vital signs,~Labs/ Radiology~and current medications noted below. Continue current treatment with the changes noted in the dictated addendum note Assessment: Vital Signs: Vital Signs Date Time Temp Pulse Resp B/P (MAP) Pulse Ox O2 Delivery O2 Flow Rate FiO2 07/05/17 18:05 86 149/89 07/05/17 15:53 97.7 20 99 07/03/17 16:04 Room Air I&O Intake and Output 07/05/17 06:59 Intake Total 480 ml Balance 480 ml Intake Oral 480 ml Current Medications: Meds: Current Medications Acetaminophen (Tylenol) 650 mg PRN Q6HRS PRN PO PAIN / TEMP; Start 06/19/17 at 04:00; Stop 06/19/17 at 19:17; Status DC Al Hydroxide/Mg Hydroxide (Mylanta Plus Xs) 15 ml PRN AFTMEALHC PRN PO DYSPEPSIA; Start 06/19/17 at 04:00 Magnesium Hydroxide (Milk Of Magnesia) 2,400 mg PRN QHS PRN PO CONSTIPATION; Start 06/19/17 at 04:00 Olanzapine (ZyPREXA ZYDIS) 1.25 mg PRN Q2HR PRN PO PSYCHOSIS; Start 06/19/17 at 04:00 Acetaminophen (Tylenol) 650 mg PRN Q6HRS PRN PO PAIN Last administered on 06/22 04:58; Start 06/19/17 at 05:30 Docusate Sodium (Colace) 100 mg BID PO Last administered on 07/05/17 07:48; Start 06/19/17 at 09:00 Ketotifen Fumarate (Zaditor) 1 drop BID OU Last administered on 07/05/17 07: 51; Start 06/19/17 at 09:00 Metoprolol Tartrate (Lopressor) 25 mg BID PO Last administered on 06/26/17 08 :07; Start 06/19/17 at 09:00; Stop 06/26/17 at 18:01; Status DC Potassium Chloride (KCl Oral Soln) 20 meq DAILY08 PO Last administered on 07/05 07:48; Start 06/19/17 at 08:00 Tamsulosin HCl (Flomax) 0.4 mg HS PO Last administered on 06/25/17 20:09; Start 06/19/17 at 21:00; Stop 06/26/17 at 18:02; Status DC Vitamin D (Vitamin D3) 50,000 unit WEEKLY PO Last administered on 07/03/17 09 :59; Start 06/19/17 at 09:00 Flecainide Acetate (Tambocor) 50 mg Q12HR PO Last administered on 07/05/17 07 :51; Start 06/19/17 at 09:00 Memantine (Namenda) 5 mg DAILY PO Last administered on 06/26/17 08:07; Start 06/20/17 at 09:00; Stop 06/26/17 at 10:40; Status DC Quetiapine Fumarate (SEROquel) 12.5 mg QHS PO Last administered on 06/19/17 20:22; Start 06/19/17 at 21:00; Stop 06/20/17 at 19:25; Status DC Risperidone (RisperDAL) 0.25 mg QHS SL Last administered on 06/23/17 19:29; Start 06/20/17 at 21:00; Stop 06/24/17 at 17:36; Status DC Fluoxetine HCl (PROzac) 10 mg DAILY PO Last administered on 06/23/17 08:06; Start 06/21/17 at 09:00; Stop 06/24/17 at 17:36; Status DC Fluoxetine HCl (PROzac) 20 mg DAILY PO Last administered on 06/27/17 07:50; Start 06/25/17 at 09:00; Stop 06/27/17 at 17:51; Status DC Risperidone (RisperDAL) 0.5 mg QHS SL Last administered on 07/04/17 20:35; Start 06/24/17 at 21:00 Memantine (Namenda) 10 mg DAILY PO Last administered on 06/29/17 08:00; Start 06/27/17 at 09:00; Stop 06/30/17 at 09:00; Status DC Memantine (Namenda) 10 mg BID PO Last administered on 07/05/17 07:48; Start 06/30/17 at 09:00 Metoprolol Tartrate (Lopressor) 12.5 mg BID PO Last administered on 06/29/17 19:32; Start 06/26/17 at 21:00; Stop 06/29/17 at 20:06; Status DC Tamsulosin HCl (Flomax) 0.8 mg HS PO Last administered on 07/04/17 20:34; Start 06/26/17 at 21:00 Fluoxetine HCl (PROzac) 30 mg DAILY PO Last administered on 07/04/17 08:28; Start 06/28/17 at 09:00; Stop 07/04/17 at 17:00; Status DC Carvedilol (Coreg) 3.125 mg BIDWMEALS PO Last administered on 07/05/17 18:05 ; Start 06/30/17 at 08:00 Fluoxetine HCl (PROzac) 40 mg DAILY PO Last administered on 07/05/17 07:51; Start 07/05/17 at 09:00 Active Scripts Active Flecainide Acetate 100 Mg Tablet 50 Mg PO Q12HR 90 Days Metoprolol Tartrate 25 Mg Tablet 1 Tab PO BID 90 Days LAST DOSE GIVEN: DATE: TIME: NEXT DOSE DUE: DATE: TIME: Reported Risperdal (Risperidone) 0.5 Mg Tablet 0.5 Mg SL QHS Risperidone 0.5 Mg Tablet 0.5 Mg PO QHS Coreg (Carvedilol) 3.125 Mg Tablet 3.125 Mg PO BIDWMEALS Olanzapine 5 Mg Tablet 1.25 Mg PO PRN PRN Namenda (Memantine Hcl) 10 Mg Tablet 10 Mg PO BID Milk Of Magnesia (Magnesium Hydroxide) 2,400 Mg/10 Ml Oral.susp 2,400 Mg PO PRN Maalox Maximum Strength Susp (Mag Hydrox/Al Hydrox/Simeth) 355 Ml Oral.susp 15 Ml PO PRN Alum-Mag Hydroxide-Simeth Liq (Mag Hydrox/Al Hydrox/Simeth) 360 Ml Oral.susp 15 Ml PO PRN Prozac (Fluoxetine Hcl) 40 Mg Capsule 30 Mg PO DAILY Flomax (Tamsulosin Hcl) 0.4 Mg Cap.er.24h 1 Cap PO HS Zaditor (Ketotifen Fumarate) 5 Ml Drops 1 Drop EACHEYE BID Vitamin D3 (Cholecalciferol (Vitamin D3)) 5,000 Unit Tablet 50,000 Unit PO WEEKLY Tylenol (Acetaminophen) 325 Mg Tablet 650 Mg PO PRN Q6HRS PRN Colace (Docusate Sodium) 100 Mg Capsule 1 Cap PO BID Potassium Chloride Oral Liquid (Potassium Chloride) 20 Meq/15 Ml Liquid 20 Meq PEG DAILY LAST DOSE GIVEN: DATE: TIME: NEXT DOSE DUE: DATE: TIME: I have reviewed the current psychotropics carefully including drug interactions. Risk benefit ratio favors no change other than as noted in my dictated progress note. Diagnosis: Problems: (1) Major depressive disorder, recurrent episode (2) Impulse control disorder (3) Mild cognitive disorder (4) Anxiety disorder CHELSEA RINCON MD Jul 05, 2017 19:04
[2017-07-05] MEDS: TAMSULOSIN 0.4 MG CAP.ER.24H. PO SCH (20:18)
[2017-07-05] MEDS: risperiDONE ORAL 1 MG/ML 30ml BOTTLE. SL SCH (20:26)
--- NOTE | 2017-07-05 22:27 | NUR ---
Behavior Intervention Response and Plan: BIRP Note: Behavior: Assumed Care of patient, patient located in Patient Room at shift change. Patient exhibited the following behavior Calm, Compliant, Cooperative. Brief assessment on rounds of vital signs, medication needs, lab studies, and pain. Treatment plan problems Alteration in Mood and Fall Risk. Intervention: Patient assessed and the following interventions initiated safety checks 15 Minute Checks Cognitive Assessment , Medications , Oral Hydration. Response: After interactions and interventions patient responded in the following manner, Calm , Compliant ,Drowsy. Continue to assess behaviors and condition will continue to monitor throughout the shift as needed. Patient educated on ADL's, and hand hygiene. 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 Continue to assess patient for changes in above assessment. Monitor for medication needs, pain, and safety concerns. Hourly rounding performed to ensure safe environment.
[2017-07-06 06:07] VITALS: BP 102/61
[2017-07-06] MEDS: POTASSIUM CHLORIDE 20 MEQ/15 ML ORAL LIQUID. PO SCH (07:29)
[2017-07-06] MEDS: MEMANTINE 10 MG TABLET. PO SCH ×2 (07:30→19:33)
[2017-07-06] MEDS: DOCUSATE SODIUM 100 MG CAPSULE PO SCH ×2 (07:30→19:32)
[2017-07-06] MEDS: CARVEDILOL 3.125 MG TABLET PO SCH ×2 (07:31→16:30)
[2017-07-06] MEDS: KETOTIFEN FUMARATE 0.025% OPHT SOLUTION BOTTLE. OU SCH ×2 (07:33→19:32)
[2017-07-06] MEDS: FLECAINIDE 50 MG TABLET. PO SCH ×2 (07:35→19:33)
--- NOTE | 2017-07-06 09:35 | NUR ---
Behavior Intervention Response and Plan: BIRP Note: Behavior: Assumed Care of patient, patient located in Dining Room at shift change. Patient exhibited the following behavior Withdrawn, Compliant, Calm. Brief assessment on rounds of vital signs, medication needs, lab studies, and pain. Treatment plan problems . Intervention: Patient assessed and the following interventions initiated safety checks 15 Minute Checks Cognitive Assessment , Head to toe Assessment , Medications. Response: After interactions and interventions patient responded in the following manner, Calm , Compliant ,Withdrawn. Continue to assess behaviors and condition will continue to monitor throughout the shift as needed. Patient educated on ADL's, and hand hygiene. 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 Continue to assess patient for changes in above assessment. Monitor for medication needs, pain, and safety concerns. Hourly rounding performed to ensure safe environment.
--- NOTE | 2017-07-06 09:52 | PN ---
DATE: 07/04/2017 PSYCHIATRIC PROGRESS NOTE This is a late entry 07/04/2017, covers elements not covered in my initial note of 07/04/2017. SUBJECTIVE: I met with the patient evening of 07/04/2017. The patient slept 8 hours previous evening. He withdraws to his room, states he cannot leave his room because of the noise and gets agitated. He did go for breakfast, quite agitated when another demented patient entered his room and he tried to get that patient out of the room, but was certainly not aggressive rather appropriate given the circumstances. REVIEW OF SYSTEMS: Ambulation impaired with walker. No CV, , pulmonary, eye, ENT system symptoms on review. MENTAL STATUS EXAM: Oriented to himself and situation. Speech moderate latency, often responses monosyllabic. Abstraction fair, computation impaired, language function intact, attention span short. Mood and affect is still depressed, withdrawn, but showing improvement. LABORATORY DATA: Reviewed. IMPRESSION: Major depressive disorder with psychotic features in partial remission; cognitive disorder, unspecified. PLAN: Continue current psychotropics mentioned in my initial note. MAN Huan RINCON MD DR: SHAZIA/shanta JOB#: [id number] / [id number]
[2017-07-06 15:57] VITALS: BP 154/87
--- NOTE | 2017-07-06 15:58 | NUR ---
pt up to meals. has been compliant with meds and cares. withdrawn to room.
[2017-07-06] MEDS: TAMSULOSIN 0.4 MG CAP.ER.24H. PO SCH (19:34)
[2017-07-06] MEDS: risperiDONE ORAL 1 MG/ML 30ml BOTTLE. SL SCH (19:37)
--- NOTE | 2017-07-06 20:21 | PDOC ---
Exam Note: Óscar Note: Please also refer to the separate dictated note~for this date of service dictated separately.~Patient seen individually. Discussed the patient with Nursing staff reviewed the chart.~Reviewed interim history and current functioning. Reviewed vital signs,~Labs/ Radiology~and current medications noted below. Continue current treatment with the changes noted in the dictated addendum note Assessment: Vital Signs: Vital Signs Date Time Temp Pulse Resp B/P (MAP) Pulse Ox O2 Delivery O2 Flow Rate FiO2 07/06/17 19:33 64 154/87 07/06/17 15:57 98.1 16 99 07/03/17 16:04 Room Air I&O Intake and Output 07/06/17 07:00 Intake Total 1080 ml Balance 1080 ml Intake Oral 1080 ml Current Medications: Meds: Current Medications Acetaminophen (Tylenol) 650 mg PRN Q6HRS PRN PO PAIN / TEMP; Start 06/19/17 at 04:00; Stop 06/19/17 at 19:17; Status DC Al Hydroxide/Mg Hydroxide (Mylanta Plus Xs) 15 ml PRN AFTMEALHC PRN PO DYSPEPSIA; Start 06/19/17 at 04:00 Magnesium Hydroxide (Milk Of Magnesia) 2,400 mg PRN QHS PRN PO CONSTIPATION; Start 06/19/17 at 04:00 Olanzapine (ZyPREXA ZYDIS) 1.25 mg PRN Q2HR PRN PO PSYCHOSIS; Start 06/19/17 at 04:00 Acetaminophen (Tylenol) 650 mg PRN Q6HRS PRN PO PAIN Last administered on 06/22 04:58; Start 06/19/17 at 05:30 Docusate Sodium (Colace) 100 mg BID PO Last administered on 07/06/17 19:32; Start 06/19/17 at 09:00 Ketotifen Fumarate (Zaditor) 1 drop BID OU Last administered on 07/06/17 19: 32; Start 06/19/17 at 09:00 Metoprolol Tartrate (Lopressor) 25 mg BID PO Last administered on 06/26/17 08 :07; Start 06/19/17 at 09:00; Stop 06/26/17 at 18:01; Status DC Potassium Chloride (KCl Oral Soln) 20 meq DAILY08 PO Last administered on 07/06 07:29; Start 06/19/17 at 08:00 Tamsulosin HCl (Flomax) 0.4 mg HS PO Last administered on 06/25/17 20:09; Start 06/19/17 at 21:00; Stop 06/26/17 at 18:02; Status DC Vitamin D (Vitamin D3) 50,000 unit WEEKLY PO Last administered on 07/03/17 09 :59; Start 06/19/17 at 09:00 Flecainide Acetate (Tambocor) 50 mg Q12HR PO Last administered on 07/06/17 19 :33; Start 06/19/17 at 09:00 Memantine (Namenda) 5 mg DAILY PO Last administered on 06/26/17 08:07; Start 06/20/17 at 09:00; Stop 06/26/17 at 10:40; Status DC Quetiapine Fumarate (SEROquel) 12.5 mg QHS PO Last administered on 06/19/17 20:22; Start 06/19/17 at 21:00; Stop 06/20/17 at 19:25; Status DC Risperidone (RisperDAL) 0.25 mg QHS SL Last administered on 06/23/17 19:29; Start 06/20/17 at 21:00; Stop 06/24/17 at 17:36; Status DC Fluoxetine HCl (PROzac) 10 mg DAILY PO Last administered on 06/23/17 08:06; Start 06/21/17 at 09:00; Stop 06/24/17 at 17:36; Status DC Fluoxetine HCl (PROzac) 20 mg DAILY PO Last administered on 06/27/17 07:50; Start 06/25/17 at 09:00; Stop 06/27/17 at 17:51; Status DC Risperidone (RisperDAL) 0.5 mg QHS SL Last administered on 07/06/17 19:37; Start 06/24/17 at 21:00 Memantine (Namenda) 10 mg DAILY PO Last administered on 06/29/17 08:00; Start 06/27/17 at 09:00; Stop 06/30/17 at 09:00; Status DC Memantine (Namenda) 10 mg BID PO Last administered on 07/06/17 19:33; Start 06/30/17 at 09:00 Metoprolol Tartrate (Lopressor) 12.5 mg BID PO Last administered on 06/29/17 19:32; Start 06/26/17 at 21:00; Stop 06/29/17 at 20:06; Status DC Tamsulosin HCl (Flomax) 0.8 mg HS PO Last administered on 07/06/17 19:34; Start 06/26/17 at 21:00 Fluoxetine HCl (PROzac) 30 mg DAILY PO Last administered on 07/04/17 08:28; Start 06/28/17 at 09:00; Stop 07/04/17 at 17:00; Status DC Carvedilol (Coreg) 3.125 mg BIDWMEALS PO Last administered on 07/06/17 16:30 ; Start 06/30/17 at 08:00 Fluoxetine HCl (PROzac) 40 mg DAILY PO Last administered on 07/06/17 07:36; Start 07/05/17 at 09:00 Active Scripts Active Flecainide Acetate 100 Mg Tablet 50 Mg PO Q12HR 90 Days Metoprolol Tartrate 25 Mg Tablet 1 Tab PO BID 90 Days LAST DOSE GIVEN: DATE: TIME: NEXT DOSE DUE: DATE: TIME: Reported Risperdal (Risperidone) 0.5 Mg Tablet 0.5 Mg SL QHS Risperidone 0.5 Mg Tablet 0.5 Mg PO QHS Coreg (Carvedilol) 3.125 Mg Tablet 3.125 Mg PO BIDWMEALS Olanzapine 5 Mg Tablet 1.25 Mg PO PRN PRN Namenda (Memantine Hcl) 10 Mg Tablet 10 Mg PO BID Milk Of Magnesia (Magnesium Hydroxide) 2,400 Mg/10 Ml Oral.susp 2,400 Mg PO PRN Maalox Maximum Strength Susp (Mag Hydrox/Al Hydrox/Simeth) 355 Ml Oral.susp 15 Ml PO PRN Alum-Mag Hydroxide-Simeth Liq (Mag Hydrox/Al Hydrox/Simeth) 360 Ml Oral.susp 15 Ml PO PRN Prozac (Fluoxetine Hcl) 40 Mg Capsule 30 Mg PO DAILY Flomax (Tamsulosin Hcl) 0.4 Mg Cap.er.24h 1 Cap PO HS Zaditor (Ketotifen Fumarate) 5 Ml Drops 1 Drop EACHEYE BID Vitamin D3 (Cholecalciferol (Vitamin D3)) 5,000 Unit Tablet 50,000 Unit PO WEEKLY Tylenol (Acetaminophen) 325 Mg Tablet 650 Mg PO PRN Q6HRS PRN Colace (Docusate Sodium) 100 Mg Capsule 1 Cap PO BID Potassium Chloride Oral Liquid (Potassium Chloride) 20 Meq/15 Ml Liquid 20 Meq PEG DAILY LAST DOSE GIVEN: DATE: TIME: NEXT DOSE DUE: DATE: TIME: I have reviewed the current psychotropics carefully including drug interactions. Risk benefit ratio favors no change other than as noted in my dictated progress note. Diagnosis: Problems: (1) Major depressive disorder, recurrent episode (2) Impulse control disorder (3) Mild cognitive disorder (4) Anxiety disorder CHELSEA RINCON MD Jul 06, 2017 20:21
--- NOTE | 2017-07-06 22:41 | NUR ---
Behavior Intervention Response and Plan: BIRP Note: Behavior: Assumed Care of patient, patient located in Bed at shift change. Patient exhibited the following behavior Calm, Able to Focus on Task, Somatic. Brief assessment on rounds of vital signs, medication needs, lab studies, and pain. Treatment plan problems :1-2 Intervention: Patient assessed and the following interventions initiated safety checks 15 Minute Checks Cognitive Assessment , Head to toe Assessment , Medications. Response: After interactions and interventions patient responded in the following manner, Calm , Able to Focus on Task ,Cooperative. Continue to assess behaviors and condition will continue to monitor throughout the shift as needed. Patient educated on ADL's, and hand hygiene. 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 Continue to assess patient for changes in above assessment. Monitor for medication needs, pain, and safety concerns. Hourly rounding performed to ensure safe environment.
[2017-07-07 06:14] VITALS: BP 113/63
[2017-07-07] MEDS: DOCUSATE SODIUM 100 MG CAPSULE PO SCH ×2 (07:58→20:01)
[2017-07-07] MEDS: CARVEDILOL 3.125 MG TABLET PO SCH ×2 (07:58→16:43)
[2017-07-07] MEDS: MEMANTINE 10 MG TABLET. PO SCH ×2 (07:58→20:01)
[2017-07-07] MEDS: POTASSIUM CHLORIDE 20 MEQ/15 ML ORAL LIQUID. PO SCH (07:59)
[2017-07-07] MEDS: FLECAINIDE 50 MG TABLET. PO SCH ×2 (08:01→20:02)
[2017-07-07] MEDS: KETOTIFEN FUMARATE 0.025% OPHT SOLUTION BOTTLE. OU SCH ×2 (08:02→20:01)
--- NOTE | 2017-07-07 09:25 | PN ---
DATE: 07/05/2017 This late entry, 07/05/2017, covers elements not covered in my initial note of 07/05/2017. SUBJECTIVE: I met with the patient the evening of 07/05/2017. The patient has been coming out to meals, compliant with his medications, a little more interactive. REVIEW OF SYSTEMS: Ambulation impaired with walker. No CV, , pulmonary, eye, ENT system symptoms on review. I met with him individually in his room. MENTAL STATUS EXAM: Oriented to himself and situation. Speech has some latency, coherent. Abstraction fair, computation impaired, language function intact, attention span short. Mood and affect showing improvement. LABORATORY DATA: Reviewed. 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 Rest unchanged. PLAN: Continue psychotropics mentioned in my initial note, Risperdal, Prozac, which was increased along with Namenda and Zyprexa p.r.n. CHELSEA RINCON MD DR: SHAZIA/shanta JOB#: [id number] / [id number]
[2017-07-07 16:04] VITALS: BP 131/78
--- NOTE | 2017-07-07 16:12 | NUR ---
pt up for meals. compliant with meds and cares. withdrawn to room. awake in bed.
--- NOTE | 2017-07-07 20:00 | PDOC ---
Exam Note: Óscar Note: Please also refer to the separate dictated note~for this date of service dictated separately.~Patient seen individually. Discussed the patient with Nursing staff reviewed the chart.~Reviewed interim history and current functioning. Reviewed vital signs,~Labs/ Radiology~and current medications noted below. Continue current treatment with the changes noted in the dictated addendum note Assessment: Vital Signs: Vital Signs Date Time Temp Pulse Resp B/P (MAP) Pulse Ox O2 Delivery O2 Flow Rate FiO2 07/07/17 16:43 59 131/78 07/07/17 16:04 98.0 17 98 07/07/17 06:14 Room Air I&O Intake and Output 07/07/17 07:00 Intake Total 600 ml Balance 600 ml Intake Oral 600 ml Current Medications: Meds: Current Medications Acetaminophen (Tylenol) 650 mg PRN Q6HRS PRN PO PAIN / TEMP; Start 06/19/17 at 04:00; Stop 06/19/17 at 19:17; Status DC Al Hydroxide/Mg Hydroxide (Mylanta Plus Xs) 15 ml PRN AFTMEALHC PRN PO DYSPEPSIA; Start 06/19/17 at 04:00 Magnesium Hydroxide (Milk Of Magnesia) 2,400 mg PRN QHS PRN PO CONSTIPATION; Start 06/19/17 at 04:00 Olanzapine (ZyPREXA ZYDIS) 1.25 mg PRN Q2HR PRN PO PSYCHOSIS; Start 06/19/17 at 04:00 Acetaminophen (Tylenol) 650 mg PRN Q6HRS PRN PO PAIN Last administered on 06/22 04:58; Start 06/19/17 at 05:30 Docusate Sodium (Colace) 100 mg BID PO Last administered on 07/07/17 07:58; Start 06/19/17 at 09:00 Ketotifen Fumarate (Zaditor) 1 drop BID OU Last administered on 07/07/17 08:02 ; Start 06/19/17 at 09:00 Metoprolol Tartrate (Lopressor) 25 mg BID PO Last administered on 06/26/17 08 :07; Start 06/19/17 at 09:00; Stop 06/26/17 at 18:01; Status DC Potassium Chloride (KCl Oral Soln) 20 meq DAILY08 PO Last administered on 07:59; Start 06/19/17 at 08:00 Tamsulosin HCl (Flomax) 0.4 mg HS PO Last administered on 06/25/17 20:09; Start 06/19/17 at 21:00; Stop 06/26/17 at 18:02; Status DC Vitamin D (Vitamin D3) 50,000 unit WEEKLY PO Last administered on 07/03/17 09 :59; Start 06/19/17 at 09:00 Flecainide Acetate (Tambocor) 50 mg Q12HR PO Last administered on 07/07/17 08: 01; Start 06/19/17 at 09:00 Memantine (Namenda) 5 mg DAILY PO Last administered on 06/26/17 08:07; Start 06/20/17 at 09:00; Stop 06/26/17 at 10:40; Status DC Quetiapine Fumarate (SEROquel) 12.5 mg QHS PO Last administered on 06/19/17 20:22; Start 06/19/17 at 21:00; Stop 06/20/17 at 19:25; Status DC Risperidone (RisperDAL) 0.25 mg QHS SL Last administered on 06/23/17 19:29; Start 06/20/17 at 21:00; Stop 06/24/17 at 17:36; Status DC Fluoxetine HCl (PROzac) 10 mg DAILY PO Last administered on 06/23/17 08:06; Start 06/21/17 at 09:00; Stop 06/24/17 at 17:36; Status DC Fluoxetine HCl (PROzac) 20 mg DAILY PO Last administered on 06/27/17 07:50; Start 06/25/17 at 09:00; Stop 06/27/17 at 17:51; Status DC Risperidone (RisperDAL) 0.5 mg QHS SL Last administered on 07/06/17 19:37; Start 06/24/17 at 21:00 Memantine (Namenda) 10 mg DAILY PO Last administered on 06/29/17 08:00; Start 06/27/17 at 09:00; Stop 06/30/17 at 09:00; Status DC Memantine (Namenda) 10 mg BID PO Last administered on 07/07/17 07:58; Start at 09:00 Metoprolol Tartrate (Lopressor) 12.5 mg BID PO Last administered on 06/29/17 19:32; Start 06/26/17 at 21:00; Stop 06/29/17 at 20:06; Status DC Tamsulosin HCl (Flomax) 0.8 mg HS PO Last administered on 07/06/17 19:34; Start 06/26/17 at 21:00 Fluoxetine HCl (PROzac) 30 mg DAILY PO Last administered on 07/04/17 08:28; Start 06/28/17 at 09:00; Stop 07/04/17 at 17:00; Status DC Carvedilol (Coreg) 3.125 mg BIDWMEALS PO Last administered on 07/07/17 16:43; Start 06/30/17 at 08:00 Fluoxetine HCl (PROzac) 40 mg DAILY PO Last administered on 07/07/17 08:01; Start 07/05/17 at 09:00 Active Scripts Active Flecainide Acetate 100 Mg Tablet 50 Mg PO Q12HR 90 Days Metoprolol Tartrate 25 Mg Tablet 1 Tab PO BID 90 Days LAST DOSE GIVEN: DATE: TIME: NEXT DOSE DUE: DATE: TIME: Reported Risperdal (Risperidone) 0.5 Mg Tablet 0.5 Mg SL QHS Risperidone 0.5 Mg Tablet 0.5 Mg PO QHS Coreg (Carvedilol) 3.125 Mg Tablet 3.125 Mg PO BIDWMEALS Olanzapine 5 Mg Tablet 1.25 Mg PO PRN PRN Namenda (Memantine Hcl) 10 Mg Tablet 10 Mg PO BID Milk Of Magnesia (Magnesium Hydroxide) 2,400 Mg/10 Ml Oral.susp 2,400 Mg PO PRN Maalox Maximum Strength Susp (Mag Hydrox/Al Hydrox/Simeth) 355 Ml Oral.susp 15 Ml PO PRN Alum-Mag Hydroxide-Simeth Liq (Mag Hydrox/Al Hydrox/Simeth) 360 Ml Oral.susp 15 Ml PO PRN Prozac (Fluoxetine Hcl) 40 Mg Capsule 30 Mg PO DAILY Flomax (Tamsulosin Hcl) 0.4 Mg Cap.er.24h 1 Cap PO HS Zaditor (Ketotifen Fumarate) 5 Ml Drops 1 Drop EACHEYE BID Vitamin D3 (Cholecalciferol (Vitamin D3)) 5,000 Unit Tablet 50,000 Unit PO WEEKLY Tylenol (Acetaminophen) 325 Mg Tablet 650 Mg PO PRN Q6HRS PRN Colace (Docusate Sodium) 100 Mg Capsule 1 Cap PO BID Potassium Chloride Oral Liquid (Potassium Chloride) 20 Meq/15 Ml Liquid 20 Meq PEG DAILY LAST DOSE GIVEN: DATE: TIME: NEXT DOSE DUE: DATE: TIME: I have reviewed the current psychotropics carefully including drug interactions. Risk benefit ratio favors no change other than as noted in my dictated progress note. Diagnosis: Problems: (1) Anxiety disorder (2) Mild cognitive disorder (3) Impulse control disorder (4) Major depressive disorder, recurrent episode CHELSEA RINCON MD Jul 07, 2017 20:00
[2017-07-07] MEDS: TAMSULOSIN 0.4 MG CAP.ER.24H. PO SCH (20:01)
[2017-07-07] MEDS: risperiDONE ORAL 1 MG/ML 30ml BOTTLE. SL SCH (20:04)
--- NOTE | 2017-07-07 21:08 | NUR ---
Behavior Intervention Response and Plan: BIRP Note: Behavior: Assumed Care of patient, patient located in Patient Room at shift change. Patient exhibited the following behavior Calm, Disorganized, Withdrawn. Brief assessment on rounds of vital signs, medication needs, lab studies, and pain. Treatment plan problems .1&2 Intervention: Patient assessed and the following interventions initiated safety checks 15 Minute Checks Cognitive Assessment , Head to toe Assessment , Medications. Response: After interactions and interventions patient responded in the following manner, Appropriate , Compliant ,Cooperative. Continue to assess behaviors and condition will continue to monitor throughout the shift as needed. Patient educated on ADL's, and hand hygiene. Plan: Continue to monitor Master Treatment Plan for patient's progress toward short term goals of Improved Mood, Decreased Anxiety, half-way goals to return to previous living setting vs placement. Continue to assess patient for changes in above assessment. Monitor for medication needs, pain, and safety concerns. Hourly rounding performed to ensure safe environment.
[2017-07-08 06:02] VITALS: BP 116/69
[2017-07-08 08:03] LABS: BASO % 1 % (0-3); EOS # 0.2 x10^3/uL (0.0-0.7); EOS % 3 % (0-3); HEMOGLOBIN 12.5 g/dL (13.0-17.5); LYMPH # 1.6 x10^3/uL (1.0-4.8); LYMPH % 31 % (24-48); MEAN CORPUSCULAR HEMOGLOBIN 33 pg (25-35); MEAN CORPUSCULAR HGB CONC 34 g/dL (31-37); MEAN CORPUSCULAR VOLUME 97 fL (79-100); MONO # 0.4 x10^3/uL (0.0-1.1); MONO % 8 % (0-9); NEUT % 57 % (31-73); PLATELET COUNT 192 x10^3/uL (140-400); RED BLOOD COUNT 3.83 x10^6/uL (4.30-5.70); RED CELL DISTRIBUTION WIDTH 14.1 % (11.5-14.5); WHITE BLOOD COUNT 5.2 x10^3/uL (4.0-11.0)
[2017-07-08 08:34] LABS: ALBUMIN 3.4 g/dL (3.4-5.0); ALBUMIN/GLOBULIN RATIO 1.2 (1.0-1.7); CALCIUM 9.1 mg/dL (8.5-10.1); CREATININE 0.8 mg/dL (0.7-1.3); GFR 91.4; POTASSIUM 4.1 mmol/L (3.5-5.1); TOTAL BILIRUBIN 0.4 mg/dL (0.2-1.0); TOTAL PROTEIN 6.2 g/dL (6.4-8.2)
[2017-07-08] MEDS: DOCUSATE SODIUM 100 MG CAPSULE PO SCH ×2 (08:44→19:49)
[2017-07-08] MEDS: CARVEDILOL 3.125 MG TABLET PO SCH ×2 (08:44→17:18)
[2017-07-08] MEDS: MEMANTINE 10 MG TABLET. PO SCH ×2 (08:44→19:50)
[2017-07-08] MEDS: POTASSIUM CHLORIDE 20 MEQ/15 ML ORAL LIQUID. PO SCH (08:44)
[2017-07-08] MEDS: FLECAINIDE 50 MG TABLET. PO SCH ×2 (08:46→19:52)
[2017-07-08] MEDS: KETOTIFEN FUMARATE 0.025% OPHT SOLUTION BOTTLE. OU SCH ×2 (08:46→19:52)
--- NOTE | 2017-07-08 11:10 | NUR ---
Behavior Intervention Response and Plan: BIRP Note: Behavior: Assumed Care of patient, patient located in Patient Room at shift change. Patient exhibited the following behavior Calm, Cooperative, Compliant. Brief assessment on rounds of vital signs, medication needs, lab studies, and pain. Treatment plan problems 1-2. Intervention: Patient assessed and the following interventions initiated safety checks 15 Minute Checks Cognitive Assessment , Head to toe Assessment , Medications. Response: After interactions and interventions patient responded in the following manner, Calm , Compliant ,Cooperative. Continue to assess behaviors and condition will continue to monitor throughout the shift as needed. Patient educated on ADL's, and hand hygiene. 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 Continue to assess patient for changes in above assessment. Monitor for medication needs, pain, and safety concerns. Hourly rounding performed to ensure safe environment.
[2017-07-08 15:57] VITALS: BP 133/75
[2017-07-08] MEDS: TAMSULOSIN 0.4 MG CAP.ER.24H. PO SCH (19:49)
[2017-07-08] MEDS: risperiDONE ORAL 1 MG/ML 30ml BOTTLE. SL SCH (19:53)
--- NOTE | 2017-07-08 20:10 | PDOC ---
Exam Note: Óscar Note: Please also refer to the separate dictated note~for this date of service dictated separately.~Patient seen individually. Discussed the patient with Nursing staff reviewed the chart.~Reviewed interim history and current functioning. Reviewed vital signs,~Labs/ Radiology~and current medications noted below. Continue current treatment with the changes noted in the dictated addendum note Assessment: Vital Signs: Vital Signs Date Time Temp Pulse Resp B/P (MAP) Pulse Ox O2 Delivery O2 Flow Rate FiO2 07/08/17 19:52 60 133/75 07/08/17 15:57 97.9 16 98 07/07/17 06:14 Room Air I&O Intake and Output 07/08/17 07:00 Intake Total 480 ml Balance 480 ml Intake Oral 480 ml Labs: Laboratory Tests Test 07/08/17 07:54 White Blood Count 5.2 x10^3/uL (4.0-11.0) Red Blood Count 3.83 x10^6/uL (4.30-5.70) L Hemoglobin 12.5 g/dL (13.0-17.5) L Hematocrit 37.0 % (39.0-53.0) L Mean Corpuscular Volume 97 fL (79-100) Mean Corpuscular Hemoglobin 33 pg (25-35) Mean Corpuscular Hemoglobin Concent 34 g/dL (31-37) Red Cell Distribution Width 14.1 % (11.5-14.5) Platelet Count 192 x10^3/uL (140-400) Neutrophils (%) (Auto) 57 % (31-73) Lymphocytes (%) (Auto) 31 % (24-48) Monocytes (%) (Auto) 8 % (0-9) Eosinophils (%) (Auto) 3 % (0-3) Basophils (%) (Auto) 1 % (0-3) Neutrophils # (Auto) 3.0 x10^3uL (1.8-7.7) Lymphocytes # (Auto) 1.6 x10^3/uL (1.0-4.8) Monocytes # (Auto) 0.4 x10^3/uL (0.0-1.1) Eosinophils # (Auto) 0.2 x10^3/uL (0.0-0.7) Basophils # (Auto) 0.0 x10^3/uL (0.0-0.2) Sodium Level 141 mmol/L (136-145) Potassium Level 4.1 mmol/L (3.5-5.1) Chloride Level 104 mmol/L (98-107) Carbon Dioxide Level 29 mmol/L (21-32) Anion Gap 8 (6-14) Blood Urea Nitrogen 10 mg/dL (8-26) Creatinine 0.8 mg/dL (0.7-1.3) Estimated GFR (Cockcroft-Gault) 91.4 BUN/Creatinine Ratio 13 (6-20) Glucose Level 104 mg/dL (70-99) H Calcium Level 9.1 mg/dL (8.5-10.1) Magnesium Level 2.0 mg/dL (1.8-2.4) Total Bilirubin 0.4 mg/dL (0.2-1.0) Aspartate Amino Transferase (AST) 16 U/L (15-37) Alanine Aminotransferase (ALT) 17 U/L (16-63) Alkaline Phosphatase 63 U/L (46-116) Total Protein 6.2 g/dL (6.4-8.2) L Albumin 3.4 g/dL (3.4-5.0) Albumin/Globulin Ratio 1.2 (1.0-1.7) Current Medications: Meds: Current Medications Acetaminophen (Tylenol) 650 mg PRN Q6HRS PRN PO PAIN / TEMP; Start 06/19/17 at 04:00; Stop 06/19/17 at 19:17; Status DC Al Hydroxide/Mg Hydroxide (Mylanta Plus Xs) 15 ml PRN AFTMEALHC PRN PO DYSPEPSIA; Start 06/19/17 at 04:00 Magnesium Hydroxide (Milk Of Magnesia) 2,400 mg PRN QHS PRN PO CONSTIPATION; Start 06/19/17 at 04:00 Olanzapine (ZyPREXA ZYDIS) 1.25 mg PRN Q2HR PRN PO PSYCHOSIS; Start 06/19/17 at 04:00 Acetaminophen (Tylenol) 650 mg PRN Q6HRS PRN PO PAIN Last administered on 06/22t 04:58; Start 06/19/17 at 05:30 Docusate Sodium (Colace) 100 mg BID PO Last administered on 07/08/17at 19:49; Start 06/19/17 at 09:00 Ketotifen Fumarate (Zaditor) 1 drop BID OU Last administered on 07/08/17 19:52 ; Start 06/19/17 at 09:00 Metoprolol Tartrate (Lopressor) 25 mg BID PO Last administered on 06/26/17 08 :07; Start 06/19/17 at 09:00; Stop 06/26/17 at 18:01; Status DC Potassium Chloride (KCl Oral Soln) 20 meq DAILY08 PO Last administered on 08:44; Start 06/19/17 at 08:00 Tamsulosin HCl (Flomax) 0.4 mg HS PO Last administered on 06/25/17 20:09; Start 06/19/17 at 21:00; Stop 06/26/17 at 18:02; Status DC Vitamin D (Vitamin D3) 50,000 unit WEEKLY PO Last administered on 07/03/17 09 :59; Start 06/19/17 at 09:00 Flecainide Acetate (Tambocor) 50 mg Q12HR PO Last administered on 07/08/17 19: 52; Start 06/19/17 at 09:00 Memantine (Namenda) 5 mg DAILY PO Last administered on 06/26/17 08:07; Start 06/20/17 at 09:00; Stop 06/26/17 at 10:40; Status DC Quetiapine Fumarate (SEROquel) 12.5 mg QHS PO Last administered on 06/19/17 20:22; Start 06/19/17 at 21:00; Stop 06/20/17 at 19:25; Status DC Risperidone (RisperDAL) 0.25 mg QHS SL Last administered on 06/23/17 19:29; Start 06/20/17 at 21:00; Stop 06/24/17 at 17:36; Status DC Fluoxetine HCl (PROzac) 10 mg DAILY PO Last administered on 06/23/17 08:06; Start 06/21/17 at 09:00; Stop 06/24/17 at 17:36; Status DC Fluoxetine HCl (PROzac) 20 mg DAILY PO Last administered on 06/27/17 07:50; Start 06/25/17 at 09:00; Stop 06/27/17 at 17:51; Status DC Risperidone (RisperDAL) 0.5 mg QHS SL Last administered on 07/08/17 19:53; Start 06/24/17 at 21:00 Memantine (Namenda) 10 mg DAILY PO Last administered on 06/29/17 08:00; Start 06/27/17 at 09:00; Stop 06/30/17 at 09:00; Status DC Memantine (Namenda) 10 mg BID PO Last administered on 07/08/17 19:50; Start at 09:00 Metoprolol Tartrate (Lopressor) 12.5 mg BID PO Last administered on 06/29/17 19:32; Start 06/26/17 at 21:00; Stop 06/29/17 at 20:06; Status DC Tamsulosin HCl (Flomax) 0.8 mg HS PO Last administered on 07/08/17 19:49; Start 06/26/17 at 21:00 Fluoxetine HCl (PROzac) 30 mg DAILY PO Last administered on 07/04/17 08:28; Start 06/28/17 at 09:00; Stop 07/04/17 at 17:00; Status DC Carvedilol (Coreg) 3.125 mg BIDWMEALS PO Last administered on 07/08/17 17:18; Start 06/30/17 at 08:00 Fluoxetine HCl (PROzac) 40 mg DAILY PO Last administered on 07/08/17 08:52; Start 07/05/17 at 09:00; Stop 07/08/17 at 14:24; Status DC Fluoxetine HCl (PROzac) 40 mg DAILY PO ; Start 07/09/17 at 09:00 Active Scripts Active Flecainide Acetate 100 Mg Tablet 50 Mg PO Q12HR 90 Days Metoprolol Tartrate 25 Mg Tablet 1 Tab PO BID 90 Days LAST DOSE GIVEN: DATE: TIME: NEXT DOSE DUE: DATE: TIME: Reported Risperdal (Risperidone) 0.5 Mg Tablet 0.5 Mg SL QHS Risperidone 0.5 Mg Tablet 0.5 Mg PO QHS Coreg (Carvedilol) 3.125 Mg Tablet 3.125 Mg PO BIDWMEALS Olanzapine 5 Mg Tablet 1.25 Mg PO PRN PRN Namenda (Memantine Hcl) 10 Mg Tablet 10 Mg PO BID Milk Of Magnesia (Magnesium Hydroxide) 2,400 Mg/10 Ml Oral.susp 2,400 Mg PO PRN Maalox Maximum Strength Susp (Mag Hydrox/Al Hydrox/Simeth) 355 Ml Oral.susp 15 Ml PO PRN Alum-Mag Hydroxide-Simeth Liq (Mag Hydrox/Al Hydrox/Simeth) 360 Ml Oral.susp 15 Ml PO PRN Prozac (Fluoxetine Hcl) 40 Mg Capsule 30 Mg PO DAILY Flomax (Tamsulosin Hcl) 0.4 Mg Cap.er.24h 1 Cap PO HS Zaditor (Ketotifen Fumarate) 5 Ml Drops 1 Drop EACHEYE BID Vitamin D3 (Cholecalciferol (Vitamin D3)) 5,000 Unit Tablet 50,000 Unit PO WEEKLY Tylenol (Acetaminophen) 325 Mg Tablet 650 Mg PO PRN Q6HRS PRN Colace (Docusate Sodium) 100 Mg Capsule 1 Cap PO BID Potassium Chloride Oral Liquid (Potassium Chloride) 20 Meq/15 Ml Liquid 20 Meq PEG DAILY LAST DOSE GIVEN: DATE: TIME: NEXT DOSE DUE: DATE: TIME: I have reviewed the current psychotropics carefully including drug interactions. Risk benefit ratio favors no change other than as noted in my dictated progress note. Diagnosis: Problems: (1) Anxiety disorder (2) Mild cognitive disorder (3) Impulse control disorder (4) Major depressive disorder, recurrent episode CHELSEA RINCON MD Jul 08, 2017 20:10
--- NOTE | 2017-07-08 21:39 | NUR ---
Behavior Intervention Response and Plan: BIRP Note: Behavior: Assumed Care of patient, patient located in Patient Room at shift change. Patient exhibited the following behavior Calm, Interactive, Withdrawn. Brief assessment on rounds of vital signs, medication needs, lab studies, and pain. Treatment plan problems .1&2 Intervention: Patient assessed and the following interventions initiated safety checks 15 Minute Checks Cognitive Assessment , Head to toe Assessment , Medications. Response: After interactions and interventions patient responded in the following manner, Appropriate , Compliant ,Cooperative. Continue to assess behaviors and condition will continue to monitor throughout the shift as needed. Patient educated on ADL's, and hand hygiene. 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 Continue to assess patient for changes in above assessment. Monitor for medication needs, pain, and safety concerns. Hourly rounding performed to ensure safe environment.
[2017-07-09 05:42] VITALS: BP 113/73
--- NOTE | 2017-07-09 08:29 | PN ---
DATE: 07/07/2017 PSYCHIATRIC PROGRESS NOTE This is a late entry 07/07/2017, covers elements not covered in my initial note 07/07/2017. SUBJECTIVE: I met with the patient the evening of 07/07/2017. The patient remains withdrawn to his room, awake, alert, compliant, appetite is better. REVIEW OF SYSTEMS: Ambulation impaired, with walker. No CV, , pulmonary, eye, ENT system symptoms on review. MENTAL STATUS EXAM: Oriented to himself and situation. Speech moderate latency, coherent, often responses monosyllabic. Abstraction fair, computation impaired, language function intact. Mood and affect is improved. No suicidal or homicidal ideation. LABORATORY DATA: Reviewed. IMPRESSION: Major depressive disorder with psychotic features in partial remission. Rest unchanged. PLAN: Continue psychotropics mentioned in my initial note. MAN Huan RINCON MD DR: SAHZIA/shanta JOB#: [id number] / [id number]
--- NOTE | 2017-07-09 09:00 | PN ---
DATE: 07/06/2017 PSYCHIATRIC PROGRESS NOTE This late entry 07/06/2017 covers elements not covered in my initial note of 07/06/2017. I met with the patient in the evening of 07/06/2017 in his room. He has been withdrawn, compliant with medications, had a better day. Appetite is better. REVIEW OF SYSTEMS: Ambulation impaired with walker. No CV, , pulmonary, eye, ENT system symptoms on review. MENTAL STATUS EXAM: Oriented to himself and situation. Speech has some latency, coherent, often responses monosyllabic. Abstraction fair, computation impaired, language function intact. Mood and affect is improved. No suicidal or homicidal ideation. IMPRESSION: Major depressive disorder with psychotic features. Rest unchanged. PLAN: Continue psychotropics mentioned in my initial note. MAN Huan RINCON MD DR: SHAZIA/shanta JOB#: [id number] / [id number]
[2017-07-09] MEDS: POTASSIUM CHLORIDE 20 MEQ/15 ML ORAL LIQUID. PO SCH (09:04)
[2017-07-09] MEDS: MEMANTINE 10 MG TABLET. PO SCH ×2 (09:04→19:44)
[2017-07-09] MEDS: CARVEDILOL 3.125 MG TABLET PO SCH ×2 (09:05→17:24)
[2017-07-09] MEDS: DOCUSATE SODIUM 100 MG CAPSULE PO SCH ×2 (09:05→19:44)
[2017-07-09] MEDS: KETOTIFEN FUMARATE 0.025% OPHT SOLUTION BOTTLE. OU SCH ×2 (09:07→19:43)
[2017-07-09] MEDS: FLUoxetine HCL 20 MG CAPSULE PO SCH (09:07)
[2017-07-09] MEDS: FLECAINIDE 50 MG TABLET. PO SCH ×2 (09:07→19:45)
--- NOTE | 2017-07-09 11:20 | NUR ---
Behavior Intervention Response and Plan: BIRP Note: Behavior: Assumed Care of patient, patient located in Patient Room at shift change. Patient exhibited the following behavior Calm, Withdrawn, Cooperative. Brief assessment on rounds of vital signs, medication needs, lab studies, and pain. Treatment plan problems 1-2. Intervention: Patient assessed and the following interventions initiated safety checks 15 Minute Checks Cognitive Assessment , Head to toe Assessment , Medications. Response: After interactions and interventions patient responded in the following manner, Calm , Withdrawn ,Compliant. Continue to assess behaviors and condition will continue to monitor throughout the shift as needed. Patient educated on ADL's, and hand hygiene. Plan: Continue to monitor Master Treatment Plan for patient's progress toward short term goals of Improved Mood, Medication Compliance, manager long term care goals to return to previous living setting vs placement. Continue to assess patient for changes in above assessment. Monitor for medication needs, pain, and safety concerns. Hourly rounding performed to ensure safe environment.
--- NOTE | 2017-07-09 15:00 | NUR ---
WEEKLY THERAPEUTIC RECREATION NOTE Date of Admission: 06/19/2017 Date of AT Assessment: 06/23/2017 Goal aimed: to increase time management and leisure awareness Initial goal: Pt. will participate in at least one group a week. Weekly progress towards goal: on track Group participation level: zero to minimal Behaviors observed: Pt. is often awake, in his bed. He occasionally comes to coffee groups but usually leaves soon after it starts Plan: No changes to goal
[2017-07-09 16:18] VITALS: BP 138/67
[2017-07-09] MEDS: TAMSULOSIN 0.4 MG CAP.ER.24H. PO SCH (19:44)
[2017-07-09] MEDS: risperiDONE ORAL 1 MG/ML 30ml BOTTLE. SL SCH (19:45)
--- NOTE | 2017-07-09 20:05 | PDOC ---
Exam Note: Óscar Note: Please also refer to the separate dictated note~for this date of service dictated separately.~Patient seen individually. Discussed the patient with Nursing staff reviewed the chart.~Reviewed interim history and current functioning. Reviewed vital signs,~Labs/ Radiology~and current medications noted below. Continue current treatment with the changes noted in the dictated addendum note Assessment: Vital Signs: Vital Signs Date Time Temp Pulse Resp B/P (MAP) Pulse Ox O2 Delivery O2 Flow Rate FiO2 07/09/17 19:45 66 138/67 07/09/17 16:18 97.8 18 98 07/07/17 06:14 Room Air I&O Intake and Output 07/09/17 07:00 Intake Total 360 ml Balance 360 ml Intake Oral 360 ml Current Medications: Meds: Current Medications Acetaminophen (Tylenol) 650 mg PRN Q6HRS PRN PO PAIN / TEMP; Start 06/19/17 at 04:00; Stop 06/19/17 at 19:17; Status DC Al Hydroxide/Mg Hydroxide (Mylanta Plus Xs) 15 ml PRN AFTMEALHC PRN PO DYSPEPSIA; Start 06/19/17 at 04:00 Magnesium Hydroxide (Milk Of Magnesia) 2,400 mg PRN QHS PRN PO CONSTIPATION; Start 06/19/17 at 04:00 Olanzapine (ZyPREXA ZYDIS) 1.25 mg PRN Q2HR PRN PO PSYCHOSIS; Start 06/19/17 at 04:00 Acetaminophen (Tylenol) 650 mg PRN Q6HRS PRN PO PAIN Last administered on 06/22 04:58; Start 06/19/17 at 05:30 Docusate Sodium (Colace) 100 mg BID PO Last administered on 07/09/17 19:44; Start 06/19/17 at 09:00 Ketotifen Fumarate (Zaditor) 1 drop BID OU Last administered on 07/09/17 19:43 ; Start 06/19/17 at 09:00 Metoprolol Tartrate (Lopressor) 25 mg BID PO Last administered on 06/26/17 08 :07; Start 06/19/17 at 09:00; Stop 06/26/17 at 18:01; Status DC Potassium Chloride (KCl Oral Soln) 20 meq DAILY08 PO Last administered on 09:04; Start 06/19/17 at 08:00 Tamsulosin HCl (Flomax) 0.4 mg HS PO Last administered on 06/25/17 20:09; Start 06/19/17 at 21:00; Stop 06/26/17 at 18:02; Status DC Vitamin D (Vitamin D3) 50,000 unit WEEKLY PO Last administered on 07/03/17 09 :59; Start 06/19/17 at 09:00 Flecainide Acetate (Tambocor) 50 mg Q12HR PO Last administered on 07/09/17 19: 45; Start 06/19/17 at 09:00 Memantine (Namenda) 5 mg DAILY PO Last administered on 06/26/17 08:07; Start 06/20/17 at 09:00; Stop 06/26/17 at 10:40; Status DC Quetiapine Fumarate (SEROquel) 12.5 mg QHS PO Last administered on 06/19/17 20:22; Start 06/19/17 at 21:00; Stop 06/20/17 at 19:25; Status DC Risperidone (RisperDAL) 0.25 mg QHS SL Last administered on 06/23/17 19:29; Start 06/20/17 at 21:00; Stop 06/24/17 at 17:36; Status DC Fluoxetine HCl (PROzac) 10 mg DAILY PO Last administered on 06/23/17 08:06; Start 06/21/17 at 09:00; Stop 06/24/17 at 17:36; Status DC Fluoxetine HCl (PROzac) 20 mg DAILY PO Last administered on 06/27/17 07:50; Start 06/25/17 at 09:00; Stop 06/27/17 at 17:51; Status DC Risperidone (RisperDAL) 0.5 mg QHS SL Last administered on 07/09/17 19:45; Start 06/24/17 at 21:00 Memantine (Namenda) 10 mg DAILY PO Last administered on 06/29/17 08:00; Start 06/27/17 at 09:00; Stop 06/30/17 at 09:00; Status DC Memantine (Namenda) 10 mg BID PO Last administered on 07/09/17 19:44; Start at 09:00 Metoprolol Tartrate (Lopressor) 12.5 mg BID PO Last administered on 06/29/17 19:32; Start 06/26/17 at 21:00; Stop 06/29/17 at 20:06; Status DC Tamsulosin HCl (Flomax) 0.8 mg HS PO Last administered on 07/09/17at 19:44; Start 06/26/17 at 21:00 Fluoxetine HCl (PROzac) 30 mg DAILY PO Last administered on 07/04/17 08:28; Start 06/28/17 at 09:00; Stop 07/04/17 at 17:00; Status DC Carvedilol (Coreg) 3.125 mg BIDWMEALS PO Last administered on 07/09/17at 17:24; Start 06/30/17 at 08:00 Fluoxetine HCl (PROzac) 40 mg DAILY PO Last administered on 07/08/17 08:52; Start 07/05/17 at 09:00; Stop 07/08/17 at 14:24; Status DC Fluoxetine HCl (PROzac) 40 mg DAILY PO Last administered on 07/09/17at 09:07; Start 07/09/17 at 09:00 Active Scripts Active Flecainide Acetate 100 Mg Tablet 50 Mg PO Q12HR 90 Days Metoprolol Tartrate 25 Mg Tablet 1 Tab PO BID 90 Days LAST DOSE GIVEN: DATE: TIME: NEXT DOSE DUE: DATE: TIME: Reported Risperdal (Risperidone) 0.5 Mg Tablet 0.5 Mg SL QHS Risperidone 0.5 Mg Tablet 0.5 Mg PO QHS Coreg (Carvedilol) 3.125 Mg Tablet 3.125 Mg PO BIDWMEALS Olanzapine 5 Mg Tablet 1.25 Mg PO PRN PRN Namenda (Memantine Hcl) 10 Mg Tablet 10 Mg PO BID Milk Of Magnesia (Magnesium Hydroxide) 2,400 Mg/10 Ml Oral.susp 2,400 Mg PO PRN Maalox Maximum Strength Susp (Mag Hydrox/Al Hydrox/Simeth) 355 Ml Oral.susp 15 Ml PO PRN Alum-Mag Hydroxide-Simeth Liq (Mag Hydrox/Al Hydrox/Simeth) 360 Ml Oral.susp 15 Ml PO PRN Prozac (Fluoxetine Hcl) 40 Mg Capsule 30 Mg PO DAILY Flomax (Tamsulosin Hcl) 0.4 Mg Cap.er.24h 1 Cap PO HS Zaditor (Ketotifen Fumarate) 5 Ml Drops 1 Drop EACHEYE BID Vitamin D3 (Cholecalciferol (Vitamin D3)) 5,000 Unit Tablet 50,000 Unit PO WEEKLY Tylenol (Acetaminophen) 325 Mg Tablet 650 Mg PO PRN Q6HRS PRN Colace (Docusate Sodium) 100 Mg Capsule 1 Cap PO BID Potassium Chloride Oral Liquid (Potassium Chloride) 20 Meq/15 Ml Liquid 20 Meq PEG DAILY LAST DOSE GIVEN: DATE: TIME: NEXT DOSE DUE: DATE: TIME: I have reviewed the current psychotropics carefully including drug interactions. Risk benefit ratio favors no change other than as noted in my dictated progress note. Diagnosis: Problems: (1) Cardiac syncope (2) Anxiety disorder (3) Mild cognitive disorder (4) Impulse control disorder (5) Major depressive disorder, recurrent episode CHELSEA RINCON MD Jul 09, 2017 20:05
--- NOTE | 2017-07-09 20:17 | NUR ---
Behavior Intervention Response and Plan: BIRP Note: Behavior: Assumed Care of patient, patient located in Patient Room at shift change. Patient exhibited the following behavior Calm, Withdrawn, Able to Focus on Task. Brief assessment on rounds of vital signs, medication needs, lab studies, and pain. Treatment plan problems .1&2 Intervention: Patient assessed and the following interventions initiated safety checks 15 Minute Checks Cognitive Assessment , Head to toe Assessment , Medications. Response: After interactions and interventions patient responded in the following manner, Appropriate , Compliant ,Cooperative. Continue to assess behaviors and condition will continue to monitor throughout the shift as needed. Patient educated on ADL's, and hand hygiene. Plan: Continue to monitor Master Treatment Plan for patient's progress toward short term goals of Improved Mood, Medication Compliance, long term care administrator goals to return to previous living setting vs placement. Continue to assess patient for changes in above assessment. Monitor for medication needs, pain, and safety concerns. Hourly rounding performed to ensure safe environment.
--- NOTE | 2017-07-10 04:52 | PN ---
DATE: 07/08/2017 This late entry 07/08/2017 covers elements not covered in my initial note of 07/08/2017. I met with the patient evening of 07/08/2017 in his room at some length. The patient remains somewhat withdrawn to his room, but otherwise pleasant and cooperative. Appetite is better, sleeping better. REVIEW OF SYSTEMS: Ambulation impaired with walker. No CV, , pulmonary, eye, ENT system symptoms on review. MENTAL STATUS EXAM: Oriented to himself and situation. Speech coherent, often responses monosyllabic. Abstraction fair, computation impaired, language function intact. Mood and affect still somewhat withdrawn, depressed, but showing improvement. LABORATORY DATA: Reviewed. IMPRESSION: Major depressive disorder with psychotic features in partial remission. Rest unchanged. PLAN: Continue psychotropics mentioned in my initial note. Reviewed drug interactions. Risk/benefit ratio favors no further change. MAN Huan RINCON MD DR: SHAZIA/shanta JOB#: [id number] / [id number]
[2017-07-10 06:04] VITALS: BP 134/82
[2017-07-10] MEDS: FLUoxetine HCL 20 MG CAPSULE PO SCH (09:14)
[2017-07-10] MEDS: CHOLECALCIFEROL (VITAMIN D3) 50,000 UNIT CAPSULE PO SCH (09:14)
[2017-07-10] MEDS: POTASSIUM CHLORIDE 20 MEQ/15 ML ORAL LIQUID. PO SCH (09:14)
[2017-07-10] MEDS: CARVEDILOL 3.125 MG TABLET PO SCH ×2 (09:14→16:37)
[2017-07-10] MEDS: MEMANTINE 10 MG TABLET. PO SCH ×2 (09:15→20:51)
[2017-07-10] MEDS: DOCUSATE SODIUM 100 MG CAPSULE PO SCH ×2 (09:15→20:51)
[2017-07-10] MEDS: KETOTIFEN FUMARATE 0.025% OPHT SOLUTION BOTTLE. OU SCH ×2 (09:16→20:54)
[2017-07-10] MEDS: FLECAINIDE 50 MG TABLET. PO SCH ×2 (09:16→20:51)
--- NOTE | 2017-07-10 10:10 | NUR ---
Behavior Intervention Response and Plan: BIRP Note: Behavior: Assumed Care of patient, patient located in Patient Room at shift change. Patient exhibited the following behavior Disorganized, Withdrawn, Anxious. Brief assessment on rounds of vital signs, medication needs, lab studies, and pain. Treatment plan problems 1 & 2. Intervention: Patient assessed and the following interventions initiated safety checks 15 Minute Checks Cognitive Assessment , Head to toe Assessment , Medications. Response: After interactions and interventions patient responded in the following manner, Calm , Appropriate ,Compliant. Continue to assess behaviors and condition will continue to monitor throughout the shift as needed. Patient educated on ADL's, and hand hygiene. Plan: Continue to monitor Master Treatment Plan for patient's progress toward short term goals of Decreased Agitation, Medication Compliance, buttermaker goals to return to previous living setting vs placement. Continue to assess patient for changes in above assessment. Monitor for medication needs, pain, and safety concerns. Hourly rounding performed to ensure safe environment.
[2017-07-10 15:42] VITALS: BP 145/73
--- NOTE | 2017-07-10 20:03 | PDOC ---
Exam Note: Óscar Note: Please also refer to the separate dictated note~for this date of service dictated separately.~Patient seen individually. Discussed the patient with Nursing staff reviewed the chart.~Reviewed interim history and current functioning. Reviewed vital signs,~Labs/ Radiology~and current medications noted below. Continue current treatment with the changes noted in the dictated addendum note Assessment: Vital Signs: Vital Signs Date Time Temp Pulse Resp B/P (MAP) Pulse Ox O2 Delivery O2 Flow Rate FiO2 07/10/17 16:37 60 145/73 07/10/17 15:42 97.0 16 97 07/10/17 06:04 Room Air I&O Intake and Output 07/10/17 07:00 Intake Total 960 ml Balance 960 ml Intake Oral 960 ml Current Medications: Meds: Current Medications Acetaminophen (Tylenol) 650 mg PRN Q6HRS PRN PO PAIN / TEMP; Start 06/19/17 at 04:00; Stop 06/19/17 at 19:17; Status DC Al Hydroxide/Mg Hydroxide (Mylanta Plus Xs) 15 ml PRN AFTMEALHC PRN PO DYSPEPSIA; Start 06/19/17 at 04:00 Magnesium Hydroxide (Milk Of Magnesia) 2,400 mg PRN QHS PRN PO CONSTIPATION; Start 06/19/17 at 04:00 Olanzapine (ZyPREXA ZYDIS) 1.25 mg PRN Q2HR PRN PO PSYCHOSIS; Start 06/19/17 at 04:00 Acetaminophen (Tylenol) 650 mg PRN Q6HRS PRN PO PAIN Last administered on 06/22 04:58; Start 06/19/17 at 05:30 Docusate Sodium (Colace) 100 mg BID PO Last administered on 07/10/17 09:15; Start 06/19/17 at 09:00 Ketotifen Fumarate (Zaditor) 1 drop BID OU Last administered on 07/10/17 09:16 ; Start 06/19/17 at 09:00 Metoprolol Tartrate (Lopressor) 25 mg BID PO Last administered on 06/26/17 08 :07; Start 06/19/17 at 09:00; Stop 06/26/17 at 18:01; Status DC Potassium Chloride (KCl Oral Soln) 20 meq DAILY08 PO Last administered on 09:14; Start 06/19/17 at 08:00; Stop 07/10/17 at 18:51; Status DC Tamsulosin HCl (Flomax) 0.4 mg HS PO Last administered on 06/25/17 20:09; Start 06/19/17 at 21:00; Stop 06/26/17 at 18:02; Status DC Vitamin D (Vitamin D3) 50,000 unit WEEKLY PO Last administered on 07/10/17 09: 14; Start 06/19/17 at 09:00 Flecainide Acetate (Tambocor) 50 mg Q12HR PO Last administered on 07/10/17 09: 16; Start 06/19/17 at 09:00 Memantine (Namenda) 5 mg DAILY PO Last administered on 06/26/17 08:07; Start 06/20/17 at 09:00; Stop 06/26/17 at 10:40; Status DC Quetiapine Fumarate (SEROquel) 12.5 mg QHS PO Last administered on 06/19/17 20:22; Start 06/19/17 at 21:00; Stop 06/20/17 at 19:25; Status DC Risperidone (RisperDAL) 0.25 mg QHS SL Last administered on 06/23/17 19:29; Start 06/20/17 at 21:00; Stop 06/24/17 at 17:36; Status DC Fluoxetine HCl (PROzac) 10 mg DAILY PO Last administered on 06/23/17 08:06; Start 06/21/17 at 09:00; Stop 06/24/17 at 17:36; Status DC Fluoxetine HCl (PROzac) 20 mg DAILY PO Last administered on 06/27/17 07:50; Start 06/25/17 at 09:00; Stop 06/27/17 at 17:51; Status DC Risperidone (RisperDAL) 0.5 mg QHS SL Last administered on 07/09/17 19:45; Start 06/24/17 at 21:00 Memantine (Namenda) 10 mg DAILY PO Last administered on 06/29/17 08:00; Start 06/27/17 at 09:00; Stop 06/30/17 at 09:00; Status DC Memantine (Namenda) 10 mg BID PO Last administered on 07/10/17 09:15; Start at 09:00 Metoprolol Tartrate (Lopressor) 12.5 mg BID PO Last administered on 06/29/17 19:32; Start 06/26/17 at 21:00; Stop 06/29/17 at 20:06; Status DC Tamsulosin HCl (Flomax) 0.8 mg HS PO Last administered on 07/09/17 19:44; Start 06/26/17 at 21:00 Fluoxetine HCl (PROzac) 30 mg DAILY PO Last administered on 07/04/17 08:28; Start 06/28/17 at 09:00; Stop 07/04/17 at 17:00; Status DC Carvedilol (Coreg) 3.125 mg BIDWMEALS PO Last administered on 07/10/17 16:37; Start 06/30/17 at 08:00 Fluoxetine HCl (PROzac) 40 mg DAILY PO Last administered on 07/08/17 08:52; Start 07/05/17 at 09:00; Stop 07/08/17 at 14:24; Status DC Fluoxetine HCl (PROzac) 40 mg DAILY PO Last administered on 07/10/17 09:14; Start 07/09/17 at 09:00 Potassium Chloride (Klor-Con) 20 meq DAILYWBKFT PO ; Start 07/11/17 at 08:00 Active Scripts Active Flecainide Acetate 100 Mg Tablet 50 Mg PO Q12HR 90 Days Metoprolol Tartrate 25 Mg Tablet 1 Tab PO BID 90 Days LAST DOSE GIVEN: DATE: TIME: NEXT DOSE DUE: DATE: TIME: Reported Risperdal (Risperidone) 0.5 Mg Tablet 0.5 Mg SL QHS Risperidone 0.5 Mg Tablet 0.5 Mg PO QHS Coreg (Carvedilol) 3.125 Mg Tablet 3.125 Mg PO BIDWMEALS Olanzapine 5 Mg Tablet 1.25 Mg PO PRN PRN Namenda (Memantine Hcl) 10 Mg Tablet 10 Mg PO BID Milk Of Magnesia (Magnesium Hydroxide) 2,400 Mg/10 Ml Oral.susp 2,400 Mg PO PRN Maalox Maximum Strength Susp (Mag Hydrox/Al Hydrox/Simeth) 355 Ml Oral.susp 15 Ml PO PRN Alum-Mag Hydroxide-Simeth Liq (Mag Hydrox/Al Hydrox/Simeth) 360 Ml Oral.susp 15 Ml PO PRN Prozac (Fluoxetine Hcl) 40 Mg Capsule 30 Mg PO DAILY Flomax (Tamsulosin Hcl) 0.4 Mg Cap.er.24h 1 Cap PO HS Zaditor (Ketotifen Fumarate) 5 Ml Drops 1 Drop EACHEYE BID Vitamin D3 (Cholecalciferol (Vitamin D3)) 5,000 Unit Tablet 50,000 Unit PO WEEKLY Tylenol (Acetaminophen) 325 Mg Tablet 650 Mg PO PRN Q6HRS PRN Colace (Docusate Sodium) 100 Mg Capsule 1 Cap PO BID Potassium Chloride Oral Liquid (Potassium Chloride) 20 Meq/15 Ml Liquid 20 Meq PEG DAILY LAST DOSE GIVEN: DATE: TIME: NEXT DOSE DUE: DATE: TIME: I have reviewed the current psychotropics carefully including drug interactions. Risk benefit ratio favors no change other than as noted in my dictated progress note. Diagnosis: Problems: (1) Syncopal episodes (2) Weakness (3) PSVT (paroxysmal supraventricular tachycardia) (4) Cardiac syncope (5) Anxiety disorder (6) Mild cognitive disorder (7) Impulse control disorder (8) Major depressive disorder, recurrent episode CHELSEA RINCON MD Jul 10, 2017 20:03
[2017-07-10] MEDS: TAMSULOSIN 0.4 MG CAP.ER.24H. PO SCH (20:51)
[2017-07-10] MEDS: risperiDONE ORAL 1 MG/ML 30ml BOTTLE. SL SCH (20:53)
--- NOTE | 2017-07-10 23:09 | NUR ---
Behavior Intervention Response and Plan: BIRP Note: Behavior: Assumed Care of patient, patient located in Patient Room at shift change. Patient exhibited the following behavior Drowsy, Resistive, Withdrawn. Brief assessment on rounds of vital signs, medication needs, lab studies, and pain. Treatment plan problems Alteration in Mood and Fall Risk. Intervention: Patient assessed and the following interventions initiated safety checks 15 Minute Checks Cognitive Assessment , Medications , Oral Hydration. Response: After interactions and interventions patient responded in the following manner, Calm , Withdrawn ,Drowsy. Continue to assess behaviors and condition will continue to monitor throughout the shift as needed. Patient educated on ADL's, and hand hygiene. Plan: Continue to monitor Master Treatment Plan for patient's progress toward short term goals of Improved Mood, Decreased Agitation, fdc goals to return to previous living setting vs placement. Continue to assess patient for changes in above assessment. Monitor for medication needs, pain, and safety concerns. Hourly rounding performed to ensure safe environment.
[2017-07-11 05:43] VITALS: BP 141/76
[2017-07-11] MEDS: KETOTIFEN FUMARATE 0.025% OPHT SOLUTION BOTTLE. OU SCH ×2 (08:52→19:35)
[2017-07-11] MEDS: FLECAINIDE 50 MG TABLET. PO SCH ×2 (08:53→19:34)
[2017-07-11] MEDS: FLUoxetine HCL 20 MG CAPSULE PO SCH (08:53)
[2017-07-11] MEDS: CARVEDILOL 3.125 MG TABLET PO SCH ×2 (08:55→17:43)
[2017-07-11] MEDS: DOCUSATE SODIUM 100 MG CAPSULE PO SCH ×2 (08:55→19:34)
[2017-07-11] MEDS: MEMANTINE 10 MG TABLET. PO SCH ×2 (08:55→19:34)
[2017-07-11] MEDS: POTASSIUM CHLORIDE 20 MEQ TABLET.ER. PO SCH (08:57)
--- NOTE | 2017-07-11 09:10 | NUR ---
Behavior Intervention Response and Plan: BIRP Note: Behavior: Assumed Care of patient, patient located in Patient Room at shift change. Patient exhibited the following behavior Disorganized, Withdrawn, Interactive. Brief assessment on rounds of vital signs, medication needs, lab studies, and pain. Treatment plan problems 1 & 2. Intervention: Patient assessed and the following interventions initiated safety checks 15 Minute Checks Cognitive Assessment , Head to toe Assessment , Medications. Response: After interactions and interventions patient responded in the following manner, Calm , Appropriate ,Compliant. Continue to assess behaviors and condition will continue to monitor throughout the shift as needed. Patient educated on ADL's, and hand hygiene. Plan: Continue to monitor Master Treatment Plan for patient's progress toward short term goals of Decreased Agitation, No harm To self/ others, intermediate frame tender goals to return to previous living setting vs placement. Continue to assess patient for changes in above assessment. Monitor for medication needs, pain, and safety concerns. Hourly rounding performed to ensure safe environment.
[2017-07-11 15:50] VITALS: BP 148/77
--- NOTE | 2017-07-11 16:25 | NUR ---
SW contacted pt's son, Jaya to further discuss dc plans and follow up w/[facility]ians[facility] and in home care services. Jaya met w/a hosiery looper earlier this week and will arrange for a follow up appointment next week after he gathers the additional information required. Family was also in contact w/an in home agency they have used in the past called [facility] who stated they would be available to provide over night services upon dc. SW inquired about the possibility of also obtaining assistance w/pt's medications. Jaya stated that was a possibility. SW set dc for Friday. Jaya stated he thought a nephew would be available to transport pt back home. TOI stated SW would follow up on Friday am w/Jaya and finalize dc plans, including transport person and peanut picker time. Jaya was agreeable.
[2017-07-11] MEDS: TAMSULOSIN 0.4 MG CAP.ER.24H. PO SCH (19:33)
[2017-07-11] MEDS: risperiDONE ORAL 1 MG/ML 30ml BOTTLE. SL SCH (19:34)
--- NOTE | 2017-07-11 20:16 | PDOC ---
Exam Note: Óscar Note: Please also refer to the separate dictated note~for this date of service dictated separately.~Patient seen individually. Discussed the patient with Nursing staff reviewed the chart.~Reviewed interim history and current functioning. Reviewed vital signs,~Labs/ Radiology~and current medications noted below. Continue current treatment with the changes noted in the dictated addendum note Assessment: Vital Signs: Vital Signs Date Time Temp Pulse Resp B/P (MAP) Pulse Ox O2 Delivery O2 Flow Rate FiO2 07/11/17 19:34 77 148/77 07/11/17 15:50 98.0 18 96 07/10/17 06:04 Room Air I&O Intake and Output 07/11/17 07:00 Intake Total 400 ml Balance 400 ml Intake Oral 400 ml Current Medications: Meds: Current Medications Acetaminophen (Tylenol) 650 mg PRN Q6HRS PRN PO PAIN / TEMP; Start 06/19/17 at 04:00; Stop 06/19/17 at 19:17; Status DC Al Hydroxide/Mg Hydroxide (Mylanta Plus Xs) 15 ml PRN AFTMEALHC PRN PO DYSPEPSIA; Start 06/19/17 at 04:00 Magnesium Hydroxide (Milk Of Magnesia) 2,400 mg PRN QHS PRN PO CONSTIPATION; Start 06/19/17 at 04:00 Olanzapine (ZyPREXA ZYDIS) 1.25 mg PRN Q2HR PRN PO PSYCHOSIS; Start 06/19/17 at 04:00 Acetaminophen (Tylenol) 650 mg PRN Q6HRS PRN PO PAIN Last administered on 06/22 04:58; Start 06/19/17 at 05:30 Docusate Sodium (Colace) 100 mg BID PO Last administered on 07/11/17 19:34; Start 06/19/17 at 09:00 Ketotifen Fumarate (Zaditor) 1 drop BID OU Last administered on 07/11/17 19:35 ; Start 06/19/17 at 09:00 Metoprolol Tartrate (Lopressor) 25 mg BID PO Last administered on 06/26/17 08 :07; Start 06/19/17 at 09:00; Stop 06/26/17 at 18:01; Status DC Potassium Chloride (KCl Oral Soln) 20 meq DAILY08 PO Last administered on 09:14; Start 06/19/17 at 08:00; Stop 07/10/17 at 18:51; Status DC Tamsulosin HCl (Flomax) 0.4 mg HS PO Last administered on 06/25/17 20:09; Start 06/19/17 at 21:00; Stop 06/26/17 at 18:02; Status DC Vitamin D (Vitamin D3) 50,000 unit WEEKLY PO Last administered on 07/10/17 09: 14; Start 06/19/17 at 09:00 Flecainide Acetate (Tambocor) 50 mg Q12HR PO Last administered on 07/11/17 19: 34; Start 06/19/17 at 09:00 Memantine (Namenda) 5 mg DAILY PO Last administered on 06/26/17 08:07; Start 06/20/17 at 09:00; Stop 06/26/17 at 10:40; Status DC Quetiapine Fumarate (SEROquel) 12.5 mg QHS PO Last administered on 06/19/17 20:22; Start 06/19/17 at 21:00; Stop 06/20/17 at 19:25; Status DC Risperidone (RisperDAL) 0.25 mg QHS SL Last administered on 06/23/17 19:29; Start 06/20/17 at 21:00; Stop 06/24/17 at 17:36; Status DC Fluoxetine HCl (PROzac) 10 mg DAILY PO Last administered on 06/23/17 08:06; Start 06/21/17 at 09:00; Stop 06/24/17 at 17:36; Status DC Fluoxetine HCl (PROzac) 20 mg DAILY PO Last administered on 06/27/17 07:50; Start 06/25/17 at 09:00; Stop 06/27/17 at 17:51; Status DC Risperidone (RisperDAL) 0.5 mg QHS SL Last administered on 07/11/17 19:34; Start 06/24/17 at 21:00 Memantine (Namenda) 10 mg DAILY PO Last administered on 06/29/17 08:00; Start 06/27/17 at 09:00; Stop 06/30/17 at 09:00; Status DC Memantine (Namenda) 10 mg BID PO Last administered on 07/11/17 19:34; Start at 09:00 Metoprolol Tartrate (Lopressor) 12.5 mg BID PO Last administered on 06/29/17 19:32; Start 06/26/17 at 21:00; Stop 06/29/17 at 20:06; Status DC Tamsulosin HCl (Flomax) 0.8 mg HS PO Last administered on 07/11/17 19:33; Start 06/26/17 at 21:00 Fluoxetine HCl (PROzac) 30 mg DAILY PO Last administered on 07/04/17 08:28; Start 06/28/17 at 09:00; Stop 07/04/17 at 17:00; Status DC Carvedilol (Coreg) 3.125 mg BIDWMEALS PO Last administered on 07/11/17 17:43; Start 06/30/17 at 08:00 Fluoxetine HCl (PROzac) 40 mg DAILY PO Last administered on 07/08/17 08:52; Start 07/05/17 at 09:00; Stop 07/08/17 at 14:24; Status DC Fluoxetine HCl (PROzac) 40 mg DAILY PO Last administered on 07/11/17 08:53; Start 07/09/17 at 09:00 Potassium Chloride (Klor-Con) 20 meq DAILYWBKFT PO Last administered on 08:57; Start 07/11/17 at 08:00 Active Scripts Active Flecainide Acetate 100 Mg Tablet 50 Mg PO Q12HR 90 Days Metoprolol Tartrate 25 Mg Tablet 1 Tab PO BID 90 Days LAST DOSE GIVEN: DATE: TIME: NEXT DOSE DUE: DATE: TIME: Reported Risperdal (Risperidone) 0.5 Mg Tablet 0.5 Mg SL QHS Risperidone 0.5 Mg Tablet 0.5 Mg PO QHS Coreg (Carvedilol) 3.125 Mg Tablet 3.125 Mg PO BIDWMEALS Olanzapine 5 Mg Tablet 1.25 Mg PO PRN PRN Namenda (Memantine Hcl) 10 Mg Tablet 10 Mg PO BID Milk Of Magnesia (Magnesium Hydroxide) 2,400 Mg/10 Ml Oral.susp 2,400 Mg PO PRN Maalox Maximum Strength Susp (Mag Hydrox/Al Hydrox/Simeth) 355 Ml Oral.susp 15 Ml PO PRN Alum-Mag Hydroxide-Simeth Liq (Mag Hydrox/Al Hydrox/Simeth) 360 Ml Oral.susp 15 Ml PO PRN Prozac (Fluoxetine Hcl) 40 Mg Capsule 30 Mg PO DAILY Flomax (Tamsulosin Hcl) 0.4 Mg Cap.er.24h 1 Cap PO HS Zaditor (Ketotifen Fumarate) 5 Ml Drops 1 Drop EACHEYE BID Vitamin D3 (Cholecalciferol (Vitamin D3)) 5,000 Unit Tablet 50,000 Unit PO WEEKLY Tylenol (Acetaminophen) 325 Mg Tablet 650 Mg PO PRN Q6HRS PRN Colace (Docusate Sodium) 100 Mg Capsule 1 Cap PO BID Potassium Chloride Oral Liquid (Potassium Chloride) 20 Meq/15 Ml Liquid 20 Meq PEG DAILY LAST DOSE GIVEN: DATE: TIME: NEXT DOSE DUE: DATE: TIME: I have reviewed the current psychotropics carefully including drug interactions. Risk benefit ratio favors no change other than as noted in my dictated progress note. Diagnosis: Problems: (1) Anxiety disorder (2) Mild cognitive disorder (3) Impulse control disorder (4) Major depressive disorder, recurrent episode CHELSEA RINCON MD Jul 11, 2017 20:16
--- NOTE | 2017-07-12 01:03 | NUR ---
Behavior Intervention Response and Plan: BIRP Note: Behavior: Assumed Care of patient, patient located in Patient Room at shift change. Patient exhibited the following behavior Calm, Withdrawn, Drowsy. Brief assessment on rounds of vital signs, medication needs, lab studies, and pain. Treatment plan problems Alteration in Mood and Fall Risk. Intervention: Patient assessed and the following interventions initiated safety checks 15 Minute Checks Cognitive Assessment , Medications , Oral Hydration. Response: After interactions and interventions patient responded in the following manner, Calm , Drowsy ,Compliant. Continue to assess behaviors and condition will continue to monitor throughout the shift as needed. Patient educated on ADL's, and hand hygiene. 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 Continue to assess patient for changes in above assessment. Monitor for medication needs, pain, and safety concerns. Hourly rounding performed to ensure safe environment.
[2017-07-12 05:44] VITALS: BP 103/62
[2017-07-12] MEDS: FLUoxetine HCL 20 MG CAPSULE PO SCH (07:50)
[2017-07-12] MEDS: MEMANTINE 10 MG TABLET. PO SCH ×2 (07:50→20:24)
[2017-07-12] MEDS: DOCUSATE SODIUM 100 MG CAPSULE PO SCH ×2 (07:51→20:24)
[2017-07-12] MEDS: CARVEDILOL 3.125 MG TABLET PO SCH ×2 (07:51→17:10)
[2017-07-12] MEDS: POTASSIUM CHLORIDE 20 MEQ TABLET.ER. PO SCH (07:51)
--- NOTE | 2017-07-12 07:51 | PN ---
DATE: 07/10/2017 PSYCHIATRIC PROGRESS NOTE This is a late entry 07/10/2017, covers elements not covered in my initial note of 07/10/2017. Met with the patient in the evening of 07/10/2016. The patient slept 7 hours previous evening, somewhat withdrawn, irritable in the morning, poor appetite for lunch, refused dinner, had some breakfast. REVIEW OF SYSTEMS: No knows CV, , pulmonary, eye, ENT system symptoms on review. Gait unsteady with walker. MENTAL STATUS EXAM: Oriented to himself and situation. Speech moderate latency, often responses monosyllabic. Abstraction fair, computation impaired. Mood and affect somewhat depressed, but showing improvement. No suicidal ideation. LABORATORY DATA: Reviewed. IMPRESSION: Major depressive disorder with psychotic features in partial remission. Rest unchanged. PLAN: Continue psychotropics mentioned in my initial note. MAN Huan RINCON MD DR: SHAZIA/shanta JOB#: [id number] / [id number]
[2017-07-12] MEDS: FLECAINIDE 50 MG TABLET. PO SCH ×2 (07:52→20:25)
[2017-07-12] MEDS: KETOTIFEN FUMARATE 0.025% OPHT SOLUTION BOTTLE. OU SCH ×2 (07:52→20:24)
--- NOTE | 2017-07-12 07:53 | PN ---
DATE: 07/09/2017 PSYCHIATRIC PROGRESS NOTE HISTORY OF PRESENT ILLNESS: This is a late entry of 07/09/2017 covers elements not covered in my initial note of 07/09/2017. I met with the patient in the evening of 07/09/2017 and staffed at a treatment team meeting with the entire team earlier in the day on 07/09/2017. The patient slept 6-1/4 hours previous evening, withdrawn, isolative, compliant with medications. Appetite improved. REVIEW OF SYSTEMS: No CV, , pulmonary, eye system symptoms on review. Reliability fair. Gait unsteady with walker. MENTAL STATUS EXAM: Reasonably oriented. Speech coherent, often responses monosyllabic. Abstraction fair, computation impaired, language function intact, attention span short. Mood and affect somewhat withdrawn, depressed, but improved. LABORATORY DATA: Reviewed. IMPRESSION: Major depressive disorder with psychotic features, in partial remission. Rest unchanged. PLAN: Continue current psychotropics mentioned in my initial note, may need to increase Prozac further. MAN Huan RINCON MD DR: SHAZIA/shanta JOB#: [id number] / [id number]
--- NOTE | 2017-07-12 09:32 | NUR ---
Behavior Intervention Response and Plan: BIRP Note: Behavior: Assumed Care of patient, patient located in Dining Room at shift change. Patient exhibited the following behavior Calm, Disorganized, Compliant. Brief assessment on rounds of vital signs, medication needs, lab studies, and pain. Treatment plan problems . Intervention: Patient assessed and the following interventions initiated safety checks 15 Minute Checks Cognitive Assessment , Head to toe Assessment , Medications. Response: After interactions and interventions patient responded in the following manner, Calm , Withdrawn ,Sleeping. Continue to assess behaviors and condition will continue to monitor throughout the shift as needed. Patient educated on ADL's, and hand hygiene. Plan: Continue to monitor Master Treatment Plan for patient's progress toward short term goals of Decreased Anxiety, Improved Mood, group home goals to return to previous living setting vs placement. Continue to assess patient for changes in above assessment. Monitor for medication needs, pain, and safety concerns. Hourly rounding performed to ensure safe environment.
[2017-07-12 15:49] VITALS: BP 129/78
--- NOTE | 2017-07-12 16:59 | NUR ---
pt up for meals with encouragement. Meds taken with encouragement. withdrawn to room. sits quietly in bed during day.
[2017-07-12] MEDS: TAMSULOSIN 0.4 MG CAP.ER.24H. PO SCH (20:25)
[2017-07-12] MEDS: risperiDONE ORAL 1 MG/ML 30ml BOTTLE. SL SCH (20:26)
--- NOTE | 2017-07-12 22:15 | PDOC ---
Exam Note: Óscar Note: Please also refer to the separate dictated note~for this date of service dictated separately.~Patient seen individually. Discussed the patient with Nursing staff reviewed the chart.~Reviewed interim history and current functioning. Reviewed vital signs,~Labs/ Radiology~and current medications noted below. Continue current treatment with the changes noted in the dictated addendum note Assessment: Vital Signs: Vital Signs Date Time Temp Pulse Resp B/P (MAP) Pulse Ox O2 Delivery O2 Flow Rate FiO2 07/12/17 20:25 68 129/78 07/12/17 15:49 98.2 18 98 Room Air I&O Intake and Output 07/12/17 06:59 Intake Total 640 ml Balance 640 ml Intake Oral 640 ml Current Medications: Meds: Current Medications Acetaminophen (Tylenol) 650 mg PRN Q6HRS PRN PO PAIN / TEMP; Start 06/19/17 at 04:00; Stop 06/19/17 at 19:17; Status DC Al Hydroxide/Mg Hydroxide (Mylanta Plus Xs) 15 ml PRN AFTMEALHC PRN PO DYSPEPSIA; Start 06/19/17 at 04:00 Magnesium Hydroxide (Milk Of Magnesia) 2,400 mg PRN QHS PRN PO CONSTIPATION; Start 06/19/17 at 04:00 Olanzapine (ZyPREXA ZYDIS) 1.25 mg PRN Q2HR PRN PO PSYCHOSIS; Start 06/19/17 at 04:00 Acetaminophen (Tylenol) 650 mg PRN Q6HRS PRN PO PAIN Last administered on 06/22 04:58; Start 06/19/17 at 05:30 Docusate Sodium (Colace) 100 mg BID PO Last administered on 07/12/17 20:24; Start 06/19/17 at 09:00 Ketotifen Fumarate (Zaditor) 1 drop BID OU Last administered on 07/12/17 20:24 ; Start 06/19/17 at 09:00 Metoprolol Tartrate (Lopressor) 25 mg BID PO Last administered on 06/26/17 08 :07; Start 06/19/17 at 09:00; Stop 06/26/17 at 18:01; Status DC Potassium Chloride (KCl Oral Soln) 20 meq DAILY08 PO Last administered on 09:14; Start 06/19/17 at 08:00; Stop 07/10/17 at 18:51; Status DC Tamsulosin HCl (Flomax) 0.4 mg HS PO Last administered on 06/25/17 20:09; Start 06/19/17 at 21:00; Stop 06/26/17 at 18:02; Status DC Vitamin D (Vitamin D3) 50,000 unit WEEKLY PO Last administered on 07/10/17 09: 14; Start 06/19/17 at 09:00 Flecainide Acetate (Tambocor) 50 mg Q12HR PO Last administered on 07/12/17 20: 25; Start 06/19/17 at 09:00 Memantine (Namenda) 5 mg DAILY PO Last administered on 06/26/17 08:07; Start 06/20/17 at 09:00; Stop 06/26/17 at 10:40; Status DC Quetiapine Fumarate (SEROquel) 12.5 mg QHS PO Last administered on 06/19/17 20:22; Start 06/19/17 at 21:00; Stop 06/20/17 at 19:25; Status DC Risperidone (RisperDAL) 0.25 mg QHS SL Last administered on 06/23/17 19:29; Start 06/20/17 at 21:00; Stop 06/24/17 at 17:36; Status DC Fluoxetine HCl (PROzac) 10 mg DAILY PO Last administered on 06/23/17 08:06; Start 06/21/17 at 09:00; Stop 06/24/17 at 17:36; Status DC Fluoxetine HCl (PROzac) 20 mg DAILY PO Last administered on 06/27/17 07:50; Start 06/25/17 at 09:00; Stop 06/27/17 at 17:51; Status DC Risperidone (RisperDAL) 0.5 mg QHS SL Last administered on 07/12/17 20:26; Start 06/24/17 at 21:00 Memantine (Namenda) 10 mg DAILY PO Last administered on 06/29/17 08:00; Start 06/27/17 at 09:00; Stop 06/30/17 at 09:00; Status DC Memantine (Namenda) 10 mg BID PO Last administered on 07/12/17 20:24; Start at 09:00 Metoprolol Tartrate (Lopressor) 12.5 mg BID PO Last administered on 06/29/17 19:32; Start 06/26/17 at 21:00; Stop 06/29/17 at 20:06; Status DC Tamsulosin HCl (Flomax) 0.8 mg HS PO Last administered on 07/12/17 20:25; Start 06/26/17 at 21:00 Fluoxetine HCl (PROzac) 30 mg DAILY PO Last administered on 07/04/17 08:28; Start 06/28/17 at 09:00; Stop 07/04/17 at 17:00; Status DC Carvedilol (Coreg) 3.125 mg BIDWMEALS PO Last administered on 07/12/17 17:10; Start 06/30/17 at 08:00 Fluoxetine HCl (PROzac) 40 mg DAILY PO Last administered on 07/08/17 08:52; Start 07/05/17 at 09:00; Stop 07/08/17 at 14:24; Status DC Fluoxetine HCl (PROzac) 40 mg DAILY PO Last administered on 07/12/17 07:50; Start 07/09/17 at 09:00 Potassium Chloride (Klor-Con) 20 meq DAILYWBKFT PO Last administered on at 07:51; Start 07/11/17 at 08:00 Active Scripts Active Flecainide Acetate 100 Mg Tablet 50 Mg PO Q12HR 90 Days Metoprolol Tartrate 25 Mg Tablet 1 Tab PO BID 90 Days LAST DOSE GIVEN: DATE: TIME: NEXT DOSE DUE: DATE: TIME: Reported Risperdal (Risperidone) 0.5 Mg Tablet 0.5 Mg SL QHS Risperidone 0.5 Mg Tablet 0.5 Mg PO QHS Coreg (Carvedilol) 3.125 Mg Tablet 3.125 Mg PO BIDWMEALS Olanzapine 5 Mg Tablet 1.25 Mg PO PRN PRN Namenda (Memantine Hcl) 10 Mg Tablet 10 Mg PO BID Milk Of Magnesia (Magnesium Hydroxide) 2,400 Mg/10 Ml Oral.susp 2,400 Mg PO PRN Maalox Maximum Strength Susp (Mag Hydrox/Al Hydrox/Simeth) 355 Ml Oral.susp 15 Ml PO PRN Alum-Mag Hydroxide-Simeth Liq (Mag Hydrox/Al Hydrox/Simeth) 360 Ml Oral.susp 15 Ml PO PRN Prozac (Fluoxetine Hcl) 40 Mg Capsule 30 Mg PO DAILY Flomax (Tamsulosin Hcl) 0.4 Mg Cap.er.24h 1 Cap PO HS Zaditor (Ketotifen Fumarate) 5 Ml Drops 1 Drop EACHEYE BID Vitamin D3 (Cholecalciferol (Vitamin D3)) 5,000 Unit Tablet 50,000 Unit PO WEEKLY Tylenol (Acetaminophen) 325 Mg Tablet 650 Mg PO PRN Q6HRS PRN Colace (Docusate Sodium) 100 Mg Capsule 1 Cap PO BID Potassium Chloride Oral Liquid (Potassium Chloride) 20 Meq/15 Ml Liquid 20 Meq PEG DAILY LAST DOSE GIVEN: DATE: TIME: NEXT DOSE DUE: DATE: TIME: I have reviewed the current psychotropics carefully including drug interactions. Risk benefit ratio favors no change other than as noted in my dictated progress note. Diagnosis: Problems: (1) Anxiety disorder (2) Mild cognitive disorder (3) Impulse control disorder (4) Major depressive disorder, recurrent episode CHELSEA RINCON MD Jul 12, 2017 22:15
--- NOTE | 2017-07-13 00:52 | NUR ---
Behavior Intervention Response and Plan: BIRP Note: Behavior: Assumed Care of patient, patient located in Patient Room at shift change. Patient exhibited the following behavior Calm, Disorganized, Compliant. Brief assessment on rounds of vital signs, medication needs, lab studies, and pain. Treatment plan problems . Intervention: Patient assessed and the following interventions initiated safety checks 15 Minute Checks Cognitive Assessment , Head to toe Assessment , Medications. Response: After interactions and interventions patient responded in the following manner, Calm , Withdrawn ,Sleeping. Continue to assess behaviors and condition will continue to monitor throughout the shift as needed. Patient educated on ADL's, and hand hygiene. 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 Continue to assess patient for changes in above assessment. Monitor for medication needs, pain, and safety concerns. Hourly rounding performed to ensure safe environment.
[2017-07-13 06:05] VITALS: BP 124/73
[2017-07-13 07:44] LABS: BASO % 0 % (0-3); EOS # 0.1 x10^3/uL (0.0-0.7); EOS % 2 % (0-3); HEMATOCRIT 34.6 % (39.0-53.0); HEMOGLOBIN 11.9 g/dL (13.0-17.5); LYMPH # 1.4 x10^3/uL (1.0-4.8); LYMPH % 28 % (24-48); MEAN CORPUSCULAR HEMOGLOBIN 33 pg (25-35); MEAN CORPUSCULAR HGB CONC 34 g/dL (31-37); MEAN CORPUSCULAR VOLUME 95 fL (79-100); MONO # 0.5 x10^3/uL (0.0-1.1); MONO % 10 % (0-9); NEUT # 2.9 x10^3uL (1.8-7.7); NEUT % 60 % (31-73); PLATELET COUNT 166 x10^3/uL (140-400); RED BLOOD COUNT 3.62 x10^6/uL (4.30-5.70); WHITE BLOOD COUNT 4.9 x10^3/uL (4.0-11.0)
[2017-07-13 08:14] LABS: ALBUMIN 2.9 g/dL (3.4-5.0); CALCIUM 8.8 mg/dL (8.5-10.1); CREATININE 0.8 mg/dL (0.7-1.3); GFR 91.4; POTASSIUM 3.8 mmol/L (3.5-5.1); TOTAL BILIRUBIN 0.3 mg/dL (0.2-1.0); TOTAL PROTEIN 5.8 g/dL (6.4-8.2)
[2017-07-13] MEDS: DOCUSATE SODIUM 100 MG CAPSULE PO SCH ×2 (08:52→20:31)
[2017-07-13] MEDS: POTASSIUM CHLORIDE 20 MEQ TABLET.ER. PO SCH (08:52)
[2017-07-13] MEDS: MEMANTINE 10 MG TABLET. PO SCH ×2 (08:53→20:31)
[2017-07-13] MEDS: KETOTIFEN FUMARATE 0.025% OPHT SOLUTION BOTTLE. OU SCH ×2 (08:53→20:31)
[2017-07-13] MEDS: FLUoxetine HCL 20 MG CAPSULE PO SCH (08:53)
[2017-07-13] MEDS: CARVEDILOL 3.125 MG TABLET PO SCH ×2 (08:53→18:37)
[2017-07-13] MEDS: FLECAINIDE 50 MG TABLET. PO SCH ×2 (08:53→20:30)
--- NOTE | 2017-07-13 10:37 | NUR ---
Behavior Intervention Response and Plan: BIRP Note: Behavior: Assumed Care of patient, patient located in Dining Room at shift change. Patient exhibited the following behavior Calm, Disorganized, Compliant. Brief assessment on rounds of vital signs, medication needs, lab studies, and pain. Treatment plan problems . Intervention: Patient assessed and the following interventions initiated safety checks 15 Minute Checks Cognitive Assessment , Head to toe Assessment , Medications. Response: After interactions and interventions patient responded in the following manner, Calm , Withdrawn ,Sleeping. Continue to assess behaviors and condition will continue to monitor throughout the shift as needed. Patient educated on ADL's, and hand hygiene. Plan: Continue to monitor Master Treatment Plan for patient's progress toward short term goals of Decreased Anxiety, Improved Mood, fdc goals to return to previous living setting vs placement. Continue to assess patient for changes in above assessment. Monitor for medication needs, pain, and safety concerns. Hourly rounding performed to ensure safe environment.
--- NOTE | 2017-07-13 15:40 | NUR ---
pt refused am meal but did come out for lunch. irritable in am as he states people keep taking his stuff. lost shoes but were found on another pt. pt irritable about taking meds. 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 pt frustrated.
[2017-07-13 16:27] VITALS: BP 196/82
--- NOTE | 2017-07-13 20:18 | PDOC ---
Exam Note: Óscar Note: Please also refer to the separate dictated note~for this date of service dictated separately.~Patient seen individually. Discussed the patient with Nursing staff reviewed the chart.~Reviewed interim history and current functioning. Reviewed vital signs,~Labs/ Radiology~and current medications noted below. Continue current treatment with the changes noted in the dictated addendum note Assessment: Vital Signs: Vital Signs Date Time Temp Pulse Resp B/P (MAP) Pulse Ox O2 Delivery O2 Flow Rate FiO2 07/13/17 18:37 62 196/82 07/13/17 16:27 97.1 18 97 Room Air I&O Intake and Output 07/13/17 07:00 Intake Total 420 ml Balance 420 ml Intake Oral 420 ml Labs: Laboratory Tests Test 07/13/17 07:25 White Blood Count 4.9 x10^3/uL (4.0-11.0) Red Blood Count 3.62 x10^6/uL (4.30-5.70) L Hemoglobin 11.9 g/dL (13.0-17.5) L Hematocrit 34.6 % (39.0-53.0) L Mean Corpuscular Volume 95 fL (79-100) Mean Corpuscular Hemoglobin 33 pg (25-35) Mean Corpuscular Hemoglobin Concent 34 g/dL (31-37) Red Cell Distribution Width 14.0 % (11.5-14.5) Platelet Count 166 x10^3/uL (140-400) Neutrophils (%) (Auto) 60 % (31-73) Lymphocytes (%) (Auto) 28 % (24-48) Monocytes (%) (Auto) 10 % (0-9) H Eosinophils (%) (Auto) 2 % (0-3) Basophils (%) (Auto) 0 % (0-3) Neutrophils # (Auto) 2.9 x10^3uL (1.8-7.7) Lymphocytes # (Auto) 1.4 x10^3/uL (1.0-4.8) Monocytes # (Auto) 0.5 x10^3/uL (0.0-1.1) Eosinophils # (Auto) 0.1 x10^3/uL (0.0-0.7) Basophils # (Auto) 0.0 x10^3/uL (0.0-0.2) Sodium Level 141 mmol/L (136-145) Potassium Level 3.8 mmol/L (3.5-5.1) Chloride Level 106 mmol/L (98-107) Carbon Dioxide Level 29 mmol/L (21-32) Anion Gap 6 (6-14) Blood Urea Nitrogen 9 mg/dL (8-26) Creatinine 0.8 mg/dL (0.7-1.3) Estimated GFR (Cockcroft-Gault) 91.4 BUN/Creatinine Ratio 11 (6-20) Glucose Level 87 mg/dL (70-99) Calcium Level 8.8 mg/dL (8.5-10.1) Total Bilirubin 0.3 mg/dL (0.2-1.0) Aspartate Amino Transferase (AST) 14 U/L (15-37) L Alanine Aminotransferase (ALT) 12 U/L (16-63) L Alkaline Phosphatase 58 U/L (46-116) Total Protein 5.8 g/dL (6.4-8.2) L Albumin 2.9 g/dL (3.4-5.0) L Albumin/Globulin Ratio 1.0 (1.0-1.7) Current Medications: Meds: Current Medications Acetaminophen (Tylenol) 650 mg PRN Q6HRS PRN PO PAIN / TEMP; Start 06/19/17 at 04:00; Stop 06/19/17 at 19:17; Status DC Al Hydroxide/Mg Hydroxide (Mylanta Plus Xs) 15 ml PRN AFTMEALHC PRN PO DYSPEPSIA; Start 06/19/17 at 04:00 Magnesium Hydroxide (Milk Of Magnesia) 2,400 mg PRN QHS PRN PO CONSTIPATION; Start 06/19/17 at 04:00 Olanzapine (ZyPREXA ZYDIS) 1.25 mg PRN Q2HR PRN PO PSYCHOSIS; Start 06/19/17 at 04:00 Acetaminophen (Tylenol) 650 mg PRN Q6HRS PRN PO PAIN Last administered on 06/22t 04:58; Start 06/19/17 at 05:30 Docusate Sodium (Colace) 100 mg BID PO Last administered on 07/13/17 08:52; Start 06/19/17 at 09:00 Ketotifen Fumarate (Zaditor) 1 drop BID OU Last administered on 07/13/17 08:53 ; Start 06/19/17 at 09:00 Metoprolol Tartrate (Lopressor) 25 mg BID PO Last administered on 06/26/17 08 :07; Start 06/19/17 at 09:00; Stop 06/26/17 at 18:01; Status DC Potassium Chloride (KCl Oral Soln) 20 meq DAILY08 PO Last administered on 09:14; Start 06/19/17 at 08:00; Stop 07/10/17 at 18:51; Status DC Tamsulosin HCl (Flomax) 0.4 mg HS PO Last administered on 06/25/17 20:09; Start 06/19/17 at 21:00; Stop 06/26/17 at 18:02; Status DC Vitamin D (Vitamin D3) 50,000 unit WEEKLY PO Last administered on 07/10/17 09: 14; Start 06/19/17 at 09:00 Flecainide Acetate (Tambocor) 50 mg Q12HR PO Last administered on 07/13/17 08: 53; Start 06/19/17 at 09:00 Memantine (Namenda) 5 mg DAILY PO Last administered on 06/26/17 08:07; Start 06/20/17 at 09:00; Stop 06/26/17 at 10:40; Status DC Quetiapine Fumarate (SEROquel) 12.5 mg QHS PO Last administered on 06/19/17 20:22; Start 06/19/17 at 21:00; Stop 06/20/17 at 19:25; Status DC Risperidone (RisperDAL) 0.25 mg QHS SL Last administered on 06/23/17 19:29; Start 06/20/17 at 21:00; Stop 06/24/17 at 17:36; Status DC Fluoxetine HCl (PROzac) 10 mg DAILY PO Last administered on 06/23/17 08:06; Start 06/21/17 at 09:00; Stop 06/24/17 at 17:36; Status DC Fluoxetine HCl (PROzac) 20 mg DAILY PO Last administered on 06/27/17 07:50; Start 06/25/17 at 09:00; Stop 06/27/17 at 17:51; Status DC Risperidone (RisperDAL) 0.5 mg QHS SL Last administered on 07/12/17 20:26; Start 06/24/17 at 21:00 Memantine (Namenda) 10 mg DAILY PO Last administered on 06/29/17 08:00; Start 06/27/17 at 09:00; Stop 06/30/17 at 09:00; Status DC Memantine (Namenda) 10 mg BID PO Last administered on 07/13/17 08:53; Start at 09:00 Metoprolol Tartrate (Lopressor) 12.5 mg BID PO Last administered on 06/29/17 19:32; Start 06/26/17 at 21:00; Stop 06/29/17 at 20:06; Status DC Tamsulosin HCl (Flomax) 0.8 mg HS PO Last administered on 07/12/17 20:25; Start 06/26/17 at 21:00 Fluoxetine HCl (PROzac) 30 mg DAILY PO Last administered on 07/04/17 08:28; Start 06/28/17 at 09:00; Stop 07/04/17 at 17:00; Status DC Carvedilol (Coreg) 3.125 mg BIDWMEALS PO Last administered on 07/13/17 18:37; Start 06/30/17 at 08:00 Fluoxetine HCl (PROzac) 40 mg DAILY PO Last administered on 07/08/17 08:52; Start 07/05/17 at 09:00; Stop 07/08/17 at 14:24; Status DC Fluoxetine HCl (PROzac) 40 mg DAILY PO Last administered on 07/13/17 08:53; Start 07/09/17 at 09:00 Potassium Chloride (Klor-Con) 20 meq DAILYWBKFT PO Last administered on 08:52; Start 07/11/17 at 08:00 Active Scripts Active Flecainide Acetate 100 Mg Tablet 50 Mg PO Q12HR 90 Days Metoprolol Tartrate 25 Mg Tablet 1 Tab PO BID 90 Days LAST DOSE GIVEN: DATE: TIME: NEXT DOSE DUE: DATE: TIME: Reported Risperdal (Risperidone) 0.5 Mg Tablet 0.5 Mg SL QHS Risperidone 0.5 Mg Tablet 0.5 Mg PO QHS Coreg (Carvedilol) 3.125 Mg Tablet 3.125 Mg PO BIDWMEALS Olanzapine 5 Mg Tablet 1.25 Mg PO PRN PRN Namenda (Memantine Hcl) 10 Mg Tablet 10 Mg PO BID Milk Of Magnesia (Magnesium Hydroxide) 2,400 Mg/10 Ml Oral.susp 2,400 Mg PO PRN Maalox Maximum Strength Susp (Mag Hydrox/Al Hydrox/Simeth) 355 Ml Oral.susp 15 Ml PO PRN Alum-Mag Hydroxide-Simeth Liq (Mag Hydrox/Al Hydrox/Simeth) 360 Ml Oral.susp 15 Ml PO PRN Prozac (Fluoxetine Hcl) 40 Mg Capsule 30 Mg PO DAILY Flomax (Tamsulosin Hcl) 0.4 Mg Cap.er.24h 1 Cap PO HS Zaditor (Ketotifen Fumarate) 5 Ml Drops 1 Drop EACHEYE BID Vitamin D3 (Cholecalciferol (Vitamin D3)) 5,000 Unit Tablet 50,000 Unit PO WEEKLY Tylenol (Acetaminophen) 325 Mg Tablet 650 Mg PO PRN Q6HRS PRN Colace (Docusate Sodium) 100 Mg Capsule 1 Cap PO BID Potassium Chloride Oral Liquid (Potassium Chloride) 20 Meq/15 Ml Liquid 20 Meq PEG DAILY LAST DOSE GIVEN: DATE: TIME: NEXT DOSE DUE: DATE: TIME: I have reviewed the current psychotropics carefully including drug interactions. Risk benefit ratio favors no change other than as noted in my dictated progress note. Diagnosis: Problems: (1) Anxiety disorder (2) Mild cognitive disorder (3) Impulse control disorder (4) Major depressive disorder, recurrent episode CHELSEA RINCON MD Jul 13, 2017 20:17
[2017-07-13] MEDS: risperiDONE ORAL 1 MG/ML 30ml BOTTLE. SL SCH (20:31)
[2017-07-13] MEDS: TAMSULOSIN 0.4 MG CAP.ER.24H. PO SCH (20:31)
--- NOTE | 2017-07-13 22:59 | NUR ---
Behavior Intervention Response and Plan: BIRP Note: Behavior: Assumed Care of patient, patient located in Patient Room at shift change. Patient exhibited the following behavior Calm, Sleeping, Appropriate. Brief assessment on rounds of vital signs, medication needs, lab studies, and pain. Treatment plan problems .1&2 Intervention: Patient assessed and the following interventions initiated safety checks 15 Minute Checks Cognitive Assessment , Head to toe Assessment , Medications. Response: After interactions and interventions patient responded in the following manner, Compliant , Cooperative ,Withdrawn. Continue to assess behaviors and condition will continue to monitor throughout the shift as needed. Patient educated on ADL's, and hand hygiene. Plan: Continue to monitor Master Treatment Plan for patient's progress toward short term goals of Medication Compliance, Improved Mood, halfway goals to return to previous living setting vs placement. Continue to assess patient for changes in above assessment. Monitor for medication needs, pain, and safety concerns. Hourly rounding performed to ensure safe environment.
--- NOTE | 2017-07-14 03:02 | PN ---
DATE: 07/11/2017 PSYCHIATRIC PROGRESS NOTE SUBJECTIVE: This late entry date of service 07/11/2017 covers elements not covered in my initial note of 07/11/2017. I met with the patient evening of 07/11/2017. The patient slept 8 hours previous evening, I met with him in his room. Previous night he was resistive with medications, but cooperative on 07/11/2017, making statements that he would not "care" if he . REVIEW OF SYSTEMS: Ambulation impaired with walker. No CV, , pulmonary, eye, ENT system symptoms on review. MENTAL STATUS EXAM: Oriented to himself and situation. Speech has some latency, often responses monosyllabic, coherent, abstraction fair, computation impaired, language function intact, attention span fair. Mood and affect showing some improvement. IMPRESSION: Major depressive disorder with psychotic features in partial remission. PLAN: Continue current psychotropics. MAN Huan RINCON MD DR: SHAZIA/shanta JOB#: [id number] / [id number]
[2017-07-14 05:52] VITALS: BP 118/77
[2017-07-14] MEDS: FLUoxetine HCL 20 MG CAPSULE PO SCH (08:03)
[2017-07-14] MEDS: POTASSIUM CHLORIDE 20 MEQ TABLET.ER. PO SCH (08:03)
[2017-07-14] MEDS: DOCUSATE SODIUM 100 MG CAPSULE PO SCH ×2 (08:03→19:59)
[2017-07-14] MEDS: CARVEDILOL 3.125 MG TABLET PO SCH ×2 (08:04→16:52)
[2017-07-14] MEDS: MEMANTINE 10 MG TABLET. PO SCH ×2 (08:04→19:58)
[2017-07-14] MEDS: FLECAINIDE 50 MG TABLET. PO SCH ×2 (08:05→19:59)
[2017-07-14] MEDS: KETOTIFEN FUMARATE 0.025% OPHT SOLUTION BOTTLE. OU SCH ×2 (08:05→20:03)
--- NOTE | 2017-07-14 08:30 | NUR ---
Behavior Intervention Response and Plan: BIRP Note: Behavior: Assumed Care of patient, patient located in Patient Room at shift change. Patient exhibited the following behavior Withdrawn, Disorganized, Resistive. Brief assessment on rounds of vital signs, medication needs, lab studies, and pain. Treatment plan problems 1 & 2. Intervention: Patient assessed and the following interventions initiated safety checks 15 Minute Checks Cognitive Assessment , Head to toe Assessment , Medications. Response: After interactions and interventions patient responded in the following manner, Calm , Cooperative ,Appropriate. Continue to assess behaviors and condition will continue to monitor throughout the shift as needed. Patient educated on ADL's, and hand hygiene. Plan: Continue to monitor Master Treatment Plan for patient's progress toward short term goals of Decreased Agitation, Decreased Aggression, correction goals to return to previous living setting vs placement. Continue to assess patient for changes in above assessment. Monitor for medication needs, pain, and safety concerns. Hourly rounding performed to ensure safe environment.
--- NOTE | 2017-07-14 11:04 | PN ---
DATE: 07/12/2017 PSYCHIATRIC PROGRESS NOTE This late entry 07/12/2017 covers elements not covered in my initial note 07/12/2017. SUBJECTIVE: I met with him in his room. He slept 8 hours previous evening. Labs to be checked morning of 07/13/2017, otherwise cooperative. No suicidal ideation, withdrawn, isolative. REVIEW OF SYSTEMS: Ambulation impaired, with walker. No CV, , pulmonary, eye system symptoms on review. MENTAL STATUS EXAM: Oriented to himself and situation. Speech, moderate latency. Abstraction fair, computation . Mood and affect is improved. No suicidal ideation. LABORATORIES: Reviewed. IMPRESSION: Unchanged from initial note. PLAN: Continue current psychotropics. MAN Huan RINCON MD DR: SHAZIA/shanta JOB#: [id number] / [id number]
[2017-07-14 15:34] VITALS: BP 158/99
[2017-07-14] MEDS: TAMSULOSIN 0.4 MG CAP.ER.24H. PO SCH (19:59)
[2017-07-14] MEDS: risperiDONE ORAL 1 MG/ML 30ml BOTTLE. SL SCH (20:00)
--- NOTE | 2017-07-14 20:00 | NUR ---
Behavior Intervention Response and Plan: BIRP Note: Behavior: Assumed Care of patient, patient located in Patient Room at shift change. Patient exhibited the following behavior Calm, Cooperative, Appropriate. Brief assessment on rounds of vital signs, medication needs, lab studies, and pain. Treatment plan problems . Intervention: Patient assessed and the following interventions initiated safety checks 15 Minute Checks Cognitive Assessment , Head to toe Assessment , Medications. Response: After interactions and interventions patient responded in the following manner, Drowsy , Calm ,Appropriate. Continue to assess behaviors and condition will continue to monitor throughout the shift as needed. Patient educated on ADL's, and hand hygiene. 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 Continue to assess patient for changes in above assessment. Monitor for medication needs, pain, and safety concerns. Hourly rounding performed to ensure safe environment.
--- NOTE | 2017-07-14 20:07 | PDOC ---
Exam Note: Óscar Note: Please also refer to the separate dictated note~for this date of service dictated separately.~Patient seen individually. Discussed the patient with Nursing staff reviewed the chart.~Reviewed interim history and current functioning. Reviewed vital signs,~Labs/ Radiology~and current medications noted below. Continue current treatment with the changes noted in the dictated addendum note Assessment: Vital Signs: Vital Signs Date Time Temp Pulse Resp B/P (MAP) Pulse Ox O2 Delivery O2 Flow Rate FiO2 07/14/17 19:59 66 158/99 07/14/17 15:34 98.2 18 99 07/14/17 05:52 Room Air I&O Intake and Output 07/14/17 07:00 Intake Total 660 ml Balance 660 ml Intake Oral 660 ml Current Medications: Meds: Current Medications Acetaminophen (Tylenol) 650 mg PRN Q6HRS PRN PO PAIN / TEMP; Start 06/19/17 at 04:00; Stop 06/19/17 at 19:17; Status DC Al Hydroxide/Mg Hydroxide (Mylanta Plus Xs) 15 ml PRN AFTMEALHC PRN PO DYSPEPSIA; Start 06/19/17 at 04:00 Magnesium Hydroxide (Milk Of Magnesia) 2,400 mg PRN QHS PRN PO CONSTIPATION; Start 06/19/17 at 04:00 Olanzapine (ZyPREXA ZYDIS) 1.25 mg PRN Q2HR PRN PO PSYCHOSIS; Start 06/19/17 at 04:00 Acetaminophen (Tylenol) 650 mg PRN Q6HRS PRN PO PAIN Last administered on 06/22 04:58; Start 06/19/17 at 05:30 Docusate Sodium (Colace) 100 mg BID PO Last administered on 07/14/17 19:59; Start 06/19/17 at 09:00 Ketotifen Fumarate (Zaditor) 1 drop BID OU Last administered on 07/14/17 20:03 ; Start 06/19/17 at 09:00 Metoprolol Tartrate (Lopressor) 25 mg BID PO Last administered on 06/26/17 08 :07; Start 06/19/17 at 09:00; Stop 06/26/17 at 18:01; Status DC Potassium Chloride (KCl Oral Soln) 20 meq DAILY08 PO Last administered on 09:14; Start 06/19/17 at 08:00; Stop 07/10/17 at 18:51; Status DC Tamsulosin HCl (Flomax) 0.4 mg HS PO Last administered on 06/25/17 20:09; Start 06/19/17 at 21:00; Stop 06/26/17 at 18:02; Status DC Vitamin D (Vitamin D3) 50,000 unit WEEKLY PO Last administered on 07/10/17 09: 14; Start 06/19/17 at 09:00 Flecainide Acetate (Tambocor) 50 mg Q12HR PO Last administered on 07/14/17 19: 59; Start 06/19/17 at 09:00 Memantine (Namenda) 5 mg DAILY PO Last administered on 06/26/17 08:07; Start 06/20/17 at 09:00; Stop 06/26/17 at 10:40; Status DC Quetiapine Fumarate (SEROquel) 12.5 mg QHS PO Last administered on 06/19/17 20:22; Start 06/19/17 at 21:00; Stop 06/20/17 at 19:25; Status DC Risperidone (RisperDAL) 0.25 mg QHS SL Last administered on 06/23/17 19:29; Start 06/20/17 at 21:00; Stop 06/24/17 at 17:36; Status DC Fluoxetine HCl (PROzac) 10 mg DAILY PO Last administered on 06/23/17 08:06; Start 06/21/17 at 09:00; Stop 06/24/17 at 17:36; Status DC Fluoxetine HCl (PROzac) 20 mg DAILY PO Last administered on 06/27/17 07:50; Start 06/25/17 at 09:00; Stop 06/27/17 at 17:51; Status DC Risperidone (RisperDAL) 0.5 mg QHS SL Last administered on 07/14/17 20:00; Start 06/24/17 at 21:00 Memantine (Namenda) 10 mg DAILY PO Last administered on 06/29/17 08:00; Start 06/27/17 at 09:00; Stop 06/30/17 at 09:00; Status DC Memantine (Namenda) 10 mg BID PO Last administered on 07/14/17 19:58; Start at 09:00 Metoprolol Tartrate (Lopressor) 12.5 mg BID PO Last administered on 06/29/17 19:32; Start 06/26/17 at 21:00; Stop 06/29/17 at 20:06; Status DC Tamsulosin HCl (Flomax) 0.8 mg HS PO Last administered on 07/14/17 19:59; Start 06/26/17 at 21:00 Fluoxetine HCl (PROzac) 30 mg DAILY PO Last administered on 07/04/17 08:28; Start 06/28/17 at 09:00; Stop 07/04/17 at 17:00; Status DC Carvedilol (Coreg) 3.125 mg BIDWMEALS PO Last administered on 07/14/17 16:52; Start 06/30/17 at 08:00 Fluoxetine HCl (PROzac) 40 mg DAILY PO Last administered on 07/08/17 08:52; Start 07/05/17 at 09:00; Stop 07/08/17 at 14:24; Status DC Fluoxetine HCl (PROzac) 40 mg DAILY PO Last administered on 07/14/17 08:03; Start 07/09/17 at 09:00 Potassium Chloride (Klor-Con) 20 meq DAILYWBKFT PO Last administered on 08:03; Start 07/11/17 at 08:00 Active Scripts Active Flecainide Acetate 100 Mg Tablet 50 Mg PO Q12HR 90 Days Metoprolol Tartrate 25 Mg Tablet 1 Tab PO BID 90 Days LAST DOSE GIVEN: DATE: TIME: NEXT DOSE DUE: DATE: TIME: Reported Risperdal (Risperidone) 0.5 Mg Tablet 0.5 Mg SL QHS Risperidone 0.5 Mg Tablet 0.5 Mg PO QHS Coreg (Carvedilol) 3.125 Mg Tablet 3.125 Mg PO BIDWMEALS Olanzapine 5 Mg Tablet 1.25 Mg PO PRN PRN Namenda (Memantine Hcl) 10 Mg Tablet 10 Mg PO BID Milk Of Magnesia (Magnesium Hydroxide) 2,400 Mg/10 Ml Oral.susp 2,400 Mg PO PRN Maalox Maximum Strength Susp (Mag Hydrox/Al Hydrox/Simeth) 355 Ml Oral.susp 15 Ml PO PRN Alum-Mag Hydroxide-Simeth Liq (Mag Hydrox/Al Hydrox/Simeth) 360 Ml Oral.susp 15 Ml PO PRN Prozac (Fluoxetine Hcl) 40 Mg Capsule 30 Mg PO DAILY Flomax (Tamsulosin Hcl) 0.4 Mg Cap.er.24h 1 Cap PO HS Zaditor (Ketotifen Fumarate) 5 Ml Drops 1 Drop EACHEYE BID Vitamin D3 (Cholecalciferol (Vitamin D3)) 5,000 Unit Tablet 50,000 Unit PO WEEKLY Tylenol (Acetaminophen) 325 Mg Tablet 650 Mg PO PRN Q6HRS PRN Colace (Docusate Sodium) 100 Mg Capsule 1 Cap PO BID Potassium Chloride Oral Liquid (Potassium Chloride) 20 Meq/15 Ml Liquid 20 Meq PEG DAILY LAST DOSE GIVEN: DATE: TIME: NEXT DOSE DUE: DATE: TIME: I have reviewed the current psychotropics carefully including drug interactions. Risk benefit ratio favors no change other than as noted in my dictated progress note. Diagnosis: Problems: (1) Anxiety disorder (2) Mild cognitive disorder (3) Impulse control disorder (4) Major depressive disorder, recurrent episode CHELSEA RINCON MD Jul 14, 2017 20:07
[2017-07-15 06:20] VITALS: BP 133/81
[2017-07-15] MEDS: CARVEDILOL 3.125 MG TABLET PO SCH (08:23)
[2017-07-15] MEDS: MEMANTINE 10 MG TABLET. PO SCH (08:23)
[2017-07-15] MEDS: DOCUSATE SODIUM 100 MG CAPSULE PO SCH (08:23)
[2017-07-15] MEDS: FLUoxetine HCL 20 MG CAPSULE PO SCH (08:23)
[2017-07-15] MEDS: POTASSIUM CHLORIDE 20 MEQ TABLET.ER. PO SCH (08:24)
[2017-07-15] MEDS: KETOTIFEN FUMARATE 0.025% OPHT SOLUTION BOTTLE. OU SCH (08:24)
[2017-07-15 08:25] VITALS: BP 133/81
[2017-07-15] MEDS: FLECAINIDE 50 MG TABLET. PO SCH (08:25)
--- NOTE | 2017-07-15 09:46 | NUR ---
[facility] Social Work Discharge Planning Form Patient Name KATIE BATISTA Admit Date: 06/19/17 DISCHARGE PLAN Discharge Destination: return home Transportation: Katie, son, to order picker/assembler 07/15/17 at 1500 Special Instructions/Notes: Please fax dc summary to PCP DISCHARGE TO HOME: Address: [address] [place] [id number] Responsible [employer]: self [facility]: [facility] PHONE: [phone] Primary Care Follow Up: Dr. Nany Gaines [address] [place] [id number] PHONE: [phone] FAX: [phone] FOLLOW UP APPOINTMENT SCHEDULED FOR July AT 11:00 In Home Care: [facility]
--- NOTE | 2017-07-15 11:06 | PN ---
DATE: 07/13/2017 PROGRESS NOTE HISTORY OF PRESENT ILLNESS: This is a late entry 07/13/2017 covers elements, not covered in my initial note 07/13/2017. Met with the patient evening of 07/13/2017. Met with him in his room. The patient has been more interactive, refused breakfast, upset that some other demented patient walked into his room and picked up his belongings if he leaves the room to go to the dining room. I processed this with him. REVIEW OF SYSTEMS: Ambulation impaired with walker. No CV, , pulmonary, eye, ENT system symptoms on review. MENTAL STATUS EXAM: Oriented to himself and situation. Speech coherent, abstraction fair, computation impaired, language function intact, attention span short. Mood and affect showing improvement. LABORATORY DATA: Reviewed. IMPRESSION: Major depressive disorder with psychotic features in partial remission, rest unchanged. PLAN: Continue psychotropics mentioned in my initial note. Transition to a lower level of care, this coming week. MAN Huan RINCON MD DR: SHAZIA/shanta JOB#: [id number] / [id number]
--- NOTE | 2017-07-15 11:11 | NUR ---
Behavior Intervention Response and Plan: BIRP Note: Behavior: Assumed Care of patient, patient located in Patient Room at shift change. Patient exhibited the following behavior Calm, Compliant, Cooperative. Brief assessment on rounds of vital signs, medication needs, lab studies, and pain. Treatment plan problems 1-2. Intervention: Patient assessed and the following interventions initiated safety checks 15 Minute Checks Cognitive Assessment , Head to toe Assessment , Medications. Response: After interactions and interventions patient responded in the following manner, Calm , Compliant ,Cooperative. Continue to assess behaviors and condition will continue to monitor throughout the shift as needed. Patient educated on ADL's, and hand hygiene. Plan: Continue to monitor Master Treatment Plan for patient's progress toward short term goals of Medication Compliance, Improved Mood, longterm goals to return to previous living setting vs placement. Continue to assess patient for changes in above assessment. Monitor for medication needs, pain, and safety concerns. Hourly rounding performed to ensure safe environment.
--- NOTE | 2017-07-15 13:20 | NUR ---
Transition Record was faxed to follow-up provider with the following elements: Reason for admission, procedures, tests, principal diagnosis, pending studies, patient instructions, 27/01 contact information for unit, phone number to obtain pending test results, plan for follow-up care, physician follow-up, advanced directive information, and medication list with dose, duration and instructions. This information was included in the following documents: History and physical, lab results, study results, progress notes, social work planning form, DC instruction form, patient visit summary, and medication reconciliation form. Date & time record faxed: 07/15 1018 Record faxed to: PCP Dr. Nany Gaines [phone] Record discussed with/ report given to: son upon bean picker, along with medication list. Prescriptions called in to [facility] pharmacy, Pharmacist Igor.
--- NOTE | 2017-07-15 13:21 | NUR ---
patient picked up by son and discharged to home with services. Medication list reviewed with son, who stated that home health nurse would be setting up medications.
--- NOTE | 2017-07-15 18:34 | PDOC ---
Exam Note: Óscar Note: Please also refer to the separate dictated note~for this date of service dictated separately.~Patient seen individually. Discussed the patient with Nursing staff reviewed the chart.~Reviewed interim history and current functioning. Reviewed vital signs,~Labs/ Radiology~and current medications noted below. Continue current treatment with the changes noted in the dictated addendum note Assessment: Vital Signs: Vital Signs Date Time Temp Pulse Resp B/P (MAP) Pulse Ox O2 Delivery O2 Flow Rate FiO2 07/15/17 08:25 85 133/81 07/15/17 06:20 98.0 18 94 07/14/17 05:52 Room Air I&O Intake and Output 07/15/17 06:59 Intake Total 480 ml Balance 480 ml Intake Oral 480 ml Current Medications: Meds: Current Medications Acetaminophen (Tylenol) 650 mg PRN Q6HRS PRN PO PAIN / TEMP; Start 06/19/17 at 04:00; Stop 06/19/17 at 19:17; Status DC Al Hydroxide/Mg Hydroxide (Mylanta Plus Xs) 15 ml PRN AFTMEALHC PRN PO DYSPEPSIA; Start 06/19/17 at 04:00; Stop 07/15/17 at 13:23; Status DC Magnesium Hydroxide (Milk Of Magnesia) 2,400 mg PRN QHS PRN PO CONSTIPATION; Start 06/19/17 at 04:00; Stop 07/15/17 at 13:23; Status DC Olanzapine (ZyPREXA ZYDIS) 1.25 mg PRN Q2HR PRN PO PSYCHOSIS; Start 06/19/17 at 04:00; Stop 07/15/17 at 13:23; Status DC Acetaminophen (Tylenol) 650 mg PRN Q6HRS PRN PO PAIN Last administered on 06/22t 04:58; Start 06/19/17 at 05:30; Stop 07/15/17 at 13:23; Status DC Docusate Sodium (Colace) 100 mg BID PO Last administered on 07/15/17at 08:23; Start 06/19/17 at 09:00; Stop 07/15/17 at 13:23; Status DC Ketotifen Fumarate (Zaditor) 1 drop BID OU Last administered on 07/15/17at 08:24 ; Start 06/19/17 at 09:00; Stop 07/15/17 at 13:23; Status DC Metoprolol Tartrate (Lopressor) 25 mg BID PO Last administered on 06/26/17 08 :07; Start 06/19/17 at 09:00; Stop 06/26/17 at 18:01; Status DC Potassium Chloride (KCl Oral Soln) 20 meq DAILY08 PO Last administered on 09:14; Start 06/19/17 at 08:00; Stop 07/10/17 at 18:51; Status DC Tamsulosin HCl (Flomax) 0.4 mg HS PO Last administered on 06/25/17 20:09; Start 06/19/17 at 21:00; Stop 06/26/17 at 18:02; Status DC Vitamin D (Vitamin D3) 50,000 unit WEEKLY PO Last administered on 07/10/17 09: 14; Start 06/19/17 at 09:00; Stop 07/15/17 at 13:23; Status DC Flecainide Acetate (Tambocor) 50 mg Q12HR PO Last administered on 07/15/17 08: 25; Start 06/19/17 at 09:00; Stop 07/15/17 at 13:23; Status DC Memantine (Namenda) 5 mg DAILY PO Last administered on 06/26/17 08:07; Start 06/20/17 at 09:00; Stop 06/26/17 at 10:40; Status DC Quetiapine Fumarate (SEROquel) 12.5 mg QHS PO Last administered on 06/19/17 20:22; Start 06/19/17 at 21:00; Stop 06/20/17 at 19:25; Status DC Risperidone (RisperDAL) 0.25 mg QHS SL Last administered on 06/23/17 19:29; Start 06/20/17 at 21:00; Stop 06/24/17 at 17:36; Status DC Fluoxetine HCl (PROzac) 10 mg DAILY PO Last administered on 06/23/17 08:06; Start 06/21/17 at 09:00; Stop 06/24/17 at 17:36; Status DC Fluoxetine HCl (PROzac) 20 mg DAILY PO Last administered on 06/27/17 07:50; Start 06/25/17 at 09:00; Stop 06/27/17 at 17:51; Status DC Risperidone (RisperDAL) 0.5 mg QHS SL Last administered on 07/14/17 20:00; Start 06/24/17 at 21:00; Stop 07/15/17 at 13:23; Status DC Memantine (Namenda) 10 mg DAILY PO Last administered on 06/29/17 08:00; Start 06/27/17 at 09:00; Stop 06/30/17 at 09:00; Status DC Memantine (Namenda) 10 mg BID PO Last administered on 07/15/17 08:23; Start at 09:00; Stop 07/15/17 at 13:23; Status DC Metoprolol Tartrate (Lopressor) 12.5 mg BID PO Last administered on 06/29/17 19:32; Start 06/26/17 at 21:00; Stop 06/29/17 at 20:06; Status DC Tamsulosin HCl (Flomax) 0.8 mg HS PO Last administered on 07/14/17 19:59; Start 06/26/17 at 21:00; Stop 07/15/17 at 13:23; Status DC Fluoxetine HCl (PROzac) 30 mg DAILY PO Last administered on 07/04/17 08:28; Start 06/28/17 at 09:00; Stop 07/04/17 at 17:00; Status DC Carvedilol (Coreg) 3.125 mg BIDWMEALS PO Last administered on 07/15/17 08:23; Start 06/30/17 at 08:00; Stop 07/15/17 at 13:23; Status DC Fluoxetine HCl (PROzac) 40 mg DAILY PO Last administered on 07/08/17 08:52; Start 07/05/17 at 09:00; Stop 07/08/17 at 14:24; Status DC Fluoxetine HCl (PROzac) 40 mg DAILY PO Last administered on 07/15/17 08:23; Start 07/09/17 at 09:00; Stop 07/15/17 at 13:23; Status DC Potassium Chloride (Klor-Con) 20 meq DAILYWBKFT PO Last administered on 08:24; Start 07/11/17 at 08:00; Stop 07/15/17 at 13:23; Status DC Active Scripts Active Flecainide Acetate 100 Mg Tablet 50 Mg PO Q12HR 90 Days Reported Risperdal (Risperidone) 0.5 Mg Tablet 0.5 Mg SL QHS Coreg (Carvedilol) 3.125 Mg Tablet 3.125 Mg PO BIDWMEALS Olanzapine 5 Mg Tablet 1.25 Mg PO PRN PRN MDD 5mg/24hrs Namenda (Memantine Hcl) 10 Mg Tablet 10 Mg PO BID Prozac (Fluoxetine Hcl) 40 Mg Capsule 40 Mg PO DAILY Flomax (Tamsulosin Hcl) 0.4 Mg Cap.er.24h 2 Cap PO HS Zaditor (Ketotifen Fumarate) 5 Ml Drops 1 Drop EACHEYE BID Vitamin D3 (Cholecalciferol (Vitamin D3)) 5,000 Unit Tablet 50,000 Unit PO WEEKLY FRIDAY Tylenol (Acetaminophen) 325 Mg Tablet 650 Mg PO PRN Q6HRS PRN Colace (Docusate Sodium) 100 Mg Capsule 1 Cap PO BID Potassium Chloride Oral Liquid (Potassium Chloride) 20 Meq/15 Ml Liquid 20 Meq PO DAILY LAST DOSE GIVEN: DATE: TIME: NEXT DOSE DUE: DATE: TIME: I have reviewed the current psychotropics carefully including drug interactions. Risk benefit ratio favors no change other than as noted in my dictated progress note. Diagnosis: Problems: (1) Major depressive disorder, recurrent episode (2) Impulse control disorder (3) Mild cognitive disorder (4) Anxiety disorder CHELSEA RINCON MD Jul 15, 2017 18:34
--- NOTE | 2017-07-16 08:39 | PN ---
DATE: 07/14/2017 PSYCHIATRIC PROGRESS NOTE This late entry of 07/14/2017 covers elements not covered in my initial note for 07/14/2017. SUBJECTIVE: I met with the patient evening of 07/14/2017. Overall, the patient remains isolative, withdrawn in his room. No suicidal or homicidal ideation. Comes out to the dining room for his meals, then back to his room because he fears someone may steal his things. He walks in the hallways. REVIEW OF SYSTEMS: Ambulation impaired with walker. No CV, , pulmonary, eye, ENT system symptoms on review. MENTAL STATUS EXAM: Reasonably oriented. Speech is coherent, has some latency. Abstraction fair, computation impaired, language function intact, attention span short. Mood and affect less depressed, more interactive, verbal as I met with him. LABORATORY DATA: Reviewed. IMPRESSION: Major depressive disorder with psychotic features in partial remission. Rest unchanged. PLAN: Continue psychotropics mentioned in my initial note. CHELSEA RINCON MD DR: SHAZIA/shanta JOB#: [id number] / [id number]
--- NOTE | 2017-07-16 21:22 | DS ---
DATE OF DISCHARGE: 07/15/2017 This is a late entry, covers the elements not covered in my initial note, 07/15/2017. REASON FOR ADMISSION: Please refer to the admission history for details. Briefly, the patient is an 87-year-old male who was admitted after he was brought to the Emergency Room at [facility] by his family on an account of increased agitation, being verbally aggressive and threatening towards his , who was quite frail and in a wheelchair, herself in the home. He was increasingly depressed, not eating, refusing medications, that failed outpatient psychiatric interventions. Behaviors deemed dangerous, unmanageable at home where he just lives with his frail . He was admitted for inpatient psychiatric stabilization. SIGNIFICANT FINDINGS AND CLINICAL COURSE: Following admission, the patient was seen daily individually by myself, followed medically per Dr. Sandoval/Dr. Ochoa. He is quite depressed, withdrawn, somewhat paranoid, almost catatonic at times standing, staring for long periods of time, not responding, refusing to eat and drink. Adjustments were made in his psychotropics. He seemed to respond positively to a combination of Prozac 40 mg a day, Risperdal liquid 0.5 mg at bedtime, Namenda 10 b.i.d., Zyprexa was used p.r.n. The psychosocial issues were significant in that he lives by himself with his frail . There are adult children, but the one daughter who is closely involved in their care was going to have knee surgery and was not going to be able to assist him very much. Another daughter came from out of state from [place] and attempted to facilitate some [place] benefits for him and older adult social work specialist staff worked very diligently to make the best disposition arrangements. Family were not able to follow through with the recommendations for assisted living. He ultimately returned home to outpatient treatment at the [facility] prior to discharge on 07/15/2017. REVIEW OF SYSTEMS: Ambulation impaired with walker. No CV, , pulmonary, eye system symptoms on review. MENTAL STATUS EXAM: Oriented to himself and situation. Speech coherent, has some latency, often responses monosyllabic. Abstraction fair, computation impaired, language function intact. Mood and affect is improved. No suicidal or homicidal ideation. CONDITION AT DISCHARGE: Improved. FINAL DIAGNOSES: Major depressive disorder with psychotic features in partial remission; anxiety disorder, unspecified; impulse control disorder, unspecified. Rest unchanged from admission. DISCHARGE MEDICATIONS: Please refer to the MRAD. DISCHARGE INSTRUCTIONS: Outpatient psychiatric followup at the [facility], medical followup with his primary care physician. Time for discharge and management greater than 30 minutes. MAN Huan RINCON MD DR: SHAZIA/shanta JOB#: [id number] / [id number]
== END 2017-07-15 13:23 | disposition home health service (06) | DRG 885 ==
LOC: ER 20:58 → GEROPSY 06-19 03:32
PROVIDERS: ADMIT Psychiatry & Neurology Psychiatry; ATTEND Psychiatry & Neurology Psychiatry
DX: F33.3 Major depressive disorder, recurrent, severe with psychotic symptoms (principal); E44.1 Mild protein-calorie malnutrition; I48.91 Unspecified atrial fibrillation; E11.9 Type 2 diabetes mellitus without complications; G31.84 Mild cognitive impairment of uncertain or unknown etiology; E78.5 Hyperlipidemia, unspecified; F41.9 Anxiety disorder, unspecified; Z68.1 Body mass index [BMI] 19.9 or less, adult; F63.9 Impulse disorder, unspecified; H40.9 Unspecified glaucoma; I10 Essential (primary) hypertension; K21.9 Gastro-esophageal reflux disease without esophagitis; J02.9 Acute pharyngitis, unspecified; N40.0 Benign prostatic hyperplasia without lower urinary tract symptoms; K59.09 Other constipation; Z91.81 History of falling; Z88.8 Allergy status to other drugs, medicaments and biological substances; Z88.6 Allergy status to analgesic agent; Z79.899 Other long term (current) drug therapy
CPT/HCPCS: 36415; 70450; 80053; 80061; 80307; 81001; 82306; 82607; 83036; 83540; 83550; 83735; 84436; 84443; 84480; 84484; 85025; 85027; 86593; 87070; 87880; 93005; G0480; 99285-25; G0479

== ENCOUNTER 2018-02-12 02:28 | Inpatient (IN) | payer MEDICARE, OTHER ==
[~2018-02-12] VITALS: Ht 167.6 cm; Wt 62.5 kg
[~2018-02-12 02:28] MED LIST changes: +CARV3.12 PO; +FLUO40CA9 PO; +MAG355OR12 PO; +MEMA10TA PO; +OLAN5TAB9 PO; +RISP0.5T24 SL; +RISP0.5T3 PO
--- NOTE | 2018-02-12 02:35 | ED.ADGEN ---
Past History Past Medical History: A-Fib, Dementia, Depression, GERD, Glaucoma, Hypertension , Other (DELANO SCHRADER MD) Past Surgical History: Other (DELANO SCHRADER MD) Alcohol Use: Occasionally Drug Use: None (DELANO SCHRADER MD) Adult General Chief Complaint Chief Complaint ".. I having the urge to hurt someone... I don't know why... I just want to hit people...".." I should just kill myself..." (DELANO SCHRADER MD) HPI HPI Patient is a 87 year old male who presents with above hx and complaints aggressive behavior at home. Yesterday police called because of his aggressive behavior. Pt. has hx of prior H admits with Dr. Porter for episodes of aggressive behavior, agitation, anxiety,dementia, delusions, depression and poor impulse control. Pt. careers adviser brought pt. to ED for his poor impulse control and increased agitation tonight. Pt. admits he wants to hurt people. No recent changes in meds. No travel, specific ill contacts. Pt. has hx. of PSVT, DM, Peripheral neuropathy. Pt. follows with Melissa Gaines. (DELANO SCHRADER MD) Review of Systems Review of Systems Pt. only complaints is that he really wants to hurt someone.. Constitutional: Denies fever or chills [] Eyes: Denies change in visual acuity, redness, or eye pain [] HENT: Denies nasal congestion or sore throat [] Respiratory: Denies cough or shortness of breath [] Cardiovascular: No additional information not addressed in HPI [] GI: Denies abdominal pain, nausea, vomiting, bloody stools or diarrhea [] : Denies dysuria or hematuria [] Musculoskeletal: Denies back pain or joint pain [] Integument: Denies rash or skin lesions [] Neurologic: Denies headache, focal weakness or sensory changes [] Endocrine: Denies polyuria or polydipsia [] All other systems were reviewed and found to be within normal limits, except as documented in this note. (DELANO SCHRADER MD) Family History Family History Non-contributory (DELANO SCHRADER MD) Current Medications Current Medications See Nursing for home meds. (DELANO SCHRADER MD) Allergies Allergies Allergies Coded Allergies Type Severity Reaction Last Updated Verified bimatoprost Allergy Intermediate 05/09/17 Yes lisinopril Allergy Intermediate 05/09/17 Yes meclofenamic acid Allergy Intermediate 05/09/17 Yes (LEW BRIDGES DO) Physical Exam Physical Exam Constitutional: no acute distress, non-toxic appearance. [] HENT: Normocephalic, atraumatic, bilateral external ears normal, oropharynx moist, no oral exudates, nose normal. [] Eyes: PERRLA, EOMI, conjunctiva normal, no discharge. [] Neck: Normal range of motion, no tenderness, supple, no stridor. [] Cardiovascular:Bradycardia Heart rate regular rhythm, no murmur []PMI to Lt. Lungs & Thorax: Bilateral breath sounds equal at apex on auscultation [] Scattered crackles and wheezes. Abdomen: Bowel sounds normal, soft, no tenderness, no masses, no pulsatile masses. [] Skin: Warm, dry, no erythema, no rash. [] Back: No tenderness, no CVA tenderness. [] Extremities: No tenderness, no cyanosis, no clubbing, ROM intact, no edema. [] Arthritic changes. Neurologic: Alert and oriented X 3, normal motor function, normal sensory function, no focal deficits noted. [] Psychologic: Affect anxious, , judgement appears to have limited insight, mood depression. Reports feels people are against him. Admit to urge or impulse to hit everyone around him. (DELANO SCHRADER MD) Current Patient Data Vital Signs Vital Signs Date Time Temp Pulse Resp B/P (MAP) Pulse Ox O2 Delivery O2 Flow Rate FiO2 02/12/18 03:05 98.4 71 18 98 Room Air (LEW BRIDGES DO) Lab Results Laboratory Tests Test 02/12/18 03:15 02/12/18 03:45 White Blood Count 5.8 x10^3/uL (4.0-11.0) Red Blood Count 4.45 x10^6/uL (4.30-5.70) Hemoglobin 14.4 g/dL (13.0-17.5) Hematocrit 42.1 % (39.0-53.0) Mean Corpuscular Volume 95 fL (79-100) Mean Corpuscular Hemoglobin 32 pg (25-35) Mean Corpuscular Hemoglobin Concent 34 g/dL (31-37) Red Cell Distribution Width 15.4 % (11.5-14.5) H Platelet Count 201 x10^3/uL (140-400) Neutrophils (%) (Auto) 48 % (31-73) Lymphocytes (%) (Auto) 35 % (24-48) Monocytes (%) (Auto) 11 % (0-9) H Eosinophils (%) (Auto) 4 % (0-3) H Basophils (%) (Auto) 1 % (0-3) Neutrophils # (Auto) 2.8 x10^3uL (1.8-7.7) Lymphocytes # (Auto) 2.0 x10^3/uL (1.0-4.8) Monocytes # (Auto) 0.6 x10^3/uL (0.0-1.1) Eosinophils # (Auto) 0.2 x10^3/uL (0.0-0.7) Basophils # (Auto) 0.1 x10^3/uL (0.0-0.2) Erythrocyte Sedimentation Rate 10 (0-15) Prothrombin Time 9.7 SEC (9.4-11.4) Prothrombin Time INR 0.9 (0.9-1.1) PTT 22 SEC (23-33) L Sodium Level 142 mmol/L (136-145) Potassium Level 4.2 mmol/L (3.5-5.1) Chloride Level 107 mmol/L (98-107) Carbon Dioxide Level 30 mmol/L (21-32) Anion Gap 5 (6-14) L Blood Urea Nitrogen 15 mg/dL (8-26) Creatinine 0.9 mg/dL (0.7-1.3) Estimated GFR (Cockcroft-Gault) 79.8 Glucose Level 82 mg/dL (70-99) Calcium Level 8.9 mg/dL (8.5-10.1) Magnesium Level 1.9 mg/dL (1.8-2.4) Creatine Kinase 49 U/L (39-308) Creatine Kinase MB (Mass) 1.2 ng/mL (0.0-3.6) Creatine Kinase MB Relative Index 2.4 % (0-4) Troponin I Quantitative < 0.017 ng/mL (0-0.055) AQ-Tog-Q-Type Natriuretic Peptide 125 pg/mL (0-449) Urine Collection Type Unknown Urine Color Yellow Urine Clarity Clear Urine pH 6.5 Urine Specific [place] 1.020 Urine Protein Neg (NEG-TRACE) Urine Glucose (UA) Neg mg/dL (NEG) Urine Ketones (Stick) Neg mg/dL (NEG) Urine Blood Neg (NEG) Urine Nitrite Neg (NEG) Urine Bilirubin Neg (NEG) Urine Urobilinogen Dipstick 0.2 mg/dL (0.2 mg/dL) Urine Leukocyte Esterase Neg (NEG) Urine RBC 0 /HPF (0-2) Urine WBC Occ /HPF (0-4) Urine Squamous Epithelial Cells Occ /LPF Urine Bacteria 0 /HPF (0-FEW) Urine Opiates Screen Neg (NEG) Urine Methadone Screen Neg (NEG) Urine Barbiturates Neg (NEG) Urine Phencyclidine Screen Neg (NEG) Urine Amphetamine/Methamphetamine Neg (NEG) Urine Benzodiazepines Screen Neg (NEG) Urine Cocaine Screen Neg (NEG) Urine Cannabinoids Screen Neg (NEG) Urine Ethyl Alcohol Neg (NEG) (LEW BRIDGES DO) Lab Results Laboratory Tests Test 02/12/18 03:15 02/12/18 03:45 White Blood Count 5.8 x10^3/uL (4.0-11.0) Red Blood Count 4.45 x10^6/uL (4.30-5.70) Hemoglobin 14.4 g/dL (13.0-17.5) Hematocrit 42.1 % (39.0-53.0) Mean Corpuscular Volume 95 fL (79-100) Mean Corpuscular Hemoglobin 32 pg (25-35) Mean Corpuscular Hemoglobin Concent 34 g/dL (31-37) Red Cell Distribution Width 15.4 % (11.5-14.5) H Platelet Count 201 x10^3/uL (140-400) Neutrophils (%) (Auto) 48 % (31-73) Lymphocytes (%) (Auto) 35 % (24-48) Monocytes (%) (Auto) 11 % (0-9) H Eosinophils (%) (Auto) 4 % (0-3) H Basophils (%) (Auto) 1 % (0-3) Neutrophils # (Auto) 2.8 x10^3uL (1.8-7.7) Lymphocytes # (Auto) 2.0 x10^3/uL (1.0-4.8) Monocytes # (Auto) 0.6 x10^3/uL (0.0-1.1) Eosinophils # (Auto) 0.2 x10^3/uL (0.0-0.7) Basophils # (Auto) 0.1 x10^3/uL (0.0-0.2) Erythrocyte Sedimentation Rate 10 (0-15) Prothrombin Time 9.7 SEC (9.4-11.4) Prothrombin Time INR 0.9 (0.9-1.1) PTT 22 SEC (23-33) L Sodium Level 142 mmol/L (136-145) Potassium Level 4.2 mmol/L (3.5-5.1) Chloride Level 107 mmol/L (98-107) Carbon Dioxide Level 30 mmol/L (21-32) Anion Gap 5 (6-14) L Blood Urea Nitrogen 15 mg/dL (8-26) Creatinine 0.9 mg/dL (0.7-1.3) Estimated GFR (Cockcroft-Gault) 79.8 Glucose Level 82 mg/dL (70-99) Calcium Level 8.9 mg/dL (8.5-10.1) Magnesium Level 1.9 mg/dL (1.8-2.4) Creatine Kinase 49 U/L (39-308) Creatine Kinase MB (Mass) 1.2 ng/mL (0.0-3.6) Creatine Kinase MB Relative Index 2.4 % (0-4) Troponin I Quantitative < 0.017 ng/mL (0-0.055) KQ-Fhc-T-Type Natriuretic Peptide 125 pg/mL (0-449) Urine Collection Type Unknown Urine Color Yellow Urine Clarity Clear Urine pH 6.5 Urine Specific [place] 1.020 Urine Protein Neg (NEG-TRACE) Urine Glucose (UA) Neg mg/dL (NEG) Urine Ketones (Stick) Neg mg/dL (NEG) Urine Blood Neg (NEG) Urine Nitrite Neg (NEG) Urine Bilirubin Neg (NEG) Urine Urobilinogen Dipstick 0.2 mg/dL (0.2 mg/dL) Urine Leukocyte Esterase Neg (NEG) Urine RBC 0 /HPF (0-2) Urine WBC Occ /HPF (0-4) Urine Squamous Epithelial Cells Occ /LPF Urine Bacteria 0 /HPF (0-FEW) Urine Opiates Screen Neg (NEG) Urine Methadone Screen Neg (NEG) Urine Barbiturates Neg (NEG) Urine Phencyclidine Screen Neg (NEG) Urine Amphetamine/Methamphetamine Neg (NEG) Urine Benzodiazepines Screen Neg (NEG) Urine Cocaine Screen Neg (NEG) Urine Cannabinoids Screen Neg (NEG) Urine Ethyl Alcohol Neg (NEG) (DELANO SCHRADER MD) EKG EKG My interpretation of EKG shows a sinus bradycardia at 58. Low voltage. Prolonged RI interval 238mm, Lt. axis, contour changes. No finding of acute STEMI[] (DELANO SCHRADER MD) Radiology/Procedures Radiology/Procedures I interpretation chest x-ray shows cardiomegaly . Tortuous aorta. Degenerative joint changes.[] (DELANO SCHRADER MD) Course & Med Decision Making Course & Med Decision Making Pertinent Labs and Imaging studies reviewed. (See chart for details) \\ Awaiting call back Tele Psych. - SB advised must go thru. as if new pt. 0330 Pt. currently sleeping. Still awaiting call back Tele Psych. 0530 Tele . Psych. equipment malfunction- 06- Attempt to repair equipment Check out- to Dr. Mora- [phone] - He will make disposition of pt. [] (DELANO SCHRADER MD) Course & Med Decision Making The patient was evaluated by a tele-psych. The psychiatrist advised inpatient admission. Dr. Porter has accepted the patient for admission to behavioral health at this facility. (LEW BRIDGES DO) Final Impression Final Impression 1. Agitated 2. Delusions of persecution 3. History dementia 4. History of anxiety 5. History depression 6. Depression[] 7. Hx Poor Impulse Control 8. Aggressive-Behavior's 9. Suicidal Ideation (DELANO SCHRADER MD) Dragon Disclaimer Dragon Disclaimer This electronic medical record was generated, in whole or in part, using a voice recognition dictation system. (DELANO SCHRADER MD) DELANO SCHRADER MD Feb 12, 2018 02:35 LEW BRIDGES DO Feb 12, 2018 09:05
[2018-02-12 03:45] LABS: BASO # 0.1 x10^3/uL (0.0-0.2); BASO % 1 % (0-3); EOS # 0.2 x10^3/uL (0.0-0.7); EOS % 4 % (0-3); HEMATOCRIT 42.1 % (39.0-53.0); HEMOGLOBIN 14.4 g/dL (13.0-17.5); LYMPH % 35 % (24-48); MEAN CORPUSCULAR HEMOGLOBIN 32 pg (25-35); MEAN CORPUSCULAR HGB CONC 34 g/dL (31-37); MEAN CORPUSCULAR VOLUME 95 fL (79-100); MONO # 0.6 x10^3/uL (0.0-1.1); MONO % 11 % (0-9); NEUT # 2.8 x10^3uL (1.8-7.7); NEUT % 48 % (31-73); PLATELET COUNT 201 x10^3/uL (140-400); RED BLOOD COUNT 4.45 x10^6/uL (4.30-5.70); RED CELL DISTRIBUTION WIDTH 15.4 % (11.5-14.5); WHITE BLOOD COUNT 5.8 x10^3/uL (4.0-11.0)
[2018-02-12 04:12] LABS: BILIRUBIN,URINE NEG (NEG); CLARITY,URINE CLEAR; COLOR,URINE YELLOW; GLUCOSE,URINE NEG (NEG)
[2018-02-12 04:13] LABS: BACTERIA,URINE 0 /HPF (0-FEW); BARBITURATES NEG (NEG); BENZODIAZEPINES NEG (NEG); CANNABINOIDS NEG (NEG); COCAINE NEG (NEG); METHADONE NEG (NEG); NITRITE,URINE NEG (NEG); OPIATES NEG (NEG); PHENCYCLIDINE NEG (NEG); RBC,URINE 0 /HPF (0-2); SQUAMOUS EPITHELIAL CELL,UR OCC /LPF; UROBILINOGEN,URINE 0.2 mg/dL (0.2 mg/dL); WBC,URINE OCC /HPF (0-4)
[2018-02-12 04:17] LABS: AMPHETAMINE/METHAMPHETAMINE NEG (NEG)
[2018-02-12 04:39] LABS: CALCIUM 8.9 mg/dL (8.5-10.1); CREATININE 0.9 mg/dL (0.7-1.3); GFR 79.8; MAGNESIUM 1.9 mg/dL (1.8-2.4); POTASSIUM 4.2 mmol/L (3.5-5.1)
[2018-02-12 04:44] LABS: SEDIMENTATION RATE 10 (0-15)
--- NOTE | 2018-02-12 06:57 | EKG ---
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
--- NOTE | 2018-02-12 07:53 | RAD ---
Portable chest, 02/12/2018: HISTORY: Dyspnea, chest pain The heart is mildly enlarged. There is calcific plaquing and tortuosity of the thoracic aorta. The pulmonary vascularity is normal. There is a focal calcific pleural plaque on the right. No acute infiltrate is seen. There is no evidence of pleural fluid. IMPRESSION: 1. Mild cardiomegaly and aortic atherosclerosis. 2. No acute cardiopulmonary abnormality is detected. Electronically signed by: Rusty Quiroz MD (02/12/2018 7:50 AM) [facility]
[2018-02-12 09:18] VITALS: BP 164/83
[2018-02-12] MEDS ORDERED: MAGNESIUM HYDROXIDE 2,400 MG/30 ML ORAL.SUSP. PO PRN (11:15)
[2018-02-12] MEDS ORDERED: MAG HYDROX/AL HYDROX/SIMETH 30 ML ORAL.SUSP PO PRN (11:15)
[2018-02-12] MEDS ORDERED: ACETAMINOPHEN 325 MG TABLET PO PRN ×2 (11:15→12:00)
[2018-02-12] MEDS ORDERED: METHYL SALICYLATE/MENTHOL TOPICAL OINTMENT 29GM TUBE. TP PRN (11:15)
[2018-02-12] MEDS ORDERED: GLYCERIN/WITCH HAZEL TOPICAL PADS 40'S JAR. TP PRN (12:00)
[2018-02-12] MEDS ORDERED: OLOP2.5D EACHEYE (12:02)
[2018-02-12] MEDS ORDERED: FLEC50TA PO (12:02)
[2018-02-12] MEDS ORDERED: ASPI-630 PO (12:02)
[2018-02-12] MEDS ORDERED: WITC1MED18 TP (12:02)
[2018-02-12] MEDS ORDERED: LACT10SO PO (12:02)
[2018-02-12] MEDS ORDERED: METO25TA4 PO (12:02)
[2018-02-12 15:42] VITALS: BP 118/79
--- NOTE | 2018-02-12 19:26 | CONS ---
DATE OF CONSULTATION: 02/12/2018 REASON FOR CONSULTATION: Medical management. HISTORY OF PRESENT ILLNESS: The patient is an 87-year-old male patient, who came to the Emergency Room stating that he has an urge to hurt someone. He does not know why I just want to hurt people, I should just kill myself. He apparently has the complaint of thoughts of hurting his at home and police was called because of his aggressive behavior. He was admitted before for similar episode with aggressive behavior, agitation, anxiety, dementia, and delusion and poor impulse control. He was brought actually by his venetian blind washer for his poor impulse control, increased agitation denied, and was [facility] stabilization. PAST MEDICAL HISTORY: Significant for hypertension, atrial fibrillation, myocardial infarction, hyperlipidemia, and type 2 diabetes. PSYCHIATRIC HISTORY: Significant for anxiety and major depressive disorder. He is status post hemorrhoidectomy. SOCIAL HISTORY: The patient was in the . He states that he was exposed to atomic bomb tested in 1955. He never smoked, does not drink alcohol. Lives at home with his . 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 ALLERGIES: He is allergic to , LISINOPRIL, METOCLOPRAMIDE, and MECLOFENAMIC ACID. MEDICATIONS: He is currently on the following medications: He is on tamsulosin 0.4 mg at bedtime, flecainide 50 mg twice a day, he is on metoprolol tartrate 25 mg twice a day, aspirin 81 mg once a day, Tylenol 650 mg every 6 hours, fluoxetine 40 mg once a day, olanzapine, he is also on Namenda 10 mg twice a day, lactulose 30 mL daily. He is on potassium chloride 20 mEq once a day, ketotifen fumarate 1 drop to both eyes twice a day, Pataday 1 drop to both eyes twice a day. He is on Colace 100 mg twice a day. He is on witch joseline one twice a day, cholecalciferol, vitamin D 50,000 units once. PHYSICAL EXAMINATION: GENERAL: When I examined him, he was sitting at the edge of the bed comfortably, in no apparent distress. He was somewhat pale, cachectic, no jaundice, cyanosis, or thyromegaly. No jugular venous distension. No lower limb edema. VITAL SIGNS: His heart rate was 62, blood pressure was 164/83, temperature was 97.3, respiratory rate was 18, and oxygen saturation was 97%. HEAD, EYES: Showed normocephalic, atraumatic. NECK: Supple. HEART: Showed normal first and second sounds. No gallop, rub or murmur. CHEST: Clear to auscultation. No crepitation or rhonchi. ABDOMEN: Distended, soft, and nontender. No guarding or rigidity. No organomegaly. Hernial orifice intact. Bowel sounds normal. NEUROLOGIC: He was awake, alert, responding appropriately. Cranial nerves intact. EXTREMITIES: He moves extremities without difficulty. He ambulates without assistance or assistive devices. LABORATORY DATA: Showed a white cell count 5800, hemoglobin 14, hematocrit 42, MCV 95, and a platelet count of 201,000, with normal manual differential. His chemistry showed a serum sodium 142, potassium 4.2, chloride 107, bicarbonate 30, anion gap of 5, BUN 15, creatinine 0.9, estimated GFR was 80 mL per minute. His glucose was 82, calcium was 8.9, magnesium was 1.9. His beta natriuretic peptide was 125. His prothrombin time was 9.7, INR of 0.9, aPTT was 22. His urinalysis showed the urine was yellow, clear with a pH of 6.5, specific gravity of 1.020. The urine was negative for protein, glucose, ketones, blood, nitrite, and leukocyte esterase. There were no rbc's, very few wbc's, and no bacteria. His urine toxicology screen was negative for opiates, methadone, barbiturates, phencyclidine, amphetamine, methamphetamine, benzodiazepine, cocaine, cannabinoids, and alcohol. He has had a chest x-ray, which showed that the heart is mildly enlarged. There is calcific plaquing and tortuosity of the thoracic aorta, the pulmonary vascularity is normal. There is a focal calcific pleural plaque on the right. No acute infiltrate is seen. There is no evidence of pleural fluid. IMPRESSION: In summary, this is an 87-year-old male patient who was admitted to the Emergency Room, he was brought there by his venetian blind washer on account of being aggressive, agitated, anxious, delusional, on a background of dementia with depression and poor impulse control. He admits that he wants to hurt people in particular his and was admitted to this unit for inpatient psychiatric stabilization. Medically, he is known to have high blood pressure, hyperlipidemia, atrial fibrillation, and type 2 diabetes. All his vital signs including his heart rate and blood pressure are within acceptable range. His lab work are all within normal range and he seemed to be overall medically stable. I would definitely continue with all his current medication and we will review any labs that are pending and make any necessary recommendation. Thank you, Dr. Porter for allowing me to participate in the care of this patient. CHANTEL DELAGDO MD DR: GUIDO/shanta JOB#: [id number] / [id number]
[2018-02-12] MEDS: METOPROLOL TART IMMED RELEASE 25 MG TABLET PO SCH (20:16)
[2018-02-12] MEDS: DOCUSATE SODIUM 100 MG CAPSULE PO SCH (20:16)
[2018-02-12] MEDS: MEMANTINE 10 MG TABLET. PO SCH (20:17)
[2018-02-12] MEDS: TAMSULOSIN 0.4 MG CAP.ER.24H. PO SCH (20:17)
--- NOTE | 2018-02-12 20:24 | PDOC ---
Exam Note: Óscar Note: Please also refer to the separate dictated note~for this date of service dictated separately.~Patient seen individually. Discussed the patient with Nursing staff reviewed the chart.~Reviewed interim history and current functioning. Reviewed vital signs,~Labs/ Radiology~and current medications noted below. Continue current treatment with the changes noted in the dictated addendum note Assessment: Vital Signs: Vital Signs Date Time Temp Pulse Resp B/P (MAP) Pulse Ox O2 Delivery O2 Flow Rate FiO2 02/12/18 20:16 82 118/79 02/12/18 15:42 97.6 17 97 Room Air Labs: Laboratory Tests Test 02/12/18 03:15 02/12/18 03:45 White Blood Count 5.8 x10^3/uL (4.0-11.0) Red Blood Count 4.45 x10^6/uL (4.30-5.70) Hemoglobin 14.4 g/dL (13.0-17.5) Hematocrit 42.1 % (39.0-53.0) Mean Corpuscular Volume 95 fL (79-100) Mean Corpuscular Hemoglobin 32 pg (25-35) Mean Corpuscular Hemoglobin Concent 34 g/dL (31-37) Red Cell Distribution Width 15.4 % (11.5-14.5) H Platelet Count 201 x10^3/uL (140-400) Neutrophils (%) (Auto) 48 % (31-73) Lymphocytes (%) (Auto) 35 % (24-48) Monocytes (%) (Auto) 11 % (0-9) H Eosinophils (%) (Auto) 4 % (0-3) H Basophils (%) (Auto) 1 % (0-3) Neutrophils # (Auto) 2.8 x10^3uL (1.8-7.7) Lymphocytes # (Auto) 2.0 x10^3/uL (1.0-4.8) Monocytes # (Auto) 0.6 x10^3/uL (0.0-1.1) Eosinophils # (Auto) 0.2 x10^3/uL (0.0-0.7) Basophils # (Auto) 0.1 x10^3/uL (0.0-0.2) Erythrocyte Sedimentation Rate 10 (0-15) Prothrombin Time 9.7 SEC (9.4-11.4) Prothrombin Time INR 0.9 (0.9-1.1) PTT 22 SEC (23-33) L Sodium Level 142 mmol/L (136-145) Potassium Level 4.2 mmol/L (3.5-5.1) Chloride Level 107 mmol/L (98-107) Carbon Dioxide Level 30 mmol/L (21-32) Anion Gap 5 (6-14) L Blood Urea Nitrogen 15 mg/dL (8-26) Creatinine 0.9 mg/dL (0.7-1.3) Estimated GFR (Cockcroft-Gault) 79.8 Glucose Level 82 mg/dL (70-99) Calcium Level 8.9 mg/dL (8.5-10.1) Magnesium Level 1.9 mg/dL (1.8-2.4) Creatine Kinase 49 U/L (39-308) Creatine Kinase MB (Mass) 1.2 ng/mL (0.0-3.6) Creatine Kinase MB Relative Index 2.4 % (0-4) Troponin I Quantitative < 0.017 ng/mL (0-0.055) SM-Aej-V-Type Natriuretic Peptide 125 pg/mL (0-449) Treponema pallidum Antibody Nonreactive (Nonreactive) Urine Collection Type Unknown Urine Color Yellow Urine Clarity Clear Urine pH 6.5 Urine Specific [place] 1.020 Urine Protein Neg (NEG-TRACE) Urine Glucose (UA) Neg mg/dL (NEG) Urine Ketones (Stick) Neg mg/dL (NEG) Urine Blood Neg (NEG) Urine Nitrite Neg (NEG) Urine Bilirubin Neg (NEG) Urine Urobilinogen Dipstick 0.2 mg/dL (0.2 mg/dL) Urine Leukocyte Esterase Neg (NEG) Urine RBC 0 /HPF (0-2) Urine WBC Occ /HPF (0-4) Urine Squamous Epithelial Cells Occ /LPF Urine Bacteria 0 /HPF (0-FEW) Urine Opiates Screen Neg (NEG) Urine Methadone Screen Neg (NEG) Urine Barbiturates Neg (NEG) Urine Phencyclidine Screen Neg (NEG) Urine Amphetamine/Methamphetamine Neg (NEG) Urine Benzodiazepines Screen Neg (NEG) Urine Cocaine Screen Neg (NEG) Urine Cannabinoids Screen Neg (NEG) Urine Ethyl Alcohol Neg (NEG) Current Medications: Meds: Current Medications Acetaminophen (Tylenol) 650 mg PRN Q6HRS PRN PO PAIN / TEMP; Start 02/12/18 at 11:15 Multi-Ingredient Ointment (Analgesic [place]) 1 nicole PRN QID PRN TP MUSCLE PAIN; Start 02/12/18 at 11:15 Al Hydroxide/Mg Hydroxide (Mylanta Plus Xs) 15 ml PRN AFTMEALHC PRN PO DYSPEPSIA; Start 02/12/18 at 11:15 Magnesium Hydroxide (Milk Of Magnesia) 2,400 mg PRN QHS PRN PO CONSTIPATION; Start 02/12/18 at 11:15 Acetaminophen (Tylenol) 650 mg PRN Q6HRS PRN PO PAIN; Start 02/12/18 at 12:00; Status Cancel Metoprolol Tartrate (Lopressor) 25 mg BID PO Last administered on 02/12/18at 20: 16; Start 02/12/18 at 21:00 Tamsulosin HCl (Flomax) 0.4 mg HS PO Last administered on 02/12/18at 20:17; Start 02/12/18 at 21:00 Aspirin (Children'S Aspirin) 81 mg DAILYWBKFT PO ; Start 02/13/18 at 08:00 Docusate Sodium (Colace) 100 mg BID PO Last administered on 02/12/18at 20:16; Start 02/12/18 at 21:00 Flecainide Acetate (Tambocor) 50 mg BID PO ; Start 02/12/18 at 21:00 Memantine (Namenda) 10 mg BID PO Last administered on 02/12/18at 20:17; Start 02/12/18 at 21:00 Ketotifen Fumarate (Zaditor) 1 drop BID OU ; Start 02/12/18 at 21:00 Potassium Chloride (Klor-Con) 20 meq DAILYWBKFT PO ; Start 02/13/18 at 08:00 Witch Dorothy/ Glycerin (A.e.r Pads) 1 each PRN BID PRN TP hemorrhoids; Start 02/12/18 at 12:00 Lactulose (Lactulose) 10 gm TID PRN PO CONSTIPATION; Start 02/12/18 at 12:00 Active Scripts Active Flecainide Acetate 100 Mg Tablet 50 Mg PO Q12HR 90 Days Reported Tucks (Witch Dorothy) 1 Each Med..pad 1 Each TP PRN BID PRN Pataday (Olopatadine Hcl) 2.5 Ml Drops 1 Drop EACHEYE BID Metoprolol Tartrate 25 Mg Tablet 25 Mg PO BID Lactulose 10 Gm/15 Ml Solution 10 Gm PO Flecainide Acetate 50 Mg Tablet 50 Mg PO BID Aspirin 81 Mg Tab.chew 81 Mg PO DAILY Risperdal (Risperidone) 0.5 Mg Tablet 0.5 Mg SL QHS Coreg (Carvedilol) 3.125 Mg Tablet 3.125 Mg PO BIDWMEALS Olanzapine 5 Mg Tablet 1.25 Mg PO PRN PRN MDD 5mg/24hrs Namenda (Memantine Hcl) 10 Mg Tablet 10 Mg PO BID Prozac (Fluoxetine Hcl) 40 Mg Capsule 40 Mg PO DAILY Flomax (Tamsulosin Hcl) 0.4 Mg Cap.er.24h 4.6 Mg PO HS Zaditor (Ketotifen Fumarate) 5 Ml Drops 1 Drop EACHEYE BID Vitamin D3 (Cholecalciferol (Vitamin D3)) 5,000 Unit Tablet 50,000 Unit PO WEEKLY FRIDAY Tylenol (Acetaminophen) 325 Mg Tablet 650 Mg PO PRN Q6HRS PRN Colace (Docusate Sodium) 100 Mg Capsule 1 Cap PO BID Potassium Chloride Oral Liquid (Potassium Chloride) 20 Meq/15 Ml Liquid 20 Meq PO DAILY LAST DOSE GIVEN: DATE: TIME: NEXT DOSE DUE: DATE: TIME: I have reviewed the current psychotropics carefully including drug interactions. Risk benefit ratio favors no change other than as noted in my dictated progress note. Diagnosis: Problems: (1) Anxiety disorder (2) Mild cognitive disorder (3) Impulse control disorder (4) Major depressive disorder, recurrent episode (5) Syncopal episodes (6) Weakness (7) PSVT (paroxysmal supraventricular tachycardia) (8) Cardiac syncope (9) Suicidal ideation CHELSEA RINCON MD Feb 12, 2018 20:24
[2018-02-12] MEDS: FLECAINIDE 50 MG TABLET. PO SCH (20:30)
[2018-02-12] MEDS: KETOTIFEN FUMARATE 0.025% OPHT SOLUTION BOTTLE. OU SCH (20:30)
[2018-02-13 05:59] VITALS: BP 115/70
[2018-02-13 07:56] LABS: BASO % 0 % (0-3); EOS % 1 % (0-3); HEMATOCRIT 39.6 % (39.0-53.0); HEMOGLOBIN 13.5 g/dL (13.0-17.5); LYMPH # 1.6 x10^3/uL (1.0-4.8); LYMPH % 27 % (24-48); MEAN CORPUSCULAR HEMOGLOBIN 32 pg (25-35); MEAN CORPUSCULAR HGB CONC 34 g/dL (31-37); MEAN CORPUSCULAR VOLUME 94 fL (79-100); MONO # 0.5 x10^3/uL (0.0-1.1); MONO % 8 % (0-9); NEUT # 3.8 x10^3uL (1.8-7.7); NEUT % 64 % (31-73); PLATELET COUNT 183 x10^3/uL (140-400); RED BLOOD COUNT 4.22 x10^6/uL (4.30-5.70); RED CELL DISTRIBUTION WIDTH 14.9 % (11.5-14.5)
[2018-02-13 08:11] LABS: ALBUMIN/GLOBULIN RATIO 0.9 (1.0-1.7); CREATININE 0.8 mg/dL (0.7-1.3); GFR 91.4; MAGNESIUM 1.9 mg/dL (1.8-2.4); POTASSIUM 3.9 mmol/L (3.5-5.1); TOTAL BILIRUBIN 0.4 mg/dL (0.2-1.0); TOTAL PROTEIN 6.3 g/dL (6.4-8.2)
[2018-02-13] MEDS: ASPIRIN 81 MG TAB.CHEW PO SCH (09:44)
[2018-02-13] MEDS: KETOTIFEN FUMARATE 0.025% OPHT SOLUTION BOTTLE. OU SCH ×2 (09:44→21:13)
[2018-02-13] MEDS: POTASSIUM CHLORIDE 20 MEQ TABLET.ER. PO SCH (09:44)
[2018-02-13] MEDS: METOPROLOL TART IMMED RELEASE 25 MG TABLET PO SCH ×2 (09:45→21:07)
[2018-02-13] MEDS: MEMANTINE 10 MG TABLET. PO SCH ×2 (09:45→21:07)
[2018-02-13] MEDS: FLECAINIDE 50 MG TABLET. PO SCH ×2 (09:45→21:07)
[2018-02-13] MEDS: DOCUSATE SODIUM 100 MG CAPSULE PO SCH ×2 (09:45→21:07)
--- NOTE | 2018-02-13 12:55 | HP ---
ADMIT DATE: 02/12/2018 PSYCHIATRIC ADMISSION HISTORY/EVALUATION This is a late entry, 02/12, covers elements not covered in my initial note, 02/12. I met with the patient in the evening of 02/12. Discussed with nursing staff on 3 or 4 occasions including prior to the patient's admission after he presented to the Emergency Room with his family on account of increased agitation towards his . The police were called to the home the previous night, he was having thoughts of hurting his . 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 There was a risk and danger of the patient hurting his . He was more confused, agitated, paranoid, psychotic, aggressive and he was brought to the Emergency Room and then referred to us for inpatient psychiatric stabilization. He was evaluated in the Emergency Room by the [facility] psychiatrist who recommended inpatient psychiatric hospitalization. CHIEF COMPLAINT: "I am okay." HISTORY OF PRESENT ILLNESS: The patient was last here with us about a year ago. He said he remembered me from then, but I am not entirely sure. He has been living at home recently with his , getting more depressed lately, paranoid, psychotic, agitated, aggressive and anxious. It all came to a head last night when the police intervened, even though this lasted only temporarily and then he was brought to the Emergency Room as noted above. He has had some sleep and appetite changes and threats towards his with aggression. No active suicidal ideation. No clear history of bipolar disorder. Patient has a past diagnosis of PTSD. PAST PSYCHIATRIC HISTORY: He was here with us in June 2016. PAST MEDICAL HISTORY: Positive for coronary artery disease, hyperlipidemia, BPH status post hemorrhoidectomy in April of 2017, atrial fibrillation, GERD, glaucoma, peroneal neuropathy, PSVT, diabetes mellitus. DRUG ALLERGIES: LISINOPRIL, LUMIGAN, MECLOMEN. CODE STATUS: Full code. ACCU-CHEKS: None. DIET: Regular. CURRENT PSYCHOTROPICS: Namenda 10 mg twice a day. PRIMARY CARE PHYSICIAN: Dr. Marli Gaines at [facility]. FAMILY HISTORY: Not contributory. SOCIAL HISTORY: The patient lives at home with his . No alcohol or drug abuse history is noted. No physical, sexual or elder abuse history, not known to be a perpetrator. REACTION TO HOSPITALIZATION: The patient accepting of it and he has been admitted by his who is his DPOA. ASSETS: Supportive family, supportive . MENTAL STATUS EXAM: The patient was seen individually evening of 02/12. He is oriented to himself and situation. Speech has some latency, coherent. Mood is depressed, anxious. Affect is mood congruent. He is quite paranoid, suspicious. Denies active suicidal or homicidal ideation. Short term memory has impairment. Intellect average. Insight limited, judgment marginal. Short term memory remembered 1 of 3 objects at 5 minutes, able to do just 1 step on serial sevens, unable to spell world forward or backward, but this is partly due to his language problems. IMPRESSION: Major depressive disorder with psychotic features; anxiety disorder, unspecified; impulse control disorder, unspecified; cognitive disorder, unspecified. Rest as above. PLAN: Admit to [facility] Unit at [facility]. I will see the patient daily individually from a psychiatric standpoint, medical followup per Dr. Ochoa/Dr. Britton. Continue patient on his current psychotropics, observe baseline, treat his depression, possible use of Depakote as a mood stabilizer, Cymbalta as an antidepressant, make all these decisions after baseline assessment. Estimated length of stay 10-12 days. DISPOSITION PLANS: Either to assisted living or back home with outpatient treatment. MAN Huan RINCON MD DR: SHAZIA/shanta JOB#: [id number] / [id number]
[2018-02-13 13:21] LABS: THYROID STIM HORMONE (TSH) 1.142 uIU/mL (0.358-3.740)
[2018-02-13 16:19] VITALS: BP 109/73
--- NOTE | 2018-02-13 20:50 | PDOC ---
Exam Note: Óscar Note: Please also refer to the separate dictated note~for this date of service dictated separately.~Patient seen individually. Discussed the patient with Nursing staff reviewed the chart.~Reviewed interim history and current functioning. Reviewed vital signs,~Labs/ Radiology~and current medications noted below. Continue current treatment with the changes noted in the dictated addendum note Assessment: Vital Signs: Vital Signs Date Time Temp Pulse Resp B/P (MAP) Pulse Ox O2 Delivery O2 Flow Rate FiO2 02/13/18 16:19 97.6 62 18 109/73 (85) 99 02/12/18 15:42 Room Air I&O Intake and Output 02/13/18 07:00 Intake Total 480 ml Balance 480 ml Intake Oral 480 ml # Bowel Movements 1 Labs: Laboratory Tests Test 02/13/18 07:00 White Blood Count 6.0 x10^3/uL (4.0-11.0) Red Blood Count 4.22 x10^6/uL (4.30-5.70) L Hemoglobin 13.5 g/dL (13.0-17.5) Hematocrit 39.6 % (39.0-53.0) Mean Corpuscular Volume 94 fL (79-100) Mean Corpuscular Hemoglobin 32 pg (25-35) Mean Corpuscular Hemoglobin Concent 34 g/dL (31-37) Red Cell Distribution Width 14.9 % (11.5-14.5) H Platelet Count 183 x10^3/uL (140-400) Neutrophils (%) (Auto) 64 % (31-73) Lymphocytes (%) (Auto) 27 % (24-48) Monocytes (%) (Auto) 8 % (0-9) Eosinophils (%) (Auto) 1 % (0-3) Basophils (%) (Auto) 0 % (0-3) Neutrophils # (Auto) 3.8 x10^3uL (1.8-7.7) Lymphocytes # (Auto) 1.6 x10^3/uL (1.0-4.8) Monocytes # (Auto) 0.5 x10^3/uL (0.0-1.1) Eosinophils # (Auto) 0.0 x10^3/uL (0.0-0.7) Basophils # (Auto) 0.0 x10^3/uL (0.0-0.2) Sodium Level 141 mmol/L (136-145) Potassium Level 3.9 mmol/L (3.5-5.1) Chloride Level 106 mmol/L (98-107) Carbon Dioxide Level 27 mmol/L (21-32) Anion Gap 8 (6-14) Blood Urea Nitrogen 15 mg/dL (8-26) Creatinine 0.8 mg/dL (0.7-1.3) Estimated GFR (Cockcroft-Gault) 91.4 BUN/Creatinine Ratio 19 (6-20) Glucose Level 107 mg/dL (70-99) H Calcium Level 9.0 mg/dL (8.5-10.1) Magnesium Level 1.9 mg/dL (1.8-2.4) Iron Level 104 ug/dL (65-175) Total Iron Binding Capacity 350 ug/dL (250-450) Iron Saturation 30 % (15-34) Total Bilirubin 0.4 mg/dL (0.2-1.0) Aspartate Amino Transferase (AST) 17 U/L (15-37) Alanine Aminotransferase (ALT) 14 U/L (16-63) L Alkaline Phosphatase 81 U/L (46-116) Total Protein 6.3 g/dL (6.4-8.2) L Albumin 3.0 g/dL (3.4-5.0) L Albumin/Globulin Ratio 0.9 (1.0-1.7) L Triglycerides Level 107 mg/dL (0-150) Cholesterol Level 205 mg/dL (0-200) H LDL Cholesterol, Calculated 144 mg/dL (0-100) H VLDL Cholesterol, Calculated 21 mg/dL (0-40) Non-HDL Cholesterol Calculated 165 mg/dL (0-129) H HDL Cholesterol 40 mg/dL (40-60) Cholesterol/HDL Ratio 5.0 Vitamin B12 Level 324 pg/mL (247-911) 25-Hydroxy Vitamin D Total 18.6 ng/mL (30-100) L Thyroid Stimulating Hormone (TSH) 1.142 uIU/mL (0.358-3.740) Current Medications: Meds: Current Medications Acetaminophen (Tylenol) 650 mg PRN Q6HRS PRN PO PAIN / TEMP; Start 02/12/18 at 11:15 Multi-Ingredient Ointment (Analgesic [place]) 1 nicole PRN QID PRN TP MUSCLE PAIN; Start 02/12/18 at 11:15 Al Hydroxide/Mg Hydroxide (Mylanta Plus Xs) 15 ml PRN AFTMEALHC PRN PO DYSPEPSIA; Start 02/12/18 at 11:15 Magnesium Hydroxide (Milk Of Magnesia) 2,400 mg PRN QHS PRN PO CONSTIPATION; Start 02/12/18 at 11:15 Acetaminophen (Tylenol) 650 mg PRN Q6HRS PRN PO PAIN; Start 02/12/18 at 12:00; Status Cancel Metoprolol Tartrate (Lopressor) 25 mg BID PO Last administered on 02/12/18at 20: 16; Start 02/12/18 at 21:00 Tamsulosin HCl (Flomax) 0.4 mg HS PO Last administered on 02/12/18at 20:17; Start 02/12/18 at 21:00 Aspirin (Children'S Aspirin) 81 mg DAILYWBKFT PO ; Start 02/13/18 at 08:00 Docusate Sodium (Colace) 100 mg BID PO Last administered on 02/12/18at 20:16; Start 02/12/18 at 21:00 Flecainide Acetate (Tambocor) 50 mg BID PO Last administered on 02/12/18at 20:30 ; Start 02/12/18 at 21:00 Memantine (Namenda) 10 mg BID PO Last administered on 02/12/18at 20:17; Start 02/12/18 at 21:00 Ketotifen Fumarate (Zaditor) 1 drop BID OU Last administered on 02/12/18at 20:30 ; Start 02/12/18 at 21:00 Potassium Chloride (Klor-Con) 20 meq DAILYWBKFT PO ; Start 02/13/18 at 08:00 Witch Dorothy/ Glycerin (A.e.r Pads) 1 each PRN BID PRN TP hemorrhoids; Start 02/12/18 at 12:00 Lactulose (Lactulose) 10 gm TID PRN PO CONSTIPATION; Start 02/12/18 at 12:00 Active Scripts Active Flecainide Acetate 100 Mg Tablet 50 Mg PO Q12HR 90 Days Reported Tucks (Witch Dorothy) 1 Each Med..pad 1 Each TP PRN BID PRN Pataday (Olopatadine Hcl) 2.5 Ml Drops 1 Drop EACHEYE BID Metoprolol Tartrate 25 Mg Tablet 25 Mg PO BID Lactulose 10 Gm/15 Ml Solution 10 Gm PO Flecainide Acetate 50 Mg Tablet 50 Mg PO BID Aspirin 81 Mg Tab.chew 81 Mg PO DAILY Risperdal (Risperidone) 0.5 Mg Tablet 0.5 Mg SL QHS Coreg (Carvedilol) 3.125 Mg Tablet 3.125 Mg PO BIDWMEALS Olanzapine 5 Mg Tablet 1.25 Mg PO PRN PRN MDD 5mg/24hrs Namenda (Memantine Hcl) 10 Mg Tablet 10 Mg PO BID Prozac (Fluoxetine Hcl) 40 Mg Capsule 40 Mg PO DAILY Flomax (Tamsulosin Hcl) 0.4 Mg Cap.er.24h 4.6 Mg PO HS Zaditor (Ketotifen Fumarate) 5 Ml Drops 1 Drop EACHEYE BID Vitamin D3 (Cholecalciferol (Vitamin D3)) 5,000 Unit Tablet 50,000 Unit PO WEEKLY FRIDAY Tylenol (Acetaminophen) 325 Mg Tablet 650 Mg PO PRN Q6HRS PRN Colace (Docusate Sodium) 100 Mg Capsule 1 Cap PO BID Potassium Chloride Oral Liquid (Potassium Chloride) 20 Meq/15 Ml Liquid 20 Meq PO DAILY LAST DOSE GIVEN: DATE: TIME: NEXT DOSE DUE: DATE: TIME: I have reviewed the current psychotropics carefully including drug interactions. Risk benefit ratio favors no change other than as noted in my dictated progress note. Diagnosis: Problems: (1) Anxiety disorder (2) Mild cognitive disorder (3) Impulse control disorder (4) Major depressive disorder, recurrent episode (5) Syncopal episodes (6) Weakness (7) PSVT (paroxysmal supraventricular tachycardia) (8) Cardiac syncope (9) Suicidal ideation CHELSEA RINCON MD Feb 13, 2018 20:50
[2018-02-13] MEDS: TAMSULOSIN 0.4 MG CAP.ER.24H. PO SCH (21:07)
[2018-02-13] MEDS: risperiDONE ORAL 1 MG/ML 30ml BOTTLE. SL SCH ×2 (22:30→22:59)
[2018-02-13 23:10] LABS: THYROXINE 6.2 ug/dL (4.5-12.0)
[2018-02-14 00:08] LABS: HEMOGLOBIN A1C 5.5 % (4.8-5.6)
[2018-02-14 06:46] VITALS: BP 117/63
[2018-02-14] MEDS: ASPIRIN 81 MG TAB.CHEW PO SCH (08:30)
[2018-02-14] MEDS: POTASSIUM CHLORIDE 20 MEQ TABLET.ER. PO SCH (08:30)
[2018-02-14] MEDS: DOCUSATE SODIUM 100 MG CAPSULE PO SCH ×2 (08:30→19:11)
[2018-02-14] MEDS: MEMANTINE 10 MG TABLET. PO SCH ×2 (08:31→19:11)
[2018-02-14] MEDS: FLECAINIDE 50 MG TABLET. PO SCH ×2 (08:31→19:14)
[2018-02-14] MEDS: FLUoxetine HCL 10 MG CAPSULE PO SCH (08:32)
[2018-02-14] MEDS: METOPROLOL TART IMMED RELEASE 25 MG TABLET PO SCH ×2 (08:32→19:11)
[2018-02-14] MEDS: KETOTIFEN FUMARATE 0.025% OPHT SOLUTION BOTTLE. OU SCH ×2 (08:34→08:50)
[2018-02-14] MEDS: CHOLECALCIFEROL (VITAMIN D3) 50,000 UNIT CAPSULE PO SCH (15:42)
[2018-02-14 16:38] VITALS: BP 139/76
[2018-02-14] MEDS: risperiDONE ORAL 1 MG/ML 30ml BOTTLE. SL SCH (19:12)
[2018-02-14] MEDS: TAMSULOSIN 0.4 MG CAP.ER.24H. PO SCH (19:12)
--- NOTE | 2018-02-14 23:08 | PDOC ---
Exam Note: Óscar Note: Please also refer to the separate dictated note~for this date of service dictated separately.~Patient seen individually. Discussed the patient with Nursing staff reviewed the chart.~Reviewed interim history and current functioning. Reviewed vital signs,~Labs/ Radiology~and current medications noted below. Continue current treatment with the changes noted in the dictated addendum note Assessment: Vital Signs: Vital Signs Date Time Temp Pulse Resp B/P (MAP) Pulse Ox O2 Delivery O2 Flow Rate FiO2 02/14/18 19:14 74 139/76 02/14/18 16:38 98.6 18 94 02/12/18 15:42 Room Air I&O Intake and Output 02/14/18 07:00 Intake Total 0 ml Balance 0 ml Intake Oral 0 ml Current Medications: Meds: Current Medications Acetaminophen (Tylenol) 650 mg PRN Q6HRS PRN PO PAIN / TEMP; Start 02/12/18 at 11:15 Multi-Ingredient Ointment (Analgesic [place]) 1 nicole PRN QID PRN TP MUSCLE PAIN; Start 02/12/18 at 11:15 Al Hydroxide/Mg Hydroxide (Mylanta Plus Xs) 15 ml PRN AFTMEALHC PRN PO DYSPEPSIA; Start 02/12/18 at 11:15 Magnesium Hydroxide (Milk Of Magnesia) 2,400 mg PRN QHS PRN PO CONSTIPATION; Start 02/12/18 at 11:15 Acetaminophen (Tylenol) 650 mg PRN Q6HRS PRN PO PAIN; Start 02/12/18 at 12:00; Status Cancel Metoprolol Tartrate (Lopressor) 25 mg BID PO Last administered on 02/14/18at 19: 11; Start 02/12/18 at 21:00 Tamsulosin HCl (Flomax) 0.4 mg HS PO Last administered on 02/14/18at 19:12; Start 02/12/18 at 21:00 Aspirin (Children'S Aspirin) 81 mg DAILYWBKFT PO Last administered on at 08:30; Start 02/13/18 at 08:00 Docusate Sodium (Colace) 100 mg BID PO Last administered on 02/14/18 19:11; Start 02/12/18 at 21:00 Flecainide Acetate (Tambocor) 50 mg BID PO Last administered on 02/14/18at 19:14 ; Start 02/12/18 at 21:00 Memantine (Namenda) 10 mg BID PO Last administered on 02/14/18at 19:11; Start at 21:00 Ketotifen Fumarate (Zaditor) 1 drop BID OU Last administered on 02/13/18at 21:13 ; Start 02/12/18 at 21:00 Potassium Chloride (Klor-Con) 20 meq DAILYWBKFT PO Last administered on at 08:30; Start 02/13/18 at 08:00 Witch Dorothy/ Glycerin (A.e.r Pads) 1 each PRN BID PRN TP hemorrhoids; Start 02/12/18 at 12:00 Lactulose (Lactulose) 10 gm TID PRN PO CONSTIPATION; Start 02/12/18 at 12:00 Fluoxetine HCl (PROzac) 10 mg DAILY PO Last administered on 02/14/18at 08:32; Start 02/14/18 at 09:00 Risperidone (RisperDAL) 0.25 mg HS SL Last administered on 02/14/18at 19:12; Start 02/13/18 at 22:30 Vitamin D (Vitamin D3) 50,000 unit WEEKLY PO Last administered on 02/14/18at 15: 42; Start 02/14/18 at 13:30 Active Scripts Active Flecainide Acetate 100 Mg Tablet 50 Mg PO Q12HR 90 Days Reported Tucks (Witch Dorothy) 1 Each Med..pad 1 Each TP PRN BID PRN Pataday (Olopatadine Hcl) 2.5 Ml Drops 1 Drop EACHEYE BID Metoprolol Tartrate 25 Mg Tablet 25 Mg PO BID Lactulose 10 Gm/15 Ml Solution 10 Gm PO Flecainide Acetate 50 Mg Tablet 50 Mg PO BID Aspirin 81 Mg Tab.chew 81 Mg PO DAILY Risperdal (Risperidone) 0.5 Mg Tablet 0.5 Mg SL QHS Coreg (Carvedilol) 3.125 Mg Tablet 3.125 Mg PO BIDWMEALS Olanzapine 5 Mg Tablet 1.25 Mg PO PRN PRN MDD 5mg/24hrs Namenda (Memantine Hcl) 10 Mg Tablet 10 Mg PO BID Prozac (Fluoxetine Hcl) 40 Mg Capsule 40 Mg PO DAILY Flomax (Tamsulosin Hcl) 0.4 Mg Cap.er.24h 4.6 Mg PO HS Zaditor (Ketotifen Fumarate) 5 Ml Drops 1 Drop EACHEYE BID Vitamin D3 (Cholecalciferol (Vitamin D3)) 5,000 Unit Tablet 50,000 Unit PO WEEKLY FRIDAY Tylenol (Acetaminophen) 325 Mg Tablet 650 Mg PO PRN Q6HRS PRN Colace (Docusate Sodium) 100 Mg Capsule 1 Cap PO BID Potassium Chloride Oral Liquid (Potassium Chloride) 20 Meq/15 Ml Liquid 20 Meq PO DAILY LAST DOSE GIVEN: DATE: TIME: NEXT DOSE DUE: DATE: TIME: I have reviewed the current psychotropics carefully including drug interactions. Risk benefit ratio favors no change other than as noted in my dictated progress note. Diagnosis: Problems: (1) Anxiety disorder (2) Mild cognitive disorder (3) Impulse control disorder (4) Major depressive disorder, recurrent episode (5) Syncopal episodes (6) Weakness (7) PSVT (paroxysmal supraventricular tachycardia) (8) Cardiac syncope (9) Suicidal ideation CHELSEA RINCON MD Feb 14, 2018 23:08
[2018-02-15 07:30] VITALS: BP 120/68
--- NOTE | 2018-02-15 07:45 | RAD ---
Chest, 2 views, 02/14/2018: HISTORY: Cough and congestion Comparison is made to a study from 02/12/2018. The heart is at the upper limits of normal in size. Coronary artery calcifications are present. There is tortuosity and calcific plaquing of the thoracic aorta. The pulmonary vascularity is normal. Calcific pleural plaquing is present in the right lower chest. No acute infiltrates are seen. There is no evidence of pleural fluid. Mild spurring is present in the spine. IMPRESSION: 1. Aortic atherosclerosis with coronary artery calcifications. 2. No acute abnormality is detected. Electronically signed by: Rusty Quiroz MD (02/15/2018 7:41 AM) [facility]
[2018-02-15] MEDS: ASPIRIN 81 MG TAB.CHEW PO SCH (09:05)
[2018-02-15] MEDS: POTASSIUM CHLORIDE 20 MEQ TABLET.ER. PO SCH (09:06)
[2018-02-15] MEDS: MEMANTINE 10 MG TABLET. PO SCH ×2 (09:06→19:57)
[2018-02-15] MEDS: FLUoxetine HCL 10 MG CAPSULE PO SCH (09:06)
[2018-02-15] MEDS: DOCUSATE SODIUM 100 MG CAPSULE PO SCH ×2 (09:06→19:57)
[2018-02-15] MEDS: FLECAINIDE 50 MG TABLET. PO SCH ×2 (09:07→20:00)
[2018-02-15] MEDS: METOPROLOL TART IMMED RELEASE 25 MG TABLET PO SCH ×2 (09:44→19:58)
[2018-02-15] MEDS: KETOTIFEN FUMARATE 0.025% OPHT SOLUTION BOTTLE. OU SCH ×2 (09:44→19:58)
[2018-02-15] MEDS ORDERED: PHENYLEPHRINE/COCOA BUTTER RECTAL SUPP. PR PRN (14:45)
[2018-02-15 16:03] VITALS: BP 140/69
[2018-02-15] MEDS: TAMSULOSIN 0.4 MG CAP.ER.24H. PO SCH (19:57)
[2018-02-15] MEDS: risperiDONE ORAL 1 MG/ML 30ml BOTTLE. SL SCH (19:59)
--- NOTE | 2018-02-15 20:08 | PDOC ---
Exam Note: Óscar Note: Please also refer to the separate dictated note~for this date of service dictated separately.~Patient seen individually. Discussed the patient with Nursing staff reviewed the chart.~Reviewed interim history and current functioning. Reviewed vital signs,~Labs/ Radiology~and current medications noted below. Continue current treatment with the changes noted in the dictated addendum note Assessment: Vital Signs: Vital Signs Date Time Temp Pulse Resp B/P (MAP) Pulse Ox O2 Delivery O2 Flow Rate FiO2 02/15/18 20:00 62 140/69 02/15/18 16:03 98.6 16 97 02/12/18 15:42 Room Air I&O Intake and Output 02/15/18 06:59 Intake Total 600 ml Balance 600 ml Intake Oral 600 ml # Bowel Movements 2 Current Medications: Meds: Current Medications Acetaminophen (Tylenol) 650 mg PRN Q6HRS PRN PO PAIN / TEMP; Start 02/12/18 at 11:15 Multi-Ingredient Ointment (Analgesic [place]) 1 nicole PRN QID PRN TP MUSCLE PAIN; Start 02/12/18 at 11:15 Al Hydroxide/Mg Hydroxide (Mylanta Plus Xs) 15 ml PRN AFTMEALHC PRN PO DYSPEPSIA; Start 02/12/18 at 11:15 Magnesium Hydroxide (Milk Of Magnesia) 2,400 mg PRN QHS PRN PO CONSTIPATION; Start 02/12/18 at 11:15 Acetaminophen (Tylenol) 650 mg PRN Q6HRS PRN PO PAIN; Start 02/12/18 at 12:00; Status Cancel Metoprolol Tartrate (Lopressor) 25 mg BID PO Last administered on 02/15/18at 19: 58; Start 02/12/18 at 21:00 Tamsulosin HCl (Flomax) 0.4 mg HS PO Last administered on 02/15/18 19:57; Start 02/12/18 at 21:00 Aspirin (Children'S Aspirin) 81 mg DAILYWBKFT PO Last administered on at 09:05; Start 02/13/18 at 08:00 Docusate Sodium (Colace) 100 mg BID PO Last administered on 02/15/18at 19:57; Start 02/12/18 at 21:00 Flecainide Acetate (Tambocor) 50 mg BID PO Last administered on 02/15/18 20:00 ; Start 02/12/18 at 21:00 Memantine (Namenda) 10 mg BID PO Last administered on 02/15/18 19:57; Start at 21:00 Ketotifen Fumarate (Zaditor) 1 drop BID OU Last administered on 02/15/18 19:58 ; Start 02/12/18 at 21:00 Potassium Chloride (Klor-Con) 20 meq DAILYWBKFT PO Last administered on 09:06; Start 02/13/18 at 08:00 Witch Dorothy/ Glycerin (A.e.r Pads) 1 each PRN BID PRN TP hemorrhoids Last administered on 02/15/18 10:00; Start 02/12/18 at 12:00 Lactulose (Lactulose) 10 gm TID PRN PO CONSTIPATION; Start 02/12/18 at 12:00 Fluoxetine HCl (PROzac) 10 mg DAILY PO Last administered on 02/15/18 09:06; Start 02/14/18 at 09:00 Risperidone (RisperDAL) 0.25 mg HS SL Last administered on 02/15/18 19:59; Start 02/13/18 at 22:30 Vitamin D (Vitamin D3) 50,000 unit WEEKLY PO Last administered on 02/14/18 15: 42; Start 02/14/18 at 13:30 Phenylephrine/ Shark Liver Oil (Preparation H) 1 supp PRN Q8HRS PRN [place] RECTAL PAIN Last administered on 02/15/18 17:28; Start 02/15/18 at 14:45 Active Scripts Active Flecainide Acetate 100 Mg Tablet 50 Mg PO Q12HR 90 Days Reported Tucks (Witch Dorothy) 1 Each Med..pad 1 Each TP PRN BID PRN Pataday (Olopatadine Hcl) 2.5 Ml Drops 1 Drop EACHEYE BID Metoprolol Tartrate 25 Mg Tablet 25 Mg PO BID Lactulose 10 Gm/15 Ml Solution 10 Gm PO Flecainide Acetate 50 Mg Tablet 50 Mg PO BID Aspirin 81 Mg Tab.chew 81 Mg PO DAILY Risperdal (Risperidone) 0.5 Mg Tablet 0.5 Mg SL QHS Coreg (Carvedilol) 3.125 Mg Tablet 3.125 Mg PO BIDWMEALS Olanzapine 5 Mg Tablet 1.25 Mg PO PRN PRN MDD 5mg/24hrs Namenda (Memantine Hcl) 10 Mg Tablet 10 Mg PO BID Prozac (Fluoxetine Hcl) 40 Mg Capsule 40 Mg PO DAILY Flomax (Tamsulosin Hcl) 0.4 Mg Cap.er.24h 4.6 Mg PO HS Zaditor (Ketotifen Fumarate) 5 Ml Drops 1 Drop EACHEYE BID Vitamin D3 (Cholecalciferol (Vitamin D3)) 5,000 Unit Tablet 50,000 Unit PO WEEKLY FRIDAY Tylenol (Acetaminophen) 325 Mg Tablet 650 Mg PO PRN Q6HRS PRN Colace (Docusate Sodium) 100 Mg Capsule 1 Cap PO BID Potassium Chloride Oral Liquid (Potassium Chloride) 20 Meq/15 Ml Liquid 20 Meq PO DAILY LAST DOSE GIVEN: DATE: TIME: NEXT DOSE DUE: DATE: TIME: I have reviewed the current psychotropics carefully including drug interactions. Risk benefit ratio favors no change other than as noted in my dictated progress note. Diagnosis: Problems: (1) Anxiety disorder (2) Mild cognitive disorder (3) Impulse control disorder (4) Major depressive disorder, recurrent episode (5) Syncopal episodes (6) Weakness (7) PSVT (paroxysmal supraventricular tachycardia) (8) Cardiac syncope (9) Suicidal ideation CHELSEA RINCON MD Feb 15, 2018 20:08
--- NOTE | 2018-02-15 23:07 | PN ---
DATE: 02/13/2018 PSYCHIATRIC PROGRESS NOTE This is a late entry, 02/13, covers elements not covered in my initial note. SUBJECTIVE: I met with the patient evening of 02/13. Overall, the patient remains withdrawn, spends much time in his room, somewhat suspicious, depressed. REVIEW OF SYSTEMS: No CV, , pulmonary, eye, ENT system symptoms on review. Rest of the 14-point review of systems negative other than as above. MENTAL STATUS EXAM: The patient was lying in bed, oriented to himself and situation. Speech has some latency, often responses monosyllabic. Abstraction fair, computation impaired. Latency of response is evident, low in rate and rhythm, low in volume. No active suicidal or homicidal ideation. Mood and affect is depressed. LABORATORY DATA: Reviewed. IMPRESSION: Major depressive disorder with psychotic features; cognitive disorder, unspecified. PLAN: Restart Prozac 10 mg a day, Risperdal 0.25 mg p.o. at bedtime. He had responded to this combination in the past. Continue Namenda 10 mg b.i.d. Reviewed drug interactions at some length. CHELSEA RINCON MD DR: SHAZIA/shanta JOB#: [id number] / [id number]
--- NOTE | 2018-02-15 23:10 | PN ---
DATE: 02/14/2018 PSYCHIATRIC PROGRESS NOTE This is a late entry, 02/14, covers elements not covered in my initial note. SUBJECTIVE: I met with the patient in the evening. The patient slept 7-3/4 hours previous night. Remains somewhat withdrawn, depressed, irritable when given his medications, at times noncompliant, obsessed with bowels. REVIEW OF SYSTEMS: No CV, , pulmonary, eye system symptoms on review. A 14-point review of system negative other than above. MENTAL STATUS EXAM: Oriented to himself and situation. Speech moderate latency, often responses monosyllabic. Abstraction fair, computation impaired, language function intact, attention span short. Mood and affect somewhat withdrawn. LABORATORY DATA: Reviewed. IMPRESSION: Major depressive disorder with psychotic features; cognitive disorder, unspecified. PLAN: Continue psychotropics mentioned in my initial note. Prozac, Risperdal, and Namenda for now. MAN Huan RINCON MD DR: SHAZIA/shanta JOB#: [id number] / [id number]
[2018-02-16 06:23] VITALS: BP 129/73
[2018-02-16] MEDS: ASPIRIN 81 MG TAB.CHEW PO SCH (09:07)
[2018-02-16] MEDS: FLUoxetine HCL 10 MG CAPSULE PO SCH (09:08)
[2018-02-16] MEDS: POTASSIUM CHLORIDE 20 MEQ TABLET.ER. PO SCH (09:08)
[2018-02-16] MEDS: DOCUSATE SODIUM 100 MG CAPSULE PO SCH ×2 (09:08→19:44)
[2018-02-16] MEDS: MEMANTINE 10 MG TABLET. PO SCH ×2 (09:08→19:44)
[2018-02-16] MEDS: FLECAINIDE 50 MG TABLET. PO SCH ×2 (09:13→19:45)
[2018-02-16] MEDS: KETOTIFEN FUMARATE 0.025% OPHT SOLUTION BOTTLE. OU SCH ×2 (09:28→19:55)
[2018-02-16] MEDS: METOPROLOL TART IMMED RELEASE 25 MG TABLET PO SCH ×2 (09:29→19:44)
[2018-02-16 16:21] VITALS: BP 122/66
[2018-02-16] MEDS: TAMSULOSIN 0.4 MG CAP.ER.24H. PO SCH (19:44)
[2018-02-16] MEDS: risperiDONE ORAL 1 MG/ML 30ml BOTTLE. SL SCH (19:46)
--- NOTE | 2018-02-16 22:27 | PDOC ---
Exam Note: Óscar Note: Please also refer to the separate dictated note~for this date of service dictated separately.~Patient seen individually. Discussed the patient with Nursing staff reviewed the chart.~Reviewed interim history and current functioning. Reviewed vital signs,~Labs/ Radiology~and current medications noted below. Continue current treatment with the changes noted in the dictated addendum note Assessment: Vital Signs: Vital Signs Date Time Temp Pulse Resp B/P (MAP) Pulse Ox O2 Delivery O2 Flow Rate FiO2 02/16/18 19:45 60 122/66 02/16/18 16:21 97.9 16 97 02/16/18 06:23 Room Air I&O Intake and Output 02/16/18 06:59 Intake Total 120 ml Balance 120 ml Intake Oral 120 ml Current Medications: Meds: Current Medications Acetaminophen (Tylenol) 650 mg PRN Q6HRS PRN PO PAIN / TEMP; Start 02/12/18 at 11:15 Multi-Ingredient Ointment (Analgesic [place]) 1 nicole PRN QID PRN TP MUSCLE PAIN; Start 02/12/18 at 11:15 Al Hydroxide/Mg Hydroxide (Mylanta Plus Xs) 15 ml PRN AFTMEALHC PRN PO DYSPEPSIA; Start 02/12/18 at 11:15 Magnesium Hydroxide (Milk Of Magnesia) 2,400 mg PRN QHS PRN PO CONSTIPATION; Start 02/12/18 at 11:15 Acetaminophen (Tylenol) 650 mg PRN Q6HRS PRN PO PAIN; Start 02/12/18 at 12:00; Status Cancel Metoprolol Tartrate (Lopressor) 25 mg BID PO Last administered on 02/16/18 19: 44; Start 02/12/18 at 21:00 Tamsulosin HCl (Flomax) 0.4 mg HS PO Last administered on 02/16/18 19:44; Start 02/12/18 at 21:00 Aspirin (Children'S Aspirin) 81 mg DAILYWBKFT PO Last administered on at 09:07; Start 02/13/18 at 08:00 Docusate Sodium (Colace) 100 mg BID PO Last administered on 02/16/18 19:44; Start 02/12/18 at 21:00 Flecainide Acetate (Tambocor) 50 mg BID PO Last administered on 02/16/18 19:45 ; Start 02/12/18 at 21:00 Memantine (Namenda) 10 mg BID PO Last administered on 02/16/18 19:44; Start at 21:00 Ketotifen Fumarate (Zaditor) 1 drop BID OU Last administered on 02/16/18 19:55 ; Start 02/12/18 at 21:00 Potassium Chloride (Klor-Con) 20 meq DAILYWBKFT PO Last administered on at 09:08; Start 02/13/18 at 08:00 Witch [place]/ Glycerin (A.e.r Pads) 1 each PRN BID PRN TP hemorrhoids Last administered on 02/15/18 10:00; Start 02/12/18 at 12:00 Lactulose (Lactulose) 10 gm TID PRN PO CONSTIPATION; Start 02/12/18 at 12:00 Fluoxetine HCl (PROzac) 10 mg DAILY PO Last administered on 02/16/18 09:08; Start 02/14/18 at 09:00; Stop 02/16/18 at 13:50; Status DC Risperidone (RisperDAL) 0.25 mg HS SL Last administered on 02/16/18 19:46; Start 02/13/18 at 22:30 Vitamin D (Vitamin D3) 50,000 unit WEEKLY PO Last administered on 02/14/18at 15: 42; Start 02/14/18 at 13:30 Phenylephrine/ Shark Liver Oil (Preparation H) 1 supp PRN Q8HRS PRN [place] RECTAL PAIN Last administered on 02/15/18at 17:28; Start 02/15/18 at 14:45 Fluvoxamine Maleate (Luvox) 25 mg DAILY PO ; Start 02/17/18 at 09:00 Active Scripts Active Flecainide Acetate 100 Mg Tablet 50 Mg PO Q12HR 90 Days Reported Tucks (Witch Dorothy) 1 Each Med..pad 1 Each TP PRN BID PRN Pataday (Olopatadine Hcl) 2.5 Ml Drops 1 Drop EACHEYE BID Metoprolol Tartrate 25 Mg Tablet 25 Mg PO BID Lactulose 10 Gm/15 Ml Solution 10 Gm PO Flecainide Acetate 50 Mg Tablet 50 Mg PO BID Aspirin 81 Mg Tab.chew 81 Mg PO DAILY Risperdal (Risperidone) 0.5 Mg Tablet 0.5 Mg SL QHS Coreg (Carvedilol) 3.125 Mg Tablet 3.125 Mg PO BIDWMEALS Olanzapine 5 Mg Tablet 1.25 Mg PO PRN PRN MDD 5mg/24hrs Namenda (Memantine Hcl) 10 Mg Tablet 10 Mg PO BID Prozac (Fluoxetine Hcl) 40 Mg Capsule 40 Mg PO DAILY Flomax (Tamsulosin Hcl) 0.4 Mg Cap.er.24h 4.6 Mg PO HS Zaditor (Ketotifen Fumarate) 5 Ml Drops 1 Drop EACHEYE BID Vitamin D3 (Cholecalciferol (Vitamin D3)) 5,000 Unit Tablet 50,000 Unit PO WEEKLY FRIDAY Tylenol (Acetaminophen) 325 Mg Tablet 650 Mg PO PRN Q6HRS PRN Colace (Docusate Sodium) 100 Mg Capsule 1 Cap PO BID Potassium Chloride Oral Liquid (Potassium Chloride) 20 Meq/15 Ml Liquid 20 Meq PO DAILY LAST DOSE GIVEN: DATE: TIME: NEXT DOSE DUE: DATE: TIME: I have reviewed the current psychotropics carefully including drug interactions. Risk benefit ratio favors no change other than as noted in my dictated progress note. Diagnosis: Problems: (1) Anxiety disorder (2) Mild cognitive disorder (3) Impulse control disorder (4) Major depressive disorder, recurrent episode (5) Syncopal episodes (6) Weakness (7) PSVT (paroxysmal supraventricular tachycardia) (8) Cardiac syncope (9) Suicidal ideation CHELSEA RINCON MD Feb 16, 2018 22:27
[2018-02-17 06:11] VITALS: BP 128/73
[2018-02-17] MEDS: ASPIRIN 81 MG TAB.CHEW PO SCH (07:52)
[2018-02-17] MEDS: DOCUSATE SODIUM 100 MG CAPSULE PO SCH ×2 (07:53→21:02)
[2018-02-17] MEDS: POTASSIUM CHLORIDE 20 MEQ TABLET.ER. PO SCH (07:53)
[2018-02-17] MEDS: MEMANTINE 10 MG TABLET. PO SCH ×2 (07:53→21:03)
[2018-02-17] MEDS: KETOTIFEN FUMARATE 0.025% OPHT SOLUTION BOTTLE. OU SCH ×2 (07:54→21:03)
[2018-02-17] MEDS: FLECAINIDE 50 MG TABLET. PO SCH ×2 (07:56→21:04)
--- NOTE | 2018-02-17 12:21 | PN ---
DATE: 02/15/2018 PSYCHIATRIC PROGRESS NOTE This is a late entry, 02/15, covers elements not covered in my initial note. SUBJECTIVE: I met with the patient in the evening in his room. He tends to spend much time in his room, slept 5-3/4 hours previous evening. He is obsessed about sitting on the toilet, obsessed about his hemorrhoids wanting suppositories and his nursing staff are addressing this. He did take a shower, has had to be from another patient on the unit who is very confused and the patient gets agitated with him. Other than GI bowel obsession, no CV, , pulmonary, eye system symptoms on review. MENTAL STATUS EXAM: Oriented to himself and situation. Speech is coherent, has some latency. Abstraction fair, computation impaired, language function intact, attention span short. Mood and affect remain somewhat anxious, depressed, obsessive. LABORATORY DATA: Reviewed. IMPRESSION: Major depressive disorder, mild cognitive impairment. PLAN: Continue Namenda, Prozac, Risperdal. May change Prozac to Luvox for OCD symptoms, but we will give it another day or so. MAN Huan RINCON MD DR: SHAZIA/shanta JOB#: [id number] / [id number]
[2018-02-17] MEDS: METOPROLOL TART IMMED RELEASE 25 MG TABLET PO SCH ×2 (12:36→21:03)
[2018-02-17 12:54] VITALS: BP 125/77
[2018-02-17 16:10] VITALS: BP 130/70
[2018-02-17] MEDS: TAMSULOSIN 0.4 MG CAP.ER.24H. PO SCH (21:02)
[2018-02-17] MEDS: risperiDONE ORAL 1 MG/ML 30ml BOTTLE. SL SCH (21:04)
--- NOTE | 2018-02-18 00:23 | PN ---
DATE: 02/16/2018 PSYCHIATRIC PROGRESS NOTE This is a late entry, 02/16, covers elements not covered in my initial note. SUBJECTIVE: I met with the patient in the evening. He tends to withdraw to his room, slept 6-1/4 hours previous evening, obsessed regarding sitting on the toilet all day, resents to come out of his room, complains of having a hernia. REVIEW OF SYSTEMS: No CV, , pulmonary, eye, ENT system symptoms on review. MENTAL STATUS EXAM: Oriented to himself and situation. Speech moderate latency, often responses monosyllabic. Abstraction fair, computation impaired, language function intact. Mood and affect somewhat dysphoric, obsessive, anxious. LABORATORY DATA: Reviewed. IMPRESSION: Unchanged from initial note, major depressive disorder with psychotic features; cognitive disorder, unspecified; symptoms of obsessive-compulsive disorder. PLAN: Change Prozac 10 mg a day to Luvox 25 mg a day. Rest unchanged for now including Namenda and Risperdal. MAN Huan RINCON MD DR: SHAZIA/shanta JOB#: [id number] / [id number]
[2018-02-18 05:39] VITALS: BP 117/61
[2018-02-18] MEDS: MEMANTINE 10 MG TABLET. PO SCH ×2 (08:05→20:05)
[2018-02-18] MEDS: FLECAINIDE 50 MG TABLET. PO SCH ×2 (08:05→20:05)
[2018-02-18] MEDS: DOCUSATE SODIUM 100 MG CAPSULE PO SCH ×2 (08:05→20:04)
[2018-02-18] MEDS: METOPROLOL TART IMMED RELEASE 25 MG TABLET PO SCH ×2 (08:05→20:04)
[2018-02-18] MEDS: POTASSIUM CHLORIDE 20 MEQ TABLET.ER. PO SCH (08:06)
[2018-02-18] MEDS: KETOTIFEN FUMARATE 0.025% OPHT SOLUTION BOTTLE. OU SCH ×2 (08:06→20:04)
[2018-02-18] MEDS: ASPIRIN 81 MG TAB.CHEW PO SCH (08:07)
[2018-02-18 16:12] VITALS: BP 106/66
[2018-02-18] MEDS: TAMSULOSIN 0.4 MG CAP.ER.24H. PO SCH (20:04)
[2018-02-18] MEDS: risperiDONE ORAL 1 MG/ML 30ml BOTTLE. SL SCH (20:05)
--- NOTE | 2018-02-19 00:16 | PN ---
DATE: 02/17/2018 PSYCHIATRIC PROGRESS NOTE This is a late entry, 02/17, covers elements not covered in my initial note. SUBJECTIVE: I met with the patient in the evening. The patient slept 5-3/4 hours previous evening. He remains bowel obsessed, spending much time sitting on the toilet, slept 5-3/4 hours previous evening. MENTAL STATUS EXAM: Oriented to himself, situation quite withdrawn, spends much time in his room in the toilet. Speech moderate latency, often responses monosyllabic, pleasant, smiling as I met with him. Abstraction fair, computation impaired, language function intact. Mood and affect remain somewhat depressed, anxious, withdrawn. LABORATORY DATA: Reviewed. IMPRESSION: Major depressive disorder with psychotic features; cognitive disorder, unspecified; anxiety disorder, unspecified. PLAN: Change Prozac to Luvox 25 mg at bedtime given his significant obsessiveness, maintain Risperdal 0.25 mg at bedtime, Namenda 10 b.i.d. Adjust further as clinically indicated. MAN Huan RINCON MD DR: SHAZIA/shanta JOB#: [id number] / [id number]
--- NOTE | 2018-02-19 02:47 | PDOC ---
Exam Note: Óscar Note: Please also refer to the separate dictated note~for this date of service dictated separately.~Patient seen individually. Discussed the patient with Nursing staff reviewed the chart.~Reviewed interim history and current functioning. Reviewed vital signs,~Labs/ Radiology~and current medications noted below. Continue current treatment with the changes noted in the dictated addendum note Assessment: Vital Signs: Vital Signs Date Time Temp Pulse Resp B/P (MAP) Pulse Ox O2 Delivery O2 Flow Rate FiO2 02/18/18 20:05 61 106/66 02/18/18 16:12 98.4 18 96 02/17/18 16:10 Room Air I&O Intake and Output 02/19/18 07:00 Intake Total 480 ml Balance 480 ml Intake Oral 480 ml # Voids 2 Current Medications: Meds: Current Medications Acetaminophen (Tylenol) 650 mg PRN Q6HRS PRN PO PAIN / TEMP; Start 02/12/18 at 11:15 Multi-Ingredient Ointment (Analgesic [place]) 1 nicole PRN QID PRN TP MUSCLE PAIN; Start 02/12/18 at 11:15 Al Hydroxide/Mg Hydroxide (Mylanta Plus Xs) 15 ml PRN AFTMEALHC PRN PO DYSPEPSIA; Start 02/12/18 at 11:15 Magnesium Hydroxide (Milk Of Magnesia) 2,400 mg PRN QHS PRN PO CONSTIPATION; Start 02/12/18 at 11:15 Acetaminophen (Tylenol) 650 mg PRN Q6HRS PRN PO PAIN; Start 02/12/18 at 12:00; Status Cancel Metoprolol Tartrate (Lopressor) 25 mg BID PO Last administered on 02/18/18at 20: 04; Start 02/12/18 at 21:00 Tamsulosin HCl (Flomax) 0.4 mg HS PO Last administered on 02/18/18at 20:04; Start 02/12/18 at 21:00 Aspirin (Children'S Aspirin) 81 mg DAILYWBKFT PO Last administered on at 08:07; Start 02/13/18 at 08:00 Docusate Sodium (Colace) 100 mg BID PO Last administered on 02/18/18at 20:04; Start 02/12/18 at 21:00 Flecainide Acetate (Tambocor) 50 mg BID PO Last administered on 02/18/18 20:05 ; Start 02/12/18 at 21:00 Memantine (Namenda) 10 mg BID PO Last administered on 02/18/18 20:05; Start at 21:00 Ketotifen Fumarate (Zaditor) 1 drop BID OU Last administered on 02/18/18 20:04 ; Start 02/12/18 at 21:00 Potassium Chloride (Klor-Con) 20 meq DAILYWBKFT PO Last administered on at 08:06; Start 02/13/18 at 08:00 [place]/ Glycerin (A.e.r Pads) 1 each PRN BID PRN TP hemorrhoids Last administered on 02/15/18 10:00; Start 02/12/18 at 12:00 Lactulose (Lactulose) 10 gm TID PRN PO CONSTIPATION; Start 02/12/18 at 12:00 Fluoxetine HCl (PROzac) 10 mg DAILY PO Last administered on 02/16/18at 09:08; Start 02/14/18 at 09:00; Stop 02/16/18 at 13:50; Status DC Risperidone (RisperDAL) 0.25 mg HS SL Last administered on 02/18/18 20:05; Start 02/13/18 at 22:30 Vitamin D (Vitamin D3) 50,000 unit WEEKLY PO Last administered on 02/14/18at 15: 42; Start 02/14/18 at 13:30 Phenylephrine/ Shark Liver Oil (Preparation H) 1 supp PRN Q8HRS PRN [place] RECTAL PAIN Last administered on 02/15/18at 17:28; Start 02/15/18 at 14:45 Fluvoxamine Maleate (Luvox) 25 mg DAILY PO Last administered on 02/18/18 08:05 ; Start 02/17/18 at 09:00; Stop 02/18/18 at 16:17; Status DC Fluvoxamine Maleate (Luvox) 50 mg DAILY PO ; Start 02/19/18 at 09:00 Active Scripts Active Flecainide Acetate 100 Mg Tablet 50 Mg PO Q12HR 90 Days Reported Tucks (Witch Dorothy) 1 Each Med..pad 1 Each TP PRN BID PRN Pataday (Olopatadine Hcl) 2.5 Ml Drops 1 Drop EACHEYE BID Metoprolol Tartrate 25 Mg Tablet 25 Mg PO BID Lactulose 10 Gm/15 Ml Solution 10 Gm PO Flecainide Acetate 50 Mg Tablet 50 Mg PO BID Aspirin 81 Mg Tab.chew 81 Mg PO DAILY Risperdal (Risperidone) 0.5 Mg Tablet 0.5 Mg SL QHS Coreg (Carvedilol) 3.125 Mg Tablet 3.125 Mg PO BIDWMEALS Olanzapine 5 Mg Tablet 1.25 Mg PO PRN PRN MDD 5mg/24hrs Namenda (Memantine Hcl) 10 Mg Tablet 10 Mg PO BID Prozac (Fluoxetine Hcl) 40 Mg Capsule 40 Mg PO DAILY Flomax (Tamsulosin Hcl) 0.4 Mg Cap.er.24h 4.6 Mg PO HS Zaditor (Ketotifen Fumarate) 5 Ml Drops 1 Drop EACHEYE BID Vitamin D3 (Cholecalciferol (Vitamin D3)) 5,000 Unit Tablet 50,000 Unit PO WEEKLY FRIDAY Tylenol (Acetaminophen) 325 Mg Tablet 650 Mg PO PRN Q6HRS PRN Colace (Docusate Sodium) 100 Mg Capsule 1 Cap PO BID Potassium Chloride Oral Liquid (Potassium Chloride) 20 Meq/15 Ml Liquid 20 Meq PO DAILY LAST DOSE GIVEN: DATE: TIME: NEXT DOSE DUE: DATE: TIME: I have reviewed the current psychotropics carefully including drug interactions. Risk benefit ratio favors no change other than as noted in my dictated progress note. Diagnosis: Problems: (1) Anxiety disorder (2) Mild cognitive disorder (3) Impulse control disorder (4) Major depressive disorder, recurrent episode (5) Syncopal episodes (6) Weakness (7) PSVT (paroxysmal supraventricular tachycardia) (8) Cardiac syncope (9) Suicidal ideation CHELSEA RINCON MD Feb 19, 2018 02:46
[2018-02-19 06:20] VITALS: BP 128/74
[2018-02-19] MEDS: ASPIRIN 81 MG TAB.CHEW PO SCH (07:30)
[2018-02-19] MEDS: KETOTIFEN FUMARATE 0.025% OPHT SOLUTION BOTTLE. OU SCH ×2 (07:31→20:03)
[2018-02-19] MEDS: FLECAINIDE 50 MG TABLET. PO SCH ×2 (07:31→20:04)
[2018-02-19] MEDS: POTASSIUM CHLORIDE 20 MEQ TABLET.ER. PO SCH (07:31)
[2018-02-19] MEDS: DOCUSATE SODIUM 100 MG CAPSULE PO SCH ×2 (07:31→20:03)
[2018-02-19] MEDS: MEMANTINE 10 MG TABLET. PO SCH ×2 (07:32→20:04)
[2018-02-19] MEDS: METOPROLOL TART IMMED RELEASE 25 MG TABLET PO SCH ×2 (07:33→20:04)
[2018-02-19 15:58] VITALS: BP 109/71
[2018-02-19] MEDS: TAMSULOSIN 0.4 MG CAP.ER.24H. PO SCH (20:03)
[2018-02-19] MEDS: risperiDONE ORAL 1 MG/ML 30ml BOTTLE. SL SCH (20:04)
--- NOTE | 2018-02-19 20:14 | PDOC ---
Exam Note: Óscar Note: Please also refer to the separate dictated note~for this date of service dictated separately.~Patient seen individually. Discussed the patient with Nursing staff reviewed the chart.~Reviewed interim history and current functioning. Reviewed vital signs,~Labs/ Radiology~and current medications noted below. Continue current treatment with the changes noted in the dictated addendum note Assessment: Vital Signs: Vital Signs Date Time Temp Pulse Resp B/P (MAP) Pulse Ox O2 Delivery O2 Flow Rate FiO2 02/19/18 20:04 73 109/71 02/19/18 15:58 97.7 16 97 Room Air I&O Intake and Output 02/19/18 06:59 Intake Total 480 ml Balance 480 ml Intake Oral 480 ml # Voids 2 Current Medications: Meds: Current Medications Acetaminophen (Tylenol) 650 mg PRN Q6HRS PRN PO PAIN / TEMP; Start 02/12/18 at 11:15 Multi-Ingredient Ointment (Analgesic [place]) 1 nicole PRN QID PRN TP MUSCLE PAIN; Start 02/12/18 at 11:15 Al Hydroxide/Mg Hydroxide (Mylanta Plus Xs) 15 ml PRN AFTMEALHC PRN PO DYSPEPSIA; Start 02/12/18 at 11:15 Magnesium Hydroxide (Milk Of Magnesia) 2,400 mg PRN QHS PRN PO CONSTIPATION; Start 02/12/18 at 11:15 Acetaminophen (Tylenol) 650 mg PRN Q6HRS PRN PO PAIN; Start 02/12/18 at 12:00; Status Cancel Metoprolol Tartrate (Lopressor) 25 mg BID PO Last administered on 02/19/18at 20: 04; Start 02/12/18 at 21:00 Tamsulosin HCl (Flomax) 0.4 mg HS PO Last administered on 02/19/18at 20:03; Start 02/12/18 at 21:00 Aspirin (Children'S Aspirin) 81 mg DAILYWBKFT PO Last administered on at 07:30; Start 02/13/18 at 08:00 Docusate Sodium (Colace) 100 mg BID PO Last administered on 02/19/18at 20:03; Start 02/12/18 at 21:00 Flecainide Acetate (Tambocor) 50 mg BID PO Last administered on 02/19/18at 20:04 ; Start 02/12/18 at 21:00 Memantine (Namenda) 10 mg BID PO Last administered on 02/19/18at 20:04; Start at 21:00 Ketotifen Fumarate (Zaditor) 1 drop BID OU Last administered on 02/19/18at 20:03 ; Start 02/12/18 at 21:00 Potassium Chloride (Klor-Con) 20 meq DAILYWBKFT PO Last administered on at 07:31; Start 02/13/18 at 08:00 Witch Dorothy/ Glycerin (A.e.r Pads) 1 each PRN BID PRN TP hemorrhoids Last administered on 02/15/18at 10:00; Start 02/12/18 at 12:00 Lactulose (Lactulose) 10 gm TID PRN PO CONSTIPATION; Start 02/12/18 at 12:00 Fluoxetine HCl (PROzac) 10 mg DAILY PO Last administered on 02/16/18at 09:08; Start 02/14/18 at 09:00; Stop 02/16/18 at 13:50; Status DC Risperidone (RisperDAL) 0.25 mg HS SL Last administered on 02/19/18at 20:04; Start 02/13/18 at 22:30 Vitamin D (Vitamin D3) 50,000 unit WEEKLY PO Last administered on 02/14/18at 15: 42; Start 02/14/18 at 13:30 Phenylephrine/ Shark Liver Oil (Preparation H) 1 supp PRN Q8HRS PRN [place] RECTAL PAIN Last administered on 02/15/18at 17:28; Start 02/15/18 at 14:45 Fluvoxamine Maleate (Luvox) 25 mg DAILY PO Last administered on 02/18/18at 08:05 ; Start 02/17/18 at 09:00; Stop 02/18/18 at 16:17; Status DC Fluvoxamine Maleate (Luvox) 50 mg DAILY PO Last administered on 02/19/18at 07:33 ; Start 02/19/18 at 09:00 Active Scripts Active Flecainide Acetate 100 Mg Tablet 50 Mg PO Q12HR 90 Days Reported Tucks (Witch Dorothy) 1 Each Med..pad 1 Each TP PRN BID PRN Pataday (Olopatadine Hcl) 2.5 Ml Drops 1 Drop EACHEYE BID Metoprolol Tartrate 25 Mg Tablet 25 Mg PO BID Lactulose 10 Gm/15 Ml Solution 10 Gm PO Flecainide Acetate 50 Mg Tablet 50 Mg PO BID Aspirin 81 Mg Tab.chew 81 Mg PO DAILY Risperdal (Risperidone) 0.5 Mg Tablet 0.5 Mg SL QHS Coreg (Carvedilol) 3.125 Mg Tablet 3.125 Mg PO BIDWMEALS Olanzapine 5 Mg Tablet 1.25 Mg PO PRN PRN MDD 5mg/24hrs Namenda (Memantine Hcl) 10 Mg Tablet 10 Mg PO BID Prozac (Fluoxetine Hcl) 40 Mg Capsule 40 Mg PO DAILY Flomax (Tamsulosin Hcl) 0.4 Mg Cap.er.24h 4.6 Mg PO HS Zaditor (Ketotifen Fumarate) 5 Ml Drops 1 Drop EACHEYE BID Vitamin D3 (Cholecalciferol (Vitamin D3)) 5,000 Unit Tablet 50,000 Unit PO WEEKLY FRIDAY Tylenol (Acetaminophen) 325 Mg Tablet 650 Mg PO PRN Q6HRS PRN Colace (Docusate Sodium) 100 Mg Capsule 1 Cap PO BID Potassium Chloride Oral Liquid (Potassium Chloride) 20 Meq/15 Ml Liquid 20 Meq PO DAILY LAST DOSE GIVEN: DATE: TIME: NEXT DOSE DUE: DATE: TIME: I have reviewed the current psychotropics carefully including drug interactions. Risk benefit ratio favors no change other than as noted in my dictated progress note. Diagnosis: Problems: (1) Anxiety disorder (2) Mild cognitive disorder (3) Impulse control disorder (4) Major depressive disorder, recurrent episode (5) Syncopal episodes (6) Weakness (7) PSVT (paroxysmal supraventricular tachycardia) (8) Cardiac syncope (9) Suicidal ideation CHELSEA RINCON MD Feb 19, 2018 20:14
--- NOTE | 2018-02-19 20:49 | PDOC ---
Exam Note: Óscar Note: Late entry for DOS February 17, 2018. Please also refer to the separate dictated note~for this date of service dictated separately.~Patient seen individually. Discussed the patient with Nursing staff reviewed the chart.~Reviewed interim history and current functioning. Reviewed vital signs,~Labs/ Radiology~and current medications noted below. Continue current treatment with the changes noted in the dictated addendum note Assessment: Vital Signs: VS - Last 72 Hours, by Label Date Time Temp Pulse Resp B/P (MAP) Pulse Ox O2 Delivery O2 Flow Rate FiO2 02/19/18 20:04 73 109/71 02/19/18 20:04 73 109/71 02/19/18 15:58 97.7 73 16 109/71 (84) 97 Room Air 02/19/18 07:33 54 128/74 02/19/18 07:31 54 128/74 02/19/18 06:20 97.3 54 18 128/74 (92) 96 02/18/18 20:05 61 106/66 02/18/18 20:04 61 106/66 02/18/18 16:12 98.4 57 18 106/66 (79) 96 02/18/18 08:05 57 117/61 02/18/18 08:05 57 117/61 02/18/18 05:39 98.0 57 16 117/61 (79) 90 02/17/18 21:04 58 130/70 02/17/18 21:03 58 130/70 02/17/18 16:10 98.2 58 16 130/70 (90) 94 Room Air 02/17/18 12:54 97.4 75 17 125/77 (93) 98 Room Air 02/17/18 12:36 75 125/77 02/17/18 07:56 57 128/73 02/17/18 06:11 98.6 57 18 128/73 (91) 99 Vital Signs Date Time Temp Pulse Resp B/P (MAP) Pulse Ox O2 Delivery O2 Flow Rate FiO2 02/19/18 20:04 73 109/71 02/19/18 15:58 97.7 16 97 Room Air I&O Intake and Output 02/19/18 06:59 Intake Total 480 ml Balance 480 ml Intake Oral 480 ml # Voids 2 Current Medications: Meds: Current Medications Acetaminophen (Tylenol) 650 mg PRN Q6HRS PRN PO PAIN / TEMP; Start 02/12/18 at 11:15 Multi-Ingredient Ointment (Analgesic [place]) 1 nicole PRN QID PRN TP MUSCLE PAIN; Start 02/12/18 at 11:15 Al Hydroxide/Mg Hydroxide (Mylanta Plus Xs) 15 ml PRN AFTMEALHC PRN PO DYSPEPSIA; Start 02/12/18 at 11:15 Magnesium Hydroxide (Milk Of Magnesia) 2,400 mg PRN QHS PRN PO CONSTIPATION; Start 02/12/18 at 11:15 Acetaminophen (Tylenol) 650 mg PRN Q6HRS PRN PO PAIN; Start 02/12/18 at 12:00; Status Cancel Metoprolol Tartrate (Lopressor) 25 mg BID PO Last administered on 02/19/18at 20: 04; Start 02/12/18 at 21:00 Tamsulosin HCl (Flomax) 0.4 mg HS PO Last administered on 02/19/18at 20:03; Start 02/12/18 at 21:00 Aspirin (Children'S Aspirin) 81 mg DAILYWBKFT PO Last administered on at 07:30; Start 02/13/18 at 08:00 Docusate Sodium (Colace) 100 mg BID PO Last administered on 02/19/18 20:03; Start 02/12/18 at 21:00 Flecainide Acetate (Tambocor) 50 mg BID PO Last administered on 02/19/18 20:04 ; Start 02/12/18 at 21:00 Memantine (Namenda) 10 mg BID PO Last administered on 02/19/18at 20:04; Start at 21:00 Ketotifen Fumarate (Zaditor) 1 drop BID OU Last administered on 02/19/18 20:03 ; Start 02/12/18 at 21:00 Potassium Chloride (Klor-Con) 20 meq DAILYWBKFT PO Last administered on at 07:31; Start 02/13/18 at 08:00 Witch Dorothy/ Glycerin (A.e.r Pads) 1 each PRN BID PRN TP hemorrhoids Last administered on 02/15/18at 10:00; Start 02/12/18 at 12:00 Lactulose (Lactulose) 10 gm TID PRN PO CONSTIPATION; Start 02/12/18 at 12:00 Fluoxetine HCl (PROzac) 10 mg DAILY PO Last administered on 02/16/18at 09:08; Start 02/14/18 at 09:00; Stop 02/16/18 at 13:50; Status DC Risperidone (RisperDAL) 0.25 mg HS SL Last administered on 02/19/18at 20:04; Start 02/13/18 at 22:30 Vitamin D (Vitamin D3) 50,000 unit WEEKLY PO Last administered on 02/14/18at 15: 42; Start 02/14/18 at 13:30 Phenylephrine/ Shark Liver Oil (Preparation H) 1 supp PRN Q8HRS PRN [place] RECTAL PAIN Last administered on 02/15/18at 17:28; Start 02/15/18 at 14:45 Fluvoxamine Maleate (Luvox) 25 mg DAILY PO Last administered on 02/18/18at 08:05 ; Start 02/17/18 at 09:00; Stop 02/18/18 at 16:17; Status DC Fluvoxamine Maleate (Luvox) 50 mg DAILY PO Last administered on 02/19/18at 07:33 ; Start 02/19/18 at 09:00 Active Scripts Active Flecainide Acetate 100 Mg Tablet 50 Mg PO Q12HR 90 Days Reported [place] (Jose L De La Cruz) 1 Each Med..pad 1 Each TP PRN BID PRN Pataday (Olopatadine Hcl) 2.5 Ml Drops 1 Drop EACHEYE BID Metoprolol Tartrate 25 Mg Tablet 25 Mg PO BID Lactulose 10 Gm/15 Ml Solution 10 Gm PO Flecainide Acetate 50 Mg Tablet 50 Mg PO BID Aspirin 81 Mg Tab.chew 81 Mg PO DAILY Risperdal (Risperidone) 0.5 Mg Tablet 0.5 Mg SL QHS Coreg (Carvedilol) 3.125 Mg Tablet 3.125 Mg PO BIDWMEALS Olanzapine 5 Mg Tablet 1.25 Mg PO PRN PRN MDD 5mg/24hrs Namenda (Memantine Hcl) 10 Mg Tablet 10 Mg PO BID Prozac (Fluoxetine Hcl) 40 Mg Capsule 40 Mg PO DAILY Flomax (Tamsulosin Hcl) 0.4 Mg Cap.er.24h 4.6 Mg PO HS Zaditor (Ketotifen Fumarate) 5 Ml Drops 1 Drop EACHEYE BID Vitamin D3 (Cholecalciferol (Vitamin D3)) 5,000 Unit Tablet 50,000 Unit PO WEEKLY FRIDAY Tylenol (Acetaminophen) 325 Mg Tablet 650 Mg PO PRN Q6HRS PRN Colace (Docusate Sodium) 100 Mg Capsule 1 Cap PO BID Potassium Chloride Oral Liquid (Potassium Chloride) 20 Meq/15 Ml Liquid 20 Meq PO DAILY LAST DOSE GIVEN: DATE: TIME: NEXT DOSE DUE: DATE: TIME: I have reviewed the current psychotropics carefully including drug interactions. Risk benefit ratio favors no change other than as noted in my dictated progress note. Diagnosis: Problems: (1) Anxiety disorder (2) Mild cognitive disorder (3) Impulse control disorder (4) Major depressive disorder, recurrent episode (5) Syncopal episodes (6) Weakness (7) PSVT (paroxysmal supraventricular tachycardia) (8) Cardiac syncope (9) Suicidal ideation CHELSEA RINCON MD Feb 19, 2018 20:49
--- NOTE | 2018-02-19 22:05 | PN ---
DATE: 02/18/2018 PSYCHIATRIC PROGRESS NOTE This is a late entry 02/18/2018, covers elements not covered in my initial note. SUBJECTIVE: I met with the patient in the evening. The patient slept 6 hours previous evening. He remains withdrawn, spends much time in his room and locked more time on the toilet. He is obsessed, sitting on the toilet, resents being called out. REVIEW OF SYSTEMS: No CV, , pulmonary, eye, ENT system symptoms on review. MENTAL STATUS EXAM: Oriented to himself and situation. Speech moderate latency, often responses monosyllabic. Abstraction fair, computation impaired, language function intact, attention span short. Mood and affect somewhat withdrawn, obsessive, anxious. LABORATORY DATA: Reviewed. IMPRESSION: Major depressive disorder, mild cognitive impairment. PLAN: Increase Luvox to 50 mg a day. Rest unchanged from initial note. MAN Huan RINCON MD DR: SHAZIA/shanta JOB#: [id number] / [id number]
--- NOTE | 2018-02-20 01:18 | PDOC ---
Exam Note: Óscar Note: Please also refer to the separate dictated note~for this date of service dictated separately.~Patient seen individually. Discussed the patient with Nursing staff reviewed the chart.~Reviewed interim history and current functioning. Reviewed vital signs,~Labs/ Radiology~and current medications noted below. Continue current treatment with the changes noted in the dictated addendum note Assessment: Vital Signs: Vital Signs Date Time Temp Pulse Resp B/P (MAP) Pulse Ox O2 Delivery O2 Flow Rate FiO2 02/19/18 20:04 73 109/71 02/19/18 15:58 97.7 16 97 Room Air I&O Intake and Output 02/20/18 07:00 Intake Total 690 ml Balance 690 ml Intake Oral 690 ml # Voids 2 # Bowel Movements 1 Current Medications: Meds: Current Medications Acetaminophen (Tylenol) 650 mg PRN Q6HRS PRN PO PAIN / TEMP; Start 02/12/18 at 11:15 Multi-Ingredient Ointment (Analgesic [place]) 1 nicole PRN QID PRN TP MUSCLE PAIN; Start 02/12/18 at 11:15 Al Hydroxide/Mg Hydroxide (Mylanta Plus Xs) 15 ml PRN AFTMEALHC PRN PO DYSPEPSIA; Start 02/12/18 at 11:15 Magnesium Hydroxide (Milk Of Magnesia) 2,400 mg PRN QHS PRN PO CONSTIPATION; Start 02/12/18 at 11:15 Acetaminophen (Tylenol) 650 mg PRN Q6HRS PRN PO PAIN; Start 02/12/18 at 12:00; Status Cancel Metoprolol Tartrate (Lopressor) 25 mg BID PO Last administered on 02/19/18at 20: 04; Start 02/12/18 at 21:00 Tamsulosin HCl (Flomax) 0.4 mg HS PO Last administered on 02/19/18at 20:03; Start 02/12/18 at 21:00 Aspirin (Children'S Aspirin) 81 mg DAILYWBKFT PO Last administered on at 07:30; Start 02/13/18 at 08:00 Docusate Sodium (Colace) 100 mg BID PO Last administered on 02/19/18at 20:03; Start 02/12/18 at 21:00 Flecainide Acetate (Tambocor) 50 mg BID PO Last administered on 02/19/18at 20:04 ; Start 02/12/18 at 21:00 Memantine (Namenda) 10 mg BID PO Last administered on 02/19/18 20:04; Start at 21:00 Ketotifen Fumarate (Zaditor) 1 drop BID OU Last administered on 02/19/18 20:03 ; Start 02/12/18 at 21:00 Potassium Chloride (Klor-Con) 20 meq DAILYWBKFT PO Last administered on at 07:31; Start 02/13/18 at 08:00 [place]/ Glycerin (A.e.r Pads) 1 each PRN BID PRN TP hemorrhoids Last administered on 02/15/18at 10:00; Start 02/12/18 at 12:00 Lactulose (Lactulose) 10 gm TID PRN PO CONSTIPATION; Start 02/12/18 at 12:00 Fluoxetine HCl (PROzac) 10 mg DAILY PO Last administered on 02/16/18at 09:08; Start 02/14/18 at 09:00; Stop 02/16/18 at 13:50; Status DC Risperidone (RisperDAL) 0.25 mg HS SL Last administered on 02/19/18at 20:04; Start 02/13/18 at 22:30 Vitamin D (Vitamin D3) 50,000 unit WEEKLY PO Last administered on 02/14/18at 15: 42; Start 02/14/18 at 13:30 Phenylephrine/ Shark Liver Oil (Preparation H) 1 supp PRN Q8HRS PRN [place] RECTAL PAIN Last administered on 02/15/18at 17:28; Start 02/15/18 at 14:45 Fluvoxamine Maleate (Luvox) 25 mg DAILY PO Last administered on 02/18/18 08:05 ; Start 02/17/18 at 09:00; Stop 02/18/18 at 16:17; Status DC Fluvoxamine Maleate (Luvox) 50 mg DAILY PO Last administered on 02/19/18at 07:33 ; Start 02/19/18 at 09:00 Active Scripts Active Flecainide Acetate 100 Mg Tablet 50 Mg PO Q12HR 90 Days Reported Tucks (Witch Dorothy) 1 Each Med..pad 1 Each TP PRN BID PRN Pataday (Olopatadine Hcl) 2.5 Ml Drops 1 Drop EACHEYE BID Metoprolol Tartrate 25 Mg Tablet 25 Mg PO BID Lactulose 10 Gm/15 Ml Solution 10 Gm PO Flecainide Acetate 50 Mg Tablet 50 Mg PO BID Aspirin 81 Mg Tab.chew 81 Mg PO DAILY Risperdal (Risperidone) 0.5 Mg Tablet 0.5 Mg SL QHS Coreg (Carvedilol) 3.125 Mg Tablet 3.125 Mg PO BIDWMEALS Olanzapine 5 Mg Tablet 1.25 Mg PO PRN PRN MDD 5mg/24hrs Namenda (Memantine Hcl) 10 Mg Tablet 10 Mg PO BID Prozac (Fluoxetine Hcl) 40 Mg Capsule 40 Mg PO DAILY Flomax (Tamsulosin Hcl) 0.4 Mg Cap.er.24h 4.6 Mg PO HS Zaditor (Ketotifen Fumarate) 5 Ml Drops 1 Drop EACHEYE BID Vitamin D3 (Cholecalciferol (Vitamin D3)) 5,000 Unit Tablet 50,000 Unit PO WEEKLY FRIDAY Tylenol (Acetaminophen) 325 Mg Tablet 650 Mg PO PRN Q6HRS PRN Colace (Docusate Sodium) 100 Mg Capsule 1 Cap PO BID Potassium Chloride Oral Liquid (Potassium Chloride) 20 Meq/15 Ml Liquid 20 Meq PO DAILY LAST DOSE GIVEN: DATE: TIME: NEXT DOSE DUE: DATE: TIME: I have reviewed the current psychotropics carefully including drug interactions. Risk benefit ratio favors no change other than as noted in my dictated progress note. Diagnosis: Problems: (1) Anxiety disorder (2) Mild cognitive disorder (3) Impulse control disorder (4) Major depressive disorder, recurrent episode (5) Syncopal episodes (6) Weakness (7) PSVT (paroxysmal supraventricular tachycardia) (8) Cardiac syncope (9) Suicidal ideation CHELSEA RINCON MD Feb 20, 2018 01:17
[2018-02-20 05:54] VITALS: BP 121/69
[2018-02-20] MEDS: DOCUSATE SODIUM 100 MG CAPSULE PO SCH ×2 (08:14→20:56)
[2018-02-20] MEDS: POTASSIUM CHLORIDE 20 MEQ TABLET.ER. PO SCH (08:15)
[2018-02-20] MEDS: ASPIRIN 81 MG TAB.CHEW PO SCH (08:15)
[2018-02-20] MEDS: METOPROLOL TART IMMED RELEASE 25 MG TABLET PO SCH ×2 (08:15→21:00)
[2018-02-20] MEDS: MEMANTINE 10 MG TABLET. PO SCH ×2 (08:16→21:00)
[2018-02-20] MEDS: FLECAINIDE 50 MG TABLET. PO SCH ×2 (08:16→21:00)
[2018-02-20] MEDS: KETOTIFEN FUMARATE 0.025% OPHT SOLUTION BOTTLE. OU SCH ×2 (08:19→20:56)
--- NOTE | 2018-02-20 12:39 | PN ---
DATE: 02/19/2018 PSYCHIATRIC PROGRESS NOTE This is a late entry, 02/19, covers elements not covered in my initial note. SUBJECTIVE: I met with the patient in the evening, staffed at treatment team meeting with the entire team in the morning. I reviewed the patient's history, diagnosis, progress. The patient remains somewhat withdrawn, isolative, obsessive about the toilet, but this is little better since we have initiated Luvox. REVIEW OF SYSTEMS: No CV, , pulmonary, eye, ENT system symptoms on review. MENTAL STATUS EXAM: Oriented to himself and situation. Speech moderate latency, coherent. Abstraction fair, computation impaired, language function intact, attention span short. Mood and affect somewhat withdrawn. LABORATORY DATA: Reviewed. IMPRESSION: Major depressive disorder with psychotic features; obsessive-compulsive disorder; anxiety disorder, unspecified. PLAN: Continue psychotropics from initial note, may need to increase Luvox further gradually. CHELSEA RINCON MD DR: SHAZIA/shanta JOB#: [id number] / [id number]
[2018-02-20 15:53] VITALS: BP 133/68
--- NOTE | 2018-02-20 20:21 | PDOC ---
Exam Note: Óscar Note: Please also refer to the separate dictated note~for this date of service dictated separately.~Patient seen individually. Discussed the patient with Nursing staff reviewed the chart.~Reviewed interim history and current functioning. Reviewed vital signs,~Labs/ Radiology~and current medications noted below. Continue current treatment with the changes noted in the dictated addendum note Assessment: Vital Signs: Vital Signs Date Time Temp Pulse Resp B/P (MAP) Pulse Ox O2 Delivery O2 Flow Rate FiO2 02/20/18 15:53 97.1 57 16 133/68 (89) 94 Room Air I&O Intake and Output 02/20/18 06:59 Intake Total 690 ml Balance 690 ml Intake Oral 690 ml # Voids 2 # Bowel Movements 1 Current Medications: Meds: Current Medications Acetaminophen (Tylenol) 650 mg PRN Q6HRS PRN PO PAIN / TEMP; Start 02/12/18 at 11:15 Multi-Ingredient Ointment (Analgesic [place]) 1 nicole PRN QID PRN TP MUSCLE PAIN; Start 02/12/18 at 11:15 Al Hydroxide/Mg Hydroxide (Mylanta Plus Xs) 15 ml PRN AFTMEALHC PRN PO DYSPEPSIA; Start 02/12/18 at 11:15 Magnesium Hydroxide (Milk Of Magnesia) 2,400 mg PRN QHS PRN PO CONSTIPATION; Start 02/12/18 at 11:15 Acetaminophen (Tylenol) 650 mg PRN Q6HRS PRN PO PAIN; Start 02/12/18 at 12:00; Status Cancel Metoprolol Tartrate (Lopressor) 25 mg BID PO Last administered on 02/20/18at 08: 15; Start 02/12/18 at 21:00 Tamsulosin HCl (Flomax) 0.4 mg HS PO Last administered on 02/19/18at 20:03; Start 02/12/18 at 21:00 Aspirin (Children'S Aspirin) 81 mg DAILYWBKFT PO Last administered on at 08:15; Start 02/13/18 at 08:00 Docusate Sodium (Colace) 100 mg BID PO Last administered on 02/20/18at 08:14; Start 02/12/18 at 21:00 Flecainide Acetate (Tambocor) 50 mg BID PO Last administered on 02/20/18at 08:16 ; Start 02/12/18 at 21:00 Memantine (Namenda) 10 mg BID PO Last administered on 02/20/18at 08:16; Start at 21:00 Ketotifen Fumarate (Zaditor) 1 drop BID OU Last administered on 02/20/18at 08:19 ; Start 02/12/18 at 21:00 Potassium Chloride (Klor-Con) 20 meq DAILYWBKFT PO Last administered on at 08:15; Start 02/13/18 at 08:00 [place]/ Glycerin (A.e.r Pads) 1 each PRN BID PRN TP hemorrhoids Last administered on 02/15/18at 10:00; Start 02/12/18 at 12:00 Lactulose (Lactulose) 10 gm TID PRN PO CONSTIPATION; Start 02/12/18 at 12:00 Fluoxetine HCl (PROzac) 10 mg DAILY PO Last administered on 02/16/18at 09:08; Start 02/14/18 at 09:00; Stop 02/16/18 at 13:50; Status DC Risperidone (RisperDAL) 0.25 mg HS SL Last administered on 02/19/18at 20:04; Start 02/13/18 at 22:30 Vitamin D (Vitamin D3) 50,000 unit WEEKLY PO Last administered on 02/14/18at 15: 42; Start 02/14/18 at 13:30 Phenylephrine/ Shark Liver Oil (Preparation H) [address] RECTAL PAIN Last administered on 02/15/18at 17:28; Start 02/15/18 at 14:45 Fluvoxamine Maleate (Luvox) 25 mg DAILY PO Last administered on 02/18/18at 08:05 ; Start 02/17/18 at 09:00; Stop 02/18/18 at 16:17; Status DC Fluvoxamine Maleate (Luvox) 50 mg DAILY PO Last administered on 02/20/18at 08:15 ; Start 02/19/18 at 09:00; Stop 02/21/18 at 12:00 Fluvoxamine Maleate (Luvox) 75 mg DAILY PO ; Start 02/21/18 at 09:00 Active Scripts Active Flecainide Acetate 100 Mg Tablet 50 Mg PO Q12HR 90 Days Reported [place] (Jose L De La Cruz) 1 Each Med..pad 1 Each TP PRN BID PRN Pataday (Olopatadine Hcl) 2.5 Ml Drops 1 Drop EACHEYE BID Metoprolol Tartrate 25 Mg Tablet 25 Mg PO BID Lactulose 10 Gm/15 Ml Solution 10 Gm PO Flecainide Acetate 50 Mg Tablet 50 Mg PO BID Aspirin 81 Mg Tab.chew 81 Mg PO DAILY Risperdal (Risperidone) 0.5 Mg Tablet 0.5 Mg SL QHS Coreg (Carvedilol) 3.125 Mg Tablet 3.125 Mg PO BIDWMEALS Olanzapine 5 Mg Tablet 1.25 Mg PO PRN PRN MDD 5mg/24hrs Namenda (Memantine Hcl) 10 Mg Tablet 10 Mg PO BID Prozac (Fluoxetine Hcl) 40 Mg Capsule 40 Mg PO DAILY Flomax (Tamsulosin Hcl) 0.4 Mg Cap.er.24h 4.6 Mg PO HS Zaditor (Ketotifen Fumarate) 5 Ml Drops 1 Drop EACHEYE BID Vitamin D3 (Cholecalciferol (Vitamin D3)) 5,000 Unit Tablet 50,000 Unit PO WEEKLY FRIDAY Tylenol (Acetaminophen) 325 Mg Tablet 650 Mg PO PRN Q6HRS PRN Colace (Docusate Sodium) 100 Mg Capsule 1 Cap PO BID Potassium Chloride Oral Liquid (Potassium Chloride) 20 Meq/15 Ml Liquid 20 Meq PO DAILY LAST DOSE GIVEN: DATE: TIME: NEXT DOSE DUE: DATE: TIME: I have reviewed the current psychotropics carefully including drug interactions. Risk benefit ratio favors no change other than as noted in my dictated progress note. Diagnosis: Problems: (1) Anxiety disorder (2) Mild cognitive disorder (3) Impulse control disorder (4) Major depressive disorder, recurrent episode (5) Syncopal episodes (6) Weakness (7) PSVT (paroxysmal supraventricular tachycardia) (8) Cardiac syncope (9) Suicidal ideation CHELSEA RINCON MD Feb 20, 2018 20:21
[2018-02-20] MEDS: TAMSULOSIN 0.4 MG CAP.ER.24H. PO SCH (20:56)
[2018-02-20] MEDS: risperiDONE ORAL 1 MG/ML 30ml BOTTLE. SL SCH (20:57)
[2018-02-21 05:54] VITALS: BP 143/83
[2018-02-21] MEDS: POTASSIUM CHLORIDE 20 MEQ TABLET.ER. PO SCH ×2 (08:00→08:11)
[2018-02-21] MEDS: ASPIRIN 81 MG TAB.CHEW PO SCH (08:11)
[2018-02-21] MEDS: CHOLECALCIFEROL (VITAMIN D3) 50,000 UNIT CAPSULE PO SCH (08:12)
[2018-02-21] MEDS: MEMANTINE 10 MG TABLET. PO SCH ×2 (08:12→20:38)
[2018-02-21] MEDS: METOPROLOL TART IMMED RELEASE 25 MG TABLET PO SCH ×2 (08:12→20:38)
[2018-02-21] MEDS: FLECAINIDE 50 MG TABLET. PO SCH ×2 (08:12→20:39)
[2018-02-21] MEDS: DOCUSATE SODIUM 100 MG CAPSULE PO SCH ×2 (08:12→20:38)
[2018-02-21] MEDS: KETOTIFEN FUMARATE 0.025% OPHT SOLUTION BOTTLE. OU SCH ×3 (08:15→20:40)
[2018-02-21 16:24] VITALS: BP 121/71
[2018-02-21] MEDS: LACTULOSE 20 GM/30 ML SOLUTION. PO PRN (20:37)
[2018-02-21] MEDS: TAMSULOSIN 0.4 MG CAP.ER.24H. PO SCH (20:38)
[2018-02-21] MEDS: risperiDONE ORAL 1 MG/ML 30ml BOTTLE. SL SCH (20:41)
--- NOTE | 2018-02-21 22:13 | PDOC ---
Exam Note: Óscar Note: Please also refer to the separate dictated note~for this date of service dictated separately.~Patient seen individually. Discussed the patient with Nursing staff reviewed the chart.~Reviewed interim history and current functioning. Reviewed vital signs,~Labs/ Radiology~and current medications noted below. Continue current treatment with the changes noted in the dictated addendum note Assessment: Vital Signs: Vital Signs Date Time Temp Pulse Resp B/P (MAP) Pulse Ox O2 Delivery O2 Flow Rate FiO2 02/21/18 20:39 53 121/71 02/21/18 16:24 98.0 16 95 02/20/18 15:53 Room Air I&O Intake and Output 02/21/18 07:01 Intake Total 600 ml Balance 600 ml Intake Oral 600 ml # Voids 2 Current Medications: Meds: Current Medications Acetaminophen (Tylenol) 650 mg PRN Q6HRS PRN PO PAIN / TEMP; Start 02/12/18 at 11:15 Multi-Ingredient Ointment (Analgesic [place]) 1 nicole PRN QID PRN TP MUSCLE PAIN; Start 02/12/18 at 11:15 Al Hydroxide/Mg Hydroxide (Mylanta Plus Xs) 15 ml PRN AFTMEALHC PRN PO DYSPEPSIA; Start 02/12/18 at 11:15 Magnesium Hydroxide (Milk Of Magnesia) 2,400 mg PRN QHS PRN PO CONSTIPATION; Start 02/12/18 at 11:15 Acetaminophen (Tylenol) 650 mg PRN Q6HRS PRN PO PAIN; Start 02/12/18 at 12:00; Status Cancel Metoprolol Tartrate (Lopressor) 25 mg BID PO Last administered on 02/21/18at 20: 38; Start 02/12/18 at 21:00 Tamsulosin HCl (Flomax) 0.4 mg HS PO Last administered on 02/21/18at 20:38; Start 02/12/18 at 21:00 Aspirin (Children'S Aspirin) 81 mg DAILYWBKFT PO Last administered on at 08:11; Start 02/13/18 at 08:00 Docusate Sodium (Colace) 100 mg BID PO Last administered on 02/21/18at 20:38; Start 02/12/18 at 21:00 Flecainide Acetate (Tambocor) 50 mg BID PO Last administered on 02/21/18 20:39 ; Start 02/12/18 at 21:00 Memantine (Namenda) 10 mg BID PO Last administered on 02/21/18 20:38; Start at 21:00 Ketotifen Fumarate (Zaditor) 1 drop BID OU Last administered on 02/21/18 20:40 ; Start 02/12/18 at 21:00 Potassium Chloride (Klor-Con) 20 meq DAILYWBKFT PO Last administered on 08:15; Start 02/13/18 at 08:00 Witch Dorothy/ Glycerin (A.e.r Pads) 1 each PRN BID PRN TP hemorrhoids Last administered on 02/15/18 10:00; Start 02/12/18 at 12:00 Lactulose (Lactulose) 10 gm TID PRN PO CONSTIPATION Last administered on 20:37; Start 02/12/18 at 12:00 Fluoxetine HCl (PROzac) 10 mg DAILY PO Last administered on 02/16/18at 09:08; Start 02/14/18 at 09:00; Stop 02/16/18 at 13:50; Status DC Risperidone (RisperDAL) 0.25 mg HS SL Last administered on 02/21/18 20:41; Start 02/13/18 at 22:30 Vitamin D (Vitamin D3) 50,000 unit WEEKLY PO Last administered on 02/21/18 08: 12; Start 02/14/18 at 13:30 Phenylephrine/ Shark Liver Oil (Preparation H) 1 supp PRN Q8HRS PRN [place] RECTAL PAIN Last administered on 02/15/18 17:28; Start 02/15/18 at 14:45 Fluvoxamine Maleate (Luvox) 25 mg DAILY PO Last administered on 02/18/18 08:05 ; Start 02/17/18 at 09:00; Stop 02/18/18 at 16:17; Status DC Fluvoxamine Maleate (Luvox) 50 mg DAILY PO Last administered on 02/21/18 08:12 ; Start 02/19/18 at 09:00; Stop 02/21/18 at 12:00; Status DC Fluvoxamine Maleate (Luvox) 75 mg DAILY PO ; Start 02/21/18 at 09:00 Active Scripts Active Flecainide Acetate 100 Mg Tablet 50 Mg PO Q12HR 90 Days Reported Tucks (Witch Dorothy) 1 Each Med..pad 1 Each TP PRN BID PRN Pataday (Olopatadine Hcl) 2.5 Ml Drops 1 Drop EACHEYE BID Metoprolol Tartrate 25 Mg Tablet 25 Mg PO BID Lactulose 10 Gm/15 Ml Solution 10 Gm PO Flecainide Acetate 50 Mg Tablet 50 Mg PO BID Aspirin 81 Mg Tab.chew 81 Mg PO DAILY Risperdal (Risperidone) 0.5 Mg Tablet 0.5 Mg SL QHS Coreg (Carvedilol) 3.125 Mg Tablet 3.125 Mg PO BIDWMEALS Olanzapine 5 Mg Tablet 1.25 Mg PO PRN PRN MDD 5mg/24hrs Namenda (Memantine Hcl) 10 Mg Tablet 10 Mg PO BID Prozac (Fluoxetine Hcl) 40 Mg Capsule 40 Mg PO DAILY Flomax (Tamsulosin Hcl) 0.4 Mg Cap.er.24h 4.6 Mg PO HS Zaditor (Ketotifen Fumarate) 5 Ml Drops 1 Drop EACHEYE BID Vitamin D3 (Cholecalciferol (Vitamin D3)) 5,000 Unit Tablet 50,000 Unit PO WEEKLY FRIDAY Tylenol (Acetaminophen) 325 Mg Tablet 650 Mg PO PRN Q6HRS PRN Colace (Docusate Sodium) 100 Mg Capsule 1 Cap PO BID Potassium Chloride Oral Liquid (Potassium Chloride) 20 Meq/15 Ml Liquid 20 Meq PO DAILY LAST DOSE GIVEN: DATE: TIME: NEXT DOSE DUE: DATE: TIME: I have reviewed the current psychotropics carefully including drug interactions. Risk benefit ratio favors no change other than as noted in my dictated progress note. Diagnosis: Problems: (1) Anxiety disorder (2) Mild cognitive disorder (3) Impulse control disorder (4) Major depressive disorder, recurrent episode (5) Syncopal episodes (6) Weakness (7) PSVT (paroxysmal supraventricular tachycardia) (8) Cardiac syncope (9) Suicidal ideation CHELSEA RINCON MD Feb 21, 2018 22:13
[2018-02-22 05:50] VITALS: BP 107/77
[2018-02-22] MEDS: FLECAINIDE 50 MG TABLET. PO SCH ×2 (08:05→20:42)
[2018-02-22] MEDS: MEMANTINE 10 MG TABLET. PO SCH ×2 (08:05→20:34)
[2018-02-22] MEDS: DOCUSATE SODIUM 100 MG CAPSULE PO SCH ×2 (08:05→20:34)
[2018-02-22] MEDS: ASPIRIN 81 MG TAB.CHEW PO SCH (08:05)
[2018-02-22] MEDS: POTASSIUM CHLORIDE 20 MEQ TABLET.ER. PO SCH (08:06)
[2018-02-22] MEDS: METOPROLOL TART IMMED RELEASE 25 MG TABLET PO SCH ×2 (08:06→20:34)
[2018-02-22] MEDS: KETOTIFEN FUMARATE 0.025% OPHT SOLUTION BOTTLE. OU SCH ×2 (08:07→20:34)
[2018-02-22 10:41] LABS: BASO % 0 % (0-3); EOS # 0.1 x10^3/uL (0.0-0.7); EOS % 1 % (0-3); HEMATOCRIT 41.4 % (39.0-53.0); LYMPH # 1.6 x10^3/uL (1.0-4.8); LYMPH % 27 % (24-48); MEAN CORPUSCULAR HEMOGLOBIN 32 pg (25-35); MEAN CORPUSCULAR HGB CONC 34 g/dL (31-37); MEAN CORPUSCULAR VOLUME 96 fL (79-100); MONO # 0.6 x10^3/uL (0.0-1.1); MONO % 10 % (0-9); NEUT # 3.6 x10^3uL (1.8-7.7); NEUT % 62 % (31-73); PLATELET COUNT 197 x10^3/uL (140-400); RED BLOOD COUNT 4.34 x10^6/uL (4.30-5.70); RED CELL DISTRIBUTION WIDTH 15.6 % (11.5-14.5); WHITE BLOOD COUNT 5.9 x10^3/uL (4.0-11.0)
[2018-02-22 10:50] LABS: ALBUMIN 3.4 g/dL (3.4-5.0); CREATININE 0.8 mg/dL (0.7-1.3); GFR 91.4; POTASSIUM 3.9 mmol/L (3.5-5.1); TOTAL BILIRUBIN 0.4 mg/dL (0.2-1.0); TOTAL PROTEIN 6.7 g/dL (6.4-8.2)
[2018-02-22 16:20] VITALS: BP 144/81
[2018-02-22] MEDS: TAMSULOSIN 0.4 MG CAP.ER.24H. PO SCH (20:34)
[2018-02-22] MEDS: LACTULOSE 20 GM/30 ML SOLUTION. PO PRN (20:35)
[2018-02-22] MEDS: risperiDONE ORAL 1 MG/ML 30ml BOTTLE. SL SCH (20:37)
--- NOTE | 2018-02-22 20:51 | PDOC ---
Exam Note: Óscar Note: Please also refer to the separate dictated note~for this date of service dictated separately.~Patient seen individually. Discussed the patient with Nursing staff reviewed the chart.~Reviewed interim history and current functioning. Reviewed vital signs,~Labs/ Radiology~and current medications noted below. Continue current treatment with the changes noted in the dictated addendum note Assessment: Vital Signs: Vital Signs Date Time Temp Pulse Resp B/P (MAP) Pulse Ox O2 Delivery O2 Flow Rate FiO2 02/22/18 20:42 54 144/81 02/22/18 16:20 97.0 16 96 Room Air I&O Intake and Output 02/22/18 07:01 Intake Total 360 ml Balance 360 ml Intake Oral 360 ml # Voids 1 Labs: Laboratory Tests Test 02/22/18 09:52 White Blood Count 5.9 x10^3/uL (4.0-11.0) Red Blood Count 4.34 x10^6/uL (4.30-5.70) Hemoglobin 14.0 g/dL (13.0-17.5) Hematocrit 41.4 % (39.0-53.0) Mean Corpuscular Volume 96 fL (79-100) Mean Corpuscular Hemoglobin 32 pg (25-35) Mean Corpuscular Hemoglobin Concent 34 g/dL (31-37) Red Cell Distribution Width 15.6 % (11.5-14.5) H Platelet Count 197 x10^3/uL (140-400) Neutrophils (%) (Auto) 62 % (31-73) Lymphocytes (%) (Auto) 27 % (24-48) Monocytes (%) (Auto) 10 % (0-9) H Eosinophils (%) (Auto) 1 % (0-3) Basophils (%) (Auto) 0 % (0-3) Neutrophils # (Auto) 3.6 x10^3uL (1.8-7.7) Lymphocytes # (Auto) 1.6 x10^3/uL (1.0-4.8) Monocytes # (Auto) 0.6 x10^3/uL (0.0-1.1) Eosinophils # (Auto) 0.1 x10^3/uL (0.0-0.7) Basophils # (Auto) 0.0 x10^3/uL (0.0-0.2) Sodium Level 144 mmol/L (136-145) Potassium Level 3.9 mmol/L (3.5-5.1) Chloride Level 107 mmol/L (98-107) Carbon Dioxide Level 28 mmol/L (21-32) Anion Gap 9 (6-14) Blood Urea Nitrogen 16 mg/dL (8-26) Creatinine 0.8 mg/dL (0.7-1.3) Estimated GFR (Cockcroft-Gault) 91.4 BUN/Creatinine Ratio 20 (6-20) Glucose Level 97 mg/dL (70-99) Calcium Level 9.0 mg/dL (8.5-10.1) Total Bilirubin 0.4 mg/dL (0.2-1.0) Aspartate Amino Transferase (AST) 18 U/L (15-37) Alanine Aminotransferase (ALT) 20 U/L (16-63) Alkaline Phosphatase 75 U/L (46-116) Total Protein 6.7 g/dL (6.4-8.2) Albumin 3.4 g/dL (3.4-5.0) Albumin/Globulin Ratio 1.0 (1.0-1.7) Current Medications: Meds: Current Medications Acetaminophen (Tylenol) 650 mg PRN Q6HRS PRN PO PAIN / TEMP; Start 02/12/18 at 11:15 Multi-Ingredient Ointment (Analgesic [place]) 1 nicole PRN QID PRN TP MUSCLE PAIN; Start 02/12/18 at 11:15 Al Hydroxide/Mg Hydroxide (Mylanta Plus Xs) 15 ml PRN AFTMEALHC PRN PO DYSPEPSIA; Start 02/12/18 at 11:15 Magnesium Hydroxide (Milk Of Magnesia) 2,400 mg PRN QHS PRN PO CONSTIPATION; Start 02/12/18 at 11:15 Acetaminophen (Tylenol) 650 mg PRN Q6HRS PRN PO PAIN; Start 02/12/18 at 12:00; Status Cancel Metoprolol Tartrate (Lopressor) 25 mg BID PO Last administered on 02/22/18at 20: 34; Start 02/12/18 at 21:00 Tamsulosin HCl (Flomax) 0.4 mg HS PO Last administered on 02/22/18at 20:34; Start 02/12/18 at 21:00 Aspirin (Children'S Aspirin) 81 mg DAILYWBKFT PO Last administered on 08:05; Start 02/13/18 at 08:00 Docusate Sodium (Colace) 100 mg BID PO Last administered on 02/22/18 20:34; Start 02/12/18 at 21:00 Flecainide Acetate (Tambocor) 50 mg BID PO Last administered on 02/22/18 20:42 ; Start 02/12/18 at 21:00 Memantine (Namenda) 10 mg BID PO Last administered on 02/22/18 20:34; Start at 21:00 Ketotifen Fumarate (Zaditor) 1 drop BID OU Last administered on 02/22/18 20:34 ; Start 02/12/18 at 21:00 Potassium Chloride (Klor-Con) 20 meq DAILYWBKFT PO Last administered on 08:06; Start 02/13/18 at 08:00 Witch [place]/ Glycerin (A.e.r Pads) 1 each PRN BID PRN TP hemorrhoids Last administered on 02/15/18 10:00; Start 02/12/18 at 12:00 Lactulose (Lactulose) 10 gm TID PRN PO CONSTIPATION Last administered on 20:35; Start 02/12/18 at 12:00 Fluoxetine HCl (PROzac) 10 mg DAILY PO Last administered on 02/16/18 09:08; Start 02/14/18 at 09:00; Stop 02/16/18 at 13:50; Status DC Risperidone (RisperDAL) 0.25 mg HS SL Last administered on 02/22/18 20:37; Start 02/13/18 at 22:30 Vitamin D (Vitamin D3) 50,000 unit WEEKLY PO Last administered on 02/21/18 08: 12; Start 02/14/18 at 13:30 Phenylephrine/ Shark Liver Oil (Preparation H) 1 supp PRN Q8HRS PRN [place] RECTAL PAIN Last administered on 02/15/18 17:28; Start 02/15/18 at 14:45 Fluvoxamine Maleate (Luvox) 25 mg DAILY PO Last administered on 02/18/18 08:05 ; Start 02/17/18 at 09:00; Stop 02/18/18 at 16:17; Status DC Fluvoxamine Maleate (Luvox) 50 mg DAILY PO Last administered on 02/21/18at 08:12 ; Start 02/19/18 at 09:00; Stop 02/21/18 at 12:00; Status DC Fluvoxamine Maleate (Luvox) 75 mg DAILY PO Last administered on 02/22/18at 08:06 ; Start 02/21/18 at 09:00 Active Scripts Active Flecainide Acetate 100 Mg Tablet 50 Mg PO Q12HR 90 Days Reported Tucks (Jose L De La Cruz) 1 Each Med..pad 1 Each TP PRN BID PRN Pataday (Olopatadine Hcl) 2.5 Ml Drops 1 Drop EACHEYE BID Metoprolol Tartrate 25 Mg Tablet 25 Mg PO BID Lactulose 10 Gm/15 Ml Solution 10 Gm PO Flecainide Acetate 50 Mg Tablet 50 Mg PO BID Aspirin 81 Mg Tab.chew 81 Mg PO DAILY Risperdal (Risperidone) 0.5 Mg Tablet 0.5 Mg SL QHS Coreg (Carvedilol) 3.125 Mg Tablet 3.125 Mg PO BIDWMEALS Olanzapine 5 Mg Tablet 1.25 Mg PO PRN PRN MDD 5mg/24hrs Namenda (Memantine Hcl) 10 Mg Tablet 10 Mg PO BID Prozac (Fluoxetine Hcl) 40 Mg Capsule 40 Mg PO DAILY Flomax (Tamsulosin Hcl) 0.4 Mg Cap.er.24h 4.6 Mg PO HS Zaditor (Ketotifen Fumarate) 5 Ml Drops 1 Drop EACHEYE BID Vitamin D3 (Cholecalciferol (Vitamin D3)) 5,000 Unit Tablet 50,000 Unit PO WEEKLY FRIDAY Tylenol (Acetaminophen) 325 Mg Tablet 650 Mg PO PRN Q6HRS PRN Colace (Docusate Sodium) 100 Mg Capsule 1 Cap PO BID Potassium Chloride Oral Liquid (Potassium Chloride) 20 Meq/15 Ml Liquid 20 Meq PO DAILY LAST DOSE GIVEN: DATE: TIME: NEXT DOSE DUE: DATE: TIME: I have reviewed the current psychotropics carefully including drug interactions. Risk benefit ratio favors no change other than as noted in my dictated progress note. Diagnosis: Problems: (1) Anxiety disorder (2) Mild cognitive disorder (3) Impulse control disorder (4) Major depressive disorder, recurrent episode (5) Syncopal episodes (6) Weakness (7) PSVT (paroxysmal supraventricular tachycardia) (8) Cardiac syncope (9) Suicidal ideation CHELSEA RINCON MD Feb 22, 2018 20:51
--- NOTE | 2018-02-22 22:23 | PN ---
DATE: 02/20/2018 This late entry, 02/20/2018, covers elements not covered in my initial note. SUBJECTIVE: I met with the patient in the evening. Overall, the patient remains withdrawn, spends much time in his room, but coming out for meals. He still appears depressed. Compliant with medications, obsesses about sitting on the toilet frequently. REVIEW OF SYSTEMS: No CV, , pulmonary, eye, ENT system symptoms on review. Reliability fair. MENTAL STATUS EXAM: Oriented to himself and situation. Speech moderate latency, often responses monosyllabic. Abstraction fair, computation impaired, language function intact, attention span short. Mood and affect still somewhat withdrawn, depressed, obsessive. LABORATORY DATA: Reviewed. IMPRESSION: Unchanged from initial note. PLAN: Increase Luvox to 75 mg a day after he has been on the 50 for 3 days. Continue rest unchanged. MAN Huan RINCON MD DR: SHAZIA/shanta JOB#: [id number] / [id number]
[2018-02-23 05:54] VITALS: BP 133/81
[2018-02-23] MEDS: POTASSIUM CHLORIDE 20 MEQ TABLET.ER. PO SCH (08:50)
[2018-02-23] MEDS: METOPROLOL TART IMMED RELEASE 25 MG TABLET PO SCH ×2 (08:50→20:18)
[2018-02-23] MEDS: DOCUSATE SODIUM 100 MG CAPSULE PO SCH ×2 (08:50→20:18)
[2018-02-23] MEDS: MEMANTINE 10 MG TABLET. PO SCH ×2 (08:50→20:18)
[2018-02-23] MEDS: KETOTIFEN FUMARATE 0.025% OPHT SOLUTION BOTTLE. OU SCH ×2 (08:51→20:22)
[2018-02-23] MEDS: ASPIRIN 81 MG TAB.CHEW PO SCH (08:51)
[2018-02-23] MEDS: FLECAINIDE 50 MG TABLET. PO SCH ×2 (08:56→20:22)
--- NOTE | 2018-02-23 12:40 | PN ---
DATE: 02/21/2018 PSYCHIATRIC PROGRESS NOTE This is a late entry, 02/21, covers elements not covered in my initial note. SUBJECTIVE: I met with the patient in the morning. The patient has been sometimes resistive to medications, withdrawn, spends much time in his room, but does come out to the dining room. He is still obsessed about sitting on the toilet, perhaps a little less since we started Luvox. REVIEW OF SYSTEMS: No CV, , pulmonary, eye, ENT system symptoms on review. MENTAL STATUS EXAM: Reasonably oriented. Speech moderate latency, often responses monosyllabic. Abstraction fair, computation impaired, language function intact, attention span short. Mood and affect somewhat withdrawn, obsessive, anxious. LABORATORY DATA: Reviewed. IMPRESSION: Major depressive disorder, recurrent; obsessive-compulsive disorder; anxiety disorder, unspecified. PLAN: Continue current psychotropics, Luvox and we will increase to 75 mg a day. Maintain Namenda 10 b.i.d., Risperdal 0.25 mg at bedtime. MAN Huan RINCON MD DR: SHAZIA/shanta JOB#: [id number] / [id number]
[2018-02-23 15:45] VITALS: BP 148/88
[2018-02-23] MEDS: TAMSULOSIN 0.4 MG CAP.ER.24H. PO SCH (20:18)
[2018-02-23] MEDS: LACTULOSE 20 GM/30 ML SOLUTION. PO PRN (20:18)
[2018-02-23] MEDS: risperiDONE ORAL 1 MG/ML 30ml BOTTLE. SL SCH (20:22)
--- NOTE | 2018-02-23 20:54 | PDOC ---
Exam Note: Óscar Note: Please also refer to the separate dictated note~for this date of service dictated separately.~Patient seen individually. Discussed the patient with Nursing staff reviewed the chart.~Reviewed interim history and current functioning. Reviewed vital signs,~Labs/ Radiology~and current medications noted below. Continue current treatment with the changes noted in the dictated addendum note Assessment: Vital Signs: Vital Signs Date Time Temp Pulse Resp B/P (MAP) Pulse Ox O2 Delivery O2 Flow Rate FiO2 02/23/18 20:22 53 148/88 02/23/18 15:45 98.0 19 96 02/22/18 16:20 Room Air I&O Intake and Output 02/23/18 07:01 Intake Total 360 ml Balance 360 ml Intake Oral 360 ml # Voids 1 # Bowel Movements 1 Current Medications: Meds: Current Medications Acetaminophen (Tylenol) 650 mg PRN Q6HRS PRN PO PAIN / TEMP; Start 02/12/18 at 11:15 Multi-Ingredient Ointment (Analgesic [place]) 1 nicole PRN QID PRN TP MUSCLE PAIN; Start 02/12/18 at 11:15 Al Hydroxide/Mg Hydroxide (Mylanta Plus Xs) 15 ml PRN AFTMEALHC PRN PO DYSPEPSIA; Start 02/12/18 at 11:15 Magnesium Hydroxide (Milk Of Magnesia) 2,400 mg PRN QHS PRN PO CONSTIPATION; Start 02/12/18 at 11:15 Acetaminophen (Tylenol) 650 mg PRN Q6HRS PRN PO PAIN; Start 02/12/18 at 12:00; Status Cancel Metoprolol Tartrate (Lopressor) 25 mg BID PO Last administered on 02/23/18at 20: 18; Start 02/12/18 at 21:00 Tamsulosin HCl (Flomax) 0.4 mg HS PO Last administered on 02/23/18at 20:18; Start 02/12/18 at 21:00 Aspirin (Children'S Aspirin) 81 mg DAILYWBKFT PO Last administered on at 08:51; Start 02/13/18 at 08:00 Docusate Sodium (Colace) 100 mg BID PO Last administered on 02/23/18at 20:18; Start 02/12/18 at 21:00 Flecainide Acetate (Tambocor) 50 mg BID PO Last administered on 02/23/18 20:22 ; Start 02/12/18 at 21:00 Memantine (Namenda) 10 mg BID PO Last administered on 02/23/18 20:18; Start at 21:00 Ketotifen Fumarate (Zaditor) 1 drop BID OU Last administered on 02/23/18 20:22 ; Start 02/12/18 at 21:00 Potassium Chloride (Klor-Con) 20 meq DAILYWBKFT PO Last administered on at 08:50; Start 02/13/18 at 08:00 Witch [place]/ Glycerin (A.e.r Pads) 1 each PRN BID PRN TP hemorrhoids Last administered on 02/15/18 10:00; Start 02/12/18 at 12:00 Lactulose (Lactulose) 10 gm TID PRN PO CONSTIPATION Last administered on 20:18; Start 02/12/18 at 12:00 Fluoxetine HCl (PROzac) 10 mg DAILY PO Last administered on 02/16/18at 09:08; Start 02/14/18 at 09:00; Stop 02/16/18 at 13:50; Status DC Risperidone (RisperDAL) 0.25 mg HS SL Last administered on 02/23/18 20:22; Start 02/13/18 at 22:30 Vitamin D (Vitamin D3) 50,000 unit WEEKLY PO Last administered on 02/21/18 08: 12; Start 02/14/18 at 13:30 Phenylephrine/ Shark Liver Oil (Preparation H) 1 supp PRN Q8HRS PRN [place] RECTAL PAIN Last administered on 02/15/18at 17:28; Start 02/15/18 at 14:45 Fluvoxamine Maleate (Luvox) 25 mg DAILY PO Last administered on 02/18/18 08:05 ; Start 02/17/18 at 09:00; Stop 02/18/18 at 16:17; Status DC Fluvoxamine Maleate (Luvox) 50 mg DAILY PO Last administered on 02/21/18at 08:12 ; Start 02/19/18 at 09:00; Stop 02/21/18 at 12:00; Status DC Fluvoxamine Maleate (Luvox) 75 mg DAILY PO Last administered on 02/23/18at 20:18 ; Start 02/21/18 at 09:00 Active Scripts Active Flecainide Acetate 100 Mg Tablet 50 Mg PO Q12HR 90 Days Reported Tucks (Jose L De La Cruz) 1 Each Med..pad 1 Each TP PRN BID PRN Pataday (Olopatadine Hcl) 2.5 Ml Drops 1 Drop EACHEYE BID Metoprolol Tartrate 25 Mg Tablet 25 Mg PO BID Lactulose 10 Gm/15 Ml Solution 10 Gm PO Flecainide Acetate 50 Mg Tablet 50 Mg PO BID Aspirin 81 Mg Tab.chew 81 Mg PO DAILY Risperdal (Risperidone) 0.5 Mg Tablet 0.5 Mg SL QHS Coreg (Carvedilol) 3.125 Mg Tablet 3.125 Mg PO BIDWMEALS Olanzapine 5 Mg Tablet 1.25 Mg PO PRN PRN MDD 5mg/24hrs Namenda (Memantine Hcl) 10 Mg Tablet 10 Mg PO BID Prozac (Fluoxetine Hcl) 40 Mg Capsule 40 Mg PO DAILY Flomax (Tamsulosin Hcl) 0.4 Mg Cap.er.24h 4.6 Mg PO HS Zaditor (Ketotifen Fumarate) 5 Ml Drops 1 Drop EACHEYE BID Vitamin D3 (Cholecalciferol (Vitamin D3)) 5,000 Unit Tablet 50,000 Unit PO WEEKLY FRIDAY Tylenol (Acetaminophen) 325 Mg Tablet 650 Mg PO PRN Q6HRS PRN Colace (Docusate Sodium) 100 Mg Capsule 1 Cap PO BID Potassium Chloride Oral Liquid (Potassium Chloride) 20 Meq/15 Ml Liquid 20 Meq PO DAILY LAST DOSE GIVEN: DATE: TIME: NEXT DOSE DUE: DATE: TIME: I have reviewed the current psychotropics carefully including drug interactions. Risk benefit ratio favors no change other than as noted in my dictated progress note. Diagnosis: Problems: (1) Anxiety disorder (2) Mild cognitive disorder (3) Impulse control disorder (4) Major depressive disorder, recurrent episode (5) Syncopal episodes (6) Weakness (7) PSVT (paroxysmal supraventricular tachycardia) (8) Cardiac syncope (9) Suicidal ideation CHELSEA RINCON MD Feb 23, 2018 20:54
--- NOTE | 2018-02-23 22:53 | PN ---
DATE: 02/22/2018 PSYCHIATRIC PROGRESS NOTE This is a late entry, 02/22, covers elements not covered in my initial note. SUBJECTIVE: I met with the patient in the morning. The patient slept 6-3/4 hours the previous night. Morning of 02/22, refused his medications. Previous night, resistive to medications, talking about everyone "playing games with him and against him." REVIEW OF SYSTEMS: No CV, , pulmonary, eye, ENT system symptoms on review. He is still obsessed with his bowel and being on the toilet, but less so than before. MENTAL STATUS EXAM: Oriented to himself and situation. Speech has moderate latency, low in rate and rhythm, low in volume. Abstraction fair, computation impaired, language function intact, attention span short. Mood and affect somewhat withdrawn, anxious, obsessive. LABORATORY DATA: Reviewed. IMPRESSION: Unchanged from initial note. PLAN: No change from initial note, may need to increase Luvox gradually. Continue Risperdal 0.25 mg at bedtime. MAN Huan RINCON MD DR: SHAZIA/shanta JOB#: [id number] / [id number]
[2018-02-24 05:17] VITALS: BP 141/80
[2018-02-24] MEDS: POTASSIUM CHLORIDE 20 MEQ TABLET.ER. PO SCH (08:00)
[2018-02-24] MEDS: ASPIRIN 81 MG TAB.CHEW PO SCH (09:21)
[2018-02-24] MEDS: DOCUSATE SODIUM 100 MG CAPSULE PO SCH ×2 (09:22→20:22)
[2018-02-24] MEDS: KETOTIFEN FUMARATE 0.025% OPHT SOLUTION BOTTLE. OU SCH ×2 (09:22→20:26)
[2018-02-24] MEDS: METOPROLOL TART IMMED RELEASE 25 MG TABLET PO SCH ×2 (09:24→20:22)
[2018-02-24] MEDS: MEMANTINE 10 MG TABLET. PO SCH ×2 (09:24→20:21)
[2018-02-24] MEDS: FLECAINIDE 50 MG TABLET. PO SCH ×2 (09:28→20:26)
[2018-02-24 15:58] VITALS: BP 115/74
[2018-02-24] MEDS: LACTULOSE 20 GM/30 ML SOLUTION. PO PRN (20:22)
[2018-02-24] MEDS: TAMSULOSIN 0.4 MG CAP.ER.24H. PO SCH (20:22)
[2018-02-24] MEDS: risperiDONE ORAL 1 MG/ML 30ml BOTTLE. SL SCH (20:25)
--- NOTE | 2018-02-24 20:48 | PDOC ---
Exam Note: Óscar Note: Please also refer to the separate dictated note~for this date of service dictated separately.~Patient seen individually. Discussed the patient with Nursing staff reviewed the chart.~Reviewed interim history and current functioning. Reviewed vital signs,~Labs/ Radiology~and current medications noted below. Continue current treatment with the changes noted in the dictated addendum note Assessment: Vital Signs: Vital Signs Date Time Temp Pulse Resp B/P (MAP) Pulse Ox O2 Delivery O2 Flow Rate FiO2 02/24/18 20:26 54 115/74 02/24/18 15:58 97.8 16 96 02/22/18 16:20 Room Air I&O Intake and Output 02/24/18 07:00 Intake Total 360 ml Balance 360 ml Intake Oral 360 ml # Voids 1 # Bowel Movements 1 Current Medications: Meds: Current Medications Acetaminophen (Tylenol) 650 mg PRN Q6HRS PRN PO PAIN / TEMP; Start 02/12/18 at 11:15 Multi-Ingredient Ointment (Analgesic [place]) 1 nicole PRN QID PRN TP MUSCLE PAIN; Start 02/12/18 at 11:15 Al Hydroxide/Mg Hydroxide (Mylanta Plus Xs) 15 ml PRN AFTMEALHC PRN PO DYSPEPSIA; Start 02/12/18 at 11:15 Magnesium Hydroxide (Milk Of Magnesia) 2,400 mg PRN QHS PRN PO CONSTIPATION; Start 02/12/18 at 11:15 Acetaminophen (Tylenol) 650 mg PRN Q6HRS PRN PO PAIN; Start 02/12/18 at 12:00; Status Cancel Metoprolol Tartrate (Lopressor) 25 mg BID PO Last administered on 02/24/18at 20: 22; Start 02/12/18 at 21:00 Tamsulosin HCl (Flomax) 0.4 mg HS PO Last administered on 02/24/18at 20:22; Start 02/12/18 at 21:00 Aspirin (Children'S Aspirin) 81 mg DAILYWBKFT PO Last administered on at 09:21; Start 02/13/18 at 08:00 Docusate Sodium (Colace) 100 mg BID PO Last administered on 02/24/18at 20:22; Start 02/12/18 at 21:00 Flecainide Acetate (Tambocor) 50 mg BID PO Last administered on 02/24/18 20:26 ; Start 02/12/18 at 21:00 Memantine (Namenda) 10 mg BID PO Last administered on 02/24/18 20:21; Start at 21:00 Ketotifen Fumarate (Zaditor) 1 drop BID OU Last administered on 02/24/18 20:26 ; Start 02/12/18 at 21:00 Potassium Chloride (Klor-Con) 20 meq DAILYWBKFT PO Last administered on at 08:00; Start 02/13/18 at 08:00 Witch [place]/ Glycerin (A.e.r Pads) 1 each PRN BID PRN TP hemorrhoids Last administered on 02/15/18 10:00; Start 02/12/18 at 12:00 Lactulose (Lactulose) 10 gm TID PRN PO CONSTIPATION Last administered on 20:22; Start 02/12/18 at 12:00 Fluoxetine HCl (PROzac) 10 mg DAILY PO Last administered on 02/16/18at 09:08; Start 02/14/18 at 09:00; Stop 02/16/18 at 13:50; Status DC Risperidone (RisperDAL) 0.25 mg HS SL Last administered on 02/24/18 20:25; Start 02/13/18 at 22:30 Vitamin D (Vitamin D3) 50,000 unit WEEKLY PO Last administered on 02/21/18 08: 12; Start 02/14/18 at 13:30 Phenylephrine/ Shark Liver Oil (Preparation H) 1 supp PRN Q8HRS PRN [place] RECTAL PAIN Last administered on 02/15/18at 17:28; Start 02/15/18 at 14:45 Fluvoxamine Maleate (Luvox) 25 mg DAILY PO Last administered on 02/18/18 08:05 ; Start 02/17/18 at 09:00; Stop 02/18/18 at 16:17; Status DC Fluvoxamine Maleate (Luvox) 50 mg DAILY PO Last administered on 02/21/18 08:12 ; Start 02/19/18 at 09:00; Stop 02/21/18 at 12:00; Status DC Fluvoxamine Maleate (Luvox) 75 mg DAILY PO Last administered on 02/23/18at 20:18 ; Start 02/21/18 at 09:00 Active Scripts Active Flecainide Acetate 100 Mg Tablet 50 Mg PO Q12HR 90 Days Reported Tucks (Jose L De La Cruz) 1 Each Med..pad 1 Each TP PRN BID PRN Pataday (Olopatadine Hcl) 2.5 Ml Drops 1 Drop EACHEYE BID Metoprolol Tartrate 25 Mg Tablet 25 Mg PO BID Lactulose 10 Gm/15 Ml Solution 10 Gm PO Flecainide Acetate 50 Mg Tablet 50 Mg PO BID Aspirin 81 Mg Tab.chew 81 Mg PO DAILY Risperdal (Risperidone) 0.5 Mg Tablet 0.5 Mg SL QHS Coreg (Carvedilol) 3.125 Mg Tablet 3.125 Mg PO BIDWMEALS Olanzapine 5 Mg Tablet 1.25 Mg PO PRN PRN MDD 5mg/24hrs Namenda (Memantine Hcl) 10 Mg Tablet 10 Mg PO BID Prozac (Fluoxetine Hcl) 40 Mg Capsule 40 Mg PO DAILY Flomax (Tamsulosin Hcl) 0.4 Mg Cap.er.24h 4.6 Mg PO HS Zaditor (Ketotifen Fumarate) 5 Ml Drops 1 Drop EACHEYE BID Vitamin D3 (Cholecalciferol (Vitamin D3)) 5,000 Unit Tablet 50,000 Unit PO WEEKLY FRIDAY Tylenol (Acetaminophen) 325 Mg Tablet 650 Mg PO PRN Q6HRS PRN Colace (Docusate Sodium) 100 Mg Capsule 1 Cap PO BID Potassium Chloride Oral Liquid (Potassium Chloride) 20 Meq/15 Ml Liquid 20 Meq PO DAILY LAST DOSE GIVEN: DATE: TIME: NEXT DOSE DUE: DATE: TIME: I have reviewed the current psychotropics carefully including drug interactions. Risk benefit ratio favors no change other than as noted in my dictated progress note. Diagnosis: Problems: (1) Anxiety disorder (2) Mild cognitive disorder (3) Impulse control disorder (4) Major depressive disorder, recurrent episode (5) Syncopal episodes (6) Weakness (7) PSVT (paroxysmal supraventricular tachycardia) (8) Cardiac syncope (9) Suicidal ideation CHELSEA RINCON MD Feb 24, 2018 20:48
--- NOTE | 2018-02-25 01:04 | PN ---
DATE: 02/23/2018 PSYCHIATRIC PROGRESS NOTE This is a late entry, 02/23, covers elements not covered in my initial note. SUBJECTIVE: I met with the patient in the evening. The patient has been somewhat less bowel obsessed. He slept 5 hours previous evening, stays withdrawn in his room. REVIEW OF SYSTEMS: No CV, , pulmonary, eye, ENT system symptoms on review. MENTAL STATUS EXAM: Oriented to himself and situation. Speech moderate latency, often responses monosyllabic. Abstraction fair, computation impaired. Mood and affect still somewhat dysphoric, anxious, obsessive. LABORATORY DATA: Reviewed. IMPRESSION: Major depressive disorder with psychotic features, obsessive-compulsive disorder. Rest unchanged. PLAN: No change from a psychiatric standpoint from initial note. MAN Huan RINCON MD DR: SHAZIA/shanta JOB#: [id number] / [id number]
[2018-02-25 05:33] VITALS: BP 155/88
[2018-02-25] MEDS: MEMANTINE 10 MG TABLET. PO SCH ×2 (08:04→20:19)
[2018-02-25] MEDS: DOCUSATE SODIUM 100 MG CAPSULE PO SCH ×2 (08:04→20:19)
[2018-02-25] MEDS: METOPROLOL TART IMMED RELEASE 25 MG TABLET PO SCH ×2 (08:04→20:19)
[2018-02-25] MEDS: POTASSIUM CHLORIDE 20 MEQ TABLET.ER. PO SCH (08:04)
[2018-02-25] MEDS: ASPIRIN 81 MG TAB.CHEW PO SCH (08:04)
[2018-02-25] MEDS: KETOTIFEN FUMARATE 0.025% OPHT SOLUTION BOTTLE. OU SCH ×3 (08:07→20:25)
[2018-02-25] MEDS: FLECAINIDE 50 MG TABLET. PO SCH ×2 (08:07→20:22)
[2018-02-25 15:57] VITALS: BP 119/72
[2018-02-25] MEDS: TAMSULOSIN 0.4 MG CAP.ER.24H. PO SCH (20:19)
[2018-02-25] MEDS: risperiDONE ORAL 1 MG/ML 30ml BOTTLE. SL SCH (20:22)
--- NOTE | 2018-02-25 20:57 | PDOC ---
Exam Note: Óscar Note: Please also refer to the separate dictated note~for this date of service dictated separately.~Patient seen individually. Discussed the patient with Nursing staff reviewed the chart.~Reviewed interim history and current functioning. Reviewed vital signs,~Labs/ Radiology~and current medications noted below. Continue current treatment with the changes noted in the dictated addendum note Assessment: Vital Signs: Vital Signs Date Time Temp Pulse Resp B/P (MAP) Pulse Ox O2 Delivery O2 Flow Rate FiO2 02/25/18 20:22 56 119/72 02/25/18 15:57 97.6 16 96 02/22/18 16:20 Room Air I&O Intake and Output 02/25/18 07:00 Intake Total 840 ml Balance 840 ml Intake Oral 840 ml # Voids 1 Current Medications: Meds: Current Medications Acetaminophen (Tylenol) 650 mg PRN Q6HRS PRN PO PAIN / TEMP; Start 02/12/18 at 11:15 Multi-Ingredient Ointment (Analgesic [place]) 1 nicole PRN QID PRN TP MUSCLE PAIN; Start 02/12/18 at 11:15 Al Hydroxide/Mg Hydroxide (Mylanta Plus Xs) 15 ml PRN AFTMEALHC PRN PO DYSPEPSIA; Start 02/12/18 at 11:15 Magnesium Hydroxide (Milk Of Magnesia) 2,400 mg PRN QHS PRN PO CONSTIPATION; Start 02/12/18 at 11:15 Acetaminophen (Tylenol) 650 mg PRN Q6HRS PRN PO PAIN; Start 02/12/18 at 12:00; Status Cancel Metoprolol Tartrate (Lopressor) 25 mg BID PO Last administered on 02/25/18at 20: 19; Start 02/12/18 at 21:00 Tamsulosin HCl (Flomax) 0.4 mg HS PO Last administered on 02/25/18at 20:19; Start 02/12/18 at 21:00 Aspirin (Children'S Aspirin) 81 mg DAILYWBKFT PO Last administered on at 08:04; Start 02/13/18 at 08:00 Docusate Sodium (Colace) 100 mg BID PO Last administered on 02/25/18at 20:19; Start 02/12/18 at 21:00 Flecainide Acetate (Tambocor) 50 mg BID PO Last administered on 02/25/18 20:22 ; Start 02/12/18 at 21:00 Memantine (Namenda) 10 mg BID PO Last administered on 02/25/18 20:19; Start at 21:00 Ketotifen Fumarate (Zaditor) 1 drop BID OU Last administered on 02/24/18 20:26 ; Start 02/12/18 at 21:00 Potassium Chloride (Klor-Con) 20 meq DAILYWBKFT PO Last administered on at 08:04; Start 02/13/18 at 08:00 Witch Dorothy/ Glycerin (A.e.r Pads) 1 each PRN BID PRN TP hemorrhoids Last administered on 02/15/18 10:00; Start 02/12/18 at 12:00 Lactulose (Lactulose) 10 gm TID PRN PO CONSTIPATION Last administered on 20:22; Start 02/12/18 at 12:00; Stop 02/25/18 at 01:57; Status DC Fluoxetine HCl (PROzac) 10 mg DAILY PO Last administered on 02/16/18 09:08; Start 02/14/18 at 09:00; Stop 02/16/18 at 13:50; Status DC Risperidone (RisperDAL) 0.25 mg HS SL Last administered on 02/25/18 20:22; Start 02/13/18 at 22:30 Vitamin D (Vitamin D3) 50,000 unit WEEKLY PO Last administered on 02/21/18 08: 12; Start 02/14/18 at 13:30 Phenylephrine/ Shark Liver Oil (Preparation H) 1 supp PRN Q8HRS PRN [place] RECTAL PAIN Last administered on 02/15/18 17:28; Start 02/15/18 at 14:45 Fluvoxamine Maleate (Luvox) 25 mg DAILY PO Last administered on 02/18/18 08:05 ; Start 02/17/18 at 09:00; Stop 02/18/18 at 16:17; Status DC Fluvoxamine Maleate (Luvox) 50 mg DAILY PO Last administered on 02/21/18 08:12 ; Start 02/19/18 at 09:00; Stop 02/21/18 at 12:00; Status DC Fluvoxamine Maleate (Luvox) 75 mg DAILY PO Last administered on 02/25/18at 08:03 ; Start 02/21/18 at 09:00 Lactulose (Lactulose) 10 gm PRN TID PRN PO CONSTIPATION; Start 02/25/18 at 02: 00 Active Scripts Active Flecainide Acetate 100 Mg Tablet 50 Mg PO Q12HR 90 Days Reported Tucks (Witch Dorothy) 1 Each Med..pad 1 Each TP PRN BID PRN Pataday (Olopatadine Hcl) 2.5 Ml Drops 1 Drop EACHEYE BID Metoprolol Tartrate 25 Mg Tablet 25 Mg PO BID Lactulose 10 Gm/15 Ml Solution 10 Gm PO Flecainide Acetate 50 Mg Tablet 50 Mg PO BID Aspirin 81 Mg Tab.chew 81 Mg PO DAILY Risperdal (Risperidone) 0.5 Mg Tablet 0.5 Mg SL QHS Coreg (Carvedilol) 3.125 Mg Tablet 3.125 Mg PO BIDWMEALS Olanzapine 5 Mg Tablet 1.25 Mg PO PRN PRN MDD 5mg/24hrs Namenda (Memantine Hcl) 10 Mg Tablet 10 Mg PO BID Prozac (Fluoxetine Hcl) 40 Mg Capsule 40 Mg PO DAILY Flomax (Tamsulosin Hcl) 0.4 Mg Cap.er.24h 4.6 Mg PO HS Zaditor (Ketotifen Fumarate) 5 Ml Drops 1 Drop EACHEYE BID Vitamin D3 (Cholecalciferol (Vitamin D3)) 5,000 Unit Tablet 50,000 Unit PO WEEKLY FRIDAY Tylenol (Acetaminophen) 325 Mg Tablet 650 Mg PO PRN Q6HRS PRN Colace (Docusate Sodium) 100 Mg Capsule 1 Cap PO BID Potassium Chloride Oral Liquid (Potassium Chloride) 20 Meq/15 Ml Liquid 20 Meq PO DAILY LAST DOSE GIVEN: DATE: TIME: NEXT DOSE DUE: DATE: TIME: I have reviewed the current psychotropics carefully including drug interactions. Risk benefit ratio favors no change other than as noted in my dictated progress note. Diagnosis: Problems: (1) Anxiety disorder (2) Mild cognitive disorder (3) Impulse control disorder (4) Major depressive disorder, recurrent episode (5) Syncopal episodes (6) Weakness (7) PSVT (paroxysmal supraventricular tachycardia) (8) Cardiac syncope (9) Suicidal ideation CHELSEA RINCON MD Feb 25, 2018 20:56
--- NOTE | 2018-02-25 23:00 | PN ---
DATE: 02/24/2018 This is a late entry of 02/24/2018, covers elements not covered in my initial note. SUBJECTIVE: I met with the patient in the evening. The patient slept 7-1/4 hours previous evening, has been pleasant, confused, and compliant with his medications, comes in and out of the day room, oblivious of his surroundings, frequently crosses his chest with his hands in a cross as a quaker reflection of him. REVIEW OF SYSTEMS: No CV, , pulmonary, eye, ENT system symptoms on review. MENTAL STATUS EXAM: Insight, judgment, recent and remote memory, attention, concentration, fund of knowledge poor, consistent with his diagnosis mentioned in my initial note. PLAN: No change from initial note. Social service staff is diligently working on transition to appropriate facility and he is ready to transition as he has been for some time as soon as appropriate placement found. CHELSEA RINCON MD DR: SHAZIA/shanta JOB#: [id number] / [id number]
--- NOTE | 2018-02-25 23:09 | PN ---
DATE: 02/24/2018 PSYCHIATRIC PROGRESS NOTE I previously dictated a note for this patient, date of service 02/24/2018 under dictation #[id number], but that note was partly of another patient with data intermixed in error and should be disregarded and I am re-dictating, date of service 02/24/2018 with this note. SUBJECTIVE: The patient was seen individually in evening of 02/24/2018. Discussed with nursing staff, reviewed the chart, reviewed interim history, current functioning. This note covers elements not covered in my initial note of 02/24/2018. The patient slept 7-1/4 hours previous evening, he has been pleasant, compliant with medications, spends time in the day room, spending more time out of his room, less isolated. REVIEW OF SYSTEMS: No CV, , pulmonary, eye, ENT system symptoms on review. He is less obsessed with the bowel in the toilet. MENTAL STATUS EXAM: Oriented to himself and situation. Speech moderate latency, often responses monosyllabic. Abstraction is fair, computation impaired, language function intact, attention span short. Mood and affect somewhat withdrawn, but less anxious, less depressed and less obsessive. No suicidal or homicidal ideation. LABORATORY DATA: Reviewed. IMPRESSION: Major depressive disorder with psychotic features; anxiety disorder, unspecified; cognitive disorder, unspecified. PLAN: No change from initial note. MAN Huan RINCON MD DR: SHAZIA/shanta JOB#: [id number] / [id number]
[2018-02-26 05:53] VITALS: BP 114/63
[2018-02-26] MEDS: ASPIRIN 81 MG TAB.CHEW PO SCH (08:13)
[2018-02-26] MEDS: METOPROLOL TART IMMED RELEASE 25 MG TABLET PO SCH ×2 (08:13→20:00)
[2018-02-26] MEDS: DOCUSATE SODIUM 100 MG CAPSULE PO SCH ×2 (08:13→19:59)
[2018-02-26] MEDS: MEMANTINE 10 MG TABLET. PO SCH ×2 (08:13→20:00)
[2018-02-26] MEDS: POTASSIUM CHLORIDE 20 MEQ TABLET.ER. PO SCH (08:14)
[2018-02-26] MEDS: FLECAINIDE 50 MG TABLET. PO SCH ×2 (08:15→20:02)
[2018-02-26] MEDS: KETOTIFEN FUMARATE 0.025% OPHT SOLUTION BOTTLE. OU SCH (09:00)
[2018-02-26 15:54] VITALS: BP 136/59
[2018-02-26] MEDS ORDERED: KETOTIFEN FUMARATE 0.025% OPHT SOLUTION BOTTLE. OU PRN (16:45)
[2018-02-26] MEDS: TAMSULOSIN 0.4 MG CAP.ER.24H. PO SCH (19:59)
[2018-02-26] MEDS: risperiDONE ORAL 1 MG/ML 30ml BOTTLE. SL SCH (20:02)
--- NOTE | 2018-02-26 20:31 | PDOC ---
Exam Note: Óscar Note: Please also refer to the separate dictated note~for this date of service dictated separately.~Patient seen individually. Discussed the patient with Nursing staff reviewed the chart.~Reviewed interim history and current functioning. Reviewed vital signs,~Labs/ Radiology~and current medications noted below. Continue current treatment with the changes noted in the dictated addendum note Assessment: Vital Signs: Vital Signs Date Time Temp Pulse Resp B/P (MAP) Pulse Ox O2 Delivery O2 Flow Rate FiO2 02/26/18 20:02 55 136/59 02/26/18 15:54 97.3 16 96 Room Air I&O Intake and Output 02/26/18 07:00 Intake Total 840 ml Balance 840 ml Intake Oral 840 ml # Voids 1 Current Medications: Meds: Current Medications Acetaminophen (Tylenol) 650 mg PRN Q6HRS PRN PO PAIN / TEMP; Start 02/12/18 at 11:15 Multi-Ingredient Ointment (Analgesic [place]) 1 nicole PRN QID PRN TP MUSCLE PAIN; Start 02/12/18 at 11:15 Al Hydroxide/Mg Hydroxide (Mylanta Plus Xs) 15 ml PRN AFTMEALHC PRN PO DYSPEPSIA; Start 02/12/18 at 11:15 Magnesium Hydroxide (Milk Of Magnesia) 2,400 mg PRN QHS PRN PO CONSTIPATION; Start 02/12/18 at 11:15 Acetaminophen (Tylenol) 650 mg PRN Q6HRS PRN PO PAIN; Start 02/12/18 at 12:00; Status Cancel Metoprolol Tartrate (Lopressor) 25 mg BID PO Last administered on 02/26/18at 20: 00; Start 02/12/18 at 21:00 Tamsulosin HCl (Flomax) 0.4 mg HS PO Last administered on 02/26/18 19:59; Start 02/12/18 at 21:00 Aspirin (Children'S Aspirin) 81 mg DAILYWBKFT PO Last administered on at 08:13; Start 02/13/18 at 08:00 Docusate Sodium (Colace) 100 mg BID PO Last administered on 02/26/18 19:59; Start 02/12/18 at 21:00 Flecainide Acetate (Tambocor) 50 mg BID PO Last administered on 02/26/18at 20:02 ; Start 02/12/18 at 21:00 Memantine (Namenda) 10 mg BID PO Last administered on 02/26/18 20:00; Start at 21:00 Ketotifen Fumarate (Zaditor) 1 drop BID OU Last administered on 02/24/18 20:26 ; Start 02/12/18 at 21:00; Stop 02/26/18 at 16:34; Status DC Potassium Chloride (Klor-Con) 20 meq DAILYWBKFT PO Last administered on 08:14; Start 02/13/18 at 08:00 Witch Dorothy/ Glycerin (A.e.r Pads) 1 each PRN BID PRN TP hemorrhoids Last administered on 02/15/18 10:00; Start 02/12/18 at 12:00 Lactulose (Lactulose) 10 gm TID PRN PO CONSTIPATION Last administered on 20:22; Start 02/12/18 at 12:00; Stop 02/25/18 at 01:57; Status DC Fluoxetine HCl (PROzac) 10 mg DAILY PO Last administered on 02/16/18 09:08; Start 02/14/18 at 09:00; Stop 02/16/18 at 13:50; Status DC Risperidone (RisperDAL) 0.25 mg HS SL Last administered on 02/26/18 20:02; Start 02/13/18 at 22:30 Vitamin D (Vitamin D3) 50,000 unit WEEKLY PO Last administered on 02/21/18 08: 12; Start 02/14/18 at 13:30 Phenylephrine/ Shark Liver Oil (Preparation H) 1 supp PRN Q8HRS PRN [place] RECTAL PAIN Last administered on 02/15/18 17:28; Start 02/15/18 at 14:45 Fluvoxamine Maleate (Luvox) 25 mg DAILY PO Last administered on 02/18/18 08:05 ; Start 02/17/18 at 09:00; Stop 02/18/18 at 16:17; Status DC Fluvoxamine Maleate (Luvox) 50 mg DAILY PO Last administered on 02/21/18 08:12 ; Start 02/19/18 at 09:00; Stop 8/18/18 at 12:00; Status DC Fluvoxamine Maleate (Luvox) 75 mg DAILY PO Last administered on 02/26/18at 08:13 ; Start 02/21/18 at 09:00; Stop 02/26/18 at 09:56; Status DC Lactulose (Lactulose) 10 gm PRN TID PRN PO CONSTIPATION; Start 02/25/18 at 02: 00 Fluvoxamine Maleate (Luvox) 100 mg DAILY PO ; Start 02/27/18 at 09:00 Ketotifen Fumarate (Zaditor) 1 drop PRN BID PRN OU ALLERGIES; Start 02/26/18 at 16:45 Active Scripts Active Flecainide Acetate 100 Mg Tablet 50 Mg PO Q12HR 90 Days Reported Tucks (Jose L De La Cruz) 1 Each Med..pad 1 Each TP PRN BID PRN Pataday (Olopatadine Hcl) 2.5 Ml Drops 1 Drop EACHEYE BID Metoprolol Tartrate 25 Mg Tablet 25 Mg PO BID Lactulose 10 Gm/15 Ml Solution 10 Gm PO Flecainide Acetate 50 Mg Tablet 50 Mg PO BID Aspirin 81 Mg Tab.chew 81 Mg PO DAILY Risperdal (Risperidone) 0.5 Mg Tablet 0.5 Mg SL QHS Coreg (Carvedilol) 3.125 Mg Tablet 3.125 Mg PO BIDWMEALS Olanzapine 5 Mg Tablet 1.25 Mg PO PRN PRN MDD 5mg/24hrs Namenda (Memantine Hcl) 10 Mg Tablet 10 Mg PO BID Prozac (Fluoxetine Hcl) 40 Mg Capsule 40 Mg PO DAILY Flomax (Tamsulosin Hcl) 0.4 Mg Cap.er.24h 4.6 Mg PO HS Zaditor (Ketotifen Fumarate) 5 Ml Drops 1 Drop EACHEYE BID Vitamin D3 (Cholecalciferol (Vitamin D3)) 5,000 Unit Tablet 50,000 Unit PO WEEKLY FRIDAY Tylenol (Acetaminophen) 325 Mg Tablet 650 Mg PO PRN Q6HRS PRN Colace (Docusate Sodium) 100 Mg Capsule 1 Cap PO BID Potassium Chloride Oral Liquid (Potassium Chloride) 20 Meq/15 Ml Liquid 20 Meq PO DAILY LAST DOSE GIVEN: DATE: TIME: NEXT DOSE DUE: DATE: TIME: I have reviewed the current psychotropics carefully including drug interactions. Risk benefit ratio favors no change other than as noted in my dictated progress note. Diagnosis: Problems: (1) Anxiety disorder (2) Mild cognitive disorder (3) Impulse control disorder (4) Major depressive disorder, recurrent episode (5) Syncopal episodes (6) Weakness (7) PSVT (paroxysmal supraventricular tachycardia) (8) Cardiac syncope (9) Suicidal ideation CHELSEA RINCON MD Feb 26, 2018 20:31
[2018-02-27 05:50] VITALS: BP 140/82
[2018-02-27] MEDS: DOCUSATE SODIUM 100 MG CAPSULE PO SCH ×2 (08:07→19:47)
[2018-02-27] MEDS: MEMANTINE 10 MG TABLET. PO SCH ×2 (08:07→19:48)
[2018-02-27] MEDS: ASPIRIN 81 MG TAB.CHEW PO SCH (08:07)
[2018-02-27] MEDS: METOPROLOL TART IMMED RELEASE 25 MG TABLET PO SCH ×2 (08:08→19:48)
[2018-02-27] MEDS: POTASSIUM CHLORIDE 20 MEQ TABLET.ER. PO SCH (08:08)
[2018-02-27] MEDS: FLECAINIDE 50 MG TABLET. PO SCH ×2 (08:09→19:49)
[2018-02-27 16:32] VITALS: BP 123/66
[2018-02-27] MEDS: TAMSULOSIN 0.4 MG CAP.ER.24H. PO SCH (19:47)
[2018-02-27] MEDS: risperiDONE ORAL 1 MG/ML 30ml BOTTLE. SL SCH (19:49)
--- NOTE | 2018-02-28 00:17 | PN ---
DATE: 02/25/2018 PSYCHIATRIC PROGRESS NOTE This late entry 02/25/2018 covers elements not covered in my initial note. SUBJECTIVE: Met with the patient in the evening. The patient slept 7-1/2 hours previous night. He has been less obsessive about the toilet, less paranoid, per nursing report, less anxious, coming out of his room more in the day room, compliant with medications. REVIEW OF SYSTEMS: No CV, , pulmonary, eye, ENT system symptoms on review. Reliability poor. MENTAL STATUS EXAM: Oriented to himself, situation. Speech has some latency, low in volume, coherent, abstraction fair, computation impaired, language function is intact, attention span short. Mood and affect remain somewhat withdrawn, obsessive. No suicidal or homicidal ideation. LABORATORY DATA: Reviewed. IMPRESSION: Unchanged from initial note. PLAN: No change from initial note. MAN Huan RINCON MD DR: SHAZIA/shanta JOB#: [id number] / [id number]
--- NOTE | 2018-02-28 00:44 | PN ---
DATE: 02/26/2018 PSYCHIATRIC PROGRESS NOTE This is a late entry of 02/26/2018 covers elements not covered in my initial note. SUBJECTIVE: I met with the patient in the evening of 02/26/2018, staffed at a treatment team meeting with the entire team in the morning. The patient slept 7-3/4 hours previous evening. Reviewed his history, diagnosis, discharge plans. He is still somewhat obsessed about the toilet, less so than before. Oral intake is poor, resistive to medications. Discussed placement options at [facility] or [place]. REVIEW OF SYSTEMS: No CV, , pulmonary, eye, ENT system symptoms on review. Reliability varies. MENTAL STATUS EXAM: Oriented to himself and situation. Speech moderate latency, low in rate and rhythm, low in volume, coherent, abstraction fair, computation impaired, language function intact. Mood and affect somewhat withdrawn, but better than before. LABORATORY DATA: Reviewed. IMPRESSION: Unchanged from initial note. PLAN: Increase Luvox to 100 mg p.o. at bedtime. Rest unchanged from initial note. MAN Huan RINCON MD DR: SHAZIA/shanta JOB#: [id number] / [id number]
[2018-02-28 06:21] VITALS: BP 123/77
[2018-02-28] MEDS: ASPIRIN 81 MG TAB.CHEW PO SCH (08:13)
[2018-02-28] MEDS: DOCUSATE SODIUM 100 MG CAPSULE PO SCH ×2 (08:14→19:37)
[2018-02-28] MEDS: POTASSIUM CHLORIDE 20 MEQ TABLET.ER. PO SCH (08:14)
[2018-02-28] MEDS: METOPROLOL TART IMMED RELEASE 25 MG TABLET PO SCH ×2 (08:17→19:38)
[2018-02-28] MEDS: MEMANTINE 10 MG TABLET. PO SCH ×2 (08:17→19:38)
[2018-02-28] MEDS: FLECAINIDE 50 MG TABLET. PO SCH ×2 (08:18→19:38)
[2018-02-28] MEDS: CHOLECALCIFEROL (VITAMIN D3) 50,000 UNIT CAPSULE PO SCH (08:20)
[2018-02-28 08:48] LABS: BASO % 0 % (0-3); EOS # 0.1 x10^3/uL (0.0-0.7); EOS % 2 % (0-3); HEMATOCRIT 41.5 % (39.0-53.0); LYMPH # 1.5 x10^3/uL (1.0-4.8); LYMPH % 25 % (24-48); MEAN CORPUSCULAR HEMOGLOBIN 33 pg (25-35); MEAN CORPUSCULAR HGB CONC 34 g/dL (31-37); MEAN CORPUSCULAR VOLUME 96 fL (79-100); MONO # 0.6 x10^3/uL (0.0-1.1); MONO % 9 % (0-9); NEUT # 3.8 x10^3uL (1.8-7.7); NEUT % 63 % (31-73); PLATELET COUNT 183 x10^3/uL (140-400); RED BLOOD COUNT 4.32 x10^6/uL (4.30-5.70); RED CELL DISTRIBUTION WIDTH 15.4 % (11.5-14.5)
[2018-02-28 09:00] LABS: ALBUMIN 3.4 g/dL (3.4-5.0); CALCIUM 9.2 mg/dL (8.5-10.1); CREATININE 0.9 mg/dL (0.7-1.3); GFR 79.8; TOTAL BILIRUBIN 0.4 mg/dL (0.2-1.0); TOTAL PROTEIN 6.9 g/dL (6.4-8.2)
[2018-02-28 16:01] VITALS: BP 119/78
[2018-02-28] MEDS: TAMSULOSIN 0.4 MG CAP.ER.24H. PO SCH (19:37)
[2018-02-28] MEDS: risperiDONE ORAL 1 MG/ML 30ml BOTTLE. SL SCH (19:38)
--- NOTE | 2018-02-28 22:21 | PDOC ---
Exam Note: Óscar Note: Please also refer to the separate dictated note~for this date of service dictated separately.~Patient seen individually. Discussed the patient with Nursing staff reviewed the chart.~Reviewed interim history and current functioning. Reviewed vital signs,~Labs/ Radiology~and current medications noted below. Continue current treatment with the changes noted in the dictated addendum note Assessment: Vital Signs: Vital Signs Date Time Temp Pulse Resp B/P (MAP) Pulse Ox O2 Delivery O2 Flow Rate FiO2 02/28/18 19:38 56 119/78 02/28/18 16:01 98.3 20 98 02/28/18 06:21 Room Air I&O Intake and Output 02/28/18 07:00 Intake Total 720 ml Balance 720 ml Intake Oral 720 ml Labs: Laboratory Tests Test 02/28/18 08:38 White Blood Count 6.0 x10^3/uL (4.0-11.0) Red Blood Count 4.32 x10^6/uL (4.30-5.70) Hemoglobin 14.0 g/dL (13.0-17.5) Hematocrit 41.5 % (39.0-53.0) Mean Corpuscular Volume 96 fL (79-100) Mean Corpuscular Hemoglobin 33 pg (25-35) Mean Corpuscular Hemoglobin Concent 34 g/dL (31-37) Red Cell Distribution Width 15.4 % (11.5-14.5) H Platelet Count 183 x10^3/uL (140-400) Neutrophils (%) (Auto) 63 % (31-73) Lymphocytes (%) (Auto) 25 % (24-48) Monocytes (%) (Auto) 9 % (0-9) Eosinophils (%) (Auto) 2 % (0-3) Basophils (%) (Auto) 0 % (0-3) Neutrophils # (Auto) 3.8 x10^3uL (1.8-7.7) Lymphocytes # (Auto) 1.5 x10^3/uL (1.0-4.8) Monocytes # (Auto) 0.6 x10^3/uL (0.0-1.1) Eosinophils # (Auto) 0.1 x10^3/uL (0.0-0.7) Basophils # (Auto) 0.0 x10^3/uL (0.0-0.2) Sodium Level 144 mmol/L (136-145) Potassium Level 4.0 mmol/L (3.5-5.1) Chloride Level 105 mmol/L (98-107) Carbon Dioxide Level 32 mmol/L (21-32) Anion Gap 7 (6-14) Blood Urea Nitrogen 15 mg/dL (8-26) Creatinine 0.9 mg/dL (0.7-1.3) Estimated GFR (Cockcroft-Gault) 79.8 BUN/Creatinine Ratio 17 (6-20) Glucose Level 113 mg/dL (70-99) H Calcium Level 9.2 mg/dL (8.5-10.1) Total Bilirubin 0.4 mg/dL (0.2-1.0) Aspartate Amino Transferase (AST) 17 U/L (15-37) Alanine Aminotransferase (ALT) 20 U/L (16-63) Alkaline Phosphatase 77 U/L (46-116) Total Protein 6.9 g/dL (6.4-8.2) Albumin 3.4 g/dL (3.4-5.0) Albumin/Globulin Ratio 1.0 (1.0-1.7) Current Medications: Meds: Current Medications Acetaminophen (Tylenol) 650 mg PRN Q6HRS PRN PO PAIN / TEMP; Start 02/12/18 at 11:15 Multi-Ingredient Ointment (Analgesic [place]) 1 nicole PRN QID PRN TP MUSCLE PAIN; Start 02/12/18 at 11:15 Al Hydroxide/Mg Hydroxide (Mylanta Plus Xs) 15 ml PRN AFTMEALHC PRN PO DYSPEPSIA; Start 02/12/18 at 11:15 Magnesium Hydroxide (Milk Of Magnesia) 2,400 mg PRN QHS PRN PO CONSTIPATION; Start 02/12/18 at 11:15 Acetaminophen (Tylenol) 650 mg PRN Q6HRS PRN PO PAIN; Start 02/12/18 at 12:00; Status Cancel Metoprolol Tartrate (Lopressor) 25 mg BID PO Last administered on 02/28/18at 19: 38; Start 02/12/18 at 21:00 Tamsulosin HCl (Flomax) 0.4 mg HS PO Last administered on 02/28/18at 19:37; Start 02/12/18 at 21:00 Aspirin (Children'S Aspirin) 81 mg DAILYWBKFT PO Last administered on 08:13; Start 02/13/18 at 08:00 Docusate Sodium (Colace) 100 mg BID PO Last administered on 02/28/18 19:37; Start 02/12/18 at 21:00 Flecainide Acetate (Tambocor) 50 mg BID PO Last administered on 02/28/18 19:38 ; Start 02/12/18 at 21:00 Memantine (Namenda) 10 mg BID PO Last administered on 02/28/18 19:38; Start at 21:00 Ketotifen Fumarate (Zaditor) 1 drop BID OU Last administered on 02/24/18 20:26 ; Start 02/12/18 at 21:00; Stop 02/26/18 at 16:34; Status DC Potassium Chloride (Klor-Con) 20 meq DAILYWBKFT PO Last administered on 08:14; Start 02/13/18 at 08:00 Witch Dorothy/ Glycerin (A.e.r Pads) 1 each PRN BID PRN TP hemorrhoids Last administered on 02/15/18 10:00; Start 02/12/18 at 12:00 Lactulose (Lactulose) 10 gm TID PRN PO CONSTIPATION Last administered on 20:22; Start 02/12/18 at 12:00; Stop 02/25/18 at 01:57; Status DC Fluoxetine HCl (PROzac) 10 mg DAILY PO Last administered on 02/16/18 09:08; Start 02/14/18 at 09:00; Stop 02/16/18 at 13:50; Status DC Risperidone (RisperDAL) 0.25 mg HS SL Last administered on 02/28/18 19:38; Start 02/13/18 at 22:30 Vitamin D (Vitamin D3) 50,000 unit WEEKLY PO Last administered on 02/28/18 08: 20; Start 02/14/18 at 13:30 Phenylephrine/ Shark Liver Oil (Preparation H) 1 supp PRN Q8HRS PRN [place] RECTAL PAIN Last administered on 02/15/18 17:28; Start 02/15/18 at 14:45 Fluvoxamine Maleate (Luvox) 25 mg DAILY PO Last administered on 02/18/18at 08:05 ; Start 02/17/18 at 09:00; Stop 02/18/18 at 16:17; Status DC Fluvoxamine Maleate (Luvox) 50 mg DAILY PO Last administered on 02/21/18at 08:12 ; Start 02/19/18 at 09:00; Stop 02/21/18 at 12:00; Status DC Fluvoxamine Maleate (Luvox) 75 mg DAILY PO Last administered on 02/26/18at 08:13 ; Start 02/21/18 at 09:00; Stop 02/26/18 at 09:56; Status DC Lactulose (Lactulose) 10 gm PRN TID PRN PO CONSTIPATION; Start 02/25/18 at 02: 00 Fluvoxamine Maleate (Luvox) 100 mg DAILY PO Last administered on 02/28/18at 08: 17; Start 02/27/18 at 09:00 Ketotifen Fumarate (Zaditor) 1 drop PRN BID PRN OU ALLERGIES; Start 02/26/18 at 16:45 Active Scripts Active Flecainide Acetate 100 Mg Tablet 50 Mg PO Q12HR 90 Days Reported Tucks (Jose L De La Cruz) 1 Each Med..pad 1 Each TP PRN BID PRN Pataday (Olopatadine Hcl) 2.5 Ml Drops 1 Drop EACHEYE BID Metoprolol Tartrate 25 Mg Tablet 25 Mg PO BID Lactulose 10 Gm/15 Ml Solution 10 Gm PO Flecainide Acetate 50 Mg Tablet 50 Mg PO BID Aspirin 81 Mg Tab.chew 81 Mg PO DAILY Risperdal (Risperidone) 0.5 Mg Tablet 0.5 Mg SL QHS Coreg (Carvedilol) 3.125 Mg Tablet 3.125 Mg PO BIDWMEALS Olanzapine 5 Mg Tablet 1.25 Mg PO PRN PRN MDD 5mg/24hrs Namenda (Memantine Hcl) 10 Mg Tablet 10 Mg PO BID Prozac (Fluoxetine Hcl) 40 Mg Capsule 40 Mg PO DAILY Flomax (Tamsulosin Hcl) 0.4 Mg Cap.er.24h 4.6 Mg PO HS Zaditor (Ketotifen Fumarate) 5 Ml Drops 1 Drop EACHEYE BID Vitamin D3 (Cholecalciferol (Vitamin D3)) 5,000 Unit Tablet 50,000 Unit PO WEEKLY FRIDAY Tylenol (Acetaminophen) 325 Mg Tablet 650 Mg PO PRN Q6HRS PRN Colace (Docusate Sodium) 100 Mg Capsule 1 Cap PO BID Potassium Chloride Oral Liquid (Potassium Chloride) 20 Meq/15 Ml Liquid 20 Meq PO DAILY LAST DOSE GIVEN: DATE: TIME: NEXT DOSE DUE: DATE: TIME: I have reviewed the current psychotropics carefully including drug interactions. Risk benefit ratio favors no change other than as noted in my dictated progress note. Diagnosis: Problems: (1) Anxiety disorder (2) Mild cognitive disorder (3) Impulse control disorder (4) Major depressive disorder, recurrent episode (5) Syncopal episodes (6) Weakness (7) PSVT (paroxysmal supraventricular tachycardia) (8) Cardiac syncope (9) Suicidal ideation CHELSEA RINCON MD Feb 28, 2018 22:21
[2018-03-01 05:57] VITALS: BP 141/79
[2018-03-01] MEDS: POTASSIUM CHLORIDE 20 MEQ TABLET.ER. PO SCH (08:09)
[2018-03-01] MEDS: ASPIRIN 81 MG TAB.CHEW PO SCH (08:09)
[2018-03-01] MEDS: DOCUSATE SODIUM 100 MG CAPSULE PO SCH ×2 (08:10→19:59)
[2018-03-01] MEDS: METOPROLOL TART IMMED RELEASE 25 MG TABLET PO SCH ×2 (08:10→20:00)
[2018-03-01] MEDS: MEMANTINE 10 MG TABLET. PO SCH ×2 (08:11→20:00)
[2018-03-01] MEDS: FLECAINIDE 50 MG TABLET. PO SCH ×2 (08:11→20:01)
[2018-03-01 16:26] VITALS: BP 126/75
--- NOTE | 2018-03-01 19:58 | PDOC ---
Exam Note: Óscar Note: Please also refer to the separate dictated note~for this date of service dictated separately.~Patient seen individually. Discussed the patient with Nursing staff reviewed the chart.~Reviewed interim history and current functioning. Reviewed vital signs,~Labs/ Radiology~and current medications noted below. Continue current treatment with the changes noted in the dictated addendum note Assessment: Vital Signs: Vital Signs Date Time Temp Pulse Resp B/P (MAP) Pulse Ox O2 Delivery O2 Flow Rate FiO2 03/01/18 16:26 98.0 58 16 126/75 (92) 97 03/01/18 05:57 Room Air I&O Intake and Output 03/01/18 07:00 Intake Total 660 ml Balance 660 ml Intake Oral 660 ml Current Medications: Meds: Current Medications Acetaminophen (Tylenol) 650 mg PRN Q6HRS PRN PO PAIN / TEMP; Start 02/12/18 at 11:15 Multi-Ingredient Ointment (Analgesic [place]) 1 nicole PRN QID PRN TP MUSCLE PAIN; Start 02/12/18 at 11:15 Al Hydroxide/Mg Hydroxide (Mylanta Plus Xs) 15 ml PRN AFTMEALHC PRN PO DYSPEPSIA; Start 02/12/18 at 11:15 Magnesium Hydroxide (Milk Of Magnesia) 2,400 mg PRN QHS PRN PO CONSTIPATION; Start 02/12/18 at 11:15 Acetaminophen (Tylenol) 650 mg PRN Q6HRS PRN PO PAIN; Start 02/12/18 at 12:00; Status Cancel Metoprolol Tartrate (Lopressor) 25 mg BID PO Last administered on 03/01/18at 08: 10; Start 02/12/18 at 21:00 Tamsulosin HCl (Flomax) 0.4 mg HS PO Last administered on 02/28/18at 19:37; Start 02/12/18 at 21:00 Aspirin (Children'S Aspirin) 81 mg DAILYWBKFT PO Last administered on at 08:09; Start 02/13/18 at 08:00 Docusate Sodium (Colace) 100 mg BID PO Last administered on 03/01/18at 08:10; Start 02/12/18 at 21:00 Flecainide Acetate (Tambocor) 50 mg BID PO Last administered on 03/01/18at 08:11 ; Start 02/12/18 at 21:00 Memantine (Namenda) 10 mg BID PO Last administered on 03/01/18 08:11; Start at 21:00 Ketotifen Fumarate (Zaditor) 1 drop BID OU Last administered on 02/24/18at 20:26 ; Start 02/12/18 at 21:00; Stop 02/26/18 at 16:34; Status DC Potassium Chloride (Klor-Con) 20 meq DAILYWBKFT PO Last administered on 08:09; Start 02/13/18 at 08:00 Witch Dorothy/ Glycerin (A.e.r Pads) 1 each PRN BID PRN TP hemorrhoids Last administered on 02/15/18 10:00; Start 02/12/18 at 12:00 Lactulose (Lactulose) 10 gm TID PRN PO CONSTIPATION Last administered on 20:22; Start 02/12/18 at 12:00; Stop 02/25/18 at 01:57; Status DC Fluoxetine HCl (PROzac) 10 mg DAILY PO Last administered on 02/16/18 09:08; Start 02/14/18 at 09:00; Stop 02/16/18 at 13:50; Status DC Risperidone (RisperDAL) 0.25 mg HS SL Last administered on 02/28/18 19:38; Start 02/13/18 at 22:30 Vitamin D (Vitamin D3) 50,000 unit WEEKLY PO Last administered on 02/28/18 08: 20; Start 02/14/18 at 13:30 Phenylephrine/ Shark Liver Oil (Preparation H) 1 supp PRN Q8HRS PRN [place] RECTAL PAIN Last administered on 02/15/18 17:28; Start 02/15/18 at 14:45 Fluvoxamine Maleate (Luvox) 25 mg DAILY PO Last administered on 02/18/18 08:05 ; Start 02/17/18 at 09:00; Stop 02/18/18 at 16:17; Status DC Fluvoxamine Maleate (Luvox) 50 mg DAILY PO Last administered on 02/21/18 08:12 ; Start 02/19/18 at 09:00; Stop 02/21/18 at 12:00; Status DC Fluvoxamine Maleate (Luvox) 75 mg DAILY PO Last administered on 02/26/18at 08:13 ; Start 02/21/18 at 09:00; Stop 02/26/18 at 09:56; Status DC Lactulose (Lactulose) 10 gm PRN TID PRN PO CONSTIPATION; Start 02/25/18 at 02: 00 Fluvoxamine Maleate (Luvox) 100 mg DAILY PO Last administered on 03/01/18at 08: 11; Start 02/27/18 at 09:00 Ketotifen Fumarate (Zaditor) 1 drop PRN BID PRN OU ALLERGIES; Start 02/26/18 at 16:45 Active Scripts Active Flecainide Acetate 100 Mg Tablet 50 Mg PO Q12HR 90 Days Reported Kevins (Jose L De La Cruz) 1 Each Med..pad 1 Each TP PRN BID PRN Pataday (Olopatadine Hcl) 2.5 Ml Drops 1 Drop EACHEYE BID Metoprolol Tartrate 25 Mg Tablet 25 Mg PO BID Lactulose 10 Gm/15 Ml Solution 10 Gm PO Flecainide Acetate 50 Mg Tablet 50 Mg PO BID Aspirin 81 Mg Tab.chew 81 Mg PO DAILY Risperdal (Risperidone) 0.5 Mg Tablet 0.5 Mg SL QHS Coreg (Carvedilol) 3.125 Mg Tablet 3.125 Mg PO BIDWMEALS Olanzapine 5 Mg Tablet 1.25 Mg PO PRN PRN MDD 5mg/24hrs Namenda (Memantine Hcl) 10 Mg Tablet 10 Mg PO BID Prozac (Fluoxetine Hcl) 40 Mg Capsule 40 Mg PO DAILY Flomax (Tamsulosin Hcl) 0.4 Mg Cap.er.24h 4.6 Mg PO HS Zaditor (Ketotifen Fumarate) 5 Ml Drops 1 Drop EACHEYE BID Vitamin D3 (Cholecalciferol (Vitamin D3)) 5,000 Unit Tablet 50,000 Unit PO WEEKLY FRIDAY Tylenol (Acetaminophen) 325 Mg Tablet 650 Mg PO PRN Q6HRS PRN Colace (Docusate Sodium) 100 Mg Capsule 1 Cap PO BID Potassium Chloride Oral Liquid (Potassium Chloride) 20 Meq/15 Ml Liquid 20 Meq PO DAILY LAST DOSE GIVEN: DATE: TIME: NEXT DOSE DUE: DATE: TIME: I have reviewed the current psychotropics carefully including drug interactions. Risk benefit ratio favors no change other than as noted in my dictated progress note. Diagnosis: Problems: (1) Anxiety disorder (2) Mild cognitive disorder (3) Impulse control disorder (4) Major depressive disorder, recurrent episode (5) Syncopal episodes (6) Weakness (7) PSVT (paroxysmal supraventricular tachycardia) (8) Cardiac syncope (9) Suicidal ideation CHELSEA RINCON MD Mar 01, 2018 19:58
--- NOTE | 2018-03-01 19:58 | PDOC ---
Exam Note: Óscar Note: Late entry for date of service February.Please also refer to the separate dictated note~for this date of service dictated separately.~Patient seen individually. Discussed the patient with Nursing staff reviewed the chart.~ Reviewed interim history and current functioning. Reviewed vital signs,~Labs/ Radiology~and current medications noted below. Continue current treatment with the changes noted in the dictated addendum note Assessment: Vital Signs: VS - Last 72 Hours, by Label Date Time Temp Pulse Resp B/P (MAP) Pulse Ox O2 Delivery O2 Flow Rate FiO2 03/01/18 16:26 98.0 58 16 126/75 (92) 97 03/01/18 08:11 88 141/79 03/01/18 08:10 88 141/79 03/01/18 05:57 97.8 88 20 141/79 (99) 98 Room Air 02/28/18 19:38 56 119/78 02/28/18 19:38 56 119/78 02/28/18 16:01 98.3 56 20 119/78 (92) 98 02/28/18 08:18 58 146/81 02/28/18 08:17 58 146/81 02/28/18 06:21 98.8 54 16 123/77 (92) 97 Room Air 02/27/18 19:49 56 123/66 02/27/18 19:48 56 123/66 02/27/18 16:32 97.7 56 16 123/66 (85) 94 Room Air 02/27/18 08:09 53 140/82 02/27/18 08:08 53 140/82 02/27/18 05:50 97.0 53 16 140/82 (101) 97 02/26/18 20:02 55 136/59 02/26/18 20:00 55 136/59 Vital Signs Date Time Temp Pulse Resp B/P (MAP) Pulse Ox O2 Delivery O2 Flow Rate FiO2 03/01/18 16:26 98.0 58 16 126/75 (92) 97 03/01/18 05:57 Room Air I&O Intake and Output 03/01/18 07:00 Intake Total 660 ml Balance 660 ml Intake Oral 660 ml Current Medications: Meds: Current Medications Acetaminophen (Tylenol) 650 mg PRN Q6HRS PRN PO PAIN / TEMP; Start 02/12/18 at 11:15 Multi-Ingredient Ointment (Analgesic [place]) 1 nicole PRN QID PRN TP MUSCLE PAIN; Start 02/12/18 at 11:15 Al Hydroxide/Mg Hydroxide (Mylanta Plus Xs) 15 ml PRN AFTMEALHC PRN PO DYSPEPSIA; Start 02/12/18 at 11:15 Magnesium Hydroxide (Milk Of Magnesia) 2,400 mg PRN QHS PRN PO CONSTIPATION; Start 02/12/18 at 11:15 Acetaminophen (Tylenol) 650 mg PRN Q6HRS PRN PO PAIN; Start 02/12/18 at 12:00; Status Cancel Metoprolol Tartrate (Lopressor) 25 mg BID PO Last administered on 03/01/18 08: 10; Start 02/12/18 at 21:00 Tamsulosin HCl (Flomax) 0.4 mg HS PO Last administered on 02/28/18at 19:37; Start 02/12/18 at 21:00 Aspirin (Children'S Aspirin) 81 mg DAILYWBKFT PO Last administered on at 08:09; Start 02/13/18 at 08:00 Docusate Sodium (Colace) 100 mg BID PO Last administered on 03/01/18 08:10; Start 02/12/18 at 21:00 Flecainide Acetate (Tambocor) 50 mg BID PO Last administered on 03/01/18at 08:11 ; Start 02/12/18 at 21:00 Memantine (Namenda) 10 mg BID PO Last administered on 03/01/18at 08:11; Start at 21:00 Ketotifen Fumarate (Zaditor) 1 drop BID OU Last administered on 02/24/18at 20:26 ; Start 02/12/18 at 21:00; Stop 02/26/18 at 16:34; Status DC Potassium Chloride (Klor-Con) 20 meq DAILYWBKFT PO Last administered on at 08:09; Start 02/13/18 at 08:00 Witch [place]/ Glycerin (A.e.r Pads) 1 each PRN BID PRN TP hemorrhoids Last administered on 02/15/18at 10:00; Start 02/12/18 at 12:00 Lactulose (Lactulose) 10 gm TID PRN PO CONSTIPATION Last administered on 20:22; Start 02/12/18 at 12:00; Stop 02/25/18 at 01:57; Status DC Fluoxetine HCl (PROzac) 10 mg DAILY PO Last administered on 02/16/18at 09:08; Start 02/14/18 at 09:00; Stop 02/16/18 at 13:50; Status DC Risperidone (RisperDAL) 0.25 mg HS SL Last administered on 02/28/18 19:38; Start 02/13/18 at 22:30 Vitamin D (Vitamin D3) 50,000 unit WEEKLY PO Last administered on 02/28/18 08: 20; Start 02/14/18 at 13:30 Phenylephrine/ Shark Liver Oil (Preparation H) 1 supp PRN Q8HRS PRN [place] RECTAL PAIN Last administered on 02/15/18 17:28; Start 02/15/18 at 14:45 Fluvoxamine Maleate (Luvox) 25 mg DAILY PO Last administered on 02/18/18at 08:05 ; Start 02/17/18 at 09:00; Stop 02/18/18 at 16:17; Status DC Fluvoxamine Maleate (Luvox) 50 mg DAILY PO Last administered on 02/21/18at 08:12 ; Start 02/19/18 at 09:00; Stop 02/21/18 at 12:00; Status DC Fluvoxamine Maleate (Luvox) 75 mg DAILY PO Last administered on 02/26/18at 08:13 ; Start 02/21/18 at 09:00; Stop 02/26/18 at 09:56; Status DC Lactulose (Lactulose) 10 gm PRN TID PRN PO CONSTIPATION; Start 02/25/18 at 02: 00 Fluvoxamine Maleate (Luvox) 100 mg DAILY PO Last administered on 03/01/18at 08: 11; Start 02/27/18 at 09:00 Ketotifen Fumarate (Zaditor) 1 drop PRN BID PRN OU ALLERGIES; Start 02/26/18 at 16:45 Active Scripts Active Flecainide Acetate 100 Mg Tablet 50 Mg PO Q12HR 90 Days Reported Tucks (Witch Dorothy) 1 Each Med..pad 1 Each TP PRN BID PRN Pataday (Olopatadine Hcl) 2.5 Ml Drops 1 Drop EACHEYE BID Metoprolol Tartrate 25 Mg Tablet 25 Mg PO BID Lactulose 10 Gm/15 Ml Solution 10 Gm PO Flecainide Acetate 50 Mg Tablet 50 Mg PO BID Aspirin 81 Mg Tab.chew 81 Mg PO DAILY Risperdal (Risperidone) 0.5 Mg Tablet 0.5 Mg SL QHS Coreg (Carvedilol) 3.125 Mg Tablet 3.125 Mg PO BIDWMEALS Olanzapine 5 Mg Tablet 1.25 Mg PO PRN PRN MDD 5mg/24hrs Namenda (Memantine Hcl) 10 Mg Tablet 10 Mg PO BID Prozac (Fluoxetine Hcl) 40 Mg Capsule 40 Mg PO DAILY Flomax (Tamsulosin Hcl) 0.4 Mg Cap.er.24h 4.6 Mg PO HS Zaditor (Ketotifen Fumarate) 5 Ml Drops 1 Drop EACHEYE BID Vitamin D3 (Cholecalciferol (Vitamin D3)) 5,000 Unit Tablet 50,000 Unit PO WEEKLY FRIDAY Tylenol (Acetaminophen) 325 Mg Tablet 650 Mg PO PRN Q6HRS PRN Colace (Docusate Sodium) 100 Mg Capsule 1 Cap PO BID Potassium Chloride Oral Liquid (Potassium Chloride) 20 Meq/15 Ml Liquid 20 Meq PO DAILY LAST DOSE GIVEN: DATE: TIME: NEXT DOSE DUE: DATE: TIME: I have reviewed the current psychotropics carefully including drug interactions. Risk benefit ratio favors no change other than as noted in my dictated progress note. Diagnosis: Problems: (1) Anxiety disorder (2) Mild cognitive disorder (3) Impulse control disorder (4) Major depressive disorder, recurrent episode (5) Syncopal episodes (6) Weakness (7) PSVT (paroxysmal supraventricular tachycardia) (8) Cardiac syncope (9) Suicidal ideation CHELSEA RINCON MD Mar 01, 2018 19:58
[2018-03-01] MEDS: TAMSULOSIN 0.4 MG CAP.ER.24H. PO SCH (19:59)
[2018-03-01] MEDS: risperiDONE ORAL 1 MG/ML 30ml BOTTLE. SL SCH (20:01)
--- NOTE | 2018-03-02 01:41 | PN ---
DATE: 02/27/2018 This is a late entry of 02/27/2018, covers elements not covered in my initial note. SUBJECTIVE: I met with the patient in the evening. The patient remains somewhat obsessed with his bowels. No bowel movement since the . Slept 6-1/2 hours. REVIEW OF SYSTEMS: No CV, , pulmonary, eye, ENT system symptoms on review other than above. MENTAL STATUS EXAM: Reasonably oriented to himself and situation. Speech has some latency, coherent, low in volume. Abstraction fair, computation impaired, language function intact. Mood and affect remain somewhat withdrawn. LABORATORY DATA: Reviewed. IMPRESSION: Unchanged from initial note. PLAN: No change from initial note, may need to increase Luvox further if OCD symptoms persist. MAN Huan RINCON MD DR: SHAZIA/shanta JOB#: [id number] / [id number]
[2018-03-02 05:30] VITALS: BP 108/67
[2018-03-02] MEDS: POTASSIUM CHLORIDE 20 MEQ TABLET.ER. PO SCH (09:27)
[2018-03-02] MEDS: DOCUSATE SODIUM 100 MG CAPSULE PO SCH ×2 (09:27→20:05)
[2018-03-02] MEDS: MEMANTINE 10 MG TABLET. PO SCH ×2 (09:28→20:05)
[2018-03-02] MEDS: ASPIRIN 81 MG TAB.CHEW PO SCH (09:28)
[2018-03-02] MEDS: FLECAINIDE 50 MG TABLET. PO SCH ×2 (09:31→20:06)
[2018-03-02] MEDS: METOPROLOL TART IMMED RELEASE 25 MG TABLET PO SCH ×2 (09:31→20:17)
[2018-03-02] MEDS: LACTULOSE 20 GM/30 ML SOLUTION. PO PRN (09:44)
[2018-03-02 15:38] VITALS: BP 136/79
[2018-03-02] MEDS: TAMSULOSIN 0.4 MG CAP.ER.24H. PO SCH (20:05)
[2018-03-02] MEDS: risperiDONE ORAL 1 MG/ML 30ml BOTTLE. SL SCH (20:05)
--- NOTE | 2018-03-02 20:49 | PDOC ---
Exam Note: Óscar Note: Please also refer to the separate dictated note~for this date of service dictated separately.~Patient seen individually. Discussed the patient with Nursing staff reviewed the chart.~Reviewed interim history and current functioning. Reviewed vital signs,~Labs/ Radiology~and current medications noted below. Continue current treatment with the changes noted in the dictated addendum note Assessment: Vital Signs: Vital Signs Date Time Temp Pulse Resp B/P (MAP) Pulse Ox O2 Delivery O2 Flow Rate FiO2 03/02/18 20:17 58 136/79 03/02/18 15:38 97.8 16 96 Room Air I&O Intake and Output 03/02/18 07:00 Intake Total 600 ml Balance 600 ml Intake Oral 600 ml Current Medications: Meds: Current Medications Acetaminophen (Tylenol) 650 mg PRN Q6HRS PRN PO PAIN / TEMP; Start 02/12/18 at 11:15 Multi-Ingredient Ointment (Analgesic [place]) 1 nicole PRN QID PRN TP MUSCLE PAIN; Start 02/12/18 at 11:15 Al Hydroxide/Mg Hydroxide (Mylanta Plus Xs) 15 ml PRN AFTMEALHC PRN PO DYSPEPSIA; Start 02/12/18 at 11:15 Magnesium Hydroxide (Milk Of Magnesia) 2,400 mg PRN QHS PRN PO CONSTIPATION; Start 02/12/18 at 11:15 Acetaminophen (Tylenol) 650 mg PRN Q6HRS PRN PO PAIN; Start 02/12/18 at 12:00; Status Cancel Metoprolol Tartrate (Lopressor) 25 mg BID PO Last administered on 03/02/18at 20: 17; Start 02/12/18 at 21:00 Tamsulosin HCl (Flomax) 0.4 mg HS PO Last administered on 03/02/18at 20:05; Start 02/12/18 at 21:00 Aspirin (Children'S Aspirin) 81 mg DAILYWBKFT PO Last administered on at 09:28; Start 02/13/18 at 08:00 Docusate Sodium (Colace) 100 mg BID PO Last administered on 03/02/18at 20:05; Start 02/12/18 at 21:00 Flecainide Acetate (Tambocor) 50 mg BID PO Last administered on 03/02/18at 20:06 ; Start 02/12/18 at 21:00 Memantine (Namenda) 10 mg BID PO Last administered on 03/02/18 20:05; Start at 21:00 Ketotifen Fumarate (Zaditor) 1 drop BID OU Last administered on 02/24/18at 20:26 ; Start 02/12/18 at 21:00; Stop 02/26/18 at 16:34; Status DC Potassium Chloride (Klor-Con) 20 meq DAILYWBKFT PO Last administered on at 09:27; Start 02/13/18 at 08:00 Witch [place]/ Glycerin (A.e.r Pads) 1 each PRN BID PRN TP hemorrhoids Last administered on 02/15/18 10:00; Start 02/12/18 at 12:00 Lactulose (Lactulose) 10 gm TID PRN PO CONSTIPATION Last administered on 20:22; Start 02/12/18 at 12:00; Stop 02/25/18 at 01:57; Status DC Fluoxetine HCl (PROzac) 10 mg DAILY PO Last administered on 02/16/18 09:08; Start 02/14/18 at 09:00; Stop 02/16/18 at 13:50; Status DC Risperidone (RisperDAL) 0.25 mg HS SL Last administered on 03/02/18 20:05; Start 02/13/18 at 22:30 Vitamin D (Vitamin D3) 50,000 unit WEEKLY PO Last administered on 02/28/18 08: 20; Start 02/14/18 at 13:30 Phenylephrine/ Shark Liver Oil (Preparation H) 1 supp PRN Q8HRS PRN [place] RECTAL PAIN Last administered on 02/15/18 17:28; Start 02/15/18 at 14:45 Fluvoxamine Maleate (Luvox) 25 mg DAILY PO Last administered on 02/18/18 08:05 ; Start 02/17/18 at 09:00; Stop 02/18/18 at 16:17; Status DC Fluvoxamine Maleate (Luvox) 50 mg DAILY PO Last administered on 02/21/18at 08:12 ; Start 02/19/18 at 09:00; Stop 02/21/18 at 12:00; Status DC Fluvoxamine Maleate (Luvox) 75 mg DAILY PO Last administered on 02/26/18at 08:13 ; Start 02/21/18 at 09:00; Stop 02/26/18 at 09:56; Status DC Lactulose (Lactulose) 10 gm PRN TID PRN PO CONSTIPATION Last administered on at 09:44; Start 02/25/18 at 02:00 Fluvoxamine Maleate (Luvox) 100 mg DAILY PO Last administered on 03/02/18at 09: 27; Start 02/27/18 at 09:00 Ketotifen Fumarate (Zaditor) 1 drop PRN BID PRN OU ALLERGIES; Start 02/26/18 at 16:45 Active Scripts Active Flecainide Acetate 100 Mg Tablet 50 Mg PO Q12HR 90 Days Reported Tucks (Jose L De La Cruz) 1 Each Med..pad 1 Each TP PRN BID PRN Pataday (Olopatadine Hcl) 2.5 Ml Drops 1 Drop EACHEYE BID Metoprolol Tartrate 25 Mg Tablet 25 Mg PO BID Lactulose 10 Gm/15 Ml Solution 10 Gm PO Flecainide Acetate 50 Mg Tablet 50 Mg PO BID Aspirin 81 Mg Tab.chew 81 Mg PO DAILY Risperdal (Risperidone) 0.5 Mg Tablet 0.5 Mg SL QHS Coreg (Carvedilol) 3.125 Mg Tablet 3.125 Mg PO BIDWMEALS Olanzapine 5 Mg Tablet 1.25 Mg PO PRN PRN MDD 5mg/24hrs Namenda (Memantine Hcl) 10 Mg Tablet 10 Mg PO BID Prozac (Fluoxetine Hcl) 40 Mg Capsule 40 Mg PO DAILY Flomax (Tamsulosin Hcl) 0.4 Mg Cap.er.24h 4.6 Mg PO HS Zaditor (Ketotifen Fumarate) 5 Ml Drops 1 Drop EACHEYE BID Vitamin D3 (Cholecalciferol (Vitamin D3)) 5,000 Unit Tablet 50,000 Unit PO WEEKLY FRIDAY Tylenol (Acetaminophen) 325 Mg Tablet 650 Mg PO PRN Q6HRS PRN Colace (Docusate Sodium) 100 Mg Capsule 1 Cap PO BID Potassium Chloride Oral Liquid (Potassium Chloride) 20 Meq/15 Ml Liquid 20 Meq PO DAILY LAST DOSE GIVEN: DATE: TIME: NEXT DOSE DUE: DATE: TIME: I have reviewed the current psychotropics carefully including drug interactions. Risk benefit ratio favors no change other than as noted in my dictated progress note. Diagnosis: Problems: (1) Anxiety disorder (2) Mild cognitive disorder (3) Impulse control disorder (4) Major depressive disorder, recurrent episode (5) Syncopal episodes (6) Weakness (7) PSVT (paroxysmal supraventricular tachycardia) (8) Cardiac syncope (9) Suicidal ideation CHELSEA RINCON MD Mar 02, 2018 20:49
--- NOTE | 2018-03-03 04:36 | PN ---
DATE: 02/28/2018 PSYCHIATRIC PROGRESS NOTE This is a late entry for 02/28/2018, covers elements not covered in my initial note. SUBJECTIVE: I met with the patient in the evening of 02/28/2018. The patient remains somewhat withdrawn, spends much time in his room, but compliant with medications. His labs are unremarkable. He remains a little obsessive regarding toileting, but better than before and he does have some constipation, which could partially account for it. REVIEW OF SYSTEMS: No CV, , pulmonary, eye, ENT system symptoms on review. MENTAL STATUS EXAM: Oriented to himself and situation. Speech moderate latency, often responses monosyllabic. Abstraction fair, computation impaired, language function intact, attention span short. Mood and affect somewhat withdrawn, but better than before. LABORATORY DATA: Reviewed. IMPRESSION: Unchanged from initial note. PLAN: No change from initial note. MAN Huan RINCON MD DR: SHAZIA/shanta JOB#: [id number] / [id number]
--- NOTE | 2018-03-03 04:39 | PN ---
DATE: 03/01/2018 PSYCHIATRIC PROGRESS NOTE This is a late entry of 03/01/2018 covers elements not covered in my initial note. SUBJECTIVE: I met with the patient in the evening. Overall, the patient has been calm, cooperative with meds, somewhat withdrawn, slept 7 hours previous evening. REVIEW OF SYSTEMS: No CV, , pulmonary, eye, ENT system symptoms on review. MENTAL STATUS EXAM: Oriented to himself and situation. Speech is coherent, has some latency. Abstraction fair, computation impaired, language function intact. Mood and affect showing improvement. LABORATORY DATA: Reviewed. IMPRESSION: Unchanged from initial note. PLAN: No change from initial note. CHELSEA RNICON MD DR: SHAZIA/shanta JOB#: [id number] / [id number]
[2018-03-03 05:32] VITALS: BP 122/78
[2018-03-03] MEDS: ASPIRIN 81 MG TAB.CHEW PO SCH (08:51)
[2018-03-03] MEDS: POTASSIUM CHLORIDE 20 MEQ TABLET.ER. PO SCH (08:51)
[2018-03-03] MEDS: DOCUSATE SODIUM 100 MG CAPSULE PO SCH ×2 (08:52→19:47)
[2018-03-03] MEDS: MEMANTINE 10 MG TABLET. PO SCH ×2 (08:53→19:47)
[2018-03-03] MEDS: METOPROLOL TART IMMED RELEASE 25 MG TABLET PO SCH ×2 (09:00→19:47)
[2018-03-03] MEDS: FLECAINIDE 50 MG TABLET. PO SCH ×2 (09:00→19:49)
[2018-03-03 16:03] VITALS: BP 124/77
[2018-03-03] MEDS: TAMSULOSIN 0.4 MG CAP.ER.24H. PO SCH (19:47)
[2018-03-03] MEDS: risperiDONE ORAL 1 MG/ML 30ml BOTTLE. SL SCH (19:49)
--- NOTE | 2018-03-03 20:59 | PDOC ---
Exam Note: Óscar Note: Please also refer to the separate dictated note~for this date of service dictated separately.~Patient seen individually. Discussed the patient with Nursing staff reviewed the chart.~Reviewed interim history and current functioning. Reviewed vital signs,~Labs/ Radiology~and current medications noted below. Continue current treatment with the changes noted in the dictated addendum note Assessment: Vital Signs: Vital Signs Date Time Temp Pulse Resp B/P (MAP) Pulse Ox O2 Delivery O2 Flow Rate FiO2 03/03/18 19:49 58 124/77 03/03/18 16:03 98.3 16 97 03/02/18 15:38 Room Air I&O Intake and Output 03/03/18 07:00 Intake Total 960 ml Balance 960 ml Intake Oral 960 ml Current Medications: Meds: Current Medications Acetaminophen (Tylenol) 650 mg PRN Q6HRS PRN PO PAIN / TEMP; Start 02/12/18 at 11:15 Multi-Ingredient Ointment (Analgesic [place]) 1 nicole PRN QID PRN TP MUSCLE PAIN; Start 02/12/18 at 11:15 Al Hydroxide/Mg Hydroxide (Mylanta Plus Xs) 15 ml PRN AFTMEALHC PRN PO DYSPEPSIA; Start 02/12/18 at 11:15 Magnesium Hydroxide (Milk Of Magnesia) 2,400 mg PRN QHS PRN PO CONSTIPATION; Start 02/12/18 at 11:15 Acetaminophen (Tylenol) 650 mg PRN Q6HRS PRN PO PAIN; Start 02/12/18 at 12:00; Status Cancel Metoprolol Tartrate (Lopressor) 25 mg BID PO Last administered on 03/02/18at 20: 17; Start 02/12/18 at 21:00 Tamsulosin HCl (Flomax) 0.4 mg HS PO Last administered on 03/03/18at 19:47; Start 02/12/18 at 21:00 Aspirin (Children'S Aspirin) 81 mg DAILYWBKFT PO Last administered on at 08:51; Start 02/13/18 at 08:00 Docusate Sodium (Colace) 100 mg BID PO Last administered on 03/03/18 19:47; Start 02/12/18 at 21:00 Flecainide Acetate (Tambocor) 50 mg BID PO Last administered on 03/03/18 19:49 ; Start 02/12/18 at 21:00 Memantine (Namenda) 10 mg BID PO Last administered on 03/03/18 19:47; Start at 21:00 Ketotifen Fumarate (Zaditor) 1 drop BID OU Last administered on 02/24/18 20:26 ; Start 02/12/18 at 21:00; Stop 02/26/18 at 16:34; Status DC Potassium Chloride (Klor-Con) 20 meq DAILYWBKFT PO Last administered on 08:51; Start 02/13/18 at 08:00 Witch Dorothy/ Glycerin (A.e.r Pads) 1 each PRN BID PRN TP hemorrhoids Last administered on 02/15/18 10:00; Start 02/12/18 at 12:00 Lactulose (Lactulose) 10 gm TID PRN PO CONSTIPATION Last administered on 20:22; Start 02/12/18 at 12:00; Stop 02/25/18 at 01:57; Status DC Fluoxetine HCl (PROzac) 10 mg DAILY PO Last administered on 02/16/18 09:08; Start 02/14/18 at 09:00; Stop 02/16/18 at 13:50; Status DC Risperidone (RisperDAL) 0.25 mg HS SL Last administered on 03/03/18 19:49; Start 02/13/18 at 22:30 Vitamin D (Vitamin D3) 50,000 unit WEEKLY PO Last administered on 02/28/18 08: 20; Start 02/14/18 at 13:30 Phenylephrine/ Shark Liver Oil (Preparation H) 1 supp PRN Q8HRS PRN [place] RECTAL PAIN Last administered on 02/15/18 17:28; Start 02/15/18 at 14:45 Fluvoxamine Maleate (Luvox) 25 mg DAILY PO Last administered on 02/18/18 08:05 ; Start 02/17/18 at 09:00; Stop 02/18/18 at 16:17; Status DC Fluvoxamine Maleate (Luvox) 50 mg DAILY PO Last administered on 02/21/18 08:12 ; Start 02/19/18 at 09:00; Stop 02/21/18 at 12:00; Status DC Fluvoxamine Maleate (Luvox) 75 mg DAILY PO Last administered on 02/26/18at 08:13 ; Start 02/21/18 at 09:00; Stop 02/26/18 at 09:56; Status DC Lactulose (Lactulose) 10 gm PRN TID PRN PO CONSTIPATION Last administered on at 09:44; Start 02/25/18 at 02:00 Fluvoxamine Maleate (Luvox) 100 mg DAILY PO Last administered on 03/03/18at 08: 53; Start 02/27/18 at 09:00 Ketotifen Fumarate (Zaditor) 1 drop PRN BID PRN OU ALLERGIES; Start 02/26/18 at 16:45 Active Scripts Active Flecainide Acetate 100 Mg Tablet 50 Mg PO Q12HR 90 Days Reported Srinivascks (Jose L De La Cruz) 1 Each Med..pad 1 Each TP PRN BID PRN Pataday (Olopatadine Hcl) 2.5 Ml Drops 1 Drop EACHEYE BID Metoprolol Tartrate 25 Mg Tablet 25 Mg PO BID Lactulose 10 Gm/15 Ml Solution 10 Gm PO Flecainide Acetate 50 Mg Tablet 50 Mg PO BID Aspirin 81 Mg Tab.chew 81 Mg PO DAILY Risperdal (Risperidone) 0.5 Mg Tablet 0.5 Mg SL QHS Coreg (Carvedilol) 3.125 Mg Tablet 3.125 Mg PO BIDWMEALS Olanzapine 5 Mg Tablet 1.25 Mg PO PRN PRN MDD 5mg/24hrs Namenda (Memantine Hcl) 10 Mg Tablet 10 Mg PO BID Prozac (Fluoxetine Hcl) 40 Mg Capsule 40 Mg PO DAILY Flomax (Tamsulosin Hcl) 0.4 Mg Cap.er.24h 4.6 Mg PO HS Zaditor (Ketotifen Fumarate) 5 Ml Drops 1 Drop EACHEYE BID Vitamin D3 (Cholecalciferol (Vitamin D3)) 5,000 Unit Tablet 50,000 Unit PO WEEKLY FRIDAY Tylenol (Acetaminophen) 325 Mg Tablet 650 Mg PO PRN Q6HRS PRN Colace (Docusate Sodium) 100 Mg Capsule 1 Cap PO BID Potassium Chloride Oral Liquid (Potassium Chloride) 20 Meq/15 Ml Liquid 20 Meq PO DAILY LAST DOSE GIVEN: DATE: TIME: NEXT DOSE DUE: DATE: TIME: I have reviewed the current psychotropics carefully including drug interactions. Risk benefit ratio favors no change other than as noted in my dictated progress note. Diagnosis: Problems: (1) Anxiety disorder (2) Mild cognitive disorder (3) Impulse control disorder (4) Major depressive disorder, recurrent episode (5) Syncopal episodes (6) Weakness (7) PSVT (paroxysmal supraventricular tachycardia) (8) Cardiac syncope (9) Suicidal ideation CHELSEA RINCON MD Mar 03, 2018 20:59
--- NOTE | 2018-03-03 23:10 | PN ---
DATE: 03/02/2018 PSYCHIATRIC PROGRESS NOTE This is a late entry 03/02/2018 covers elements not covered in my initial note. SUBJECTIVE: I met with the patient in the evening. The patient slept 6-1/4 hours previous evening. He has some hypoactive bowel sounds and started on lactulose per Dr. Ochoa. He remains somewhat bowel obsessed with some of this may be understandable. REVIEW OF SYSTEMS: No CV, , pulmonary, eye system symptoms on review. He does come out of his room more than before. MENTAL STATUS EXAM: Oriented to himself and situation. Speech is coherent, has some latency, low in volume. Abstraction fair, computation impaired, language function intact, attention span short. Mood and affect somewhat withdrawn, dysphoric, obsessive, but better than before. LABORATORY DATA: Reviewed. IMPRESSION: Unchanged from initial note. PLAN: No change from initial note. MAN Huan RINCON MD DR: SHAZIA/shanta JOB#: [id number] / [id number]
[2018-03-04 05:57] VITALS: BP 138/76
[2018-03-04] MEDS: MEMANTINE 10 MG TABLET. PO SCH ×2 (08:02→20:11)
[2018-03-04] MEDS: DOCUSATE SODIUM 100 MG CAPSULE PO SCH ×2 (08:02→20:11)
[2018-03-04] MEDS: POTASSIUM CHLORIDE 20 MEQ TABLET.ER. PO SCH (08:02)
[2018-03-04] MEDS: METOPROLOL TART IMMED RELEASE 25 MG TABLET PO SCH ×2 (08:02→20:21)
[2018-03-04] MEDS: ASPIRIN 81 MG TAB.CHEW PO SCH (08:02)
[2018-03-04] MEDS: FLECAINIDE 50 MG TABLET. PO SCH ×2 (08:04→20:11)
[2018-03-04 16:19] VITALS: BP 130/59
[2018-03-04] MEDS ORDERED: traZODone 50 MG TABLET. PO PRN (18:00)
[2018-03-04] MEDS: TAMSULOSIN 0.4 MG CAP.ER.24H. PO SCH (20:11)
[2018-03-04] MEDS: risperiDONE ORAL 1 MG/ML 30ml BOTTLE. SL SCH (20:11)
[2018-03-04] MEDS: traZODone 50 MG TABLET. PO SCH (20:11)
--- NOTE | 2018-03-04 21:04 | PDOC ---
Exam Note: Óscar Note: Please also refer to the separate dictated note~for this date of service dictated separately.~Patient seen individually. Discussed the patient with Nursing staff reviewed the chart.~Reviewed interim history and current functioning. Reviewed vital signs,~Labs/ Radiology~and current medications noted below. Continue current treatment with the changes noted in the dictated addendum note Assessment: Vital Signs: Vital Signs Date Time Temp Pulse Resp B/P (MAP) Pulse Ox O2 Delivery O2 Flow Rate FiO2 03/04/18 20:21 65 130/59 03/04/18 16:19 97.9 18 97 03/02/18 15:38 Room Air I&O Intake and Output 03/04/18 07:00 Intake Total 580 ml Balance 580 ml Intake Oral 580 ml Current Medications: Meds: Current Medications Acetaminophen (Tylenol) 650 mg PRN Q6HRS PRN PO PAIN / TEMP; Start 02/12/18 at 11:15 Multi-Ingredient Ointment (Analgesic [place]) 1 nicole PRN QID PRN TP MUSCLE PAIN; Start 02/12/18 at 11:15 Al Hydroxide/Mg Hydroxide (Mylanta Plus Xs) 15 ml PRN AFTMEALHC PRN PO DYSPEPSIA; Start 02/12/18 at 11:15 Magnesium Hydroxide (Milk Of Magnesia) 2,400 mg PRN QHS PRN PO CONSTIPATION; Start 02/12/18 at 11:15 Acetaminophen (Tylenol) 650 mg PRN Q6HRS PRN PO PAIN; Start 02/12/18 at 12:00; Status Cancel Metoprolol Tartrate (Lopressor) 25 mg BID PO Last administered on 03/04/18at 08: 02; Start 02/12/18 at 21:00; Stop 03/04/18 at 17:14; Status DC Tamsulosin HCl (Flomax) 0.4 mg HS PO Last administered on 03/04/18at 20:11; Start 02/12/18 at 21:00 Aspirin (Children'S Aspirin) 81 mg DAILYWBKFT PO Last administered on at 08:02; Start 02/13/18 at 08:00 Docusate Sodium (Colace) 100 mg BID PO Last administered on 03/04/18at 20:11; Start 02/12/18 at 21:00 Flecainide Acetate (Tambocor) 50 mg BID PO Last administered on 03/04/18 20:11 ; Start 02/12/18 at 21:00 Memantine (Namenda) 10 mg BID PO Last administered on 03/04/18 20:11; Start at 21:00 Ketotifen Fumarate (Zaditor) 1 drop BID OU Last administered on 02/24/18 20:26 ; Start 02/12/18 at 21:00; Stop 02/26/18 at 16:34; Status DC Potassium Chloride (Klor-Con) 20 meq DAILYWBKFT PO Last administered on 08:02; Start 02/13/18 at 08:00 Witch Dorothy/ Glycerin (A.e.r Pads) 1 each PRN BID PRN TP hemorrhoids Last administered on 02/15/18 10:00; Start 02/12/18 at 12:00 Lactulose (Lactulose) 10 gm TID PRN PO CONSTIPATION Last administered on 20:22; Start 02/12/18 at 12:00; Stop 02/25/18 at 01:57; Status DC Fluoxetine HCl (PROzac) 10 mg DAILY PO Last administered on 02/16/18 09:08; Start 02/14/18 at 09:00; Stop 02/16/18 at 13:50; Status DC Risperidone (RisperDAL) 0.25 mg HS SL Last administered on 03/04/18 20:11; Start 02/13/18 at 22:30 Vitamin D (Vitamin D3) 50,000 unit WEEKLY PO Last administered on 02/28/18 08: 20; Start 02/14/18 at 13:30 Phenylephrine/ Shark Liver Oil (Preparation H) 1 supp PRN Q8HRS PRN [place] RECTAL PAIN Last administered on 02/15/18 17:28; Start 02/15/18 at 14:45 Fluvoxamine Maleate (Luvox) 25 mg DAILY PO Last administered on 02/18/18 08:05 ; Start 02/17/18 at 09:00; Stop 02/18/18 at 16:17; Status DC Fluvoxamine Maleate (Luvox) 50 mg DAILY PO Last administered on 02/21/18at 08:12 ; Start 02/19/18 at 09:00; Stop 02/21/18 at 12:00; Status DC Fluvoxamine Maleate (Luvox) 75 mg DAILY PO Last administered on 02/26/18at 08:13 ; Start 02/21/18 at 09:00; Stop 02/26/18 at 09:56; Status DC Lactulose (Lactulose) 10 gm PRN TID PRN PO CONSTIPATION Last administered on at 09:44; Start 02/25/18 at 02:00 Fluvoxamine Maleate (Luvox) 100 mg DAILY PO Last administered on 03/04/18at 08: 02; Start 02/27/18 at 09:00 Ketotifen Fumarate (Zaditor) 1 drop PRN BID PRN OU ALLERGIES; Start 02/26/18 at 16:45 Metoprolol Tartrate (Lopressor) 12.5 mg BID PO Last administered on 03/04/18at 20:21; Start 03/04/18 at 21:00 Trazodone HCl (Desyrel) 50 mg PRN QHS PRN PO insomnia; Start 03/04/18 at 18:00 Trazodone HCl (Desyrel) 50 mg QHS PO Last administered on 03/04/18at 20:11; Start 03/04/18 at 21:00 Active Scripts Active Flecainide Acetate 100 Mg Tablet 50 Mg PO Q12HR 90 Days Reported Tucks (Jose L De La Cruz) 1 Each Med..pad 1 Each TP PRN BID PRN Pataday (Olopatadine Hcl) 2.5 Ml Drops 1 Drop EACHEYE BID Metoprolol Tartrate 25 Mg Tablet 25 Mg PO BID Lactulose 10 Gm/15 Ml Solution 10 Gm PO Flecainide Acetate 50 Mg Tablet 50 Mg PO BID Aspirin 81 Mg Tab.chew 81 Mg PO DAILY Risperdal (Risperidone) 0.5 Mg Tablet 0.5 Mg SL QHS Coreg (Carvedilol) 3.125 Mg Tablet 3.125 Mg PO BIDWMEALS Olanzapine 5 Mg Tablet 1.25 Mg PO PRN PRN MDD 5mg/24hrs Namenda (Memantine Hcl) 10 Mg Tablet 10 Mg PO BID Prozac (Fluoxetine Hcl) 40 Mg Capsule 40 Mg PO DAILY Flomax (Tamsulosin Hcl) 0.4 Mg Cap.er.24h 4.6 Mg PO HS Zaditor (Ketotifen Fumarate) 5 Ml Drops 1 Drop EACHEYE BID Vitamin D3 (Cholecalciferol (Vitamin D3)) 5,000 Unit Tablet 50,000 Unit PO WEEKLY FRIDAY Tylenol (Acetaminophen) 325 Mg Tablet 650 Mg PO PRN Q6HRS PRN Colace (Docusate Sodium) 100 Mg Capsule 1 Cap PO BID Potassium Chloride Oral Liquid (Potassium Chloride) 20 Meq/15 Ml Liquid 20 Meq PO DAILY LAST DOSE GIVEN: DATE: TIME: NEXT DOSE DUE: DATE: TIME: I have reviewed the current psychotropics carefully including drug interactions. Risk benefit ratio favors no change other than as noted in my dictated progress note. Diagnosis: Problems: (1) Anxiety disorder (2) Mild cognitive disorder (3) Impulse control disorder (4) Major depressive disorder, recurrent episode (5) Syncopal episodes (6) Weakness (7) PSVT (paroxysmal supraventricular tachycardia) (8) Cardiac syncope (9) Suicidal ideation CHELSEA RINCON MD Mar 04, 2018 21:04
--- NOTE | 2018-03-05 04:13 | PN ---
DATE: 03/03/2018 PSYCHIATRIC PROGRESS NOTE This is a late entry of 03/03/2018, covers elements not covered in my initial note. The patient slept 6-1/2 hours previous evening. He is still obsessed with his bowel. He has been started on lactulose to help with this. His antihypertensives were held since he was somewhat hypotensive. He has been wandering in the hallways, spent some time in the day room, which is an improvement for him. REVIEW OF SYSTEMS: Positive for the complaints of constipation. No CV, , pulmonary, eye system symptoms on review. MENTAL STATUS EXAM: Oriented to himself and situation. Speech has some latency, coherent, and low in volume. Abstraction fair, computation impaired, language function intact, attention span short. Mood and affect withdrawn. LABORATORY DATA: Reviewed. IMPRESSION: Unchanged from initial note. PLAN: No change from initial note. MAN Huan RINCON MD DR: SHAZIA/shanta JOB#: [id number] / [id number]
[2018-03-05 05:59] VITALS: BP 132/79
[2018-03-05] MEDS: POTASSIUM CHLORIDE 20 MEQ TABLET.ER. PO SCH (08:01)
[2018-03-05] MEDS: DOCUSATE SODIUM 100 MG CAPSULE PO SCH ×2 (08:01→19:41)
[2018-03-05] MEDS: MEMANTINE 10 MG TABLET. PO SCH ×2 (08:01→19:42)
[2018-03-05] MEDS: FLECAINIDE 50 MG TABLET. PO SCH ×2 (08:02→19:43)
[2018-03-05] MEDS: ASPIRIN 81 MG TAB.CHEW PO SCH (08:02)
[2018-03-05] MEDS: METOPROLOL TART IMMED RELEASE 25 MG TABLET PO SCH ×2 (08:02→19:42)
[2018-03-05 16:17] VITALS: BP 139/77
[2018-03-05] MEDS: traZODone 50 MG TABLET. PO SCH (19:41)
[2018-03-05] MEDS: TAMSULOSIN 0.4 MG CAP.ER.24H. PO SCH (19:41)
[2018-03-05] MEDS: risperiDONE ORAL 1 MG/ML 30ml BOTTLE. SL SCH (19:43)
--- NOTE | 2018-03-05 20:53 | PDOC ---
Exam Note: Óscar Note: Please also refer to the separate dictated note~for this date of service dictated separately.~Patient seen individually. Discussed the patient with Nursing staff reviewed the chart.~Reviewed interim history and current functioning. Reviewed vital signs,~Labs/ Radiology~and current medications noted below. Continue current treatment with the changes noted in the dictated addendum note Assessment: Vital Signs: Vital Signs Date Time Temp Pulse Resp B/P (MAP) Pulse Ox O2 Delivery O2 Flow Rate FiO2 03/05/18 19:43 64 139/77 03/05/18 16:17 98.3 20 94 03/02/18 15:38 Room Air I&O Intake and Output 03/05/18 07:00 Intake Total 720 ml Output Total 1 ml Balance 719 ml Intake Oral 720 ml Output Urine Total 1 ml # Bowel Movements 3 Current Medications: Meds: Current Medications Acetaminophen (Tylenol) 650 mg PRN Q6HRS PRN PO PAIN / TEMP; Start 02/12/18 at 11:15 Multi-Ingredient Ointment (Analgesic [place]) 1 nicole PRN QID PRN TP MUSCLE PAIN; Start 02/12/18 at 11:15 Al Hydroxide/Mg Hydroxide (Mylanta Plus Xs) 15 ml PRN AFTMEALHC PRN PO DYSPEPSIA; Start 02/12/18 at 11:15 Magnesium Hydroxide (Milk Of Magnesia) 2,400 mg PRN QHS PRN PO CONSTIPATION; Start 02/12/18 at 11:15 Acetaminophen (Tylenol) 650 mg PRN Q6HRS PRN PO PAIN; Start 02/12/18 at 12:00; Status Cancel Metoprolol Tartrate (Lopressor) 25 mg BID PO Last administered on 03/04/18at 08: 02; Start 02/12/18 at 21:00; Stop 03/04/18 at 17:14; Status DC Tamsulosin HCl (Flomax) 0.4 mg HS PO Last administered on 03/05/18at 19:41; Start 02/12/18 at 21:00 Aspirin (Children'S Aspirin) 81 mg DAILYWBKFT PO Last administered on at 08:02; Start 02/13/18 at 08:00 Docusate Sodium (Colace) 100 mg BID PO Last administered on 03/05/18at 19:41; Start 02/12/18 at 21:00 Flecainide Acetate (Tambocor) 50 mg BID PO Last administered on 03/05/18 19:43 ; Start 02/12/18 at 21:00 Memantine (Namenda) 10 mg BID PO Last administered on 03/05/18 19:42; Start at 21:00 Ketotifen Fumarate (Zaditor) 1 drop BID OU Last administered on 02/24/18 20:26 ; Start 02/12/18 at 21:00; Stop 02/26/18 at 16:34; Status DC Potassium Chloride (Klor-Con) 20 meq DAILYWBKFT PO Last administered on 08:01; Start 02/13/18 at 08:00 Witch Dorothy/ Glycerin (A.e.r Pads) 1 each PRN BID PRN TP hemorrhoids Last administered on 02/15/18 10:00; Start 02/12/18 at 12:00 Lactulose (Lactulose) 10 gm TID PRN PO CONSTIPATION Last administered on 20:22; Start 02/12/18 at 12:00; Stop 02/25/18 at 01:57; Status DC Fluoxetine HCl (PROzac) 10 mg DAILY PO Last administered on 02/16/18 09:08; Start 02/14/18 at 09:00; Stop 02/16/18 at 13:50; Status DC Risperidone (RisperDAL) 0.25 mg HS SL Last administered on 03/05/18 19:43; Start 02/13/18 at 22:30 Vitamin D (Vitamin D3) 50,000 unit WEEKLY PO Last administered on 02/28/18 08: 20; Start 02/14/18 at 13:30 Phenylephrine/ Shark Liver Oil (Preparation H) 1 supp PRN Q8HRS PRN [place] RECTAL PAIN Last administered on 02/15/18 17:28; Start 02/15/18 at 14:45 Fluvoxamine Maleate (Luvox) 25 mg DAILY PO Last administered on 02/18/18 08:05 ; Start 02/17/18 at 09:00; Stop 02/18/18 at 16:17; Status DC Fluvoxamine Maleate (Luvox) 50 mg DAILY PO Last administered on 8/18/18at 08:12 ; Start 02/19/18 at 09:00; Stop 02/21/18 at 12:00; Status DC Fluvoxamine Maleate (Luvox) 75 mg DAILY PO Last administered on 02/26/18at 08:13 ; Start 02/21/18 at 09:00; Stop 02/26/18 at 09:56; Status DC Lactulose (Lactulose) 10 gm PRN TID PRN PO CONSTIPATION Last administered on at 09:44; Start 02/25/18 at 02:00 Fluvoxamine Maleate (Luvox) 100 mg DAILY PO Last administered on 03/05/18at 08: 02; Start 02/27/18 at 09:00 Ketotifen Fumarate (Zaditor) 1 drop PRN BID PRN OU ALLERGIES; Start 02/26/18 at 16:45 Metoprolol Tartrate (Lopressor) 12.5 mg BID PO Last administered on 03/05/18at 19:42; Start 03/04/18 at 21:00 Trazodone HCl (Desyrel) 50 mg PRN QHS PRN PO insomnia; Start 03/04/18 at 18:00 Trazodone HCl (Desyrel) 50 mg QHS PO Last administered on 03/05/18at 19:41; Start 03/04/18 at 21:00 Active Scripts Active Flecainide Acetate 100 Mg Tablet 50 Mg PO Q12HR 90 Days Reported Tucks (Jose L De La Cruz) 1 Each Med..pad 1 Each TP PRN BID PRN Pataday (Olopatadine Hcl) 2.5 Ml Drops 1 Drop EACHEYE BID Metoprolol Tartrate 25 Mg Tablet 25 Mg PO BID Lactulose 10 Gm/15 Ml Solution 10 Gm PO Flecainide Acetate 50 Mg Tablet 50 Mg PO BID Aspirin 81 Mg Tab.chew 81 Mg PO DAILY Risperdal (Risperidone) 0.5 Mg Tablet 0.5 Mg SL QHS Coreg (Carvedilol) 3.125 Mg Tablet 3.125 Mg PO BIDWMEALS Olanzapine 5 Mg Tablet 1.25 Mg PO PRN PRN MDD 5mg/24hrs Namenda (Memantine Hcl) 10 Mg Tablet 10 Mg PO BID Prozac (Fluoxetine Hcl) 40 Mg Capsule 40 Mg PO DAILY Flomax (Tamsulosin Hcl) 0.4 Mg Cap.er.24h 4.6 Mg PO HS Zaditor (Ketotifen Fumarate) 5 Ml Drops 1 Drop EACHEYE BID Vitamin D3 (Cholecalciferol (Vitamin D3)) 5,000 Unit Tablet 50,000 Unit PO WEEKLY FRIDAY Tylenol (Acetaminophen) 325 Mg Tablet 650 Mg PO PRN Q6HRS PRN Colace (Docusate Sodium) 100 Mg Capsule 1 Cap PO BID Potassium Chloride Oral Liquid (Potassium Chloride) 20 Meq/15 Ml Liquid 20 Meq PO DAILY LAST DOSE GIVEN: DATE: TIME: NEXT DOSE DUE: DATE: TIME: I have reviewed the current psychotropics carefully including drug interactions. Risk benefit ratio favors no change other than as noted in my dictated progress note. Diagnosis: Problems: (1) Anxiety disorder (2) Mild cognitive disorder (3) Impulse control disorder (4) Major depressive disorder, recurrent episode (5) Syncopal episodes (6) Weakness (7) PSVT (paroxysmal supraventricular tachycardia) (8) Cardiac syncope (9) Suicidal ideation CHELSEA RINCON MD Mar 05, 2018 20:53
--- NOTE | 2018-03-06 02:42 | PN ---
DATE: 03/04/2018 This is a late entry for 03/04/2018 covers elements not covered in my initial note. SUBJECTIVE: I met with the patient in the evening. The patient slept 5 hours previous night. He remains somewhat obsessed with his bowel and is on stool softeners to help with this, slept just 5 hours. REVIEW OF SYSTEMS: No CV, , pulmonary, eye system symptoms on review. MENTAL STATUS EXAM: Oriented to himself and situation. Speech moderate latency, often responses monosyllabic. Abstraction fair, computation impaired, language function intact, attention span short. Mood and affect still somewhat withdrawn, but better than before. LABORATORY DATA: Reviewed. IMPRESSION: Unchanged from initial note. PLAN: No change from initial note. MAN Huan RINCON MD DR: SHAZIA/shanta JOB#: [id number] / [id number]
[2018-03-06 06:41] VITALS: BP 170/60
[2018-03-06] MEDS: FLECAINIDE 50 MG TABLET. PO SCH ×2 (07:55→20:52)
[2018-03-06] MEDS: POTASSIUM CHLORIDE 20 MEQ TABLET.ER. PO SCH (07:55)
[2018-03-06] MEDS: ASPIRIN 81 MG TAB.CHEW PO SCH (07:56)
[2018-03-06] MEDS: DOCUSATE SODIUM 100 MG CAPSULE PO SCH ×2 (07:56→19:34)
[2018-03-06] MEDS: METOPROLOL TART IMMED RELEASE 25 MG TABLET PO SCH ×2 (07:56→19:36)
[2018-03-06] MEDS: MEMANTINE 10 MG TABLET. PO SCH ×2 (07:56→19:34)
[2018-03-06 15:44] VITALS: BP 119/73
[2018-03-06] MEDS: TAMSULOSIN 0.4 MG CAP.ER.24H. PO SCH (19:35)
[2018-03-06] MEDS: traZODone 50 MG TABLET. PO SCH (19:36)
[2018-03-06] MEDS: risperiDONE ORAL 1 MG/ML 30ml BOTTLE. SL SCH (19:37)
--- NOTE | 2018-03-06 20:53 | PDOC ---
Exam Note: Óscar Note: Please also refer to the separate dictated note~for this date of service dictated separately.~Patient seen individually. Discussed the patient with Nursing staff reviewed the chart.~Reviewed interim history and current functioning. Reviewed vital signs,~Labs/ Radiology~and current medications noted below. Continue current treatment with the changes noted in the dictated addendum note Assessment: Vital Signs: Vital Signs Date Time Temp Pulse Resp B/P (MAP) Pulse Ox O2 Delivery O2 Flow Rate FiO2 03/06/18 20:52 64 119/73 03/06/18 15:44 97.8 20 96 03/02/18 15:38 Room Air I&O Intake and Output 03/06/18 07:00 Intake Total 840 ml Output Total 1 ml Balance 839 ml Intake Oral 840 ml Output Urine Total 1 ml # Bowel Movements 1 Current Medications: Meds: Current Medications Acetaminophen (Tylenol) 650 mg PRN Q6HRS PRN PO PAIN / TEMP; Start 02/12/18 at 11:15 Multi-Ingredient Ointment (Analgesic [place]) 1 nicole PRN QID PRN TP MUSCLE PAIN; Start 02/12/18 at 11:15 Al Hydroxide/Mg Hydroxide (Mylanta Plus Xs) 15 ml PRN AFTMEALHC PRN PO DYSPEPSIA; Start 02/12/18 at 11:15 Magnesium Hydroxide (Milk Of Magnesia) 2,400 mg PRN QHS PRN PO CONSTIPATION; Start 02/12/18 at 11:15 Acetaminophen (Tylenol) 650 mg PRN Q6HRS PRN PO PAIN; Start 02/12/18 at 12:00; Status Cancel Metoprolol Tartrate (Lopressor) 25 mg BID PO Last administered on 03/04/18at 08: 02; Start 02/12/18 at 21:00; Stop 03/04/18 at 17:14; Status DC Tamsulosin HCl (Flomax) 0.4 mg HS PO Last administered on 03/06/18at 19:35; Start 02/12/18 at 21:00 Aspirin (Children'S Aspirin) 81 mg DAILYWBKFT PO Last administered on at 07:56; Start 02/13/18 at 08:00 Docusate Sodium (Colace) 100 mg BID PO Last administered on 03/06/18at 19:34; Start 02/12/18 at 21:00 Flecainide Acetate (Tambocor) 50 mg BID PO Last administered on 03/06/18at 20:52 ; Start 02/12/18 at 21:00 Memantine (Namenda) 10 mg BID PO Last administered on 03/06/18 19:34; Start at 21:00 Ketotifen Fumarate (Zaditor) 1 drop BID OU Last administered on 02/24/18at 20:26 ; Start 02/12/18 at 21:00; Stop 02/26/18 at 16:34; Status DC Potassium Chloride (Klor-Con) 20 meq DAILYWBKFT PO Last administered on 07:55; Start 02/13/18 at 08:00 Witch Dorothy/ Glycerin (A.e.r Pads) 1 each PRN BID PRN TP hemorrhoids Last administered on 02/15/18at 10:00; Start 02/12/18 at 12:00 Lactulose (Lactulose) 10 gm TID PRN PO CONSTIPATION Last administered on at 20:22; Start 02/12/18 at 12:00; Stop 02/25/18 at 01:57; Status DC Fluoxetine HCl (PROzac) 10 mg DAILY PO Last administered on 02/16/18 09:08; Start 02/14/18 at 09:00; Stop 02/16/18 at 13:50; Status DC Risperidone (RisperDAL) 0.25 mg HS SL Last administered on 03/06/18at 19:37; Start 02/13/18 at 22:30 Vitamin D (Vitamin D3) 50,000 unit WEEKLY PO Last administered on 02/28/18 08: 20; Start 02/14/18 at 13:30 Phenylephrine/ Shark Liver Oil (Preparation H) 1 supp PRN Q8HRS PRN [place] RECTAL PAIN Last administered on 02/15/18 17:28; Start 02/15/18 at 14:45 Fluvoxamine Maleate (Luvox) 25 mg DAILY PO Last administered on 02/18/18at 08:05 ; Start 02/17/18 at 09:00; Stop 02/18/18 at 16:17; Status DC Fluvoxamine Maleate (Luvox) 50 mg DAILY PO Last administered on 02/21/18at 08:12 ; Start 02/19/18 at 09:00; Stop 02/21/18 at 12:00; Status DC Fluvoxamine Maleate (Luvox) 75 mg DAILY PO Last administered on 02/26/18at 08:13 ; Start 02/21/18 at 09:00; Stop 02/26/18 at 09:56; Status DC Lactulose (Lactulose) 10 gm PRN TID PRN PO CONSTIPATION Last administered on at 09:44; Start 02/25/18 at 02:00 Fluvoxamine Maleate (Luvox) 100 mg DAILY PO Last administered on 03/06/18at 07: 56; Start 02/27/18 at 09:00 Ketotifen Fumarate (Zaditor) 1 drop PRN BID PRN OU ALLERGIES; Start 02/26/18 at 16:45 Metoprolol Tartrate (Lopressor) 12.5 mg BID PO Last administered on 03/06/18at 19:36; Start 03/04/18 at 21:00 Trazodone HCl (Desyrel) 50 mg PRN QHS PRN PO insomnia; Start 03/04/18 at 18:00 Trazodone HCl (Desyrel) 50 mg QHS PO Last administered on 03/06/18at 19:36; Start 03/04/18 at 21:00 Active Scripts Active Flecainide Acetate 100 Mg Tablet 50 Mg PO Q12HR 90 Days Reported Tucks (Witch Dorothy) 1 Each Med..pad 1 Each TP PRN BID PRN Pataday (Olopatadine Hcl) 2.5 Ml Drops 1 Drop EACHEYE BID Metoprolol Tartrate 25 Mg Tablet 25 Mg PO BID Lactulose 10 Gm/15 Ml Solution 10 Gm PO Flecainide Acetate 50 Mg Tablet 50 Mg PO BID Aspirin 81 Mg Tab.chew 81 Mg PO DAILY Risperdal (Risperidone) 0.5 Mg Tablet 0.5 Mg SL QHS Coreg (Carvedilol) 3.125 Mg Tablet 3.125 Mg PO BIDWMEALS Olanzapine 5 Mg Tablet 1.25 Mg PO PRN PRN MDD 5mg/24hrs Namenda (Memantine Hcl) 10 Mg Tablet 10 Mg PO BID Prozac (Fluoxetine Hcl) 40 Mg Capsule 40 Mg PO DAILY Flomax (Tamsulosin Hcl) 0.4 Mg Cap.er.24h 4.6 Mg PO HS Zaditor (Ketotifen Fumarate) 5 Ml Drops 1 Drop EACHEYE BID Vitamin D3 (Cholecalciferol (Vitamin D3)) 5,000 Unit Tablet 50,000 Unit PO WEEKLY FRIDAY Tylenol (Acetaminophen) 325 Mg Tablet 650 Mg PO PRN Q6HRS PRN Colace (Docusate Sodium) 100 Mg Capsule 1 Cap PO BID Potassium Chloride Oral Liquid (Potassium Chloride) 20 Meq/15 Ml Liquid 20 Meq PO DAILY LAST DOSE GIVEN: DATE: TIME: NEXT DOSE DUE: DATE: TIME: I have reviewed the current psychotropics carefully including drug interactions. Risk benefit ratio favors no change other than as noted in my dictated progress note. Diagnosis: Problems: (1) Anxiety disorder (2) Mild cognitive disorder (3) Impulse control disorder (4) Major depressive disorder, recurrent episode (5) Syncopal episodes (6) Weakness (7) PSVT (paroxysmal supraventricular tachycardia) (8) Cardiac syncope (9) Suicidal ideation CHELSEA RINCON MD Mar 06, 2018 20:53
--- NOTE | 2018-03-06 22:51 | PN ---
DATE: 03/05/2018 This is a late entry for 03/05/2018 covers elements not covered in my initial note. SUBJECTIVE: I met with the patient in the evening and staffed at a treatment team meeting with the entire team in the morning. I reviewed the patient's history, diagnosis, placement options. The patient is sleeping well, remains somewhat obsessed with his bowels less so than before. REVIEW OF SYSTEMS: No CV, , pulmonary, eye, ENT system symptoms on review. MENTAL STATUS EXAM: Oriented to himself and situation. Speech moderate latency, often responses monosyllabic. Abstraction fair, computation impaired, language function intact, attention span short. Mood and affect somewhat withdrawn, but improved. LABORATORY DATA: Reviewed. IMPRESSION: Unchanged from initial note. PLAN: No change from initial note. Placement options are being sought by social service staff. MAN Huan RINCON MD DR: SHAZIA/shanta JOB#: [id number] / [id number]
[2018-03-07 06:16] VITALS: BP 114/64
[2018-03-07 07:58] LABS: BASO % 0 % (0-3); EOS # 0.2 x10^3/uL (0.0-0.7); EOS % 3 % (0-3); HEMOGLOBIN 13.1 g/dL (13.0-17.5); LYMPH % 32 % (24-48); MEAN CORPUSCULAR HEMOGLOBIN 32 pg (25-35); MEAN CORPUSCULAR HGB CONC 34 g/dL (31-37); MEAN CORPUSCULAR VOLUME 96 fL (79-100); MONO # 0.7 x10^3/uL (0.0-1.1); MONO % 11 % (0-9); NEUT # 3.3 x10^3uL (1.8-7.7); NEUT % 54 % (31-73); PLATELET COUNT 162 x10^3/uL (140-400); RED BLOOD COUNT 4.04 x10^6/uL (4.30-5.70); WHITE BLOOD COUNT 6.2 x10^3/uL (4.0-11.0)
[2018-03-07 08:16] LABS: ALBUMIN 2.9 g/dL (3.4-5.0); ALBUMIN/GLOBULIN RATIO 0.9 (1.0-1.7); GFR 70.7; POTASSIUM 4.1 mmol/L (3.5-5.1); TOTAL BILIRUBIN 0.2 mg/dL (0.2-1.0); TOTAL PROTEIN 6.1 g/dL (6.4-8.2)
[2018-03-07] MEDS: ASPIRIN 81 MG TAB.CHEW PO SCH (09:07)
[2018-03-07] MEDS: DOCUSATE SODIUM 100 MG CAPSULE PO SCH ×2 (09:08→19:41)
[2018-03-07] MEDS: POTASSIUM CHLORIDE 20 MEQ TABLET.ER. PO SCH (09:08)
[2018-03-07] MEDS: MEMANTINE 10 MG TABLET. PO SCH ×2 (09:09→19:41)
[2018-03-07] MEDS: FLECAINIDE 50 MG TABLET. PO SCH ×2 (09:16→19:43)
[2018-03-07] MEDS: CHOLECALCIFEROL (VITAMIN D3) 50,000 UNIT CAPSULE PO SCH (09:19)
[2018-03-07] MEDS: METOPROLOL TART IMMED RELEASE 25 MG TABLET PO SCH (09:29)
[2018-03-07 16:36] VITALS: BP 132/74
[2018-03-07] MEDS: TAMSULOSIN 0.4 MG CAP.ER.24H. PO SCH (19:41)
[2018-03-07] MEDS: traZODone 50 MG TABLET. PO SCH (19:42)
[2018-03-07] MEDS: risperiDONE ORAL 1 MG/ML 30ml BOTTLE. SL SCH (19:44)
--- NOTE | 2018-03-07 23:07 | PDOC ---
Exam Note: Óscar Note: Please also refer to the separate dictated note~for this date of service dictated separately.~Patient seen individually. Discussed the patient with Nursing staff reviewed the chart.~Reviewed interim history and current functioning. Reviewed vital signs,~Labs/ Radiology~and current medications noted below. Continue current treatment with the changes noted in the dictated addendum note Assessment: Vital Signs: Vital Signs Date Time Temp Pulse Resp B/P (MAP) Pulse Ox O2 Delivery O2 Flow Rate FiO2 03/07/18 19:43 90 132/74 03/07/18 16:36 98.1 18 96 03/02/18 15:38 Room Air I&O Intake and Output 03/07/18 07:00 Intake Total 180 ml Output Total 1 ml Balance 179 ml Intake Oral 180 ml Output Urine Total 1 ml # Bowel Movements 1 Labs: Laboratory Tests Test 03/07/18 07:35 White Blood Count 6.2 x10^3/uL (4.0-11.0) Red Blood Count 4.04 x10^6/uL (4.30-5.70) L Hemoglobin 13.1 g/dL (13.0-17.5) Hematocrit 39.0 % (39.0-53.0) Mean Corpuscular Volume 96 fL (79-100) Mean Corpuscular Hemoglobin 32 pg (25-35) Mean Corpuscular Hemoglobin Concent 34 g/dL (31-37) Red Cell Distribution Width 16.0 % (11.5-14.5) H Platelet Count 162 x10^3/uL (140-400) Neutrophils (%) (Auto) 54 % (31-73) Lymphocytes (%) (Auto) 32 % (24-48) Monocytes (%) (Auto) 11 % (0-9) H Eosinophils (%) (Auto) 3 % (0-3) Basophils (%) (Auto) 0 % (0-3) Neutrophils # (Auto) 3.3 x10^3uL (1.8-7.7) Lymphocytes # (Auto) 2.0 x10^3/uL (1.0-4.8) Monocytes # (Auto) 0.7 x10^3/uL (0.0-1.1) Eosinophils # (Auto) 0.2 x10^3/uL (0.0-0.7) Basophils # (Auto) 0.0 x10^3/uL (0.0-0.2) Sodium Level 143 mmol/L (136-145) Potassium Level 4.1 mmol/L (3.5-5.1) Chloride Level 107 mmol/L (98-107) Carbon Dioxide Level 32 mmol/L (21-32) Anion Gap 4 (6-14) L Blood Urea Nitrogen 14 mg/dL (8-26) Creatinine 1.0 mg/dL (0.7-1.3) Estimated GFR (Cockcroft-Gault) 70.7 BUN/Creatinine Ratio 14 (6-20) Glucose Level 88 mg/dL (70-99) Calcium Level 9.0 mg/dL (8.5-10.1) Total Bilirubin 0.2 mg/dL (0.2-1.0) Aspartate Amino Transferase (AST) 14 U/L (15-37) L Alanine Aminotransferase (ALT) 18 U/L (16-63) Alkaline Phosphatase 73 U/L (46-116) Total Protein 6.1 g/dL (6.4-8.2) L Albumin 2.9 g/dL (3.4-5.0) L Albumin/Globulin Ratio 0.9 (1.0-1.7) L Current Medications: Meds: Current Medications Acetaminophen (Tylenol) 650 mg PRN Q6HRS PRN PO PAIN / TEMP; Start 02/12/18 at 11:15 Multi-Ingredient Ointment (Analgesic [place]) 1 nicole PRN QID PRN TP MUSCLE PAIN; Start 02/12/18 at 11:15 Al Hydroxide/Mg Hydroxide (Mylanta Plus Xs) 15 ml PRN AFTMEALHC PRN PO DYSPEPSIA; Start 02/12/18 at 11:15 Magnesium Hydroxide (Milk Of Magnesia) 2,400 mg PRN QHS PRN PO CONSTIPATION; Start 02/12/18 at 11:15 Acetaminophen (Tylenol) 650 mg PRN Q6HRS PRN PO PAIN; Start 02/12/18 at 12:00; Status Cancel Metoprolol Tartrate (Lopressor) 25 mg BID PO Last administered on 03/04/18at 08: 02; Start 02/12/18 at 21:00; Stop 03/04/18 at 17:14; Status DC Tamsulosin HCl (Flomax) 0.4 mg HS PO Last administered on 03/07/18 19:41; Start 02/12/18 at 21:00 Aspirin (Children'S Aspirin) 81 mg DAILYWBKFT PO Last administered on 03/07/18 09:07; Start 02/13/18 at 08:00 Docusate Sodium (Colace) 100 mg BID PO Last administered on 03/07/18 19:41; Start 02/12/18 at 21:00 Flecainide Acetate (Tambocor) 50 mg BID PO Last administered on 03/07/18 19:43 ; Start 02/12/18 at 21:00 Memantine (Namenda) 10 mg BID PO Last administered on 03/07/18 19:41; Start 02/12/18 at 21:00 Ketotifen Fumarate (Zaditor) 1 drop BID OU Last administered on 02/24/18 20:26 ; Start 02/12/18 at 21:00; Stop 02/26/18 at 16:34; Status DC Potassium Chloride (Klor-Con) 20 meq DAILYWBKFT PO Last administered on 09:08; Start 02/13/18 at 08:00 Witch Dorothy/ Glycerin (A.e.r Pads) 1 each PRN BID PRN TP hemorrhoids Last administered on 02/15/18 10:00; Start 02/12/18 at 12:00 Lactulose (Lactulose) 10 gm TID PRN PO CONSTIPATION Last administered on 20:22; Start 02/12/18 at 12:00; Stop 02/25/18 at 01:57; Status DC Fluoxetine HCl (PROzac) 10 mg DAILY PO Last administered on 02/16/18 09:08; Start 02/14/18 at 09:00; Stop 02/16/18 at 13:50; Status DC Risperidone (RisperDAL) 0.25 mg HS SL Last administered on 03/07/18 19:44; Start 02/13/18 at 22:30 Vitamin D (Vitamin D3) 50,000 unit WEEKLY PO Last administered on 03/07/18 09: 19; Start 02/14/18 at 13:30 Phenylephrine/ Shark Liver Oil (Preparation H) 1 supp PRN Q8HRS PRN [place] RECTAL PAIN Last administered on 02/15/18at 17:28; Start 02/15/18 at 14:45 Fluvoxamine Maleate (Luvox) 25 mg DAILY PO Last administered on 02/18/18at 08:05 ; Start 02/17/18 at 09:00; Stop 02/18/18 at 16:17; Status DC Fluvoxamine Maleate (Luvox) 50 mg DAILY PO Last administered on 02/21/18at 08:12 ; Start 02/19/18 at 09:00; Stop 02/21/18 at 12:00; Status DC Fluvoxamine Maleate (Luvox) 75 mg DAILY PO Last administered on 02/26/18at 08:13 ; Start 02/21/18 at 09:00; Stop 02/26/18 at 09:56; Status DC Lactulose (Lactulose) 10 gm PRN TID PRN PO CONSTIPATION Last administered on at 09:44; Start 02/25/18 at 02:00 Fluvoxamine Maleate (Luvox) 100 mg DAILY PO Last administered on 03/07/18at 09:09 ; Start 02/27/18 at 09:00 Ketotifen Fumarate (Zaditor) 1 drop PRN BID PRN OU ALLERGIES; Start 02/26/18 at 16:45 Metoprolol Tartrate (Lopressor) 12.5 mg BID PO Last administered on 03/06/18at 19:36; Start 03/04/18 at 21:00; Stop 03/07/18 at 15:42; Status DC Trazodone HCl (Desyrel) 50 mg PRN QHS PRN PO insomnia; Start 03/04/18 at 18:00 Trazodone HCl (Desyrel) 50 mg QHS PO Last administered on 03/07/18at 19:42; Start 03/04/18 at 21:00 Active Scripts Active Flecainide Acetate 100 Mg Tablet 50 Mg PO Q12HR 90 Days Reported Tucks ([place] L De [place]) 1 Each Med..pad 1 Each TP PRN BID PRN Pataday (Olopatadine Hcl) 2.5 Ml Drops 1 Drop EACHEYE BID Metoprolol Tartrate 25 Mg Tablet 25 Mg PO BID Lactulose 10 Gm/15 Ml Solution 10 Gm PO Flecainide Acetate 50 Mg Tablet 50 Mg PO BID Aspirin 81 Mg Tab.chew 81 Mg PO DAILY Risperdal (Risperidone) 0.5 Mg Tablet 0.5 Mg SL QHS Coreg (Carvedilol) 3.125 Mg Tablet 3.125 Mg PO BIDWMEALS Olanzapine 5 Mg Tablet 1.25 Mg PO PRN PRN MDD 5mg/24hrs Namenda (Memantine Hcl) 10 Mg Tablet 10 Mg PO BID Prozac (Fluoxetine Hcl) 40 Mg Capsule 40 Mg PO DAILY Flomax (Tamsulosin Hcl) 0.4 Mg Cap.er.24h 4.6 Mg PO HS Zaditor (Ketotifen Fumarate) 5 Ml Drops 1 Drop EACHEYE BID Vitamin D3 (Cholecalciferol (Vitamin D3)) 5,000 Unit Tablet 50,000 Unit PO WEEKLY FRIDAY Tylenol (Acetaminophen) 325 Mg Tablet 650 Mg PO PRN Q6HRS PRN Colace (Docusate Sodium) 100 Mg Capsule 1 Cap PO BID Potassium Chloride Oral Liquid (Potassium Chloride) 20 Meq/15 Ml Liquid 20 Meq PO DAILY LAST DOSE GIVEN: DATE: TIME: NEXT DOSE DUE: DATE: TIME: I have reviewed the current psychotropics carefully including drug interactions. Risk benefit ratio favors no change other than as noted in my dictated progress note. Diagnosis: Problems: (1) Anxiety disorder (2) Mild cognitive disorder (3) Impulse control disorder (4) Major depressive disorder, recurrent episode (5) Syncopal episodes (6) Weakness (7) PSVT (paroxysmal supraventricular tachycardia) (8) Cardiac syncope (9) Suicidal ideation CHELSEA RINCON MD Mar 07, 2018 23:06
[2018-03-08 06:23] VITALS: BP 112/64
[2018-03-08] MEDS: POTASSIUM CHLORIDE 20 MEQ TABLET.ER. PO SCH (08:52)
[2018-03-08] MEDS: ASPIRIN 81 MG TAB.CHEW PO SCH (08:52)
[2018-03-08] MEDS: MEMANTINE 10 MG TABLET. PO SCH ×2 (08:52→20:01)
[2018-03-08] MEDS: DOCUSATE SODIUM 100 MG CAPSULE PO SCH ×2 (08:52→20:01)
[2018-03-08] MEDS: FLECAINIDE 50 MG TABLET. PO SCH ×2 (08:56→20:02)
--- NOTE | 2018-03-08 09:58 | PN ---
DATE: 03/06/2018 PSYCHIATRIC PROGRESS NOTE This is a late entry 03/06/2018, covers elements not covered in my initial note. SUBJECTIVE: I met with the patient in the evening. Overall, the patient remains somewhat withdrawn, still is somewhat bowel obsessed, less so than before. REVIEW OF SYSTEMS: No CV, , pulmonary, eye system symptoms on review. MENTAL STATUS EXAM: Oriented to himself and situation. Speech is coherent, has some latency, low in volume. Abstraction fair, computation impaired, language function intact, attention span short. Mood and affect still somewhat withdrawn, but improved. LABORATORY DATA: Reviewed. IMPRESSION: Unchanged from initial note. PLAN: Continue psychotropics from initial note, Namenda, Luvox 75 at bedtime, Risperdal 0.25 mg at bedtime. MAN Huan RINCON MD DR: SHAZIA/shanta JOB#: [id number] / [id number]
[2018-03-08 16:06] VITALS: BP 125/75
[2018-03-08] MEDS: TAMSULOSIN 0.4 MG CAP.ER.24H. PO SCH (20:01)
[2018-03-08] MEDS: traZODone 50 MG TABLET. PO SCH (20:01)
[2018-03-08] MEDS: risperiDONE ORAL 1 MG/ML 30ml BOTTLE. SL SCH (20:03)
--- NOTE | 2018-03-08 20:50 | PDOC ---
Exam Note: Óscar Note: Please also refer to the separate dictated note~for this date of service dictated separately.~Patient seen individually. Discussed the patient with Nursing staff reviewed the chart.~Reviewed interim history and current functioning. Reviewed vital signs,~Labs/ Radiology~and current medications noted below. Continue current treatment with the changes noted in the dictated addendum note Assessment: Vital Signs: Vital Signs Date Time Temp Pulse Resp B/P (MAP) Pulse Ox O2 Delivery O2 Flow Rate FiO2 03/08/18 20:02 68 125/75 03/08/18 16:06 98.0 18 96 03/02/18 15:38 Room Air I&O Intake and Output 03/08/18 07:00 Intake Total 1040 ml Balance 1040 ml Intake Oral 1040 ml # Voids 1 Current Medications: Meds: Current Medications Acetaminophen (Tylenol) 650 mg PRN Q6HRS PRN PO PAIN / TEMP; Start 02/12/18 at 11:15 Multi-Ingredient Ointment (Analgesic [place]) 1 nicole PRN QID PRN TP MUSCLE PAIN; Start 02/12/18 at 11:15 Al Hydroxide/Mg Hydroxide (Mylanta Plus Xs) 15 ml PRN AFTMEALHC PRN PO DYSPEPSIA; Start 02/12/18 at 11:15 Magnesium Hydroxide (Milk Of Magnesia) 2,400 mg PRN QHS PRN PO CONSTIPATION; Start 02/12/18 at 11:15 Acetaminophen (Tylenol) 650 mg PRN Q6HRS PRN PO PAIN; Start 02/12/18 at 12:00; Status Cancel Metoprolol Tartrate (Lopressor) 25 mg BID PO Last administered on 03/04/18at 08: 02; Start 02/12/18 at 21:00; Stop 03/04/18 at 17:14; Status DC Tamsulosin HCl (Flomax) 0.4 mg HS PO Last administered on 03/08/18at 20:01; Start 02/12/18 at 21:00 Aspirin (Children'S Aspirin) 81 mg DAILYWBKFT PO Last administered on 03/08/18at 08:52; Start 02/13/18 at 08:00 Docusate Sodium (Colace) 100 mg BID PO Last administered on 03/08/18at 20:01; Start 02/12/18 at 21:00 Flecainide Acetate (Tambocor) 50 mg BID PO Last administered on 03/08/18 20:02 ; Start 02/12/18 at 21:00 Memantine (Namenda) 10 mg BID PO Last administered on 03/08/18 20:01; Start 02/12/18 at 21:00 Ketotifen Fumarate (Zaditor) 1 drop BID OU Last administered on 02/24/18 20:26 ; Start 02/12/18 at 21:00; Stop 02/26/18 at 16:34; Status DC Potassium Chloride (Klor-Con) 20 meq DAILYWBKFT PO Last administered on 08:52; Start 02/13/18 at 08:00 Witch [place]/ Glycerin (A.e.r Pads) 1 each PRN BID PRN TP hemorrhoids Last administered on 02/15/18 10:00; Start 02/12/18 at 12:00 Lactulose (Lactulose) 10 gm TID PRN PO CONSTIPATION Last administered on 20:22; Start 02/12/18 at 12:00; Stop 02/25/18 at 01:57; Status DC Fluoxetine HCl (PROzac) 10 mg DAILY PO Last administered on 02/16/18 09:08; Start 02/14/18 at 09:00; Stop 02/16/18 at 13:50; Status DC Risperidone (RisperDAL) 0.25 mg HS SL Last administered on 03/08/18 20:03; Start 02/13/18 at 22:30 Vitamin D (Vitamin D3) 50,000 unit WEEKLY PO Last administered on 03/07/18 09: 19; Start 02/14/18 at 13:30 Phenylephrine/ Shark Liver Oil (Preparation H) 1 supp PRN Q8HRS PRN [place] RECTAL PAIN Last administered on 02/15/18 17:28; Start 02/15/18 at 14:45 Fluvoxamine Maleate (Luvox) 25 mg DAILY PO Last administered on 02/18/18 08:05 ; Start 02/17/18 at 09:00; Stop 02/18/18 at 16:17; Status DC Fluvoxamine Maleate (Luvox) 50 mg DAILY PO Last administered on 8/18/18at 08:12 ; Start 02/19/18 at 09:00; Stop 02/21/18 at 12:00; Status DC Fluvoxamine Maleate (Luvox) 75 mg DAILY PO Last administered on 02/26/18at 08:13 ; Start 02/21/18 at 09:00; Stop 02/26/18 at 09:56; Status DC Lactulose (Lactulose) 10 gm PRN TID PRN PO CONSTIPATION Last administered on at 09:44; Start 02/25/18 at 02:00 Fluvoxamine Maleate (Luvox) 100 mg DAILY PO Last administered on 03/08/18at 08:52 ; Start 02/27/18 at 09:00 Ketotifen Fumarate (Zaditor) 1 drop PRN BID PRN OU ALLERGIES; Start 02/26/18 at 16:45 Metoprolol Tartrate (Lopressor) 12.5 mg BID PO Last administered on 03/06/18at 19:36; Start 03/04/18 at 21:00; Stop 03/07/18 at 15:42; Status DC Trazodone HCl (Desyrel) 50 mg PRN QHS PRN PO insomnia; Start 03/04/18 at 18:00 Trazodone HCl (Desyrel) 50 mg QHS PO Last administered on 03/08/18at 20:01; Start 03/04/18 at 21:00 Active Scripts Active Flecainide Acetate 100 Mg Tablet 50 Mg PO Q12HR 90 Days Reported Tucks (Witch Dorothy) 1 Each Med..pad 1 Each TP PRN BID PRN Pataday (Olopatadine Hcl) 2.5 Ml Drops 1 Drop EACHEYE BID Metoprolol Tartrate 25 Mg Tablet 25 Mg PO BID Lactulose 10 Gm/15 Ml Solution 10 Gm PO Flecainide Acetate 50 Mg Tablet 50 Mg PO BID Aspirin 81 Mg Tab.chew 81 Mg PO DAILY Risperdal (Risperidone) 0.5 Mg Tablet 0.5 Mg SL QHS Coreg (Carvedilol) 3.125 Mg Tablet 3.125 Mg PO BIDWMEALS Olanzapine 5 Mg Tablet 1.25 Mg PO PRN PRN MDD 5mg/24hrs Namenda (Memantine Hcl) 10 Mg Tablet 10 Mg PO BID Prozac (Fluoxetine Hcl) 40 Mg Capsule 40 Mg PO DAILY Flomax (Tamsulosin Hcl) 0.4 Mg Cap.er.24h 4.6 Mg PO HS Zaditor (Ketotifen Fumarate) 5 Ml Drops 1 Drop EACHEYE BID Vitamin D3 (Cholecalciferol (Vitamin D3)) 5,000 Unit Tablet 50,000 Unit PO WEEKLY FRIDAY Tylenol (Acetaminophen) 325 Mg Tablet 650 Mg PO PRN Q6HRS PRN Colace (Docusate Sodium) 100 Mg Capsule 1 Cap PO BID Potassium Chloride Oral Liquid (Potassium Chloride) 20 Meq/15 Ml Liquid 20 Meq PO DAILY LAST DOSE GIVEN: DATE: TIME: NEXT DOSE DUE: DATE: TIME: I have reviewed the current psychotropics carefully including drug interactions. Risk benefit ratio favors no change other than as noted in my dictated progress note. Diagnosis: Problems: (1) Anxiety disorder (2) Mild cognitive disorder (3) Impulse control disorder (4) Major depressive disorder, recurrent episode (5) Syncopal episodes (6) Weakness (7) PSVT (paroxysmal supraventricular tachycardia) (8) Cardiac syncope (9) Suicidal ideation CHELSEA RINCON MD Mar 08, 2018 20:50
--- NOTE | 2018-03-08 21:33 | PN ---
DATE: 03/07/2018 PSYCHIATRIC PROGRESS NOTE This late entry 03/07/2018 covers elements, not covered in my initial note. I met with the patient in the evening. The patient slept 7 hours previous night. Per nursing report, he is less obsessed with his bowel and bathroom, spends much time in his room. REVIEW OF SYSTEMS: No CV, , pulmonary, eye system symptoms on review. MENTAL STATUS EXAM: Oriented to himself and situation. Speech moderate latency, low in rate and rhythm, low in volume. Abstraction fair, computation impaired, language function intact, attention span short. Mood and affect somewhat withdrawn, but showing improvement, less obsessed. LABORATORY DATA: Reviewed. IMPRESSION: Unchanged from initial note. PLAN: No change from initial note. Social service staff is trying to find appropriate placement for him and transition as soon as this is found. MAN Huan RINCON MD DR: SHAZIA/shanta JOB#: [id number] / [id number]
[2018-03-09 02:20] VITALS: BP 126/69
[2018-03-09 06:06] VITALS: BP 131/72
[2018-03-09] MEDS: ASPIRIN 81 MG TAB.CHEW PO SCH (08:50)
[2018-03-09] MEDS: MEMANTINE 10 MG TABLET. PO SCH ×2 (08:51→19:48)
[2018-03-09] MEDS: POTASSIUM CHLORIDE 20 MEQ TABLET.ER. PO SCH (08:51)
[2018-03-09] MEDS: DOCUSATE SODIUM 100 MG CAPSULE PO SCH ×2 (08:51→19:47)
[2018-03-09] MEDS: FLECAINIDE 50 MG TABLET. PO SCH ×2 (08:52→19:52)
[2018-03-09 16:29] VITALS: BP 144/80
[2018-03-09] MEDS: TAMSULOSIN 0.4 MG CAP.ER.24H. PO SCH (19:48)
[2018-03-09] MEDS: traZODone 50 MG TABLET. PO SCH (19:51)
[2018-03-09] MEDS: risperiDONE ORAL 1 MG/ML 30ml BOTTLE. SL SCH (19:53)
--- NOTE | 2018-03-09 20:51 | PDOC ---
Exam Note: Óscar Note: Please also refer to the separate dictated note~for this date of service dictated separately.~Patient seen individually. Discussed the patient with Nursing staff reviewed the chart.~Reviewed interim history and current functioning. Reviewed vital signs,~Labs/ Radiology~and current medications noted below. Continue current treatment with the changes noted in the dictated addendum note Assessment: Vital Signs: Vital Signs Date Time Temp Pulse Resp B/P (MAP) Pulse Ox O2 Delivery O2 Flow Rate FiO2 03/09/18 19:52 66 144/80 03/09/18 16:29 97.4 20 96 I&O Intake and Output 03/09/18 07:00 Intake Total 1200 ml Balance 1200 ml Intake Oral 1200 ml # Voids 1 Current Medications: Meds: Current Medications Acetaminophen (Tylenol) 650 mg PRN Q6HRS PRN PO PAIN / TEMP; Start 02/12/18 at 11:15 Multi-Ingredient Ointment (Analgesic [place]) 1 nicole PRN QID PRN TP MUSCLE PAIN; Start 02/12/18 at 11:15 Al Hydroxide/Mg Hydroxide (Mylanta Plus Xs) 15 ml PRN AFTMEALHC PRN PO DYSPEPSIA; Start 02/12/18 at 11:15 Magnesium Hydroxide (Milk Of Magnesia) 2,400 mg PRN QHS PRN PO CONSTIPATION; Start 02/12/18 at 11:15 Acetaminophen (Tylenol) 650 mg PRN Q6HRS PRN PO PAIN; Start 02/12/18 at 12:00; Status Cancel Metoprolol Tartrate (Lopressor) 25 mg BID PO Last administered on 03/04/18at 08: 02; Start 02/12/18 at 21:00; Stop 03/04/18 at 17:14; Status DC Tamsulosin HCl (Flomax) 0.4 mg HS PO Last administered on 03/09/18at 19:48; Start 02/12/18 at 21:00 Aspirin (Children'S Aspirin) 81 mg DAILYWBKFT PO Last administered on 03/09/18at 08:50; Start 02/13/18 at 08:00 Docusate Sodium (Colace) 100 mg BID PO Last administered on 03/09/18at 19:47; Start 02/12/18 at 21:00 Flecainide Acetate (Tambocor) 50 mg BID PO Last administered on 03/09/18 19:52 ; Start 02/12/18 at 21:00 Memantine (Namenda) 10 mg BID PO Last administered on 03/09/18 19:48; Start 02/12/18 at 21:00 Ketotifen Fumarate (Zaditor) 1 drop BID OU Last administered on 02/24/18 20:26 ; Start 02/12/18 at 21:00; Stop 02/26/18 at 16:34; Status DC Potassium Chloride (Klor-Con) 20 meq DAILYWBKFT PO Last administered on 08:51; Start 02/13/18 at 08:00 Witch Dorothy/ Glycerin (A.e.r Pads) 1 each PRN BID PRN TP hemorrhoids Last administered on 02/15/18 10:00; Start 02/12/18 at 12:00 Lactulose (Lactulose) 10 gm TID PRN PO CONSTIPATION Last administered on 20:22; Start 02/12/18 at 12:00; Stop 02/25/18 at 01:57; Status DC Fluoxetine HCl (PROzac) 10 mg DAILY PO Last administered on 02/16/18 09:08; Start 02/14/18 at 09:00; Stop 02/16/18 at 13:50; Status DC Risperidone (RisperDAL) 0.25 mg HS SL Last administered on 03/09/18 19:53; Start 02/13/18 at 22:30 Vitamin D (Vitamin D3) 50,000 unit WEEKLY PO Last administered on 03/07/18 09: 19; Start 02/14/18 at 13:30 Phenylephrine/ Shark Liver Oil (Preparation H) 1 supp PRN Q8HRS PRN ME RECTAL PAIN Last administered on 02/15/18 17:28; Start 02/15/18 at 14:45 Fluvoxamine Maleate (Luvox) 25 mg DAILY PO Last administered on 02/18/18 08:05 ; Start 02/17/18 at 09:00; Stop 02/18/18 at 16:17; Status DC Fluvoxamine Maleate (Luvox) 50 mg DAILY PO Last administered on 02/21/18at 08:12 ; Start 02/19/18 at 09:00; Stop 02/21/18 at 12:00; Status DC Fluvoxamine Maleate (Luvox) 75 mg DAILY PO Last administered on 02/26/18at 08:13 ; Start 02/21/18 at 09:00; Stop 02/26/18 at 09:56; Status DC Lactulose (Lactulose) 10 gm PRN TID PRN PO CONSTIPATION Last administered on at 09:44; Start 02/25/18 at 02:00 Fluvoxamine Maleate (Luvox) 100 mg DAILY PO Last administered on 03/09/18at 08:51 ; Start 02/27/18 at 09:00 Ketotifen Fumarate (Zaditor) 1 drop PRN BID PRN OU ALLERGIES; Start 02/26/18 at 16:45 Metoprolol Tartrate (Lopressor) 12.5 mg BID PO Last administered on 03/06/18at 19:36; Start 03/04/18 at 21:00; Stop 03/07/18 at 15:42; Status DC Trazodone HCl (Desyrel) 50 mg PRN QHS PRN PO insomnia; Start 03/04/18 at 18:00 Trazodone HCl (Desyrel) 50 mg QHS PO Last administered on 03/09/18at 19:51; Start 03/04/18 at 21:00 Active Scripts Active Flecainide Acetate 100 Mg Tablet 50 Mg PO Q12HR 90 Days Reported Maria Victoria (Jose L De La Cruz) 1 Each Med..pad 1 Each TP PRN BID PRN Pataday (Olopatadine Hcl) 2.5 Ml Drops 1 Drop EACHEYE BID Metoprolol Tartrate 25 Mg Tablet 25 Mg PO BID Lactulose 10 Gm/15 Ml Solution 10 Gm PO Flecainide Acetate 50 Mg Tablet 50 Mg PO BID Aspirin 81 Mg Tab.chew 81 Mg PO DAILY Risperdal (Risperidone) 0.5 Mg Tablet 0.5 Mg SL QHS Coreg (Carvedilol) 3.125 Mg Tablet 3.125 Mg PO BIDWMEALS Olanzapine 5 Mg Tablet 1.25 Mg PO PRN PRN MDD 5mg/24hrs Namenda (Memantine Hcl) 10 Mg Tablet 10 Mg PO BID Prozac (Fluoxetine Hcl) 40 Mg Capsule 40 Mg PO DAILY Flomax (Tamsulosin Hcl) 0.4 Mg Cap.er.24h 4.6 Mg PO HS Zaditor (Ketotifen Fumarate) 5 Ml Drops 1 Drop EACHEYE BID Vitamin D3 (Cholecalciferol (Vitamin D3)) 5,000 Unit Tablet 50,000 Unit PO WEEKLY FRIDAY Tylenol (Acetaminophen) 325 Mg Tablet 650 Mg PO PRN Q6HRS PRN Colace (Docusate Sodium) 100 Mg Capsule 1 Cap PO BID Potassium Chloride Oral Liquid (Potassium Chloride) 20 Meq/15 Ml Liquid 20 Meq PO DAILY LAST DOSE GIVEN: DATE: TIME: NEXT DOSE DUE: DATE: TIME: I have reviewed the current psychotropics carefully including drug interactions. Risk benefit ratio favors no change other than as noted in my dictated progress note. Diagnosis: Problems: (1) Anxiety disorder (2) Mild cognitive disorder (3) Impulse control disorder (4) Major depressive disorder, recurrent episode (5) Syncopal episodes (6) Weakness (7) PSVT (paroxysmal supraventricular tachycardia) (8) Cardiac syncope (9) Suicidal ideation CHELSEA RINCON MD Mar 09, 2018 20:51
[2018-03-10 05:46] VITALS: BP 154/86
[2018-03-10] MEDS: POTASSIUM CHLORIDE 20 MEQ TABLET.ER. PO SCH (08:00)
[2018-03-10] MEDS: ASPIRIN 81 MG TAB.CHEW PO SCH (08:31)
[2018-03-10] MEDS: DOCUSATE SODIUM 100 MG CAPSULE PO SCH ×2 (08:31→19:54)
[2018-03-10] MEDS: MEMANTINE 10 MG TABLET. PO SCH ×2 (08:32→19:54)
[2018-03-10] MEDS: FLECAINIDE 50 MG TABLET. PO SCH ×2 (08:37→19:54)
[2018-03-10 16:42] VITALS: BP 135/78
[2018-03-10] MEDS: TAMSULOSIN 0.4 MG CAP.ER.24H. PO SCH (19:54)
[2018-03-10] MEDS: risperiDONE ORAL 1 MG/ML 30ml BOTTLE. SL SCH (19:54)
[2018-03-10] MEDS: traZODone 50 MG TABLET. PO SCH (19:54)
--- NOTE | 2018-03-10 20:54 | PDOC ---
Exam Note: Óscar Note: Please also refer to the separate dictated note~for this date of service dictated separately.~Patient seen individually. Discussed the patient with Nursing staff reviewed the chart.~Reviewed interim history and current functioning. Reviewed vital signs,~Labs/ Radiology~and current medications noted below. Continue current treatment with the changes noted in the dictated addendum note Assessment: Vital Signs: Vital Signs Date Time Temp Pulse Resp B/P (MAP) Pulse Ox O2 Delivery O2 Flow Rate FiO2 03/10/18 19:54 67 135/78 03/10/18 16:42 98.4 16 96 I&O Intake and Output 03/10/18 07:00 Intake Total 1010 ml Balance 1010 ml Intake Oral 1010 ml # Voids 1 Current Medications: Meds: Current Medications Acetaminophen (Tylenol) 650 mg PRN Q6HRS PRN PO PAIN / TEMP; Start 02/12/18 at 11:15 Multi-Ingredient Ointment (Analgesic [place]) 1 nicole PRN QID PRN TP MUSCLE PAIN; Start 02/12/18 at 11:15 Al Hydroxide/Mg Hydroxide (Mylanta Plus Xs) 15 ml PRN AFTMEALHC PRN PO DYSPEPSIA; Start 02/12/18 at 11:15 Magnesium Hydroxide (Milk Of Magnesia) 2,400 mg PRN QHS PRN PO CONSTIPATION; Start 02/12/18 at 11:15 Acetaminophen (Tylenol) 650 mg PRN Q6HRS PRN PO PAIN; Start 02/12/18 at 12:00; Status Cancel Metoprolol Tartrate (Lopressor) 25 mg BID PO Last administered on 03/04/18at 08: 02; Start 02/12/18 at 21:00; Stop 03/04/18 at 17:14; Status DC Tamsulosin HCl (Flomax) 0.4 mg HS PO Last administered on 03/10/18at 19:54; Start 02/12/18 at 21:00 Aspirin (Children'S Aspirin) 81 mg DAILYWBKFT PO Last administered on 03/10/18at 08:31; Start 02/13/18 at 08:00 Docusate Sodium (Colace) 100 mg BID PO Last administered on 03/10/18at 19:54; Start 02/12/18 at 21:00 Flecainide Acetate (Tambocor) 50 mg BID PO Last administered on 03/10/18 19:54 ; Start 02/12/18 at 21:00 Memantine (Namenda) 10 mg BID PO Last administered on 03/10/18 19:54; Start 02/12/18 at 21:00 Ketotifen Fumarate (Zaditor) 1 drop BID OU Last administered on 02/24/18 20:26 ; Start 02/12/18 at 21:00; Stop 02/26/18 at 16:34; Status DC Potassium Chloride (Klor-Con) 20 meq DAILYWBKFT PO Last administered on 08:00; Start 02/13/18 at 08:00 Witch Dorothy/ Glycerin (A.e.r Pads) 1 each PRN BID PRN TP hemorrhoids Last administered on 02/15/18 10:00; Start 02/12/18 at 12:00 Lactulose (Lactulose) 10 gm TID PRN PO CONSTIPATION Last administered on 20:22; Start 02/12/18 at 12:00; Stop 02/25/18 at 01:57; Status DC Fluoxetine HCl (PROzac) 10 mg DAILY PO Last administered on 02/16/18 09:08; Start 02/14/18 at 09:00; Stop 02/16/18 at 13:50; Status DC Risperidone (RisperDAL) 0.25 mg HS SL Last administered on 03/10/18 19:54; Start 02/13/18 at 22:30 Vitamin D (Vitamin D3) 50,000 unit WEEKLY PO Last administered on 03/07/18 09: 19; Start 02/14/18 at 13:30 Phenylephrine/ Shark Liver Oil (Preparation H) 1 supp PRN Q8HRS PRN IN RECTAL PAIN Last administered on 02/15/18 17:28; Start 02/15/18 at 14:45 Fluvoxamine Maleate (Luvox) 25 mg DAILY PO Last administered on 02/18/18 08:05 ; Start 02/17/18 at 09:00; Stop 02/18/18 at 16:17; Status DC Fluvoxamine Maleate (Luvox) 50 mg DAILY PO Last administered on 02/21/18at 08:12 ; Start 02/19/18 at 09:00; Stop 02/21/18 at 12:00; Status DC Fluvoxamine Maleate (Luvox) 75 mg DAILY PO Last administered on 02/26/18at 08:13 ; Start 02/21/18 at 09:00; Stop 02/26/18 at 09:56; Status DC Lactulose (Lactulose) 10 gm PRN TID PRN PO CONSTIPATION Last administered on at 09:44; Start 02/25/18 at 02:00 Fluvoxamine Maleate (Luvox) 100 mg DAILY PO Last administered on 03/10/18at 08:31 ; Start 02/27/18 at 09:00 Ketotifen Fumarate (Zaditor) 1 drop PRN BID PRN OU ALLERGIES; Start 02/26/18 at 16:45 Metoprolol Tartrate (Lopressor) 12.5 mg BID PO Last administered on 03/06/18at 19:36; Start 03/04/18 at 21:00; Stop 03/07/18 at 15:42; Status DC Trazodone HCl (Desyrel) 50 mg PRN QHS PRN PO insomnia; Start 03/04/18 at 18:00 Trazodone HCl (Desyrel) 50 mg QHS PO Last administered on 03/10/18at 19:54; Start 03/04/18 at 21:00 Active Scripts Active Flecainide Acetate 100 Mg Tablet 50 Mg PO Q12HR 90 Days Reported Kevins (Jose L De La Cruz) 1 Each Med..pad 1 Each TP PRN BID PRN Pataday (Olopatadine Hcl) 2.5 Ml Drops 1 Drop EACHEYE BID Metoprolol Tartrate 25 Mg Tablet 25 Mg PO BID Lactulose 10 Gm/15 Ml Solution 10 Gm PO Flecainide Acetate 50 Mg Tablet 50 Mg PO BID Aspirin 81 Mg Tab.chew 81 Mg PO DAILY Risperdal (Risperidone) 0.5 Mg Tablet 0.5 Mg SL QHS Coreg (Carvedilol) 3.125 Mg Tablet 3.125 Mg PO BIDWMEALS Olanzapine 5 Mg Tablet 1.25 Mg PO PRN PRN MDD 5mg/24hrs Namenda (Memantine Hcl) 10 Mg Tablet 10 Mg PO BID Prozac (Fluoxetine Hcl) 40 Mg Capsule 40 Mg PO DAILY Flomax (Tamsulosin Hcl) 0.4 Mg Cap.er.24h 4.6 Mg PO HS Zaditor (Ketotifen Fumarate) 5 Ml Drops 1 Drop EACHEYE BID Vitamin D3 (Cholecalciferol (Vitamin D3)) 5,000 Unit Tablet 50,000 Unit PO WEEKLY FRIDAY Tylenol (Acetaminophen) 325 Mg Tablet 650 Mg PO PRN Q6HRS PRN Colace (Docusate Sodium) 100 Mg Capsule 1 Cap PO BID Potassium Chloride Oral Liquid (Potassium Chloride) 20 Meq/15 Ml Liquid 20 Meq PO DAILY LAST DOSE GIVEN: DATE: TIME: NEXT DOSE DUE: DATE: TIME: I have reviewed the current psychotropics carefully including drug interactions. Risk benefit ratio favors no change other than as noted in my dictated progress note. Diagnosis: Problems: (1) Anxiety disorder (2) Mild cognitive disorder (3) Impulse control disorder (4) Major depressive disorder, recurrent episode (5) Syncopal episodes (6) Weakness (7) PSVT (paroxysmal supraventricular tachycardia) (8) Cardiac syncope (9) Suicidal ideation CHELSEA RINCON MD Mar 10, 2018 20:54
--- NOTE | 2018-03-11 01:11 | PN ---
DATE: 03/09/2018 PSYCHIATRIC PROGRESS NOTE This is a late entry 03/09/2018 covers elements not covered in my initial note. SUBJECTIVE: I met with the patient in the evening. The patient slept 6-1/4 hours previous night. He was up until 2 a.m. He did have a fall, no injury noted. REVIEW OF SYSTEMS: No CV, , pulmonary, eye system symptoms on review, met with him in his room, quite withdrawn. MENTAL STATUS EXAM: Speech, low in rate and rhythm, often responses monosyllabic. Abstraction fair, computation impaired, language function intact, attention span short. Mood and affect withdrawn, but improved. LABORATORY DATA: Reviewed. IMPRESSION: Unchanged from initial note. PLAN: No change from initial note. MAN Huan RINCON MD DR: SHAZIA/shanta JOB#: [id number] / [id number]
--- NOTE | 2018-03-11 01:15 | PN ---
DATE: 03/08/2018 This is a late entry, 03/08/2018, covers the elements not covered in my initial note. SUBJECTIVE: I met with the patient in the evening, the patient slept 7-3/4 hours the previous night. He has had some visitors and he has had a good day. REVIEW OF SYSTEMS: Ambulation impaired, spends much time in his room. Does ambulate [place]. No CV, , pulmonary, eye system symptoms on review, still has some . MENTAL STATUS EXAM: Reasonably oriented to himself and situation. Speech has some latency, low in rate and rhythm, low in volume, often responses monosyllabic. Abstraction fair, computation impaired, language function intact, attention span short. Mood and affect somewhat withdrawn. LABORATORY DATA: Reviewed. IMPRESSION: Unchanged from initial note. PLAN: No change from initial note. MAN Huan RINCON MD DR: SHAZIA/shanta JOB#: [id number] / [id number]
[2018-03-11 06:20] VITALS: BP 127/77
[2018-03-11] MEDS: POTASSIUM CHLORIDE 20 MEQ TABLET.ER. PO SCH (07:44)
[2018-03-11] MEDS: ASPIRIN 81 MG TAB.CHEW PO SCH (07:44)
[2018-03-11] MEDS: FLECAINIDE 50 MG TABLET. PO SCH ×2 (07:45→20:38)
[2018-03-11] MEDS: MEMANTINE 10 MG TABLET. PO SCH ×2 (07:45→20:38)
[2018-03-11] MEDS: DOCUSATE SODIUM 100 MG CAPSULE PO SCH ×2 (07:46→20:38)
[2018-03-11 16:46] VITALS: BP 161/90
[2018-03-11] MEDS: risperiDONE ORAL 1 MG/ML 30ml BOTTLE. SL SCH (20:38)
[2018-03-11] MEDS: TAMSULOSIN 0.4 MG CAP.ER.24H. PO SCH (20:38)
[2018-03-11] MEDS: traZODone 50 MG TABLET. PO SCH (20:38)
--- NOTE | 2018-03-11 20:52 | PDOC ---
Exam Note: Óscar Note: Please also refer to the separate dictated note~for this date of service dictated separately.~Patient seen individually. Discussed the patient with Nursing staff reviewed the chart.~Reviewed interim history and current functioning. Reviewed vital signs,~Labs/ Radiology~and current medications noted below. Continue current treatment with the changes noted in the dictated addendum note Assessment: Vital Signs: Vital Signs Date Time Temp Pulse Resp B/P (MAP) Pulse Ox O2 Delivery O2 Flow Rate FiO2 03/11/18 20:38 65 161/90 03/11/18 16:46 97.9 18 96 I&O Intake and Output 03/11/18 07:00 Intake Total 600 ml Balance 600 ml Intake Oral 600 ml Current Medications: Meds: Current Medications Acetaminophen (Tylenol) 650 mg PRN Q6HRS PRN PO PAIN / TEMP; Start 02/12/18 at 11:15 Multi-Ingredient Ointment (Analgesic [place]) 1 nicole PRN QID PRN TP MUSCLE PAIN; Start 02/12/18 at 11:15 Al Hydroxide/Mg Hydroxide (Mylanta Plus Xs) 15 ml PRN AFTMEALHC PRN PO DYSPEPSIA; Start 02/12/18 at 11:15 Magnesium Hydroxide (Milk Of Magnesia) 2,400 mg PRN QHS PRN PO CONSTIPATION; Start 02/12/18 at 11:15 Acetaminophen (Tylenol) 650 mg PRN Q6HRS PRN PO PAIN; Start 02/12/18 at 12:00; Status Cancel Metoprolol Tartrate (Lopressor) 25 mg BID PO Last administered on 03/04/18at 08: 02; Start 02/12/18 at 21:00; Stop 03/04/18 at 17:14; Status DC Tamsulosin HCl (Flomax) 0.4 mg HS PO Last administered on 03/11/18at 20:38; Start 02/12/18 at 21:00 Aspirin (Children'S Aspirin) 81 mg DAILYWBKFT PO Last administered on 03/11/18at 07:44; Start 02/13/18 at 08:00 Docusate Sodium (Colace) 100 mg BID PO Last administered on 03/11/18at 20:38; Start 02/12/18 at 21:00 Flecainide Acetate (Tambocor) 50 mg BID PO Last administered on 03/11/18 20:38 ; Start 02/12/18 at 21:00 Memantine (Namenda) 10 mg BID PO Last administered on 03/11/18 20:38; Start 02/12/18 at 21:00 Ketotifen Fumarate (Zaditor) 1 drop BID OU Last administered on 02/24/18 20:26 ; Start 02/12/18 at 21:00; Stop 02/26/18 at 16:34; Status DC Potassium Chloride (Klor-Con) 20 meq DAILYWBKFT PO Last administered on 07:44; Start 02/13/18 at 08:00 Witch [place]/ Glycerin (A.e.r Pads) 1 each PRN BID PRN TP hemorrhoids Last administered on 02/15/18 10:00; Start 02/12/18 at 12:00 Lactulose (Lactulose) 10 gm TID PRN PO CONSTIPATION Last administered on 20:22; Start 02/12/18 at 12:00; Stop 02/25/18 at 01:57; Status DC Fluoxetine HCl (PROzac) 10 mg DAILY PO Last administered on 02/16/18 09:08; Start 02/14/18 at 09:00; Stop 02/16/18 at 13:50; Status DC Risperidone (RisperDAL) 0.25 mg HS SL Last administered on 03/11/18 20:38; Start 02/13/18 at 22:30 Vitamin D (Vitamin D3) 50,000 unit WEEKLY PO Last administered on 03/07/18 09: 19; Start 02/14/18 at 13:30 Phenylephrine/ Shark Liver Oil (Preparation H) 1 supp PRN Q8HRS PRN [place] RECTAL PAIN Last administered on 02/15/18 17:28; Start 02/15/18 at 14:45 Fluvoxamine Maleate (Luvox) 25 mg DAILY PO Last administered on 02/18/18 08:05 ; Start 02/17/18 at 09:00; Stop 02/18/18 at 16:17; Status DC Fluvoxamine Maleate (Luvox) 50 mg DAILY PO Last administered on 02/21/18 08:12 ; Start 02/19/18 at 09:00; Stop 02/21/18 at 12:00; Status DC Fluvoxamine Maleate (Luvox) 75 mg DAILY PO Last administered on 02/26/18at 08:13 ; Start 02/21/18 at 09:00; Stop 02/26/18 at 09:56; Status DC Lactulose (Lactulose) 10 gm PRN TID PRN PO CONSTIPATION Last administered on at 09:44; Start 02/25/18 at 02:00 Fluvoxamine Maleate (Luvox) 100 mg DAILY PO Last administered on 03/11/18at 07:45 ; Start 02/27/18 at 09:00 Ketotifen Fumarate (Zaditor) 1 drop PRN BID PRN OU ALLERGIES; Start 02/26/18 at 16:45 Metoprolol Tartrate (Lopressor) 12.5 mg BID PO Last administered on 03/06/18at 19:36; Start 03/04/18 at 21:00; Stop 03/07/18 at 15:42; Status DC Trazodone HCl (Desyrel) 50 mg PRN QHS PRN PO insomnia; Start 03/04/18 at 18:00 Trazodone HCl (Desyrel) 50 mg QHS PO Last administered on 03/11/18at 20:38; Start 03/04/18 at 21:00 Active Scripts Active Flecainide Acetate 100 Mg Tablet 50 Mg PO Q12HR 90 Days Reported Maria Victoria (Jose L De La Cruz) 1 Each Med..pad 1 Each TP PRN BID PRN Pataday (Olopatadine Hcl) 2.5 Ml Drops 1 Drop EACHEYE BID Metoprolol Tartrate 25 Mg Tablet 25 Mg PO BID Lactulose 10 Gm/15 Ml Solution 10 Gm PO Flecainide Acetate 50 Mg Tablet 50 Mg PO BID Aspirin 81 Mg Tab.chew 81 Mg PO DAILY Risperdal (Risperidone) 0.5 Mg Tablet 0.5 Mg SL QHS Coreg (Carvedilol) 3.125 Mg Tablet 3.125 Mg PO BIDWMEALS Olanzapine 5 Mg Tablet 1.25 Mg PO PRN PRN MDD 5mg/24hrs Namenda (Memantine Hcl) 10 Mg Tablet 10 Mg PO BID Prozac (Fluoxetine Hcl) 40 Mg Capsule 40 Mg PO DAILY Flomax (Tamsulosin Hcl) 0.4 Mg Cap.er.24h 4.6 Mg PO HS Zaditor (Ketotifen Fumarate) 5 Ml Drops 1 Drop EACHEYE BID Vitamin D3 (Cholecalciferol (Vitamin D3)) 5,000 Unit Tablet 50,000 Unit PO WEEKLY FRIDAY Tylenol (Acetaminophen) 325 Mg Tablet 650 Mg PO PRN Q6HRS PRN Colace (Docusate Sodium) 100 Mg Capsule 1 Cap PO BID Potassium Chloride Oral Liquid (Potassium Chloride) 20 Meq/15 Ml Liquid 20 Meq PO DAILY LAST DOSE GIVEN: DATE: TIME: NEXT DOSE DUE: DATE: TIME: I have reviewed the current psychotropics carefully including drug interactions. Risk benefit ratio favors no change other than as noted in my dictated progress note. Diagnosis: Problems: (1) Anxiety disorder (2) Mild cognitive disorder (3) Impulse control disorder (4) Major depressive disorder, recurrent episode (5) Syncopal episodes (6) Weakness (7) PSVT (paroxysmal supraventricular tachycardia) (8) Cardiac syncope (9) Suicidal ideation CHELSEA RINCON MD Mar 11, 2018 20:52
--- NOTE | 2018-03-11 23:07 | PN ---
DATE: 03/10/2018 PSYCHIATRIC PROGRESS NOTE This late entry 03/10/2018 covers elements not covered in my initial note. SUBJECTIVE: Met with the patient in the evening in his room. The patient slept 8-3/4 hours previous evening. He remains somewhat withdrawn, less obsessed regarding his bowel. REVIEW OF SYSTEMS: No CV, , pulmonary, eye system symptoms on review. MENTAL STATUS EXAM: Oriented to himself and situation. Speech has some latency, coherent, low in volume. Abstraction fair, computation impaired, language function is intact, attention span short. Mood and affect still withdrawn, but less so than before, less obsessive, but no suicidal or homicidal ideation. LABORATORY DATA: Reviewed. IMPRESSION: Unchanged from initial note. PLAN: No change from initial note. MAN Huan RINCON MD DR: SHAZIA/shanta JOB#: [id number] / [id number]
[2018-03-12 06:11] VITALS: BP 135/83
[2018-03-12 06:44] LABS: CALCIUM 8.9 mg/dL (8.5-10.1); CREATININE 0.8 mg/dL (0.7-1.3); GFR 91.4; POTASSIUM 3.9 mmol/L (3.5-5.1)
[2018-03-12] MEDS: DOCUSATE SODIUM 100 MG CAPSULE PO SCH ×2 (09:07→19:38)
[2018-03-12] MEDS: ASPIRIN 81 MG TAB.CHEW PO SCH (09:07)
[2018-03-12] MEDS: POTASSIUM CHLORIDE 20 MEQ TABLET.ER. PO SCH (09:07)
[2018-03-12] MEDS: MEMANTINE 10 MG TABLET. PO SCH ×2 (09:08→19:39)
[2018-03-12] MEDS: FLECAINIDE 50 MG TABLET. PO SCH ×2 (09:09→19:38)
[2018-03-12 16:29] VITALS: BP 152/90
[2018-03-12] MEDS: traZODone 50 MG TABLET. PO SCH (19:38)
[2018-03-12] MEDS: TAMSULOSIN 0.4 MG CAP.ER.24H. PO SCH (19:38)
[2018-03-12] MEDS: risperiDONE ORAL 1 MG/ML 30ml BOTTLE. SL SCH (19:39)
--- NOTE | 2018-03-12 20:55 | PDOC ---
Exam Note: Óscar Note: Please also refer to the separate dictated note~for this date of service dictated separately.~Patient seen individually. Discussed the patient with Nursing staff reviewed the chart.~Reviewed interim history and current functioning. Reviewed vital signs,~Labs/ Radiology~and current medications noted below. Continue current treatment with the changes noted in the dictated addendum note Assessment: Vital Signs: Vital Signs Date Time Temp Pulse Resp B/P (MAP) Pulse Ox O2 Delivery O2 Flow Rate FiO2 03/12/18 19:38 67 152/90 03/12/18 16:29 97.6 17 98 Room Air I&O Intake and Output 03/12/18 07:00 Intake Total 440 ml Balance 440 ml Intake Oral 440 ml Labs: Laboratory Tests Test 03/12/18 06:09 Sodium Level 139 mmol/L (136-145) Potassium Level 3.9 mmol/L (3.5-5.1) Chloride Level 104 mmol/L (98-107) Carbon Dioxide Level 30 mmol/L (21-32) Anion Gap 5 (6-14) L Blood Urea Nitrogen 14 mg/dL (8-26) Creatinine 0.8 mg/dL (0.7-1.3) Estimated GFR (Cockcroft-Gault) 91.4 Glucose Level 81 mg/dL (70-99) Calcium Level 8.9 mg/dL (8.5-10.1) Current Medications: Meds: Current Medications Acetaminophen (Tylenol) 650 mg PRN Q6HRS PRN PO PAIN / TEMP; Start 02/12/18 at 11:15 Multi-Ingredient Ointment (Analgesic [place]) 1 nicole PRN QID PRN TP MUSCLE PAIN; Start 02/12/18 at 11:15 Al Hydroxide/Mg Hydroxide (Mylanta Plus Xs) 15 ml PRN AFTMEALHC PRN PO DYSPEPSIA; Start 02/12/18 at 11:15 Magnesium Hydroxide (Milk Of Magnesia) 2,400 mg PRN QHS PRN PO CONSTIPATION; Start 02/12/18 at 11:15 Acetaminophen (Tylenol) 650 mg PRN Q6HRS PRN PO PAIN; Start 02/12/18 at 12:00; Status Cancel Metoprolol Tartrate (Lopressor) 25 mg BID PO Last administered on 03/04/18at 08: 02; Start 02/12/18 at 21:00; Stop 03/04/18 at 17:14; Status DC Tamsulosin HCl (Flomax) 0.4 mg HS PO Last administered on 03/12/18 19:38; Start 02/12/18 at 21:00 Aspirin (Children'S Aspirin) 81 mg DAILYWBKFT PO Last administered on 03/12/18 09:07; Start 02/13/18 at 08:00 Docusate Sodium (Colace) 100 mg BID PO Last administered on 03/12/18 19:38; Start 02/12/18 at 21:00 Flecainide Acetate (Tambocor) 50 mg BID PO Last administered on 03/12/18 19:38 ; Start 02/12/18 at 21:00 Memantine (Namenda) 10 mg BID PO Last administered on 03/12/18 19:39; Start 02/12/18 at 21:00 Ketotifen Fumarate (Zaditor) 1 drop BID OU Last administered on 02/24/18 20:26 ; Start 02/12/18 at 21:00; Stop 02/26/18 at 16:34; Status DC Potassium Chloride (Klor-Con) 20 meq DAILYWBKFT PO Last administered on 09:07; Start 02/13/18 at 08:00 Witch Dorothy/ Glycerin (A.e.r Pads) 1 each PRN BID PRN TP hemorrhoids Last administered on 02/15/18 10:00; Start 02/12/18 at 12:00 Lactulose (Lactulose) 10 gm TID PRN PO CONSTIPATION Last administered on at 20:22; Start 02/12/18 at 12:00; Stop 02/25/18 at 01:57; Status DC Fluoxetine HCl (PROzac) 10 mg DAILY PO Last administered on 02/16/18 09:08; Start 02/14/18 at 09:00; Stop 02/16/18 at 13:50; Status DC Risperidone (RisperDAL) 0.25 mg HS SL Last administered on 03/12/18 19:39; Start 02/13/18 at 22:30 Vitamin D (Vitamin D3) 50,000 unit WEEKLY PO Last administered on 03/07/18 09: 19; Start 02/14/18 at 13:30 Phenylephrine/ Shark Liver Oil (Preparation H) [address] RECTAL PAIN Last administered on 02/15/18at 17:28; Start 02/15/18 at 14:45 Fluvoxamine Maleate (Luvox) 25 mg DAILY PO Last administered on 02/18/18at 08:05 ; Start 02/17/18 at 09:00; Stop 02/18/18 at 16:17; Status DC Fluvoxamine Maleate (Luvox) 50 mg DAILY PO Last administered on 02/21/18at 08:12 ; Start 02/19/18 at 09:00; Stop 02/21/18 at 12:00; Status DC Fluvoxamine Maleate (Luvox) 75 mg DAILY PO Last administered on 02/26/18at 08:13 ; Start 02/21/18 at 09:00; Stop 02/26/18 at 09:56; Status DC Lactulose (Lactulose) 10 gm PRN TID PRN PO CONSTIPATION Last administered on at 09:44; Start 02/25/18 at 02:00 Fluvoxamine Maleate (Luvox) 100 mg DAILY PO Last administered on 03/12/18at 09:07 ; Start 02/27/18 at 09:00 Ketotifen Fumarate (Zaditor) 1 drop PRN BID PRN OU ALLERGIES; Start 02/26/18 at 16:45 Metoprolol Tartrate (Lopressor) 12.5 mg BID PO Last administered on 03/06/18at 19:36; Start 03/04/18 at 21:00; Stop 03/07/18 at 15:42; Status DC Trazodone HCl (Desyrel) 50 mg PRN QHS PRN PO insomnia; Start 03/04/18 at 18:00 Trazodone HCl (Desyrel) 50 mg QHS PO Last administered on 03/12/18at 19:38; Start 03/04/18 at 21:00 Active Scripts Active Flecainide Acetate 100 Mg Tablet 50 Mg PO Q12HR 90 Days Reported Tucks (Witch Dorothy) 1 Each Med..pad 1 Each TP PRN BID PRN Pataday (Olopatadine Hcl) 2.5 Ml Drops 1 Drop EACHEYE BID Metoprolol Tartrate 25 Mg Tablet 25 Mg PO BID Lactulose 10 Gm/15 Ml Solution 10 Gm PO Flecainide Acetate 50 Mg Tablet 50 Mg PO BID Aspirin 81 Mg Tab.chew 81 Mg PO DAILY Risperdal (Risperidone) 0.5 Mg Tablet 0.5 Mg SL QHS Coreg (Carvedilol) 3.125 Mg Tablet 3.125 Mg PO BIDWMEALS Olanzapine 5 Mg Tablet 1.25 Mg PO PRN PRN MDD 5mg/24hrs Namenda (Memantine Hcl) 10 Mg Tablet 10 Mg PO BID Prozac (Fluoxetine Hcl) 40 Mg Capsule 40 Mg PO DAILY Flomax (Tamsulosin Hcl) 0.4 Mg Cap.er.24h 4.6 Mg PO HS Zaditor (Ketotifen Fumarate) 5 Ml Drops 1 Drop EACHEYE BID Vitamin D3 (Cholecalciferol (Vitamin D3)) 5,000 Unit Tablet 50,000 Unit PO WEEKLY FRIDAY Tylenol (Acetaminophen) 325 Mg Tablet 650 Mg PO PRN Q6HRS PRN Colace (Docusate Sodium) 100 Mg Capsule 1 Cap PO BID Potassium Chloride Oral Liquid (Potassium Chloride) 20 Meq/15 Ml Liquid 20 Meq PO DAILY LAST DOSE GIVEN: DATE: TIME: NEXT DOSE DUE: DATE: TIME: I have reviewed the current psychotropics carefully including drug interactions. Risk benefit ratio favors no change other than as noted in my dictated progress note. Diagnosis: Problems: (1) Anxiety disorder (2) Mild cognitive disorder (3) Impulse control disorder (4) Major depressive disorder, recurrent episode (5) Syncopal episodes (6) Weakness (7) PSVT (paroxysmal supraventricular tachycardia) (8) Cardiac syncope (9) Suicidal ideation CHELSEA RINCON MD Mar 12, 2018 20:55
[2018-03-13 06:53] VITALS: BP 133/85
[2018-03-13] MEDS: FLECAINIDE 50 MG TABLET. PO SCH ×2 (08:02→20:16)
[2018-03-13] MEDS: DOCUSATE SODIUM 100 MG CAPSULE PO SCH ×2 (08:03→20:14)
[2018-03-13] MEDS: MEMANTINE 10 MG TABLET. PO SCH ×2 (08:03→20:14)
[2018-03-13] MEDS: POTASSIUM CHLORIDE 20 MEQ TABLET.ER. PO SCH (08:03)
[2018-03-13] MEDS: ASPIRIN 81 MG TAB.CHEW PO SCH (08:04)
[2018-03-13 16:00] VITALS: BP 146/84
[2018-03-13] MEDS: traZODone 50 MG TABLET. PO SCH (20:14)
[2018-03-13] MEDS: TAMSULOSIN 0.4 MG CAP.ER.24H. PO SCH (20:14)
[2018-03-13] MEDS: risperiDONE ORAL 1 MG/ML 30ml BOTTLE. SL SCH (20:16)
--- NOTE | 2018-03-13 20:45 | PDOC ---
Exam Note: Óscar Note: Please also refer to the separate dictated note~for this date of service dictated separately.~Patient seen individually. Discussed the patient with Nursing staff reviewed the chart.~Reviewed interim history and current functioning. Reviewed vital signs,~Labs/ Radiology~and current medications noted below. Continue current treatment with the changes noted in the dictated addendum note Assessment: Vital Signs: Vital Signs Date Time Temp Pulse Resp B/P (MAP) Pulse Ox O2 Delivery O2 Flow Rate FiO2 03/13/18 20:16 66 146/84 03/13/18 16:00 98.3 18 97 03/12/18 16:29 Room Air I&O Intake and Output 03/13/18 07:00 Intake Total 1080 ml Balance 1080 ml Intake Oral 1080 ml # Voids 1 Current Medications: Meds: Current Medications Acetaminophen (Tylenol) 650 mg PRN Q6HRS PRN PO PAIN / TEMP; Start 02/12/18 at 11:15 Multi-Ingredient Ointment (Analgesic [place]) 1 nicole PRN QID PRN TP MUSCLE PAIN; Start 02/12/18 at 11:15 Al Hydroxide/Mg Hydroxide (Mylanta Plus Xs) 15 ml PRN AFTMEALHC PRN PO DYSPEPSIA; Start 02/12/18 at 11:15 Magnesium Hydroxide (Milk Of Magnesia) 2,400 mg PRN QHS PRN PO CONSTIPATION; Start 02/12/18 at 11:15 Acetaminophen (Tylenol) 650 mg PRN Q6HRS PRN PO PAIN; Start 02/12/18 at 12:00; Status Cancel Metoprolol Tartrate (Lopressor) 25 mg BID PO Last administered on 03/04/18at 08: 02; Start 02/12/18 at 21:00; Stop 03/04/18 at 17:14; Status DC Tamsulosin HCl (Flomax) 0.4 mg HS PO Last administered on 03/13/18at 20:14; Start 02/12/18 at 21:00 Aspirin (Children'S Aspirin) 81 mg DAILYWBKFT PO Last administered on 03/13/18at 08:04; Start 02/13/18 at 08:00 Docusate Sodium (Colace) 100 mg BID PO Last administered on 03/13/18at 20:14; Start 02/12/18 at 21:00 Flecainide Acetate (Tambocor) 50 mg BID PO Last administered on 03/13/18 20:16 ; Start 02/12/18 at 21:00 Memantine (Namenda) 10 mg BID PO Last administered on 03/13/18 20:14; Start 02/12/18 at 21:00 Ketotifen Fumarate (Zaditor) 1 drop BID OU Last administered on 02/24/18 20:26 ; Start 02/12/18 at 21:00; Stop 02/26/18 at 16:34; Status DC Potassium Chloride (Klor-Con) 20 meq DAILYWBKFT PO Last administered on 08:03; Start 02/13/18 at 08:00 Witch Dorothy/ Glycerin (A.e.r Pads) 1 each PRN BID PRN TP hemorrhoids Last administered on 02/15/18 10:00; Start 02/12/18 at 12:00 Lactulose (Lactulose) 10 gm TID PRN PO CONSTIPATION Last administered on 20:22; Start 02/12/18 at 12:00; Stop 02/25/18 at 01:57; Status DC Fluoxetine HCl (PROzac) 10 mg DAILY PO Last administered on 02/16/18 09:08; Start 02/14/18 at 09:00; Stop 02/16/18 at 13:50; Status DC Risperidone (RisperDAL) 0.25 mg HS SL Last administered on 03/13/18 20:16; Start 02/13/18 at 22:30 Vitamin D (Vitamin D3) 50,000 unit WEEKLY PO Last administered on 03/07/18 09: 19; Start 02/14/18 at 13:30 Phenylephrine/ Shark Liver Oil (Preparation H) 1 supp PRN Q8HRS PRN [place] RECTAL PAIN Last administered on 02/15/18 17:28; Start 02/15/18 at 14:45 Fluvoxamine Maleate (Luvox) 25 mg DAILY PO Last administered on 02/18/18 08:05 ; Start 02/17/18 at 09:00; Stop 02/18/18 at 16:17; Status DC Fluvoxamine Maleate (Luvox) 50 mg DAILY PO Last administered on 02/21/18 08:12 ; Start 02/19/18 at 09:00; Stop 02/21/18 at 12:00; Status DC Fluvoxamine Maleate (Luvox) 75 mg DAILY PO Last administered on 02/26/18at 08:13 ; Start 02/21/18 at 09:00; Stop 02/26/18 at 09:56; Status DC Lactulose (Lactulose) 10 gm PRN TID PRN PO CONSTIPATION Last administered on at 09:44; Start 02/25/18 at 02:00 Fluvoxamine Maleate (Luvox) 100 mg DAILY PO Last administered on 03/13/18at 08:02 ; Start 02/27/18 at 09:00 Ketotifen Fumarate (Zaditor) 1 drop PRN BID PRN OU ALLERGIES; Start 02/26/18 at 16:45 Metoprolol Tartrate (Lopressor) 12.5 mg BID PO Last administered on 03/06/18at 19:36; Start 03/04/18 at 21:00; Stop 03/07/18 at 15:42; Status DC Trazodone HCl (Desyrel) 50 mg PRN QHS PRN PO insomnia; Start 03/04/18 at 18:00 Trazodone HCl (Desyrel) 50 mg QHS PO Last administered on 03/13/18at 20:14; Start 03/04/18 at 21:00 Active Scripts Active Flecainide Acetate 100 Mg Tablet 50 Mg PO Q12HR 90 Days Reported Tucks (Witch Dorothy) 1 Each Med..pad 1 Each TP PRN BID PRN Pataday (Olopatadine Hcl) 2.5 Ml Drops 1 Drop EACHEYE BID Metoprolol Tartrate 25 Mg Tablet 25 Mg PO BID Lactulose 10 Gm/15 Ml Solution 10 Gm PO Flecainide Acetate 50 Mg Tablet 50 Mg PO BID Aspirin 81 Mg Tab.chew 81 Mg PO DAILY Risperdal (Risperidone) 0.5 Mg Tablet 0.5 Mg SL QHS Coreg (Carvedilol) 3.125 Mg Tablet 3.125 Mg PO BIDWMEALS Olanzapine 5 Mg Tablet 1.25 Mg PO PRN PRN MDD 5mg/24hrs Namenda (Memantine Hcl) 10 Mg Tablet 10 Mg PO BID Prozac (Fluoxetine Hcl) 40 Mg Capsule 40 Mg PO DAILY Flomax (Tamsulosin Hcl) 0.4 Mg Cap.er.24h 4.6 Mg PO HS Zaditor (Ketotifen Fumarate) 5 Ml Drops 1 Drop EACHEYE BID Vitamin D3 (Cholecalciferol (Vitamin D3)) 5,000 Unit Tablet 50,000 Unit PO WEEKLY FRIDAY Tylenol (Acetaminophen) 325 Mg Tablet 650 Mg PO PRN Q6HRS PRN Colace (Docusate Sodium) 100 Mg Capsule 1 Cap PO BID Potassium Chloride Oral Liquid (Potassium Chloride) 20 Meq/15 Ml Liquid 20 Meq PO DAILY LAST DOSE GIVEN: DATE: TIME: NEXT DOSE DUE: DATE: TIME: I have reviewed the current psychotropics carefully including drug interactions. Risk benefit ratio favors no change other than as noted in my dictated progress note. Diagnosis: Problems: (1) Anxiety disorder (2) Mild cognitive disorder (3) Impulse control disorder (4) Major depressive disorder, recurrent episode (5) Syncopal episodes (6) Weakness (7) PSVT (paroxysmal supraventricular tachycardia) (8) Cardiac syncope (9) Suicidal ideation CHELSEA RINCON MD Mar 13, 2018 20:45
--- NOTE | 2018-03-13 22:44 | PN ---
DATE: 03/11/2018 This late entry 03/11/2018 covers elements not covered in my initial note. SUBJECTIVE: I met with the patient in the evening. The patient slept 9-1/4 hours previous night, less obsessive regarding bathroom, but isolates in his room. REVIEW OF SYSTEMS: No CV, , pulmonary, eye system symptoms on review. MENTAL STATUS EXAM: Oriented to himself and situation. Speech moderate latency, often responses monosyllabic. Abstraction fair, computation impaired, language function intact, attention span short. Mood and affect still somewhat withdrawn. LABORATORY DATA: Reviewed. IMPRESSION: Unchanged from initial note. PLAN: No change from initial note. MAN Huan RINCON MD DR: SHAZIA/shanta JOB#: [id number] / [id number]
--- NOTE | 2018-03-13 22:46 | PN ---
DATE: 03/12/2018 This late entry 03/12/2018 covers elements not covered in my initial note. SUBJECTIVE: I met with the patient in the evening, staffed at treatment team meeting with the entire team in the morning. Overall, the patient remains somewhat withdrawn, less obsessed regarding the toilet. REVIEW OF SYSTEMS: No CV, , pulmonary, eye system symptoms on review. MENTAL STATUS EXAM: Oriented to himself and situation. Speech moderate, latency, low in rate and rhythm, low in volume. Abstraction fair, computation impaired, language function intact, attention span short. Mood and affect somewhat withdrawn, but less obsessed. LABORATORY DATA: Reviewed. IMPRESSION: Unchanged from initial note. PLAN: No change from initial note. MAN Huan RINCON MD DR: SHAZIA/shanta JOB#: [id number] / [id number]
[2018-03-14 06:04] VITALS: BP 132/81
[2018-03-14 07:15] LABS: BASO % 1 % (0-3); EOS # 0.2 x10^3/uL (0.0-0.7); EOS % 4 % (0-3); HEMATOCRIT 37.2 % (39.0-53.0); HEMOGLOBIN 12.7 g/dL (13.0-17.5); LYMPH # 1.1 x10^3/uL (1.0-4.8); LYMPH % 26 % (24-48); MEAN CORPUSCULAR HEMOGLOBIN 33 pg (25-35); MEAN CORPUSCULAR HGB CONC 34 g/dL (31-37); MEAN CORPUSCULAR VOLUME 96 fL (79-100); MONO # 0.5 x10^3/uL (0.0-1.1); MONO % 12 % (0-9); NEUT # 2.4 x10^3uL (1.8-7.7); NEUT % 58 % (31-73); PLATELET COUNT 164 x10^3/uL (140-400); RED CELL DISTRIBUTION WIDTH 15.8 % (11.5-14.5); WHITE BLOOD COUNT 4.1 x10^3/uL (4.0-11.0)
[2018-03-14] MEDS: CHOLECALCIFEROL (VITAMIN D3) 50,000 UNIT CAPSULE PO SCH (07:40)
[2018-03-14] MEDS: POTASSIUM CHLORIDE 20 MEQ TABLET.ER. PO SCH (07:40)
[2018-03-14] MEDS: MEMANTINE 10 MG TABLET. PO SCH ×2 (07:40→20:25)
[2018-03-14] MEDS: DOCUSATE SODIUM 100 MG CAPSULE PO SCH ×2 (07:40→20:25)
[2018-03-14] MEDS: ASPIRIN 81 MG TAB.CHEW PO SCH (07:40)
[2018-03-14] MEDS: FLECAINIDE 50 MG TABLET. PO SCH ×2 (07:41→20:25)
[2018-03-14 07:42] LABS: ALBUMIN 2.6 g/dL (3.4-5.0); ALBUMIN/GLOBULIN RATIO 0.9 (1.0-1.7); CALCIUM 8.7 mg/dL (8.5-10.1); CREATININE 0.9 mg/dL (0.7-1.3); GFR 79.8; TOTAL BILIRUBIN 0.2 mg/dL (0.2-1.0); TOTAL PROTEIN 5.6 g/dL (6.4-8.2)
[2018-03-14 16:17] VITALS: BP 156/95
[2018-03-14] MEDS: TAMSULOSIN 0.4 MG CAP.ER.24H. PO SCH (20:25)
[2018-03-14] MEDS: traZODone 50 MG TABLET. PO SCH (20:25)
[2018-03-14] MEDS: risperiDONE ORAL 1 MG/ML 30ml BOTTLE. SL SCH (20:26)
--- NOTE | 2018-03-14 23:20 | PDOC ---
Exam Note: Óscar Note: Please also refer to the separate dictated note~for this date of service dictated separately.~Patient seen individually. Discussed the patient with Nursing staff reviewed the chart.~Reviewed interim history and current functioning. Reviewed vital signs,~Labs/ Radiology~and current medications noted below. Continue current treatment with the changes noted in the dictated addendum note Assessment: Vital Signs: Vital Signs Date Time Temp Pulse Resp B/P (MAP) Pulse Ox O2 Delivery O2 Flow Rate FiO2 03/14/18 20:25 68 156/95 03/14/18 16:17 97.1 18 97 03/14/18 06:04 Room Air I&O Intake and Output 03/14/18 07:00 Intake Total 840 ml Balance 840 ml Intake Oral 840 ml Labs: Laboratory Tests Test 03/14/18 06:56 White Blood Count 4.1 x10^3/uL (4.0-11.0) Red Blood Count 3.90 x10^6/uL (4.30-5.70) L Hemoglobin 12.7 g/dL (13.0-17.5) L Hematocrit 37.2 % (39.0-53.0) L Mean Corpuscular Volume 96 fL (79-100) Mean Corpuscular Hemoglobin 33 pg (25-35) Mean Corpuscular Hemoglobin Concent 34 g/dL (31-37) Red Cell Distribution Width 15.8 % (11.5-14.5) H Platelet Count 164 x10^3/uL (140-400) Neutrophils (%) (Auto) 58 % (31-73) Lymphocytes (%) (Auto) 26 % (24-48) Monocytes (%) (Auto) 12 % (0-9) H Eosinophils (%) (Auto) 4 % (0-3) H Basophils (%) (Auto) 1 % (0-3) Neutrophils # (Auto) 2.4 x10^3uL (1.8-7.7) Lymphocytes # (Auto) 1.1 x10^3/uL (1.0-4.8) Monocytes # (Auto) 0.5 x10^3/uL (0.0-1.1) Eosinophils # (Auto) 0.2 x10^3/uL (0.0-0.7) Basophils # (Auto) 0.0 x10^3/uL (0.0-0.2) Sodium Level 139 mmol/L (136-145) Potassium Level 4.0 mmol/L (3.5-5.1) Chloride Level 105 mmol/L (98-107) Carbon Dioxide Level 32 mmol/L (21-32) Anion Gap 2 (6-14) L Blood Urea Nitrogen 12 mg/dL (8-26) Creatinine 0.9 mg/dL (0.7-1.3) Estimated GFR (Cockcroft-Gault) 79.8 BUN/Creatinine Ratio 13 (6-20) Glucose Level 86 mg/dL (70-99) Calcium Level 8.7 mg/dL (8.5-10.1) Total Bilirubin 0.2 mg/dL (0.2-1.0) Aspartate Amino Transferase (AST) 15 U/L (15-37) Alanine Aminotransferase (ALT) 18 U/L (16-63) Alkaline Phosphatase 77 U/L (46-116) Total Protein 5.6 g/dL (6.4-8.2) L Albumin 2.6 g/dL (3.4-5.0) L Albumin/Globulin Ratio 0.9 (1.0-1.7) L Current Medications: Meds: Current Medications Acetaminophen (Tylenol) 650 mg PRN Q6HRS PRN PO PAIN / TEMP; Start 02/12/18 at 11:15 Multi-Ingredient Ointment (Analgesic [place]) 1 nicole PRN QID PRN TP MUSCLE PAIN; Start 02/12/18 at 11:15 Al Hydroxide/Mg Hydroxide (Mylanta Plus Xs) 15 ml PRN AFTMEALHC PRN PO DYSPEPSIA; Start 02/12/18 at 11:15 Magnesium Hydroxide (Milk Of Magnesia) 2,400 mg PRN QHS PRN PO CONSTIPATION; Start 02/12/18 at 11:15 Acetaminophen (Tylenol) 650 mg PRN Q6HRS PRN PO PAIN; Start 02/12/18 at 12:00; Status Cancel Metoprolol Tartrate (Lopressor) 25 mg BID PO Last administered on 03/04/18at 08: 02; Start 02/12/18 at 21:00; Stop 03/04/18 at 17:14; Status DC Tamsulosin HCl (Flomax) 0.4 mg HS PO Last administered on 03/14/18 20:25; Start 02/12/18 at 21:00 Aspirin (Children'S Aspirin) 81 mg DAILYWBKFT PO Last administered on 03/14/18 07:40; Start 02/13/18 at 08:00 Docusate Sodium (Colace) 100 mg BID PO Last administered on 03/14/18 20:25; Start 02/12/18 at 21:00 Flecainide Acetate (Tambocor) 50 mg BID PO Last administered on 03/14/18 20:25 ; Start 02/12/18 at 21:00 Memantine (Namenda) 10 mg BID PO Last administered on 03/14/18 20:25; Start 02/12/18 at 21:00 Ketotifen Fumarate (Zaditor) 1 drop BID OU Last administered on 02/24/18 20:26 ; Start 02/12/18 at 21:00; Stop 02/26/18 at 16:34; Status DC Potassium Chloride (Klor-Con) 20 meq DAILYWBKFT PO Last administered on 07:40; Start 02/13/18 at 08:00 Witch Dorothy/ Glycerin (A.e.r Pads) 1 each PRN BID PRN TP hemorrhoids Last administered on 02/15/18 10:00; Start 02/12/18 at 12:00 Lactulose (Lactulose) 10 gm TID PRN PO CONSTIPATION Last administered on 20:22; Start 02/12/18 at 12:00; Stop 02/25/18 at 01:57; Status DC Fluoxetine HCl (PROzac) 10 mg DAILY PO Last administered on 02/16/18 09:08; Start 02/14/18 at 09:00; Stop 02/16/18 at 13:50; Status DC Risperidone (RisperDAL) 0.25 mg HS SL Last administered on 03/14/18 20:26; Start 02/13/18 at 22:30 Vitamin D (Vitamin D3) 50,000 unit WEEKLY PO Last administered on 03/14/18 07: 40; Start 02/14/18 at 13:30 Phenylephrine/ Shark Liver Oil (Preparation H) 1 supp PRN Q8HRS PRN [place] RECTAL PAIN Last administered on 8/12/18at 17:28; Start 02/15/18 at 14:45 Fluvoxamine Maleate (Luvox) 25 mg DAILY PO Last administered on 02/18/18at 08:05 ; Start 02/17/18 at 09:00; Stop 02/18/18 at 16:17; Status DC Fluvoxamine Maleate (Luvox) 50 mg DAILY PO Last administered on 02/21/18at 08:12 ; Start 02/19/18 at 09:00; Stop 02/21/18 at 12:00; Status DC Fluvoxamine Maleate (Luvox) 75 mg DAILY PO Last administered on 02/26/18at 08:13 ; Start 02/21/18 at 09:00; Stop 02/26/18 at 09:56; Status DC Lactulose (Lactulose) 10 gm PRN TID PRN PO CONSTIPATION Last administered on at 09:44; Start 02/25/18 at 02:00 Fluvoxamine Maleate (Luvox) 100 mg DAILY PO Last administered on 03/14/18at 07:40 ; Start 02/27/18 at 09:00 Ketotifen Fumarate (Zaditor) 1 drop PRN BID PRN OU ALLERGIES; Start 02/26/18 at 16:45 Metoprolol Tartrate (Lopressor) 12.5 mg BID PO Last administered on 03/06/18at 19:36; Start 03/04/18 at 21:00; Stop 03/07/18 at 15:42; Status DC Trazodone HCl (Desyrel) 50 mg PRN QHS PRN PO insomnia; Start 03/04/18 at 18:00 Trazodone HCl (Desyrel) 50 mg QHS PO Last administered on 03/14/18at 20:25; Start 03/04/18 at 21:00 Active Scripts Active Flecainide Acetate 100 Mg Tablet 50 Mg PO Q12HR 90 Days Reported [place] (Jose L De La Cruz) 1 Each Med..pad 1 Each TP PRN BID PRN Pataday (Olopatadine Hcl) 2.5 Ml Drops 1 Drop EACHEYE BID Metoprolol Tartrate 25 Mg Tablet 25 Mg PO BID Lactulose 10 Gm/15 Ml Solution 10 Gm PO Flecainide Acetate 50 Mg Tablet 50 Mg PO BID Aspirin 81 Mg Tab.chew 81 Mg PO DAILY Risperdal (Risperidone) 0.5 Mg Tablet 0.5 Mg SL QHS Coreg (Carvedilol) 3.125 Mg Tablet 3.125 Mg PO BIDWMEALS Olanzapine 5 Mg Tablet 1.25 Mg PO PRN PRN MDD 5mg/24hrs Namenda (Memantine Hcl) 10 Mg Tablet 10 Mg PO BID Prozac (Fluoxetine Hcl) 40 Mg Capsule 40 Mg PO DAILY Flomax (Tamsulosin Hcl) 0.4 Mg Cap.er.24h 4.6 Mg PO HS Zaditor (Ketotifen Fumarate) 5 Ml Drops 1 Drop EACHEYE BID Vitamin D3 (Cholecalciferol (Vitamin D3)) 5,000 Unit Tablet 50,000 Unit PO WEEKLY FRIDAY Tylenol (Acetaminophen) 325 Mg Tablet 650 Mg PO PRN Q6HRS PRN Colace (Docusate Sodium) 100 Mg Capsule 1 Cap PO BID Potassium Chloride Oral Liquid (Potassium Chloride) 20 Meq/15 Ml Liquid 20 Meq PO DAILY LAST DOSE GIVEN: DATE: TIME: NEXT DOSE DUE: DATE: TIME: I have reviewed the current psychotropics carefully including drug interactions. Risk benefit ratio favors no change other than as noted in my dictated progress note. Diagnosis: Problems: (1) Anxiety disorder (2) Mild cognitive disorder (3) Impulse control disorder (4) Major depressive disorder, recurrent episode (5) Syncopal episodes (6) Weakness (7) PSVT (paroxysmal supraventricular tachycardia) (8) Cardiac syncope (9) Suicidal ideation CHELSEA RINCON MD Mar 14, 2018 23:20
[2018-03-15 06:11] VITALS: BP 122/74
[2018-03-15] MEDS: POTASSIUM CHLORIDE 20 MEQ TABLET.ER. PO SCH (08:00)
[2018-03-15] MEDS: ASPIRIN 81 MG TAB.CHEW PO SCH (08:00)
[2018-03-15] MEDS: MEMANTINE 10 MG TABLET. PO SCH ×2 (08:00→20:27)
[2018-03-15] MEDS: DOCUSATE SODIUM 100 MG CAPSULE PO SCH ×2 (08:01→20:27)
[2018-03-15] MEDS: FLECAINIDE 50 MG TABLET. PO SCH ×2 (08:01→20:28)
[2018-03-15 16:00] VITALS: BP 148/86
--- NOTE | 2018-03-15 18:02 | PN ---
DATE: 03/13/2018 PSYCHIATRIC PROGRESS NOTE This is a late entry 03/13/2018, covers elements not covered in my initial note. SUBJECTIVE: I met with the patient in the evening. Overall, the patient remains withdrawn, spends much time in his room, but less obsessed about power. I met with him in his room at length. REVIEW OF SYSTEMS: No CV, , pulmonary, eye, ENT system symptoms on review. MENTAL STATUS EXAM: Oriented to himself, situation. Speech moderate latency, low in rate and rhythm, low in volume. Abstraction fair, computation impaired, language function intact, attention span fair. Mood and affect still withdrawn, but improved. LABORATORY DATA: Reviewed. IMPRESSION: Unchanged from initial note. PLAN: No change from initial note. MAN Huan RINCON MD DR: SHAZIA/shanta JOB#: [id number] / [id number]
[2018-03-15] MEDS: TAMSULOSIN 0.4 MG CAP.ER.24H. PO SCH (20:27)
[2018-03-15] MEDS: traZODone 50 MG TABLET. PO SCH (20:27)
[2018-03-15] MEDS: risperiDONE ORAL 1 MG/ML 30ml BOTTLE. SL SCH (20:29)
--- NOTE | 2018-03-15 20:55 | PDOC ---
Exam Note: Óscar Note: Please also refer to the separate dictated note~for this date of service dictated separately.~Patient seen individually. Discussed the patient with Nursing staff reviewed the chart.~Reviewed interim history and current functioning. Reviewed vital signs,~Labs/ Radiology~and current medications noted below. Continue current treatment with the changes noted in the dictated addendum note Assessment: Vital Signs: Vital Signs Date Time Temp Pulse Resp B/P (MAP) Pulse Ox O2 Delivery O2 Flow Rate FiO2 03/15/18 20:28 73 148/86 03/15/18 16:00 97.7 16 96 03/15/18 06:11 Room Air I&O Intake and Output 03/15/18 07:00 Intake Total 720 ml Balance 720 ml Intake Oral 720 ml Current Medications: Meds: Current Medications Acetaminophen (Tylenol) 650 mg PRN Q6HRS PRN PO PAIN / TEMP; Start 02/12/18 at 11:15 Multi-Ingredient Ointment (Analgesic [place]) 1 nicole PRN QID PRN TP MUSCLE PAIN; Start 02/12/18 at 11:15 Al Hydroxide/Mg Hydroxide (Mylanta Plus Xs) 15 ml PRN AFTMEALHC PRN PO DYSPEPSIA; Start 02/12/18 at 11:15 Magnesium Hydroxide (Milk Of Magnesia) 2,400 mg PRN QHS PRN PO CONSTIPATION; Start 02/12/18 at 11:15 Acetaminophen (Tylenol) 650 mg PRN Q6HRS PRN PO PAIN; Start 02/12/18 at 12:00; Status Cancel Metoprolol Tartrate (Lopressor) 25 mg BID PO Last administered on 03/04/18at 08: 02; Start 02/12/18 at 21:00; Stop 03/04/18 at 17:14; Status DC Tamsulosin HCl (Flomax) 0.4 mg HS PO Last administered on 03/15/18at 20:27; Start 02/12/18 at 21:00 Aspirin (Children'S Aspirin) 81 mg DAILYWBKFT PO Last administered on 03/15/18at 08:00; Start 02/13/18 at 08:00 Docusate Sodium (Colace) 100 mg BID PO Last administered on 03/15/18at 20:27; Start 02/12/18 at 21:00 Flecainide Acetate (Tambocor) 50 mg BID PO Last administered on 03/15/18 20:28 ; Start 02/12/18 at 21:00 Memantine (Namenda) 10 mg BID PO Last administered on 03/15/18 20:27; Start 02/12/18 at 21:00 Ketotifen Fumarate (Zaditor) 1 drop BID OU Last administered on 02/24/18 20:26 ; Start 02/12/18 at 21:00; Stop 02/26/18 at 16:34; Status DC Potassium Chloride (Klor-Con) 20 meq DAILYWBKFT PO Last administered on 08:00; Start 02/13/18 at 08:00 Witch Dorothy/ Glycerin (A.e.r Pads) 1 each PRN BID PRN TP hemorrhoids Last administered on 02/15/18 10:00; Start 02/12/18 at 12:00 Lactulose (Lactulose) 10 gm TID PRN PO CONSTIPATION Last administered on 20:22; Start 02/12/18 at 12:00; Stop 02/25/18 at 01:57; Status DC Fluoxetine HCl (PROzac) 10 mg DAILY PO Last administered on 02/16/18 09:08; Start 02/14/18 at 09:00; Stop 02/16/18 at 13:50; Status DC Risperidone (RisperDAL) 0.25 mg HS SL Last administered on 03/15/18 20:29; Start 02/13/18 at 22:30 Vitamin D (Vitamin D3) 50,000 unit WEEKLY PO Last administered on 03/14/18at 07: 40; Start 02/14/18 at 13:30 Phenylephrine/ Shark Liver Oil (Preparation H) 1 supp PRN Q8HRS PRN ND RECTAL PAIN Last administered on 02/15/18 17:28; Start 02/15/18 at 14:45 Fluvoxamine Maleate (Luvox) 25 mg DAILY PO Last administered on 02/18/18 08:05 ; Start 02/17/18 at 09:00; Stop 02/18/18 at 16:17; Status DC Fluvoxamine Maleate (Luvox) 50 mg DAILY PO Last administered on 02/21/18at 08:12 ; Start 02/19/18 at 09:00; Stop 02/21/18 at 12:00; Status DC Fluvoxamine Maleate (Luvox) 75 mg DAILY PO Last administered on 02/26/18at 08:13 ; Start 02/21/18 at 09:00; Stop 02/26/18 at 09:56; Status DC Lactulose (Lactulose) 10 gm PRN TID PRN PO CONSTIPATION Last administered on at 09:44; Start 02/25/18 at 02:00 Fluvoxamine Maleate (Luvox) 100 mg DAILY PO Last administered on 03/15/18at 08:00 ; Start 02/27/18 at 09:00 Ketotifen Fumarate (Zaditor) 1 drop PRN BID PRN OU ALLERGIES; Start 02/26/18 at 16:45 Metoprolol Tartrate (Lopressor) 12.5 mg BID PO Last administered on 03/06/18at 19:36; Start 03/04/18 at 21:00; Stop 03/07/18 at 15:42; Status DC Trazodone HCl (Desyrel) 50 mg PRN QHS PRN PO insomnia; Start 03/04/18 at 18:00 Trazodone HCl (Desyrel) 50 mg QHS PO Last administered on 03/15/18at 20:27; Start 03/04/18 at 21:00 Active Scripts Active Flecainide Acetate 100 Mg Tablet 50 Mg PO Q12HR 90 Days Reported Tucks (Jose L De La Cruz) 1 Each Med..pad 1 Each TP PRN BID PRN Pataday (Olopatadine Hcl) 2.5 Ml Drops 1 Drop EACHEYE BID Metoprolol Tartrate 25 Mg Tablet 25 Mg PO BID Lactulose 10 Gm/15 Ml Solution 10 Gm PO Flecainide Acetate 50 Mg Tablet 50 Mg PO BID Aspirin 81 Mg Tab.chew 81 Mg PO DAILY Risperdal (Risperidone) 0.5 Mg Tablet 0.5 Mg SL QHS Coreg (Carvedilol) 3.125 Mg Tablet 3.125 Mg PO BIDWMEALS Olanzapine 5 Mg Tablet 1.25 Mg PO PRN PRN MDD 5mg/24hrs Namenda (Memantine Hcl) 10 Mg Tablet 10 Mg PO BID Prozac (Fluoxetine Hcl) 40 Mg Capsule 40 Mg PO DAILY Flomax (Tamsulosin Hcl) 0.4 Mg Cap.er.24h 4.6 Mg PO HS Zaditor (Ketotifen Fumarate) 5 Ml Drops 1 Drop EACHEYE BID Vitamin D3 (Cholecalciferol (Vitamin D3)) 5,000 Unit Tablet 50,000 Unit PO WEEKLY FRIDAY Tylenol (Acetaminophen) 325 Mg Tablet 650 Mg PO PRN Q6HRS PRN Colace (Docusate Sodium) 100 Mg Capsule 1 Cap PO BID Potassium Chloride Oral Liquid (Potassium Chloride) 20 Meq/15 Ml Liquid 20 Meq PO DAILY LAST DOSE GIVEN: DATE: TIME: NEXT DOSE DUE: DATE: TIME: I have reviewed the current psychotropics carefully including drug interactions. Risk benefit ratio favors no change other than as noted in my dictated progress note. Diagnosis: Problems: (1) Anxiety disorder (2) Mild cognitive disorder (3) Impulse control disorder (4) Major depressive disorder, recurrent episode (5) Syncopal episodes (6) Weakness (7) PSVT (paroxysmal supraventricular tachycardia) (8) Cardiac syncope (9) Suicidal ideation CHELSEA RINCON MD Mar 15, 2018 20:55
[2018-03-16 06:27] VITALS: BP 149/91
[2018-03-16] MEDS: DOCUSATE SODIUM 100 MG CAPSULE PO SCH ×2 (07:43→19:50)
[2018-03-16] MEDS: POTASSIUM CHLORIDE 20 MEQ TABLET.ER. PO SCH (07:43)
[2018-03-16] MEDS: MEMANTINE 10 MG TABLET. PO SCH ×2 (07:43→19:50)
[2018-03-16] MEDS: ASPIRIN 81 MG TAB.CHEW PO SCH (07:43)
[2018-03-16] MEDS: FLECAINIDE 50 MG TABLET. PO SCH ×2 (07:44→19:51)
[2018-03-16 09:28] LABS: BASO % 0 % (0-3); EOS # 0.2 x10^3/uL (0.0-0.7); EOS % 4 % (0-3); HEMATOCRIT 42.1 % (39.0-53.0); LYMPH % 21 % (24-48); MEAN CORPUSCULAR HEMOGLOBIN 32 pg (25-35); MEAN CORPUSCULAR HGB CONC 33 g/dL (31-37); MEAN CORPUSCULAR VOLUME 97 fL (79-100); MONO # 0.4 x10^3/uL (0.0-1.1); MONO % 9 % (0-9); NEUT # 3.1 x10^3uL (1.8-7.7); NEUT % 65 % (31-73); PLATELET COUNT 184 x10^3/uL (140-400); RED BLOOD COUNT 4.35 x10^6/uL (4.30-5.70); RED CELL DISTRIBUTION WIDTH 15.7 % (11.5-14.5); WHITE BLOOD COUNT 4.7 x10^3/uL (4.0-11.0)
[2018-03-16 09:54] LABS: ALBUMIN 3.3 g/dL (3.4-5.0); ALBUMIN/GLOBULIN RATIO 0.9 (1.0-1.7); CALCIUM 9.6 mg/dL (8.5-10.1); GFR 70.7; POTASSIUM 4.1 mmol/L (3.5-5.1); TOTAL BILIRUBIN 0.3 mg/dL (0.2-1.0); TOTAL PROTEIN 6.8 g/dL (6.4-8.2)
[2018-03-16 15:53] VITALS: BP 137/84
[2018-03-16] MEDS: traZODone 50 MG TABLET. PO SCH (19:50)
[2018-03-16] MEDS: TAMSULOSIN 0.4 MG CAP.ER.24H. PO SCH (19:50)
[2018-03-16] MEDS: risperiDONE ORAL 1 MG/ML 30ml BOTTLE. SL SCH (19:51)
--- NOTE | 2018-03-16 20:54 | PDOC ---
Exam Note: Óscar Note: Please also refer to the separate dictated note~for this date of service dictated separately.~Patient seen individually. Discussed the patient with Nursing staff reviewed the chart.~Reviewed interim history and current functioning. Reviewed vital signs,~Labs/ Radiology~and current medications noted below. Continue current treatment with the changes noted in the dictated addendum note Assessment: Vital Signs: Vital Signs Date Time Temp Pulse Resp B/P (MAP) Pulse Ox O2 Delivery O2 Flow Rate FiO2 03/16/18 19:51 61 137/84 03/16/18 15:53 97.7 20 98 Room Air I&O Intake and Output 03/16/18 07:00 Intake Total 600 ml Balance 600 ml Intake Oral 600 ml Labs: Laboratory Tests Test 03/16/18 09:20 White Blood Count 4.7 x10^3/uL (4.0-11.0) Red Blood Count 4.35 x10^6/uL (4.30-5.70) Hemoglobin 14.0 g/dL (13.0-17.5) Hematocrit 42.1 % (39.0-53.0) Mean Corpuscular Volume 97 fL (79-100) Mean Corpuscular Hemoglobin 32 pg (25-35) Mean Corpuscular Hemoglobin Concent 33 g/dL (31-37) Red Cell Distribution Width 15.7 % (11.5-14.5) H Platelet Count 184 x10^3/uL (140-400) Neutrophils (%) (Auto) 65 % (31-73) Lymphocytes (%) (Auto) 21 % (24-48) L Monocytes (%) (Auto) 9 % (0-9) Eosinophils (%) (Auto) 4 % (0-3) H Basophils (%) (Auto) 0 % (0-3) Neutrophils # (Auto) 3.1 x10^3uL (1.8-7.7) Lymphocytes # (Auto) 1.0 x10^3/uL (1.0-4.8) Monocytes # (Auto) 0.4 x10^3/uL (0.0-1.1) Eosinophils # (Auto) 0.2 x10^3/uL (0.0-0.7) Basophils # (Auto) 0.0 x10^3/uL (0.0-0.2) Sodium Level 141 mmol/L (136-145) Potassium Level 4.1 mmol/L (3.5-5.1) Chloride Level 102 mmol/L (98-107) Carbon Dioxide Level 31 mmol/L (21-32) Anion Gap 8 (6-14) Blood Urea Nitrogen 14 mg/dL (8-26) Creatinine 1.0 mg/dL (0.7-1.3) Estimated GFR (Cockcroft-Gault) 70.7 BUN/Creatinine Ratio 14 (6-20) Glucose Level 109 mg/dL (70-99) H Calcium Level 9.6 mg/dL (8.5-10.1) Total Bilirubin 0.3 mg/dL (0.2-1.0) Aspartate Amino Transferase (AST) 18 U/L (15-37) Alanine Aminotransferase (ALT) 23 U/L (16-63) Alkaline Phosphatase 94 U/L (46-116) Total Protein 6.8 g/dL (6.4-8.2) Albumin 3.3 g/dL (3.4-5.0) L Albumin/Globulin Ratio 0.9 (1.0-1.7) L Current Medications: Meds: Current Medications Acetaminophen (Tylenol) 650 mg PRN Q6HRS PRN PO PAIN / TEMP Last administered on 03/16/18at 16:23; Start 02/12/18 at 11:15 Multi-Ingredient Ointment (Analgesic [place]) 1 nicole PRN QID PRN TP MUSCLE PAIN; Start 02/12/18 at 11:15 Al Hydroxide/Mg Hydroxide (Mylanta Plus Xs) 15 ml PRN AFTMEALHC PRN PO DYSPEPSIA; Start 02/12/18 at 11:15 Magnesium Hydroxide (Milk Of Magnesia) 2,400 mg PRN QHS PRN PO CONSTIPATION; Start 02/12/18 at 11:15 Acetaminophen (Tylenol) 650 mg PRN Q6HRS PRN PO PAIN; Start 02/12/18 at 12:00; Status Cancel Metoprolol Tartrate (Lopressor) 25 mg BID PO Last administered on 03/04/18at 08: 02; Start 02/12/18 at 21:00; Stop 03/04/18 at 17:14; Status DC Tamsulosin HCl (Flomax) 0.4 mg HS PO Last administered on 03/16/18 19:50; Start 02/12/18 at 21:00 Aspirin (Children'S Aspirin) 81 mg DAILYWBKFT PO Last administered on 07:43; Start 02/13/18 at 08:00 Docusate Sodium (Colace) 100 mg BID PO Last administered on 03/16/18 19:50; Start 02/12/18 at 21:00 Flecainide Acetate (Tambocor) 50 mg BID PO Last administered on 03/16/18 19:51 ; Start 02/12/18 at 21:00 Memantine (Namenda) 10 mg BID PO Last administered on 03/16/18 19:50; Start at 21:00 Ketotifen Fumarate (Zaditor) 1 drop BID OU Last administered on 02/24/18 20:26 ; Start 02/12/18 at 21:00; Stop 02/26/18 at 16:34; Status DC Potassium Chloride (Klor-Con) 20 meq DAILYWBKFT PO Last administered on 07:43; Start 02/13/18 at 08:00 Witch Dorothy/ Glycerin (A.e.r Pads) 1 each PRN BID PRN TP hemorrhoids Last administered on 02/15/18 10:00; Start 02/12/18 at 12:00 Lactulose (Lactulose) 10 gm TID PRN PO CONSTIPATION Last administered on 20:22; Start 02/12/18 at 12:00; Stop 02/25/18 at 01:57; Status DC Fluoxetine HCl (PROzac) 10 mg DAILY PO Last administered on 02/16/18 09:08; Start 02/14/18 at 09:00; Stop 02/16/18 at 13:50; Status DC Risperidone (RisperDAL) 0.25 mg HS SL Last administered on 03/16/18 19:51; Start 02/13/18 at 22:30 Vitamin D (Vitamin D3) 50,000 unit WEEKLY PO Last administered on 03/14/18 07: 40; Start 02/14/18 at 13:30 Phenylephrine/ Shark Liver Oil (Preparation H) 1 supp PRN Q8HRS PRN NE RECTAL PAIN Last administered on 8/12/18at 17:28; Start 02/15/18 at 14:45 Fluvoxamine Maleate (Luvox) 25 mg DAILY PO Last administered on 02/18/18at 08:05 ; Start 02/17/18 at 09:00; Stop 02/18/18 at 16:17; Status DC Fluvoxamine Maleate (Luvox) 50 mg DAILY PO Last administered on 02/21/18at 08:12 ; Start 02/19/18 at 09:00; Stop 02/21/18 at 12:00; Status DC Fluvoxamine Maleate (Luvox) 75 mg DAILY PO Last administered on 02/26/18at 08:13 ; Start 02/21/18 at 09:00; Stop 02/26/18 at 09:56; Status DC Lactulose (Lactulose) 10 gm PRN TID PRN PO CONSTIPATION Last administered on at 09:44; Start 02/25/18 at 02:00 Fluvoxamine Maleate (Luvox) 100 mg DAILY PO Last administered on 03/16/18at 07: 43; Start 02/27/18 at 09:00 Ketotifen Fumarate (Zaditor) 1 drop PRN BID PRN OU ALLERGIES; Start 02/26/18 at 16:45 Metoprolol Tartrate (Lopressor) 12.5 mg BID PO Last administered on 03/06/18at 19:36; Start 03/04/18 at 21:00; Stop 03/07/18 at 15:42; Status DC Trazodone HCl (Desyrel) 50 mg PRN QHS PRN PO insomnia; Start 03/04/18 at 18:00 Trazodone HCl (Desyrel) 50 mg QHS PO Last administered on 03/16/18at 19:50; Start 03/04/18 at 21:00 Active Scripts Active Flecainide Acetate 100 Mg Tablet 50 Mg PO Q12HR 90 Days Reported Tucks (Jose L eD La Cruz) 1 Each Med..pad 1 Each TP PRN BID PRN Pataday (Olopatadine Hcl) 2.5 Ml Drops 1 Drop EACHEYE BID Metoprolol Tartrate 25 Mg Tablet 25 Mg PO BID Lactulose 10 Gm/15 Ml Solution 10 Gm PO Flecainide Acetate 50 Mg Tablet 50 Mg PO BID Aspirin 81 Mg Tab.chew 81 Mg PO DAILY Risperdal (Risperidone) 0.5 Mg Tablet 0.5 Mg SL QHS Coreg (Carvedilol) 3.125 Mg Tablet 3.125 Mg PO BIDWMEALS Olanzapine 5 Mg Tablet 1.25 Mg PO PRN PRN MDD 5mg/24hrs Namenda (Memantine Hcl) 10 Mg Tablet 10 Mg PO BID Prozac (Fluoxetine Hcl) 40 Mg Capsule 40 Mg PO DAILY Flomax (Tamsulosin Hcl) 0.4 Mg Cap.er.24h 4.6 Mg PO HS Zaditor (Ketotifen Fumarate) 5 Ml Drops 1 Drop EACHEYE BID Vitamin D3 (Cholecalciferol (Vitamin D3)) 5,000 Unit Tablet 50,000 Unit PO WEEKLY FRIDAY Tylenol (Acetaminophen) 325 Mg Tablet 650 Mg PO PRN Q6HRS PRN Colace (Docusate Sodium) 100 Mg Capsule 1 Cap PO BID Potassium Chloride Oral Liquid (Potassium Chloride) 20 Meq/15 Ml Liquid 20 Meq PO DAILY LAST DOSE GIVEN: DATE: TIME: NEXT DOSE DUE: DATE: TIME: I have reviewed the current psychotropics carefully including drug interactions. Risk benefit ratio favors no change other than as noted in my dictated progress note. Diagnosis: Problems: (1) Anxiety disorder (2) Mild cognitive disorder (3) Impulse control disorder (4) Major depressive disorder, recurrent episode (5) Syncopal episodes (6) Weakness (7) PSVT (paroxysmal supraventricular tachycardia) (8) Cardiac syncope (9) Suicidal ideation CHELSEA RINCON MD Mar 16, 2018 20:54
--- NOTE | 2018-03-16 21:03 | PN ---
DATE: 03/14/2018 PSYCHIATRIC PROGRESS NOTE This is a late entry of 03/14/2018, covers elements not covered in my initial note. SUBJECTIVE: I met with the patient at some length in his room in the evening. He has been irritable at times, somewhat withdrawn, but otherwise cooperative. He spends much time in bed, but does come out for meals to the dining room. REVIEW OF SYSTEMS: No CV, , pulmonary, eye, ENT system symptoms on review. Obsession with bowel is better. MENTAL STATUS EXAM: Oriented to himself and situation. Speech moderate latency, often responses monosyllabic. Abstraction fair, computation impaired, language function intact. Mood and affect remain somewhat dysphoric. No active suicidal or homicidal ideation. LABORATORY DATA: Reviewed. IMPRESSION: Unchanged from initial note. PLAN: No change from initial note. MAN Huan RINOCN MD DR: SHAZIA/shanta JOB#: [id number] / [id number]
--- NOTE | 2018-03-16 22:46 | PN ---
DATE: 03/15/2018 PSYCHIATRIC PROGRESS NOTE This late entry 03/15/2018 covers elements not covered in my initial note. SUBJECTIVE: I met with the patient in the evening. The patient remains withdrawn, slept 7-3/4 hours previous evening. Refused supper, unsteady on his gait. PT, OT to evaluate the patient. REVIEW OF SYSTEMS: No CV, , pulmonary, eye system symptoms on review, met with him in his room. MENTAL STATUS EXAM: Oriented to himself and situation. Speech moderate latency, often responses monosyllabic. Abstraction fair, computation impaired, language function intact. Mood and affect still withdrawn, but improved. No suicidal or aggressive behaviors. LABORATORY DATA: Reviewed. IMPRESSION: Unchanged from initial note. PLAN: No change from initial note. MAN Huan RINCON MD DR: SHAZIA/shanta JOB#: [id number] / [id number]
[2018-03-17 06:32] VITALS: BP 108/63
[2018-03-17] MEDS: MEMANTINE 10 MG TABLET. PO SCH ×2 (08:05→20:29)
[2018-03-17] MEDS: ASPIRIN 81 MG TAB.CHEW PO SCH (08:05)
[2018-03-17] MEDS: DOCUSATE SODIUM 100 MG CAPSULE PO SCH ×2 (08:05→20:29)
[2018-03-17] MEDS: POTASSIUM CHLORIDE 20 MEQ TABLET.ER. PO SCH (08:05)
[2018-03-17] MEDS: FLECAINIDE 50 MG TABLET. PO SCH ×2 (08:06→20:30)
[2018-03-17 16:18] VITALS: BP 135/85
[2018-03-17] MEDS: traZODone 50 MG TABLET. PO SCH (20:29)
[2018-03-17] MEDS: TAMSULOSIN 0.4 MG CAP.ER.24H. PO SCH (20:29)
[2018-03-17] MEDS: risperiDONE ORAL 1 MG/ML 30ml BOTTLE. SL SCH (20:30)
--- NOTE | 2018-03-17 20:52 | PDOC ---
Exam Note: Óscar Note: Please also refer to the separate dictated note~for this date of service dictated separately.~Patient seen individually. Discussed the patient with Nursing staff reviewed the chart.~Reviewed interim history and current functioning. Reviewed vital signs,~Labs/ Radiology~and current medications noted below. Continue current treatment with the changes noted in the dictated addendum note Assessment: Vital Signs: Vital Signs Date Time Temp Pulse Resp B/P (MAP) Pulse Ox O2 Delivery O2 Flow Rate FiO2 03/17/18 20:30 69 135/85 03/17/18 16:18 97.2 18 96 03/16/18 15:53 Room Air I&O Intake and Output 03/17/18 07:00 Intake Total 530 ml Balance 530 ml Intake Oral 530 ml Current Medications: Meds: Current Medications Acetaminophen (Tylenol) 650 mg PRN Q6HRS PRN PO PAIN / TEMP Last administered on 03/16/18at 16:23; Start 02/12/18 at 11:15 Multi-Ingredient Ointment (Analgesic [place]) 1 nicole PRN QID PRN TP MUSCLE PAIN; Start 02/12/18 at 11:15 Al Hydroxide/Mg Hydroxide (Mylanta Plus Xs) 15 ml PRN AFTMEALHC PRN PO DYSPEPSIA; Start 02/12/18 at 11:15 Magnesium Hydroxide (Milk Of Magnesia) 2,400 mg PRN QHS PRN PO CONSTIPATION; Start 02/12/18 at 11:15 Acetaminophen (Tylenol) 650 mg PRN Q6HRS PRN PO PAIN; Start 02/12/18 at 12:00; Status Cancel Metoprolol Tartrate (Lopressor) 25 mg BID PO Last administered on 03/04/18at 08: 02; Start 02/12/18 at 21:00; Stop 03/04/18 at 17:14; Status DC Tamsulosin HCl (Flomax) 0.4 mg HS PO Last administered on 03/17/18at 20:29; Start 02/12/18 at 21:00 Aspirin (Children'S Aspirin) 81 mg DAILYWBKFT PO Last administered on at 08:05; Start 02/13/18 at 08:00 Docusate Sodium (Colace) 100 mg BID PO Last administered on 03/17/18at 20:29; Start 02/12/18 at 21:00 Flecainide Acetate (Tambocor) 50 mg BID PO Last administered on 03/17/18 20:30 ; Start 02/12/18 at 21:00 Memantine (Namenda) 10 mg BID PO Last administered on 03/17/18 20:29; Start at 21:00 Ketotifen Fumarate (Zaditor) 1 drop BID OU Last administered on 02/24/18 20:26 ; Start 02/12/18 at 21:00; Stop 02/26/18 at 16:34; Status DC Potassium Chloride (Klor-Con) 20 meq DAILYWBKFT PO Last administered on 08:05; Start 02/13/18 at 08:00 [place]/ Glycerin (A.e.r Pads) 1 each PRN BID PRN TP hemorrhoids Last administered on 02/15/18 10:00; Start 02/12/18 at 12:00 Lactulose (Lactulose) 10 gm TID PRN PO CONSTIPATION Last administered on 20:22; Start 02/12/18 at 12:00; Stop 02/25/18 at 01:57; Status DC Fluoxetine HCl (PROzac) 10 mg DAILY PO Last administered on 02/16/18 09:08; Start 02/14/18 at 09:00; Stop 02/16/18 at 13:50; Status DC Risperidone (RisperDAL) 0.25 mg HS SL Last administered on 03/17/18 20:30; Start 02/13/18 at 22:30 Vitamin D (Vitamin D3) 50,000 unit WEEKLY PO Last administered on 03/14/18 07: 40; Start 02/14/18 at 13:30 Phenylephrine/ Shark Liver Oil (Preparation H) 1 supp PRN Q8HRS PRN SD RECTAL PAIN Last administered on 02/15/18 17:28; Start 02/15/18 at 14:45 Fluvoxamine Maleate (Luvox) 25 mg DAILY PO Last administered on 02/18/18 08:05 ; Start 02/17/18 at 09:00; Stop 02/18/18 at 16:17; Status DC Fluvoxamine Maleate (Luvox) 50 mg DAILY PO Last administered on 8/18/18at 08:12 ; Start 02/19/18 at 09:00; Stop 02/21/18 at 12:00; Status DC Fluvoxamine Maleate (Luvox) 75 mg DAILY PO Last administered on 02/26/18at 08:13 ; Start 02/21/18 at 09:00; Stop 02/26/18 at 09:56; Status DC Lactulose (Lactulose) 10 gm PRN TID PRN PO CONSTIPATION Last administered on at 09:44; Start 02/25/18 at 02:00 Fluvoxamine Maleate (Luvox) 100 mg DAILY PO Last administered on 03/17/18at 08: 05; Start 02/27/18 at 09:00 Ketotifen Fumarate (Zaditor) 1 drop PRN BID PRN OU ALLERGIES; Start 02/26/18 at 16:45 Metoprolol Tartrate (Lopressor) 12.5 mg BID PO Last administered on 03/06/18at 19:36; Start 03/04/18 at 21:00; Stop 03/07/18 at 15:42; Status DC Trazodone HCl (Desyrel) 50 mg PRN QHS PRN PO insomnia; Start 03/04/18 at 18:00 Trazodone HCl (Desyrel) 50 mg QHS PO Last administered on 03/17/18at 20:29; Start 03/04/18 at 21:00 Active Scripts Active Flecainide Acetate 100 Mg Tablet 50 Mg PO Q12HR 90 Days Reported Tucks (Jose L De La Cruz) 1 Each Med..pad 1 Each TP PRN BID PRN Pataday (Olopatadine Hcl) 2.5 Ml Drops 1 Drop EACHEYE BID Metoprolol Tartrate 25 Mg Tablet 25 Mg PO BID Lactulose 10 Gm/15 Ml Solution 10 Gm PO Flecainide Acetate 50 Mg Tablet 50 Mg PO BID Aspirin 81 Mg Tab.chew 81 Mg PO DAILY Risperdal (Risperidone) 0.5 Mg Tablet 0.5 Mg SL QHS Coreg (Carvedilol) 3.125 Mg Tablet 3.125 Mg PO BIDWMEALS Olanzapine 5 Mg Tablet 1.25 Mg PO PRN PRN MDD 5mg/24hrs Namenda (Memantine Hcl) 10 Mg Tablet 10 Mg PO BID Prozac (Fluoxetine Hcl) 40 Mg Capsule 40 Mg PO DAILY Flomax (Tamsulosin Hcl) 0.4 Mg Cap.er.24h 4.6 Mg PO HS Zaditor (Ketotifen Fumarate) 5 Ml Drops 1 Drop EACHEYE BID Vitamin D3 (Cholecalciferol (Vitamin D3)) 5,000 Unit Tablet 50,000 Unit PO WEEKLY FRIDAY Tylenol (Acetaminophen) 325 Mg Tablet 650 Mg PO PRN Q6HRS PRN Colace (Docusate Sodium) 100 Mg Capsule 1 Cap PO BID Potassium Chloride Oral Liquid (Potassium Chloride) 20 Meq/15 Ml Liquid 20 Meq PO DAILY LAST DOSE GIVEN: DATE: TIME: NEXT DOSE DUE: DATE: TIME: I have reviewed the current psychotropics carefully including drug interactions. Risk benefit ratio favors no change other than as noted in my dictated progress note. Diagnosis: Problems: (1) Anxiety disorder (2) Mild cognitive disorder (3) Impulse control disorder (4) Major depressive disorder, recurrent episode (5) Syncopal episodes (6) Weakness (7) PSVT (paroxysmal supraventricular tachycardia) (8) Cardiac syncope (9) Suicidal ideation CHELSEA RINCON MD Mar 17, 2018 20:52
--- NOTE | 2018-03-17 21:14 | PN ---
DATE: 03/16/2018 PSYCHIATRIC PROGRESS NOTE This is a late entry 03/16/2018, covers elements not covered in my initial note. SUBJECTIVE: I met with the patient in the evening in his room. The patient slept 7-1/2 hours previous evening, has been working with PT and OT, uses walker to ambulate. REVIEW OF SYSTEMS: No CV, , pulmonary, eye, ENT system symptoms on review. MENTAL STATUS EXAM: Oriented to himself and situation. Speech moderate latency, low in rate and rhythm, low in volume, coherent, abstraction fair, computation impaired, language function intact. Mood and affect somewhat withdrawn. No suicidal or homicidal ideation. LABORATORY DATA: Reviewed. IMPRESSION: Unchanged from initial note. PLAN: No change from initial note. CHELSEA RINCON MD DR: SHAZIA/shanta JOB#: [id number] / [id number]
[2018-03-18 05:45] VITALS: BP 130/78
[2018-03-18] MEDS: ASPIRIN 81 MG TAB.CHEW PO SCH (07:41)
[2018-03-18] MEDS: DOCUSATE SODIUM 100 MG CAPSULE PO SCH ×2 (07:41→20:31)
[2018-03-18] MEDS: POTASSIUM CHLORIDE 20 MEQ TABLET.ER. PO SCH (07:42)
[2018-03-18] MEDS: MEMANTINE 10 MG TABLET. PO SCH ×2 (07:44→20:31)
[2018-03-18] MEDS: LACTULOSE 20 GM/30 ML SOLUTION. PO PRN (10:19)
[2018-03-18] MEDS: FLECAINIDE 50 MG TABLET. PO SCH ×2 (10:19→20:32)
[2018-03-18 15:30] VITALS: BP 150/87
[2018-03-18] MEDS: traZODone 50 MG TABLET. PO SCH (20:31)
[2018-03-18] MEDS: TAMSULOSIN 0.4 MG CAP.ER.24H. PO SCH (20:31)
[2018-03-18] MEDS: risperiDONE ORAL 1 MG/ML 30ml BOTTLE. SL SCH (20:32)
--- NOTE | 2018-03-18 20:58 | PDOC ---
Exam Note: Óscar Note: Please also refer to the separate dictated note~for this date of service dictated separately.~Patient seen individually. Discussed the patient with Nursing staff reviewed the chart.~Reviewed interim history and current functioning. Reviewed vital signs,~Labs/ Radiology~and current medications noted below. Continue current treatment with the changes noted in the dictated addendum note Assessment: Vital Signs: Vital Signs Date Time Temp Pulse Resp B/P (MAP) Pulse Ox O2 Delivery O2 Flow Rate FiO2 03/18/18 20:32 61 150/87 03/18/18 15:30 97.1 16 97 Room Air I&O Intake and Output 03/18/18 07:00 Intake Total 1080 ml Balance 1080 ml Intake Oral 1080 ml Current Medications: Meds: Current Medications Acetaminophen (Tylenol) 650 mg PRN Q6HRS PRN PO PAIN / TEMP Last administered on 03/16/18at 16:23; Start 02/12/18 at 11:15 Multi-Ingredient Ointment (Analgesic Only) 1 nicole PRN QID PRN TP MUSCLE PAIN; Start 02/12/18 at 11:15 Al Hydroxide/Mg Hydroxide (Mylanta Plus Xs) 15 ml PRN AFTMEALHC PRN PO DYSPEPSIA; Start 02/12/18 at 11:15 Magnesium Hydroxide (Milk Of Magnesia) 2,400 mg PRN QHS PRN PO CONSTIPATION; Start 02/12/18 at 11:15 Acetaminophen (Tylenol) 650 mg PRN Q6HRS PRN PO PAIN; Start 02/12/18 at 12:00; Status Cancel Metoprolol Tartrate (Lopressor) 25 mg BID PO Last administered on 03/04/18at 08: 02; Start 02/12/18 at 21:00; Stop 03/04/18 at 17:14; Status DC Tamsulosin HCl (Flomax) 0.4 mg HS PO Last administered on 03/18/18at 20:31; Start 02/12/18 at 21:00 Aspirin (Children'S Aspirin) 81 mg DAILYWBKFT PO Last administered on at 07:41; Start 02/13/18 at 08:00 Docusate Sodium (Colace) 100 mg BID PO Last administered on 03/18/18at 20:31; Start 02/12/18 at 21:00 Flecainide Acetate (Tambocor) 50 mg BID PO Last administered on 03/18/18 20:32 ; Start 02/12/18 at 21:00 Memantine (Namenda) 10 mg BID PO Last administered on 03/18/18 20:31; Start at 21:00 Ketotifen Fumarate (Zaditor) 1 drop BID OU Last administered on 02/24/18 20:26 ; Start 02/12/18 at 21:00; Stop 02/26/18 at 16:34; Status DC Potassium Chloride (Klor-Con) 20 meq DAILYWBKFT PO Last administered on 07:42; Start 02/13/18 at 08:00 Witch Dorothy/ Glycerin (A.e.r Pads) 1 each PRN BID PRN TP hemorrhoids Last administered on 02/15/18 10:00; Start 02/12/18 at 12:00 Lactulose (Lactulose) 10 gm TID PRN PO CONSTIPATION Last administered on 20:22; Start 02/12/18 at 12:00; Stop 02/25/18 at 01:57; Status DC Fluoxetine HCl (PROzac) 10 mg DAILY PO Last administered on 02/16/18 09:08; Start 02/14/18 at 09:00; Stop 02/16/18 at 13:50; Status DC Risperidone (RisperDAL) 0.25 mg HS SL Last administered on 03/18/18 20:32; Start 02/13/18 at 22:30 Vitamin D (Vitamin D3) 50,000 unit WEEKLY PO Last administered on 03/14/18 07: 40; Start 02/14/18 at 13:30 Phenylephrine/ Shark Liver Oil (Preparation H) 1 supp PRN Q8HRS PRN [place] RECTAL PAIN Last administered on 02/15/18 17:28; Start 02/15/18 at 14:45 Fluvoxamine Maleate (Luvox) 25 mg DAILY PO Last administered on 02/18/18 08:05 ; Start 02/17/18 at 09:00; Stop 02/18/18 at 16:17; Status DC Fluvoxamine Maleate (Luvox) 50 mg DAILY PO Last administered on 02/21/18 08:12 ; Start 02/19/18 at 09:00; Stop 02/21/18 at 12:00; Status DC Fluvoxamine Maleate (Luvox) 75 mg DAILY PO Last administered on 02/26/18at 08:13 ; Start 02/21/18 at 09:00; Stop 02/26/18 at 09:56; Status DC Lactulose (Lactulose) 10 gm PRN TID PRN PO CONSTIPATION Last administered on 06/23at 10:19; Start 02/25/18 at 02:00 Fluvoxamine Maleate (Luvox) 100 mg DAILY PO Last administered on 03/18/18at 07: 40; Start 02/27/18 at 09:00 Ketotifen Fumarate (Zaditor) 1 drop PRN BID PRN OU ALLERGIES; Start 02/26/18 at 16:45 Metoprolol Tartrate (Lopressor) 12.5 mg BID PO Last administered on 03/06/18at 19:36; Start 03/04/18 at 21:00; Stop 03/07/18 at 15:42; Status DC Trazodone HCl (Desyrel) 50 mg PRN QHS PRN PO insomnia; Start 03/04/18 at 18:00 Trazodone HCl (Desyrel) 50 mg QHS PO Last administered on 03/18/18at 20:31; Start 03/04/18 at 21:00 Active Scripts Active Flecainide Acetate 100 Mg Tablet 50 Mg PO Q12HR 90 Days Reported Tucks (Witch Dorothy) 1 Each Med..pad 1 Each TP PRN BID PRN Pataday (Olopatadine Hcl) 2.5 Ml Drops 1 Drop EACHEYE BID Metoprolol Tartrate 25 Mg Tablet 25 Mg PO BID Lactulose 10 Gm/15 Ml Solution 10 Gm PO Flecainide Acetate 50 Mg Tablet 50 Mg PO BID Aspirin 81 Mg Tab.chew 81 Mg PO DAILY Risperdal (Risperidone) 0.5 Mg Tablet 0.5 Mg SL QHS Coreg (Carvedilol) 3.125 Mg Tablet 3.125 Mg PO BIDWMEALS Olanzapine 5 Mg Tablet 1.25 Mg PO PRN PRN MDD 5mg/24hrs Namenda (Memantine Hcl) 10 Mg Tablet 10 Mg PO BID Prozac (Fluoxetine Hcl) 40 Mg Capsule 40 Mg PO DAILY Flomax (Tamsulosin Hcl) 0.4 Mg Cap.er.24h 4.6 Mg PO HS Zaditor (Ketotifen Fumarate) 5 Ml Drops 1 Drop EACHEYE BID Vitamin D3 (Cholecalciferol (Vitamin D3)) 5,000 Unit Tablet 50,000 Unit PO WEEKLY FRIDAY Tylenol (Acetaminophen) 325 Mg Tablet 650 Mg PO PRN Q6HRS PRN Colace (Docusate Sodium) 100 Mg Capsule 1 Cap PO BID Potassium Chloride Oral Liquid (Potassium Chloride) 20 Meq/15 Ml Liquid 20 Meq PO DAILY LAST DOSE GIVEN: DATE: TIME: NEXT DOSE DUE: DATE: TIME: I have reviewed the current psychotropics carefully including drug interactions. Risk benefit ratio favors no change other than as noted in my dictated progress note. Diagnosis: Problems: (1) Anxiety disorder (2) Mild cognitive disorder (3) Impulse control disorder (4) Major depressive disorder, recurrent episode (5) Syncopal episodes (6) Weakness (7) PSVT (paroxysmal supraventricular tachycardia) (8) Cardiac syncope (9) Suicidal ideation CHELSEA RINCON MD Mar 18, 2018 20:58
--- NOTE | 2018-03-18 21:58 | PN ---
DATE: 03/17/2018 This is a late entry 03/17/2018, covers elements not covered in my initial note. SUBJECTIVE: I met with the patient in the evening. The patient slept 9 hours previous night. The patient goes to the dining room, but otherwise withdrawn, spends much time in his room. REVIEW OF SYSTEMS: No CV, , pulmonary, eye, ENT system symptoms on review. MENTAL STATUS EXAM: Oriented to himself and situation. Speech moderate latency, often responses monosyllabic. Abstraction fair, computation impaired, language function intact, attention span short. Mood and affect somewhat withdrawn, but improved. Slept 9 hours previous night. IMPRESSION: Unchanged from initial note. PLAN: No change from initial note. MAN Huan RINCON MD DR: SHAZIA/shanta JOB#: [id number] / [id number]
[2018-03-19 05:38] VITALS: BP 134/83
[2018-03-19] MEDS: MEMANTINE 10 MG TABLET. PO SCH ×2 (08:50→19:51)
[2018-03-19] MEDS: POTASSIUM CHLORIDE 20 MEQ TABLET.ER. PO SCH (08:50)
[2018-03-19] MEDS: ASPIRIN 81 MG TAB.CHEW PO SCH (08:50)
[2018-03-19] MEDS: DOCUSATE SODIUM 100 MG CAPSULE PO SCH ×2 (08:50→19:51)
[2018-03-19] MEDS: FLECAINIDE 50 MG TABLET. PO SCH ×2 (08:51→19:51)
[2018-03-19 16:10] VITALS: BP 153/89
[2018-03-19] MEDS: traZODone 50 MG TABLET. PO SCH (19:51)
[2018-03-19] MEDS: TAMSULOSIN 0.4 MG CAP.ER.24H. PO SCH (19:51)
[2018-03-19] MEDS: risperiDONE ORAL 1 MG/ML 30ml BOTTLE. SL SCH (19:51)
--- NOTE | 2018-03-19 20:51 | PDOC ---
Exam Note: Óscar Note: Please also refer to the separate dictated note~for this date of service dictated separately.~Patient seen individually. Discussed the patient with Nursing staff reviewed the chart.~Reviewed interim history and current functioning. Reviewed vital signs,~Labs/ Radiology~and current medications noted below. Continue current treatment with the changes noted in the dictated addendum note Assessment: Vital Signs: Vital Signs Date Time Temp Pulse Resp B/P (MAP) Pulse Ox O2 Delivery O2 Flow Rate FiO2 03/19/18 19:51 65 153/89 03/19/18 16:10 97.4 16 94 03/18/18 15:30 Room Air I&O Intake and Output 03/19/18 07:00 Intake Total 420 ml Balance 420 ml Intake Oral 420 ml Current Medications: Meds: Current Medications Acetaminophen (Tylenol) 650 mg PRN Q6HRS PRN PO PAIN / TEMP Last administered on 03/16/18at 16:23; Start 02/12/18 at 11:15 Multi-Ingredient Ointment (Analgesic [place]) 1 nicole PRN QID PRN TP MUSCLE PAIN; Start 02/12/18 at 11:15 Al Hydroxide/Mg Hydroxide (Mylanta Plus Xs) 15 ml PRN AFTMEALHC PRN PO DYSPEPSIA; Start 02/12/18 at 11:15 Magnesium Hydroxide (Milk Of Magnesia) 2,400 mg PRN QHS PRN PO CONSTIPATION; Start 02/12/18 at 11:15 Acetaminophen (Tylenol) 650 mg PRN Q6HRS PRN PO PAIN; Start 02/12/18 at 12:00; Status Cancel Metoprolol Tartrate (Lopressor) 25 mg BID PO Last administered on 03/04/18at 08: 02; Start 02/12/18 at 21:00; Stop 03/04/18 at 17:14; Status DC Tamsulosin HCl (Flomax) 0.4 mg HS PO Last administered on 03/19/18at 19:51; Start 02/12/18 at 21:00 Aspirin (Children'S Aspirin) 81 mg DAILYWBKFT PO Last administered on at 08:50; Start 02/13/18 at 08:00 Docusate Sodium (Colace) 100 mg BID PO Last administered on 03/19/18at 19:51; Start 02/12/18 at 21:00 Flecainide Acetate (Tambocor) 50 mg BID PO Last administered on 03/19/18 19:51 ; Start 02/12/18 at 21:00 Memantine (Namenda) 10 mg BID PO Last administered on 03/19/18 19:51; Start at 21:00 Ketotifen Fumarate (Zaditor) 1 drop BID OU Last administered on 02/24/18 20:26 ; Start 02/12/18 at 21:00; Stop 02/26/18 at 16:34; Status DC Potassium Chloride (Klor-Con) 20 meq DAILYWBKFT PO Last administered on 08:50; Start 02/13/18 at 08:00 Witch Dorothy/ Glycerin (A.e.r Pads) 1 each PRN BID PRN TP hemorrhoids Last administered on 02/15/18 10:00; Start 02/12/18 at 12:00 Lactulose (Lactulose) 10 gm TID PRN PO CONSTIPATION Last administered on 20:22; Start 02/12/18 at 12:00; Stop 02/25/18 at 01:57; Status DC Fluoxetine HCl (PROzac) 10 mg DAILY PO Last administered on 02/16/18 09:08; Start 02/14/18 at 09:00; Stop 02/16/18 at 13:50; Status DC Risperidone (RisperDAL) 0.25 mg HS SL Last administered on 03/19/18 19:51; Start 02/13/18 at 22:30 Vitamin D (Vitamin D3) 50,000 unit WEEKLY PO Last administered on 03/14/18 07: 40; Start 02/14/18 at 13:30 Phenylephrine/ Shark Liver Oil (Preparation H) 1 supp PRN Q8HRS PRN [place] RECTAL PAIN Last administered on 02/15/18 17:28; Start 02/15/18 at 14:45 Fluvoxamine Maleate (Luvox) 25 mg DAILY PO Last administered on 02/18/18 08:05 ; Start 02/17/18 at 09:00; Stop 02/18/18 at 16:17; Status DC Fluvoxamine Maleate (Luvox) 50 mg DAILY PO Last administered on 8/18/18at 08:12 ; Start 02/19/18 at 09:00; Stop 02/21/18 at 12:00; Status DC Fluvoxamine Maleate (Luvox) 75 mg DAILY PO Last administered on 02/26/18at 08:13 ; Start 02/21/18 at 09:00; Stop 02/26/18 at 09:56; Status DC Lactulose (Lactulose) 10 gm PRN TID PRN PO CONSTIPATION Last administered on 06/23at 10:19; Start 02/25/18 at 02:00 Fluvoxamine Maleate (Luvox) 100 mg DAILY PO Last administered on 03/19/18at 08: 50; Start 02/27/18 at 09:00 Ketotifen Fumarate (Zaditor) 1 drop PRN BID PRN OU ALLERGIES; Start 02/26/18 at 16:45 Metoprolol Tartrate (Lopressor) 12.5 mg BID PO Last administered on 03/06/18at 19:36; Start 03/04/18 at 21:00; Stop 03/07/18 at 15:42; Status DC Trazodone HCl (Desyrel) 50 mg PRN QHS PRN PO insomnia; Start 03/04/18 at 18:00 Trazodone HCl (Desyrel) 50 mg QHS PO Last administered on 03/19/18at 19:51; Start 03/04/18 at 21:00 Active Scripts Active Flecainide Acetate 100 Mg Tablet 50 Mg PO Q12HR 90 Days Reported Tucks (Jose L De La Cruz) 1 Each Med..pad 1 Each TP PRN BID PRN Pataday (Olopatadine Hcl) 2.5 Ml Drops 1 Drop EACHEYE BID Metoprolol Tartrate 25 Mg Tablet 25 Mg PO BID Lactulose 10 Gm/15 Ml Solution 10 Gm PO Flecainide Acetate 50 Mg Tablet 50 Mg PO BID Aspirin 81 Mg Tab.chew 81 Mg PO DAILY Risperdal (Risperidone) 0.5 Mg Tablet 0.5 Mg SL QHS Coreg (Carvedilol) 3.125 Mg Tablet 3.125 Mg PO BIDWMEALS Olanzapine 5 Mg Tablet 1.25 Mg PO PRN PRN MDD 5mg/24hrs Namenda (Memantine Hcl) 10 Mg Tablet 10 Mg PO BID Prozac (Fluoxetine Hcl) 40 Mg Capsule 40 Mg PO DAILY Flomax (Tamsulosin Hcl) 0.4 Mg Cap.er.24h 4.6 Mg PO HS Zaditor (Ketotifen Fumarate) 5 Ml Drops 1 Drop EACHEYE BID Vitamin D3 (Cholecalciferol (Vitamin D3)) 5,000 Unit Tablet 50,000 Unit PO WEEKLY FRIDAY Tylenol (Acetaminophen) 325 Mg Tablet 650 Mg PO PRN Q6HRS PRN Colace (Docusate Sodium) 100 Mg Capsule 1 Cap PO BID Potassium Chloride Oral Liquid (Potassium Chloride) 20 Meq/15 Ml Liquid 20 Meq PO DAILY LAST DOSE GIVEN: DATE: TIME: NEXT DOSE DUE: DATE: TIME: I have reviewed the current psychotropics carefully including drug interactions. Risk benefit ratio favors no change other than as noted in my dictated progress note. Diagnosis: Problems: (1) Anxiety disorder (2) Mild cognitive disorder (3) Impulse control disorder (4) Major depressive disorder, recurrent episode (5) Syncopal episodes (6) Weakness (7) PSVT (paroxysmal supraventricular tachycardia) (8) Cardiac syncope (9) Suicidal ideation CHELSEA RINCON MD Mar 19, 2018 20:51
--- NOTE | 2018-03-19 22:28 | PN ---
DATE: 03/18/2018 PSYCHIATRIC PROGRESS NOTE This is a late entry, 03/18/2018, covers elements not covered in my initial note. SUBJECTIVE: I met with the patient in the evening in his room. The patient slept 6-1/4 hours previous night. He spent much time with the student nurse and was quite interactive and verbal, more animated, waving at staff. REVIEW OF SYSTEMS: No CV, , pulmonary, eye system symptoms on review. Gait unsteady with walker. MENTAL STATUS EXAM: Oriented to himself and situation. Speech moderate latency, low in rate and rhythm, low in volume, often responses monosyllabic. Abstraction fair, computation impaired, language function intact, attention span short. Mood and affect somewhat withdrawn, dysphoric, but overall better. No suicidal or homicidal ideation. LABORATORY DATA: Reviewed. IMPRESSION: Unchanged from initial note. PLAN: No change from initial note. Discussed with social service staff. DISPOSITION: Being planned to a half-way. CHELSEA RINCON MD DR: SHAZIA/shanta JOB#: [id number] / [id number]
[2018-03-20 06:01] VITALS: BP 158/87
[2018-03-20] MEDS: MEMANTINE 10 MG TABLET. PO SCH ×2 (08:08→19:32)
[2018-03-20] MEDS: DOCUSATE SODIUM 100 MG CAPSULE PO SCH ×2 (08:08→19:32)
[2018-03-20] MEDS: POTASSIUM CHLORIDE 20 MEQ TABLET.ER. PO SCH (08:08)
[2018-03-20] MEDS: ASPIRIN 81 MG TAB.CHEW PO SCH (08:08)
[2018-03-20] MEDS: FLECAINIDE 50 MG TABLET. PO SCH ×2 (08:10→19:33)
[2018-03-20 15:25] VITALS: BP 130/78
[2018-03-20] MEDS: traZODone 50 MG TABLET. PO SCH (19:32)
[2018-03-20] MEDS: TAMSULOSIN 0.4 MG CAP.ER.24H. PO SCH (19:32)
[2018-03-20] MEDS: risperiDONE ORAL 1 MG/ML 30ml BOTTLE. SL SCH (19:33)
--- NOTE | 2018-03-20 20:45 | PDOC ---
Exam Note: Óscar Note: Please also refer to the separate dictated note~for this date of service dictated separately.~Patient seen individually. Discussed the patient with Nursing staff reviewed the chart.~Reviewed interim history and current functioning. Reviewed vital signs,~Labs/ Radiology~and current medications noted below. Continue current treatment with the changes noted in the dictated addendum note Assessment: Vital Signs: Vital Signs Date Time Temp Pulse Resp B/P (MAP) Pulse Ox O2 Delivery O2 Flow Rate FiO2 03/20/18 19:33 72 130/78 03/20/18 15:25 98.4 16 96 Room Air I&O Intake and Output 03/20/18 07:00 Intake Total 480 ml Balance 480 ml Intake Oral 480 ml # Voids 1 Current Medications: Meds: Current Medications Acetaminophen (Tylenol) 650 mg PRN Q6HRS PRN PO PAIN / TEMP Last administered on 03/16/18at 16:23; Start 02/12/18 at 11:15 Multi-Ingredient Ointment (Analgesic [place]) 1 nicole PRN QID PRN TP MUSCLE PAIN; Start 02/12/18 at 11:15 Al Hydroxide/Mg Hydroxide (Mylanta Plus Xs) 15 ml PRN AFTMEALHC PRN PO DYSPEPSIA; Start 02/12/18 at 11:15 Magnesium Hydroxide (Milk Of Magnesia) 2,400 mg PRN QHS PRN PO CONSTIPATION; Start 02/12/18 at 11:15 Acetaminophen (Tylenol) 650 mg PRN Q6HRS PRN PO PAIN; Start 02/12/18 at 12:00; Status Cancel Metoprolol Tartrate (Lopressor) 25 mg BID PO Last administered on 03/04/18at 08: 02; Start 02/12/18 at 21:00; Stop 03/04/18 at 17:14; Status DC Tamsulosin HCl (Flomax) 0.4 mg HS PO Last administered on 03/20/18at 19:32; Start 02/12/18 at 21:00 Aspirin (Children'S Aspirin) 81 mg DAILYWBKFT PO Last administered on at 08:08; Start 02/13/18 at 08:00 Docusate Sodium (Colace) 100 mg BID PO Last administered on 03/20/18at 19:32; Start 02/12/18 at 21:00 Flecainide Acetate (Tambocor) 50 mg BID PO Last administered on 03/20/18 19:33 ; Start 02/12/18 at 21:00 Memantine (Namenda) 10 mg BID PO Last administered on 03/20/18 19:32; Start at 21:00 Ketotifen Fumarate (Zaditor) 1 drop BID OU Last administered on 02/24/18 20:26 ; Start 02/12/18 at 21:00; Stop 02/26/18 at 16:34; Status DC Potassium Chloride (Klor-Con) 20 meq DAILYWBKFT PO Last administered on 08:08; Start 02/13/18 at 08:00 Witch Dorothy/ Glycerin (A.e.r Pads) 1 each PRN BID PRN TP hemorrhoids Last administered on 02/15/18 10:00; Start 02/12/18 at 12:00 Lactulose (Lactulose) 10 gm TID PRN PO CONSTIPATION Last administered on 20:22; Start 02/12/18 at 12:00; Stop 02/25/18 at 01:57; Status DC Fluoxetine HCl (PROzac) 10 mg DAILY PO Last administered on 02/16/18 09:08; Start 02/14/18 at 09:00; Stop 02/16/18 at 13:50; Status DC Risperidone (RisperDAL) 0.25 mg HS SL Last administered on 03/20/18 19:33; Start 02/13/18 at 22:30 Vitamin D (Vitamin D3) 50,000 unit WEEKLY PO Last administered on 03/14/18 07: 40; Start 02/14/18 at 13:30 Phenylephrine/ Shark Liver Oil (Preparation H) 1 supp PRN Q8HRS PRN [place] RECTAL PAIN Last administered on 02/15/18 17:28; Start 02/15/18 at 14:45 Fluvoxamine Maleate (Luvox) 25 mg DAILY PO Last administered on 02/18/18 08:05 ; Start 02/17/18 at 09:00; Stop 02/18/18 at 16:17; Status DC Fluvoxamine Maleate (Luvox) 50 mg DAILY PO Last administered on 8/18/18at 08:12 ; Start 02/19/18 at 09:00; Stop 02/21/18 at 12:00; Status DC Fluvoxamine Maleate (Luvox) 75 mg DAILY PO Last administered on 02/26/18at 08:13 ; Start 02/21/18 at 09:00; Stop 02/26/18 at 09:56; Status DC Lactulose (Lactulose) 10 gm PRN TID PRN PO CONSTIPATION Last administered on 06/23at 10:19; Start 02/25/18 at 02:00 Fluvoxamine Maleate (Luvox) 100 mg DAILY PO Last administered on 03/20/18at 08: 08; Start 02/27/18 at 09:00 Ketotifen Fumarate (Zaditor) 1 drop PRN BID PRN OU ALLERGIES; Start 02/26/18 at 16:45 Metoprolol Tartrate (Lopressor) 12.5 mg BID PO Last administered on 03/06/18at 19:36; Start 03/04/18 at 21:00; Stop 03/07/18 at 15:42; Status DC Trazodone HCl (Desyrel) 50 mg PRN QHS PRN PO insomnia; Start 03/04/18 at 18:00 Trazodone HCl (Desyrel) 50 mg QHS PO Last administered on 03/20/18at 19:32; Start 03/04/18 at 21:00 Active Scripts Active Flecainide Acetate 100 Mg Tablet 50 Mg PO Q12HR 90 Days Reported Tucks (Witch Dorothy) 1 Each Med..pad 1 Each TP PRN BID PRN Pataday (Olopatadine Hcl) 2.5 Ml Drops 1 Drop EACHEYE BID Metoprolol Tartrate 25 Mg Tablet 25 Mg PO BID Lactulose 10 Gm/15 Ml Solution 10 Gm PO Flecainide Acetate 50 Mg Tablet 50 Mg PO BID Aspirin 81 Mg Tab.chew 81 Mg PO DAILY Risperdal (Risperidone) 0.5 Mg Tablet 0.5 Mg SL QHS Coreg (Carvedilol) 3.125 Mg Tablet 3.125 Mg PO BIDWMEALS Olanzapine 5 Mg Tablet 1.25 Mg PO PRN PRN MDD 5mg/24hrs Namenda (Memantine Hcl) 10 Mg Tablet 10 Mg PO BID Prozac (Fluoxetine Hcl) 40 Mg Capsule 40 Mg PO DAILY Flomax (Tamsulosin Hcl) 0.4 Mg Cap.er.24h 4.6 Mg PO HS Zaditor (Ketotifen Fumarate) 5 Ml Drops 1 Drop EACHEYE BID Vitamin D3 (Cholecalciferol (Vitamin D3)) 5,000 Unit Tablet 50,000 Unit PO WEEKLY FRIDAY Tylenol (Acetaminophen) 325 Mg Tablet 650 Mg PO PRN Q6HRS PRN Colace (Docusate Sodium) 100 Mg Capsule 1 Cap PO BID Potassium Chloride Oral Liquid (Potassium Chloride) 20 Meq/15 Ml Liquid 20 Meq PO DAILY LAST DOSE GIVEN: DATE: TIME: NEXT DOSE DUE: DATE: TIME: I have reviewed the current psychotropics carefully including drug interactions. Risk benefit ratio favors no change other than as noted in my dictated progress note. Diagnosis: Problems: (1) Anxiety disorder (2) Mild cognitive disorder (3) Impulse control disorder (4) Major depressive disorder, recurrent episode (5) Syncopal episodes (6) Weakness (7) PSVT (paroxysmal supraventricular tachycardia) (8) Cardiac syncope (9) Suicidal ideation CHELSEA RINCON MD Mar 20, 2018 20:45
[2018-03-21] MEDS ORDERED: MAG355OR11 PO (00:37)
[2018-03-21] MEDS ORDERED: METH29OI TP (00:38)
[2018-03-21] MEDS ORDERED: MAGN2400 PO (00:38)
[2018-03-21] MEDS ORDERED: PHEN1SUP75 RC (00:40)
[2018-03-21] MEDS ORDERED: POTA20TA4 PO (00:40)
[2018-03-21] MEDS ORDERED: FLUV100T2 PO (00:41)
[2018-03-21] MEDS ORDERED: TRAZ-85 PO ×2 (00:41→00:42)
[2018-03-21] MEDS ORDERED: TAMS0.4C2 PO (00:41)
[2018-03-21] MEDS ORDERED: RISP1SOL SL (00:45)
--- NOTE | 2018-03-21 02:37 | PN ---
DATE: 03/19/2018 PSYCHIATRIC PROGRESS NOTE This late entry 03/19/2018 covers elements not covered in my initial note. SUBJECTIVE: I met with the patient in the evening, staffed at a treatment team meeting with the entire team in the morning. The patient slept 5 hours previous night. At the treatment team meeting, we talked at length about his placement options, possibly at [facility] in [place]. REVIEW OF SYSTEMS: Has some bowel obsession. No CV, , pulmonary, eye system symptoms on review. MENTAL STATUS EXAM: Oriented to himself and situation. Speech moderate latency, often responses monosyllabic. Abstraction fair, computation impaired, language function intact. Mood and affect somewhat withdrawn. LABORATORY DATA: Reviewed. IMPRESSION: Unchanged from initial note. PLAN: No change from initial note. Transition to retirement next Friday. MAN Huan RINCON MD DR: SHAZIA/shanta JOB#: [id number] / [id number]
[2018-03-21 06:00] VITALS: BP 138/81
[2018-03-21] MEDS: POTASSIUM CHLORIDE 20 MEQ TABLET.ER. PO SCH (08:08)
[2018-03-21] MEDS: ASPIRIN 81 MG TAB.CHEW PO SCH (08:08)
[2018-03-21] MEDS: DOCUSATE SODIUM 100 MG CAPSULE PO SCH (08:09)
[2018-03-21] MEDS: MEMANTINE 10 MG TABLET. PO SCH (08:09)
[2018-03-21 08:10] VITALS: BP 138/81
[2018-03-21] MEDS: FLECAINIDE 50 MG TABLET. PO SCH (08:10)
[2018-03-21] MEDS: CHOLECALCIFEROL (VITAMIN D3) 50,000 UNIT CAPSULE PO SCH (08:11)
--- NOTE | 2018-03-23 18:32 | PDOC ---
Exam Note: Óscar Note: Please also refer to the separate dictated note~for this date of service dictated separately.~Patient seen individually. Discussed the patient with Nursing staff reviewed the chart.~Reviewed interim history and current functioning. Reviewed vital signs,~Labs/ Radiology~and current medications noted below. Continue current treatment with the changes noted in the dictated addendum note. This is a late entry for Mar Assessment: Vital Signs: VS - Last 72 Hours, by Label Date Time Temp Pulse Resp B/P (MAP) Pulse Ox O2 Delivery O2 Flow Rate FiO2 03/21/18 08:10 60 138/81 03/21/18 06:00 97.0 60 20 138/81 (100) 98 03/20/18 19:33 72 130/78 Vital Signs Date Time Temp Pulse Resp B/P (MAP) Pulse Ox O2 Delivery O2 Flow Rate FiO2 03/21/18 08:10 60 138/81 03/21/18 06:00 97.0 20 98 03/20/18 15:25 Room Air Current Medications: Meds: Current Medications Acetaminophen (Tylenol) 650 mg PRN Q6HRS PRN PO PAIN / TEMP Last administered on 03/16/18at 16:23; Start 02/12/18 at 11:15; Stop 03/21/18 at 13:30; Status DC Multi-Ingredient Ointment (Analgesic [place]) 1 mainor PRN QID PRN TP MUSCLE PAIN; Start 02/12/18 at 11:15; Stop 03/21/18 at 13:30; Status DC Al Hydroxide/Mg Hydroxide (Mylanta Plus Xs) 15 ml PRN AFTMEALHC PRN PO DYSPEPSIA; Start 02/12/18 at 11:15; Stop 03/21/18 at 13:30; Status DC Magnesium Hydroxide (Milk Of Magnesia) 2,400 mg PRN QHS PRN PO CONSTIPATION; Start 02/12/18 at 11:15; Stop 03/21/18 at 13:30; Status DC Acetaminophen (Tylenol) 650 mg PRN Q6HRS PRN PO PAIN; Start 02/12/18 at 12:00; Status Cancel Metoprolol Tartrate (Lopressor) 25 mg BID PO Last administered on 03/04/18at 08: 02; Start 02/12/18 at 21:00; Stop 03/04/18 at 17:14; Status DC Tamsulosin HCl (Flomax) 0.4 mg HS PO Last administered on 03/20/18at 19:32; Start 02/12/18 at 21:00; Stop 03/21/18 at 13:30; Status DC Aspirin (Children'S Aspirin) 81 mg DAILYWBKFT PO Last administered on at 08:08; Start 02/13/18 at 08:00; Stop 03/21/18 at 13:30; Status DC Docusate Sodium (Colace) 100 mg BID PO Last administered on 03/21/18at 08:09; Start 02/12/18 at 21:00; Stop 03/21/18 at 13:30; Status DC Flecainide Acetate (Tambocor) 50 mg BID PO Last administered on 03/21/18at 08:10 ; Start 02/12/18 at 21:00; Stop 03/21/18 at 13:30; Status DC Memantine (Namenda) 10 mg BID PO Last administered on 03/21/18at 08:09; Start at 21:00; Stop 03/21/18 at 13:30; Status DC Ketotifen Fumarate (Zaditor) 1 drop BID OU Last administered on 02/24/18at 20:26 ; Start 02/12/18 at 21:00; Stop 02/26/18 at 16:34; Status DC Potassium Chloride (Klor-Con) 20 meq DAILYWBKFT PO Last administered on at 08:08; Start 02/13/18 at 08:00; Stop 03/21/18 at 13:30; Status DC Witch Dorothy/ Glycerin (A.e.r Pads) 1 each PRN BID PRN TP hemorrhoids Last administered on 02/15/18at 10:00; Start 02/12/18 at 12:00; Stop 03/21/18 at 13:30 ; Status DC Lactulose (Lactulose) 10 gm TID PRN PO CONSTIPATION Last administered on at 20:22; Start 02/12/18 at 12:00; Stop 02/25/18 at 01:57; Status DC Fluoxetine HCl (PROzac) 10 mg DAILY PO Last administered on 02/16/18at 09:08; Start 02/14/18 at 09:00; Stop 02/16/18 at 13:50; Status DC Risperidone (RisperDAL) 0.25 mg HS SL Last administered on 03/20/18at 19:33; Start 02/13/18 at 22:30; Stop 03/21/18 at 13:30; Status DC Vitamin D (Vitamin D3) 50,000 unit WEEKLY PO Last administered on 03/21/18at 08: 11; Start 02/14/18 at 13:30; Stop 03/21/18 at 13:30; Status DC Phenylephrine/ Shark Liver Oil (Preparation H) 1 supp PRN Q8HRS PRN AK RECTAL PAIN Last administered on 02/15/18at 17:28; Start 02/15/18 at 14:45; Stop at 13:30; Status DC Fluvoxamine Maleate (Luvox) 25 mg DAILY PO Last administered on 02/18/18at 08:05 ; Start 02/17/18 at 09:00; Stop 02/18/18 at 16:17; Status DC Fluvoxamine Maleate (Luvox) 50 mg DAILY PO Last administered on 02/21/18at 08:12 ; Start 02/19/18 at 09:00; Stop 02/21/18 at 12:00; Status DC Fluvoxamine Maleate (Luvox) 75 mg DAILY PO Last administered on 02/26/18at 08:13 ; Start 02/21/18 at 09:00; Stop 02/26/18 at 09:56; Status DC Lactulose (Lactulose) 10 gm PRN TID PRN PO CONSTIPATION Last administered on 06/23at 10:19; Start 02/25/18 at 02:00; Stop 03/21/18 at 13:30; Status DC Fluvoxamine Maleate (Luvox) 100 mg DAILY PO Last administered on 03/21/18at 08: 09; Start 02/27/18 at 09:00; Stop 03/21/18 at 13:30; Status DC Ketotifen Fumarate (Zaditor) 1 drop PRN BID PRN OU ALLERGIES; Start 02/26/18 at 16:45; Stop 03/21/18 at 13:30; Status DC Metoprolol Tartrate (Lopressor) 12.5 mg BID PO Last administered on 03/06/18at 19:36; Start 03/04/18 at 21:00; Stop 03/07/18 at 15:42; Status DC Trazodone HCl (Desyrel) 50 mg PRN QHS PRN PO insomnia; Start 03/04/18 at 18:00 ; Stop 03/21/18 at 13:30; Status DC Trazodone HCl (Desyrel) 50 mg QHS PO Last administered on 03/20/18at 19:32; Start 03/04/18 at 21:00; Stop 03/21/18 at 13:30; Status DC Active Scripts Active Flecainide Acetate 100 Mg Tablet 50 Mg PO Q12HR 90 Days Reported Risperidone 1 Mg/1 Ml Solution 0.25 Mg SL HS Trazodone Hcl 50 Mg Tablet 50 Mg PO PRN QHS PRN May administer 1 hour after first dose if still unable to sleep. Trazodone Hcl 50 Mg Tablet 50 Mg PO HS Fluvoxamine Maleate 100 Mg Tablet 100 Mg PO DAILY Tamsulosin Hcl 0.4 Mg Cap.er.24h 0.4 Mg PO HS Klor-Con M20 (Potassium Chloride) 20 Meq Tab.er.prt 20 Meq PO DAILYWBKFT Preparation H Suppository (Phenylephrine Hcl/[place] Butter) 1 Each Supp.rect 1 Supp RC PRN Q8HRS PRN Analgesic [place] (Methyl Salicylate/Menthol) 28 Gm Oint...g. 1 Mainor TP PRN QID PRN Milk Of Magnesia (Magnesium Hydroxide) 2,400 Mg/10 Ml Oral.susp 2,400 Mg PO PRN QHS PRN Maalox Advanced Suspension (Mag Hydrox/Aluminum Hyd/Simeth) 355 Ml Oral.susp 15 Ml PO PRN AFTMEALHC PRN Tucks (Witch Dorothy) 1 Each Med..pad 1 Each TP PRN BID PRN Pataday (Olopatadine Hcl) 2.5 Ml Drops 1 Drop EACHEYE BID Lactulose 10 Gm/15 Ml Solution 10 Gm PO PRN TID PRN Aspirin 81 Mg Tab.chew 81 Mg PO DAILY Namenda (Memantine Hcl) 10 Mg Tablet 10 Mg PO BID Vitamin D3 (Cholecalciferol (Vitamin D3)) 5,000 Unit Tablet 50,000 Unit PO WEEKLY THURSDAY Tylenol (Acetaminophen) 325 Mg Tablet 650 Mg PO PRN Q6HRS PRN Colace (Docusate Sodium) 100 Mg Capsule 1 Cap PO BID I have reviewed the current psychotropics carefully including drug interactions. Risk benefit ratio favors no change other than as noted in my dictated progress note. Diagnosis: Problems: (1) Major depressive disorder, recurrent episode (2) Impulse control disorder (3) Mild cognitive disorder (4) Anxiety disorder CHELSEA RINCON MD Mar 23, 2018 18:32
--- NOTE | 2018-03-24 00:02 | PN ---
DATE: 03/20/2018 This is a late entry for 03/20/2018 covers elements not covered in my initial note. SUBJECTIVE: I met with the patient in the evening. The patient slept 6-3/4 hours previous night. He is obsessed with his bowels, spends much time in his room, but comes out for activities at times. REVIEW OF SYSTEMS: No CV, , pulmonary, eye system symptoms on review. MENTAL STATUS EXAM: Oriented to himself and situation. Speech is coherent, has some latency, low in volume. Abstraction fair, computation impaired, language function intact, attention span short. Mood and affect somewhat withdrawn. LABORATORY DATA: Reviewed. IMPRESSION: Unchanged from initial note. PLAN: No change from initial note. MAN Huan RINCON MD DR: SHAZIA/shanta JOB#: [id number] / [id number]
--- NOTE | 2018-03-24 09:32 | DS ---
DATE OF DISCHARGE: 03/21/2018 DISCHARGE SUMMARY/PSYCHIATRIC PROGRESS NOTE This late entry, date of service 03/21/2018, covers elements not covered in my initial note. REASON FOR ADMISSION: The patient is an 87-year-old male, who was admitted from [facility] Emergency Room where he presented from home following increased aggression towards his . The police had to be called to the home. He was having thoughts of hurting his . Behaviors were deemed dangerous, out of control. He was paranoid, depressed, aggressive, had failed a prior inpatient hospitalization at our facility in outpatient treatment. He was admitted for psychiatric stabilization. SIGNIFICANT FINDINGS AND CLINICAL COURSE: Following admission, the patient was seen daily individually by myself from a psychiatric standpoint, medical followup with Dr. Ochoa/Dr. Britton. The patient was extremely withdrawn, depressed, irritable, angry. Adjustments were made in his psychotropics. He seemed to respond to a combination of Namenda 10 b.i.d., Risperdal 0.25 mg at bedtime, trazodone 50 at bedtime, may repeat x 1 for insomnia. Luvox was added and gradually increased to 100 mg daily as he was noted to be extremely obsessive, ruminative and bubble obsessed. Gradually mood appeared to improve and he was less irritable. No suicidal or homicidal ideation were noted. REVIEW OF SYSTEMS: Ambulation impaired with walker. No CV, , pulmonary, eye, ENT system symptoms on review. Reliability varies. MENTAL STATUS EXAM: Oriented to himself and situation. Speech moderate latency, low in rate and rhythm, low in volume, often responses monosyllabic. Abstraction fair, computation impaired, language function intact, attention span short. Mood and affect was improved, less obsessive. CONDITION AT DISCHARGE: Improved. FINAL DIAGNOSES: Major depressive disorder, recurrent with psychotic features, mild cognitive impairment; anxiety disorder, unspecified; impulse control disorder, unspecified. Rest unchanged from admission. DISCHARGE MEDICATIONS: Please refer to the MRAD. DISCHARGE INSTRUCTIONS: Outpatient psychiatric medical followup at the snf. MAN Huan RINCON MD DR: SHAZIA/shanta JOB#: [id number] / [id number]
== END 2018-03-21 13:29 | DRG 885 ==
LOC: ER 02:28 → GEROPSY 09:03
PROVIDERS: ADMIT Psychiatry & Neurology Psychiatry; ATTEND Psychiatry & Neurology Psychiatry
DX: F33.3 Major depressive disorder, recurrent, severe with psychotic symptoms (principal); I47.1 Supraventricular tachycardia; F03.91 Unspecified dementia, unspecified severity, with behavioral disturbance; R45.851 Suicidal ideations; E11.42 Type 2 diabetes mellitus with diabetic polyneuropathy; E78.5 Hyperlipidemia, unspecified; I25.10 Atherosclerotic heart disease of native coronary artery without angina pectoris; I10 Essential (primary) hypertension; F63.9 Impulse disorder, unspecified; F42.9 Obsessive-compulsive disorder, unspecified; F09 Unspecified mental disorder due to known physiological condition; F43.10 Post-traumatic stress disorder, unspecified; K21.9 Gastro-esophageal reflux disease without esophagitis; I48.91 Unspecified atrial fibrillation; K59.00 Constipation, unspecified; N40.0 Benign prostatic hyperplasia without lower urinary tract symptoms; K64.9 Unspecified hemorrhoids; Z88.1 Allergy status to other antibiotic agents; Z88.8 Allergy status to other drugs, medicaments and biological substances; Z91.19 Patient's noncompliance with other medical treatment and regimen; I25.2 Old myocardial infarction; Z79.899 Other long term (current) drug therapy
CPT/HCPCS: 36415; 71045; 71046; 80048; 80053; 80061; 80307; 81001; 82306; 82553; 82607; 83036; 83540; 83550; 83735; 83880; 84436; 84443; 84480; 84484; 85025; 85610; 85651; 85730; 86592; 93005; 97116; 99285-25; G0479